=== PATIENT | female | born 1965 ===

== ENCOUNTER 2023-10-03 19:28 | Outpatient (REF) | payer MEDICARE, SELFPAY ==
[2023-10-04 00:23] LABS: C Reactive Protein <0.50 mg/dL (<=0.50)
[2023-10-11 16:10] LABS: Copper Level 105 ug/dL (80-158); Zinc Level 74 ug/dL (44-115)
== END 2023-10-03 19:29 | disposition home or self-care (01) ==
LOC: LAB 19:28
DX: K50.118 Crohn's disease of large intestine with other complication (principal); Z93.2 Ileostomy status
CPT/HCPCS: 36415; 82525; 84255; 84630; 86140

== ENCOUNTER 2023-10-05 13:56 | Outpatient (REF) | payer MEDICARE, SELFPAY ==
--- OUTSIDE RECORDS SUMMARY | 2023-10-05 14:21 | XMS_ITS | CCD ---
Author Name Unknown Address [address] [place] [address] Organization [facility] Care Team Providers Care Automotive Exhaust Emissions Technician Name Role Phone Tatyana FRITZ, Josué Trevizo Primary Care Provider JOSUÉ JOE Primary Care Unavailable JOSUÉ JOE Referring Unavailable JOSUÉ JOE Primary Care Unavailable Josué Joe MD Primary Care Provider [phone] Josué Joe MD Primary Care Provider [phone] DR JOSUÉ JOE Attending Unavailable TATYANA, DR MOSES Consulting Unavailable TATYANA, DR MOSES Admitting Unavailable Josué Joe MD Primary Care Provider Josué Joe MD Primary Care Provider Josué Joe MD Primary Care Provider RICKY GARCES Referring Unavailable JOSUÉ JOE Primary Care Unavailable COLTEN GUTIERREZ Referring Unavailable COLTEN GUTIERREZ Attending Unavailable JOSUÉ JOE Primary Care Unavailable PHILIP BRIGGS Referring Unavailable JOSUÉ JOE Primary Care Unavailable JOSUÉ JOE Primary Care Unavailable JOSUÉ JOE Primary Care Unavailable JARED CARDENAS Attending Unavailable ARNIE LOIN Referring Unavailable JOSUÉ JOE Primary Care Unavailable JOSUÉ JOE Primary Care Unavailable ARNIE LION A Referring Unavailable JOSUÉ JOE Primary Care Unavailable JOSUÉ JOE Primary Care Unavailable ONEAL, EDY Referring Unavailable JOSUÉ JOE Primary Care Unavailable DEVEN MARCE Attending Unavailable DEVEN MARCE Attending Unavailable JOSUÉ JOE Primary Care Unavailable JOSUÉ JOE Primary Care Unavailable ONEAL, EDY Attending Unavailable TATYANAJOSUÉIN Referring Unavailable JANELL KAPLAN Attending Unavailable TATYANAJOSUÉIN Primary Care Unavailable RICKY GARCES Referring Unavailable TATYANA, JOSUÉ LAUREANOIN Primary Care Unavailable RICKY GARCES Referring Unavailable TATYANA, JOSUÉ LAUREANOIN Primary Care Unavailable GINARICKY L Referring Unavailable TATYANAJOSUÉIN Primary Care Unavailable TATYANAJOSUÉ Primary Care Unavailable TATYANAJOSUÉIN Primary Care Unavailable ONEAL, EDY Referring Unavailable TATYANAJOSUÉIN Primary Care Unavailable MELBA REINA Attending Unavailable TATYANAJOSUÉ PERDUEIN Primary Care Unavailable TALIA VILLAGOMEZ Admitting Unavailable RENO BROWN Attending Unavailable TATYANAJOSUÉ PERDUEIN Primary Care Unavailable ARNIE LION Referring Unavailable TATYANAJOSUÉ PERDUE Primary Care Unavailable TATYANAJOSUÉ PERDUEIN Referring Unavailable TATYANAJOSUÉIN Primary Care Unavailable JANELL KAPLAN Attending Unavailable TATYANAJOSUÉ PERDUE Primary Care Unavailable ONEAL, EDY Attending Unavailable ONEAL, EDY Admitting Unavailable TATYANAJOSUÉ PERDUEIN Primary Care Unavailable ONEAL, EDY Attending Unavailable DEIDRE WOOD Admitting Unava ilable MELBA REINA Attending Unavailable TATYNAAJOSUÉ PERDUE Primary Care Unavailable TATYANAJOSUÉ PERDUE Primary Care Unavailable TATYANAJOSUÉ PERDUE Referring Unavailable TATAYNAJOSUÉ Primary Care Unavailable TATYANAJOSUÉIN Primary Care Unavailable ONEAL, EDY Attending Unavailable TATYANAJOSUÉ PERDUE Primary Care Unavailable TATYANAJOSUÉ PERDUE Referring Unavailable JANELL KAPLAN Attending Unavailable TATYANAJOSUÉIN Primary Care Unavailable ONEAL, EDY Referring Unavailable TATYANAJOSUÉIN Primary Care Unavailable ONEAL, EDY Referring Unavailable TATYANAJOSUÉIN Primary Care Unavailable ONEAL, EDY Referring Unavailable TATYANAJOSUÉIN Primary Care Unavailable ONEAL, EDY Referring Unavailable TATYANAJOSUÉIN Primary Care Unavailable ONEAL, EDY Attending Unavailable ONEAL, EDY Referring Unavailable TATYANAJOSUÉIN Primary Care Unavailable ONEAL, EDY Referring Unavailable COMFORT AVITIA MD Attending Unavailab COMFORT Rosado Referring Unavailable TATYANAJOSUÉIN Primary Care Unavailable JANELL KAPLAN Referring Unavail able TATYANAJOSUÉIN Primary Care Unavailable PASKI, JANELL ALPHONSO Referring Unavail able TATYANAJOSUÉ Primary Care Unavailable PASKI, JANELL ALPHONSO Referring Unavail able TATYANAJOSUÉ Primary Care Unavailable PASKI, JANELL APLHONSO Referring Unavail able TATYANAJOSUÉ PERDUE Primary Care Unavailable TATYANAJOSUÉ Primary Care Unavailable TATYANAJOSUÉ Primary Care Unavailable COMFORT AVITIA Referring Unavailable TATYANAJOSUÉ PERDUE Primary Care Unavailable PASKI, JANELL ALPHONSO Referring Unavail able TATYANA, JOSUÉ TREVIZO Primary Care Unavailable TATYANAJOSUÉ Primary Care Unavailable PASKI, JANELL ALPHONSO Referring Unavail able COMFORT AVITIA Referring Unavailable TATYANAJOSUÉ Primary Care Unavailable COMFORT AVITIA Referring Unavailable TATYANA, JOSUÉ TREVIZO Primary Care Unavailable PASKI, JANELL ALPHONSO Referring Unavail able TATYANA, JOSUÉ TREVIZO Primary Care Unavailable COMFORT AVITIA Referring Unavailable JOSUÉ JOE Primary Care Unavailable TATYANAJOSUÉ Primary Care Unavailable PASKI, JANELL ALPHONSO Referring Unavail able PASKI, JANELL ALPHONSO Referring Unavail able TATYANAJOSUÉ PERDUE Primary Care Unavailable PASKI, JANELL ALPHONSO Referring Unavail able JOSUÉ JOE Primary Care Unavailable TATYANAJOSUÉ PERDUE Referring Unavailable TATYANAJOSUÉ Primary Care Unavailable COMFORT AVITIA Referring Unavailable TATYANAJOSUÉ PERDUE Primary Care Unavailable COMFORT AVITIA Referring Unavailable JOSUÉ JOE Primary Care Unavailable JOSUÉ JOE Primary Care Unavailable PASKI, JANELL ALPHONSO Referring Unavail able PASKI, JANELL ALPHONSO Referring Unavail able TATYANAJOSUÉ Primary Care Unavailable TATYANAJOSUÉ Primary Care Unavailable PASKI, JANELL ALPHONSO Referring Unavail able PASKI, JANELL ALPHONSO Referring Unavail able TATYANAJOSUÉ PERDUE Primary Care Unavailable PASKI, JANELL ALPHONSO Referring Unavail able TATYANAJOSUÉ Primary Care Unavailable PASKI, JANELL ALPHONSO Referring Unavail able TATYANA, JOSUÉ TREVIZO Primary Care Unavailable COMFORT AVITIA Referring Unavailable TATYANAJOSUÉ PERDUE Primary Care Unavailable GRETA MONSALVE Referring Unavailable TATYANAJOSUÉ PERDUE Primary Care Unavailable PASKI, JANELL ALPHONSO Referring Unavail able TATYANA, JOSUÉ TREVIZO Primary Care Unavailable TATYANAJOSUÉ Primary Care Unavailable PASKI, JANELL CAMPBELLE Referring Unavail able PASKI, JANELL CAMPBELLE Referring Unavail able TATYANA, JOSUÉ TREVIZO Primary Care Unavailable COMFORT AVITIA Referring Unavailable TATYANA, JOSUÉ TREVIZO Primary Care Unavailable TATYANA, JOSUÉ TREVIZO Primary Care Unavailable PASKI, JANELL CAMPBELLE Referring Unavail able COMFORT AVITIA Referring Unavailable TATYANA, JOSUÉ TREVIZO Primary Care Unavailable TATYANA, JOSUÉ TREVIZO Primary Care Unavailable PASKI, JANELL CAMPBELLE Referring Unavail able AOUAD, LORE Garcia Consulting Unavailable TATYANA, JOSUÉ LAUREANOIN Attending Unavailable TATYANA, JOSUÉ TREVIZO Admitting Unavailable TATYANA, JOSUÉ TREVIZO Primary Care Unavailable BOBBY, ANDRA Consulting Unavailable CRISLESLIE AMARAL Attending Unavailable TATYANA, JOSUÉ TREVIZO Primary Care Unavailable COMFORT AVITIA Referring Unavailable TATYANA, JOSUÉ TREVIZO Primary Care Unavailable PASKI, JANELL CAMPBELLE Referring Unavail able TATYANA, JOSUÉ TREVIZO Primary Care Unavailable PASKI, JANELL CAMPBELLE Referring Unavail able TATYANA, JOSUÉ TREVIZO Primary Care Unavailable PASKI, JANELL MOOREERINE Referring Unavail able TATYANA, JOSUÉ TREVIZO Primary Care Unavailable Allergies Allergy Classification Reported Allergen(s) Allergy Type Date of Onset Reaction(s) Facility Quinolones (antibiotic) (1 source) Ciprofloxacin Drug Allergy 0 Diarrhea [facility] [employer] Work Phone: (20 sources) Ciprofloxacin; Translations: [CIPROFLOXACIN] Drug Allergy 0 Diarrhea [facility] [employer] Phone: (20 sources) Methotrexate; Translations: [METHOTREXATE] Drug Allergy 3 Other: See Comments, Dizziness or Vertigo [facility] (20 sources) Vancomycin; Translations: [VANCOMYCIN] Drug Allergy 3 Other: See Comments, Other (See Comments) [facility] Work Phone: NEGATED: Highlighted row has been ruled out!Unclassified (4 sources) Other Propensity to adverse reactions 3 Other (See Comments) [facility] Medications Current Medications Medication Drug Class(es) Dates Sig (Normalized) Sig (Original) acetaminophen 500 mg oral tablet (12 sources) Start: 06-17-2023 take 1 tablet by mouth four times daily as needed for pain acetaminophen (TYLENOL) 500 MG tablet Take 1 tablet by mouth 4 times daily as needed for Pain 20 tablet 0 06/17/2023 Active Start: 04-23-2023 End: 08-16-2023 take 2 tablets by mouth every six hours as needed acetaminophen (TYLENOL) 325 mg tablet Take 2 tablets by mouth every 6 hours as needed for pain. 0 04/23/2023 08/16/2023 Discontinued (Course of therapy completed) Comment on above: Take 2 tablets by mo uth every 6 hours as needed for pain. acyclovir 400 mg oral tablet (20 sources) Herpesvirus Nucleoside Analog DNA Polymerase Inhibitor, Herpes Simplex Virus Nucleoside Analog DNA Polymerase Inhibitor, Herpes Zoster Virus Nucleoside Analog DNA Polymerase Inhibitor Start: 09-11-2018 take 1 tablet by mouth every four hours acyclovir (ZOVIRAX) 400 MG tablet Take 1 tablet by mouth every 4 hours (while awake) 30 tablet 0 09/11/2018 Active take 1 tablet by dawood [facility] three times daily as needed acyclovir (ZOVIRAX) 400 mg tablet Indications: Crohn's disease of both small and large intestine with intestinal obstruction (HCC) Take 400 mg by mouth three times daily as needed. 0 Active Comment on above: Take 400 mg by mouth three times daily as needed. apixaban 5 mg oral tablet (20 sources) Factor Xa Inhibitor Start: 04-13-2023 End: 07-12-2023 take 1 tablet by mouth twice daily apixaban (ELIQUIS) 5 MG TABS tablet Take 1 tablet by mouth 2 times daily 60 tablet 2 04/13/2023 07/12/2023 Active Start: 03-12-2023 End: 03-14-2023 take 1 tablet by mouth twice daily apixaban (ELIQUIS) 2.5 mg tab(s) Take 1 tablet by mouth twice daily. 60 tablet 0 03/12/2023 03/14/2023 Discontinued Comment on above: Take 1 tablet by da[facility] twice daily. atropine sulfate 0.025 mg / diphenoxylate hydrochloride 2.5 mg oral tablet (20 sources) Anticholinergic, Cholinergic Muscarinic Antagonist, Antidiarrheal Start: 12-24-19 End: 06-21-20 take 2 tablets by mouth once at bedtime diphenoxylate-atrop ine (LOMOTIL) 2.5-0.025 mg per tablet Indications: Diarrhea, unspecified type Take 2 tablets by mouth before meals and at bedtime for 180 days. 240 tablet 5 12/23/2022 06/21/2023 Active Start: 11-30-2018 take 1 tablet by dawood th four times daily diphenoxylate-atropine (LOMOTIL) 2.5-0.025 mg per tablet Indications: Crohn's disease of both small and large intestine with abscess (HCC) TAKE ONE TABLET BY MOUTH FOUR TIMES A DAY 360 tablet 2 11/30/2018 Active Comment on above: TAKE ONE TABLET BY M OUTH FOUR TIMES A DAY Take 2 tablets by mo uth before meals and at bedtime for 180 days. Blood-Glucose Meter (20 sources) Start: 11-23-19 End: 02-22-20 Blood-Glucose Meter 1 Each three times daily. 1 Each 0 11/23/2022 02/21/2023 Active Comment on above: 1 Each three times d aily. busPIRone hydrochloride 7.5 mg oral tablet (20 sources) Start: 02-06-20 take 2 tablets by mouth twice daily busPIRone (BUSPAR) 7.5 MG tablet Take 2 tablets by mouth 2 times daily 120 tablet 2 04/14/2023 Active Comment on above: Take 15 mg by mouth twice daily. [facility] SKIN PROTECTIVE PASTE (3 sources) Start: 04-23-20 End: 05-23-20 [facility] SKIN PROTECTIVE PASTE Apply to affected area as needed (Apply to buttocks after bowel movements). 240 g 0 04/23/2023 05/23/2023 Active Comment on above: Apply to affected ar ea as needed (Apply to buttocks after bowel movements). cholecalciferol 0.025 mg oral tablet (19 sources) Vitamin D take 1 tablet by mouth once daily vitamin D (CHOLECALCIFEROL) 1000 UNIT TABS tablet Take 1 tablet by mouth daily 0 Active codeine sulfate 30 mg oral tablet (20 sources) Opioid Agonist Start: 08-22-20 End: 08-16-20 take 1 tablet by mouth three times daily codeine 30 mg tablet Indications: Diarrhea due to malabsorption Take 1 tablet by mouth three times daily for 30 days. Do not start before August 22, 2023. 90 tablet 0 08/22/2023 08/16/2023 Discontinued (Course of therapy completed) Start: 04-24-2023 End: 03-14-2023 take 1 tablet by mouth twice daily before mealtime codeine 15 mg tablet Indications: Diarrhea due to malabsorption , Short bowel syndrome Take 1 tablet by mouth twice daily before meals for 30 days. Do not start before April 24, 2023. 60 tablet 0 04/24/2023 03/14/2023 Discontinued Start: 03-25-2023 End: 03-14-2023 take 1 tablet by mouth twice daily codeine 15 mg tablet Indications: Diarrhea due to malabsorption , Short bowel syndrome Take 1 tablet by mouth twice daily for 30 days. Do not start before March 25, 2023. 60 tablet 0 03/25/2023 03/14/2023 Discontinued Start: 03-14-2023 End: 09-21-2023 take 1 tablet by mouth three times daily codeine 30 mg tablet Indications: Diarrhea due to malabsorption Take 1 tablet by mouth three times daily for 30 days. Do not start before July 23, 2023. 90 tablet 0 07/23/2023 08/16/2023 Discontinued (Course of therapy completed) Start: 01-14-2023 End: 04-13-2023 take 1 tablet by mouth twice daily before mealtime codeine 15 mg tablet Indications: Diarrhea due to malabsorption , Short bowel syndrome Take 1 tablet by mouth twice daily before meals for 30 days. 60 tablet 0 02/23/2023 03/14/2023 Discontinued Comment on above: Take 1 tablet by da[place] th twice daily before meals for 30 days. Take 1 tablet by [facility] [facility] twice daily before meals for 30 days. Do not start before February 12, 2023. Take 1 tablet by da[place] th twice daily before meals for 30 days. Do not start before March 14, 2023. Take 1 tablet by da[place] th twice daily for 25 days. Take 1 tablet by [facility] [facility] twice daily before meals for 30 days. Do not start before April 24, 2023. Take 1 tablet by [place] [facility] twice daily for 30 days. Do not start before March 25, 2023. Take 1 tablet by da[place] th three times daily for 30 days. Take 1 tablet by [facility] [facility] three times daily for 30 days. Do not start before May 24, 2023. Take 1 tablet by [facility] [facility] three times daily for 30 days. Do not start before April 23, 2023. Take 1 tablet by [facility] [facility] three times daily for 30 days. Do not start before August 22, 2023. Take 1 tablet by [facility] three times daily for 30 days. Do not start before July 23, 2023. Take 1 tablet by [facility] three times daily for 30 days. Do not start before June 23, 2023. DULoxetine 60 mg delayed release oral capsule (20 sources) Serotonin and Norepinephrine Reuptake Inhibitor Start: 3 take 1 capsule by mouth once daily DULoxetine (CYMBALTA) 30 MG extended release capsule Take 1 capsule by mouth daily 90 capsule 3 04/28/2023 Active Start: 01-21-2021 End: 03-14-2023 take 1 capsule by mouth once daily DULoxetine (CYMBALTA) 30 MG extended release capsule Take 1 capsule by mouth daily 90 capsule 1 12/02/2022 Active Start: 05-19-2010 End: 03-14-2023 take 1 capsule by mouth once daily DULoxetine (CYMBALTA) 60 mg capsule Take 1 capsule by mouth once daily. 0 03/15/2023 Active Comment on above: Take 60 mg by mouth once daily. Take 30 mg by mouth once daily. Take 1 capsule by mo [facility] once daily. enteric contrast (will be provided with radiology test) (1 source) Start: 2 End: 2 enteric contrast (will be provided with radiology test) For CT ENTEROGRAPHY W IVCON order Administer, As Directed One Time Only, via Oral, Rectal, both Oral and Rectal, Enteric Tube, Stoma or Indwelling Catheter, Enteric Contrast as designated per enteric contrast guidelines. 1 Each 0 08/12/2022 08/13/2022 Active Comment on above: For CT ENTEROGRAPHY W IVCON order Administer, As Directed One Time Only, via Oral, Rectal, both Oral and Rectal, Enteric Tube, Stoma or Indwelling Catheter, Enteric Contrast as designated per enteric contrast guidelines. fluticasone propionate 0.05 mg/actuat metered dose nasal spray (20 sources) Corticosteroid Start: 3 take 1 spray(s) nasal route once daily fluticasone (FLONASE) 50 MCG/ACT nasal spray 1 spray by Each Nostril route daily 1 [place] in each nostril 1 each 5 01/25/2023 Active Start: 11-29-2018 take 1 spray(s) nasa l route once daily fluticasone (FLONASE) 50 MCG/ACT nasal spray 1 spray by Each Nare route daily 1 [place] in each nostril 1 Bottle 0 11/29/2018 Active take 1 spray(s) nasa l route once daily as needed fluticasone (FLONASE ALLERGY RELIEF) 50 mcg/actuation nasal spray Use 1 [place] in each nostril once daily as needed. 0 Active Comment on above: Use 1 [place] in each nostril once daily as needed. Handicap Placard MISC (12 sources) Start: 12-02-19 Handicap Placard MISC Indications: Fibromyalgia , Crohn's disease of both small and large intestine with intestinal obstruction (HCC) by Does not apply route EXPIRATION DATE: 3 YEARS 1 each 0 12/02/2022 Active iv contrast (will be provided with radiology test) (1 source) Start: 08-12-20 End: 08-13-20 iv contrast (will be provided with radiology test) CT Enterography W Inject, intravenously, once for 1 dose.No IV access, insert saline lock prior to the beginning of sedation, infusion, injection of imaging exam. Discontinue saline lock post exam. If Pt. has a central line or IVAD, may access for administration according to line specific nursing protocol. Once exam is complete flush line and de-access according to line specific nursing protocol in the CT contrast administration guidelines link. 1 Each 0 08/12/2022 08/13/2022 Active Comment on above: CT Enterography W In ject, intravenously, once for 1 dose.No IV access, insert saline lock prior to the beginning of sedation, infusion, injection of imaging exam. Discontinue saline lock post exam. If Pt. has a central line or IVAD, may access for administration according to line specific nursing protocol. Once exam is complete flush line and de-access according to line specific nursing protocol in the CT contrast administration guidelines link. lidocaine 0.05 mg/mg medicated patch (1 source) Antiarrhythmic, Amide Local Anesthetic Start: 06-17-20 End: 06-27-20 lidocaine (LIDODERM) 5 % Place 1 patch onto the skin daily for 10 days 12 hours on, 12 hours off. 10 patch 0 06/17/2023 06/27/2023 Active loratadine 10 mg oral tablet (19 sources) Start: 11-22-19 18 take 1 tablet by mouth once daily loratadine (CLARITIN) 10 MG tablet Take 1 tablet by mouth daily 30 tablet 0 11/22/2017 Active methotrexate 2.5 mg oral tablet (15 sources) Folate Analog Metabolic Inhibitor Start: 09-16-20 End: 09-16-20 methotrexate 2.5 mg tablet Take 6 tablets by mouth every Monday. Take by mouth as instructed once each week. 72 tablet 4 09/16/2022 09/16/2023 Active Comment on above: Take 6 tablets by mo [facility] every Monday. Take by mouth as instructed once each week. mupirocin 0.02 mg/mg topical ointment (1 source) RNA Synthetase Inhibitor Antibacterial Start: 06-17-20 mupirocin (BACTROBAN) 2 % ointment 24 hr NIFEdipine 30 mg extended release oral tablet (20 sources) Dihydropyridine Calcium Channel Parviz Start: 04-12-20 take 1 tablet by mouth once daily NIFEdipine (ADALAT CC) 30 MG extended release tablet Take 1 tablet by mouth daily 30 tablet 1 04/12/2023 Active Start: 01-23-2023 take 1 tablet by [facility] once daily NIFEdipine (ADALAT CC) 30 MG extended release tablet Take 1 tablet by mouth daily 30 tablet 1 01/23/2023 Active Start: 11-11-2022 take 1 tablet by dawood th once daily NIFEdipine (ADALAT CC) 30 MG extended release tablet Take 1 tablet by mouth daily 30 tablet 1 11/11/2022 Active Start: 09-12-2022 take 1 tablet by da[place] th once daily NIFEdipine (ADALAT CC) 30 MG extended release tablet Take 1 tablet by mouth daily 30 tablet 1 09/12/2022 Active Start: 09-09-2022 take 1 tablet by da[place] th once daily NIFEdipine (ADALAT CC) 60 MG extended release tablet Take 1 tablet by mouth daily 90 tablet 3 09/09/2022 Active Start: 07-23-2021 take 1 tablet by dawood th once daily NIFEdipine (ADALAT CC) 60 MG extended release tablet Take 1 tablet by mouth daily Do not crush or break. 90 tablet 3 07/23/2021 Active Start: 08-28-2020 take 1 tablet by da[place] th once daily NIFEdipine (ADALAT CC) 60 MG extended release tablet Take 1 tablet by mouth daily Do not crush or break. 90 tablet 3 08/28/2020 Active take 1 tablet by dawood th once daily NIFEdipine ER (PROCARDIA XL) 30 mg 24 hr tablet Indications: Crohn's disease of both small and large intestine with intestinal obstruction (HCC) Take 30 mg by mouth once daily. 0 Active Comment on above: Take 30 mg by mouth once daily. ondansetron 4 mg oral tablet (20 sources) Serotonin-3 Receptor Antagonist Start: take 1 tablet by mouth every eight hours as needed for nausea ondansetron (ZOFRAN) 4 MG tablet Take 1 tablet by mouth every 8 hours as needed for Nausea 20 tablet 0 03/29/2023 Active Start: 11-13-2022 End: 11-13-2022 ondansetron (ZOFRAN) injecti on 4 mg Start: 11-12-2022 End: 11-12-2022 ondansetron (ZOFRAN) injecti on 4 mg Start: 08-28-2021 End: 12-30-2022 take 1 tablet by mouth every eight hours as needed for nausea ondansetron (ZOFRAN) 4 MG tablet Take 1 tablet by mouth every 8 hours as needed for Nausea 20 tablet 0 08/28/2021 Active Start: 08-28-2021 End: 08-28-2021 ondansetron (ZOFRAN) injecti on 4 mg Start: 08-25-2021 End: 08-28-2021 take 1 tablet by mouth three times daily as needed for nausea ondansetron (ZOFRAN-ODT) 4 MG disintegrating tablet Take 1 tablet by mouth 3 times daily as needed for Nausea or Vomiting 21 tablet 0 08/25/2021 08/28/2021 Discontinued (LIST CLEANUP) Comment on above: Take 1 tablet by dawood th every 8 hours as needed for nausea/vomiting. Take 4 mg by mouth e very 8 hours as needed for nausea/vomiting. microencapsulated potassium chloride 10 meq extended release oral tablet (10 sources) Start: 08-28-2021 potassium chloride (KLOR-CON M) extended release tablet 10 mEq Start: 08-28-2021 take 1 tablet by dawood th once daily potassium chloride (KLOR-CON M) 20 MEQ extended release tablet Take 1 tablet by mouth daily 30 tablet 0 08/28/2021 Active valsartan 160 mg oral tablet (14 sources) Angiotensin 2 Receptor Parviz Start: 09-12-2022 take 1 tablet by mouth once daily valsartan (DIOVAN) 160 MG tablet Take 1 tablet by mouth daily 30 tablet 1 09/12/2022 Active Comment on above: Take 160 mg by mouth once daily. vitamin b12 1 mg/ml injectable solution (20 sources) Vitamin B12 Start: 01-25-2022 cyanocobalamin 1000 MCG/ML injection Inject 0.1 mLs into the skin every 30 days 10 mL 11 01/25/2022 Active Start: 11-12-2018 cyanocobalamin 1000 MCG/ML injection Inject 0.1 mLs into the skin every 30 days 10 mL 0 11/12/2018 Active End: 12-23-2022 inject 1000 ug by intramuscular injection every month cyanocobalamin 1,000 mcg/mL Indications: Crohn's disease of both small and large intestine with intestinal obstruction (HCC) Inject 1,000 mcg intramuscularly once every month. 0 12/23/2022 Discontinued Comment on above: Inject 1,000 mcg int ramuscularly once every month. Completed/Discontinued Medications Medication Drug Class(es) Dates Sig (Normalized) Sig (Original) ALPRAZolam 0.25 mg oral tablet (20 sources) Benzodiazepine Start: 05-02-2017 End: 07-07-2023 ALPRAZolam (XANAX) 0.25 mg tablet Take 0.25 mg by mouth as needed. 0 05/02/2017 Active Comment on above: Take 0.25 mg by mout h as needed. Calcium Carbonate / vitamin D3 (20 sources) take 1 tablet by mouth once daily calcium carbonate/vitami n D3 (CALTRATE-600 PLUS VITAMIN D3 ORAL) Take 1 tablet by mouth once daily. 0 Suspended take 1 tablet by mouth once baljinder y calcium carbonate/vitamin D3 (CALTRATE-600 PLUS VITAMIN D3 ORAL) Take 1 tablet by mouth once daily. 0 Active Comment on above: Take 1 tablet by da[place] [facility] once daily. calcium chloride 0.0014 meq/ml / potassium chloride 0.004 meq/ml / sodium chloride 0.103 meq/ml / sodium lactate 0.028 meq/ml injectable solution (1 source) Start: 2022 End: 2022 lactated ringers IV soln infusion casirivimab-imdevim ab 1,200 mg in sodium chloride 0.9 % 110 mL IVPB (1 source) Start: 2020 End: 2020 casirivimab-imdevim ab 1,200 mg in sodium chloride 0.9 % 110 mL IVPB COMPOUNDED PRESCRIPTION (20 sources) COMPOUNDED PRESCRIPTION Probiotic Digestive System Support 0 Active Comment on above: Probiotic Digestive System Support 2 ml fentaNYL 0.05 mg/ml injection (1 source) Opioid Agonist Start: 2022 End: 2022 fentaNYL (SUBLIMAZE) injection 25 mcg glucagon (rdna) 1 mg injection (2 sources) Antihypoglycemic Agent Start: 2022 inject 1 mg intravenously once glucagon (GLUCAGEN) 1 mg/mL injection Indications: Crohn's disease of large intestine with complication (HCC) Inject 1 mg intravenously one time only for 1 dose. For MRI Enterography, Inject 1 mg intravenously, as directed. Slow push at the appropriate time during MRI Scan 1 Each 0 07/21/2023 Active Comment on above: Inject 1 mg intraven ously one time only for 1 dose. For MRI Enterography, Inject 1 mg intravenously, as directed. Slow push at the appropriate time during MRI Scan 500 ml glucose 50 mg/ml / potassium chloride 0.02 meq/ml / sodium chloride 4.5 mg/ml injection (1 source) Start: 2020 End: 2020 dextrose 5 % and 0.45 % NaCl with KCl 20 mEq infusion iopamidol (ISOVUE-370) 76 % injection 75 mL (1 source) Start: 2022 End: 2022 iopamidol (ISOVUE-370) 76 % injection 75 mL Lactobacillus acidophilus (20 sources) Lactobacillus acidophilus (PROBIOTIC ORAL) Take 14 Billion Particle Units by mouth once daily. 0 Suspended Lactobacillus ac idophilus (PROBIOTIC ORAL) Take 14 Billion Particle Units by mouth once daily. 0 Active Lactobacillus ac idophilus (PROBIOTIC ORAL) Take 14 Billion Particle Units by mouth twice daily. 0 Active take 1 tablet by mouth once baljinder y Lactobacillus (PROBIOTIC ACIDOPHILUS PO) Take 1 tablet by mouth daily 0 Active Lactobacillus (P ROBIOTIC ACIDOPHILUS PO) Take by mouth 0 Active Comment on above: Take 14 Billion Part icle Units by mouth twice daily. Take 14 Billion Part icle Units by mouth once daily. loperamide hydrochloride 0.133 mg/ml oral suspension (20 sources) Opioid Agonist Start: 3 End: take 4 mg by mouth every six hours as needed loperamide (IMODIUM A-D) 1 mg/7.5 mL oral liquid Take 30 mL by mouth four times daily as needed. 236 mL 1 12/06/2022 08/16/2023 Discontinued (Course of therapy completed) take 1 capsule by mo uth four times daily loperamide (IMODIUM) 2 MG capsule Take 1 capsule by mouth 4 times daily 0 Active End: 11-30-2022 loperamide (IMODIUM) 2 MG ca psule Take 1 capsule by mouth 8 times daily 0 Active Comment on above: Take 2 mg by mouth a s needed. Take 15 mL by mouth four times daily as needed for up to 14 days. Take 30 mL by mouth four times daily as needed. 1 ml LORazepam 2 mg/ml injection (1 source) Benzodiazepine Start: 11-13-2022 End: 11-13-2022 LORazepam (ATIVAN) injection 0.5 mg 1 ml morphine sulfate 4 mg/ml cartridge (3 sources) Opioid Agonist Start: 11-13-2022 End: 11-13-2022 morphine injection 4 mg Start: 11-13-2022 End: 11-13-2022 morphine injection 4 mg Start: 11-12-2022 End: 11-12-2022 morphine (PF) injection 2 mg oxyCODONE hydrochloride 5 mg oral tablet (12 sources) Opioid Agonist Start: 04-23-2023 End: 08-16-2023 take 1 tablet by mouth every six hours as needed oxyCODONE IR (ROXICODONE) 5 mg immediate release tablet Indications: Crohn's disease of both small and large intestine without complication (HCC) , Attention to ileostomy (HCC) , Postoperative pain Take 1 tablet by mouth every 6 hours as needed. 10 tablet 0 04/23/2023 08/16/2023 Discontinued (Course of therapy completed) Start: 11-23-2022 End: 11-30-2022 take 1 tablet by mouth every six hours as needed oxyCODONE IR (ROXICODONE) 5 mg immediate release tablet Indications: Post-op pain Take 1 tablet by mouth every 6 hours as needed for up to 7 days. 28 tablet 0 11/23/2022 11/30/2022 Comment on above: Take 1 tablet by dawood every 6 hours as needed for up to 7 days. Take 1 tablet by dawood th every 6 hours as needed. predniSONE 20 mg oral tablet (20 sources) Start: 07-25-2022 End: 08-24-2022 take 1 tablet by mouth once daily predniSONE (DELTASONE) 20 mg tablet Take 1 tablet by mouth once daily. 30 tablet 1 07/25/2022 08/24/2022 Start: 06-17-2021 take 1 tablet by dawood twice daily predniSONE (DELTASONE) 5 mg tablet Take 1 tablet by mouth twice daily. 34 tablet 0 06/17/2021 Active Start: 06-08-2021 take 2 tablets by mo [facility] once daily predniSONE (DELTASONE) 10 mg tablet Take 2 tablets by mouth once daily. 100 tablet 0 06/08/2021 Suspended Comment on above: Take 2 tablets by mo [facility] once daily. Take 1 tablet by dawood twice daily. Take 1 tablet by dawood once daily. 50 ml sodium chloride 9 mg/ml injection (3 sources) Start: 11-13-2022 End: 11-13-2022 0.9 % sodium chloride bolus Start: 08-28-2021 End: 08-28-2021 0.9 % sodium chloride bolus Start: 08-27-2021 End: 08-28-2021 0.9 % sodium chloride infusi on traZODone hydrochloride 50 mg oral tablet (20 sources) Serotonin Reuptake Inhibitor Start: 11-11-2022 take 2 tablets by mouth once daily at bedtime traZODone (DESYREL) 50 mg tablet Take 100 mg by mouth daily at bedtime. 0 11/11/2022 Active Start: 09-12-2022 take 2 tablets by mo uth once daily traZODone (DESYREL) 50 MG tablet Indications: Primary insomnia Take 2 tablets by mouth nightly 60 tablet 0 09/12/2022 Active Comment on above: Take 100 mg by mouth daily at bedtime. 1 ml ustekinumab 90 mg/ml prefilled syringe (20 sources) Interleukin-12 Antagonist, Interleukin-23 Antagonist Start: 08-15-2022 End: 12-23-2022 ustekinumab (STELARA) 90 mg/mL injection Indications: Crohn's disease of small and large intestines with complication (HCC) Inject 1 syringe (90 mg) under the skin every 6 weeks 1 mL 1 08/15/2022 12/23/2022 Discontinued Start: 12-06-2021 End: 05-09-2022 ustekinumab (STELARA) 90 mg/ mL injection Indications: Crohn's disease of small and large intestines with complication (HCC) Inject 1 syringe (90 mg) under the skin every 6 weeks 1 mL 1 05/09/2022 Active Start: 11-06-2019 ustekinumab (S TELARA) 90 mg/mL injection Inject 1 mL subcutaneously every 8 weeks. 4 Syringe 5 11/06/2019 Active Start: 02-06-2018 End: 12-23-2022 inject 26 mL intravenously once ustekinumab (STELARA) 130 mg/26 mL injection Inject 26 mL intravenously one time only for 1 dose. 26 mL 0 02/06/2018 12/23/2022 Discontinued Ustekinumab ([place]) Indications: every 6 weeks injection Inject into the skin Indications: every 6 weeks injection 0 Active Ustekinumab ([place]) Indications: every 8 weeks injection Inject into the skin 0 Active Comment on above: Inject 1 mL subcutan eously every 8 weeks. Inject 1 syringe (90 mg) under the skin every 6 weeks Inject 26 mL intrave nously one time only for 1 dose. verapamil hydrochloride 120 mg oral tablet (5 sources) Calcium Channel Parviz take 1 tablet by mouth once daily verapamil (CALAN, ISOPTIN) 120 mg tablet Take 120 mg by mouth once daily. 0 Active Comment on above: Take 120 mg by mouth once daily. zolpidem tartrate 10 mg oral tablet (20 sources) gamma-Aminobutyric Acid-ergic Agonist Start: 0 take 1 tablet by mouth every twenty-four hours as needed ZOLPIDEM 10 MG TAB Take 10 mg by mouth at bedtime as needed. 0 05/19/2010 Active Comment on above: Take 10 mg by mouth at bedtime as needed. Problems Active Problems Problem Classification Problem Date Documented Da te Episodic/Chronic Anxiety disorders (20 sources) Anxiety; Translations: [Anxiety disorder, unspecified] Onset: 06-26-2018 08-20-2018 Chronic Chronic kidney disease (20 sources) Anemia of renal disease; Translations: [Chronic kidney disease, unspecified] Onset: 09-22-2022 Chronic Complications of surgical procedures or medical care (20 sources) Short bowel syndrome; Translations: [Postsurgical malabsorption, not elsewhere classified] Onset: 03-05-2023 Chronic Deficiency and other anemia (1 source) Anemia in chronic kidney disease; Translations: [Anemia of renal disease] Onset: 11-17-2022 Chronic Essential hypertension (20 sources) Essential hypertension; Translations: [Essential (primary) hypertension] Onset: 04-17-2017 08-19-2018 Chronic Miscellaneous mental health disorders (19 sources) Primary insomnia; Translations: [Primary insomnia] Onset: 12-22-2017 12-22-2017 Chronic Nausea and vomiting (1 source) Nausea, vomiting and diarrhea; Translations: [Nausea with vomiting, unspecified] Episodic Nutritional deficiencies (20 sources) Undernutrition; Translations: [Mild protein-calorie malnutrition] Onset: 11-16-2022 11-17-2022 Chronic Osteoporosis (20 sources) Osteoporosis; Translations: [Age-related osteoporosis without current pathological fracture] Onset: 08-02-2004 04-17-2017 Chronic Other aftercare (2 sources) Surgical follow-up; Translations: [Encounter for follow-up examination after completed treatment for conditions other than malignant neoplasm] Episodic Other aftercare (15 sources) Patient encounter status; Translations: [Encounter for therapeutic drug level monitoring] Onset: 04-21-2023 Episodic Other gastrointestinal disorders (20 sources) Ileostomy present; Translations: [Ileostomy status] Onset: 11-21-2022 11-21-2022 Chronic Other gastrointestinal disorders (3 sources) Diarrhea; Translations: [Intestinal malabsorption, unspecified] Chronic Other gastrointestinal disorders (1 source) Encounter for attention to ileostomy; Translations: [Attention to ileostomy ([facility])] Onset: 04-20-2023 Chronic Other gastrointestinal disorders (3 sources) Ileostomy status; Translations: [Ileostomy in place (HCC)] Onset: 04-20-2023 Chronic Other gastrointestinal disorders (1 source) Intestinal malabsorption, unspecified; Translations: [Diarrhea due to malabsorption] Onset: 03-02-2023 Chronic Other gastrointestinal disorders (3 sources) Diarrhea; Translations: [Diarrhea, unspecified] Episodic Other nutritional; endocrine; and metabolic disorders (1 source) Hypocalcemia; Translations: [Hypocalcemia] Onset: 11-17-2022 11-17-2022 Chronic Other nutritional; endocrine; and metabolic disorders (1 source) Hypomagnesemia; Translations: [Hypomagnesemia] Onset: 11-17-2022 11-17-2022 Chronic Other nutritional; endocrine; and metabolic disorders (1 source) Hypophosphatemia; Translations: [Other disorders of phosphorus metabolism] Onset: 11-17-2022 11-17-2022 Chronic Other nutritional; endocrine; and metabolic disorders (20 sources) Hypoalbuminemia; Translations: [Other disorders of plasma-protein metabolism, not elsewhere classified] Onset: 11-17-2022 11-17-2022 Chronic Other nutritional; endocrine; and metabolic disorders (20 sources) Hyperphosphatemia; Translations: [Other disorders of phosphorus metabolism] Onset: 03-04-2023 03-14-2023 Chronic Other nutritional; endocrine; and metabolic disorders (20 sources) Feeding problem; Translations: [Feeding difficulties] Onset: 03-03-2023 Episodic Regional enteritis and ulcerative colitis (20 sources) Crohn's disease of small AND large intestines; Translations: [Crohn's disease of both small and large intestine with intestinal obstruction] Onset: 01-19-2011 Resolved: 01-25-2022 Chronic Substance-related disorders (20 sources) Nicotine dependence; Translations: [Nicotine dependence, unspecified, uncomplicated] Onset: 11-14-2022 11-17-2022 Chronic Unclassified (1 source) Post Op Onset: 07-24-2023 Past or Other Problems Problem Classification Problem Date Documented Da te Episodic/Chronic Acute and unspecified renal failure (20 sources) Acute tubular necrosis; Translations: [Acute kidney failure with tubular necrosis] Onset: 03-05-2023 03-14-2023 Episodic Bacterial infection; unspecified site (20 sources) Bacteremia caused by Gram-positive bacteria; Translations: [Bacteremia] Onset: 03-02-2023 Resolved: 04-28-2023 03-04-2023 Episodic Complication of device; implant or graft (20 sources) Complication of intravascular line; Translations: [Unspecified complication of cardiac and vascular prosthetic device, implant and graft, initial encounter] Onset: 03-03-2023 03-14-2023 Episodic Complications of surgical procedures or medical care (20 sources) Infection of intravenous catheter; Translations: [Unspecified infection due to central venous catheter, initial encounter] Onset: 03-03-2023 03-14-2023 Episodic Deficiency and other anemia (20 sources) Anemia; Translations: [Anemia, unspecified] Onset: 09-16-2022 Episodic Deficiency and other anemia (20 sources) Iron deficiency anemia; Translations: [Other iron deficiency anemias] Onset: 09-22-2022 Episodic Deficiency and other anemia (3 sources) Anemia, unspecified; Translations: [Anemia, unspecified] Onset: 09-16-2022 Episodic Deficiency and other anemia (1 source) Other iron deficiency anemias; Translations: [Other iron deficiency anemia] Onset: 09-22-2022 Episodic Fever of unknown origin (10 sources) Fever, unspecified; Translations: [Fever] Onset: 02-25-2023 Resolved: 04-28-2023 Episodic Fluid and electrolyte disorders (20 sources) Hypokalemia; Translations: [Hypokalemia] Onset: 08-21-2018 Resolved: 12-24-2018 12-24-2018 Episodic Intestinal obstruction without hernia (20 sources) Small bowel obstruction; Translations: [Unspecified intestinal obstruction, unspecified as to partial versus complete obstruction] Onset: 04-22-2017 Resolved: 04-28-2023 05-04-2020 Episodic Other aftercare (16 sources) Marijuana user; Translations: [Other laborer [employer] (current) drug therapy] Onset: 04-19-2023 04-19-2023 Episodic Other aftercare (1 source) Other care home (current) drug therapy; Translations: [Medical marijuana use] Onset: 04-19-2023 Episodic Other connective tissue disease (20 sources) Fibromyalgia; Translations: [Fibromyalgia] Onset: 08-20-2018 08-20-2018 Episodic Other connective tissue disease (20 sources) Muscle pain; Translations: [Myalgia, unspecified site] Onset: 08-02-2004 04-17-2017 Episodic Other connective tissue disease (1 source) Fibromyalgia; Translations: [Fibromyalgia] Onset: 04-20-2023 Episodic Other endocrine disorders (19 sources) Hypoglycemia; Translations: [Hypoglycemia, unspecified] Onset: 08-21-2018 Resolved: 12-24-2018 12-24-2018 Chronic Other gastrointestinal disorders (2 sources) Diarrhea, unspecified; Translations: [Diarrhea due to malabsorption] Onset: 09-12-2022 Episodic Other lower respiratory disease (1 source) Other abnormalities of breathing; Translations: [Respiratory insufficiency] Onset: 11-13-2022 Episodic Other nervous system disorders (20 sources) Postoperative pain ; Translations: [Other acute postprocedural pain] Onset: 11-21-2022 11-21-2022 Episodic Other nervous system disorders (2 sources) Other acute postprocedural pain; Translations: [Postoperative pain] Onset: 11-13-2022 Episodic Other screening for suspected conditions (not mental disorders or infectious disease) (20 sources) Encounter for screening for lipoid disorders; Translations: [Other specified abnormal findings of blood chemistry] Onset: 08-16-2022 03-14-2023 Episodic Phlebitis; thrombophlebitis and thromboembolism (20 sources) Acute deep venous thrombosis of upper extremity; Translations: [Acute embolism and thrombosis of deep veins of left upper extremity] Onset: 03-08-2023 03-14-2023 Episodic Residual codes; unclassified (1 source) Other specified health status; Translations: [On total parenteral nutrition (TPN)] Onset: 04-20-2023 Episodic Skin and subcutaneous tissue infections (2 sources) Abscess of lower limb; Translations: [Cutaneous abscess of limb, unspecified] Onset: 06-17-2023 06-17-2023 Episodic Spondylosis; intervertebral disc disorders; other back problems (19 sources) Chronic back pain ; Translations: [Dorsalgia, unspecified] Onset: 01-17-2018 08-20-2018 Episodic Viral infection (19 sources) Disease caused by 2019-nCoV; Translations: [COVID-19] Onset: 08-26-2021 Episodic Results Test Name Value Interpretation Reference Range Facility CBC with Diffon 09-25-2023 Abs. Basophil 0.04 k/uL Normal 0.00-0.20 [facility] Comment on above: Performed By: #### C P, ANURADHA, MG, CDP ####[facility] [place] [address] [facility] Director: Samuel Ayers MD Abs.Imm.Granulocyte <0.03 Normal 0.00-0.30 [facility] Comment on above: Performed By: #### C P, ANURADHA, MG, CDP ####[address] , [place] [address] Lab Director: Samuel Ayers MD Abs.Neutrophil (Seg) 2.75 k/uL Normal 1.50-8.10 [facility] Comment on above: Performed By: #### C P, ANURADHA, MG, CDP ####[address] , [place] [address] Lab Director: Samuel Ayers MD Basophils/100 WBC (Bld) 1 % Normal 0-2 [facility] Comment on above: Performed By: #### C P, ANURADHA, MG, CDP ####[address] [place] [address] [facility] Director: Samuel Ayers MD Eosinophils (Bld) [#/Vol] 0.15 10*3/uL Normal 0.00-0.44 [facility] Comment on above: Performed By: #### C P, ANURADHA, MG, CDP ####[address] , [place] [address] Lab Director: Samuel Ayers MD Eosinophils/100 WBC (Bld) 3 % Normal 1-4 [facility] Comment on above: Performed By: #### C P, ANURADHA, MG, CDP ####[address] , [place] [address] Lab Director: Samuel Ayers MD Erythrocyte distribution width (RBC) [Ratio] 14.7 % High 11.8-14.4 [facility] Comment on above: Performed By: #### C P, ANURADHA, MG, CDP ####[address] , [facility] Lab Director: Samuel Ayers MD Hematocrit (Bld) [Volume fraction] 31.7 % Low 36.3-47.1 [facility] Comment on above: Performed By: #### C P, ANURADHA, MG, CDP ####[address] , [place] [id number] Lab Director: Samuel Ayers MD Hemoglobin (Bld) [Mass/Vol] 10.1 g/dL Low 11.9-15.1 [facility] Comment on above: Performed By: #### C P, ANURADHA, MG, CDP ####[address] , [place] [id number] lab Director: Samuel Ayers MD Immature granulocytes/100 WBC (Bld) 0 % Normal 0 [facility] Comment on above: Performed By: #### C P, ANURADHA, MG, CDP ####[address] , [facility] lab Director: Samuel Ayers MD Lymphocytes (Bld) [#/Vol] 2.15 10*3/uL Normal 1.10-3.70 [facility] Comment on above: Performed By: #### C P, ANURADHA, MG, CDP ####[address] , [place] [id number] lab Director: Samuel Ayers MD Lymphocytes/100 WBC (Bld) 38 % Normal 24-43 [facility] Comment on above: Performed By: #### C P, ANURADHA, MG, CDP ####[address] , [facility] lab Director: Samuel Ayers MD MCH (RBC) [Entitic mass] 27.6 pg Normal 25.2-33.5 [facility] Comment on above: Performed By: #### C P, ANURADHA, MG, CDP ####[address] [place] [address] lab Director: Samuel Ayers MD MCHC (RBC) [Mass/Vol] 31.9 g/dL Normal 28.4-34.8 [facility] Comment on above: Performed By: #### C P, ANURADHA, MG, CDP ####[address] , [place] [address] [facility] Director: Samuel Ayers MD MCV (RBC) [Entitic vol] 86.6 fL Normal 82.6-102.9 [facility] Comment on above: Performed By: #### C P, ANURADHA, MG, CDP ####[address] , [place] [address] lab Director: Samuel Ayers MD Monocytes (Bld) [#/Vol] 0.52 10*3/uL Normal 0.10-1.20 [facility] Comment on above: Performed By: #### C P, ANURADHA, MG, CDP ####[address] , [place] [address] lab Director: Samuel Ayers MD Monocytes/100 WBC (Bld) 9 % Normal 3-12 [facility] Comment on above: Performed By: #### C P, ANURADHA, MG, CDP ####[address] , [place] [address] lab Director: Samuel Ayers MD Neutrophil (Seg) 49 % Normal 36-65 [facility] Comment on above: Performed By: #### C P, ANURADHA, MG, CDP ####[address] , [facility] lab Director: Samuel Ayers MD NRBC Automated 0.0 per [address] [facility] Comment on above: Performed By: #### C P, ANURADHA, MG, CDP ####[address] , [facility] lab Director: Samuel Ayers MD Platelet mean volume (Bld) [Entitic vol] 10.7 fL Normal 8.1-13.5 [facility] Comment on above: Performed By: #### C P, ANURADHA, MG, CDP ####[address] , [place] [id number] Lab Director: Samuel Ayers MD Platelets (Bld) [#/Vol] 261 10*3/uL Normal 138-453 [facility] Comment on above: Performed By: #### C P, ANURADHA, MG, CDP ####[address] , [place] [id number] Lab Director: Samuel Ayers MD RBC (Bld) [#/Vol] 3.66 10*6/uL Low 3.95-5.11 [facility] Comment on above: Performed By: #### C P, ANURADHA, MG, CDP ####[address] , [place] [id number] Lab Director: Samuel Ayers MD WBC (Bld) [#/Vol] 5.6 10*3/uL Normal 3.5-11.3 [facility] Comment on above: Performed By: #### C P, ANURADHA, MG, CDP ####[address] , [place] [id number] Lab Director: Samuel Ayers MD Comp Metabolic Profon 2022 Albumin [Mass/Vol] 3.6 g/dL Normal 3.5-5.2 [facility] Comment on above: Performed By: #### C P, ANURADHA, MG, CDP ####[address] , [place] [id number] Lab Director: Samuel Ayers MD Albumin/Glob Ratio 1.2 Normal 1.0-2.5 [facility] Comment on above: Performed By: #### C P, ANURADHA, MG, CDP ####[address] [place] [address] Lab Director: Samuel Ayers MD Alkaline Phos 137 U/L High 35-104 [facility] Comment on above: Performed By: #### C P, ANURADHA, MG, CDP ####[address] , [place] [id number] lab Director: Samuel Ayers MD ALT [Catalytic activity/Vol] 25 U/L Normal 5-33 [facility] Comment on above: Performed By: #### C P, ANURADHA, MG, CDP ####[address] , [place] [id number] lab Director: Samuel Ayers MD Anion gap [Moles/Vol] 8 mmol/L Low 9-17 [facility] Comment on above: Performed By: #### C P, ANURADHA, MG, CDP ####[address] , [facility]83 lab Director: Samuel Ayers MD AST [Catalytic activity/Vol] 27 U/L Normal <32 [facility] Comment on above: Performed By: #### C P, ANURADHA, MG, CDP ####[address] , [place] [id number] lab Director: Samuel Ayers MD Bilirubin [Mass/Vol] 0.5 mg/dL Normal 0.3-1.2 [facility] Comment on above: Performed By: #### C P, ANURADHA, MG, CDP ####[address] , [facility] lab Director: Samuel Ayers MD BUN/CRE Ratio 31 High 9-20 [facility] Comment on above: Performed By: #### C P, ANURADHA, MG, CDP ####[address] [place] [address] lab Director: Samuel Ayers MD Calcium [Mass/Vol] 8.8 mg/dL Normal 8.6-10.4 [facility] Comment on above: Performed By: #### C P, ANURADHA, MG, CDP ####[facility] [place] [address] Lab Director: Samuel Ayers MD Chloride [Moles/Vol] 104 mmol/L Normal 98-107 [facility] Comment on above: Performed By: #### C P, ANURADHA, MG, CDP ####[facility] [place] , [place] [id number] lab Director: Samuel Ayers MD CO2 [Moles/Vol] 25 mmol/L Normal 20-31 [facility] Comment on above: Performed By: #### C P, ANURADHA, MG, CDP ####[address] , [place] [id number] lab Director: Samuel Ayers MD Creatinine [Mass/Vol] 0.7 mg/dL Normal 0.5-0.9 [facility] Comment on above: Performed By: #### C P, ANURADHA, MG, CDP ####[address] , [place] [id number] lab Director: Samuel Ayers MD GFR/1.73 sq M.predicted among non-blacks MDRD (S/P/Bld) [Vol rate/Area] mL/min/{1.73_m2} Normal >60 [facility] Comment on above: Result Comment: Thes e results are not intended for use in patients <18 years of age.eGFR results are calculated without a race factor using the 2020 CKD-EPI equation.Careful clinical correlation is recommended, particularly when comparing to results calculated using previous equations.The CKD-EPI equation is less accurate in patients with extremes of muscle mass, extra-renal metabolism of creatine, excessive creatine ingestion, or following therapy that affects renal tubular secretion. Performed By: #### C P, ANURADHA, MG, CDP ####[facility] [place] [address] lab Director: Samuel Ayers MD Glucose [Mass/Vol] 106 mg/dL High 70-99 [facility] Comment on above: Performed By: #### C P, ANURADHA, MG, CDP ####[address] , [place] [id number] Lab Director: Samuel Ayers MD Potassium [Moles/Vol] 4.1 mmol/L Normal 3.7-5.3 [facility] Comment on above: Performed By: #### C P, ANURADHA, MG, CDP ####[address] , [place] [id number] Lab Director: Samuel Ayers MD Protein [Mass/Vol] 6.5 g/dL Normal 6.4-8.3 [facility] Comment on above: Performed By: #### C P, ANURADHA, MG, CDP ####[address] , [place] [id number] lab Director: Samuel Ayres MD Sodium [Moles/Vol] 137 mmol/L Normal 135-144 [facility] Comment on above: Performed By: #### C P, ANURADHA, MG, CDP ####[address] , [place] [id number] lab Director: Samuel Ayers MD Urea nitrogen [Mass/Vol] 22 mg/dL High 6-20 [facility] Comment on above: Performed By: #### C P, ANURADHA, MG, CDP ####[address] , [place] [id number] lab Director: Samuel Ayers MD Magnesiumon 09-25-2023 Magnesium [Mass/Vol] 2.0 mg/dL Normal 1.6-2.6 [facility] Comment on above: Performed By: #### C P, ANURADHA, MG, CDP ####[address] , [place] [id number] lab Director: Samuel Ayers MD Phosphorus, Inorg.on 023 Phosphorus, Inorg. 3.2 mg/dL Normal 2.6-4.5 [facility] Comment on above: Performed By: #### C P, ANURADHA, MG, CDP ####[address] , [place] [address])[phone] Director: Samuel Ayers MD CBC with Diffon 09-18-2023 Abs. Basophil 0.06 k/uL Normal 0.00-0.20 [facility] Comment on above: Performed By: #### C DP ####[address] , [place] [address])[phone] Director: Samuel Ayers MD Abs.Imm.Granulocyte <0.03 Normal 0.00-0.30 [facility] Comment on above: Performed By: #### C DP ####[address] , [place] [address])[phone] Director: Samuel Ayers MD Abs.Neutrophil (Seg) 3.10 k/uL Normal 1.50-8.10 [facility] Comment on above: Performed By: #### C DP ####[address] , [place] [address])[phone] Director: Samuel Ayers MD Basophils/100 WBC (Bld) 1 % Normal 0-2 [facility] Comment on above: Performed By: #### C DP ####[address] , [place] [address])[phone] Director: Samuel Ayers MD Eosinophils (Bld) [#/Vol] 0.16 10*3/uL Normal 0.00-0.44 [facility] Comment on above: Performed By: #### C DP ####[address] , [place] [address])[phone] Director: Samuel Ayers MD Eosinophils/100 WBC (Bld) 3 % Normal 1-4 [facility] Comment on above: Performed By: #### C DP ####[address] , [place] [address] Lab Director: Samuel Ayers MD Erythrocyte distribution width (RBC) [Ratio] 14.8 % High 11.8-14.4 [facility] Comment on above: Performed By: #### C DP ####[address] , [place] 46[address] Lab Director: Samuel Ayers MD Hematocrit (Bld) [Volume fraction] 33.0 % Low 36.3-47.1 [facility] Comment on above: Performed By: #### C DP ####[address] , [facility]83[facility])[phone] Director: Samuel Ayers MD Hemoglobin (Bld) [Mass/Vol] 10.4 g/dL Low 11.9-15.1 [facility] Comment on above: Performed By: #### C DP ####[address] , [facility]21([facility])[phone] Director: Samuel Ayers MD Immature granulocytes/100 WBC (Bld) 0 % Normal 0 [facility] Comment on above: Performed By: #### C DP ####[address] , [facility]83[facility])[phone] Director: Samuel Ayers MD Lymphocytes (Bld) [#/Vol] 2.15 10*3/uL Normal 1.10-3.70 [facility] Comment on above: Performed By: #### C DP ####[address] , [facility]83 Lab Director: Samuel Ayers MD Lymphocytes/100 WBC (Bld) 35 % Normal 24-43 [facility] Comment on above: Performed By: #### C DP ####[address] , [place] 311[address]83 Lab Director: Samuel Ayers MD MCH (RBC) [Entitic mass] 27.2 pg Normal 25.2-33.5 [facility] Comment on above: Performed By: #### C DP ####[address] , [place] [address] [facility] Director: Samuel Ayers MD MCHC (RBC) [Mass/Vol] 31.5 g/dL Normal 28.4-34.8 [facility] Comment on above: Performed By: #### C DP ####[address] , [place] [address])[phone] Director: Samuel Ayers MD MCV (RBC) [Entitic vol] 86.4 fL Normal 82.6-102.9 [facility] Comment on above: Performed By: #### C DP ####[address] , [place] [address])[phone] Director: Samuel Ayers MD Monocytes (Bld) [#/Vol] 0.67 10*3/uL Normal 0.10-1.20 [facility] Comment on above: Performed By: #### C DP ####[address] , [place] [address])[phone] Director: Samuel Ayers MD Monocytes/100 WBC (Bld) 11 % Normal 3-12 [facility] Comment on above: Performed By: #### C DP ####[address] , [place] [address])[phone] Director: Samuel Ayers MD Neutrophil (Seg) 50 % Normal 36-65 [facility] Comment on above: Performed By: #### C DP ####[address] , [place] [address] Lab Director: Samuel Ayers MD NRBC Automated 0.0 per [address] [facility] Comment on above: Performed By: #### C DP ####[address] , [place] [address] Lab Director: Samuel Ayers MD Platelet mean volume (Bld) [Entitic vol] 10.5 fL Normal 8.1-13.5 [facility] Comment on above: Performed By: #### C DP ####[address] , [place] [address])[phone] Director: Samuel Ayers MD Platelets (Bld) [#/Vol] 321 10*3/uL Normal 138-453 [facility] Comment on above: Performed By: #### C DP ####[address] , [place] [phone] Director: Samuel Ayers MD RBC (Bld) [#/Vol] 3.82 10*6/uL Low 3.95-5.11 [facility] Comment on above: Performed By: #### C DP ####[address] , [place] [address])[phone] Director: Samuel Ayers MD WBC (Bld) [#/Vol] 6.2 10*3/uL Normal 3.5-11.3 [facility] Comment on above: Performed By: #### C DP ####[address] , [facility]83[facility])[phone] Director: Samuel Ayers MD CBC with Diffon 09-11-2023 Abs. Basophil <0.03 Normal 0.00-0.20 [facility] Comment on above: Performed By: #### C DP ####[address] , [facility]83419)[phone] Director: Samuel Ayers MD Abs.Imm.Granulocyte <0.03 Normal 0.00-0.30 [facility] Comment on above: Performed By: #### C DP ####[address] [place] [address] Lab Director: Samuel Ayers MD Abs.Neutrophil (Seg) 2.62 k/uL Normal 1.50-8.10 [facility] Comment on above: Performed By: #### C DP ####[address] , [place] [address] [facility] Director: Samuel Ayers MD Basophils/100 WBC (Bld) 0 % Normal 0-2 [facility] Comment on above: Performed By: #### C DP ####[address] , [place] [address] Lab Director: Samuel Ayers MD Eosinophils (Bld) [#/Vol] 0.16 10*3/uL Normal 0.00-0.44 [facility] Comment on above: Performed By: #### C DP ####[address] , [place] [address] Lab Director: Samuel Ayers MD Eosinophils/100 WBC (Bld) 3 % Normal 1-4 [facility] Comment on above: Performed By: #### C DP ####[address] , [place] [address] Lab Director: Samuel Ayers MD Erythrocyte distribution width (RBC) [Ratio] 14.5 % High 11.8-14.4 [facility] Comment on above: Performed By: #### C DP ####[address] , [place] [address])[phone] Director: Samuel Ayers MD Hematocrit (Bld) [Volume fraction] 31.3 % Low 36.3-47.1 [facility] Comment on above: Performed By: #### C DP ####[address] [place], [place] [address])[phone] Director: Samuel Ayers MD Hemoglobin (Bld) [Mass/Vol] 9.8 g/dL Low 11.9-15.1 [facility] Comment on above: Performed By: #### C DP ####[address] , [place] 4073883 Lab Director: Samuel Ayers MD Immature granulocytes/100 WBC (Bld) 0 % Normal 0 [facility] Comment on above: Performed By: #### C DP ####[address] , [place] [phone] Lab Director: Samuel Ayers MD Lymphocytes (Bld) [#/Vol] 1.93 10*3/uL Normal 1.10-3.70 [facility] Comment on above: Performed By: #### C DP ####[address] , [place] 898[address]83 Lab Director: Samuel Ayers MD Lymphocytes/100 WBC (Bld) 37 % Normal 24-43 [facility] Comment on above: Performed By: #### C DP ####[address] , [facility]83 Lab Director: Samuel Ayers MD MCH (RBC) [Entitic mass] 26.6 pg Normal 25.2-33.5 [facility] Comment on above: Performed By: #### C DP ####[address] , [place] [phone] Lab Director: Samuel Ayers MD MCHC (RBC) [Mass/Vol] 31.3 g/dL Normal 28.4-34.8 [facility] Comment on above: Performed By: #### C DP ####[address] , [place] 3068[address] Lab Director: Samuel Ayers MD MCV (RBC) [Entitic vol] 85.1 fL Normal 82.6-102.9 [facility] Comment on above: Performed By: #### C DP ####[address] , [place] 101[address] Lab Director: Samuel Ayers MD Monocytes (Bld) [#/Vol] 0.48 10*3/uL Normal 0.10-1.20 [facility] Comment on above: Performed By: #### C DP ####[address] , [facility]83 Lab Director: Samuel Ayers MD Monocytes/100 WBC (Bld) 9 % Normal 3-12 [facility] Comment on above: Performed By: #### C DP ####[address] , [place] [address] Lab Director: Samuel Ayers MD Neutrophil (Seg) 51 % Normal 36-65 [facility] Comment on above: Performed By: #### C DP ####[address] , [facility]83 Lab Director: Samuel Ayers MD NRBC Automated 0.0 per [address] [facility] Comment on above: Performed By: #### C DP ####[address] , [facility]83 Lab Director: Samuel Ayers MD Platelet mean volume (Bld) [Entitic vol] 10.5 fL Normal 8.1-13.5 [facility] Comment on above: Performed By: #### C DP ####[address] , [facility]83 Lab Director: Samuel Ayers MD Platelets (Bld) [#/Vol] 273 10*3/uL Normal 138-453 [facility] Comment on above: Performed By: #### C DP ####[address] , [facility]83 Lab Director: Samuel Ayers MD RBC (Bld) [#/Vol] 3.68 10*6/uL Low 3.95-5.11 [facility] Comment on above: Performed By: #### C DP ####[address] [place] [address] [facility] Director: Samuel Ayers MD WBC (Bld) [#/Vol] 5.2 10*3/uL Normal 3.5-11.3 [facility] Comment on above: Performed By: #### C DP ####[facility] [place] , [place] 499[address] [facility] Director: Samuel Ayers MD Manganeseon 09-06-2023 Manganese 8.9 ug/L Normal 4.2-16.5 [facility] Comment on above: Result Comment: (NOT E)TEST INFORMATION: Manganese, BloodElevated results may be due to skin or collection-relatedcontamination, including the use of a noncertified metal-freecollection/transport tube. If contamination concerns exist due toelevated levels of blood manganese, confirmation with a secondspecimen collected in a certified metal-free tube is recommended.This test was developed and its performance characteristicsdetermined by [facility]. It has not been cleared orapproved by the [place] Food and Drug Administration. This test wasperformed in a CLIA certified laboratory and is intended forclinical purposes.Performed By: [facility] [place] [address]Vtsuzdjlaq Director: Kyle Ledesma MD, PhDCLIA Number: [id number] Performed By: #### C P, CDP, MG, ANURADHA ####[facility] [place] , [facility]83 lab Director: Samuel Ayers MD#### AMANG ####[address] [id number] lab Director: Alfonso Perez MD CBC with Diffon 09-04-2023 Abs. Basophil 0.03 k/uL Normal 0.00-0.20 [facility] Comment on above: Performed By: #### C P, CDP, MG, ANURADHA ####[facility] [place] [address] lab Director: Samuel Ayers MD#### AMANG ####[facility] [address] [place] [address] Lab Director: Alfonso Perez MD Abs. Eosinophil <0.03 Normal 0.00-0.44 [facility] Comment on above: Performed By: #### C P, CDP, MG, ANURADHA ####[facility] [place] [id number] [facility] Director: Samuel Ayers MD#### AMANG ####[facility] [address] [place] [address] lab Director: Alfonso Perez MD Abs.Imm.Granulocyte <0.03 Normal 0.00-0.30 [facility] Comment on above: Performed By: #### C P, CDP, MG, ANURADHA ####[address] [place] [address] [facility] Director: Samuel Ayers MD#### AMANG ####[address] [address] lab Director: Alfonso Perez MD Abs.Neutrophil (Seg) 2.32 k/uL Normal 1.50-8.10 [facility] Comment on above: Performed By: #### C P, CDP, MG, ANUARDHA ####[address] [place] [address] [facility] Director: Samuel Ayers MD#### AMANG ####[facility] [address] [place] [address] lab Director: Alfonso Perez MD Basophils/100 WBC (Bld) 1 % Normal 0-2 [facility] Comment on above: Performed By: #### C P, CDP, MG, ANURADHA ####[address] [place] [id number] Lab Director: Samuel Ayers MD#### AMANG ####[facility] [address] [place] [address] Lab Director: Alfonso Perez MD Eosinophils/100 WBC (Bld) 0 % Low 1-4 [facility] Comment on above: Performed By: #### C P, CDP, MG, ANURADHA ####[address] [place], [place] 96[address]83 Lab Director: Samuel Ayers MD#### AMANG ####[facility] [address] [place] [address] Lab Director: Alfonso Perez MD Erythrocyte distribution width (RBC) [Ratio] 14.6 % High 11.8-14.4 [facility] Comment on above: Performed By: #### C P, CDP, MG, ANURADHA ####[address] [place] [address] [facility] Director: Samuel Ayers MD#### AMANG ####[facility] [address] [place] [address] Lab Director: Alfonso Perez MD Hematocrit (Bld) [Volume fraction] 33.5 % Low 36.3-47.1 [facility] Comment on above: Performed By: #### C P, CDP, MG, ANURADHA ####[address] [place] [address] [facility] Director: Samuel Ayers MD#### AMANG ####[facility] [address] [place] [address] Lab Director: Alfonso Perez MD Hemoglobin (Bld) [Mass/Vol] 10.7 g/dL Low 11.9-15.1 [facility] Comment on above: Performed By: #### C P, CDP, MG, ANURADHA ####[address] [place] [address] Lab Director: Samuel Ayers MD#### AMANG ####[facility] [address] [place] [address] Lab Director: Alfonso Perez MD Immature granulocytes/100 WBC (Bld) 0 % Normal 0 [facility] Comment on above: Performed By: #### C P, CDP, MG, ANURADHA ####[facility] [place], [place] 398[address]83 Lab Director: Samuel Ayers MD#### AMANG ####[facility] [address] [place] [address] Lab Director: Alfonso Perez MD Lymphocytes (Bld) [#/Vol] 0.92 10*3/uL Low 1.10-3.70 [facility] Comment on above: Performed By: #### C P, CDP, MG, ANURADHA ####[address] [place] [address] [facility] Director: Samuel Ayers MD#### AMANG ####[facility] [address] [place] [address] Lab Director: Alfonso Perez MD Lymphocytes/100 WBC (Bld) 23 % Low 24-43 [facility] Comment on above: Performed By: #### C P, CDP, MG, ANURADHA ####[address] , [facility]83 [facility] Director: Samuel Ayers MD#### AMANG ####[facility] [address] [place] [address] Lab Director: Alfonso Perez MD MCH (RBC) [Entitic mass] 26.8 pg Normal 25.2-33.5 [facility] Comment on above: Performed By: #### C P, CDP, MG, ANURADHA ####[address] [place] [address]83 Lab Director: Samuel Ayers MD#### AMANG ####[facility] [address] [place] [address] Lab Director: Alfonso Perez MD MCHC (RBC) [Mass/Vol] 31.9 g/dL Normal 28.4-34.8 [facility] Comment on above: Performed By: #### C P, CDP, MG, ANURADHA ####[address] [place], [place] 5052383 Lab Director: Samuel Ayers MD#### AMANG ####[facility] [address] [place] [address] Lab Director: Alfonso Perez MD MCV (RBC) [Entitic vol] 84.0 fL Normal 82.6-102.9 [facility] Comment on above: Performed By: #### C P, CDP, MG, ANURADHA ####[address] [place] [address] [facility] Director: Samuel Ayers MD#### AMANG ####[address] [address] lab Director: Alfonso Perez MD Monocytes (Bld) [#/Vol] 0.66 10*3/uL Normal 0.10-1.20 [facility] Comment on above: Performed By: #### C P, CDP, MG, ANURADHA ####[address] [place] 33[address] [facility] Director: Samuel Ayers MD#### AMANG ####[facility] [address] [place] [address] [id number] Lab Director: Alfonso Perez MD Monocytes/100 WBC (Bld) 17 % High 3-12 [facility] Comment on above: Performed By: #### C P, CDP, MG, ANURADHA ####[address] [place] [address] Lab Director: Samuel Ayers MD#### AMANG ####[facility] [address] [place] [address] Lab Director: Alfonso Perez MD Neutrophil (Seg) 59 % Normal 36-65 [facility] Comment on above: Performed By: #### C P, CDP, MG, ANURADHA ####[facility] [place] , [place] 0410483 Lab Director: Samuel Ayers MD#### AMANG ####[facility] [address] [place] [address] Lab Director: Alfonso Perez MD NRBC Automated 0.0 per [address] [facility] Comment on above: Performed By: #### C P, CDP, MG, ANURADHA ####[address] [place] [address] Lab Director: Samuel Ayers MD#### AMANG ####[facility] [address] [place] [address] Lab Director: Alfonso Perez MD Platelet mean volume (Bld) [Entitic vol] 11.2 fL Normal 8.1-13.5 [facility] Comment on above: Performed By: #### C P, CDP, MG, ANURADHA ####[address] , [place] 8313683 Lab Director: Samuel Ayers MD#### AMANG ####[facility] [address] [place] [address] Lab Director: Alfonso Perez MD Platelets (Bld) [#/Vol] 230 10*3/uL Normal 138-453 [facility] Comment on above: Performed By: #### C P, CDP, MG, ANURADHA ####[address] , [place] 2289283 Lab Director: Samuel Ayers MD#### AMANG ####[facility] [address] [place] [address] Lab Director: Alfonso Perez MD RBC (Bld) [#/Vol] 3.99 10*6/uL Normal 3.95-5.11 [facility] Comment on above: Performed By: #### C P, CDP, MG, ANURADHA ####[address] [place] [address] Lab Director: Samuel Ayers MD#### AMANG ####[facility] [address] [place] [address] Lab Director: Alfonso Perez MD WBC (Bld) [#/Vol] 4.0 10*3/uL Normal 3.5-11.3 [facility] Comment on above: Performed By: #### C P, CDP, MG, ANURADHA ####[address] [place] [address] [facility] Director: Samuel Ayers MD#### AMANG ####[facility] [address] [place] [address] [id number] Lab Director: Alfonso Perez MD Comp Metabolic Profon 2022 Albumin [Mass/Vol] 3.9 g/dL Normal 3.5-5.2 [facility] Comment on above: Performed By: #### C P, CDP, MG, ANURADHA ####[address] [place] [address] lab Director: Samuel Ayers MD#### AMANG ####[facility] [address] [place] [address] [id number] lab Director: Alfonso Perez MD Albumin/Glob Ratio 1.1 Normal 1.0-2.5 [facility] Comment on above: Performed By: #### C P, CDP, MG, ANURADHA ####[address] [place] [address] [facility] Director: Samuel Ayers MD#### AMANG ####[facility] [address] [place] [address] [id number] lab Director: Alfonso Perez MD Alkaline Phos 154 U/L High 35-104 [facility] Comment on above: Performed By: #### C P, CDP, MG, ANURADHA ####[address] [place] [address] Lab Director: Samuel Ayers MD#### AMANG ####[facility] [address] [place] [address] [id number] lab Director: Alfonso Perez MD ALT [Catalytic activity/Vol] 16 U/L Normal 5-33 [facility] Comment on above: Performed By: #### C P, CDP, MG, ANURADHA ####[address] [place], [place] 2783283 [facility] Director: Samuel Ayers MD#### AMANG ####[facility] [address] [place] [address] [id number] lab Director: Alfonso Perez MD Anion gap [Moles/Vol] 12 mmol/L Normal 9-17 [facility] Comment on above: Performed By: #### C P, CDP, MG, ANURADHA ####[address] , [place] 3681883 lab Director: Samuel Ayers MD#### AMANG ####[facility] [address] [place] [address] lab Director: Alfonso Perez MD AST [Catalytic activity/Vol] 23 U/L Normal <32 [facility] Comment on above: Performed By: #### C P, CDP, MG, ANURADHA ####[address] [place] [address] Lab Director: Samuel Ayers MD#### AMANG ####[facility] [address] [place], [place] 69[address] Lab Director: Alfonso Perez MD Bilirubin [Mass/Vol] 0.8 mg/dL Normal 0.3-1.2 [facility] Comment on above: Performed By: #### C P, CDP, MG, ANURADHA ####[facility] [place] , [place] 1144183 Lab Director: Samuel Ayers MD#### AMANG ####[facility] [address] [place] [address] [id number] lab Director: Alfonso Perez MD BUN/CRE Ratio 19 Normal 9-20 [facility] Comment on above: Performed By: #### C P, CDP, MG, ANURADHA ####[address] [place] [address] [facility] Director: Samuel Ayers MD#### AMANG ####[facility] [address] [place] [address] [id number] lab Director: Alfonso Perez MD Calcium [Mass/Vol] 9.1 mg/dL Normal 8.6-10.4 [facility] Comment on above: Performed By: #### C P, CDP, MG, ANURADHA ####[address] , [place] 9828483 Lab Director: Samuel Ayers MD#### AMANG ####[facility] [address] [place] [address] [id number] lab Director: Alfonso Perez MD Chloride [Moles/Vol] 99 mmol/L Normal 98-107 [facility] Comment on above: Performed By: #### C P, CDP, MG, ANURADHA ####[facility] [place] [address] lab Director: Samuel Ayers MD#### AMANG ####[facility] [address] [place] [address] Lab Director: Alfonso Perez MD CO2 [Moles/Vol] 26 mmol/L Normal 20-31 [facility] Comment on above: Performed By: #### C P, CDP, MG, ANURADHA ####[facility] [place] , [place] 5914983 Lab Director: Samuel Ayers MD#### AMANG ####[facility] [address] [place] [address] Lab Director: Alfonso Perez MD Creatinine [Mass/Vol] 0.9 mg/dL Normal 0.5-0.9 [facility] Comment on above: Performed By: #### C P, CDP, MG, ANURADHA ####[address] [place] [address] Lab Director: Samuel Ayers MD#### AMANG ####[facility] [address] [place] [address] lab Director: Alfonso Perez MD GFR/1.73 sq M.predicted among non-blacks MDRD (S/P/Bld) [Vol rate/Area] mL/min/{1.73_m2} Normal >60 [facility] Comment on above: Result Comment: Thes e results are not intended for use in patients <18 years of age.eGFR results are calculated without a race factor using the 2020 CKD-EPI equation.Careful clinical correlation is recommended, particularly when comparing to results calculated using previous equations.The CKD-EPI equation is less accurate in patients with extremes of muscle mass, extra-renal metabolism of creatine, excessive creatine ingestion, or following therapy that affects renal tubular secretion. Performed By: #### C P, CDP, MG, ANURADHA ####[address] , [place] 3707683 Lab Director: Samuel Ayers MD#### AMANG ####[facility] [address] [place], [place] [id number] Lab Director: Alfonso Perez MD Glucose [Mass/Vol] 117 mg/dL High 70-99 [facility] Comment on above: Performed By: #### C P, CDP, MG, ANURADHA ####[address] [place] 33[address]83 Lab Director: Samuel Ayers MD#### AMANG ####[facility] [address] [place] [address] Lab Director: Alfonso Perez MD Potassium [Moles/Vol] 4.1 mmol/L Normal 3.7-5.3 [facility] Comment on above: Performed By: #### C P, CDP, MG, ANURADHA ####[address] [place] [address] Lab Director: Samuel Ayers MD#### AMANG ####[address] [address] Lab Director: Alfonso Perez MD Protein [Mass/Vol] 7.4 g/dL Normal 6.4-8.3 [facility] Comment on above: Performed By: #### C P, CDP, MG, ANURADHA ####[address] , [facility]83 Lab Director: Samuel Ayers MD#### AMANG ####[address] [address] Lab Director: Alfonso Perez MD Sodium [Moles/Vol] 137 mmol/L Normal 135-144 [facility] Comment on above: Performed By: #### C P, CDP, MG, ANURADHA ####[address] [place] 33[address]83 Lab Director: Samuel Ayers MD#### AMANG ####[facility] [address] [place] [address] Lab Director: Alfonso Perez MD Urea nitrogen [Mass/Vol] 17 mg/dL Normal 6-20 [facility] Comment on above: Performed By: #### C P, CDP, MG, ANURADHA ####[address] , [place] 779[address]83 lab Director: Samuel Ayers MD#### AMANG ####[address] [place] [address] [phone] lab Director: Alfonso Perez MD Magnesiumon 09-04-2023 Magnesium [Mass/Vol] 1.9 mg/dL Normal 1.6-2.6 [facility] Comment on above: Performed By: #### C P, CDP, MG, ANURADHA ####[address] , [facility]83 lab Director: Samuel Ayers MD#### AMANG ####[address] [address] lab Director: Alfonso Perez MD Phosphorus, Inorg.on 023 Phosphorus, Inorg. 2.6 mg/dL Normal 2.6-4.5 [facility] Comment on above: Performed By: #### C P, CDP, MG, ANURADHA ####[address] , [facility]83 lab Director: Samuel Ayers MD#### AMANG ####[address] [address] lab Director: Alfonso Perez MD CBC with Diffon 08-28-2023 Abs. Basophil 0.05 k/uL Normal 0.00-0.20 [facility] Comment on above: Performed By: #### C DP ####[address] , [place] [id number] lab Director: Samuel Ayers MD Abs.Imm.Granulocyte <0.03 Normal 0.00-0.30 [facility] Comment on above: Performed By: #### C DP ####[address] , [place] [address])[phone] Director: Samuel Ayers MD Abs.Neutrophil (Seg) 3.05 k/uL Normal 1.50-8.10 [facility] Comment on above: Performed By: #### C DP ####[address] , [place] [address])[phone] Director: Samuel Ayers MD Basophils/100 WBC (Bld) 1 % Normal 0-2 [facility] Comment on above: Performed By: #### C DP ####[address] , [place] [address])[phone] Director: Samuel Ayers MD Eosinophils (Bld) [#/Vol] 0.14 10*3/uL Normal 0.00-0.44 [facility] Comment on above: Performed By: #### C DP ####[address] , [place] [address])[phone] Director: Samuel Ayers MD Eosinophils/100 WBC (Bld) 2 % Normal 1-4 [facility] Comment on above: Performed By: #### C DP ####[address] , [place] [address])[phone] Director: Samuel Ayers MD Erythrocyte distribution width (RBC) [Ratio] 14.8 % High 11.8-14.4 [facility] Comment on above: Performed By: #### C DP ####[address] , [place] [address])[phone] Director: Samuel Ayers MD Hematocrit (Bld) [Volume fraction] 34.1 % Low 36.3-47.1 [facility] Comment on above: Performed By: #### C DP ####[address] , [place] [address] Lab Director: Samuel Ayers MD Hemoglobin (Bld) [Mass/Vol] 10.6 g/dL Low 11.9-15.1 [facility] Comment on above: Performed By: #### C DP ####[address] , [place] [id number] Lab Director: Samuel Ayers MD Immature granulocytes/100 WBC (Bld) 0 % Normal 0 [facility] Comment on above: Performed By: #### C DP ####[address] [place] [address] Lab Director: Samuel Ayers MD Lymphocytes (Bld) [#/Vol] 2.07 10*3/uL Normal 1.10-3.70 [facility] Comment on above: Performed By: #### C DP ####[address] , [facility]83[facility])[phone] Director: Samuel Ayers MD Lymphocytes/100 WBC (Bld) 35 % Normal 24-43 [facility] Comment on above: Performed By: #### C DP ####[address] , [place] [phone] Lab Director: Samuel Ayers MD MCH (RBC) [Entitic mass] 26.6 pg Normal 25.2-33.5 [facility] Comment on above: Performed By: #### C DP ####[address] , [facility]83[facility])[phone] Director: Samuel Ayers MD MCHC (RBC) [Mass/Vol] 31.1 g/dL Normal 28.4-34.8 [facility] Comment on above: Performed By: #### C DP ####[address] , [place] 4615583 Lab Director: Samuel Ayers MD MCV (RBC) [Entitic vol] 85.5 fL Normal 82.6-102.9 [facility] Comment on above: Performed By: #### C DP ####[address] [place] [address] Lab Director: Samuel Ayers MD Monocytes (Bld) [#/Vol] 0.61 10*3/uL Normal 0.10-1.20 [facility] Comment on above: Performed By: #### C DP ####[address] , [place] [phone] Director: Samuel Ayers MD Monocytes/100 WBC (Bld) 10 % Normal 3-12 [facility] Comment on above: Performed By: #### C DP ####[address] , [place] [phone] Director: Samuel Ayers MD Neutrophil (Seg) 52 % Normal 36-65 [facility] Comment on above: Performed By: #### C DP ####[address] [place] [address] Lab Director: Samuel Ayers MD NRBC Automated 0.0 per [address] [facility] Comment on above: Performed By: #### C DP ####[address] , [place] [phone] Director: Samuel Ayers MD Platelet mean volume (Bld) [Entitic vol] 10.1 fL Normal 8.1-13.5 [facility] Comment on above: Performed By: #### C DP ####[address] , [place] [phone] Director: Samuel Ayers MD Platelets (Bld) [#/Vol] 286 10*3/uL Normal 138-453 [facility] Comment on above: Performed By: #### C DP ####[address] , [place] 5976283 Lab Director: Samuel Ayers MD RBC (Bld) [#/Vol] 3.99 10*6/uL Normal 3.95-5.11 [facility] Comment on above: Performed By: #### C DP ####[facility] [place], [place] 704[address]83 Lab Director: Saumel Ayers MD WBC (Bld) [#/Vol] 5.9 10*3/uL Normal 3.5-11.3 [facility] Comment on above: Performed By: #### C DP ####[address] , [place] 8839883 Lab Director: Samuel Ayers MD Vitamin Aon 08-24-2023 Interpretation Normal Normal [facility] Comment on above: Result Comment: (NOT E)This test was developed and its performance characteristicsdetermined by [employer]. It has not been cleared orapproved by the [place] Food and Drug Administration. This test wasperformed in a CLIA certified laboratory and is intended forclinical purposes.Performed By: [employer] [place] [address] 19[address]Mumxitwhuz Director: Kyle Ledesma MD, PhDCLIA Number: [id number] Performed By: #### C DP, MG, CP, ANURADHA ####[address] , [place] [id number] Lab Director: Samuel Ayers MD#### YOANA ARRIETA ####[address] [address] Lab Director: Alfonso Perez MD Retinol (Vitamin A) 0.53 mg/L Normal 0.30-1.20 [facility] Comment on above: Performed By: #### C DP, MG, CP, ANURADHA ####[address] [place] [address] lab Director: Samuel Ayers MD#### YOANA ARRIETA ####[address] [address] Lab Director: Alfonso Perez MD Retinyl Palmitate <0.02 Normal 0.00-0.10 [facility] Comment on above: Performed By: #### C DP, MG, CP, ANURADHA ####[facility] [place], [place] 1078483 lab Director: Samuel Ayers MD#### YOANA ARRIETA ####[address] [address] lab Director: Alfonso Perez MD Vitamin Mumtaz 08-24-2023 Alpha-Tocopherol 12.0 mg/L Normal 5.5-18.0 [facility] Comment on above: Result Comment: (NOT E)This test was developed and its performance characteristicsdetermined by [employer]. It has not been cleared orapproved by the [place] Food and Drug Administration. This test wasperformed in a CLIA certified laboratory and is intended forclinical purposes. Performed By: #### C DP, MG, CP, ANURADHA ####[address] [place] [address] lab Director: Samuel Ayers MD#### YOANA ARRIETA ####[address] [address] lab Director: Alfonso Perez MD Gamma-Tocopherol 0.6 mg/L Normal 0.0-6.0 [facility] Comment on above: Result Comment: (NOT E)Performed By: [facility] [address] [place] [address] 80[address]Sfxkqrgexb Director: Kyle Ledesma MD, PhDCLIA Number: [id number] Performed By: #### C DP, MG, CP, ANURADHA ####[facility] [place] [address] lab Director: Samuel Ayers MD#### YOANA ARRIETA ####[address] [place] [address] Lab Director: Alfonso Perez MD CBC with Diffon 08-21-2023 Abs. Basophil 0.04 k/uL Normal 0.00-0.20 [facility] Comment on above: Performed By: #### C DP, MG, CP, ANURADHA ####[address] [place], [place] 3036083 lab Director: Samuel Ayers MD#### YOANA ARRIETA ####[facility] [address] [place] [address] lab Director: Alfonso Perez MD Abs.Imm.Granulocyte <0.03 Normal 0.00-0.30 [facility] Comment on above: Performed By: #### C DP, MG, CP, ANURADHA ####[address] [place] [phone] [facility] Director: Samuel Ayers MD#### YOANA ARRIETA ####[address] [phone] lab Director: Alfonso Perez MD Abs.Neutrophil (Seg) 2.66 k/uL Normal 1.50-8.10 [facility] Comment on above: Performed By: #### C DP, MG, CP, ANURADHA ####[address] [place] [phone] [facility] Director: Samuel Ayers MD#### YOANA ARRIETA ####[facility] [address] [place] [address] lab Director: Alfonso Perez MD Basophils/100 WBC (Bld) 1 % Normal 0-2 [facility] Comment on above: Performed By: #### C DP, MG, CP, ANURADHA ####[address] [place] [address] lab Director: Samuel Ayers MD#### YOANA ARRIETA ####[facility] [address] [place] [address] Lab Director: Alfonso Perez MD Eosinophils (Bld) [#/Vol] 0.13 10*3/uL Normal 0.00-0.44 [facility] Comment on above: Performed By: #### C DP, MG, CP, ANURADHA ####[address] [place], [place] 57[address]83 Lab Director: Samuel Ayers MD#### YOANA ARRIETA ####[facility] [address] [place] [address] [phone] Lab Director: Alfonso Perez MD Eosinophils/100 WBC (Bld) 2 % Normal 1-4 [facility] Comment on above: Performed By: #### C DP, MG, CP, ANURADHA ####[address] [place], [place] 4418283 Lab Director: Samuel Ayers MD#### YOANA ARRIETA ####[facility] [address] [place] [address] [phone] Lab Director: Alfonso Perez MD Erythrocyte distribution width (RBC) [Ratio] 14.6 % High 11.8-14.4 [facility] Comment on above: Performed By: #### C DP, MG, CP, ANURADHA ####[address] [place], [place] 2745883 Lab Director: Samuel Ayers MD#### YOANA ARRIETA ####[facility] [address] [place] [address] [phone] Lab Director: Alfonso Perez MD Hematocrit (Bld) [Volume fraction] 30.6 % Low 36.3-47.1 [facility] Comment on above: Performed By: #### C DP, MG, CP, ANURADHA ####[address] , [place] 5538683 Lab Director: Samuel Ayers MD#### YOANA ARRIETA ####[facility] [address] [place], [place] [phone] Lab Director: Alfonso Perez MD Hemoglobin (Bld) [Mass/Vol] 9.5 g/dL Low 11.9-15.1 [facility] Comment on above: Performed By: #### C DP, MG, CP, ANURADHA ####[address] [place] [address] Lab Director: Samuel Ayers MD#### YOANA ARRIETA ####[facility] [address] [place] [address] [phone] Lab Director: Alfonso Perez MD Immature granulocytes/100 WBC (Bld) 0 % Normal 0 [facility] Comment on above: Performed By: #### C DP, MG, CP, ANURADHA ####[address] , [place] 2997883 Lab Director: Samuel Ayers MD#### YOANA ARRIETA ####[facility] [address] [place] [address] [id number] Lab Director: Alfonso Perez MD Lymphocytes (Bld) [#/Vol] 1.85 10*3/uL Normal 1.10-3.70 [facility] Comment on above: Performed By: #### C DP, MG, CP, ANURADHA ####[address] [place] [address] Lab Director: Samuel Ayers MD#### YOANA ARRIETA ####[facility] [address] [place] [address] [phone] Lab Director: Alfonso Perez MD Lymphocytes/100 WBC (Bld) 35 % Normal 24-43 [facility] Comment on above: Performed By: #### C DP, MG, CP, ANURADHA ####[address] , [place] 6989583 Lab Director: Samuel Ayers MD#### YOANA ARRIETA ####[facility] [address] [place] [address] Lab Director: Alfonso Perez MD MCH (RBC) [Entitic mass] 26.7 pg Normal 25.2-33.5 [facility] Comment on above: Performed By: #### C DP, MG, CP, ANURADHA ####[address] [place] [address] Lab Director: Samuel Ayers MD#### YOANA ARRIETA ####[facility] [address] [place] [address] [phone] lab Director: Alfonso Perez MD MCHC (RBC) [Mass/Vol] 31.0 g/dL Normal 28.4-34.8 [facility] Comment on above: Performed By: #### C DP, MG, CP, ANURADHA ####[address] [place] [address] Lab Director: Samuel Ayers MD#### YOANA ARRIETA ####[facility] [address] [place] [address] Lab Director: Alfonso Perez MD MCV (RBC) [Entitic vol] 86.0 fL Normal 82.6-102.9 [facility] Comment on above: Performed By: #### C DP, MG, CP, ANURADHA ####[address] [place] [address] Lab Director: Samuel Ayers MD#### YOANA ARRIETA ####[facility] [address] [place] [address] [phone] Lab Director: Alfonso Perez MD Monocytes (Bld) [#/Vol] 0.68 10*3/uL Normal 0.10-1.20 [facility] Comment on above: Performed By: #### C DP, MG, CP, ANURADHA ####[facility] [place], [place] 9488683 Lab Director: Samuel Ayers MD#### YOANA ARRIETA ####[facility] [address] [place] [address] Lab Director: Alfonso Perez MD Monocytes/100 WBC (Bld) 13 % High 3-12 [facility] Comment on above: Performed By: #### C DP, MG, CP, ANURADHA ####[address] [place] [address] Lab Director: Samuel Ayers MD#### YOANA ARRIETA ####[facility] [address] [place] [address] [phone] Lab Director: Alfonso Perez MD Neutrophil (Seg) 49 % Normal 36-65 [facility] Comment on above: Performed By: #### C DP, MG, CP, ANURADHA ####[address] [place] [address] Lab Director: Samuel Ayers MD#### YOANA ARRIETA ####[facility] [address] [place] [address] Lab Director: Alfonso Perez MD NRBC Automated 0.0 per [address] [facility] Comment on above: Performed By: #### C DP, MG, CP, ANURADHA ####[facility] [place] , [place] 7670783 Lab Director: Samuel Ayers MD#### YOANA ARRIETA ####[facility] [address] [place] [address] Lab Director: Alfonso Perez MD Platelet mean volume (Bld) [Entitic vol] 11.0 fL Normal 8.1-13.5 [facility] Comment on above: Performed By: #### C DP, MG, CP, ANURADHA ####[facility] [place] [address] Lab Director: Samuel Ayers MD#### YOANA ARRIETA ####[facility] [address] [place] [address] Lab Director: Alfonso Perez MD Platelets (Bld) [#/Vol] 244 10*3/uL Normal 138-453 [facility] Comment on above: Performed By: #### C DP, MG, CP, ANURADHA ####[address] , [place] [address] Lab Director: Samuel Ayers MD#### YOANA ARRIETA ####[address] [address] Lab Director: Alfonso Perez MD RBC (Bld) [#/Vol] 3.56 10*6/uL Low 3.95-5.11 [facility] Comment on above: Performed By: #### C DP, MG, CP, ANURADHA ####[address] [place] [address] Lab Director: Samuel Ayers MD#### YOANA ARRIETA ####[facility] [address] [place] [address] Lab Director: Alfonso Perez MD WBC (Bld) [#/Vol] 5.4 10*3/uL Normal 3.5-11.3 [facility] Comment on above: Performed By: #### C DP, MG, CP, ANURADHA ####[address] , [place] 8438083 Lab Director: Samuel Ayers MD#### YOANA ARRIETA ####[facility] [address] [place] [address] Lab Director: Alfonso Perez MD Comp Metabolic Profon 2022 Albumin [Mass/Vol] 3.6 g/dL Normal 3.5-5.2 [facility] Comment on above: Performed By: #### C DP, MG, CP, ANURADHA ####[address] , [place] 0957783 Lab Director: Samuel Ayers MD#### YOANA ARRIETA ####[facility] [address] [place] [address] [phone] lab Director: Alfonso Perez MD Albumin/Glob Ratio 1.2 Normal 1.0-2.5 [facility] Comment on above: Performed By: #### C DP, MG, CP, ANURADHA ####[address] , [place] 2651383 Lab Director: Samuel Ayers MD#### YOANA ARRIETA ####[facility] [address] [place] [address] [id number] Lab Director: Alfonso Perez MD Alkaline Phos 113 U/L High 35-104 [facility] Comment on above: Performed By: #### C DP, MG, CP, ANURADHA ####[address] , [place] 1580283 Lab Director: Samuel Ayers MD#### YOANA ARRIETA ####[facility] [address] [place] [address] [phone] Lab Director: Alfonso Perez MD ALT [Catalytic activity/Vol] 11 U/L Normal 5-33 [facility] Comment on above: Performed By: #### C DP, MG, CP, ANURADHA ####[address] [place], [place] 2750283 lab Director: Samuel Ayers MD#### YOANA ARRIETA ####[facility] [address] [place] [address] lab Director: Alfonso Perez MD Anion gap [Moles/Vol] 8 mmol/L Low 9-17 [facility] Comment on above: Performed By: #### C DP, MG, CP, ANURADHA ####[address] [place], [place] 6066983 Lab Director: Samuel Ayers MD#### YOANA ARRIETA ####[facility] [address] [place] [address] lab Director: Alfonso Perez MD AST [Catalytic activity/Vol] 17 U/L Normal <32 [facility] Comment on above: Performed By: #### C DP, MG, CP, ANURADHA ####[address] [place], [place] 9115883 Lab Director: Samuel Ayers MD#### YOANA ARRIETA ####[address] [address] lab Director: Alfonso Perez MD Bilirubin [Mass/Vol] 0.6 mg/dL Normal 0.3-1.2 [facility] Comment on above: Performed By: #### C DP, MG, CP, ANURADHA ####[address] , [place] 7304283 Lab Director: Samuel Ayers MD#### YOANA ARRIETA ####[facility] [address] [place] [address] lab Director: Alfonso Perez MD BUN/CRE Ratio 30 High 9-20 [facility] Comment on above: Performed By: #### C DP, MG, CP, ANURADHA ####[address] [place] [address] Lab Director: Samuel Ayers MD#### YOANA ARRIETA ####[facility] [address] [place] [address] [phone] Lab Director: Alfonso Perez MD Calcium [Mass/Vol] 8.7 mg/dL Normal 8.6-10.4 [facility] Comment on above: Performed By: #### C DP, MG, CP, ANURADHA ####[facility] [place] [address] Lab Director: Samuel Ayers MD#### YOANA ARRIETA ####[address] [phone] lab Director: Alfonso Perez MD Chloride [Moles/Vol] 104 mmol/L Normal 98-107 [facility] Comment on above: Performed By: #### C DP, MG, CP, ANURADHA ####[address] [place] [address] Lab Director: Samuel Ayers MD#### YOANA ARRIETA ####[address] [phone] Lab Director: Alfonso Perez MD CO2 [Moles/Vol] 29 mmol/L Normal 20-31 [facility] Comment on above: Performed By: #### C DP, MG, CP, ANURADHA ####[facility] [place] [address] Lab Director: Samuel Ayers MD#### YOANA ARRIETA ####AR [address] [place] [address] [id number] Lab Director: Alfonso Perez MD Creatinine [Mass/Vol] 0.8 mg/dL Normal 0.5-0.9 [facility] Comment on above: Performed By: #### C DP, MG, CP, ANURADHA ####[facility] [place] [address] Lab Director: Samuel Ayers MD#### YOANA ARRIETA ####[facility] [address] [place] [address] [id number] Lab Director: Alfonso Perez MD GFR/1.73 sq M.predicted among non-blacks MDRD (S/P/Bld) [Vol rate/Area] mL/min/{1.73_m2} Normal >60 [facility] Comment on above: Result Comment: Thes e results are not intended for use in patients <18 years of age.eGFR results are calculated without a race factor using the 2020 CKD-EPI equation.Careful clinical correlation is recommended, particularly when comparing to results calculated using previous equations.The CKD-EPI equation is less accurate in patients with extremes of muscle mass, extra-renal metabolism of creatine, excessive creatine ingestion, or following therapy that affects renal tubular secretion. Performed By: #### C DP, MG, CP, ANURADHA ####[facility] [place] [address] Lab Director: Samuel Ayers MD#### YOANA ARRIETA ####[facility] [address] [phone] Lab Director: Alfonso Perez MD Glucose [Mass/Vol] 112 mg/dL High 70-99 [facility] Comment on above: Performed By: #### C DP, MG, CP, ANURADHA ####[facility] [place] [address] Lab Director: Samuel Ayers MD#### YOANA ARRIETA ####[facility] [address] [place] [address] [id number] Lab Director: Alfonso Perez MD Potassium [Moles/Vol] 4.3 mmol/L Normal 3.7-5.3 [facility] Comment on above: Performed By: #### C DP, MG, CP, ANURADHA ####[facility] [place] [address] Lab Director: Samuel Ayers MD#### YOANA ARRIETA ####[facility] [address] [place] [address] Lab Director: Alfonso Perez MD Protein [Mass/Vol] 6.6 g/dL Normal 6.4-8.3 [facility] Comment on above: Performed By: #### C DP, MG, CP, ANURADHA ####[facility] [place] [address] Lab Director: Samuel Ayers MD#### YOANA ARRIETA ####[facility] [address] [place] [address] [phone] lab Director: Alfonso Perez MD Sodium [Moles/Vol] 141 mmol/L Normal 135-144 [facility] Comment on above: Performed By: #### C DP, MG, CP, ANURADHA ####[facility] [place] [address] Lab Director: Samuel Ayers MD#### YOANA ARRIETA ####[facility] [address] [place] [address] [id number] Lab Director: Alfonso ePrez MD Urea nitrogen [Mass/Vol] 24 mg/dL High 6-20 [facility] Comment on above: Performed By: #### C DP, MG, CP, ANURADHA ####[facility] [place] [address] Lab Director: Samuel Ayers MD#### YOANA ARRIETA ####[facility] [address] [place] [address] Lab Director: Alfonso Perez MD Magnesiumon 08-21-2023 Magnesium [Mass/Vol] 2.3 mg/dL Normal 1.6-2.6 [facility] Comment on above: Performed By: #### C DP, MG, CP, ANURADHA ####[address] , [place] 6629383 Lab Director: Samuel Ayers MD#### YOANA ARRIETA ####[facility] [address] [place], [place] [phone] lab Director: Alfonso ePrez MD Phosphorus, Inorg.on 023 Phosphorus, Inorg. 3.4 mg/dL Normal 2.6-4.5 [facility] Comment on above: Performed By: #### C DP, MG, CP, ANURADHA ####[address] , [place] 3415883 Lab Director: Samuel Ayers MD#### YOANA ARRIETA ####[facility] [address] [place] [address] [id number] lab Director: Alfonso Perez MD CBC with Diffon 08-14-2023 Abs. Basophil 0.06 k/uL Normal 0.00-0.20 [facility] Comment on above: Performed By: #### C DP ####[address] , [place] 1850683 Lab Director: Samuel Ayers MD Abs.Imm.Granulocyte <0.03 Normal 0.00-0.30 [facility] Comment on above: Performed By: #### C DP ####[address] , [place] 4447583 Lab Director: Samuel Ayers MD Abs.Neutrophil (Seg) 4.33 k/uL Normal 1.50-8.10 [facility] Comment on above: Performed By: #### C DP ####[address] , [place] 9373483 Lab Director: Samuel Ayers MD Basophils/100 WBC (Bld) 1 % Normal 0-2 [facility] Comment on above: Performed By: #### C DP ####[address] , [place] 4264283 Lab Director: Samuel Ayers MD Eosinophils (Bld) [#/Vol] 0.17 10*3/uL Normal 0.00-0.44 [facility] Comment on above: Performed By: #### C DP ####[address] , [facility]83 Lab Director: Samuel Ayers MD Eosinophils/100 WBC (Bld) 2 % Normal 1-4 [facility] Comment on above: Performed By: #### C DP ####[address] , [facility]83 Lab Director: Samuel Ayers MD Erythrocyte distribution width (RBC) [Ratio] 15.2 % High 11.8-14.4 [facility] Comment on above: Performed By: #### C DP ####[address] , [facility]83 Lab Director: Samuel Ayers MD Hematocrit (Bld) [Volume fraction] 32.5 % Low 36.3-47.1 [facility] Comment on above: Performed By: #### C DP ####[address] , [facility]83 Lab Director: Samuel Ayers MD Hemoglobin (Bld) [Mass/Vol] 10.2 g/dL Low 11.9-15.1 [facility] Comment on above: Performed By: #### C DP ####[address] , [facility]83 Lab Director: Samuel Ayers MD Immature granulocytes/100 WBC (Bld) 0 % Normal 0 [facility] Comment on above: Performed By: #### C DP ####[address] , [place] 7776083 Lab Director: Samuel Ayers MD Lymphocytes (Bld) [#/Vol] 2.46 10*3/uL Normal 1.10-3.70 [facility] [facility] Comment on above: Performed By: #### C DP ####[address] [place] [address] Lab Director: Samuel Ayers MD Lymphocytes/100 WBC (Bld) 32 % Normal 24-43 [facility] Comment on above: Performed By: #### C DP ####[address] , [place] [phone] Director: Samuel Ayers MD MCH (RBC) [Entitic mass] 26.6 pg Normal 25.2-33.5 [facility] Comment on above: Performed By: #### C DP ####[address] , [place] [address])[phone] Director: Samuel Ayers MD MCHC (RBC) [Mass/Vol] 31.4 g/dL Normal 28.4-34.8 [facility] Comment on above: Performed By: #### C DP ####[address] , [place] [id number])[phone] Director: Samuel Ayers MD MCV (RBC) [Entitic vol] 84.9 fL Normal 82.6-102.9 [facility] Comment on above: Performed By: #### C DP ####[address] , [place] 96393419)[phone] Director: Samuel Ayers MD Monocytes (Bld) [#/Vol] 0.73 10*3/uL Normal 0.10-1.20 [facility] Comment on above: Performed By: #### C DP ####[address] , [place] 843[address]83 Lab Director: Samuel Ayers MD Monocytes/100 WBC (Bld) 9 % Normal 3-12 [facility] Comment on above: Performed By: #### C DP ####[address] , [place] 1128183 Lab Director: Samuel Ayers MD Neutrophil (Seg) 56 % Normal 36-65 [facility] Comment on above: Performed By: #### C DP ####[address] , [place] 685[address]83 Lab Director: Samuel Ayers MD NRBC Automated 0.0 per [address] [facility] Comment on above: Performed By: #### C DP ####[address] , [place] 7213983 Lab Director: Samuel Ayers MD Platelet mean volume (Bld) [Entitic vol] 10.6 fL Normal 8.1-13.5 [facility] Comment on above: Performed By: #### C DP ####[address] , [place] 2104183 Lab Director: Samuel Ayers MD Platelets (Bld) [#/Vol] 255 10*3/uL Normal 138-453 [facility] Comment on above: Performed By: #### C DP ####[address] , [place] 1101383 Lab Director: Samuel Ayers MD RBC (Bld) [#/Vol] 3.83 10*6/uL Low 3.95-5.11 [facility] Comment on above: Performed By: #### C DP ####[address] [place] [address] Lab Director: Samuel Ayers MD WBC (Bld) [#/Vol] 7.8 10*3/uL Normal 3.5-11.3 [facility] Comment on above: Performed By: #### C DP ####[address] , [place] [address])[phone] Director: Samuel Ayers MD CBC with Diffon 08-07-2023 Abs. Basophil 0.04 k/uL Normal 0.00-0.20 [facility] Comment on above: Performed By: #### C DP ####[address] , [place] [address])[phone] Director: Samuel Ayers MD Abs.Imm.Granulocyte <0.03 Normal 0.00-0.30 [facility] Comment on above: Performed By: #### C DP ####[address] , [place] [address])[phone] Director: Samuel Ayers MD Abs.Neutrophil (Seg) 3.23 k/uL Normal 1.50-8.10 [facility] Comment on above: Performed By: #### C DP ####[address] , [place] [address])[phone] Director: Samuel Ayers MD Basophils/100 WBC (Bld) 1 % Normal 0-2 [facility] Comment on above: Performed By: #### C DP ####[address] , [place] [address])[phone] Director: Samuel Ayers MD Eosinophils (Bld) [#/Vol] 0.12 10*3/uL Normal 0.00-0.44 [facility] Comment on above: Performed By: #### C DP ####[address] , [place] [address])[phone] Director: Samuel Ayers MD Eosinophils/100 WBC (Bld) 2 % Normal 1-4 [facility] Comment on above: Performed By: #### C DP ####[address] , [facility]83[facility])[phone] Director: Samuel Ayers MD Erythrocyte distribution width (RBC) [Ratio] 14.7 % High 11.8-14.4 [facility] Comment on above: Performed By: #### C DP ####[address] , [place] 1840283 Lab Director: Samuel Ayers MD Hematocrit (Bld) [Volume fraction] 32.4 % Low 36.3-47.1 [facility] Comment on above: Performed By: #### C DP ####[address] , [place] 6114683 Lab Director: Samuel Ayers MD Hemoglobin (Bld) [Mass/Vol] 10.2 g/dL Low 11.9-15.1 [facility] Comment on above: Performed By: #### C DP ####[address] , [place] 3054783 Lab Director: Samuel Ayers MD Immature granulocytes/100 WBC (Bld) 0 % Normal 0 [facility] Comment on above: Performed By: #### C DP ####[address] , [place] 7363183 Lab Director: Samuel Ayers MD Lymphocytes (Bld) [#/Vol] 2.42 10*3/uL Normal 1.10-3.70 [facility] Comment on above: Performed By: #### C DP ####[address] , [place] 1582683 Lab Director: Samuel Ayers MD Lymphocytes/100 WBC (Bld) 38 % Normal 24-43 [facility] Comment on above: Performed By: #### C DP ####[address] , [place] 7217183 Lab Director: Samuel Ayers MD MCH (RBC) [Entitic mass] 26.8 pg Normal 25.2-33.5 [facility] Comment on above: Performed By: #### C DP ####[address] , [facility]83 Lab Director: Samuel Ayers MD MCHC (RBC) [Mass/Vol] 31.5 g/dL Normal 28.4-34.8 [facility] Comment on above: Performed By: #### C DP ####[address] [place] [address] Lab Director: Samuel Ayers MD MCV (RBC) [Entitic vol] 85.0 fL Normal 82.6-102.9 [facility] Comment on above: Performed By: #### C DP ####[address] [place] [address] Lab Director: Samuel Ayers MD Monocytes (Bld) [#/Vol] 0.54 10*3/uL Normal 0.10-1.20 [facility] Comment on above: Performed By: #### C DP ####[address] [place] [address] Lab Director: Samuel Ayers MD Monocytes/100 WBC (Bld) 9 % Normal 3-12 [facility] Comment on above: Performed By: #### C DP ####[address] [place] [address] Lab Director: Samuel Ayers MD Neutrophil (Seg) 50 % Normal 36-65 [facility] Comment on above: Performed By: #### C DP ####[address] [place] [address] Lab Director: Samuel Ayers MD NRBC Automated 0.0 per [address] [facility] Comment on above: Performed By: #### C DP ####[address] , [place] 0654983 Lab Director: Samuel Ayers MD Platelet mean volume (Bld) [Entitic vol] 10.8 fL Normal 8.1-13.5 [facility] Comment on above: Performed By: #### C DP ####[facility] [place] [place] , [place] [address] Lab Director: Samuel Ayers MD Platelets (Bld) [#/Vol] 255 10*3/uL Normal 138-453 [facility] Comment on above: Performed By: #### C DP ####[facility] [place] [place] , [place] 3768683 Lab Director: Samuel Ayers MD RBC (Bld) [#/Vol] 3.81 10*6/uL Low 3.95-5.11 [facility] Comment on above: Performed By: #### C DP ####[facility] [place] , [place] 3429283 Lab Director: Samuel Ayers MD WBC (Bld) [#/Vol] 6.4 10*3/uL Normal 3.5-11.3 [facility] Comment on above: Performed By: #### C DP ####[address] , [place] 1781883 Lab Director: Samuel Ayers MD Miscellaneouson 08-01-2023 Send Out Report (NOTE) Normal [facility] Comment on above: Result Comment: Fatt y Acids Profile, Essential Serum or PlasmaInterpretation, Fatty Acids Profile SP See NoteIn this sample the concentration of omega-3 eicosapentaenoicacid (EPA) was elevated, most likely reflecting dietarysupplements.INTERPRETIVE INFORMATION: Fatty Acids Profile, EssentialSer/PlasThis test does not screen for disorders of peroxisomalbiogenesis/function.This test was developed and its performance characteristicsdetermined by [facility]. It has not been cleared orapproved by the [place] Food and Drug Administration. This test wasperformed in a CLIA certified laboratory and is intended forclinical purposes.Arachidic Acid, C20:0 22 nmol/mL (Ref Interval: 8-43)Arachidonic Acid, C20:4w6 546 nmol/mL (Ref Interval: 310-1420)DHA, C22:6w3 307 nmol/mL (Ref Interval: 45-365)DPA, C22:5w3 68 nmol/mL (Ref Interval: 13-75)DPA, C22:5w6 10 nmol/mL (Ref Interval: 6-55)DTA, C22:4w6 12 nmol/mL (Ref Interval: 10-40)Docosenoic Acid, C22:1 4 nmol/mL (Ref Interval: 1-10)EPA, C20:5w3 294 nmol/mL H (Ref Interval: 8-130)Hexadecenoic Acid, C16:1w9 27 nmol/mL (Ref Interval: 14-95)Lauric Acid, C12:0 5 nmol/mL (Ref Interval: 1-200)Linoleic Acid, C18:2w6 1451 nmol/mL (Ref Interval: 8138-0842)a-Linolenic Acid, C18:3w3 39 nmol/mL (Ref Interval: 20-200)p-u-Eyzuumvvf C20:3w6 70 nmol/mL (Ref Interval: 45-340)g-Linolenic Acid, C18:3w6 36 nmol/mL (Ref Interval: 10-120)[place] Acid, C20:3w9 6 nmol/mL (Ref Interval: 1-35)Myristic Acid, C14:0 93 nmol/mL (Ref Interval: 20-520)Nervonic Acid, C24:1w9 102 nmol/mL (Ref Interval: 35-145)Oleic Acid, C18:1w9 1463 nmol/mL (Ref Interval: 740-3900)Palmitic Acid, C16:0 2485 nmol/mL (Ref Interval: 0333-8042)Palmitoleic Acid, C16:1w7 216 nmol/mL (Ref Interval: 35-580)Stearic Acid, C18:0 535 nmol/mL (Ref Interval: 280-1250)Vaccenic Acid, C18:1w7 139 nmol/mL (Ref Interval: 50-250)Triene Tetraene Ratio 0.011 (Ref Interval: 0.004-0.051)Total Saturated Acid 3.1 mmol/L (Ref Interval: 1.5-5.3)Total Monounsaturated Acid 2.0 mmol/L (Ref Interval: 0.9-4.7)Total Polyunsaturated Acid 2.8 mmol/L (Ref Interval: 2.1-6.2)Total w3 0.71 mmol/L H (Ref Interval: 0.12-0.55)Total w6 2.1 mmol/L (Ref Interval: 1.8-5.7)Total Fatty Acids 7.9 mmol/L (Ref Interval: 4.5-15.0)EER Fatty Acids Profile, Essential SP See NoteAuthorized individuals can access the ARUPEnhanced Report using the following link:ARUP Performed By: #### P HO, CMIS, MG, CDP, CP ####[address] [place] [address])[phone] Director: Samuel Ayers MD#### TRIG ####[place] [address] [place], [place] [address])[phone] Director: Ganesh Moyer MD CBC with Diffon 07-24-2023 Abs. Basophil 0.05 k/uL Normal 0.00-0.20 [facility] Comment on above: Performed By: #### P HO, CMIS, MG, CDP, CP ####[address] [place] [address]1683 Lab Director: Samuel Ayers MD#### TRIG ####[place] [address] Lab Director: Ganesh Moyer MD Abs.Imm.Granulocyte <0.03 Normal 0.00-0.30 [facility] Comment on above: Performed By: #### P HO, CMIS, MG, CDP, CP ####[address] [place] [address])[phone] Director: Samuel Ayers MD#### TRIG ####[place], [place] [address])[phone] Director: Ganesh Moyer MD Abs.Neutrophil (Seg) 4.69 k/uL Normal 1.50-8.10 [facility] Comment on above: Performed By: #### P HO, CMIS, MG, CDP, CP ####[address] [place] [address] Lab Director: Samuel Ayers MD#### TRIG ####[address] [address] Lab Director: Ganesh Moyer MD Basophils/100 WBC (Bld) 1 % Normal 0-2 [facility] Comment on above: Performed By: #### P HO, CMIS, MG, CDP, CP ####[address] [place] 33[address]83 Lab Director: Samuel Ayers MD#### TRIG ####[address] [address] Lab Director: Ganesh Moyer MD Eosinophils (Bld) [#/Vol] 0.18 10*3/uL Normal 0.00-0.44 [facility] Comment on above: Performed By: #### P HO, CMIS, MG, CDP, CP ####[address] [place] [address]1683 Lab Director: Samuel Ayers MD#### TRIG ####[place] [address] Lab Director: Ganesh Moyer MD Eosinophils/100 WBC (Bld) 2 % Normal 1-4 [facility] Comment on above: Performed By: #### P HO, CMIS, MG, CDP, CP ####[address] [place] [address] Lab Director: Samuel Ayers MD#### TRIG ####[address] [address] Lab Director: Ganesh Moyer MD Erythrocyte distribution width (RBC) [Ratio] 14.1 % Normal 11.8-14.4 [facility] Comment on above: Performed By: #### P HO, CMIS, MG, CDP, CP ####[address] [place] [address] Lab Director: Samuel Ayers MD#### TRIG ####[address] [address] Lab Director: Ganesh Moyer MD Hematocrit (Bld) [Volume fraction] 37.1 % Normal 36.3-47.1 [facility] Comment on above: Performed By: #### P HO, CMIS, MG, CDP, CP ####[address] [place] [address]83 Lab Director: Samuel Ayers MD#### TRIG ####[place] [address] Lab Director: Ganesh Moyer MD Hemoglobin (Bld) [Mass/Vol] 11.6 g/dL Low 11.9-15.1 [facility] Comment on above: Performed By: #### P HO, CMIS, MG, CDP, CP ####[address] [place] [address] Lab Director: Samuel Ayers MD#### TRIG ####[place] [address] Lab Director: Ganesh Moyer MD Immature granulocytes/100 WBC (Bld) 0 % Normal 0 [facility] Comment on above: Performed By: #### P HO, CMIS, MG, CDP, CP ####[address] [place] [address]1683 Lab Director: Samuel Ayers MD#### TRIG ####[place] [address] Lab Director: Ganesh Moyer MD Lymphocytes (Bld) [#/Vol] 3.07 10*3/uL Normal 1.10-3.70 [facility] Comment on above: Performed By: #### P HO, CMIS, MG, CDP, CP ####[address] [place], [place] 2062983 Lab Director: Samuel Ayers MD#### TRIG ####[place] [address] [place], [place] 3645108 Lab Director: Ganesh Moyer MD Lymphocytes/100 WBC (Bld) 35 % Normal 24-43 [facility] Comment on above: Performed By: #### P HO, CMIS, MG, CDP, CP ####[address] [place] 33[address]83 Lab Director: Samuel Ayers MD#### TRIG ####[address] 0[address]2408 Lab Director: Ganesh Moyer MD MCH (RBC) [Entitic mass] 27.0 pg Normal 25.2-33.5 [facility] Comment on above: Performed By: #### P HO, CMIS, MG, CDP, CP ####[address] [place] [address]83 Lab Director: Samuel Ayers MD#### TRIG ####[address] 3450208 Lab Director: Ganesh Moyer MD MCHC (RBC) [Mass/Vol] 31.3 g/dL Normal 28.4-34.8 [facility] Comment on above: Performed By: #### P HO, CMIS, MG, CDP, CP ####[address] [place], [place] 6027883 Lab Director: Samuel Ayers MD#### TRIG ####[place] [address] [place], [place] 1413808 Lab Director: Ganesh Moyer MD MCV (RBC) [Entitic vol] 86.5 fL Normal 82.6-102.9 [facility] Comment on above: Performed By: #### P HO, CMIS, MG, CDP, CP ####[address] [place], [place] [address])[phone] Director: Samuel Ayers MD#### TRIG ####[address] [address] Lab Director: Ganesh Moyer MD Monocytes (Bld) [#/Vol] 0.86 10*3/uL Normal 0.10-1.20 [facility] Comment on above: Performed By: #### P HO, CMIS, MG, CDP, CP ####[address] [place] [address]83 Lab Director: Samuel Ayers MD#### TRIG ####[address] [address] Lab Director: Ganesh Moyer MD Monocytes/100 WBC (Bld) 10 % Normal 3-12 [facility] Comment on above: Performed By: #### P HO, CMIS, MG, CDP, CP ####[address] [place] [address]83 Lab Director: Samuel Ayers MD#### TRIG ####[address] [address] Lab Director: Ganesh Moyer MD Neutrophil (Seg) 52 % Normal 36-65 [facility] Comment on above: Performed By: #### P HO, CMIS, MG, CDP, CP ####[address] [place], [place] 6998783 Lab Director: Samuel Ayers MD#### TRIG ####[address] [phone])[phone] Director: Ganesh Moyer MD NRBC Automated 0.0 per [address] [facility] Comment on above: Performed By: #### P HO, CMIS, MG, CDP, CP ####[address] [place] [address])[phone] Director: Samuel Ayers MD#### TRIG ####[address] 77523419)[phone] Director: Ganesh Moyer MD Platelet mean volume (Bld) [Entitic vol] 11.1 fL Normal 8.1-13.5 [facility] Comment on above: Performed By: #### P HO, CMIS, MG, CDP, CP ####[address] [place], [place] [address])[phone] Director: Samuel Ayers MD#### TRIG ####[address] [phone])[phone] Director: Ganesh Moyer MD Platelets (Bld) [#/Vol] 291 10*3/uL Normal 138-453 [facility] Comment on above: Performed By: #### P HO, CMIS, MG, CDP, CP ####[address] [place], [place] [address])[phone] Director: Samuel Ayers MD#### TRIG ####[address] [address] Lab Director: Ganesh Moyer MD RBC (Bld) [#/Vol] 4.29 10*6/uL Normal 3.95-5.11 [facility] Comment on above: Performed By: #### P HO, CMIS, MG, CDP, CP ####[address] [place] [address] Lab Director: Samuel Ayers MD#### TRIG ####[address] [phone] Director: Ganesh Moyer MD WBC (Bld) [#/Vol] 8.9 10*3/uL Normal 3.5-11.3 [facility] Comment on above: Performed By: #### P HO, CMIS, MG, CDP, CP ####[address] , [place] 6276683 Lab Director: Samuel Ayers MD#### TRIG ####[place] [address] [place] [address] Lab Director: Ganesh Moyer MD CNOVon 07-24-2023 CNOV Normal [facility] Comp Metabolic Profon 2022 Albumin [Mass/Vol] 4.3 g/dL Normal 3.5-5.2 [facility] Comment on above: Performed By: #### P HO, CMIS, MG, CDP, CP ####[address] , [place] 8460083 Lab Director: Samuel Ayers MD#### TRIG ####[address] [id number])[phone] Director: Ganesh Moyer MD Albumin/Glob Ratio 1.1 Normal 1.0-2.5 [facility] Comment on above: Performed By: #### P HO, CMIS, MG, CDP, CP ####[address] [place] [address] Lab Director: Samuel Ayers MD#### TRIG ####[address] [id number])[phone] Director: Ganesh Moyer MD Alkaline Phos 153 U/L High 35-104 [facility] Comment on above: Performed By: #### P HO, CMIS, MG, CDP, CP ####[address] [place], [place] 2886883 Lab Director: Samuel Ayers MD#### TRIG ####[place] [place] [address] Lab Director: Ganesh Moyer MD ALT [Catalytic activity/Vol] 17 U/L Normal 5-33 [facility] Comment on above: Performed By: #### P HO, CMIS, MG, CDP, CP ####[address] [place], [place] 9118083 Lab Director: Samuel Ayers MD#### TRIG ####[address] [address] Lab Director: Ganesh Moyer MD Anion gap [Moles/Vol] 11 mmol/L Normal 9-17 [facility] Comment on above: Performed By: #### P HO, CMIS, MG, CDP, CP ####[address] [place], [place] 7651783 Lab Director: Samuel Ayers MD#### TRIG ####[address] [address] Lab Director: Ganesh Moyer MD AST [Catalytic activity/Vol] 18 U/L Normal <32 [facility] Comment on above: Performed By: #### P HO, CMIS, MG, CDP, CP ####[address] [place], [place] 1809583 Lab Director: Samuel Ayers MD#### TRIG ####[address] [address] Lab Director: Ganesh Moyer MD Bilirubin [Mass/Vol] 0.9 mg/dL Normal 0.3-1.2 [facility] Comment on above: Performed By: #### P HO, CMIS, MG, CDP, CP ####[address] [place], [place] 6946883 Lab Director: Samuel Ayers MD#### TRIG ####[address] [address] Lab Director: Ganesh Moyer MD BUN/CRE Ratio 43 High 9-20 [facility] Comment on above: Performed By: #### P HO, CMIS, MG, CDP, CP ####[address] [place] [address]([facility])[phone] Director: Samuel Ayers MD#### TRIG ####[address] [address])[phone] Director: Ganesh Moyer MD Calcium [Mass/Vol] 9.7 mg/dL Normal 8.6-10.4 [facility] Comment on above: Performed By: #### P HO, CMIS, MG, CDP, CP ####[address] [place] [address]([facility])[phone] Director: Samuel Ayers MD#### TRIG ####[address] [address])[phone] Director: Ganesh Moyer MD Chloride [Moles/Vol] 100 mmol/L Normal 98-107 [facility] Comment on above: Performed By: #### P HO, CMIS, MG, CDP, CP ####[address] [place] [address]([facility])[phone] Director: Samuel Ayers MD#### TRIG ####[address] [address])[phone] Director: Ganesh Moyer MD CO2 [Moles/Vol] 29 mmol/L Normal 20-31 [facility] Comment on above: Performed By: #### P HO, CMIS, MG, CDP, CP ####[address] [place] [address]([facility])[phone] Director: Samuel Ayers MD#### TRIG ####[address] [address] Lab Director: Ganesh Moyer MD Creatinine [Mass/Vol] 0.7 mg/dL Normal 0.5-0.9 [facility] Comment on above: Performed By: #### P HO, CMIS, MG, CDP, CP ####[address] [place], [place] 450[address]883 Lab Director: Samuel Ayers MD#### TRIG ####[address] [address] Lab Director: Ganesh Moyer MD GFR/1.73 sq M.predicted among non-blacks MDRD (S/P/Bld) [Vol rate/Area] mL/min/{1.73_m2} Normal >60 [facility] Comment on above: Result Comment: Thes e results are not intended for use in patients <18 years of age.eGFR results are calculated without a race factor using the 2020 CKD-EPI equation.Careful clinical correlation is recommended, particularly when comparing to results calculated using previous equations.The CKD-EPI equation is less accurate in patients with extremes of muscle mass, extra-renal metabolism of creatine, excessive creatine ingestion, or following therapy that affects renal tubular secretion. Performed By: #### P HO, CMIS, MG, CDP, CP ####[address] [place], [place] 0532483 Lab Director: Samuel Ayers MD#### TRIG ####[address] [phone] Lab Director: Ganesh Moyer MD Glucose [Mass/Vol] 139 mg/dL High 70-99 [facility] Comment on above: Performed By: #### P HO, CMIS, MG, CDP, CP ####[address] [place], [place] 0924083 Lab Director: Samuel Ayers MD#### TRIG ####[address] 9643908 Lab Director: Ganesh Moyer MD Potassium [Moles/Vol] 4.0 mmol/L Normal 3.7-5.3 [facility] Comment on above: Performed By: #### P HO, CMIS, MG, CDP, CP ####[address] [place] [address]([facility])[phone] Director: Samuel Ayers MD#### TRIG ####[address] [address] Lab Director: Ganesh Moyer MD Protein [Mass/Vol] 8.1 g/dL Normal 6.4-8.3 [facility] Comment on above: Performed By: #### P HO, CMIS, MG, CDP, CP ####[address] [place] [address]([facility])[phone] Director: Samuel Ayers MD#### TRIG ####[address] [address])[phone] Director: Ganesh Moyer MD Sodium [Moles/Vol] 140 mmol/L Normal 135-144 [facility] Comment on above: Performed By: #### P HO, CMIS, MG, CDP, CP ####[address] [place] [address]([facility])[phone] Director: Samuel Ayers MD#### TRIG ####[address] [address] Lab Director: Ganesh Moyer MD Urea nitrogen [Mass/Vol] 30 mg/dL High 6-20 [facility] Comment on above: Performed By: #### P HO, CMIS, MG, CDP, CP ####[address] [place] [address]([facility])[phone] Director: Samuel Ayers MD#### TRIG ####[address] [place] [address] Lab Director: Ganesh Moyer MD Magnesiumon 07-24-2023 Magnesium [Mass/Vol] 2.0 mg/dL Normal 1.6-2.6 [facility] Comment on above: Performed By: #### P HO, CMIS, MG, CDP, CP ####[facility] [place] [address] Lab Director: Saumel Ayers MD#### TRIG ####[place] [place], [place] 4263[address] Lab Director: Ganesh Moyer MD Miscellaneouson 07-24-2023 Test Name ESSENTIAL FATTY ACID PROFILE Normal [facility] Comment on above: Performed By: #### P HO, CMIS, MG, CDP, CP ####[address] , [place] 9046983 Lab Director: Samuel Ayers MD#### TRIG ####[address] 9117008 Lab Director: Ganesh Moyer MD Phosphorus, Inorg.on 023 Phosphorus, Inorg. 3.5 mg/dL Normal 2.6-4.5 [facility] Comment on above: Performed By: #### P HO, CMIS, MG, CDP, CP ####[address] , [place] 6253983 Lab Director: Samuel Ayers MD#### TRIG ####[address] [phone] Lab Director: Ganesh Moyer MD Triglycerideson 07-24-2023 Triglyceride [Mass/Vol] 92 mg/dL Normal <150 [facility] Comment on above: Result Comment: Trig lyceride Guidelines: <150 Desirable 150- 199 Borderline 200-499 High >499 Very high Based on AHA Guidelines for fasting triglyceride, July 2012. Performed By: #### P HO, CMIS, MG, CDP, CP ####[address] , [place] 1364083 Lab Director: Samuel Ayers MD#### TRIG ####[facility] [place], [place] 4408[address] Lab Director: Ganesh Moyer MD CBC with Diffon 07-17-2023 Abs. Basophil 0.05 k/uL Normal 0.00-0.20 [facility] Comment on above: Performed By: #### C DP ####[address] [place], [place] [address])[phone] Director: Samuel Ayers MD Abs.Imm.Granulocyte <0.03 Normal 0.00-0.30 [facility] Comment on above: Performed By: #### C DP ####[address] [place], [place] [address])[phone] Director: Samuel Ayers MD Abs.Neutrophil (Seg) 3.93 k/uL Normal 1.50-8.10 [facility] Comment on above: Performed By: #### C DP ####[address] [place] [address] [facility])[phone] Director: Samuel Ayers MD Basophils/100 WBC (Bld) 1 % Normal 0-2 [facility] Comment on above: Performed By: #### C DP ####[address] [place] [id number])[phone] Director: Samuel Ayers MD Eosinophils (Bld) [#/Vol] 0.28 10*3/uL Normal 0.00-0.44 [facility] Comment on above: Performed By: #### C DP ####[address] [place], [place] [address])[phone] Director: Samuel Ayers MD Eosinophils/100 WBC (Bld) 4 % Normal 1-4 [facility] Comment on above: Performed By: #### C DP ####[address] [place] [address])[phone] Director: Samuel Ayers MD Erythrocyte distribution width (RBC) [Ratio] 13.8 % Normal 11.8-14.4 [facility] Comment on above: Performed By: #### C DP ####[address] , [place] [address] [facility] Director: Samuel Ayers MD Hematocrit (Bld) [Volume fraction] 33.7 % Low 36.3-47.1 [facility] Comment on above: Performed By: #### C DP ####[address] , [place] [address])[phone] Director: Samuel Ayers MD Hemoglobin (Bld) [Mass/Vol] 10.4 g/dL Low 11.9-15.1 [facility] Comment on above: Performed By: #### C DP ####[address] , [place] [address])[phone] Director: Samuel Ayers MD Immature granulocytes/100 WBC (Bld) 0 % Normal 0 [facility] Comment on above: Performed By: #### C DP ####[address] , [place] [address])[phone] Director: Samuel Ayers MD Lymphocytes (Bld) [#/Vol] 2.36 10*3/uL Normal 1.10-3.70 [facility] Comment on above: Performed By: #### C DP ####[address] , [place] [address])[phone] Director: Samuel Ayers MD Lymphocytes/100 WBC (Bld) 32 % Normal 24-43 [facility] Comment on above: Performed By: #### C DP ####[address] , [facility]83 Lab Director: Samuel Ayers MD MCH (RBC) [Entitic mass] 26.8 pg Normal 25.2-33.5 [facility] Comment on above: Performed By: #### C DP ####[address] , [place] [address])[phone] Director: Samuel Ayers MD MCHC (RBC) [Mass/Vol] 30.9 g/dL Normal 28.4-34.8 [facility] Comment on above: Performed By: #### C DP ####[address]Tiffin [facility]83[facility])[phone] Director: Samuel Ayers MD MCV (RBC) [Entitic vol] 86.9 fL Normal 82.6-102.9 [facility] Comment on above: Performed By: #### C DP ####[address] , [place] [address])[phone] Director: Samuel Ayers MD Monocytes (Bld) [#/Vol] 0.65 10*3/uL Normal 0.10-1.20 [facility] Comment on above: Performed By: #### C DP ####[address] , [facility]83[facility])[phone] Director: Samuel Ayers MD Monocytes/100 WBC (Bld) 9 % Normal 3-12 [facility] Comment on above: Performed By: #### C DP ####[address] [place] [address] Lab Director: Samuel Ayers MD Neutrophil (Seg) 54 % Normal 36-65 [facility] Comment on above: Performed By: #### C DP ####[address] [place] [address]([facility])[phone] Director: Samuel Ayers MD NRBC Automated 0.0 per [address] [facility] Comment on above: Performed By: #### C DP ####[address] , [place] [id number] Lab Director: Samuel Ayers MD Platelet mean volume (Bld) [Entitic vol] 11.2 fL Normal 8.1-13.5 [facility] Comment on above: Performed By: #### C DP ####[address] , [place] [phone] Lab Director: Samuel Ayers MD Platelets (Bld) [#/Vol] 235 10*3/uL Normal 138-453 [facility] Comment on above: Performed By: #### C DP ####[address] , [place] [phone] Lab Director: Samuel Ayers MD RBC (Bld) [#/Vol] 3.88 10*6/uL Low 3.95-5.11 [facility] Comment on above: Performed By: #### C DP ####[address] , [place] [phone] Lab Director: Samuel Ayers MD WBC (Bld) [#/Vol] 7.3 10*3/uL Normal 3.5-11.3 [facility] Comment on above: Performed By: #### C DP ####[address] , [place] [id number] Lab Director: Samuel Ayers MD XR ANKLE RIGHT (MIN 3 VIEWS) on 06-17-2023 XR ANKLE RIGHT (MIN 3 VIEWS) Normal [facility] 1. No acute abnormal ity. [facility] EXAMINATION: THREE XRAY VIEWS OF THE RIGHT ANKLE 06/17/2023 7:55 pm COMPARISON: None. HISTORY: ORDERING SYSTEM PROVIDED HISTORY: rt ankle pain TECHNOLOGIST PROVIDED HISTORY: rt ankle pain FINDINGS: There is no acute fracture or dislocation. There is an old avulsion fracture involving the lateral malleolus. The bones are slightly demineralized. There are no bony destructive lesions. Soft tissue swelling surrounds the medial malleolus. [facility] Jasen Su MD - 06/17/2023 EXAMINATION: THREE XRAY VIEWS OF THE RIGHT ANKLE 06/17/2023 7:55 pm COMPARISON: None. HISTORY: ORDERING SYSTEM PROVIDED HISTORY: rt ankle pain TECHNOLOGIST PROVIDED HISTORY: rt ankle pain FINDINGS: There is no acute fracture or dislocation. There is an old avulsion fracture involving the lateral malleolus. The bones are slightly demineralized. There are no bony destructive lesions. Soft tissue swelling surrounds the medial malleolus. IMPRESSION: 1. No acute abnormality. [facility] Radiology Study observation (narrative) [facility] [employer] XR ANKLE RIGHT (MIN 3 VIEWS) Ordered By: Jasen Su on 06-17-2023 [facility] [employer] Work Phone: Vitamin B6on 06-09-2023 Vitamin B6 29.4 nmol/L Normal 20.0-125.0 [facility] Comment on above: Result Comment: (NOT E)INTERPRETIVE INFORMATION: Vitamin B6 (Pyridoxal 5-Phosphate)Pyridoxal 5'-phosphate measured in a specimen collected followingan 8-hour or overnight fast accurately indicates vitamin B1izulrgmdhln status. Non-fasting specimen concentration reflectsrecent vitamin intake.This test was developed and its performance characteristicsdetermined by [facility]. It has not been cleared orapproved by the [place] Food and Drug Administration. This test wasperformed in a CLIA certified laboratory and is intended forclinical purposes.Performed By: [facility] [place], [place] [address]Oqvyeuzkuq Director: Kyle Ledesma MD, PhDCLIA Number: [id number] Performed By: #### A TERE, AVITB6, ACHROM, ACU, AZN ####[facility] [place] [address] Lab Director: Alfonso Perez MD#### MG, CRP, CP, ANURADHA ####[facility] [place] [address] Lab Director: Samuel Ayers MD Chromium, Serumon 06-08-2023 Chromium, Serum 2.8 ug/L Normal <=5.0 [facility] Comment on above: Result Comment: (NOT E)INTERPRETIVE INFORMATION: Chromium, SerumElevated results may be due to skin or collection-relatedcontamination, including the use of a noncertified metal-freecollection/transport tube. If contamination concerns exist due toelevated levels of serum chromium, confirmation with a secondspecimen collected in a certified metal-free tube is recommended.Serum chromium levels can be significantly higher in patients hfkrebsux-rt-qpszc total hip replacement implants than in controlpatients without metal implants. Serum chromium levels may beincreased in asymptomatic patients with yzvob-jk-gkmqx prostheticsand should be considered in the context of the overall clinicalscenario. Whole blood is the specimen type recommended by the U.S.Food and Drug Administration for assessing the risks sjlwnjm-gi-qdbxd hip implants in symptomatic patients.Symptoms associated with chromium toxicity vary based on route ofexposure and dose, and may include dermatitis, impairment ofpulmonary function, gastroenteritis, hepatic necrosis, bleeding,and acute tubular necrosis.This test was developed and its performance characteristicsdetermined by [facility]. It has not been cleared orapproved by the [place] Food and Drug Administration. This test wasperformed in a CLIA certified laboratory and is intended forclinical purposes.Performed By: [facility] [place], [place] [address]Btfkxicbor Director: Kyle Ledesma MD, PhDCLIA Number: [id number] Performed By: #### A TERE, AVITB6, ACHROM, ACU, AZN ####[facility] [place] [address] Lab Director: Alfonso Perez MD#### MG, CRP, CP, ANURADHA ####[facility] [place] [address] [facility] Director: Samuel Ayers MD Copperon 06-08-2023 Copper 124.4 ug/dL Normal 80.0-155.0 [facility] Comment on above: Result Comment: (NOT E)INTERPRETIVE INFORMATION: Copper, Serum or PlasmaElevated results may be due to skin or collection-relatedcontamination, including the use of a noncertified metal-freecollection/transport tube. If contamination concerns exist due toelevated levels of serum/plasma copper, confirmation with a secondspecimen collected in a certified metal-free tube is recommended.Serum copper may be elevated with infection, inflammation, stress,and copper supplementation. In females, elevated copper may alsobe caused by oral contraceptives and (concentrations maybe elevated up to 3 times normal during the third trimester).This test was developed and its performance characteristicsdetermined by [facility]. It has not been cleared orapproved by the [place] Food and Drug Administration. This test wasperformed in a CLIA certified laboratory and is intended forclinical purposes.Performed By: [facility] [place], [place] [address]Hlkqbeswvj Director: Kyle Ledesma MD, PhDCLIA Number: [id number] Performed By: #### A TERE, AVITB6, ACHROM, ACU, AZN ####[facility] [place] [address] lab Director: Alfonso Perez MD#### MG, CRP, CP, ANURADHA ####[facility] [place] [address] Lab Director: Samuel Ayers MD Seleniumon 06-08-2023 Selenium 149.2 ug/L Normal 23.0-190.0 [facility] Comment on above: Result Comment: (NOT E)INTERPRETIVE INFORMATION: Selenium, Serum or PlasmaElevated results may be due to contamination from skin or othercollection-related issues, including the use of a noncertifiedmetal-free collection/transport tube. If contamination concernsexist due to elevated levels of serum/plasma selenium,confirmation with a second specimen collected in a certifiedmetal-free tube is recommended.Serum selenium levels can be used in the determination ofdeficiency or toxicity. Plasma and serum contains 75 percent ofthe selenium measured in whole blood and reflects recent dietaryintake. Selenium deficiency can occur endemically or as a resultof sustained TPN or restricted diets and has been associated withcardiomyopathy and may exacerbate hypothyroidism. Seleniumtoxicity is relatively rare. Excess intake of selenium can resultin symptoms consistent with selenosis and include gastrointestinalupset, hair loss, white blotchy nails, and mild nerve damage.This test was developed and its performance characteristicsdetermined by [facility]. It has not been cleared orapproved by the [place] Food and Drug Administration. This test wasperformed in a CLIA certified laboratory and is intended forclinical purposes.Performed By: [facility] [place] [id number] Director: Kyle Ledesma MD, PhDCLIA Number: [id number] Performed By: #### A TERE, AVITB6, ACHROM, ACU, AZN ####[address] [address] Lab Director: Alfonso Perez MD#### MG, CRP, CP, ANURADHA ####[facility] [place] [address] Lab Director: Samuel Ayers MD Zinc, Serumon 06-08-2023 Zinc, Serum 153.9 ug/dL High 60.0-120.0 [facility] Comment on above: Result Comment: (NOT E)INTERPRETIVE INFORMATION: Zinc, Serum or PlasmaElevated results may be due to skin or collection-relatedcontamination, including the use of a noncertified metal-freecollection/transport tube. If contamination concerns exist due toelevated levels of serum/plasma zinc, confirmation with a secondspecimen collected in a certified metal-free tube is recommended.Circulating zinc concentrations are dependent on albumin statusand are depressed with malnutrition. Zinc may also be loweredwith infection, inflammation, stress, oral contraceptives, andpregnancy. Zinc may be elevated with zinc supplementation orfasting. Elevated zinc concentrations may interfere with copperabsorption.This test was developed and its performance characteristicsdetermined by [facility]. It has not been cleared orapproved by the [place] Food and Drug Administration. This test wasperformed in a CLIA certified laboratory and is intended forclinical purposes.Performed By: [facility] [place] [id number] Director: Kyle Ledesma MD, PhDCLIA Number: [id number] Performed By: #### A TERE, AVITB6, ACHROM, ACU, AZN ####[facility] [place] [id number] lab Director: Alfonso Perez MD#### MG, CRP, CP, ANURADHA ####[address] [place] [address] lab Director: Samuel Ayers MD C-Reactive Proteinon CRP [Mass/Vol] mg/L Normal 0.0-5.0 [facility] Comment on above: Performed By: #### A TERE, AVITB6, ACHROM, ACU, AZN ####[facility] [address] [place], [place] [id number] lab Director: Alfonso Perez MD#### MG, CRP, CP, ANURADHA ####[address] [place] [address] lab Director: Samuel Ayers MD Comp Metabolic Profon 1 Albumin [Mass/Vol] 4.4 g/dL Normal 3.5-5.2 [facility] Comment on above: Performed By: #### A TERE, AVITB6, ACHROM, ACU, AZN ####[facility] [address] [place] [address] [id number] lab Director: Alfonso Perez MD#### MG, CRP, CP, ANURADHA ####[address] [place] [address] Lab Director: Samuel Ayers MD Albumin/Glob Ratio 1.1 Normal 1.0-2.5 [facility] Comment on above: Performed By: #### A TERE, AVITB6, ACHROM, ACU, AZN ####[facility] [address] [place], [place] [id number] Lab Director: Alfonso Perez MD#### MG, CRP, CP, ANURADHA ####[address] [place] [address] lab Director: Samuel Ayers MD Alkaline Phos 165 U/L High 35-104 [facility] Comment on above: Performed By: #### A TERE, AVITB6, ACHROM, ACU, AZN ####[facility] [address] [place], [place] [id number] Lab Director: Alfonso Perez MD#### MG, CRP, CP, ANURADHA ####[address] [place] [address] Lab Director: Samuel Ayers MD ALT [Catalytic activity/Vol] 70 U/L High 5-33 [facility] Comment on above: Performed By: #### A TERE, AVITB6, ACHROM, ACU, AZN ####[facility] [address] [place] [id number] lab Director: Alfonso Perez MD#### MG, CRP, CP, ANURADHA ####[address] [place] [address] [facility] Director: Samuel Ayers MD Anion gap [Moles/Vol] 12 mmol/L Normal 9-17 [facility] Comment on above: Performed By: #### A TERE, AVITB6, ACHROM, ACU, AZN ####[facility] [address] [place] [id number] lab Director: Alfonso Perez MD#### MG, CRP, CP, ANURADHA ####[address] , [place] [id number] [facility] Director: Samuel Ayers MD AST [Catalytic activity/Vol] 71 U/L High <32 [facility] Comment on above: Performed By: #### A TERE, AVITB6, ACHROM, ACU, AZN ####[facility] [address] [place] [id number] lab Director: Alfonso Perez MD#### MG, CRP, CP, ANURADHA ####[address] [place] [address] Lab Director: Samuel Ayers MD Bilirubin [Mass/Vol] 0.6 mg/dL Normal 0.3-1.2 [facility] Comment on above: Performed By: #### A TERE, AVITB6, ACHROM, ACU, AZN ####[facility] [address] [place] [address] Lab Director: Alfonso Perez MD#### MG, CRP, CP, ANURADHA ####[address] [place] [address] Lab Director: Samuel Ayers MD BUN/CRE Ratio 39 High 9-20 [facility] Comment on above: Performed By: #### A TERE, AVITB6, ACHROM, ACU, AZN ####[facility] [address] [place] [address] Lab Director: Alfonso Perez MD#### MG, CRP, CP, ANURADHA ####[address] , [place] [id number] lab Director: Samuel Ayers MD Calcium [Mass/Vol] 9.9 mg/dL Normal 8.6-10.4 [facility] Comment on above: Performed By: #### A TERE, AVITB6, ACHROM, ACU, AZN ####[facility] [address] [place] [address] Lab Director: Alfonso Perez MD#### MG, CRP, CP, ANURADHA ####[address] [place] [address] lab Director: Samuel Ayers MD Chloride [Moles/Vol] 96 mmol/L Low 98-107 [facility] Comment on above: Performed By: #### A TERE, AVITB6, ACHROM, ACU, AZN ####[facility] [address] [place] [address] Lab Director: Alfonso Perez MD#### MG, CRP, CP, ANURADHA ####[facility] [place] [address] Lab Director: Samuel Ayers MD CO2 [Moles/Vol] 27 mmol/L Normal 20-31 [facility] Comment on above: Performed By: #### A TERE, AVITB6, ACHROM, ACU, AZN ####[facility] [address] [place] [address] Lab Director: Alfonso Perez MD#### MG, CRP, CP, ANURADHA ####[facility] [place] [address] Lab Director: Samuel Ayers MD Creatinine [Mass/Vol] 0.8 mg/dL Normal 0.5-0.9 [facility] Comment on above: Performed By: #### A TERE, AVITB6, ACHROM, ACU, AZN ####[facility] [address] [place] [address] Lab Director: Alfonso Perez MD#### MG, CRP, CP, ANURADHA ####[address] [place] [address] Lab Director: Samuel Ayers MD GFR/1.73 sq M.predicted among non-blacks MDRD (S/P/Bld) [Vol rate/Area] mL/min/{1.73_m2} Normal >60 [facility] Comment on above: Result Comment: Thes e results are not intended for use in patients <18 years of age.eGFR results are calculated without a race factor using the 2020 CKD-EPI equation.Careful clinical correlation is recommended, particularly when comparing to results calculated using previous equations.The CKD-EPI equation is less accurate in patients with extremes of muscle mass, extra-renal metabolism of creatine, excessive creatine ingestion, or following therapy that affects renal tubular secretion. Performed By: #### A TERE, AVITB6, ACHROM, ACU, AZN ####[facility] [address] [facility] [place] [address] Lab Director: Alfonso Perez MD#### MG, CRP, CP, ANURADHA ####[address] , [place] [id number] Lab Director: Samuel Ayers MD Glucose [Mass/Vol] 149 mg/dL High 70-99 [facility] Comment on above: Performed By: #### A TERE, AVITB6, ACHROM, ACU, AZN ####[facility] [address] [place] [address] Lab Director: Alfonso Perez MD#### MG, CRP, CP, ANURADHA ####[address] [place] [address] Lab Director: Samuel Ayers MD Potassium [Moles/Vol] 4.1 mmol/L Normal 3.7-5.3 [facility] Comment on above: Performed By: #### A TERE, AVITB6, ACHROM, ACU, AZN ####[address] [address] Lab Director: Alfonso Perez MD#### MG, CRP, CP, ANURADHA ####[address] , [place] [id number] Lab Director: Samuel Ayers MD Protein [Mass/Vol] 8.5 g/dL High 6.4-8.3 [facility] Comment on above: Performed By: #### A TERE, AVITB6, ACHROM, ACU, AZN ####[facility] [address] [place] [address] Lab Director: Alfonso Perez MD#### MG, CRP, CP, ANURADHA ####[address] , [place] [id number] Lab Director: Samuel Ayers MD Sodium [Moles/Vol] 135 mmol/L Normal 135-144 [facility] Comment on above: Performed By: #### A TERE, AVITB6, ACHROM, ACU, AZN ####[facility] [address] [place], [place] [id number] Lab Director: Alfonso Perez MD#### MG, CRP, CP, ANURADHA ####[address] [place] [address] lab Director: Samuel Ayers MD Urea nitrogen [Mass/Vol] 31 mg/dL High 6-20 [facility] Comment on above: Performed By: #### A TERE, AVITB6, ACHROM, ACU, AZN ####[facility] [address] [place], [place] [id number] lab Director: Alfonso Perez MD#### MG, CRP, CP, ANURADHA ####[address] [place] [address] [facility] Director: Samuel Ayers MD Magnesiumon 06-06-2023 Magnesium [Mass/Vol] 1.9 mg/dL Normal 1.6-2.6 [facility] Comment on above: Performed By: #### A TERE, AVITB6, ACHROM, ACU, AZN ####[facility] [address] [place] [address] [id number] lab Director: Alfonso Perez MD#### MG, CRP, CP, ANURADHA ####[address] [place] [address] lab Director: Samuel Ayers MD Phosphorus, Inorg.on 023 Phosphorus, Inorg. 4.0 mg/dL Normal 2.6-4.5 [facility] Comment on above: Performed By: #### A TERE, AVITB6, ACHROM, ACU, AZN ####[facility] [address] [place], [place] [id number] lab Director: Alfonso Perez MD#### MG, CRP, CP, ANURADHA ####[facility] [place] [address] lab Director: Samuel Ayers MD CBC with Auto Differentialon 05-29-2023 Basophils (Bld) [#/Vol] 0.05 10*3/uL [facility] Basophils/100 WBC (Bld) 1 % 0 - 2 % [facility] Eosinophils (Bld) [#/Vol] 0.19 10*3/uL [facility] Eosinophils/100 WBC (Bld) 2 % 1 - 4 % [facility] Erythrocyte distribution width (RBC) [Ratio] 13.5 % 11.8 - 14.4 % [facility] Hematocrit (Bld) [Volume fraction] 31.4 % Low 36.3 - 47.1 % [facility] Hemoglobin (Bld) [Mass/Vol] 9.8 g/dL Low 11.9 - 15.1 g/dL [facility] Immature granulocytes (Bld) [#/Vol] [facility] Immature granulocytes/100 WBC (Bld) 0 % 0 [facility] Interpretation and review of laboratory results Abnormal [facility] Lymphocytes/100 WBC (Bld) 27 % 24 - 43 % [facility] Lymphocytes/100 WBC (Bld) 2.42 % [facility] MCH (RBC) [Entitic mass] 27.6 pg 25.2 - 33.5 pg [facility] MCHC (RBC) [Mass/Vol] 31.2 g/dL 28.4 - 34.8 g/dL [facility] MCV (RBC) [Entitic vol] 88.5 fL 82.6 - 102.9 fL [facility] Monocytes/100 WBC (Bld) 8 % 3 - 12 % [facility] Monocytes/100 WBC (Bld) 0.70 % [facility] Neutrophils/100 WBC (Bld) 62 % 36 - 65 % [facility] Nucleated RBC/100 WBC (Bld) [Ratio] 0.0 % 0.0 per 100 WBC [facility] Platelet mean volume (Bld) [Entitic vol] 10.9 fL 8.1 - 13.5 fL [facility] Platelets (Bld) [#/Vol] 282 10*3/uL [facility] RBC (Bld) [#/Vol] 3.55 10*6/uL Low 3.95 - 5.11 m/uL [facility] Segmented neutrophils/100 WBC (Bld) 5.57 % [facility] WBC other (Bld) [#/Vol] 9.0 [facility] CBC with Diffon 05-29-2023 Abs. Basophil 0.05 k/uL Normal 0.00-0.20 [facility] Comment on above: Performed By: #### C DP, MG, CP, ANURADHA ####[address] [place] [id number] Lab Director: Samuel Ayers MD Abs.Imm.Granulocyte <0.03 Normal 0.00-0.30 [facility] Comment on above: Performed By: #### C DP, MG, CP, ANURADHA ####[address] , [facility]83 Lab Director: Samuel Ayers MD Abs.Neutrophil (Seg) 5.57 k/uL Normal 1.50-8.10 [facility] Comment on above: Performed By: #### C DP, MG, CP, ANURADHA ####[address] , [facility]83 Lab Director: Samuel Ayers MD Basophils/100 WBC (Bld) 1 % Normal 0-2 [facility] Comment on above: Performed By: #### C DP, MG, CP, ANURADHA ####[address] , [facility]83 Lab Director: Samuel Ayers MD Eosinophils (Bld) [#/Vol] 0.19 10*3/uL Normal 0.00-0.44 [facility] Comment on above: Performed By: #### C DP, MG, CP, ANURADHA ####[address] , [place] [address] Lab Director: Samuel Ayres MD Eosinophils/100 WBC (Bld) 2 % Normal 1-4 [facility] Comment on above: Performed By: #### C DP, MG, CP, ANURADHA ####[address] , [place] [address])[phone] Director: Samuel Ayers MD Erythrocyte distribution width (RBC) [Ratio] 13.5 % Normal 11.8-14.4 [facility] Comment on above: Performed By: #### C DP, MG, CP, ANURADHA ####[address] [place] [address] Lab Director: Samuel Ayers MD Hematocrit (Bld) [Volume fraction] 31.4 % Low 36.3-47.1 [facility] Comment on above: Performed By: #### C DP, MG, CP, ANURADHA ####[address] , [place] [address] [facility])[phone] Director: Samuel Ayers MD Hemoglobin (Bld) [Mass/Vol] 9.8 g/dL Low 11.9-15.1 [facility] Comment on above: Performed By: #### C DP, MG, CP, ANURADHA ####[address] , [place] [address])[phone] Director: Samuel Ayers MD Immature granulocytes/100 WBC (Bld) 0 % Normal 0 [facility] Comment on above: Performed By: #### C DP, MG, CP, ANURADHA ####[address] , [facility]83 Lab Director: Samuel Ayers MD Lymphocytes (Bld) [#/Vol] 2.42 10*3/uL Normal 1.10-3.70 [facility] Comment on above: Performed By: #### C DP, MG, CP, ANURADHA ####[address] , [place] [address] Lab Director: Samuel Ayers MD Lymphocytes/100 WBC (Bld) 27 % Normal 24-43 [facility] Comment on above: Performed By: #### C DP, MG, CP, ANURADHA ####[address] , [place] [address])[phone] Director: Samuel Ayers MD MCH (RBC) [Entitic mass] 27.6 pg Normal 25.2-33.5 [facility] Comment on above: Performed By: #### C DP, MG, CP, ANURADHA ####[address] , [place] [address])[phone] Director: Samuel Ayers MD MCHC (RBC) [Mass/Vol] 31.2 g/dL Normal 28.4-34.8 [facility] Comment on above: Performed By: #### C DP, MG, CP, ANURADHA ####[address] , [place] [address])[phone] Director: Samuel Ayers MD MCV (RBC) [Entitic vol] 88.5 fL Normal 82.6-102.9 [facility] Comment on above: Performed By: #### C DP, MG, CP, ANURADHA ####[address] , [place] [address])[phone] Director: Samuel Ayers MD Monocytes (Bld) [#/Vol] 0.70 10*3/uL Normal 0.10-1.20 [facility] Comment on above: Performed By: #### C DP, MG, CP, ANURADHA ####[address] , [facility]83 Lab Director: Samuel Ayers MD Monocytes/100 WBC (Bld) 8 % Normal 3-12 [facility] Comment on above: Performed By: #### C DP, MG, CP, ANURADHA ####[address] , [place] [id number] Lab Director: Samuel Ayers MD Neutrophil (Seg) 62 % Normal 36-65 [facility] Comment on above: Performed By: #### C DP, MG, CP, ANURADHA ####[address] , [facility]83 Lab Director: Samuel Ayers MD NRBC Automated 0.0 per [address] [facility] Comment on above: Performed By: #### C DP, MG, CP, ANURADHA ####[address] , [facility]83 Lab Director: Samuel Ayers MD Platelet mean volume (Bld) [Entitic vol] 10.9 fL Normal 8.1-13.5 [facility] Comment on above: Performed By: #### C DP, MG, CP, ANURADHA ####[address] , [facility]83 Lab Director: Samuel Ayers MD Platelets (Bld) [#/Vol] 282 10*3/uL Normal 138-453 [facility] Comment on above: Performed By: #### C DP, MG, CP, ANURADHA ####[address] , [facility]83 Lab Director: Samuel Ayers MD RBC (Bld) [#/Vol] 3.55 10*6/uL Low 3.95-5.11 [facility] Comment on above: Performed By: #### C DP, MG, CP, ANURADHA ####[address] [place] [address] Lab Director: Samuel Ayers MD WBC (Bld) [#/Vol] 9.0 10*3/uL Normal 3.5-11.3 [facility] Comment on above: Performed By: #### C DP, MG, CP, ANURADHA ####[address] , [place] 2354783 Lab Director: Samuel Ayers MD Comp Metabolic Profon 2022 Albumin [Mass/Vol] 3.8 g/dL Normal 3.5-5.2 [facility] Comment on above: Performed By: #### C DP, MG, CP, ANURADHA ####[address] , [place] [id number] Lab Director: Samuel Ayers MD Albumin/Glob Ratio 1.1 Normal 1.0-2.5 [facility] Comment on above: Performed By: #### C DP, MG, CP, ANURADHA ####[address] , [place] 8342683 lab Director: Samuel Ayers MD Alkaline Phos 156 U/L High 35-104 [facility] Comment on above: Performed By: #### C DP, MG, CP, ANURADHA ####[address] , [place] 6888983 lab Director: Samuel Ayers MD ALT [Catalytic activity/Vol] 46 U/L High 5-33 [facility] Comment on above: Performed By: #### C DP, MG, CP, ANURADHA ####[address] , [place] 7173383 lab Director: Samuel Ayers MD Anion gap [Moles/Vol] 10 mmol/L Normal 9-17 [facility] Comment on above: Performed By: #### C DP, MG, CP, ANURADHA ####[address] , [place] [id number] Lab Director: Samuel Ayers MD AST [Catalytic activity/Vol] 21 U/L Normal <32 [facility] Comment on above: Performed By: #### C DP, MG, CP, ANURADHA ####[address] , [place] 6094083 [facility] Director: Samuel Ayers MD Bilirubin [Mass/Vol] 0.5 mg/dL Normal 0.3-1.2 [facility] Comment on above: Performed By: #### C DP, MG, CP, ANURADHA ####[address] , [place] [phone] lab Director: Samuel Ayers MD BUN/CRE Ratio 39 High 9-20 [facility] Comment on above: Performed By: #### C DP, MG, CP, ANURADHA ####[address] , [place] 7183983 lab Director: Samuel Ayers MD Calcium [Mass/Vol] 9.3 mg/dL Normal 8.6-10.4 [facility] Comment on above: Performed By: #### C DP, MG, CP, ANURADHA ####[address] , [place] 4104683 lab Director: Samuel Ayers MD Chloride [Moles/Vol] 107 mmol/L Normal 98-107 [facility] Comment on above: Performed By: #### C DP, MG, CP, ANURADHA ####[address] , [place] 7994083 lab Director: Samuel Ayers MD CO2 [Moles/Vol] 23 mmol/L Normal 20-31 [facility] Comment on above: Performed By: #### C DP, MG, CP, ANURADHA ####[address] , [place] 1753883 lab Director: Samuel Ayers MD Creatinine [Mass/Vol] 1.0 mg/dL High 0.5-0.9 [facility] Comment on above: Performed By: #### C DP, MG, CP, ANURADHA ####[address] , [place] 0755183 lab Director: Samuel Ayers MD GFR/1.73 sq M.predicted among non-blacks MDRD (S/P/Bld) [Vol rate/Area] mL/min/{1.73_m2} Normal >60 [facility] Comment on above: Result Comment: Thes e results are not intended for use in patients <18 years of age.eGFR results are calculated without a race factor using the 2020 CKD-EPI equation.Careful clinical correlation is recommended, particularly when comparing to results calculated using previous equations.The CKD-EPI equation is less accurate in patients with extremes of muscle mass, extra-renal metabolism of creatine, excessive creatine ingestion, or following therapy that affects renal tubular secretion. Performed By: #### C DP, MG, CP, ANURADHA ####[address] [place] [address] Lab Director: Samuel Ayers MD Glucose [Mass/Vol] 111 mg/dL High 70-99 [facility] Comment on above: Performed By: #### C DP, MG, CP, ANURADHA ####[address] [place], [place] 9506483 Lab Director: Samuel Ayers MD Potassium [Moles/Vol] 4.2 mmol/L Normal 3.7-5.3 [facility] Comment on above: Performed By: #### C DP, MG, CP, ANURADHA ####[address] [place], [place] 2164083 Lab Director: Samuel Ayers MD Protein [Mass/Vol] 7.3 g/dL Normal 6.4-8.3 [facility] Comment on above: Performed By: #### C DP, MG, CP, ANURADHA ####[address] , [place] 5486383 Lab Director: Samuel Ayers MD Sodium [Moles/Vol] 140 mmol/L Normal 135-144 [facility] Comment on above: Performed By: #### C DP, MG, CP, ANURADHA ####[address] [place] [address] lab Director: Samuel Ayers MD Urea nitrogen [Mass/Vol] 39 mg/dL High 6-20 [facility] Comment on above: Performed By: #### C DP, MG, CP, ANURADHA ####[facility] [place] , [place] [id number] lab Director: Samuel Ayers MD Comprehensive Metabolic Pane [facility] 05-29-2023 Albumin [Mass/Vol] 3.8 g/dL 3.5 - 5.2 g/dL [facility] Albumin/Globulin [Mass ratio] 1.1 {ratio} 1.0 - 2.5 [facility] ALP [Catalytic activity/Vol] 156 U/L High 35 - 104 U/L [facility] ALT [Catalytic activity/Vol] 46 U/L High 5 - 33 U/L [facility] Anion gap [Moles/Vol] 10 mmol/L 9 - 17 mmol/L [facility] AST [Catalytic activity/Vol] 21 U/L NINF - 32 U/L [facility] Bilirubin [Mass/Vol] 0.5 mg/dL 0.3 - 1 .2 mg/dL [facility] Calcium [Mass/Vol] 9.3 mg/dL 8.6 - 10. 4 mg/dL [facility] Chloride [Moles/Vol] 107 mmol/L 98 - 10 7 mmol/L [facility] CO2 [Moles/Vol] 23 mmol/L 20 - 31 mmol/L [facility] Creatinine [Mass/Vol] 1.0 mg/dL High 0.5 - 0.9 mg/dL [facility] GFR/1.73 sq M.predicted MDRD (S/P/Bld) [Vol rate/Area] - PINF [facility] Comment on above: These results are not intended for use in patients <18 years of age. eGFR results are calculated without a race factor using the 2020 CKD-EPI equation. Careful clinical correlation is recommended, particularly when comparing to results calculated using previous equations. The CKD-EPI equation is less accurate in patients with extremes of muscle mass, extra-renal metabolism of creatine, excessive creatine ingestion, or following therapy that affects renal tubular secretion. Glucose [Mass/Vol] 111 mg/dL High 70 - 99 mg/dL [facility] Interpretation and review of laboratory results Abnormal [facility] Potassium [Moles/Vol] 4.2 mmol/L 3.7 - 5.3 mmol/L [facility] Protein [Mass/Vol] 7.3 g/dL 6.4 - 8.3 g/dL [facility] Sodium [Moles/Vol] 140 mmol/L 135 - 144 mmol/L [facility] Urea nitrogen [Mass/Vol] 39 mg/dL High 6 - 20 mg/dL [facility] Urea nitrogen/Creatinine [Mass ratio] 39 mg/mg High 9 - 20 [facility] Magnesiumon 05-29-2023 Magnesium [Mass/Vol] 1.8 mg/dL Normal 1.6-2.6 [facility] Comment on above: Performed By: #### C DP, MG, CP, ANURADHA ####[facility] [place] , [facility]83 [facility] Director: Samuel Ayers MD Magnesium [Mass/Vol] 1.8 mg/dL 1.6 - 2 .6 mg/dL [facility] No Panel Informationon 05-29 [facility] Phosphoruson 05-29-2023 Phosphate [Mass/Vol] 3.4 mg/dL 2.6 - 4 .5 mg/dL [facility] Phosphorus, Inorg.on 023 Phosphorus, Inorg. 3.4 mg/dL Normal 2.6-4.5 [facility] Comment on above: Performed By: #### C DP, MG, CP, ANURADHA ####[facility] [place] [address] lab Director: Samuel Ayers MD CBC with Diffon 05-22-2023 Abs. Basophil 0.05 k/uL Normal 0.00-0.20 [facility] Comment on above: Performed By: #### M G, ANURADHA, CP, CDP ####[facility] [address] [place] [id number] Lab Director: Samuel Ayers MD Abs.Imm.Granulocyte <0.03 Normal 0.00-0.30 [facility] Comment on above: Performed By: #### M G, ANURADHA, CP, CDP ####[address] [place] [address] Lab Director: Samuel Ayers MD Abs.Neutrophil (Seg) 2.95 k/uL Normal 1.50-8.10 [facility] Comment on above: Performed By: #### M G, ANURADHA, CP, CDP ####[address] [place], [place] [address])[phone] Director: Samuel Ayers MD Basophils/100 WBC (Bld) 1 % Normal 0-2 [facility] Comment on above: Performed By: #### M G, ANURADHA, CP, CDP ####[address] [place], [place] [address])[phone] Director: Samuel Ayers MD Eosinophils (Bld) [#/Vol] 0.23 10*3/uL Normal 0.00-0.44 [facility] Comment on above: Performed By: #### M G, ANURADHA, CP, CDP ####[address] [place] [address] Lab Director: Samuel Ayers MD Eosinophils/100 WBC (Bld) 4 % Normal 1-4 [facility] Comment on above: Performed By: #### M G, ANURADHA, CP, CDP ####[address] [place] [phone] Lab Director: Samuel Ayers MD Erythrocyte distribution width (RBC) [Ratio] 14.3 % Normal 11.8-14.4 [facility] Comment on above: Performed By: #### M G, ANURADHA, CP, CDP ####[address] [address])[phone] Director: Samuel Ayers MD Hematocrit (Bld) [Volume fraction] 31.2 % Low 36.3-47.1 [facility] Comment on above: Performed By: #### M G, ANURADHA, CP, CDP ####[address] [place], [place] [address])[phone] Director: Samuel Ayers MD Hemoglobin (Bld) [Mass/Vol] 9.7 g/dL Low 11.9-15.1 [facility] Comment on above: Performed By: #### M G, ANURADHA, CP, CDP ####[address] [place], [place] [address])[phone] Director: Samuel Ayers MD Immature granulocytes/100 WBC (Bld) 0 % Normal 0 [facility] Comment on above: Performed By: #### M G, ANURADHA, CP, CDP ####[address] [place], [place] [address])[phone] Director: Samuel Ayers MD Lymphocytes (Bld) [#/Vol] 2.58 10*3/uL Normal 1.10-3.70 [facility] Comment on above: Performed By: #### M G, ANURADHA, CP, CDP ####[address] [place], [place] [address])[phone] Director: Samuel Ayers MD Lymphocytes/100 WBC (Bld) 39 % Normal 24-43 [facility] Comment on above: Performed By: #### M G, ANURADHA, CP, CDP ####[address] [place] [id number])[phone] Director: Samuel Ayers MD MCH (RBC) [Entitic mass] 27.8 pg Normal 25.2-33.5 [facility] Comment on above: Performed By: #### M G, ANURADHA, CP, CDP ####[address] [place], [place] [address])[phone] Director: Samuel Ayers MD MCHC (RBC) [Mass/Vol] 31.1 g/dL Normal 28.4-34.8 [facility] Comment on above: Performed By: #### M G, ANURADHA, CP, CDP ####[address] , [place] [phone] Director: Samuel Ayers MD MCV (RBC) [Entitic vol] 89.4 fL Normal 82.6-102.9 [facility] Comment on above: Performed By: #### M G, ANURADHA, CP, CDP ####[address] , [facility]83[facility])[phone] Director: Samuel Ayers MD Monocytes (Bld) [#/Vol] 0.76 10*3/uL Normal 0.10-1.20 [facility] Comment on above: Performed By: #### M G, ANURADHA, CP, CDP ####[address] , [facility]83[facility])[phone] Director: Samuel Ayers MD Monocytes/100 WBC (Bld) 12 % Normal 3-12 [facility] Comment on above: Performed By: #### M G, ANURADHA, CP, CDP ####[address] , [place] [phone] Director: Samuel Ayers MD Neutrophil (Seg) 44 % Normal 36-65 [facility] Comment on above: Performed By: #### M G, ANURADHA, CP, CDP ####[address] [place] [address] Lab Director: Samuel Ayers MD NRBC Automated 0.0 per [address] [facility] Comment on above: Performed By: #### M G, ANURADHA, CP, CDP ####[address] [place] [address] Lab Director: Samuel Ayers MD Platelet mean volume (Bld) [Entitic vol] 11.1 fL Normal 8.1-13.5 [facility] Comment on above: Performed By: #### M G, ANURADHA, CP, CDP ####[address] , [place] 9296183 Lab Director: Samuel Ayers MD Platelets (Bld) [#/Vol] 233 10*3/uL Normal 138-453 [facility] Comment on above: Performed By: #### M G, ANURADHA, CP, CDP ####[address] [place] [address] Lab Director: Samuel Ayers MD RBC (Bld) [#/Vol] 3.49 10*6/uL Low 3.95-5.11 [facility] Comment on above: Performed By: #### M G, ANURADHA, CP, CDP ####[address] , [place] [phone] Director: Samuel Ayers MD WBC (Bld) [#/Vol] 6.6 10*3/uL Normal 3.5-11.3 [facility] Comment on above: Performed By: #### M G, ANURADHA, CP, CDP ####[address] [place] [address] Lab Director: Samuel Ayers MD Comp Metabolic Profon 2022 Albumin [Mass/Vol] 3.8 g/dL Normal 3.5-5.2 [facility] Comment on above: Performed By: #### M G, ANURADHA, CP, CDP ####[address] , [place] [phone] Director: Samuel Ayers MD Albumin/Glob Ratio 1.2 Normal 1.0-2.5 [facility] Comment on above: Performed By: #### M G, ANURADHA, CP, CDP ####[address] , [place] 2886783 Lab Director: Samuel Ayers MD Alkaline Phos 160 U/L High 35-104 [facility] Comment on above: Performed By: #### M G, ANURADHA, CP, CDP ####[address] , [place] 9745083 Lab Director: Samuel Ayers MD ALT [Catalytic activity/Vol] 83 U/L High 5-33 [facility] Comment on above: Performed By: #### M G, ANURADHA, CP, CDP ####[address] , [place] 3754683 lab Director: Samuel Ayers MD Anion gap [Moles/Vol] 8 mmol/L Low 9-17 [facility] Comment on above: Performed By: #### M G, ANURADHA, CP, CDP ####[address] , [place] 7289483 Lab Director: Samuel Ayesr MD AST [Catalytic activity/Vol] 34 U/L High <32 [facility] Comment on above: Performed By: #### M G, ANURADHA, CP, CDP ####[address] , [place] 4225383 Lab Director: Samuel Ayers MD Bilirubin [Mass/Vol] 0.5 mg/dL Normal 0.3-1.2 [facility] Comment on above: Performed By: #### M G, ANURADHA, CP, CDP ####[address] , [place] 0479983 Lab Director: Samuel Ayers MD BUN/CRE Ratio 41 High 9-20 [facility] Comment on above: Performed By: #### M G, ANURADHA, CP, CDP ####[address] , [place] 4293783 Lab Director: Samuel Ayers MD Calcium [Mass/Vol] 9.1 mg/dL Normal 8.6-10.4 [facility] Comment on above: Performed By: #### M G, ANURADHA, CP, CDP ####[address] , [place] 6716783 Lab Director: Samuel Ayers MD Chloride [Moles/Vol] 106 mmol/L Normal 98-107 [facility] Comment on above: Performed By: #### M G, ANURADHA, CP, CDP ####[address] , [place] 2600883 lab Director: Samuel Ayers MD CO2 [Moles/Vol] 25 mmol/L Normal 20-31 [facility] Comment on above: Performed By: #### M G, ANURADHA, CP, CDP ####[address] , [place] 7042783 lab Director: Samuel Ayers MD Creatinine [Mass/Vol] 0.9 mg/dL Normal 0.5-0.9 [facility] Comment on above: Performed By: #### M G, ANURADHA, CP, CDP ####[address] , [place] 3634483 lab Director: Samuel Ayers MD GFR/1.73 sq M.predicted among non-blacks MDRD (S/P/Bld) [Vol rate/Area] mL/min/{1.73_m2} Normal >60 [facility] Comment on above: Result Comment: Thes e results are not intended for use in patients <18 years of age.eGFR results are calculated without a race factor using the 2020 CKD-EPI equation.Careful clinical correlation is recommended, particularly when comparing to results calculated using previous equations.The CKD-EPI equation is less accurate in patients with extremes of muscle mass, extra-renal metabolism of creatine, excessive creatine ingestion, or following therapy that affects renal tubular secretion. Performed By: #### M G, ANURADHA, CP, CDP ####[address] [place] [address] lab Director: Samuel Ayers MD Glucose [Mass/Vol] 107 mg/dL High 70-99 [facility] Comment on above: Performed By: #### M G, ANURADHA, CP, CDP ####[address] [place] [address] Lab Director: Samuel Ayers MD Potassium [Moles/Vol] 4.6 mmol/L Normal 3.7-5.3 [facility] Comment on above: Performed By: #### M G, ANURADHA, CP, CDP ####[address] [place] [address] Lab Director: Samuel Ayers MD Protein [Mass/Vol] 7.0 g/dL Normal 6.4-8.3 [facility] Comment on above: Performed By: #### M G, ANURADHA, CP, CDP ####[address] , [place] [phone] Director: Samuel Ayers MD Sodium [Moles/Vol] 139 mmol/L Normal 135-144 [facility] Comment on above: Performed By: #### M G, ANURADHA, CP, CDP ####[address] , [place] [phone] Director: Samuel Ayers MD Urea nitrogen [Mass/Vol] 37 mg/dL High 6-20 [facility] Comment on above: Performed By: #### M G, ANURADHA, CP, CDP ####[address] [place] [address] Lab Director: Samuel Ayers MD Magnesiumon 05-22-2023 Magnesium [Mass/Vol] 1.8 mg/dL Normal 1.6-2.6 [facility] Comment on above: Performed By: #### M G, ANURADHA, CP, CDP ####[address] [place] [address] Lab Director: Samuel Ayers MD Phosphorus, Inorg.on 023 Phosphorus, Inorg. 3.2 mg/dL Normal 2.6-4.5 [facility] Comment on above: Performed By: #### M G, ANURADHA, CP, CDP ####[address] [place] [id number] Lab Director: Samuel Ayers MD CNOVon 05-18-2023 CNOV Normal [facility] CBC with Diffon 05-15-2023 Abs. Basophil 0.05 k/uL Normal 0.00-0.20 [facility] Comment on above: Performed By: #### C DP ####[address] , [place] [address])[phone] Director: Samuel Ayers MD Abs.Imm.Granulocyte <0.03 Normal 0.00-0.30 [facility] Comment on above: Performed By: #### C DP ####[address] , [place] [phone] Director: Samuel Ayers MD Abs.Neutrophil (Seg) 3.99 k/uL Normal 1.50-8.10 [facility] Comment on above: Performed By: #### C DP ####[address] , [phone] Director: Samuel Ayers MD Basophils/100 WBC (Bld) 1 % Normal 0-2 [facility] Comment on above: Performed By: #### C DP ####[address] , [place] [phone] Director: Samuel Ayers MD Eosinophils (Bld) [#/Vol] 0.23 10*3/uL Normal 0.00-0.44 [facility] Comment on above: Performed By: #### C DP ####[address] , [place] 0297683 Lab Director: Samuel Ayers MD Eosinophils/100 WBC (Bld) 3 % Normal 1-4 [facility] Comment on above: Performed By: #### C DP ####[address] , [place] [address] [facility] Director: Samuel Ayers MD Erythrocyte distribution width (RBC) [Ratio] 14.7 % High 11.8-14.4 [facility] Comment on above: Performed By: #### C DP ####[address] , [place] [address] Lab Director: Samuel Ayers MD Hematocrit (Bld) [Volume fraction] 30.1 % Low 36.3-47.1 [facility] Comment on above: Performed By: #### C DP ####[address] , [place] [address] [facility] Director: Samuel Ayers MD Hemoglobin (Bld) [Mass/Vol] 9.2 g/dL Low 11.9-15.1 [facility] Comment on above: Performed By: #### C DP ####[address] , [place] [address] Lab Director: Samuel Ayers MD Immature granulocytes/100 WBC (Bld) 0 % Normal 0 [facility] Comment on above: Performed By: #### C DP ####[address] , [place] [address])[phone] Director: Samuel Ayers MD Lymphocytes (Bld) [#/Vol] 2.31 10*3/uL Normal 1.10-3.70 [facility] Comment on above: Performed By: #### C DP ####[address] , [facility]83 Lab Director: Samuel Ayers MD Lymphocytes/100 WBC (Bld) 32 % Normal 24-43 [facility] Comment on above: Performed By: #### C DP ####[address] , [place] 0916583 Lab Director: Samuel Ayers MD MCH (RBC) [Entitic mass] 27.6 pg Normal 25.2-33.5 [facility] Comment on above: Performed By: #### C DP ####[address] , [place] 3478883 lab Director: Samuel Ayers MD MCHC (RBC) [Mass/Vol] 30.6 g/dL Normal 28.4-34.8 [facility] Comment on above: Performed By: #### C DP ####[address] [place] [id number] lab Director: Samuel Ayers MD MCV (RBC) [Entitic vol] 90.4 fL Normal 82.6-102.9 [facility] Comment on above: Performed By: #### C DP ####[address] , [facility]83 lab Director: Samuel Ayers MD Monocytes (Bld) [#/Vol] 0.62 10*3/uL Normal 0.10-1.20 [facility] Comment on above: Performed By: #### C DP ####[address] , [place] 5474083 lab Director: Samuel Ayers MD Monocytes/100 WBC (Bld) 9 % Normal 3-12 [facility] Comment on above: Performed By: #### C DP ####[address] , [place] 9455283 Lab Director: Samuel Ayers MD Neutrophil (Seg) 55 % Normal 36-65 [facility] Comment on above: Performed By: #### C DP ####[address] , [place] [id number] Lab Director: Samuel Ayers MD NRBC Automated 0.0 per [address] [facility] Comment on above: Performed By: #### C DP ####[address] , [place] [address] Lab Director: Samuel Ayers MD Platelet mean volume (Bld) [Entitic vol] 11.1 fL Normal 8.1-13.5 [facility] Comment on above: Performed By: #### C DP ####[address] , [facility]83 Lab Director: Samuel Ayers MD Platelets (Bld) [#/Vol] 243 10*3/uL Normal 138-453 [facility] Comment on above: Performed By: #### C DP ####[address] , [facility]83 Lab Director: Samuel Ayers MD RBC (Bld) [#/Vol] 3.33 10*6/uL Low 3.95-5.11 [facility] Comment on above: Performed By: #### C DP ####[address] , [place] [address] Lab Director: Samuel Ayers MD WBC (Bld) [#/Vol] 7.2 10*3/uL Normal 3.5-11.3 [facility] Comment on above: Performed By: #### C DP ####[address] , [place] [address] [facility])[phone] Director: Samuel Ayers MD CBC with Diffon 05-08-2023 Abs. Basophil 0.07 k/uL Normal 0.00-0.20 [facility] Comment on above: Performed By: #### C DP ####[address] , [place] [id number] Lab Director: Samuel Ayers MD Abs.Imm.Granulocyte <0.03 Normal 0.00-0.30 [facility] Comment on above: Performed By: #### C DP ####[address] , [place] 4501183 Lab Director: Samuel Ayers MD Abs.Neutrophil (Seg) 3.57 k/uL Normal 1.50-8.10 [facility] Comment on above: Performed By: #### C DP ####[address] , [place] 7673183 Lab Director: Samuel Ayers MD Basophils/100 WBC (Bld) 1 % Normal 0-2 [facility] Comment on above: Performed By: #### C DP ####[address] , [place] [address] Lab Director: Samuel Ayers MD Eosinophils (Bld) [#/Vol] 0.25 10*3/uL Normal 0.00-0.44 [facility] Comment on above: Performed By: #### C DP ####[address] , [facility]83 Lab Director: Samuel Ayers MD Eosinophils/100 WBC (Bld) 3 % Normal 1-4 [facility] Comment on above: Performed By: #### C DP ####[address] , [facility]83 Lab Director: Samuel Ayers MD Erythrocyte distribution width (RBC) [Ratio] 15.4 % High 11.8-14.4 [facility] Comment on above: Performed By: #### C DP ####[address] , [facility]83 Lab Director: Samuel Ayers MD Hematocrit (Bld) [Volume fraction] 29.1 % Low 36.3-47.1 [facility] Comment on above: Performed By: #### C DP ####[address] , [facility]83 Lab Director: Samuel Ayers MD Hemoglobin (Bld) [Mass/Vol] 9.1 g/dL Low 11.9-15.1 [facility] Comment on above: Performed By: #### C DP ####[address] , [facility]83[facility])[phone] Director: Samuel Ayers MD Immature granulocytes/100 WBC (Bld) 0 % Normal 0 [facility] Comment on above: Performed By: #### C DP ####[address] , [place] [address])[phone] Director: Samuel Ayers MD Lymphocytes (Bld) [#/Vol] 2.99 10*3/uL Normal 1.10-3.70 [facility] Comment on above: Performed By: #### C DP ####[address] , [place] [address])[phone] Director: Samuel Ayers MD Lymphocytes/100 WBC (d) 40 % Normal 24-43 [facility] Comment on above: Performed By: #### C DP ####[address] , [place] [address])[phone] Director: Samuel Ayers MD MCH (RBC) [Entitic mass] 27.8 pg Normal 25.2-33.5 [facility] Comment on above: Performed By: #### C DP ####[address] , [place] [address])[phone] Director: Samuel Ayers MD MCHC (RBC) [Mass/Vol] 31.3 g/dL Normal 28.4-34.8 [facility] Comment on above: Performed By: #### C DP ####[address] , [facility]47([facility])[phone] Director: Samuel Ayers MD MCV (RBC) [Entitic vol] 89.0 fL Normal 82.6-102.9 [facility] Comment on above: Performed By: #### C DP ####[address] , [place] [phone])[phone] Director: Samuel Ayers MD Monocytes (Bld) [#/Vol] 0.51 10*3/uL Normal 0.10-1.20 [facility] Comment on above: Performed By: #### C DP ####[address] , [place] [phone] Director: Samuel Ayers MD Monocytes/100 WBC (Bld) 7 % Normal 3-12 [facility] Comment on above: Performed By: #### C DP ####[address] , [facility]83419)[phone] Director: Samuel Ayers MD Neutrophil (Seg) 49 % Normal 36-65 [facility] Comment on above: Performed By: #### C DP ####[address] , [facility]83419)[phone] Director: Samuel Ayers MD NRBC Automated 0.0 per [address] [facility] Comment on above: Performed By: #### C DP ####[address] , [place] [phone])[phone] Director: Samuel Ayers MD Platelet mean volume (Bld) [Entitic vol] 10.8 fL Normal 8.1-13.5 [facility] Comment on above: Performed By: #### C DP ####[address] , [place] [phone] Director: Samuel Ayers MD Platelets (Bld) [#/Vol] 302 10*3/uL Normal 138-453 [facility] Comment on above: Performed By: #### C DP ####[address] , [place] [id number])[phone] Director: Samuel Ayers MD RBC (Bld) [#/Vol] 3.27 10*6/uL Low 3.95-5.11 [facility] Comment on above: Performed By: #### C DP ####[address] , [place] 0328183 Lab Director: Samuel Ayers MD WBC (Bld) [#/Vol] 7.4 10*3/uL Normal 3.5-11.3 [facility] Comment on above: Performed By: #### C DP ####[address] , [place] 2514083 Lab Director: Samuel Ayers MD Comp Metabolic Profon 2022 Albumin [Mass/Vol] 4.2 g/dL Normal 3.5-5.2 [facility] Comment on above: Performed By: #### M Leo ANURADHA, CP ####[address] , [place] [address] [facility] Director: Samuel Ayers MD Albumin/Glob Ratio 1.2 Normal 1.0-2.5 [facility] Comment on above: Performed By: #### M Leo ANURADHA, CP ####[address] , [place] 0290983 Lab Director: Samuel Ayers MD Alkaline Phos 264 U/L High 35-104 [facility] Comment on above: Performed By: #### Catherine Bailey ANURADHA, CP ####[address] , [place] 7096083 Lab Director: Samuel Ayers MD ALT [Catalytic activity/Vol] 157 U/L High 5-33 [facility] Comment on above: Performed By: #### M Leo ANURADHA, CP ####[address] , [place] 9528683 Lab Director: Samuel Ayers MD Anion gap [Moles/Vol] 13 mmol/L Normal 9-17 [facility] Comment on above: Performed By: #### M G, ANURADHA, CP ####[address] [place] [address] Lab Director: Samuel Ayers MD AST [Catalytic activity/Vol] 49 U/L High <32 [facility] Comment on above: Performed By: #### M G, ANURADHA, CP ####[address] , [place] [phone] Director: Samuel Ayers MD Bilirubin [Mass/Vol] 0.5 mg/dL Normal 0.3-1.2 [facility] Comment on above: Performed By: #### M G, ANURADHA, CP ####[address] , [place] [phone] Director: Samuel Ayers MD BUN/CRE Ratio 37 High 9-20 [facility] Comment on above: Performed By: #### M G, ANURADHA, CP ####[address] , [place] [id number])[phone] Director: Samuel Ayers MD Calcium [Mass/Vol] 10.1 mg/dL Normal 8.6-10.4 [facility] Comment on above: Performed By: #### M G, ANURADHA, CP ####[address] , [place] [id number])[phone] Director: Samuel Ayers MD Chloride [Moles/Vol] 105 mmol/L Normal 98-107 [facility] Comment on above: Performed By: #### M G, ANURADHA, CP ####[address] , [place] [phone])[phone] Director: Samuel Ayers MD CO2 [Moles/Vol] 22 mmol/L Normal 20-31 [facility] Comment on above: Performed By: #### M G, ANURADHA, CP ####[address] , [place] [phone])[phone] Director: Samuel Ayers MD Creatinine [Mass/Vol] 0.9 mg/dL Normal 0.5-0.9 [facility] Comment on above: Performed By: #### M Leo ANURADHA, CP ####[address] , [place] 6496383 Lab Director: Samuel Ayers MD GFR/1.73 sq M.predicted among non-blacks MDRD (S/P/Bld) [Vol rate/Area] mL/min/{1.73_m2} Normal >60 [facility] Comment on above: Result Comment: Thes e results are not intended for use in patients <18 years of age.eGFR results are calculated without a race factor using the 2020 CKD-EPI equation.Careful clinical correlation is recommended, particularly when comparing to results calculated using previous equations.The CKD-EPI equation is less accurate in patients with extremes of muscle mass, extra-renal metabolism of creatine, excessive creatine ingestion, or following therapy that affects renal tubular secretion. Performed By: #### M Leo, ANURADHA, CP ####[address] [place] [address] Lab Director: Samuel Ayers MD Glucose [Mass/Vol] 113 mg/dL High 70-99 [facility] Comment on above: Performed By: #### M Leo ANURADHA, CP ####[address] , [place] 3932483 Lab Director: Samuel Ayers MD Potassium [Moles/Vol] 4.2 mmol/L Normal 3.7-5.3 [facility] Comment on above: Performed By: #### M G, ANURADHA, CP ####[address] [place] [address] Lab Director: Samuel Ayers MD Protein [Mass/Vol] 7.8 g/dL Normal 6.4-8.3 [facility] Comment on above: Performed By: #### M Leo, ANURADHA, CP ####[address] [place] [address] lab Director: Samuel Ayers MD Sodium [Moles/Vol] 140 mmol/L Normal 135-144 [facility] Comment on above: Performed By: #### M Leo, ANURADHA, CP ####[facility] [place] [address] lab Director: Samuel Ayers MD Urea nitrogen [Mass/Vol] 33 mg/dL High 6-20 [facility] Comment on above: Performed By: #### M Leo, ANURADHA, CP ####[facility] [place] [address] lab Director: Samuel Ayers MD Comprehensive Metabolic Pane [facility] 05-04-2023 Albumin [Mass/Vol] 4.2 g/dL 3.5 - 5.2 g/dL [facility] Albumin/Globulin [Mass ratio] 1.2 {ratio} 1.0 - 2.5 [facility] ALP [Catalytic activity/Vol] 264 U/L High 35 - 104 U/L [facility] ALT [Catalytic activity/Vol] 157 U/L High 5 - 33 U/L [facility] Anion gap [Moles/Vol] 13 mmol/L 9 - 17 mmol/L [facility] AST [Catalytic activity/Vol] 49 U/L High NINF - 32 U/L [facility] Bilirubin [Mass/Vol] 0.5 mg/dL 0.3 - 1 .2 mg/dL [facility] Calcium [Mass/Vol] 10.1 mg/dL 8.6 - 10. 4 mg/dL [facility] Chloride [Moles/Vol] 105 mmol/L 98 - 10 7 mmol/L [facility] CO2 [Moles/Vol] 22 mmol/L 20 - 31 mmol/L [facility] Creatinine [Mass/Vol] 0.9 mg/dL 0.5 - 0.9 mg/dL [facility] GFR/1.73 sq M.predicted MDRD (S/P/Bld) [Vol rate/Area] - PINF [facility] Comment on above: These results are not intended for use in patients <18 years of age. eGFR results are calculated without a race factor using the 2020 CKD-EPI equation. Careful clinical correlation is recommended, particularly when comparing to results calculated using previous equations. The CKD-EPI equation is less accurate in patients with extremes of muscle mass, extra-renal metabolism of creatine, excessive creatine ingestion, or following therapy that affects renal tubular secretion. Glucose [Mass/Vol] 113 mg/dL High 70 - 99 mg/dL [facility] Interpretation and review of laboratory results Abnormal [facility] Potassium [Moles/Vol] 4.2 mmol/L 3.7 - 5.3 mmol/L [facility] Protein [Mass/Vol] 7.8 g/dL 6.4 - 8.3 g/dL [facility] Sodium [Moles/Vol] 140 mmol/L 135 - 144 mmol/L [facility] Urea nitrogen [Mass/Vol] 33 mg/dL High 6 - 20 mg/dL [facility] Urea nitrogen/Creatinine [Mass ratio] 37 mg/mg High 9 - 20 [facility] Magnesiumon 05-04-2023 Magnesium [Mass/Vol] 1.8 mg/dL Normal 1.6-2.6 [facility] Comment on above: Performed By: #### ANURADHA Oconnell, CP ####[facility] [place] [address] lab Director: Samuel Ayers MD Magnesium [Mass/Vol] 1.8 mg/dL 1.6 - 2 .6 mg/dL [facility] No Panel Informationon 05-04 [facility] Phosphoruson 05-04-2023 Phosphate [Mass/Vol] 3.4 mg/dL 2.6 - 4 .5 mg/dL [facility] Phosphorus, Inorg.on 023 Phosphorus, Inorg. 3.4 mg/dL Normal 2.6-4.5 [facility] Comment on above: Performed By: #### ANURADHA Oconnell, CP ####[facility] [place] [address] lab Director: Samuel Ayers MD CBC with Diffon 05-01-2023 Abs. Basophil 0.04 k/uL Normal 0.00-0.20 [facility] Comment on above: Performed By: #### C DP ####[address] , [facility]83[facility])[phone] Director: Samuel Ayers MD Abs.Imm.Granulocyte <0.03 Normal 0.00-0.30 [facility] Comment on above: Performed By: #### C DP ####[address] , [place] [address])[phone] Director: Samuel Ayers MD Abs.Neutrophil (Seg) 2.72 k/uL Normal 1.50-8.10 [facility] Comment on above: Performed By: #### C DP ####[address] , [place] [address])[phone] Director: Samuel Ayers MD Basophils/100 WBC (Bld) 1 % Normal 0-2 [facility] Comment on above: Performed By: #### C DP ####[address] , [place] [address])[phone] Director: Samuel Ayers MD Eosinophils (Bld) [#/Vol] 0.26 10*3/uL Normal 0.00-0.44 [facility] Comment on above: Performed By: #### C DP ####[address] , [facility]83[facility])[phone] Director: Samuel Ayers MD Eosinophils/100 WBC (Bld) 4 % Normal 1-4 [facility] Comment on above: Performed By: #### C DP ####[address] , [facility]37([facility])[phone] Director: Samuel Ayers MD Erythrocyte distribution width (RBC) [Ratio] 15.5 % High 11.8-14.4 [facility] Comment on above: Performed By: #### C DP ####[address] , [place] 723[address]83 Lab Director: Samuel Ayers MD Hematocrit (Bld) [Volume fraction] 28.7 % Low 36.3-47.1 [facility] Comment on above: Performed By: #### C DP ####[address] , [facility]83 Lab Director: Samuel Ayers MD Hemoglobin (Bld) [Mass/Vol] 9.1 g/dL Low 11.9-15.1 [facility] Comment on above: Performed By: #### C DP ####[address] , [facility]83 Lab Director: Samuel Ayers MD Immature granulocytes/100 WBC (Bld) 0 % Normal 0 [facility] Comment on above: Performed By: #### C DP ####[address] , [facility]83 Lab Director: Samuel Ayers MD Lymphocytes (Bld) [#/Vol] 2.57 10*3/uL Normal 1.10-3.70 [facility] Comment on above: Performed By: #### C DP ####[address] , [place] 7619[address] Lab Director: Samuel Ayers MD Lymphocytes/100 WBC (Bld) 41 % Normal 24-43 [facility] Comment on above: Performed By: #### C DP ####[address] , [place] 1782583 Lab Director: Samuel Ayers MD MCH (RBC) [Entitic mass] 28.3 pg Normal 25.2-33.5 [facility] Comment on above: Performed By: #### C DP ####[address] , [place] 9496[address] Lab Director: Samuel Ayers MD MCHC (RBC) [Mass/Vol] 31.7 g/dL Normal 28.4-34.8 [facility] Comment on above: Performed By: #### C DP ####[address] [place] [address] Lab Director: Samuel Ayers MD MCV (RBC) [Entitic vol] 89.4 fL Normal 82.6-102.9 [facility] Comment on above: Performed By: #### C DP ####[address] [place] [address] Lab Director: Samuel Ayers MD Monocytes (Bld) [#/Vol] 0.69 10*3/uL Normal 0.10-1.20 [facility] Comment on above: Performed By: #### C DP ####[address] , [facility]83[facility])[phone] Director: Samuel Ayers MD Monocytes/100 WBC (Bld) 11 % Normal 3-12 [facility] Comment on above: Performed By: #### C DP ####[address] , [facility]83419)[phone] Director: Samuel Ayers MD Neutrophil (Seg) 43 % Normal 36-65 [facility] Comment on above: Performed By: #### C DP ####[address] , [facility]83[facility])[phone] Director: Samuel Ayers MD NRBC Automated 0.0 per [address] [facility] Comment on above: Performed By: #### C DP ####[address] , [facility]83 Lab Director: Samuel Ayers MD Platelet mean volume (Bld) [Entitic vol] 10.6 fL Normal 8.1-13.5 [facility] Comment on above: Performed By: #### C DP ####[facility] [place] , [place] [address]1783 Lab Director: Samuel Ayers MD Platelets (Bld) [#/Vol] 368 10*3/uL Normal 138-453 [facility] Comment on above: Performed By: #### C DP ####[facility] [place] , [place] 1900483 Lab Director: Samuel Ayers MD RBC (Bld) [#/Vol] 3.21 10*6/uL Low 3.95-5.11 [facility] Comment on above: Performed By: #### C DP ####[facility] [place] , [place] 9656883 Lab Director: Samuel Ayers MD WBC (Bld) [#/Vol] 6.3 10*3/uL Normal 3.5-11.3 [facility] Comment on above: Performed By: #### C DP ####[address] , [place] 1658683 Lab Director: Samuel Ayers MD CNPNon 05-01-2023 CNPN Normal [facility] Vitamin B6on 05-01-2023 Vitamin B6 335.4 nmol/L High 20.0-125.0 [facility] Comment on above: Result Comment: (NOT E)INTERPRETIVE INFORMATION: Vitamin B6 (Pyridoxal 5-Phosphate)Pyridoxal 5'-phosphate measured in a specimen collected followingan 8-hour or overnight fast accurately indicates vitamin F7gmqchcoecvk status. Non-fasting specimen concentration reflectsrecent vitamin intake.This test was developed and its performance characteristicsdetermined by [facility]. It has not been cleared orapproved by the [place] Food and Drug Administration. This test wasperformed in a CLIA certified laboratory and is intended forclinical purposes.Performed By: [facility] [place] [id number] Director: Kyle Ledesma MD, PhD Performed By: #### A VITB6 ####[address] [address] lab Director: Alfonso Perez MD Specimen Rejectionon 023 Reason for rejection Unable to perform t esting: Specimen collected in wrong container. [facility] Comment on above: Performed By: #### R EJEC ####[facility] [place] [address] Lab Director: Samuel Ayers MD Source of sample .BLOOD [facility] Comment on above: Performed By: #### R EJEC ####[facility] [place] [address] lab Director: Samuel Ayers MD Test ordered [address] Comment on above: Performed By: #### R EJEC ####[facility] [place] [address] [facility] Director: Samuel Ayers MD [facility]2023 [employer] [facility] Normal [facility] Basic metabolic 2000 panelon 04-23-2023 Anion gap [Moles/Vol] 8 mmol/L Low 9-18 [facility] Comment on above: Order Comment: Speci men Type: BLOOD SPECIMENOrdering Facility: [facility] Address: [address] [place], [place] [address] Performed By: #### 1 988-5, 20729-2, 2777-, 36112-0 ####[facility] LABCLIA [id number] [facility] [place] [address] [place] Calcium [Mass/Vol] 8.4 mg/dL Low 8.5-10.[address] [facility] Comment on above: Order Comment: Speci men Type: BLOOD SPECIMENOrdering Facility: [facility] Address: [address] [place], [place] [address] Performed By: #### 1 988-5, 36523-8, 2777-, 20467-7 ####[facility] LABCLIA [id number] [place] [address] [place] Chloride [Moles/Vol] 110 mmol/L High 97-105 [facility] Comment on above: Order Comment: Speci men Type: BLOOD SPECIMENOrdering Facility: [facility] Address: [address] [place] [address] Performed By: #### 1 988-5, 88685-9, 2777-, 28480-8 ####[facility] LABIA [id number] [place] [address] [place] CO2 [Moles/Vol] 24 mmol/L Normal 22-30 [facility] Comment on above: Order Comment: Speci men Type: BLOOD SPECIMENOrdering Facility: [facility] Address: [address] [place] [address] Performed By: #### 1 988-5, 79387-0, 2777-, 44051-0 ####[facility] LABIA [id number] [place] [address] [place] Creatinine [Mass/Vol] 1.03 mg/dL High 0.58-0.96 [facility] Comment on above: Order Comment: Speci men Type: BLOOD SPECIMENOrdering Facility: [facility] Address: [address] [place] [address] Performed By: #### 1 988-5, 10459-9, 2777-, 87548-4 ####[facility] LABIA [id number] [place] [address] [place] ESTIMATED GLOMERULAR FILTRATION RATE 64 mL/min/1.73m??? Normal >=60 [facility] Comment on above: Order Comment: Speci men Type: BLOOD SPECIMENOrdering Facility: [facility] Address: [address] [place] [address] Result Comment: Karen mated Glomerular Filtration Rate (eGFR) is calculated using the 2020 CKD-EPI creatinine equation. This equation utilizes serum creatinine, sex, and age as parameters. The creatinine assay has traceable calibration to isotope dilution-mass spectrometry. Refer to KDIGO guidelines for clinical interpretation. In patients with unstable renal function, e.g. those with acute kidney injury, the eGFR may not accurately reflect actual GFR. Performed By: #### 1 988-5, 96589-8, 2776-10, 87477-6 ####[facility] LABCLIA [id number] [place] [address] [place] Glucose [Mass/Vol] 131 mg/dL High 74-[address] [facility] Comment on above: Order Comment: Matti bernal Type: BLOOD SPECIMENOrdering Facility: [facility] Address: [address] [place] [address] Result Comment: The [place] Diabetes Association (ADA) provides guidance for cutoff values for fasting glucose and random glucose. The ADA defines fasting as no caloric intake for at least 8 hours. Fasting plasma glucose results between 100 to 125 mg/dL indicate increased risk for diabetes (prediabetes).Fasting plasma glucose results greater than or equal to 126 mg/dL meet the criteria for diagnosis of diabetes. In the absence of unequivocal hyperglycemia, results should be confirmed by repeat testing. In a patient with classic symptoms of hyperglycemia or hyperglycemic crisis, random plasma glucose results greater than or equal to 200 mg/dL meet the criteria for diagnosis of diabetes.Reference: Standards of Medical Care in Diabetes 2016, [place] Diabetes Association. Diabetes Care. 2016.39(Suppl 1). Performed By: #### 1 988-5, , 2776-10, 27728-7 ####[facility] LABCLIA [id number] [place] [address] [place] Potassium [Moles/Vol] 3.6 mmol/L Low 3.7-5.1 [facility] Comment on above: Order Comment: Matti bernal Type: BLOOD SPECIMENOrdering Facility: [facility] Address: [address] [place] [address] Performed By: #### 1 988-5, , 2776-10, 69641-1 ####[facility] LABCLIA [id number] [place] [address] [place] Sodium [Moles/Vol] 142 mmol/L Normal 136-[address] [facility] Comment on above: Order Comment: Speci men Type: BLOOD SPECIMENOrdering Facility: [facility] Address: [address] [place] [address] Performed By: #### 1 988-5, 40021-1, 2777-1, 75975-5 ####[facility] LABCLIA [id number] [place] [address] [place] Urea nitrogen [Mass/Vol] 25 mg/dL High 7-21 [facility] Comment on above: Order Comment: Speci men Type: BLOOD SPECIMENOrdering Facility: [facility] Address: [address] [place] [address] Performed By: #### 1 988-5, 38643-2, 2777-, 87483-8 ####[facility] LABCLIA [id number] [place] [address] [place] CASE MANAGEMon 04-23-2023 CASE MANAGEM Normal [facility] CNDSon 04-23-2023 CNDS Normal [facility] CRP SerPl-mCncon 04-23-2023 CRP [Mass/Vol] 1.8 mg/dL High <0.9 [facility] Comment on above: Order Comment: Speci men Type: BLOOD SPECIMENOrdering Facility: [facility] Address: [address] [place], [place] [address] Performed By: #### 1 988-5, 02401-3, 2777-, 57539-0 ####[facility] LABCLIA [id number] [place] [id number] [place] Magnesium SerPl-mCncon 04-23 Magnesium [Mass/Vol] 1.7 mg/dL Normal 1.7-2.3 [facility] Comment on above: Order Comment: Speci men Type: BLOOD SPECIMENOrdering Facility: [facility] Address: [address] [place], [place] [address] [phone] Performed By: #### 1 988-5, , 2776-10, ####[facility] LABCLIA [id number] [address] [address] [place] Phosphate SerPl-mCncon 04-23 Phosphate [Mass/Vol] 3.4 mg/dL Normal 2.7-4.8 [facility] Comment on above: Order Comment: Speci men Type: BLOOD SPECIMENOrdering Facility: [facility] Address: [address] Result Comment: Resu lt rechecked. Performed By: #### 1 988-5, , 2776-10, ####[facility] LABCLIA [id number] [place] [address] [place] Basic metabolic 2000 panelon 04-22-2023 Anion gap [Moles/Vol] 10 mmol/L Normal 9-18 [facility] Comment on above: Order Comment: Speci men Type: BLOOD SPECIMENOrdering Facility: [facility] Address: [place] [address] Performed By: #### 1 9123, 1988-02, 2776-10, ####[facility] LABCLIA [id number] [place] [id number] [place] Calcium [Mass/Vol] 8.9 mg/dL Normal 8.5-10.[address] [facility] Comment on above: Order Comment: Speci men Type: BLOOD SPECIMENOrdering Facility: [facility] Address: [address] Performed By: #### 1 91239, 1988-02, 2776-10, ####[facility] LABCLIA [id number] [place] [id number] [place] Chloride [Moles/Vol] 108 mmol/L High 97-105 [facility] Comment on above: Order Comment: Speci men Type: BLOOD SPECIMENOrdering Facility: [facility] Address: [address] [place], [place] [address] Performed By: #### 1 9123-06, 1988-02, 2776-10, ####[facility] LABIA [id number] [place] [address] [place] CO2 [Moles/Vol] 25 mmol/L Normal 22-30 [facility] Comment on above: Order Comment: Speci men Type: BLOOD SPECIMENOrdering Facility: [facility] Address: [address] [place], [place] [address] Performed By: #### 1 9123-06, 1988-02, 2776-10, ####[facility] [id number] [place] [address] [place] Creatinine [Mass/Vol] 1.11 mg/dL High 0.58-0.96 [facility] Comment on above: Order Comment: Speci men Type: BLOOD SPECIMENOrdering Facility: [facility] Address: [address] [place], [place] [address] Performed By: #### 1 9123-06, 1988-02, 2776-10, ####[facility] [id number] [place] [address] [place] ESTIMATED GLOMERULAR FILTRATION RATE 58 mL/min/1.73m??? Low >=60 [facility] Comment on above: Order Comment: Speci men Type: BLOOD SPECIMENOrdering Facility: [facility] Address: [address] [place], [place] [address] Result Comment: Karen mated Glomerular Filtration Rate (eGFR) is calculated using the 2020 CKD-EPI creatinine equation. This equation utilizes serum creatinine, sex, and age as parameters. The creatinine assay has traceable calibration to isotope dilution-mass spectrometry. Refer to KDIGO guidelines for clinical interpretation. In patients with unstable renal function, e.g. those with acute kidney injury, the eGFR may not accurately reflect actual GFR. Performed By: #### 1 91231988-02, 2776-10, ####[facility] LABCLIA [id number] [address] [address] [place] Glucose [Mass/Vol] 137 mg/dL High 74-[address] [facility] Comment on above: Order Comment: Matti benral Type: BLOOD SPECIMENOrdering Facility: [facility] Address: [address] [place] [address] Result Comment: The [place] Diabetes Association (ADA) provides guidance for cutoff values for fasting glucose and random glucose. The ADA defines fasting as no caloric intake for at least 8 hours. Fasting plasma glucose results between 100 to 125 mg/dL indicate increased risk for diabetes (prediabetes).Fasting plasma glucose results greater than or equal to 126 mg/dL meet the criteria for diagnosis of diabetes. In the absence of unequivocal hyperglycemia, results should be confirmed by repeat testing. In a patient with classic symptoms of hyperglycemia or hyperglycemic crisis, random plasma glucose results greater than or equal to 200 mg/dL meet the criteria for diagnosis of diabetes.Reference: Standards of Medical Care in Diabetes 2016, [place] [employer]. Diabetes Care. 2016.39(Suppl 1). Performed By: #### 1 1988-02, 2776-10, ####[facility] LABCLIA [id number] [facility] [address] [address] [place] Potassium [Moles/Vol] 3.9 mmol/L Normal 3.7-5.1 [facility] Comment on above: Order Comment: Matti bernal Type: BLOOD SPECIMENOrdering Facility: [facility] Address: [address] [place] [address] Performed By: #### 1 91231988-02, 2776-10, ####[facility] LABCLIA [id number] [address] [address] [place] Sodium [Moles/Vol] 143 mmol/L Normal 136-[address] [facility] Comment on above: Order Comment: Speci men Type: BLOOD SPECIMENOrdering Facility: [facility] Address: [address] [place] [address] Performed By: #### 1 9123-9, 1988-02, 2776-10, 12615-2 ####[facility] LABCLIA [id number] [place] [address] [place] Urea nitrogen [Mass/Vol] 21 mg/dL Normal 7-21 [facility] Comment on above: Order Comment: Speci men Type: BLOOD SPECIMENOrdering Facility: [facility] Address: [address] [place] [address] Performed By: #### 1 91239, 1988-02, 2776-10, ####[facility] LABCLIA [id number] [place] [address] [place] CASE MANAGEMon 04-22-2023 CASE MANAGEM Normal [facility] CBC W Auto Differential pane l (Bld)on 04-22-2023 Basophils (Bld) [#/Vol] 0.05 10*3/uL Normal <0.11 [facility] Comment on above: Order Comment: Speci men Type: BLOOD SPECIMENOrdering Facility: [facility] Address: [address] [place] [address] Performed By: #### 5 7021-8 ####[facility] LABCLIA [id number] [place] [address] [place] Basophils/100 WBC (Bld) 0.7 % Normal [facility] Comment on above: Order Comment: Speci men Type: BLOOD SPECIMENOrdering Facility: [facility] Address: [address] [place] [address] Performed By: #### 5 7021-8 ####[facility] LABCLIA [id number] [place] [address] [place] Differential cell count method Nom (Bld) Auto Normal [facility] Comment on above: Order Comment: Speci men Type: BLOOD SPECIMENOrdering Facility: [facility] Address: [address] [place] [address] Performed By: #### 5 7021-8 ####[facility] LABCLIA [id number] [place] [address] [place] Eosinophils (Bld) [#/Vol] 0.19 10*3/uL Normal <0.46 [facility] Comment on above: Order Comment: Speci men Type: BLOOD SPECIMENOrdering Facility: [facility] Address: [address] [place] [address] Performed By: #### 5 7021-8 ####[facility] LABCLIA [id number] [place] [address] [place] Eosinophils/100 WBC (Bld) 2.5 % Normal [facility] Comment on above: Order Comment: Speci men Type: BLOOD SPECIMENOrdering Facility: [facility] Address: [address] [place], [place] [address] Performed By: #### 5 7021-8 ####[facility] LABCLIA [id number] [place] [address] [place] Erythrocyte distribution width (RBC) [Ratio] 16.9 % High 11.5-15.0 [facility] Comment on above: Order Comment: Speci men Type: BLOOD SPECIMENOrdering Facility: [facility] Address: [address] Performed By: #### 5 7021-8 ####[facility] LABCLIA [id number] [place] [address] [place] Hematocrit (Bld) [Volume fraction] 29.9 % Low 36.0-46.0 [facility] Comment on above: Order Comment: Speci men Type: BLOOD SPECIMENOrdering Facility: [facility] Address: [address] [place], [place] [address] Performed By: #### 5 7021-8 ####[facility] LABCLIA [id number] [place] [address] [place] Hemoglobin (Bld) [Mass/Vol] 9.1 g/dL Low 11.5-15.5 [facility] Comment on above: Order Comment: Speci men Type: BLOOD SPECIMENOrdering Facility: [facility] Address: [address] [place], [place] [address] Performed By: #### 5 7021-8 ####[facility] LABCLIA [id number] [place] [address] [place] Immature granulocytes (Bld) [#/Vol] 10*3/uL Normal <0.10 [facility] Comment on above: Order Comment: Speci men Type: BLOOD SPECIMENOrdering Facility: [facility] Address: [address] [place], [place] [address] Performed By: #### 5 7021-8 ####[facility] LABIA [id number] [place] [address] [place] Immature granulocytes/100 WBC (Bld) 0.3 % Normal [facility] Comment on above: Order Comment: Speci men Type: BLOOD SPECIMENOrdering Facility: [facility] Address: [address] [place], [place] [address] Performed By: #### 5 7021-8 ####[facility] LABIA [id number] [place] [address] [place] Lymphocytes (Bld) [#/Vol] 2.01 10*3/uL Normal 1.00-4.00 [facility] Comment on above: Order Comment: Speci men Type: BLOOD SPECIMENOrdering Facility: [facility] Address: [address] [place] [address] Performed By: #### 5 7021-8 ####[facility] LABIA [id number] [place] [address] [place] Lymphocytes/100 WBC (Bld) 26.3 % Normal [facility] Comment on above: Order Comment: Speci men Type: BLOOD SPECIMENOrdering Facility: [facility] Address: [address] [place], [place] [address] Performed By: #### 5 7021-8 ####[facility] LABCLIA [id number] [address] STATES [place] [facility] MCH (RBC) [Entitic mass] 27.6 pg Normal 26.0-34.0 [facility] Comment on above: Order Comment: Speci men Type: BLOOD SPECIMENOrdering Facility: [facility] Address: [address] [place], [place] [address] Performed By: #### 5 7021-8 ####[facility] LABCLIA [id number] [address] [place] MCHC (RBC) [Mass/Vol] 30.4 g/dL Low 30.5-36.0 [facility] Comment on above: Order Comment: Speci men Type: BLOOD SPECIMENOrdering Facility: [facility] Address: [address] [place], [place] [address] Performed By: #### 5 7021-8 ####[facility] LABCLIA [id number] [address] [place] MCV (RBC) [Entitic vol] 90.6 fL Normal 80.0-100.0 [facility] Comment on above: Order Comment: Speci men Type: BLOOD SPECIMENOrdering Facility: [facility] Address: [address] [place], [place] [address] Performed By: #### 5 7021-8 ####[facility] LABCLIA [id number] [address] [place] Monocytes (Bld) [#/Vol] 0.71 10*3/uL Normal <0.87 [facility] Comment on above: Order Comment: Speci men Type: BLOOD SPECIMENOrdering Facility: [facility] Address: [address] Performed By: #### 5 7021-8 ####[facility] LABCLIA [id number] [place] [address] [place] Monocytes/100 WBC (Bld) 9.3 % Normal [facility] Comment on above: Order Comment: Speci men Type: BLOOD SPECIMENOrdering Facility: [facility] Address: [address] Performed By: #### 5 7021-8 ####[facility] LABCLIA [id number] [place] [address] [place] Neutrophils (Bld) [#/Vol] 4.66 10*3/uL Normal 1.45-7.50 [facility] Comment on above: Order Comment: Speci men Type: BLOOD SPECIMENOrdering Facility: [facility] Address: [address] Performed By: #### 5 7021-8 ####[facility] LABCLIA [id number] [place] [address] [place] Neutrophils/100 WBC (Bld) 60.9 % Normal [facility] Comment on above: Order Comment: Speci men Type: BLOOD SPECIMENOrdering Facility: [facility] Address: [address] Performed By: #### 5 7021-8 ####[facility] LABCLIA [id number] [place] [address] [place] Nucleated RBC (Bld) [#/Vol] 10*3/uL Normal <0.01 [facility] Comment on above: Order Comment: Speci men Type: BLOOD SPECIMENOrdering Facility: [facility] Address: [address] Performed By: #### 5 7021-8 ####[facility] LABCLIA [id number] [place] [address] [place] Nucleated RBC/100 WBC (Bld) [Ratio] 0.0 /100 WBC Normal [facility] Comment on above: Order Comment: Speci men Type: BLOOD SPECIMENOrdering Facility: [facility] Address: [address] [place] [address] Performed By: #### 5 7021-8 ####[facility] LABIA [id number] [place] [address] [place] Platelet mean volume (Bld) [Entitic vol] 10.6 fL Normal 9.0-12.7 [facility] Comment on above: Order Comment: Speci men Type: BLOOD SPECIMENOrdering Facility: [facility] Address: [address] [place] [address] Performed By: #### 5 7021-8 ####[facility] LABIA [id number] [place] [address] [place] Platelets (Bld) [#/Vol] 283 10*3/uL Normal 150-400 [facility] Comment on above: Order Comment: Speci men Type: BLOOD SPECIMENOrdering Facility: [facility] Address: [address] [place], [place] [address] Performed By: #### 5 7021-8 ####[facility] LABIA [id number] [place] [address] [place] RBC (Bld) [#/Vol] 3.30 10*6/uL Low 3.90-5.20 [facility] Comment on above: Order Comment: Speci men Type: BLOOD SPECIMENOrdering Facility: [facility] Address: [address] [place], [place] [address] Performed By: #### 5 7021-8 ####[facility] LABCLIA [id number] [place] [address] [place] WBC (Bld) [#/Vol] 7.64 10*3/uL Normal 3.70-11.00 [facility] Comment on above: Order Comment: Speci men Type: BLOOD SPECIMENOrdering Facility: [facility] Address: [address] [place] [address] Performed By: #### 5 7021-8 ####[facility] LABCLIA [id number] [place] [address] [place] CONSULT PROGon 04-22-2023 CONSULT PROG Normal [facility] CRP SerPl-mCncon 04-22-2023 CRP [Mass/Vol] 1.6 mg/dL High <0.9 [facility] Comment on above: Order Comment: Speci men Type: BLOOD SPECIMENOrdering Facility: [facility] Address: [address] [place] [address] Performed By: #### 1 91239, 1988-02, 2776-10, ####[facility] LABCLIA [id number] [place] [address] [place] Magnesium SerPl-mCncon 04-22 Magnesium [Mass/Vol] 1.8 mg/dL Normal 1.7-2.3 [facility] Comment on above: Order Comment: Speci men Type: BLOOD SPECIMENOrdering Facility: [facility] Address: [address] [place] [address] Performed By: #### 1 9123-9, 1988-02, 2776-10, ####[facility] LABCLIA [id number] [place] [address] [place] Phosphate SerPl-mCncon 04-22 Phosphate [Mass/Vol] 1.6 mg/dL Low 2.7-4.8 [facility] Comment on above: Order Comment: Speci men Type: BLOOD SPECIMENOrdering Facility: [facility] Address: [address] [place] [address] Performed By: #### 1 9123-9, 1988-02, 2776-10, 96056-8 ####[facility] LABCLIA [id number] [address] [address] [place] Basic metabolic 2000 panelon 04-21-2023 Anion gap [Moles/Vol] 17 mmol/L Normal 9-18 [facility] Comment on above: Order Comment: Speci men Type: BLOOD SPECIMENOrdering Facility: [facility] Address: [address] [place], [place] [address] Performed By: #### 2 4320-, 1988-02, HSTNT, 2776-10, ####[facility] LABCLIA [id number] [place] [id number] [place] Calcium [Mass/Vol] 9.0 mg/dL Normal 8.5-10.[address] [facility] Comment on above: Order Comment: Speci men Type: BLOOD SPECIMENOrdering Facility: [facility] Address: [address] [place], [place] [address] Performed By: #### 2 4320-11, 1988-02, HSTNT, 2776-10, ####[facility] LABIA [id number] [place] [id number] [place] Chloride [Moles/Vol] 95 mmol/L Low 97-105 [facility] Comment on above: Order Comment: Speci men Type: BLOOD SPECIMENOrdering Facility: [facility] Address: [address] [place], [place] [phone] Performed By: #### 2 4320-, 1988-02, HSTNT, 2776-10, ####[facility] LABIA [id number] [address] [address] [place] CO2 [Moles/Vol] 25 mmol/L Normal 22-30 [facility] Comment on above: Order Comment: Speci men Type: BLOOD SPECIMENOrdering Facility: [facility] Address: [address] [place], [place] [address] Performed By: #### 2 4320-, 1988-02, HSTNT, 2776-10, ####[facility] LABIA [id number] [address] [address] [place] Creatinine [Mass/Vol] 1.71 mg/dL High 0.58-0.96 [facility] Comment on above: Order Comment: Speci men Type: BLOOD SPECIMENOrdering Facility: [facility] Address: [address] [place], [place] [address] Performed By: #### 2 4320-, 1988-02, HSTNT, 2776-10, ####[facility] LABIA [id number] [place] ESTIMATED GLOMERULAR FILTRATION RATE 35 mL/min/1.73m??? Low >=60 [facility] Comment on above: Order Comment: Speci men Type: BLOOD SPECIMENOrdering Facility: [facility] Address: [address] [place], [place] [address] Result Comment: Karen mated Glomerular Filtration Rate (eGFR) is calculated using the 2020 CKD-EPI creatinine equation. This equation utilizes serum creatinine, sex, and age as parameters. The creatinine assay has traceable calibration to isotope dilution-mass spectrometry. Refer to KDIGO guidelines for clinical interpretation. In patients with unstable renal function, e.g. those with acute kidney injury, the eGFR may not accurately reflect actual GFR. Performed By: #### 2 4320-11, 1988-02, HSTNT, 2776-10, ####[facility] LABIA [id number] [address] [address] [place] Glucose [Mass/Vol] 125 mg/dL High 74-[address] [facility] Comment on above: Order Comment: Speci men Type: BLOOD SPECIMENOrdering Facility: [facility] Address: [address] [place], [place] [address] Result Comment: The [place] Diabetes [employer] (ADA) provides guidance for cutoff values for fasting glucose and random glucose. The ADA defines fasting as no caloric intake for at least 8 hours. Fasting plasma glucose results between 100 to 125 mg/dL indicate increased risk for diabetes (prediabetes).Fasting plasma glucose results greater than or equal to 126 mg/dL meet the criteria for diagnosis of diabetes. In the absence of unequivocal hyperglycemia, results should be confirmed by repeat testing. In a patient with classic symptoms of hyperglycemia or hyperglycemic crisis, random plasma glucose results greater than or equal to 200 mg/dL meet the criteria for diagnosis of diabetes.Reference: Standards of Medical Care in Diabetes 2016, [place] [employer]. Diabetes Care. 2016.39(Suppl 1). Performed By: #### 2 4320-11, 1988-02, HSTNT, 2776-10, ####[facility] LABIA [id number] [place] [address] [place] Potassium [Moles/Vol] 4.2 mmol/L Normal 3.7-5.1 [facility] Comment on above: Order Comment: Speci men Type: BLOOD SPECIMENOrdering Facility: [facility] Address: [address] [place] [phone] Performed By: #### 2 4320-11, 1988-02, HSTNT, 2776-10, ####[facility] [id number] [place] [address] [place] Sodium [Moles/Vol] 137 mmol/L Normal 136-[address] [facility] Comment on above: Order Comment: Speci men Type: BLOOD SPECIMENOrdering Facility: [facility] Address: [address] [place] [phone] Performed By: #### 2 4320-11, 1988-02, HSTNT, ####[facility] [id number] [place] [address] [place] Urea nitrogen [Mass/Vol] 32 mg/dL High 7-21 [facility] Comment on above: Order Comment: Speci men Type: BLOOD SPECIMENOrdering Facility: [facility] Address: [address] [place] [address] Performed By: #### 2 4321-2, 1988-5, HSTNT, 2777-1, 28248-7 ####[facility] LABCLIA [id number] [place] [address] [place] CASE MGT INIT ASSESon 2022 CASE MGT INIT ASSES Normal [facility] CBC W Auto Differential pane l (Bld)on 04-21-2023 Basophils (Bld) [#/Vol] 0.04 10*3/uL Normal <0.11 [facility] Comment on above: Order Comment: Speci men Type: BLOOD SPECIMENOrdering Facility: [facility] Address: [address] [place] [address] Performed By: #### 5 7021-8 ####[facility] LABCLIA [id number] [place] [address] [place] Basophils/100 WBC (Bld) 0.5 % Normal [facility] Comment on above: Order Comment: Speci men Type: BLOOD SPECIMENOrdering Facility: [facility] Address: [address] [place] [address] Performed By: #### 5 7021-8 ####[facility] LABCLIA [id number] [place] [address] [place] Differential cell count method Nom (Bld) Auto Normal [facility] Comment on above: Order Comment: Speci men Type: BLOOD SPECIMENOrdering Facility: [facility] Address: [address] [place] [address] Performed By: #### 5 7021-8 ####[facility] LABCLIA [id number] [place] [address] [place] Eosinophils (Bld) [#/Vol] 0.09 10*3/uL Normal <0.46 [facility] Comment on above: Order Comment: Speci men Type: BLOOD SPECIMENOrdering Facility: [facility] Address: [address] Performed By: #### 5 7021-8 ####[facility] LABCLIA [id number] [place] [address] [place] Eosinophils/100 WBC (Bld) 1.2 % Normal [facility] Comment on above: Order Comment: Speci men Type: BLOOD SPECIMENOrdering Facility: [facility] Address: [address] Performed By: #### 5 7021-8 ####[facility] LABCLIA [id number] [place] [address] [place] Erythrocyte distribution width (RBC) [Ratio] 16.8 % High 11.5-15.0 [facility] Comment on above: Order Comment: Speci men Type: BLOOD SPECIMENOrdering Facility: [facility] Address: [address] [place], [place] [address] Performed By: #### 5 7021-8 ####[facility] LABCLIA [id number] [place] [address] [place] Hematocrit (Bld) [Volume fraction] 26.2 % Low 36.0-46.0 [facility] Comment on above: Order Comment: Speci men Type: BLOOD SPECIMENOrdering Facility: [facility] Address: [address] Performed By: #### 5 7021-8 ####[facility] LABCLIA [id number] [place] [address] [place] [place] Hemoglobin (Bld) [Mass/Vol] 8.3 g/dL Low 11.5-15.5 [facility] Comment on above: Order Comment: Speci men Type: BLOOD SPECIMENOrdering Facility: [facility] Address: [address] [place], [place] [address] Performed By: #### 5 7021-8 ####[facility] LABCLIA [id number] [place] [address] [place] Immature granulocytes (Bld) [#/Vol] 10*3/uL Normal <0.10 [facility] Comment on above: Order Comment: Speci men Type: BLOOD SPECIMENOrdering Facility: [facility] Address: [address] [place] [address] Performed By: #### 5 7021-8 ####[facility] LABCLIA [id number] [place] [address] [place] Immature granulocytes/100 WBC (Bld) 0.1 % Normal [facility] Comment on above: Order Comment: Speci men Type: BLOOD SPECIMENOrdering Facility: [facility] Address: [address] [place] [address] Performed By: #### 5 7021-8 ####[facility] LABCLIA [id number] [place] [address] [place] Lymphocytes (Bld) [#/Vol] 2.71 10*3/uL Normal 1.00-4.00 [facility] Comment on above: Order Comment: Speci men Type: BLOOD SPECIMENOrdering Facility: [facility] Address: [address] [place], [place] [address] Performed By: #### 5 7021-8 ####[facility] LABCLIA [id number] [address] [place] Lymphocytes/100 WBC (Bld) 35.3 % Normal [facility] Comment on above: Order Comment: Speci men Type: BLOOD SPECIMENOrdering Facility: [facility] Address: [address] [place], [place] [address] Performed By: #### 5 7021-8 ####[facility] LABCLIA [id number] [place] [address] [place] MCH (RBC) [Entitic mass] 27.3 pg Normal 26.0-34.0 [facility] Comment on above: Order Comment: Speci men Type: BLOOD SPECIMENOrdering Facility: [facility] Address: [address] Performed By: #### 5 7021-8 ####[facility] LABCLIA [id number] [place] [address] [place] MCHC (RBC) [Mass/Vol] 31.7 g/dL Normal 30.5-36.0 [facility] Comment on above: Order Comment: Speci men Type: BLOOD SPECIMENOrdering Facility: [facility] Address: [address] [place], [place] [address] Performed By: #### 5 7021-8 ####[facility] LABCLIA [id number] [place] [address] [place] MCV (RBC) [Entitic vol] 86.2 fL Normal 80.0-100.0 [facility] Comment on above: Order Comment: Speci men Type: BLOOD SPECIMENOrdering Facility: [facility] Address: [address] [place], [place] [address] Performed By: #### 5 7021-8 ####[facility] LABCLIA [id number] [place] [address] [place] Monocytes (Bld) [#/Vol] 0.59 10*3/uL Normal <0.87 [facility] Comment on above: Order Comment: Speci men Type: BLOOD SPECIMENOrdering Facility: [facility] Address: [address] [place], [place] [address] Performed By: #### 5 7021-8 ####[facility] LABCLIA [id number] [address] [place] Monocytes/100 WBC (Bld) 7.7 % Normal [facility] Comment on above: Order Comment: Speci men Type: BLOOD SPECIMENOrdering Facility: [facility] Address: [address] [place], [place] [address] Performed By: #### 5 7021-8 ####[facility] LABCLIA [id number] [place] [address] [place] Neutrophils (Bld) [#/Vol] 4.24 10*3/uL Normal 1.45-7.50 [facility] Comment on above: Order Comment: Speci men Type: BLOOD SPECIMENOrdering Facility: [facility] Address: [address] [place] [address] Performed By: #### 5 7021-8 ####[facility] LABCLIA [id number] [place] [address] [place] Neutrophils/100 WBC (Bld) 55.2 % Normal [facility] Comment on above: Order Comment: Speci men Type: BLOOD SPECIMENOrdering Facility: [facility] Address: [address] [place] [address] Performed By: #### 5 7021-8 ####[facility] LABCLIA [id number] [place] [address] [place] Nucleated RBC (Bld) [#/Vol] 10*3/uL Normal <0.01 [facility] Comment on above: Order Comment: Speci men Type: BLOOD SPECIMENOrdering Facility: [facility] Address: [address] [place], [place] [address] Performed By: #### 5 7021-8 ####[facility] LABIA [id number] [place] [address] [place] Nucleated RBC/100 WBC (Bld) [Ratio] 0.0 /100 WBC Normal [facility] Comment on above: Order Comment: Speci men Type: BLOOD SPECIMENOrdering Facility: [facility] Address: [address] [place], [place] [address] Performed By: #### 5 7021-8 ####[facility] LABIA [id number] [place] [address] [place] Platelet mean volume (Bld) [Entitic vol] 10.7 fL Normal 9.0-12.7 [facility] Comment on above: Order Comment: Speci men Type: BLOOD SPECIMENOrdering Facility: [facility] Address: [address] [place], [place] [address] Performed By: #### 5 7021-8 ####[facility] LABCLIA [id number] [place] [address] [place] Platelets (Bld) [#/Vol] 272 10*3/uL Normal 150-400 [facility] Comment on above: Order Comment: Speci men Type: BLOOD SPECIMENOrdering Facility: [facility] Address: [address] [place], [place] [address] Performed By: #### 5 7021-8 ####[facility] LABCLIA [id number] [place] [address] [place] RBC (Bld) [#/Vol] 3.04 10*6/uL Low 3.90-5.20 [facility] Comment on above: Order Comment: Speci men Type: BLOOD SPECIMENOrdering Facility: [facility] Address: [address] [place], [place] [address] Performed By: #### 5 7021-8 ####[facility] LABIA [id number] [place] [address] [place] WBC (Bld) [#/Vol] 7.68 10*3/uL Normal 3.70-11.00 [facility] Comment on above: Order Comment: Speci men Type: BLOOD SPECIMENOrdering Facility: [facility] Address: [address] [place], [place] [address] Performed By: #### 5 7021-8 ####[facility] LABCLIA [id number] [place] [address] [place] Basophils (Bld) [#/Vol] 10*3/uL Normal <0.11 [facility] Comment on above: Order Comment: Speci men Type: BLOOD SPECIMENOrdering Facility: [facility] Address: [address] Performed By: #### 5 7021-8 ####[facility] LABCLIA [id number] [address] [place] [facility] Basophils/100 WBC (Bld) 0.1 % Normal [facility] Comment on above: Order Comment: Speci men Type: BLOOD SPECIMENOrdering Facility: [facility] Address: [address] [address] Performed By: #### 5 7021-8 ####[facility] LABCLIA [id number] [place] [address] [place] Differential cell count method Nom (Bld) Auto Normal [facility] Comment on above: Order Comment: Speci men Type: BLOOD SPECIMENOrdering Facility: [facility] Address: [address] [place], [place] [address] Performed By: #### 5 7021-8 ####[facility] LABCLIA [id number] [place] [address] [place] Eosinophils (Bld) [#/Vol] 10*3/uL Normal <0.46 [facility] Comment on above: Order Comment: Speci men Type: BLOOD SPECIMENOrdering Facility: [facility] Address: [address] [place], [place] [address] Performed By: #### 5 7021-8 ####[facility] LABCLIA [id number] [address] [place] Eosinophils/100 WBC (Bld) 0.0 % Normal [facility] Comment on above: Order Comment: Speci men Type: BLOOD SPECIMENOrdering Facility: [facility] Address: [address] [place], [place] [address] Performed By: #### 5 7021-8 ####[facility] LABCLIA [id number] [place] [address] [place] Erythrocyte distribution width (RBC) [Ratio] 16.1 % High 11.5-15.0 [facility] Comment on above: Order Comment: Speci men Type: BLOOD SPECIMENOrdering Facility: [facility] Address: [address] [place] [address] Performed By: #### 5 7021-8 ####[facility] LABIA [id number] [place] [address] [place] Hematocrit (Bld) [Volume fraction] 28.4 % Low 36.0-46.0 [facility] Comment on above: Order Comment: Speci men Type: BLOOD SPECIMENOrdering Facility: [facility] Address: [address] [place] [address] Performed By: #### 5 7021-8 ####[facility] LABIA [id number] [place] [address] [place] Hemoglobin (Bld) [Mass/Vol] 9.2 g/dL Low 11.5-15.5 [facility] Comment on above: Order Comment: Speci men Type: BLOOD SPECIMENOrdering Facility: [facility] Address: [address] [place] [address] Performed By: #### 5 7021-8 ####[facility] LABIA [id number] [place] [address] [place] Immature granulocytes (Bld) [#/Vol] 0.04 10*3/uL Normal <0.10 [facility] Comment on above: Order Comment: Speci men Type: BLOOD SPECIMENOrdering Facility: [facility] Address: [address] [place], [place] [address] Performed By: #### 5 7021-8 ####[facility] LABIA [id number] [place] [address] [place] Immature granulocytes/100 WBC (Bld) 0.5 % Normal [facility] Comment on above: Order Comment: Speci men Type: BLOOD SPECIMENOrdering Facility: [facility] Address: [address] Performed By: #### 5 7021-8 ####[facility] LABCLIA [id number] [place] [address] [place] Lymphocytes (Bld) [#/Vol] 1.33 10*3/uL Normal 1.00-4.00 [facility] Comment on above: Order Comment: Speci men Type: BLOOD SPECIMENOrdering Facility: [facility] Address: [address] Performed By: #### 5 7021-8 ####[facility] LABCLIA [id number] [place] [address] [place] Lymphocytes/100 WBC (Bld) 15.1 % Normal [facility] Comment on above: Order Comment: Speci men Type: BLOOD SPECIMENOrdering Facility: [facility] Address: [address] [place], [place] [address] Performed By: #### 5 7021-8 ####[facility] LABCLIA [id number] [place] [address] [place] MCH (RBC) [Entitic mass] 27.7 pg Normal 26.0-34.0 [facility] Comment on above: Order Comment: Speci men Type: BLOOD SPECIMENOrdering Facility: [facility] Address: [address] [place], [place] [address] Performed By: #### 5 7021-8 ####[facility] LABCLIA [id number] [place] [address] [place] MCHC (RBC) [Mass/Vol] 32.4 g/dL Normal 30.5-36.0 [facility] Comment on above: Order Comment: Speci men Type: BLOOD SPECIMENOrdering Facility: [facility] Address: [address] [place], [place] [address] Performed By: #### 5 7021-8 ####[facility] LABCLIA [id number] [place] [address] [place] MCV (RBC) [Entitic vol] 85.5 fL Normal 80.0-100.0 [facility] Comment on above: Order Comment: Speci men Type: BLOOD SPECIMENOrdering Facility: [facility] Address: [address] [place] [address] Performed By: #### 5 7021-8 ####[facility] LABCLIA [id number] [place] [address] [place] Monocytes (Bld) [#/Vol] 0.28 10*3/uL Normal <0.87 [facility] Comment on above: Order Comment: Speci men Type: BLOOD SPECIMENOrdering Facility: [facility] Address: [address] [place] [address] Performed By: #### 5 7021-8 ####[facility] LABCLIA [id number] [address] [place] [facility] Monocytes/100 WBC (Bld) 3.2 % Normal [facility] Comment on above: Order Comment: Speci men Type: BLOOD SPECIMENOrdering Facility: [facility] Address: [address] [place] [address] Performed By: #### 5 7021-8 ####[facility] LABCLIA [id number] [place] [address] [place] Neutrophils (Bld) [#/Vol] 7.13 10*3/uL Normal 1.45-7.50 [facility] Comment on above: Order Comment: Speci men Type: BLOOD SPECIMENOrdering Facility: [facility] Address: [address] [place], [place] [address] Performed By: #### 5 7021-8 ####[facility] LABCLIA [id number] [address] [place] Neutrophils/100 WBC (Bld) 81.1 % Normal [facility] Comment on above: Order Comment: Speci men Type: BLOOD SPECIMENOrdering Facility: [facility] Address: [address] Performed By: #### 5 7021-8 ####[facility] LABIA [id number] [place] [address] [place] Nucleated RBC (Bld) [#/Vol] 10*3/uL Normal <0.01 [facility] Comment on above: Order Comment: Speci men Type: BLOOD SPECIMENOrdering Facility: [facility] Address: [address] Performed By: #### 5 7021-8 ####[facility] LABIA [id number] [place] [address] [place] Nucleated RBC/100 WBC (Bld) [Ratio] 0.0 /100 WBC Normal [facility] Comment on above: Order Comment: Speci men Type: BLOOD SPECIMENOrdering Facility: [facility] Address: [address] Performed By: #### 5 7021-8 ####[facility] [id number] [place] [address] [place] Platelet mean volume (Bld) [Entitic vol] 10.5 fL Normal 9.0-12.7 [facility] Comment on above: Order Comment: Speci men Type: BLOOD SPECIMENOrdering Facility: [facility] Address: [address] [place] [address] Performed By: #### 5 7021-8 ####[facility] LABIA [id number] [place] [address] [place] Platelets (Bld) [#/Vol] 319 10*3/uL Normal 150-400 [facility] Comment on above: Order Comment: Speci men Type: BLOOD SPECIMENOrdering Facility: [facility] Address: [address] [place] [address] Performed By: #### 5 7021-8 ####[facility] LABCLIA [id number] [place] [address] [place] RBC (Bld) [#/Vol] 3.32 10*6/uL Low 3.90-5.20 [facility] Comment on above: Order Comment: Speci men Type: BLOOD SPECIMENOrdering Facility: [facility] Address: [address] [address] Performed By: #### 5 7021-8 ####[facility] LABCLIA [id number] [place] [address] [place] WBC (Bld) [#/Vol] 8.79 10*3/uL Normal 3.70-11.00 [facility] Comment on above: Order Comment: Speci men Type: BLOOD SPECIMENOrdering Facility: [facility] Address: [address] [place] [address] Performed By: #### 5 7021-8 ####[facility] LABIA [id number] [place] [address] [place] CONSULTon 04-21-2023 CONSULT Normal [facility] CONSULT PROGon 04-21-2023 CONSULT PROG Normal [facility] CRP SerPl-mCncon 04-21-2023 CRP [Mass/Vol] 1.0 mg/dL High <0.9 [facility] Comment on above: Order Comment: Speci men Type: BLOOD SPECIMENOrdering Facility: [facility] Address: [address] Performed By: #### 1 988-5, 74624-1, 74594-3 ####[facility] LABIA [id number] [place] [address] [place] CRP [Mass/Vol] 0.5 mg/dL Normal <0.9 [facility] Comment on above: Order Comment: Speci men Type: BLOOD SPECIMENOrdering Facility: [facility] Address: [address] Performed By: #### 2 4321-2, 1988-02, HSTNT, 2776-10, ####[facility] LABCLIA [id number] [place] [address] [place] HIGH SENSITIVITY TROPONIN To n 04-21-2023 HIGH SENSITIVITY BILL 14 ng/L High <12 [facility] Comment on above: Order Comment: Matti bernal Type: BLOOD SPECIMENOrdering Facility: [facility] Address: [address] [place] [address] Result Comment: When assessing risk for acute coronary syndromes: In patients undergoing blood draw greater than or equal to 2 hours from symptom onset, with history of very low to moderate risk and non-ischemic ECG, an initial hs-Troponin T less than 12 ng/L AND a 1 hour delta hs-Troponin T less than 3 ng/L should be considered very low risk for 30 day MACE. Performed By: #### H STNT ####[facility] LABCLIA [id number] [address] HIGH SENSITIVITY BILL 13 ng/L High <12 [facility] Comment on above: Order Comment: Matti bernal Type: BLOOD SPECIMENOrdering Facility: [facility] Address: [address] [place] [address] Result Comment: When assessing risk for acute coronary syndromes: In patients undergoing blood draw greater than or equal to 2 hours from symptom onset, with history of very low to moderate risk and non-ischemic ECG, an initial hs-Troponin T less than 12 ng/L AND a 1 hour delta hs-Troponin T less than 3 ng/L should be considered very low risk for 30 day MACE. Performed By: #### 2 4321-2, 1988-02, HSTNT, 2776-, ####[facility] LABCLIA [id number] [place] [address] [place] Hepatic function 2000 panelo n 04-21-2023 Albumin [Mass/Vol] 3.4 g/dL Low 3.9-4.[address] [facility] Comment on above: Order Comment: Speci men Type: BLOOD SPECIMENOrdering Facility: [facility] Address: [address] [place] [address] Performed By: #### 1 988-5, 78361-8, 63484-5 ####[facility] LABCLIA [id number] [place] [address] [place] ALP [Catalytic activity/Vol] 116 U/L Normal 34-123 [facility] Comment on above: Order Comment: Speci men Type: BLOOD SPECIMENOrdering Facility: [facility] Address: [address] [place] [address] Performed By: #### 1 988-5, 44797-4, 42825-0 ####[facility] LABCLIA [id number] [place] [address] [place] ALT [Catalytic activity/Vol] 33 U/L Normal 7-38 [facility] Comment on above: Order Comment: Speci men Type: BLOOD SPECIMENOrdering Facility: [facility] Address: [address] [place] [address] Performed By: #### 1 988-5, 31901-1, 67912-0 ####[facility] LABCLIA [id number] [place] [address] [place] AST [Catalytic activity/Vol] 31 U/L Normal 13-35 [facility] Comment on above: Order Comment: Speci men Type: BLOOD SPECIMENOrdering Facility: [facility] Address: [address] [place], [place] [address] Performed By: #### 1 988-5, 36034-5, 71649-6 ####[facility] LABCLIA [id number] [place] [address] [place] Bilirubin [Mass/Vol] 0.9 mg/dL Normal 0.2-1.3 [facility] Comment on above: Order Comment: Speci men Type: BLOOD SPECIMENOrdering Facility: [facility] Address: [address] Performed By: #### 1 988-5, 31205-2, 01334-5 ####[facility] LABCLIA [id number] [place] [address] [place] Bilirubin.conjugated [Mass/Vol] 0.3 mg/dL High <0.2 [facility] Comment on above: Order Comment: Speci men Type: BLOOD SPECIMENOrdering Facility: [facility] Address: [address] [place] [address] Performed By: #### 1 988-5, 46196-2, 77380-6 ####[facility] LABCLIA [id number] [place] [address] [place] Protein [Mass/Vol] 6.0 g/dL Low 6.3-8.[address] [facility] Comment on above: Order Comment: Speci men Type: BLOOD SPECIMENOrdering Facility: [facility] Address: [address] [place] [address] Result Comment: Resu lt rechecked. Performed By: #### 1 988-5, 19498-0, 21544-8 ####[facility] LABIA [id number] [place] [address] [place] Magnesium SerPl-mCncon 04-21 Magnesium [Mass/Vol] 1.7 mg/dL Normal 1.7-2.3 [facility] Comment on above: Order Comment: Speci men Type: BLOOD SPECIMENOrdering Facility: [facility] Address: [address] Performed By: #### 1 9123-9, 82983-9 ####[facility] LABCLIA [id number] [place] [address] [place] Magnesium [Mass/Vol] 1.6 mg/dL Low 1.7-2.3 [facility] Comment on above: Order Comment: Speci men Type: BLOOD SPECIMENOrdering Facility: [facility] Address: [address] [address] Performed By: #### 2 4321-2, 1988-02, HSTNT, 2776-10, ####[facility] LABCLIA [id number] [place] [id number] [place] NUTRITIONon 04-21-2023 NUTRITION Normal [facility] Phosphate SerPl-mCncon 04-21 Phosphate [Mass/Vol] 5.8 mg/dL High 2.7-4.8 [facility] Comment on above: Order Comment: Speci men Type: BLOOD SPECIMENOrdering Facility: [facility] Address: [address] [place] [address] Performed By: #### 2 4321-2, 1988-02, HSTNT, 2776-10, ####[facility] LABCLIA [id number] [place] [id number] [place] Prealb SerPl-ncon 04-21-20 23 Prealbumin [Mass/Vol] 21 mg/dL Normal 17-36 [facility] Comment on above: Order Comment: Speci men Type: BLOOD SPECIMENOrdering Facility: [facility] Address: [address] [place] [address] Performed By: #### 1 988-5, 21887-7, 72911-0 ####[facility] LABCLIA [id number] [place] [id number] [place] Renal function 2000 panelon 04-21-2023 Albumin [Mass/Vol] 3.5 g/dL Low 3.9-4.[address] [facility] Comment on above: Order Comment: Speci men Type: BLOOD SPECIMENOrdering Facility: [facility] Address: [address] [place] [address] Performed By: #### 1 9123-9, 48570-7 ####[facility] LABCLIA [id number] [place] [address] [place] Anion gap [Moles/Vol] 12 mmol/L Normal 9-18 [facility] Comment on above: Order Comment: Speci men Type: BLOOD SPECIMENOrdering Facility: [facility] Address: [address] [place] [address] Performed By: #### 1 9123-9, 29516-8 ####[facility] LABCLIA [id number] [place] [address] [place] Calcium [Mass/Vol] 8.6 mg/dL Normal 8.5-10.[address] [facility] Comment on above: Order Comment: Speci men Type: BLOOD SPECIMENOrdering Facility: [facility] Address: [address] [place] [address] Performed By: #### 1 9123-9, 05986-7 ####[facility] LABCLIA [id number] [place] [address] [place] Chloride [Moles/Vol] 99 mmol/L Normal 97-105 [facility] Comment on above: Order Comment: Speci men Type: BLOOD SPECIMENOrdering Facility: [facility] Address: [address] [place] [address] Performed By: #### 1 9123-9, 91425-0 ####[facility] LABCLIA [id number] [place] [address] [place] CO2 [Moles/Vol] 28 mmol/L Normal 22-30 [facility] Comment on above: Order Comment: Speci men Type: BLOOD SPECIMENOrdering Facility: [facility] Address: [address] [place], [place] [address] Performed By: #### 1 9123-9, 34412-6 ####[facility] LABCLIA [id number] [place] [address] [place] Creatinine [Mass/Vol] 1.72 mg/dL High 0.58-0.96 [facility] Comment on above: Order Comment: Matti bernal Type: BLOOD SPECIMENOrdering Facility: [facility] Address: [address] [phone] Performed By: #### 1 9123-9, 35667-7 ####[facility] LABCLIA [id number] [place] [address] [place] ESTIMATED GLOMERULAR FILTRATION RATE 35 mL/min/1.73m??? Low >=60 [facility] Comment on above: Order Comment: Matti bernal Type: BLOOD SPECIMENOrdering Facility: [facility] Address: [address] [place] [address] Result Comment: Karen mated Glomerular Filtration Rate (eGFR) is calculated using the 2020 CKD-EPI creatinine equation. This equation utilizes serum creatinine, sex, and age as parameters. The creatinine assay has traceable calibration to isotope dilution-mass spectrometry. Refer to KDIGO guidelines for clinical interpretation. In patients with unstable renal function, e.g. those with acute kidney injury, the eGFR may not accurately reflect actual GFR. Performed By: #### 1 9123-9, 11499-7 ####[facility] LABCLIA [id number] [place] [address] [place] Glucose [Mass/Vol] 104 mg/dL High 74-[address] [facility] Comment on above: Order Comment: Matti bernal Type: BLOOD SPECIMENOrdering Facility: [facility] Address: [address] [place] [address] Result Comment: The [place] Diabetes Association (ADA) provides guidance for cutoff values for fasting glucose and random glucose. The ADA defines fasting as no caloric intake for at least 8 hours. Fasting plasma glucose results between 100 to 125 mg/dL indicate increased risk for diabetes (prediabetes).Fasting plasma glucose results greater than or equal to 126 mg/dL meet the criteria for diagnosis of diabetes. In the absence of unequivocal hyperglycemia, results should be confirmed by repeat testing. In a patient with classic symptoms of hyperglycemia or hyperglycemic crisis, random plasma glucose results greater than or equal to 200 mg/dL meet the criteria for diagnosis of diabetes.Reference: Standards of Medical Care in Diabetes 2016, [place] [employer]. Diabetes Care. 2016.39(Suppl 1). Performed By: #### 1 9123-9, 91460-6 ####[facility] LABIA [id number] [place] [address] [place] Phosphate [Mass/Vol] 3.8 mg/dL Normal 2.7-4.8 [facility] Comment on above: Order Comment: Speci men Type: BLOOD SPECIMENOrdering Facility: [facility] Address: [address] [address] Performed By: #### 1 9123-9, 55921-3 ####[facility] [id number] [place] [address] [place] Potassium [Moles/Vol] 3.7 mmol/L Normal 3.7-5.1 [facility] Comment on above: Order Comment: Speci men Type: BLOOD SPECIMENOrdering Facility: [facility] Address: [address] Performed By: #### 1 9123-9, 37217-6 ####[facility] [id number] [place] [address] [place] Sodium [Moles/Vol] 139 mmol/L Normal 136-[address] [facility] Comment on above: Order Comment: Speci men Type: BLOOD SPECIMENOrdering Facility: [facility] Address: [address] Performed By: #### 1 9123-9, 67938-1 ####[facility] LABIA [id number] [place] [id number] [place] Urea nitrogen [Mass/Vol] 31 mg/dL High 7-21 [facility] Comment on above: Order Comment: Speci men Type: BLOOD SPECIMENOrdering Facility: [facility] Address: [address] Performed By: #### 1 9123-9, 65942-6 ####[facility] LABCLIA [id number] [place] [address] [place] ANES POSTPROC EVALon 023 ANES POSTPROC EVAL Normal [facility] ANES PRE-OPon 04-20-2023 ANES PRE-OP Normal [facility] BRIEF OP NOTon 04-20-2023 BRIEF OP NOT Normal [facility] OPERATIVE NOon 04-20-2023 OPERATIVE NO Normal [facility] CBC panel Auto (Bld)on 04-19 Erythrocyte distribution width (RBC) [Ratio] 16.6 % High 11.5-15.0 [facility] Comment on above: Order Comment: Speci men Type: BLOOD SPECIMENOrdering Facility: [facility] Address: [address] [place] [address] Performed By: #### 5 8410-2 ####[facility] LABIA [id number] [address] [place] Hematocrit (Bld) [Volume fraction] 36.7 % Normal 36.0-46.0 [facility] Comment on above: Order Comment: Speci men Type: BLOOD SPECIMENOrdering Facility: [facility] Address: [address] [place] [address] Performed By: #### 5 8410-2 ####[facility] LABIA [id number] [place] [address] [place] Hemoglobin (Bld) [Mass/Vol] 11.1 g/dL Low 11.5-15.5 [facility] Comment on above: Order Comment: Speci men Type: BLOOD SPECIMENOrdering Facility: [facility] Address: [address] [place] [address] Performed By: #### 5 8410-2 ####[facility] LABCLIA [id number] [place] [address] [place] MCH (RBC) [Entitic mass] 27.2 pg Normal 26.0-34.0 [facility] Comment on above: Order Comment: Speci men Type: BLOOD SPECIMENOrdering Facility: [facility] Address: [address] [place] [address] Performed By: #### 5 8410-2 ####[facility] LABCLIA [id number] [address] [place] MCHC (RBC) [Mass/Vol] 30.2 g/dL Low 30.5-36.0 [facility] Comment on above: Order Comment: Speci men Type: BLOOD SPECIMENOrdering Facility: [facility] Address: [address] [place] [address] Performed By: #### 5 8410-2 ####[facility] LABCLIA [id number] [address] [place] MCV (RBC) [Entitic vol] 90.0 fL Normal 80.0-100.0 [facility] Comment on above: Order Comment: Speci men Type: BLOOD SPECIMENOrdering Facility: [facility] Address: [address] [place], [place] [address] Performed By: #### 5 8410-2 ####[facility] LABIA [id number] [place] [address] [place] Nucleated RBC (Bld) [#/Vol] 10*3/uL Normal <0.01 [facility] Comment on above: Order Comment: Speci men Type: BLOOD SPECIMENOrdering Facility: [facility] Address: [address] [place], [place] [address] Performed By: #### 5 8410-2 ####[facility] LABIA [id number] [address] [place] Platelet mean volume (Bld) [Entitic vol] 11.1 fL Normal 9.0-12.7 [facility] Comment on above: Order Comment: Speci men Type: BLOOD SPECIMENOrdering Facility: [facility] Address: [address] [address] Performed By: #### 5 8410-2 ####[facility] LABIA [id number] [place] [address] [place] Platelets (Bld) [#/Vol] 375 10*3/uL Normal 150-400 [facility] Comment on above: Order Comment: Speci men Type: BLOOD SPECIMENOrdering Facility: [facility] Address: [address] [place] [address] Performed By: #### 5 8410-2 ####[facility] LABIA [id number] [place] [address] [place] RBC (Bld) [#/Vol] 4.08 10*6/uL Normal 3.90-5.20 [facility] Comment on above: Order Comment: Speci men Type: BLOOD SPECIMENOrdering Facility: [facility] Address: [address] [place] [address] Performed By: #### 5 8410-2 ####[facility] LABIA [id number] [place] [address] [place] WBC (Bld) [#/Vol] 7.13 10*3/uL Normal 3.70-11.00 [facility] Comment on above: Order Comment: Speci men Type: BLOOD SPECIMENOrdering Facility: [facility] Address: [address] [place] [address] Performed By: #### 5 8410-2 ####[facility] LABIA [id number] [place] [address] [place] CNCNPATEDon 04-19-2023 CNCNPATED Normal [facility] CNOVon 04-19-2023 CNOV Normal [facility] Comprehensive metabolic 2000 panelon 04-19-2023 Albumin [Mass/Vol] 4.4 g/dL Normal 3.9-4.[address] [facility] Comment on above: Order Comment: Speci men Type: BLOOD SPECIMENOrdering Facility: [facility] Address: [address] Performed By: #### 2 4323-8 ####[facility] LABCLIA [id number] [place] [address] [place] ALP [Catalytic activity/Vol] 151 U/L High 34-123 [facility] Comment on above: Order Comment: Speci men Type: BLOOD SPECIMENOrdering Facility: [facility] Address: [address] Performed By: #### 2 4323-8 ####[facility] LABCLIA [id number] [place] [address] [place] ALT [Catalytic activity/Vol] 62 U/L High 7-38 [facility] Comment on above: Order Comment: Speci men Type: BLOOD SPECIMENOrdering Facility: [facility] Address: [address] [place], [place] [address] Performed By: #### 2 4323-8 ####[facility] LABCLIA [id number] [place] [address] [place] Anion gap [Moles/Vol] 15 mmol/L Normal 9-18 [facility] Comment on above: Order Comment: Speci men Type: BLOOD SPECIMENOrdering Facility: [facility] Address: [address] Performed By: #### 2 4323-8 ####[facility] LABCLIA [id number] [place] [address] [place] AST [Catalytic activity/Vol] 66 U/L High 13-35 [facility] Comment on above: Order Comment: Speci men Type: BLOOD SPECIMENOrdering Facility: [facility] Address: [address] Performed By: #### 2 4323-8 ####[facility] LABCLIA [id number] [place] [address] [place] Bilirubin [Mass/Vol] 1.3 mg/dL Normal 0.2-1.3 [facility] Comment on above: Order Comment: Speci men Type: BLOOD SPECIMENOrdering Facility: [facility] Address: [address] [place] [address] Performed By: #### 2 4323-8 ####[facility] LABCLIA [id number] [place] [address] [place] Calcium [Mass/Vol] 10.4 mg/dL High 8.5-10.[address] [facility] Comment on above: Order Comment: Speci men Type: BLOOD SPECIMENOrdering Facility: [facility] Address: [address] [place] [address] Performed By: #### 2 4323-8 ####[facility] LABCLIA [id number] [place] [address] [place] Chloride [Moles/Vol] 99 mmol/L Normal 97-105 [facility] Comment on above: Order Comment: Speci men Type: BLOOD SPECIMENOrdering Facility: [facility] Address: [address] [place], [place] [address] Performed By: #### 2 4323-8 ####[facility] LABCLIA [id number] [place] [address] [place] CO2 [Moles/Vol] 26 mmol/L Normal 22-30 [facility] Comment on above: Order Comment: Speci men Type: BLOOD SPECIMENOrdering Facility: [facility] Address: [address] [place], [place] [address] Performed By: #### 2 4323-8 ####[facility] LABCLIA [id number] [place] [address] [place] Creatinine [Mass/Vol] 1.26 mg/dL High 0.58-0.96 [facility] Comment on above: Order Comment: Speci men Type: BLOOD SPECIMENOrdering Facility: [facility] Address: [address] [address] Performed By: #### 2 4323-8 ####[facility] LABIA [id number] [place] ESTIMATED GLOMERULAR FILTRATION RATE 50 mL/min/1.73m??? Low >=60 [facility] Comment on above: Order Comment: Matti bernal Type: BLOOD SPECIMENOrdering Facility: [facility] Address: [address] [place] [address] Result Comment: Karen mated Glomerular Filtration Rate (eGFR) is calculated using the 2020 CKD-EPI creatinine equation. This equation utilizes serum creatinine, sex, and age as parameters. The creatinine assay has traceable calibration to isotope dilution-mass spectrometry. Refer to KDIGO guidelines for clinical interpretation. In patients with unstable renal function, e.g. those with acute kidney injury, the eGFR may not accurately reflect actual GFR. Performed By: #### 2 4323-8 ####[facility] LABIA [id number] [place] [address] [place] Glucose [Mass/Vol] 78 mg/dL Normal 74-[address] [facility] Comment on above: Order Comment: Matti bernal Type: BLOOD SPECIMENOrdering Facility: [facility] Address: [address] [place] [address] Result Comment: The [place] Diabetes Association (ADA) provides guidance for cutoff values for fasting glucose and random glucose. The ADA defines fasting as no caloric intake for at least 8 hours. Fasting plasma glucose results between 100 to 125 mg/dL indicate increased risk for diabetes (prediabetes).Fasting plasma glucose results greater than or equal to 126 mg/dL meet the criteria for diagnosis of diabetes. In the absence of unequivocal hyperglycemia, results should be confirmed by repeat testing. In a patient with classic symptoms of hyperglycemia or hyperglycemic crisis, random plasma glucose results greater than or equal to 200 mg/dL meet the criteria for diagnosis of diabetes.Reference: Standards of Medical Care in Diabetes 2016, [place] [employer]. Diabetes Care. 2016.39(Suppl 1). Performed By: #### 2 4323-8 ####[facility] LABCLIA [id number] [place] [address] [place] Potassium [Moles/Vol] 4.1 mmol/L Normal 3.7-5.1 [facility] Comment on above: Order Comment: Speci men Type: BLOOD SPECIMENOrdering Facility: [facility] Address: [address] [place] [address] Performed By: #### 2 4323-8 ####[facility] LABCLIA [id number] [place] [address] [place] Protein [Mass/Vol] 8.0 g/dL Normal 6.3-8.[address] [facility] Comment on above: Order Comment: Speci men Type: BLOOD SPECIMENOrdering Facility: [facility] Address: [address] [place] [address] Performed By: #### 2 4323-8 ####[facility] LABIA [id number] [place] [address] [place] Sodium [Moles/Vol] 140 mmol/L Normal 136-[address] [facility] Comment on above: Order Comment: Speci men Type: BLOOD SPECIMENOrdering Facility: [facility] Address: [address] [place], [place] [address] Performed By: #### 2 4323-8 ####[facility] LABIA [id number] [place] [address] [place] Urea nitrogen [Mass/Vol] 32 mg/dL High 7-21 [facility] Comment on above: Order Comment: Speci men Type: BLOOD SPECIMENOrdering Facility: [facility] Address: [address] [place], [place] [address] Performed By: #### 2 4323-8 ####[facility] LABCLIA [id number] [place] [address] [place] HISTORY PHYSICALon 3 HISTORY PHYSICAL Normal [facility] TYPE AND SCREEN,30 DAYon ABO A Normal [facility] Comment on above: Order Comment: Speci men Type: BLOOD SPECIMENOrdering Facility: [facility] Address: [address] [place] [address] Performed By: #### T SCR30 ####[facility] MAIN BLOOD BANKCLIA [id number] [address] OF [facility] HISTORICAL AB SCR STATUS Negative Normal [facility] Comment on above: Order Comment: Speci men Type: BLOOD SPECIMENOrdering Facility: [facility] Address: [address] [place] [address] Performed By: #### T SCR30 ####[facility] MA[facility] BLOOD BANKCLIA [id number] [address] [place] Rh Nom (Bld) Positive Normal [facility] Comment on above: Order Comment: Speci men Type: BLOOD SPECIMENOrdering Facility: [facility] Address: [address] [place] [address] Performed By: #### T SCR30 ####[facility] MA[facility] BLOOD BANKCLIA [id number] [address] [place] XR ILEOSTOMY INJECTIONon XR ILEOSTOMY INJECTION Normal [facility] CBC with Auto Differentialon 04-17-2023 Basophils (Bld) [#/Vol] 0.04 10*3/uL [employer] [facility] [employer] Basophils/100 WBC (Bld) 1 % 0 - 2 % [facility]ITALpop[facility] Eosinophils (Bld) [#/Vol] 0.20 10*3/uL [employer] [facility] [employer] Eosinophils/100 WBC (Bld) 3 % 1 - 4 % [facility] Erythrocyte distribution width (RBC) [Ratio] 16.5 % High 11.8 - 14.4 % [employer] [facility] [employer] Hematocrit (Bld) [Volume fraction] 29.8 % Low 36.3 - 47.1 % [facility] Hemoglobin (Bld) [Mass/Vol] 9.5 g/dL Low 11.9 - 15.1 g/dL [facility] Immature granulocytes (Bld) [#/Vol] [facility] Immature granulocytes/100 WBC (Bld) 0 % 0 [facility] Interpretation and review of laboratory results Abnormal [facility] Lymphocytes/100 WBC (Bld) 37 % 24 - 43 % [facility] Lymphocytes/100 WBC (Bld) 2.27 % [facility] MCH (RBC) [Entitic mass] 27.9 pg 25.2 - 33.5 pg [facility] MCHC (RBC) [Mass/Vol] 31.9 g/dL 28.4 - 34.8 g/dL [facility] MCV (RBC) [Entitic vol] 87.4 fL 82.6 - 102.9 fL [facility] Monocytes/100 WBC (Bld) 9 % 3 - 12 % [facility] Monocytes/100 WBC (Bld) 0.53 % [facility] Neutrophils/100 WBC (Bld) 50 % 36 - 65 % [facility] Nucleated RBC/100 WBC (Bld) [Ratio] 0.0 % 0.0 per 100 WBC [facility] Platelet mean volume (Bld) [Entitic vol] 11.2 fL 8.1 - 13.5 fL [facility] Platelets (Bld) [#/Vol] 330 10*3/uL [facility] RBC (Bld) [#/Vol] 3.41 10*6/uL Low 3.95 - 5.11 m/uL [facility] Segmented neutrophils/100 WBC (Bld) 3.04 % [facility] WBC other (Bld) [#/Vol] 6.1 [facility] CBC with Diffon 04-17-2023 Abs. Basophil 0.04 k/uL Normal 0.00-0.20 [facility] Comment on above: Performed By: #### P HO, MG, CDP, CP ####[facility] [place] [address] [facility] Director: Samuel Ayers MD Abs.Imm.Granulocyte <0.03 Normal 0.00-0.30 [facility] Comment on above: Performed By: #### P HO, MG, CDP, CP ####[address] , [place] [address])[phone] Director: Samuel Ayers MD Abs.Neutrophil (Seg) 3.04 k/uL Normal 1.50-8.10 [facility] Comment on above: Performed By: #### P HO, MG, CDP, CP ####[address] , [place] [address] Lab Director: Samuel Ayers MD Basophils/100 WBC (Bld) 1 % Normal 0-2 [facility] Comment on above: Performed By: #### P HO, MG, CDP, CP ####[address] [place] [id number]([facility])[phone] Director: Samuel Ayers MD Eosinophils (Bld) [#/Vol] 0.20 10*3/uL Normal 0.00-0.44 [facility] Comment on above: Performed By: #### P HO, MG, CDP, CP ####[address] , [place] [address])[phone] Director: Samuel Ayers MD Eosinophils/100 WBC (Bld) 3 % Normal 1-4 [facility] Comment on above: Performed By: #### P HO, MG, CDP, CP ####[address] , [place] [address])[phone] Director: Samuel Ayers MD Erythrocyte distribution width (RBC) [Ratio] 16.5 % High 11.8-14.4 [facility] Comment on above: Performed By: #### P HO, MG, CDP, CP ####[address] , [facility]83 Lab Director: Samuel Ayers MD Hematocrit (Bld) [Volume fraction] 29.8 % Low 36.3-47.1 [facility] Comment on above: Performed By: #### P HO, MG, CDP, CP ####[address] , [facility]83 Lab Director: Samuel Ayers MD Hemoglobin (Bld) [Mass/Vol] 9.5 g/dL Low 11.9-15.1 [facility] Comment on above: Performed By: #### P HO, MG, CDP, CP ####[address] , [facility]83 lab Director: Samuel Ayers MD Immature granulocytes/100 WBC (Bld) 0 % Normal 0 [facility] Comment on above: Performed By: #### P HO, MG, CDP, CP ####[address] , [facility]83 lab Director: Samuel Ayers MD Lymphocytes (Bld) [#/Vol] 2.27 10*3/uL Normal 1.10-3.70 [facility] Comment on above: Performed By: #### P HO, MG, CDP, CP ####[address] , [facility]83 lab Director: Samuel Ayers MD Lymphocytes/100 WBC (Bld) 37 % Normal 24-43 [facility] Comment on above: Performed By: #### P HO, MG, CDP, CP ####[address] , [facility]83 Lab Director: Samuel Ayers MD MCH (RBC) [Entitic mass] 27.9 pg Normal 25.2-33.5 [facility] Comment on above: Performed By: #### P HO, MG, CDP, CP ####[address] , [place] [address] lab Director: Samuel Ayers MD MCHC (RBC) [Mass/Vol] 31.9 g/dL Normal 28.4-34.8 [facility] Comment on above: Performed By: #### P HO, MG, CDP, CP ####[address] , [place] [address])[phone] Director: Samuel Ayers MD MCV (RBC) [Entitic vol] 87.4 fL Normal 82.6-102.9 [facility] Comment on above: Performed By: #### P HO, MG, CDP, CP ####[address] , [place] [address] lab Director: Samuel Ayers MD Monocytes (Bld) [#/Vol] 0.53 10*3/uL Normal 0.10-1.20 [facility] Comment on above: Performed By: #### P HO, MG, CDP, CP ####[address] , [place] [address])[phone] Director: Samuel Ayers MD Monocytes/100 WBC (Bld) 9 % Normal 3-12 [facility] Comment on above: Performed By: #### P HO, MG, CDP, CP ####[address] , [facility]83 Lab Director: Samuel Ayers MD Neutrophil (Seg) 50 % Normal 36-65 [facility] Comment on above: Performed By: #### P HO, MG, CDP, CP ####[address] , [facility]83 lab Director: Samuel Ayers MD NRBC Automated 0.0 per [address] [facility] Comment on above: Performed By: #### P HO, MG, CDP, CP ####[address] , [facility]83 lab Director: Samuel Ayers MD Platelet mean volume (Bld) [Entitic vol] 11.2 fL Normal 8.1-13.5 [facility] Comment on above: Performed By: #### P HO, MG, CDP, CP ####[address] , [place] [id number] Lab Director: Samuel Ayers MD Platelets (Bld) [#/Vol] 330 10*3/uL Normal 138-453 [facility] Comment on above: Performed By: #### P HO, MG, CDP, CP ####[address] [place] [address] Lab Director: Samuel Ayers MD RBC (Bld) [#/Vol] 3.41 10*6/uL Low 3.95-5.11 [facility] Comment on above: Performed By: #### P HO, MG, CDP, CP ####[address] , [place] [address] Lab Director: Samuel Ayers MD WBC (Bld) [#/Vol] 6.1 10*3/uL Normal 3.5-11.3 [facility] Comment on above: Performed By: #### P HO, MG, CDP, CP ####[address] , [place] [address] Lab Director: Samuel Ayers MD Comp Metabolic Profon 2022 Albumin [Mass/Vol] 3.9 g/dL Normal 3.5-5.2 [facility] Comment on above: Performed By: #### P HO, MG, CDP, CP ####[address] [place] [address] Lab Director: Samuel Ayers MD Albumin/Glob Ratio 1.1 Normal 1.0-2.5 [facility] Comment on above: Performed By: #### P HO, MG, CDP, CP ####[address] , [place] [address] Lab Director: Samuel Ayers MD Alkaline Phos 130 U/L High 35-104 [facility] Comment on above: Performed By: #### P HO, MG, CDP, CP ####[address] , [facility]83 [facility] Director: Samuel Ayers MD ALT [Catalytic activity/Vol] 38 U/L High 5-33 [facility] Comment on above: Performed By: #### P HO, MG, CDP, CP ####[address] , [facility]83 lab Director: Samuel Ayers MD Anion gap [Moles/Vol] 10 mmol/L Normal 9-17 [facility] Comment on above: Performed By: #### P HO, MG, CDP, CP ####[address] , [facility]83 lab Director: Samuel Ayers MD AST [Catalytic activity/Vol] 39 U/L High <32 [facility] Comment on above: Performed By: #### P HO, MG, CDP, CP ####[address] , [facility]83 lab Director: Samuel Ayers MD Bilirubin [Mass/Vol] 1.8 mg/dL High 0.3-1.2 [facility] Comment on above: Performed By: #### P HO, MG, CDP, CP ####[address] , [facility]83 [facility] Director: Samuel Ayers MD BUN/CRE Ratio 34 High 9-20 [facility] Comment on above: Performed By: #### P HO, MG, CDP, CP ####[address] [place] [address] lab Director: Samuel Ayers MD Calcium [Mass/Vol] 9.5 mg/dL Normal 8.6-10.4 [facility] Comment on above: Performed By: #### P HO, MG, CDP, CP ####[facility] [place] , [place] [id number] Lab Director: Samuel Ayers MD Chloride [Moles/Vol] 96 mmol/L Low 98-107 [facility] Comment on above: Performed By: #### P HO, MG, CDP, CP ####[facility] [place] [address] lab Director: Samuel Ayers MD CO2 [Moles/Vol] 30 mmol/L Normal 20-31 [facility] Comment on above: Performed By: #### P HO, MG, CDP, CP ####[facility] [place] , [place] [id number] lab Director: Samuel Ayers MD Creatinine [Mass/Vol] 1.4 mg/dL High 0.50-0.90 [facility] Comment on above: Performed By: #### P HO, MG, CDP, CP ####[address] , [place] [id number] lab Director: Samuel Ayers MD GFR/1.73 sq M.predicted among non-blacks MDRD (S/P/Bld) [Vol rate/Area] 44 mL/min/{1.73_m2} Low >60 [facility] Comment on above: Result Comment: Thes e results are not intended for use in patients <18 years of age.eGFR results are calculated without a race factor using the 2020 CKD-EPI equation.Careful clinical correlation is recommended, particularly when comparing to results calculated using previous equations.The CKD-EPI equation is less accurate in patients with extremes of muscle mass, extra-renal metabolism of creatine, excessive creatine ingestion, or following therapy that affects renal tubular secretion. Performed By: #### P HO, MG, CDP, CP ####[facility] [place] [address] lab Director: Samuel Ayers MD Glucose [Mass/Vol] 116 mg/dL High 70-99 [facility] Comment on above: Performed By: #### P HO, MG, CDP, CP ####[facility] [place] , [place] [id number] Lab Director: Samuel Ayers MD Potassium [Moles/Vol] 4.1 mmol/L Normal 3.7-5.3 [facility] Comment on above: Performed By: #### P HO, MG, CDP, CP ####[facility] [place] , [place] [address] Lab Director: Samuel Ayers MD Protein [Mass/Vol] 7.6 g/dL Normal 6.4-8.3 [facility] Comment on above: Performed By: #### P HO, MG, CDP, CP ####[address] , [place] [id number] Lab Director: Samuel Ayers MD Sodium [Moles/Vol] 136 mmol/L Normal 135-144 [facility] Comment on above: Performed By: #### P HO, MG, CDP, CP ####[address] , [place] [id number] Lab Director: Samuel Ayers MD Urea nitrogen [Mass/Vol] 48 mg/dL High 6-20 [facility] Comment on above: Performed By: #### P HO, MG, CDP, CP ####[address] , [place] [address] Lab Director: Samuel Ayers MD Comprehensive Metabolic Pane [facility] 04-17-2023 Albumin [Mass/Vol] 3.9 g/dL 3.5 - 5.2 g/dL [facility] Albumin/Globulin [Mass ratio] 1.1 {ratio} 1.0 - 2.5 [facility] ALP [Catalytic activity/Vol] 130 U/L High 35 - 104 U/L [facility] ALT [Catalytic activity/Vol] 38 U/L High 5 - 33 U/L [facility] Anion gap [Moles/Vol] 10 mmol/L 9 - 17 mmol/L [facility] AST [Catalytic activity/Vol] 39 U/L High NINF - 32 U/L [facility] Bilirubin [Mass/Vol] 1.8 mg/dL High 0.3 - 1 .2 mg/dL [facility] Calcium [Mass/Vol] 9.5 mg/dL 8.6 - 10. 4 mg/dL [facility] Chloride [Moles/Vol] 96 mmol/L Low 98 - 10 7 mmol/L [facility] CO2 [Moles/Vol] 30 mmol/L 20 - 31 mmol/L [facility] Creatinine [Mass/Vol] 1.4 mg/dL High 0.50 - 0.90 mg/dL [facility] GFR/1.73 sq M.predicted MDRD (S/P/Bld) [Vol rate/Area] 44 mL/min/{1.73_m2} Low - PINF [facility] Comment on above: These results are not intended for use in patients <18 years of age. eGFR results are calculated without a race factor using the 2020 CKD-EPI equation. Careful clinical correlation is recommended, particularly when comparing to results calculated using previous equations. The CKD-EPI equation is less accurate in patients with extremes of muscle mass, extra-renal metabolism of creatine, excessive creatine ingestion, or following therapy that affects renal tubular secretion. Glucose [Mass/Vol] 116 mg/dL High 70 - 99 mg/dL [facility] Interpretation and review of laboratory results Abnormal [facility] Potassium [Moles/Vol] 4.1 mmol/L 3.7 - 5.3 mmol/L [facility] Protein [Mass/Vol] 7.6 g/dL 6.4 - 8.3 g/dL [facility] Sodium [Moles/Vol] 136 mmol/L 135 - 144 mmol/L [facility] Urea nitrogen [Mass/Vol] 48 mg/dL High 6 - 20 mg/dL [facility] Urea nitrogen/Creatinine [Mass ratio] 34 mg/mg High 9 - 20 [facility] Magnesiumon 04-17-2023 Magnesium [Mass/Vol] 2.0 mg/dL Normal 1.6-2.6 [facility] Comment on above: Performed By: #### P HO, MG, CDP, CP ####[facility] [place] [address] lab Director: Samuel Ayers MD Magnesium [Mass/Vol] 2.0 mg/dL 1.6 - 2 .6 mg/dL [facility] No Panel Informationon 04-17 [facility] Phosphoruson 04-17-2023 Phosphate [Mass/Vol] 4.0 mg/dL 2.6 - 4 .5 mg/dL [facility] Phosphorus, Inorg.on 023 Phosphorus, Inorg. 4.0 mg/dL Normal 2.6-4.5 [facility] Comment on above: Performed By: #### P HO, MG, CDP, CP ####[facility] [place] [address] lab Director: Samuel Ayers MD CBC with Auto Differentialon 04-10-2023 Basophils (Bld) [#/Vol] 0.04 10*3/uL [facility] Basophils/100 WBC (Bld) 1 % 0 - 2 % [facility] Eosinophils (Bld) [#/Vol] 0.24 10*3/uL [facility] Eosinophils/100 WBC (Bld) 4 % 1 - 4 % [facility] Erythrocyte distribution width (RBC) [Ratio] 17.4 % High 11.8 - 14.4 % [facility] Hematocrit (Bld) [Volume fraction] 27.2 % Low 36.3 - 47.1 % [facility] Hemoglobin (Bld) [Mass/Vol] 8.6 g/dL Low 11.9 - 15.1 g/dL [facility] Immature granulocytes (Bld) [#/Vol] [facility] Immature granulocytes/100 WBC (Bld) 0 % 0 [facility] Interpretation and review of laboratory results Abnormal [facility] Lymphocytes/100 WBC (Bld) 38 % 24 - 43 % [facility] Lymphocytes/100 WBC (Bld) 2.11 % [facility] MCH (RBC) [Entitic mass] 27.9 pg 25.2 - 33.5 pg [facility] MCHC (RBC) [Mass/Vol] 31.6 g/dL 28.4 - 34.8 g/dL [facility] MCV (RBC) [Entitic vol] 88.3 fL 82.6 - 102.9 fL [facility] Monocytes/100 WBC (Bld) 8 % 3 - 12 % [facility] Monocytes/100 WBC (Bld) 0.46 % [facility] Neutrophils/100 WBC (Bld) 49 % 36 - 65 % [facility] Nucleated RBC/100 WBC (Bld) [Ratio] 0.0 % 0.0 per 100 WBC [facility] Platelet mean volume (Bld) [Entitic vol] 11.9 fL 8.1 - 13.5 fL [facility] Platelets (Bld) [#/Vol] 239 10*3/uL [facility] RBC (Bld) [#/Vol] 3.08 10*6/uL Low 3.95 - 5.11 m/uL [facility] Segmented neutrophils/100 WBC (Bld) 2.73 % [facility] WBC other (Bld) [#/Vol] 5.6 [facility] CBC with Diffon 04-10-2023 Abs. Basophil 0.04 k/uL Normal 0.00-0.20 [facility] Comment on above: Performed By: #### M TYLER Bailey, ANURADHA, CDP ####[facility] [place] [place] , [place] [address] Lab Director: Samuel Ayers MD Abs.Imm.Granulocyte <0.03 Normal 0.00-0.30 [facility] Comment on above: Performed By: #### M Leo, CP, ANURADHA, CDP ####[facility] [place] , [place] [id number] lab Director: Samuel Ayers MD Abs.Neutrophil (Seg) 2.73 k/uL Normal 1.50-8.10 [facility] Comment on above: Performed By: #### M G, CP, ANURADHA, CDP ####[address] , [place] [address])[phone] Director: Samuel Ayers MD Basophils/100 WBC (Bld) 1 % Normal 0-2 [facility] Comment on above: Performed By: #### M G, CP, ANURADHA, CDP ####[address] , [place] [address] lab Director: Samuel Ayers MD Eosinophils (Bld) [#/Vol] 0.24 10*3/uL Normal 0.00-0.44 [facility] Comment on above: Performed By: #### M G, CP, ANURADHA, CDP ####[address] [place] [address] lab Director: Samuel Ayers MD Eosinophils/100 WBC (Bld) 4 % Normal 1-4 [facility] Comment on above: Performed By: #### M G, CP, ANURADHA, CDP ####[address] , [place] [address] lab Director: Samuel Ayers MD Erythrocyte distribution width (RBC) [Ratio] 17.4 % High 11.8-14.4 [facility] Comment on above: Performed By: #### M G, CP, ANURADHA, CDP ####[address] , [place] [address])[phone] Director: Samuel Ayers MD Hematocrit (Bld) [Volume fraction] 27.2 % Low 36.3-47.1 [facility] Comment on above: Performed By: #### M G, CP, ANURADHA, CDP ####[address] , [facility]83 Lab Director: Samuel Ayers MD Hemoglobin (Bld) [Mass/Vol] 8.6 g/dL Low 11.9-15.1 [facility] Comment on above: Performed By: #### M G, CP, ANURADHA, CDP ####[address] , [place] [address])[phone] Director: Samuel Ayers MD Immature granulocytes/100 WBC (Bld) 0 % Normal 0 [facility] Comment on above: Performed By: #### M G, CP, ANURADHA, CDP ####[address] , [place] [address])[phone] Director: Samuel Ayers MD Lymphocytes (Bld) [#/Vol] 2.11 10*3/uL Normal 1.10-3.70 [facility] Comment on above: Performed By: #### M G, CP, ANURADHA, CDP ####[address] , [place] [address])[phone] Director: Samuel Ayers MD Lymphocytes/100 WBC (Bld) 38 % Normal 24-43 [facility] Comment on above: Performed By: #### M G, CP, ANURADHA, CDP ####[address] , [place] [address])[phone] Director: Samuel Ayers MD MCH (RBC) [Entitic mass] 27.9 pg Normal 25.2-33.5 [facility] Comment on above: Performed By: #### M G, CP, ANURADHA, CDP ####[address] , [place] [address])[phone] Director: Samuel Ayers MD MCHC (RBC) [Mass/Vol] 31.6 g/dL Normal 28.4-34.8 [facility] Comment on above: Performed By: #### M G, CP, ANURADHA, CDP ####[address] , [facility]83 Lab Director: Samuel Ayers MD MCV (RBC) [Entitic vol] 88.3 fL Normal 82.6-102.9 [facility] Comment on above: Performed By: #### M G, CP, ANURADHA, CDP ####[address] , [place] [address] Lab Director: Samuel Ayers MD Monocytes (Bld) [#/Vol] 0.46 10*3/uL Normal 0.10-1.20 [facility] Comment on above: Performed By: #### M G, CP, ANURADHA, CDP ####[address] , [place] [address])[phone] Director: Samuel Ayers MD Monocytes/100 WBC (Bld) 8 % Normal 3-12 [facility] Comment on above: Performed By: #### M G, CP, ANURADHA, CDP ####[address] , [place] [address])[phone] Director: Samuel Ayers MD Neutrophil (Seg) 49 % Normal 36-65 [facility] Comment on above: Performed By: #### M G, CP, ANURADHA, CDP ####[address] , [facility]83[facility])[phone] Director: Samuel Ayers MD NRBC Automated 0.0 per [address] [facility] Comment on above: Performed By: #### M G, CP, ANURADHA, CDP ####[address] , [place] [address])[phone] Director: Samuel Ayers MD Platelet mean volume (Bld) [Entitic vol] 11.9 fL Normal 8.1-13.5 [facility] Comment on above: Performed By: #### M G, CP, ANURADHA, CDP ####[address] , [place] [id number] Lab Director: Samuel Ayers MD Platelets (Bld) [#/Vol] 239 10*3/uL Normal 138-453 [facility] Comment on above: Performed By: #### M G, CP, ANURADHA, CDP ####[address] [place] [address] Lab Director: Samuel Ayers MD RBC (Bld) [#/Vol] 3.08 10*6/uL Low 3.95-5.11 [facility] Comment on above: Performed By: #### M G, CP, ANURADHA, CDP ####[address] , [place] [phone] Director: Samuel Ayers MD WBC (Bld) [#/Vol] 5.6 10*3/uL Normal 3.5-11.3 [facility] Comment on above: Performed By: #### M G, CP, ANURADHA, CDP ####[address] , [place] 157[address]83 Lab Director: Samuel Ayers MD Comp Metabolic Profon 2022 Albumin [Mass/Vol] 3.8 g/dL Normal 3.5-5.2 [facility] Comment on above: Performed By: #### M G, CP, ANURADHA, CDP ####[address] [place] [address] Lab Director: Samuel Ayers MD Albumin/Glob Ratio 1.2 Normal 1.0-2.5 [facility] Comment on above: Performed By: #### M G, CP, ANURADHA, CDP ####[address] , [place] [id number] Lab Director: Samuel Ayers MD Alkaline Phos 119 U/L High 35-104 [facility] Comment on above: Performed By: #### M G, CP, ANURADHA, CDP ####[address] , [place] 27[address]83 Lab Director: Samuel Ayers MD ALT [Catalytic activity/Vol] 25 U/L Normal 5-33 [facility] Comment on above: Performed By: #### M G, CP, ANURADHA, CDP ####[address] , [place] 9[address]83 Lab Director: Samuel Ayers MD Anion gap [Moles/Vol] 9 mmol/L Normal 9-17 [facility] Comment on above: Performed By: #### M G, CP, ANURADHA, CDP ####[address] [place] [address] Lab Director: Samuel Ayers MD AST [Catalytic activity/Vol] 25 U/L Normal <32 [facility] Comment on above: Performed By: #### M G, CP, ANURADHA, CDP ####[address] , [place] 0[address] lab Director: Samuel Ayers MD Bilirubin [Mass/Vol] 1.0 mg/dL Normal 0.3-1.2 [facility] Comment on above: Performed By: #### M G, CP, ANURADHA, CDP ####[address] , [place] 9186[address] Lab Director: Samuel Ayers MD BUN/CRE Ratio 36 High 9-20 [facility] Comment on above: Performed By: #### M G, CP, ANURADHA, CDP ####[address] , [place] 2987683 Lab Director: Samuel Ayers MD Calcium [Mass/Vol] 9.1 mg/dL Normal 8.6-10.4 [facility] Comment on above: Performed By: #### M G, CP, ANURADHA, CDP ####[address] , [place] 1575383 Lab Director: Samuel Ayers MD Chloride [Moles/Vol] 105 mmol/L Normal 98-107 [facility] Comment on above: Performed By: #### M G, CP, ANURADHA, CDP ####[address] [place] [id number] Lab Director: Samuel Ayers MD CO2 [Moles/Vol] 26 mmol/L Normal 20-31 [facility] Comment on above: Performed By: #### M G, CP, ANURADHA, CDP ####[facility] [place] [address] lab Director: Samuel Ayers MD Creatinine [Mass/Vol] 1.27 mg/dL High 0.50-0.90 [facility] Comment on above: Performed By: #### M G, CP, ANURADHA, CDP ####[address] [place] [address] lab Director: Samuel Ayers MD GFR/1.73 sq M.predicted among non-blacks MDRD (S/P/Bld) [Vol rate/Area] 50 mL/min/{1.73_m2} Low >60 [facility] Comment on above: Result Comment: Thes e results are not intended for use in patients <18 years of age.eGFR results are calculated without a race factor using the 2020 CKD-EPI equation.Careful clinical correlation is recommended, particularly when comparing to results calculated using previous equations.The CKD-EPI equation is less accurate in patients with extremes of muscle mass, extra-renal metabolism of creatine, excessive creatine ingestion, or following therapy that affects renal tubular secretion. Performed By: #### M G, CP, ANURADHA, CDP ####[address] , [facility]83 Lab Director: Samuel Ayers MD Glucose [Mass/Vol] 92 mg/dL Normal 70-99 [facility] Comment on above: Performed By: #### M G, CP, ANURADHA, CDP ####[address] [place] [address] lab Director: Samuel Ayers MD Potassium [Moles/Vol] 3.4 mmol/L Low 3.7-5.3 [facility] Comment on above: Performed By: #### M G, CP, ANURADHA, CDP ####[facility] [place] [address] Lab Director: Samuel Ayers MD Protein [Mass/Vol] 6.9 g/dL Normal 6.4-8.3 [facility] Comment on above: Performed By: #### M G, CP, ANURADHA, CDP ####[facility] [place] [address] lab Director: Samuel Ayers MD Sodium [Moles/Vol] 140 mmol/L Normal 135-144 [facility] Comment on above: Performed By: #### M G, CP, ANURADHA, CDP ####[facility] [place] [address] lab Director: Samuel Ayers MD Urea nitrogen [Mass/Vol] 46 mg/dL High 6-20 [facility] Comment on above: Performed By: #### M G, CP, ANURADHA, CDP ####[address] [place] [address] lab Director: Samuel Ayers MD Comprehensive Metabolic Pane [facility] 04-10-2023 Albumin [Mass/Vol] 3.8 g/dL 3.5 - 5.2 g/dL [facility] Albumin/Globulin [Mass ratio] 1.2 {ratio} 1.0 - 2.5 [facility] ALP [Catalytic activity/Vol] 119 U/L High 35 - 104 U/L [facility] ALT [Catalytic activity/Vol] 25 U/L 5 - 33 U/L [facility] Anion gap [Moles/Vol] 9 mmol/L 9 - 17 mmol/L [facility] AST [Catalytic activity/Vol] 25 U/L NINF - 32 U/L [facility] Bilirubin [Mass/Vol] 1.0 mg/dL 0.3 - 1 .2 mg/dL [facility] Calcium [Mass/Vol] 9.1 mg/dL 8.6 - 10. 4 mg/dL [facility] Chloride [Moles/Vol] 105 mmol/L 98 - 10 7 mmol/L [facility] CO2 [Moles/Vol] 26 mmol/L 20 - 31 mmol/L [facility] Creatinine [Mass/Vol] 1.27 mg/dL High 0.50 - 0.90 mg/dL [facility] GFR/1.73 sq M.predicted MDRD (S/P/Bld) [Vol rate/Area] 50 mL/min/{1.73_m2} Low - PINF [facility] Comment on above: These results are not intended for use in patients <18 years of age. eGFR results are calculated without a race factor using the 2020 CKD-EPI equation. Careful clinical correlation is recommended, particularly when comparing to results calculated using previous equations. The CKD-EPI equation is less accurate in patients with extremes of muscle mass, extra-renal metabolism of creatine, excessive creatine ingestion, or following therapy that affects renal tubular secretion. Glucose [Mass/Vol] 92 mg/dL 70 - 99 mg/dL [facility] Interpretation and review of laboratory results Abnormal [facility] Potassium [Moles/Vol] 3.4 mmol/L Low 3.7 - 5.3 mmol/L [facility] Protein [Mass/Vol] 6.9 g/dL 6.4 - 8.3 g/dL [facility] Sodium [Moles/Vol] 140 mmol/L 135 - 144 mmol/L [facility] Urea nitrogen [Mass/Vol] 46 mg/dL High 6 - 20 mg/dL [facility] Urea nitrogen/Creatinine [Mass ratio] 36 mg/mg High 9 - 20 [facility] Magnesiumon 04-10-2023 Magnesium [Mass/Vol] 1.8 mg/dL Normal 1.6-2.6 [facility] Comment on above: Performed By: #### M G, CP, ANURADHA, CDP ####[facility] [place] [address] lab Director: Samuel Ayers MD Magnesium [Mass/Vol] 1.8 mg/dL 1.6 - 2 .6 mg/dL [facility] No Panel Informationon 04-10 [facility] Phosphoruson 04-10-2023 Phosphate [Mass/Vol] 3.3 mg/dL 2.6 - 4 .5 mg/dL [facility] Phosphorus, Inorg.on 023 Phosphorus, Inorg. 3.3 mg/dL Normal 2.6-4.5 [facility] Comment on above: Performed By: #### M G, CP, ANURADHA, CDP ####[address] , [place] [id number] [facility] Director: Samuel Ayers MD CNPNon 04-04-2023 CNPN Normal [facility] CBC with Diffon 04-03-2023 Abs. Basophil 0.07 k/uL Normal 0.00-0.20 [facility] Comment on above: Performed By: #### M G, CDP, CP, ANURADHA ####[address] , [place] [id number] lab Director: Samuel Ayers MD Abs.Imm.Granulocyte <0.03 Normal 0.00-0.30 [facility] Comment on above: Performed By: #### M G, CDP, CP, ANURADHA ####[address] , [place] 8[address]83 lab Director: Samuel Ayers MD Abs.Neutrophil (Seg) 4.46 k/uL Normal 1.50-8.10 [facility] Comment on above: Performed By: #### M G, CDP, CP, ANURADHA ####[address] , [place] [id number] lab Director: Samuel Ayers MD Basophils/100 WBC (Bld) 1 % Normal 0-2 [facility] Comment on above: Performed By: #### M G, CDP, CP, ANURADHA ####[address] , [place] 105[address] lab Director: Samuel Ayers MD Eosinophils (Bld) [#/Vol] 0.25 10*3/uL Normal 0.00-0.44 [facility] Comment on above: Performed By: #### M Leo, CDP, CP, ANURADHA ####[address] [place] [address] Lab Director: Samuel Ayers MD Eosinophils/100 WBC (Bld) 3 % Normal 1-4 [facility] Comment on above: Performed By: #### M Leo, CDP, CP, ANURADHA ####[address] , [facility]83 Lab Director: Samuel Ayers MD Erythrocyte distribution width (RBC) [Ratio] 16.8 % High 11.8-14.4 [facility] Comment on above: Performed By: #### M Leo, CDP, CP, ANURADHA ####[address] [place], [place] [address]83 Lab Director: Samuel Ayers MD Hematocrit (Bld) [Volume fraction] 26.4 % Low 36.3-47.1 [facility] Comment on above: Performed By: #### Catherine Bailey, ILANA, CP, ANURADHA ####[address] , [place] [id number] Lab Director: Samuel Ayers MD Hemoglobin (Bld) [Mass/Vol] 8.5 g/dL Low 11.9-15.1 [facility] Comment on above: Performed By: #### M Leo, ILANA, CP, ANURADHA ####[address] , [place] 1565[address] Lab Director: Samuel Ayers MD Immature granulocytes/100 WBC (Bld) 0 % Normal 0 [facility] Comment on above: Performed By: #### M Leo, ILANA, CP, ANURADHA ####[address] , [place] [id number] Lab Director: Sameul Ayers MD Lymphocytes (Bld) [#/Vol] 2.04 10*3/uL Normal 1.10-3.70 [facility] Comment on above: Performed By: #### Catherine Bailey, ILANA, CP, ANURADHA ####[address] , [place] [address] Lab Director: Samuel Ayers MD Lymphocytes/100 WBC (Bld) 28 % Normal 24-43 [facility] Comment on above: Performed By: #### Catherine Bailey, ILANA, CP, ANURADHA ####[address] , [facility]83 Lab Director: Samuel Ayers MD MCH (RBC) [Entitic mass] 27.6 pg Normal 25.2-33.5 [facility] Comment on above: Performed By: #### Catherine Bailey, ILANA, CP, ANURADHA ####[address] [place] [id number] Lab Director: Samuel Ayers MD MCHC (RBC) [Mass/Vol] 32.2 g/dL Normal 28.4-34.8 [facility] Comment on above: Performed By: #### Catherine Bailey, ILANA, CP, ANURADHA ####[address] , [place] [address])[phone] Director: Samuel Ayers MD MCV (RBC) [Entitic vol] 85.7 fL Normal 82.6-102.9 [facility] Comment on above: Performed By: #### Catherine Bailey, ILANA, CP, ANURADHA ####[address] , [facility]83[facility])[phone] Director: Samuel Ayers MD Monocytes (Bld) [#/Vol] 0.50 10*3/uL Normal 0.10-1.20 [facility] Comment on above: Performed By: #### Catherine Bailey, ILANA, CP, ANURADHA ####[address] [place] [address] Lab Director: Samuel Ayers MD Monocytes/100 WBC (Bld) 7 % Normal 3-12 [facility] Comment on above: Performed By: #### M G, CDP, CP, ANURADHA ####[address] [place] [address] Lab Director: Samuel Ayers MD Neutrophil (Seg) 61 % Normal 36-65 [facility] Comment on above: Performed By: #### M G, CDP, CP, ANURADHA ####[address] , [facility]83 Lab Director: Samuel Aeyrs MD NRBC Automated 0.0 per [address] [facility] Comment on above: Performed By: #### M G, CDP, CP, ANURADHA ####[address] , [place] [id number] Lab Director: Samuel Ayers MD Platelet mean volume (Bld) [Entitic vol] 11.6 fL Normal 8.1-13.5 [facility] Comment on above: Performed By: #### Catherine Bailey, CDP, CP, ANURADHA ####[address] , [place] [id number] Lab Director: Samuel Ayers MD Platelets (Bld) [#/Vol] 242 10*3/uL Normal 138-453 [facility] Comment on above: Performed By: #### M G, CDP, CP, ANURADHA ####[address] , [place] [id number] Lab Director: Samuel Ayers MD RBC (Bld) [#/Vol] 3.08 10*6/uL Low 3.95-5.11 [facility] Comment on above: Performed By: #### M G, CDP, CP, ANURADHA ####[address] , [place] [id number] Lab Director: Samuel Ayers MD WBC (Bld) [#/Vol] 7.3 10*3/uL Normal 3.5-11.3 [facility] Comment on above: Performed By: #### M G, CDP, CP, ANURADHA ####[address] [place] [address] Lab Director: Samuel Ayers MD Comp Metabolic Profon 2022 Albumin [Mass/Vol] 4.0 g/dL Normal 3.5-5.2 [facility] Comment on above: Performed By: #### M G, CDP, CP, ANURADHA ####[address] , [place] [id number] Lab Director: Samuel Ayers MD Albumin/Glob Ratio 1.2 Normal 1.0-2.5 [facility] Comment on above: Performed By: #### M G, CDP, CP, ANURADHA ####[address] [place] [address] Lab Director: Samuel Ayers MD Alkaline Phos 128 U/L High 35-104 [facility] Comment on above: Performed By: #### M G, CDP, CP, ANURADHA ####[address] [place] [address] Lab Director: Samuel Ayers MD ALT [Catalytic activity/Vol] 27 U/L Normal 5-33 [facility] Comment on above: Performed By: #### M G, CDP, CP, ANURADHA ####[address] [place] [address] Lab Director: Samuel Ayers MD Anion gap [Moles/Vol] 12 mmol/L Normal 9-17 [facility] Comment on above: Performed By: #### M G, CDP, CP, ANURADHA ####[address] , [place] [id number] Lab Director: Samuel Ayers MD AST [Catalytic activity/Vol] 27 U/L Normal <32 [facility] Comment on above: Performed By: #### M G, CDP, CP, ANURADHA ####[address] , [place] [id number] Lab Director: Samuel Ayers MD Bilirubin [Mass/Vol] 1.0 mg/dL Normal 0.3-1.2 [facility] Comment on above: Performed By: #### M G, CDP, CP, ANURADHA ####[address] [place] [address] Lab Director: Samuel Ayers MD BUN/CRE Ratio 41 High 9-20 [facility] Comment on above: Performed By: #### M G, CDP, CP, ANURADHA ####[address] , [place] 6477083 Lab Director: Samuel Ayres MD Calcium [Mass/Vol] 9.7 mg/dL Normal 8.6-10.4 [facility] Comment on above: Performed By: #### M G, CDP, CP, ANURADHA ####[address] , [place] 7995683 Lab Director: Samuel Ayers MD Chloride [Moles/Vol] 104 mmol/L Normal 98-107 [facility] Comment on above: Performed By: #### M G, CDP, CP, ANURADHA ####[address] , [place] 1450483 Lab Director: Samuel Ayers MD CO2 [Moles/Vol] 26 mmol/L Normal 20-31 [facility] Comment on above: Performed By: #### M G, CDP, CP, ANURADHA ####[address] , [place] 2200783 Lab Director: Samuel Ayers MD Creatinine [Mass/Vol] 1.33 mg/dL High 0.50-0.90 [facility] Comment on above: Performed By: #### M G, CDP, CP, ANURADHA ####[address] [place] [address] Lab Director: Samuel Ayers MD GFR/1.73 sq M.predicted among non-blacks MDRD (S/P/Bld) [Vol rate/Area] 47 mL/min/{1.73_m2} Low >60 [facility] Comment on above: Result Comment: Thes e results are not intended for use in patients <18 years of age.eGFR results are calculated without a race factor using the 2020 CKD-EPI equation.Careful clinical correlation is recommended, particularly when comparing to results calculated using previous equations.The CKD-EPI equation is less accurate in patients with extremes of muscle mass, extra-renal metabolism of creatine, excessive creatine ingestion, or following therapy that affects renal tubular secretion. Performed By: #### M Leo, ILANA, CP, ANURADHA ####[address] [place] [address] lab Director: Samuel Ayers MD Glucose [Mass/Vol] 122 mg/dL High 70-99 [facility] Comment on above: Performed By: #### M Leo, ILANA, CP, ANURADHA ####[address] , [facility]83 lab Director: Samuel Ayers MD Potassium [Moles/Vol] 3.2 mmol/L Low 3.7-5.3 [facility] Comment on above: Performed By: #### M ILANA Bailey, CP, ANURADHA ####[address] , [facility]83 Lab Director: Samuel Ayers MD Protein [Mass/Vol] 7.3 g/dL Normal 6.4-8.3 [facility] Comment on above: Performed By: #### M Leo, ILANA, CP, ANURADHA ####[address] [place] [address] lab Director: Samuel Ayers MD Sodium [Moles/Vol] 142 mmol/L Normal 135-144 [facility] Comment on above: Performed By: #### M Leo, CDP, CP, ANURADHA ####[address] , [place] 1466683 Lab Director: Samuel Ayers MD Urea nitrogen [Mass/Vol] 55 mg/dL High 03-28 [facility] Comment on above: Performed By: #### M G, CDP, CP, ANURADHA ####[address] , [facility]83 Lab Director: Samuel Ayers MD Magnesiumon 04-03-2023 Magnesium [Mass/Vol] 2.0 mg/dL Normal 1.6-2.6 [facility] Comment on above: Performed By: #### M G, CDP, CP, ANURADHA ####[address] , [facility]83 lab Director: Samuel Ayers MD Phosphorus, Inorg.on 023 Phosphorus, Inorg. 3.0 mg/dL Normal 2.6-4.5 [facility] Comment on above: Performed By: #### M G, CDP, CP, ANURADHA ####[address] , [place] [address] lab Director: Samuel Ayers MD CBC with Diffon 03-28-2023 Abs. Basophil 0.04 k/uL Normal 0.00-0.20 [facility] Comment on above: Performed By: #### V NCT, CDP, ANURADHA, MG, CP ####[address] , [place] [address] Lab Director: Samuel Ayers MD Abs.Imm.Granulocyte <0.03 Normal 0.00-0.30 [facility] Comment on above: Performed By: #### V NCT, CDP, ANURADHA, MG, CP ####[address] , [place] 0878783 lab Director: Samuel Ayers MD Abs.Neutrophil (Seg) 3.71 k/uL Normal 1.50-8.10 [facility] Comment on above: Performed By: #### V NCT, CDP, ANURADHA, MG, CP ####[address] [place] [address] lab Director: Samuel Ayers MD Basophils/100 WBC (Bld) 1 % Normal 0-2 [facility] Comment on above: Performed By: #### V NCT, CDP, ANURADHA, MG, CP ####[address] , [facility]83 lab Director: Samuel Ayers MD Eosinophils (Bld) [#/Vol] 0.28 10*3/uL Normal 0.00-0.44 [facility] Comment on above: Performed By: #### V NCT, CDP, ANURADHA, MG, CP ####[address] [place] [id number] lab Director: Samuel Ayers MD Eosinophils/100 WBC (Bld) 4 % Normal 1-4 [facility] Comment on above: Performed By: #### V NCT, CDP, ANURADHA, MG, CP ####[address] [place] [address] lab Director: Samuel Ayers MD Erythrocyte distribution width (RBC) [Ratio] 16.3 % High 11.8-14.4 [facility] Comment on above: Performed By: #### V NCT, CDP, ANURADHA, MG, CP ####[address] [place] [address] lab Director: Samuel Ayers MD Hematocrit (Bld) [Volume fraction] 27.0 % Low 36.3-47.1 [facility] Comment on above: Performed By: #### V NCT, CDP, ANURADHA, MG, CP ####[address] , [facility]83 lab Director: Samuel Ayers MD Hemoglobin (Bld) [Mass/Vol] 8.6 g/dL Low 11.9-15.1 [facility] Comment on above: Performed By: #### V NCT, CDP, ANURADHA, MG, CP ####[address] , [facility]83 lab Director: Samuel Ayers MD Immature granulocytes/100 WBC (Bld) 0 % Normal 0 [facility] Comment on above: Performed By: #### V NCT, CDP, ANURADHA, MG, CP ####[address] , [facility]83 lab Director: Samuel Ayers MD Lymphocytes (Bld) [#/Vol] 2.02 10*3/uL Normal 1.10-3.70 [facility] Comment on above: Performed By: #### V NCT, CDP, ANURADHA, MG, CP ####[address] , [facility]83 lab Director: Samuel Ayers MD Lymphocytes/100 WBC (Bld) 31 % Normal 24-43 [facility] Comment on above: Performed By: #### V NCT, CDP, ANURADHA, MG, CP ####[address] , [facility]83 lab Director: Samuel Ayers MD MCH (RBC) [Entitic mass] 27.1 pg Normal 25.2-33.5 [facility] Comment on above: Performed By: #### V NCT, CDP, ANURADHA, MG, CP ####[address] , [facility]83 lab Director: Samuel Ayers MD MCHC (RBC) [Mass/Vol] 31.9 g/dL Normal 28.4-34.8 [facility] Comment on above: Performed By: #### V NCT, CDP, ANURADHA, MG, CP ####[address] [place] [address] lab Director: Samuel Ayers MD MCV (RBC) [Entitic vol] 85.2 fL Normal 82.6-102.9 [facility] Comment on above: Performed By: #### V NCT, CDP, ANURADHA, MG, CP ####[address] , [place] 2603383 Lab Director: Samuel Ayers MD Monocytes (Bld) [#/Vol] 0.52 10*3/uL Normal 0.10-1.20 [facility] Comment on above: Performed By: #### V NCT, CDP, ANURADHA, MG, CP ####[address] [place] [address] Lab Director: Samuel Ayers MD Monocytes/100 WBC (Bld) 8 % Normal 3-12 [facility] Comment on above: Performed By: #### V NCT, CDP, ANURADHA, MG, CP ####[address] , [facility]95([facility])[phone] Director: Samuel Ayers MD Neutrophil (Seg) 56 % Normal 36-65 [facility] Comment on above: Performed By: #### V NCT, CDP, ANURADHA, MG, CP ####[address] , [place] 8139483 Lab Director: Samuel Ayers MD NRBC Automated 0.0 per [address] [facility] Comment on above: Performed By: #### V NCT, CDP, ANURADHA, MG, CP ####[address] , [place] 6098783 Lab Director: Samuel Ayers MD Platelet mean volume (Bld) [Entitic vol] 11.5 fL Normal 8.1-13.5 [facility] Comment on above: Performed By: #### V NCT, CDP, ANURADHA, MG, CP ####[address] , [place] 3747083 Lab Director: Samuel Ayers MD Platelets (Bld) [#/Vol] 283 10*3/uL Normal 138-453 [facility] Comment on above: Performed By: #### V NCT, CDP, ANURADHA, MG, CP ####[address] , [place] 7843783 Lab Director: Samuel Ayers MD RBC (d) [#/Vol] 3.17 10*6/uL Low 3.95-5.11 [facility] Comment on above: Performed By: #### V NCT, CDP, ANURADHA, MG, CP ####[address] [place] [address] Lab Director: Samuel Ayers MD WBC (d) [#/Vol] 6.6 10*3/uL Normal 3.5-11.3 [facility] Comment on above: Performed By: #### V NCT, CDP, ANURADHA, MG, CP ####[address] , [facility]60([facility])[phone] Director: Samuel Ayers MD Comp Metabolic Profon 2022 Albumin [Mass/Vol] 4.2 g/dL Normal 3.5-5.2 [facility] Comment on above: Performed By: #### V NCT, CDP, ANURADHA, MG, CP ####[address] , [place] 5384383 [facility] Director: Samuel Ayers MD Albumin/Glob Ratio 1.1 Normal 1.0-2.5 [facility] Comment on above: Performed By: #### V NCT, CDP, ANURADHA, MG, CP ####[address] , [place] 9705183 Lab Director: Samuel Ayers MD Alkaline Phos 138 U/L High 35-104 [facility] Comment on above: Performed By: #### V NCT, CDP, ANURADHA, MG, CP ####[address] [place] [address] lab Director: Samuel Ayers MD ALT [Catalytic activity/Vol] 26 U/L Normal 5-33 [facility] Comment on above: Performed By: #### V NCT, CDP, ANURADHA, MG, CP ####[address] [place] [address] lab Director: Samuel Ayers MD Anion gap [Moles/Vol] 13 mmol/L Normal 9-17 [facility] Comment on above: Performed By: #### V NCT, CDP, ANURADHA, MG, CP ####[address] , [place] 4425283 lab Director: Samuel Ayers MD AST [Catalytic activity/Vol] 29 U/L Normal <32 [facility] Comment on above: Performed By: #### V NCT, CDP, ANURADHA, MG, CP ####[address] , [place] 4384483 lab Director: Samuel Ayers MD Bilirubin [Mass/Vol] 0.5 mg/dL Normal 0.3-1.2 [facility] Comment on above: Performed By: #### V NCT, CDP, ANURADHA, MG, CP ####[address] , [place] [id number] lab Director: Samuel Ayers MD BUN/CRE Ratio 37 High 9-20 [facility] Comment on above: Performed By: #### V NCT, CDP, ANURADHA, MG, CP ####[address] , [place] 3676083 lab Director: Samuel Ayers MD Calcium [Mass/Vol] 9.9 mg/dL Normal 8.6-10.4 [facility] Comment on above: Performed By: #### V NCT, CDP, ANURADHA, MG, CP ####[address] , [place] 4288083 lab Director: Samuel Ayers MD Chloride [Moles/Vol] 105 mmol/L Normal 98-107 [facility] Comment on above: Performed By: #### V NCT, CDP, ANURADHA, MG, CP ####[address] [place] [address] lab Director: Samuel Ayers MD CO2 [Moles/Vol] 23 mmol/L Normal 20-31 [facility] Comment on above: Performed By: #### V NCT, CDP, ANURADHA, MG, CP ####[address] 7491583 lab Director: Samuel Ayers MD Creatinine [Mass/Vol] 1.62 mg/dL High 0.50-0.90 [facility] Comment on above: Performed By: #### V NCT, CDP, ANURADHA, MG, CP ####[address] , [place] 1231483 lab Director: Samuel Ayers MD GFR/1.73 sq M.predicted among non-blacks MDRD (S/P/Bld) [Vol rate/Area] 37 mL/min/{1.73_m2} Low >60 [facility] Comment on above: Result Comment: Thes e results are not intended for use in patients <18 years of age.eGFR results are calculated without a race factor using the 2020 CKD-EPI equation.Careful clinical correlation is recommended, particularly when comparing to results calculated using previous equations.The CKD-EPI equation is less accurate in patients with extremes of muscle mass, extra-renal metabolism of creatine, excessive creatine ingestion, or following therapy that affects renal tubular secretion. Performed By: #### V NCT, CDP, ANURADHA, MG, CP ####[address] , [place] 4328983 lab Director: Samuel Ayers MD Glucose [Mass/Vol] 133 mg/dL High 70-99 [facility] Comment on above: Performed By: #### V NCT, CDP, ANURADHA, MG, CP ####[address] , [place] 2392783 Lab Director: Samuel Ayers MD Potassium [Moles/Vol] 3.1 mmol/L Low 3.7-5.3 [facility] Comment on above: Performed By: #### V NCT, CDP, ANURADHA, MG, CP ####[address] , [place] 1291183 lab Director: Samuel Ayers MD Protein [Mass/Vol] 8.0 g/dL Normal 6.4-8.3 [facility] Comment on above: Performed By: #### V NCT, CDP, ANURADHA, MG, CP ####[address] , [place] 7856083 lab Director: Samuel Ayers MD Sodium [Moles/Vol] 141 mmol/L Normal 135-144 [facility] Comment on above: Performed By: #### V NCT, CDP, ANURADHA, MG, CP ####[address] , [place] [id number] lab Director: Samuel Ayers MD Urea nitrogen [Mass/Vol] 60 mg/dL High 03-28 [facility] Comment on above: Performed By: #### V NCT, CDP, ANURADHA, MG, CP ####[address] , [place] 8463083 lab Director: Samuel Ayers MD Magnesiumon 03-28-2023 Magnesium [Mass/Vol] 1.8 mg/dL Normal 1.6-2.6 [facility] Comment on above: Performed By: #### V NCT, CDP, ANURADHA, MG, CP ####[address] , [place] 3817883 lab Director: Samuel Ayers MD Phosphorus, Inorg.on 023 Phosphorus, Inorg. 3.3 mg/dL Normal 2.6-4.5 [facility] Comment on above: Performed By: #### V NCT, CDP, ANURADHA, MG, CP ####[address] , [place] 8074283 Lab Director: Samuel Ayers MD Vancomycin Troughon 03-28-20 Vancomycin Trough 13.8 ug/mL Normal 10.0-20.0 [facility] Comment on above: Result Comment: High er trough serum vancomycin concentrations of 15-20 ug/mL are recommended for complicated infections such as bacteremia, endocarditis, osteomyelitis, meningitis, and hospital acquired pneumonia. Performed By: #### V NCT, CDP, ANUARDHA, MG, CP ####[address] , [place] 4205383 Lab Director: Samuel Ayers MD CNPNon 03-21-2023 CNPN Normal [facility] Comp Metabolic Profon 2022 Albumin [Mass/Vol] 4.3 g/dL Normal 3.5-5.2 [facility] Comment on above: Performed By: #### P HO, MG, CP ####[address] , [place] 7050783 Lab Director: Samuel Ayers MD Albumin/Glob Ratio 1.3 Normal 1.0-2.5 [facility] Comment on above: Performed By: #### P HO, MG, CP ####[address] [place] [address] Lab Director: Samuel Ayers MD Alkaline Phos 148 U/L High 35-104 [facility] Comment on above: Performed By: #### P HO, MG, CP ####[address] , [place] 5666783 Lab Director: Samuel Ayers MD ALT [Catalytic activity/Vol] 19 U/L Normal 5-33 [facility] Comment on above: Performed By: #### P HO, MG, CP ####[address] , [place] 6460683 Lab Director: Samuel Ayers MD Anion gap [Moles/Vol] 17 mmol/L Normal 9-17 [facility] Comment on above: Performed By: #### P HO, MG, CP ####[address] , [place] 2122483 [facility] Director: Samuel Ayers MD AST [Catalytic activity/Vol] 20 U/L Normal <32 [facility] Comment on above: Performed By: #### P HO, MG, CP ####[address] , [place] 4304583 lab Director: Samuel Ayers MD Bilirubin [Mass/Vol] 0.5 mg/dL Normal 0.3-1.2 [facility] Comment on above: Performed By: #### P HO, MG, CP ####[address] , [place] 4012283 lab Director: Samuel Ayers MD BUN/CRE Ratio 36 High 9-20 [facility] Comment on above: Performed By: #### P HO, MG, CP ####[address] , [place] 1205283 lab Director: Samuel Ayers MD Calcium [Mass/Vol] 10.2 mg/dL Normal 8.6-10.4 [facility] Comment on above: Performed By: #### P HO, MG, CP ####[address] , [place] 2839783 lab Director: Samuel Ayers MD Chloride [Moles/Vol] 104 mmol/L Normal 98-107 [facility] Comment on above: Performed By: #### P HO, MG, CP ####[address] , [place] [id number] lab Director: Samuel Ayers MD CO2 [Moles/Vol] 19 mmol/L Low 20-31 [facility] Comment on above: Performed By: #### P HO, MG, CP ####[address] [place] [address] Lab Director: Samuel Ayers MD Creatinine [Mass/Vol] 1.91 mg/dL High 0.50-0.90 [facility] Comment on above: Performed By: #### P HO, MG, CP ####[address] [place] [address] Lab Director: Samuel Ayers MD GFR/1.73 sq M.predicted among non-blacks MDRD (S/P/Bld) [Vol rate/Area] 30 mL/min/{1.73_m2} Low >60 [facility] Comment on above: Result Comment: Thes e results are not intended for use in patients <18 years of age.eGFR results are calculated without a race factor using the 2020 CKD-EPI equation.Careful clinical correlation is recommended, particularly when comparing to results calculated using previous equations.The CKD-EPI equation is less accurate in patients with extremes of muscle mass, extra-renal metabolism of creatine, excessive creatine ingestion, or following therapy that affects renal tubular secretion. Performed By: #### P HO, MG, CP ####[address] [place] [address] Lab Director: Samuel Ayers MD Glucose [Mass/Vol] 101 mg/dL High 70-99 [facility] Comment on above: Performed By: #### P HO, MG, CP ####[address] , [place] 7362783 Lab Director: Samuel Ayers MD Potassium [Moles/Vol] 3.9 mmol/L Normal 3.7-5.3 [facility] Comment on above: Performed By: #### P HO, MG, CP ####[address] [place] [address] Lab Director: Samuel Ayers MD Protein [Mass/Vol] 7.7 g/dL Normal 6.4-8.3 [facility] Comment on above: Performed By: #### P HO, MG, CP ####[address] , [place] 8286783 Lab Director: Samuel Ayers MD Sodium [Moles/Vol] 140 mmol/L Normal 135-144 [facility] Comment on above: Performed By: #### P HO, MG, CP ####[address] , [facility]83[facility])[phone] Director: Samuel Ayers MD Urea nitrogen [Mass/Vol] 68 mg/dL High 6-20 [facility] Comment on above: Performed By: #### P HO, MG, CP ####[address] , [facility]39([facility])[phone] Director: Samuel Ayers MD Magnesiumon 03-21-2023 Magnesium [Mass/Vol] 1.8 mg/dL Normal 1.6-2.6 [facility] Comment on above: Performed By: #### P HO, MG, CP ####[address] , [place] [address])[phone] Director: Samuel Ayers MD Phosphorus, Inorg.on 023 Phosphorus, Inorg. 4.1 mg/dL Normal 2.6-4.5 [facility] Comment on above: Performed By: #### P HO, MG, CP ####[address] , [facility]16([facility])[phone] Director: Samuel Ayers MD CBC with Diffon 03-20-2023 Abs. Basophil 0.05 k/uL Normal 0.00-0.20 [facility] Comment on above: Performed By: #### V NCT, CREG, CDP ####[address] , [place] 0791083 Lab Director: Samuel Ayers MD Abs.Imm.Granulocyte <0.03 Normal 0.00-0.30 [facility] Comment on above: Performed By: #### V BOBO CRELeo, CDP ####[address] , [place] [address])[phone] Director: Samuel Ayers MD Abs.Neutrophil (Seg) 2.88 k/uL Normal 1.50-8.10 [facility] Comment on above: Performed By: #### V OBBO CRELeo, CDP ####[address] , [place] [address])[phone] Director: Samuel Ayers MD Basophils/100 WBC (Bld) 1 % Normal 0-2 [facility] Comment on above: Performed By: #### V CRIS BROUSSARD, CDP ####[address] , [place] [address])[phone] Director: Samuel Ayers MD Eosinophils (Bld) [#/Vol] 0.24 10*3/uL Normal 0.00-0.44 [facility] Comment on above: Performed By: #### V CRIS BROUSSARD, CDP ####[address] , [place] [address])[phone] Director: Samuel Ayers MD Eosinophils/100 WBC (Bld) 4 % Normal 1-4 [facility] Comment on above: Performed By: #### V CRIS BROUSSARD, CDP ####[address] , [place] [address])[phone] Director: Samuel Ayers MD Erythrocyte distribution width (RBC) [Ratio] 15.9 % High 11.8-14.4 [facility] Comment on above: Performed By: #### V BOBO CRELeo, CDP ####[address] , [place] [address])[phone] Director: Samuel Ayers MD Hematocrit (Bld) [Volume fraction] 25.8 % Low 36.3-47.1 [facility] Comment on above: Performed By: #### V BOBO CRELeo, CDP ####[address] , [place] 5857783 Lab Director: Samuel Ayers MD Hemoglobin (Bld) [Mass/Vol] 8.2 g/dL Low 11.9-15.1 [facility] Comment on above: Performed By: #### V BOBO, CREG, CDP ####[address] , [facility]83 Lab Director: Samuel Ayers MD Immature granulocytes/100 WBC (Bld) 0 % Normal 0 [facility] Comment on above: Performed By: #### V BOBO CRELeo, CDP ####[address] , [place] [address] Lab Director: Samuel Ayers MD Lymphocytes (Bld) [#/Vol] 2.46 10*3/uL Normal 1.10-3.70 [facility] Comment on above: Performed By: #### V BOBO CREG, CDP ####[address] , [facility]83 Lab Director: Samuel Ayers MD Lymphocytes/100 WBC (Bld) 39 % Normal 24-43 [facility] Comment on above: Performed By: #### V BOBO CRELeo, CDP ####[address] , [place] [address])[phone] Director: Samuel Ayers MD MCH (RBC) [Entitic mass] 27.2 pg Normal 25.2-33.5 [facility] Comment on above: Performed By: #### V NCT CRELeo, CDP ####[address] , [place] 4503283 Lab Director: Samuel Ayers MD MCHC (RBC) [Mass/Vol] 31.8 g/dL Normal 28.4-34.8 [facility] Comment on above: Performed By: #### V NCT, CREG, CDP ####[address] [place] [address] Lab Director: Samuel Ayers MD MCV (RBC) [Entitic vol] 85.4 fL Normal 82.6-102.9 [facility] Comment on above: Performed By: #### V CRIS BROUSSARD, CDP ####[address] , [place] 4242783 Lab Director: Samuel Ayers MD Monocytes (Bld) [#/Vol] 0.65 10*3/uL Normal 0.10-1.20 [facility] Comment on above: Performed By: #### V CRIS BROUSSARD, CDP ####[address] [place] [address] Lab Director: Samuel Ayers MD Monocytes/100 WBC (Bld) 10 % Normal 3-12 [facility] Comment on above: Performed By: #### V CRIS BROUSSARD, CDP ####[address] , [place] [phone] Director: Samuel Ayers MD Neutrophil (Seg) 46 % Normal 36-65 [facility] Comment on above: Performed By: #### V CRIS BROUSSARD, CDP ####[address] , [place] 7248583 Lab Director: Samuel Ayers MD NRBC Automated 0.0 per [address] [facility] Comment on above: Performed By: #### V CRIS BROUSSARD, CDP ####[address] , [place] [id number] Lab Director: Samuel Ayers MD Platelet mean volume (Bld) [Entitic vol] 11.2 fL Normal 8.1-13.5 [facility] Comment on above: Performed By: #### V CRIS BROUSSARD, CDP ####[address] , [place] [id number] Lab Director: Samuel Ayers MD Platelets (Bld) [#/Vol] 365 10*3/uL Normal 138-453 [facility] Comment on above: Performed By: #### V CRIS BROUSSARD, CDP ####[address] , [place] 6970483 Lab Director: Samuel Ayers MD RBC (Bld) [#/Vol] 3.02 10*6/uL Low 3.95-5.11 [facility] Comment on above: Performed By: #### V CRIS BROUSSARD, CDP ####[address] , [place] 6708183 Lab Director: Samuel Ayers MD WBC (Bld) [#/Vol] 6.3 10*3/uL Normal 3.5-11.3 [facility] Comment on above: Performed By: #### V CRIS BROUSSARD, CDP ####[address] , [place] 5486783 Lab Director: Samuel Ayers MD Creatinine w/GFRon 3 Creatinine [Mass/Vol] 2.01 mg/dL High 0.50-0.90 [facility] Comment on above: Performed By: #### V CRIS BROUSSARD, CDP ####[address] , [facility]83 Lab Director: Samuel Ayers MD GFR/1.73 sq M.predicted among non-blacks MDRD (S/P/Bld) [Vol rate/Area] 29 mL/min/{1.73_m2} Low >60 [facility] Comment on above: Result Comment: Thes e results are not intended for use in patients <18 years of age.eGFR results are calculated without a race factor using the 2020 CKD-EPI equation.Careful clinical correlation is recommended, particularly when comparing to results calculated using previous equations.The CKD-EPI equation is less accurate in patients with extremes of muscle mass, extra-renal metabolism of creatine, excessive creatine ingestion, or following therapy that affects renal tubular secretion. Performed By: #### V NCT, CREG, CDP ####[address] [place] [address] lab Director: Samuel Ayers MD Vancomycin Troughon 03-20-20 23 Vancomycin Trough 12.2 ug/mL Normal 10.0-20.0 [facility] Comment on above: Result Comment: High er trough serum vancomycin concentrations of 15-20 ug/mL are recommended for complicated infections such as bacteremia, endocarditis, osteomyelitis, meningitis, and hospital acquired pneumonia. Performed By: #### V NCT, CREG, CDP ####[address] [place] [id number] lab Director: Samuel Ayers MD CBC with Diffon 03-16-2023 Abs. Basophil 0.07 k/uL Normal 0.00-0.20 [facility] Comment on above: Performed By: #### V NCT, MG, CDP, CP, ANURADHA ####[address] , [place] [address] lab Director: Samuel Ayers MD Abs.Imm.Granulocyte <0.03 Normal 0.00-0.30 [facility] Comment on above: Performed By: #### V NCT, MG, CDP, CP, ANURADHA ####[address] , [facility]83 lab Director: Samuel Ayers MD Abs.Neutrophil (Seg) 3.64 k/uL Normal 1.50-8.10 [facility] Comment on above: Performed By: #### V NCT, MG, CDP, CP, ANURADHA ####[address] [place] [id number] lab Director: Samuel Ayers MD Basophils/100 WBC (Bld) 1 % Normal 0-2 [facility] Comment on above: Performed By: #### V NCT, MG, CDP, CP, ANURADHA ####[address] , [facility]83 [facility] Director: Samuel Ayers MD Eosinophils (Bld) [#/Vol] 0.33 10*3/uL Normal 0.00-0.44 [facility] Comment on above: Performed By: #### V NCT, MG, CDP, CP, ANURADHA ####[address] , [facility]83 Lab Director: Samuel Ayers MD Eosinophils/100 WBC (Bld) 5 % High 1-4 [facility] Comment on above: Performed By: #### V NCT, MG, CDP, CP, ANURADHA ####[address] , [facility]83 lab Director: Samuel Ayers MD Erythrocyte distribution width (RBC) [Ratio] 15.4 % High 11.8-14.4 [facility] Comment on above: Performed By: #### V NCT, MG, CDP, CP, ANURADHA ####[address] , [place] [address] lab Director: Samuel Ayers MD Hematocrit (Bld) [Volume fraction] 26.5 % Low 36.3-47.1 [facility] Comment on above: Performed By: #### V NCT, MG, CDP, CP, ANURADHA ####[address] , [place] [address] Lab Director: Samuel Ayers MD Hemoglobin (Bld) [Mass/Vol] 8.4 g/dL Low 11.9-15.1 [facility] Comment on above: Performed By: #### V NCT, MG, CDP, CP, ANURADHA ####[address] , [facility]83 Lab Director: Samuel Ayers MD Immature granulocytes/100 WBC (Bld) 0 % Normal 0 [facility] Comment on above: Performed By: #### V NCT, MG, CDP, CP, ANURADHA ####[address] , [place] 6323083 Lab Director: Samuel Ayers MD Lymphocytes (Bld) [#/Vol] 2.43 10*3/uL Normal 1.10-3.70 [facility] Comment on above: Performed By: #### V NCT, MG, CDP, CP, ANURADHA ####[address] , [facility]14([facility])[phone] Director: Samuel Ayers MD Lymphocytes/100 WBC (Bld) 34 % Normal 24-43 [facility] Comment on above: Performed By: #### V NCT, MG, CDP, CP, ANURADHA ####[address] , [facility]82([facility])[phone] Director: Samuel Ayers MD MCH (RBC) [Entitic mass] 27.1 pg Normal 25.2-33.5 [facility] Comment on above: Performed By: #### V NCT, MG, CDP, CP, ANURADHA ####[address] , [facility]44([facility])[phone] Director: Samuel Ayers MD MCHC (RBC) [Mass/Vol] 31.7 g/dL Normal 28.4-34.8 [facility] Comment on above: Performed By: #### V NCT, MG, CDP, CP, ANURADHA ####[address] , [facility]23([facility])[phone] Director: Samuel Ayers MD MCV (RBC) [Entitic vol] 85.5 fL Normal 82.6-102.9 [facility] Comment on above: Performed By: #### V NCT, MG, CDP, CP, ANURADHA ####[address] , [place] 2638283 Lab Director: Samuel Ayers MD Monocytes (Bld) [#/Vol] 0.58 10*3/uL Normal 0.10-1.20 [facility] Comment on above: Performed By: #### V NCT, MG, CDP, CP, ANURADHA ####[address] , [place] 8659683 Lab Director: Samuel Ayers MD Monocytes/100 WBC (Bld) 8 % Normal 3-12 [facility] Comment on above: Performed By: #### V NCT, MG, CDP, CP, ANURADHA ####[address] , [facility]83 Lab Director: Samuel Ayers MD Neutrophil (Seg) 52 % Normal 36-65 [facility] Comment on above: Performed By: #### V NCT, MG, CDP, CP, ANURADHA ####[address] , [place] 4673983 Lab Director: Samuel Ayers MD NRBC Automated 0.0 per [address] [facility] Comment on above: Performed By: #### V NCT, MG, CDP, CP, ANURADHA ####[address] , [place] 9301083 Lab Director: Samuel Ayers MD Platelet mean volume (Bld) [Entitic vol] 11.2 fL Normal 8.1-13.5 [facility] Comment on above: Performed By: #### V NCT, MG, CDP, CP, ANURADHA ####[address] , [facility]83[facility])[phone] Director: Samuel Ayers MD Platelets (Bld) [#/Vol] 327 10*3/uL Normal 138-453 [facility] Comment on above: Performed By: #### V NCT, MG, CDP, CP, ANURADHA ####[address] , [place] 0555783 Lab Director: Samuel Ayers MD RBC (Bld) [#/Vol] 3.10 10*6/uL Low 3.95-5.11 [facility] Comment on above: Performed By: #### V NCT, MG, CDP, CP, ANURADHA ####[address] , [place] 5561583 Lab Director: Samuel Ayers MD WBC (Bld) [#/Vol] 7.1 10*3/uL Normal 3.5-11.3 [facility] Comment on above: Performed By: #### V NCT, MG, CDP, CP, ANURADHA ####[address] , [place] 1870983 Lab Director: Samuel Ayers MD Comp Metabolic Profon 2022 Albumin [Mass/Vol] 4.2 g/dL Normal 3.5-5.2 [facility] Comment on above: Performed By: #### V NCT, MG, CDP, CP, ANURADHA ####[address] , [place] 4293483 Lab Director: Samuel Ayers MD Albumin/Glob Ratio 1.2 Normal 1.0-2.5 [facility] Comment on above: Performed By: #### V NCT, MG, CDP, CP, ANURADHA ####[address] , [place] 5152583 Lab Director: Samuel Ayers MD Alkaline Phos 182 U/L High 35-104 [facility] Comment on above: Performed By: #### V NCT, MG, CDP, CP, ANURADHA ####[address] , [place] 3106883 Lab Director: Samuel Ayers MD ALT [Catalytic activity/Vol] 24 U/L Normal 5-33 [facility] Comment on above: Performed By: #### V NCT, MG, CDP, CP, ANURADHA ####[address] [place] [address] Lab Director: Samuel Ayers MD Anion gap [Moles/Vol] 17 mmol/L Normal 9-17 [facility] Comment on above: Performed By: #### V NCT, MG, CDP, CP, ANURADHA ####[address] , [place] 9156183 lab Director: Samuel Ayers MD AST [Catalytic activity/Vol] 23 U/L Normal <32 [facility] Comment on above: Performed By: #### V NCT, MG, CDP, CP, ANURADHA ####[address] , [place] 1011783 lab Director: Samuel Ayers MD Bilirubin [Mass/Vol] 0.4 mg/dL Normal 0.3-1.2 [facility] Comment on above: Performed By: #### V NCT, MG, CDP, CP, ANURADHA ####[address] , [place] 5888183 lab Director: Samuel Ayers MD BUN/CRE Ratio 27 High 9-20 [facility] Comment on above: Performed By: #### V NCT, MG, CDP, CP, ANURADHA ####[address] , [place] 2869683 lab Director: Samuel Ayers MD Calcium [Mass/Vol] 10.2 mg/dL Normal 8.6-10.4 [facility] Comment on above: Performed By: #### V NCT, MG, CDP, CP, ANURADHA ####[address] , [facility]83 lab Director: Samuel Ayers MD Chloride [Moles/Vol] 100 mmol/L Normal 98-107 [facility] Comment on above: Performed By: #### V NCT, MG, CDP, CP, ANURADHA ####[address] , [place] 0563283 lab Director: Samuel Ayers MD CO2 [Moles/Vol] 22 mmol/L Normal 20-31 [facility] Comment on above: Performed By: #### V NCT, MG, CDP, CP, ANURADHA ####[address] [place] [address] lab Director: Samuel Ayers MD Creatinine [Mass/Vol] 3.08 mg/dL High 0.50-0.90 [facility] Comment on above: Performed By: #### V NCT, MG, CDP, CP, ANURADHA ####[address] [place] [address] lab Director: Samuel Ayers MD GFR/1.73 sq M.predicted among non-blacks MDRD (S/P/Bld) [Vol rate/Area] 17 mL/min/{1.73_m2} Low >60 [facility] Comment on above: Result Comment: Thes e results are not intended for use in patients <18 years of age.eGFR results are calculated without a race factor using the 2020 CKD-EPI equation.Careful clinical correlation is recommended, particularly when comparing to results calculated using previous equations.The CKD-EPI equation is less accurate in patients with extremes of muscle mass, extra-renal metabolism of creatine, excessive creatine ingestion, or following therapy that affects renal tubular secretion. Performed By: #### V NCT, MG, CDP, CP, ANURADHA ####[address] [place] [address] lab Director: Samuel Ayers MD Glucose [Mass/Vol] 131 mg/dL High 70-99 [facility] Comment on above: Performed By: #### V NCT, MG, CDP, CP, ANURADHA ####[address] [place] [address] lab Director: Samuel Ayers MD Potassium [Moles/Vol] 4.5 mmol/L Normal 3.7-5.3 [facility] Comment on above: Performed By: #### V NCT, MG, CDP, CP, ANURADHA ####[address] [place] [address] lab Director: Samuel Ayers MD Protein [Mass/Vol] 7.7 g/dL Normal 6.4-8.3 [facility] Comment on above: Performed By: #### V NCT, MG, CDP, CP, ANURADHA ####[address] [place] [address] lab Director: Samuel Ayers MD Sodium [Moles/Vol] 139 mmol/L Normal 135-144 [facility] Comment on above: Performed By: #### V NCT, MG, CDP, CP, ANURADHA ####[address] , [place] 5930083 lab Director: Samuel Ayers MD Urea nitrogen [Mass/Vol] 82 mg/dL High 6-20 [facility] Comment on above: Performed By: #### V NCT, MG, CDP, CP, ANURADHA ####[address] , [place] 9386483 lab Director: Samuel Ayers MD Magnesiumon 03-16-2023 Magnesium [Mass/Vol] 1.8 mg/dL Normal 1.6-2.6 [facility] Comment on above: Performed By: #### V NCT, MG, CDP, CP, ANURADHA ####[address] , [place] 8755783 lab Director: Samuel Ayers MD Phosphorus, Inorg.on 023 Phosphorus, Inorg. 5.0 mg/dL High 2.6-4.5 [facility] Comment on above: Performed By: #### V NCT, MG, CDP, CP, ANURADHA ####[address] [place] [address] lab Director: Samuel Ayers MD Vancomycin Troughon 03-16-20 23 Vancomycin Trough 4.3 ug/mL Critically low 10.0-20.0 [facility] Comment on above: Result Comment: High er trough serum vancomycin concentrations of 15-20 ug/mL are recommended for complicated infections such as bacteremia, endocarditis, osteomyelitis, meningitis, and hospital acquired pneumonia. Performed By: #### V NCT, MG, CDP, CP, ANURADHA ####[facility] [place] , [place] [address] [facility] Director: Samuel Ayers MD Basic metabolic 2000 panelon 03-14-2023 Anion gap [Moles/Vol] 15 mmol/L Normal 9-18 [facility] Comment on above: Order Comment: Speci men Type: BLOOD SPECIMENOrdering Facility: [facility] Address: [address] Performed By: #### 2 4321-2, , 2776-10 ####[facility] LABCLIA [id number] [place] [address] [place] Calcium [Mass/Vol] 9.9 mg/dL Normal 8.5-10.[address] [facility] Comment on above: Order Comment: Speci men Type: BLOOD SPECIMENOrdering Facility: [facility] Address: [address] Performed By: #### 2 4321-2, , 2776-10 ####[facility] LABIA [id number] [place] [address] [place] Chloride [Moles/Vol] 103 mmol/L Normal 97-105 [facility] Comment on above: Order Comment: Speci men Type: BLOOD SPECIMENOrdering Facility: [facility] Address: [address] Performed By: #### 2 4321-2, , 2776-10 ####[facility] LABCLIA [id number] [place] [address] [place] CO2 [Moles/Vol] 22 mmol/L Normal 22-30 [facility] Comment on above: Order Comment: Speci men Type: BLOOD SPECIMENOrdering Facility: [facility] Address: [address] Performed By: #### 2 4321-2, , 2776-10 ####[facility] LABIA [id number] [place] [address] [place] Creatinine [Mass/Vol] 4.20 mg/dL High 0.58-0.96 [facility] Comment on above: Order Comment: Matti bernal Type: BLOOD SPECIMENOrdering Facility: [facility] Address: [address] [place] [address] Performed By: #### 2 4321-2, , 2776-10 ####[facility] LABIA [id number] [place] [address] [place] ESTIMATED GLOMERULAR FILTRATION RATE 12 mL/min/1.73m??? Low >=60 [facility] Comment on above: Order Comment: Matti bernal Type: BLOOD SPECIMENOrdering Facility: [facility] Address: [address] [place] [address] Result Comment: Karen mated Glomerular Filtration Rate (eGFR) is calculated using the 2020 CKD-EPI creatinine equation. This equation utilizes serum creatinine, sex, and age as parameters. The creatinine assay has traceable calibration to isotope dilution-mass spectrometry. Refer to KDIGO guidelines for clinical interpretation. In patients with unstable renal function, e.g. those with acute kidney injury, the eGFR may not accurately reflect actual GFR. Performed By: #### 2 4321-2, , 2776-10 ####[facility] LABIA [id number] [place] [address] [place] Glucose [Mass/Vol] 121 mg/dL High 74-[address] [facility] Comment on above: Order Comment: Matti bernal Type: BLOOD SPECIMENOrdering Facility: [facility] Address: [address] [place] [address] Result Comment: The [place] Diabetes Association (ADA) provides guidance for cutoff values for fasting glucose and random glucose. The ADA defines fasting as no caloric intake for at least 8 hours. Fasting plasma glucose results between 100 to 125 mg/dL indicate increased risk for diabetes (prediabetes).Fasting plasma glucose results greater than or equal to 126 mg/dL meet the criteria for diagnosis of diabetes. In the absence of unequivocal hyperglycemia, results should be confirmed by repeat testing. In a patient with classic symptoms of hyperglycemia or hyperglycemic crisis, random plasma glucose results greater than or equal to 200 mg/dL meet the criteria for diagnosis of diabetes.Reference: Standards of Medical Care in Diabetes 2016, [place] [employer]. Diabetes Care. 2016.39(Suppl 1). Performed By: #### 2 4320-2, , 2776-10 ####[facility] LABCLIA [id number] [place] [address] [place] Potassium [Moles/Vol] 4.1 mmol/L Normal 3.7-5.1 [facility] Comment on above: Order Comment: Speci men Type: BLOOD SPECIMENOrdering Facility: [facility] Address: [address] [place] [address] Performed By: #### 2 4320-11, , 2776-10 ####[facility] LABIA [id number] [place] [address] [place] Sodium [Moles/Vol] 140 mmol/L Normal 136-[address] [facility] Comment on above: Order Comment: Sathishi men Type: BLOOD SPECIMENOrdering Facility: [facility] Address: [address] [place] [address] Performed By: #### 2 4320-2, , 2776-10 ####[facility] LABCLIA [id number] [place] [address] [place] Urea nitrogen [Mass/Vol] 70 mg/dL High 7-21 [facility] Comment on above: Order Comment: Speci men Type: BLOOD SPECIMENOrdering Facility: [facility] Address: [address] [place] [address] Performed By: #### 2 4320-2, , 2776-10 ####[facility] LABCLIA [id number] [place] [address] [place] CASE MANAGEMon 03-14-2023 CASE MANAGEM Normal [facility] CBC panel Auto (Bld)on 03-14 Erythrocyte distribution width (RBC) [Ratio] 15.4 % High 11.5-15.0 [facility] Comment on above: Order Comment: Speci men Type: BLOOD SPECIMENOrdering Facility: [facility] Address: [address] [place] [address] Performed By: #### 5 8410-2 ####[facility] LABIA [id number] [place] [address] [place] Hematocrit (Bld) [Volume fraction] 23.3 % Low 36.0-46.0 [facility] Comment on above: Order Comment: Speci men Type: BLOOD SPECIMENOrdering Facility: [facility] Address: [address] [place] [address] Performed By: #### 5 8410-2 ####[facility] LABIA [id number] [place] [address] [place] Hemoglobin (Bld) [Mass/Vol] 7.4 g/dL Low 11.5-15.5 [facility] Comment on above: Order Comment: Speci men Type: BLOOD SPECIMENOrdering Facility: [facility] Address: [address] [place] [address] Performed By: #### 5 8410-2 ####[facility] LABIA [id number] [place] [address] [place] MCH (RBC) [Entitic mass] 26.8 pg Normal 26.0-34.0 [facility] Comment on above: Order Comment: Speci men Type: BLOOD SPECIMENOrdering Facility: [facility] Address: [address] [place] [address] Performed By: #### 5 8410-2 ####[facility] LABIA [id number] [address] [id number] MCHC (RBC) [Mass/Vol] 31.8 g/dL Normal 30.5-36.0 [facility] Comment on above: Order Comment: Speci men Type: BLOOD SPECIMENOrdering Facility: [facility] Address: [address] [place], [place] [address] Performed By: #### 5 8410-2 ####[facility] LABCLIA [id number] [place] [address] [place] MCV (RBC) [Entitic vol] 84.4 fL Normal 80.0-100.0 [facility] Comment on above: Order Comment: Speci men Type: BLOOD SPECIMENOrdering Facility: [facility] Address: [address] [place], [place] [address] Performed By: #### 5 8410-2 ####[facility] LABCLIA [id number] [address] [place] Nucleated RBC (Bld) [#/Vol] 10*3/uL Normal <0.01 [facility] Comment on above: Order Comment: Speci men Type: BLOOD SPECIMENOrdering Facility: [facility] Address: [address] [place], [place] [address] Performed By: #### 5 8410-2 ####[facility] LABIA [id number] [place] [address] [place] Platelet mean volume (Bld) [Entitic vol] 10.7 fL Normal 9.0-12.7 [facility] Comment on above: Order Comment: Speci men Type: BLOOD SPECIMENOrdering Facility: [facility] Address: [address] [place], [place] [address] Performed By: #### 5 8410-2 ####[facility] LABCLIA [id number] [place] [address] [place] Platelets (Bld) [#/Vol] 252 10*3/uL Normal 150-400 [facility] Comment on above: Order Comment: Speci men Type: BLOOD SPECIMENOrdering Facility: [facility] Address: [address] [place] [address] Performed By: #### 5 8410-2 ####[facility] LABCLIA [id number] [place] [address] [place] RBC (Bld) [#/Vol] 2.76 10*6/uL Low 3.90-5.20 [facility] Comment on above: Order Comment: Speci men Type: BLOOD SPECIMENOrdering Facility: [facility] Address: [address] [place] [address] Performed By: #### 5 8410-2 ####[facility] LABCLIA [id number] [place] [address] [place] WBC (Bld) [#/Vol] 4.66 10*3/uL Normal 3.70-11.00 [facility] Comment on above: Order Comment: Speci men Type: BLOOD SPECIMENOrdering Facility: [facility] Address: [address] [place] [address] Performed By: #### 5 8410-2 ####[facility] LABCLIA [id number] [place] [address] [place] CNCOon 03-14-2023 CNCO Letter Text Normal [facility] CNDSon 03-14-2023 CNDS Normal [facility] CONSULT PROGon 03-14-2023 CONSULT PROG Normal [facility] CONSULT PROG Normal [facility] CONSULT PROG Normal [facility] Magnesium SerPl-mCncon 03-14 Magnesium [Mass/Vol] 2.0 mg/dL Normal 1.7-2.3 [facility] Comment on above: Order Comment: Speci men Type: BLOOD SPECIMENOrdering Facility: [facility] Address: [address] [place] [address] Performed By: #### 2 4321-2, 51859-4, 2777-1 ####[facility] LABCLIA [id number] [place] [id number] [place] Phosphate SerPl-ncon 03-14 Phosphate [Mass/Vol] 4.9 mg/dL High 2.7-4.8 [facility] Comment on above: Order Comment: Speci men Type: BLOOD SPECIMENOrdering Facility: [facility] Address: [address] [place] [address] Performed By: #### 2 4321-2, 82536-5, 2777-1 ####[facility] LABIA [id number] [place] [address] [place] Vancomycin Kelayres SerPl-ncon 03-14-2023 Vancomycin random [Mass/Vol] 7.6 ug/mL Low 10.0-20.0 [facility] Comment on above: Order Comment: Speci men Type: BLOOD SPECIMENOrdering Facility: [facility] Address: [address] [place] [address] Result Comment: Refe rence ranges and high/low indicator flags are provided as general guidelines only. The treating physician must determine appropriate target levels/dosing based on the specific clinical situation. Performed By: #### 4 091-5 ####[facility] LABIA [id number] [place] [address] [place] aPTT PPPon 03-14-2023 aPTT Coag (PPP) [Time] 59.1 s High 23.0-32.4 [facility] Comment on above: Order Comment: Speci men Type: BLOOD SPECIMENOrdering Facility: [facility] Address: [address] [place] [address] Performed By: #### 1 4979-9 ####[facility] LABIA [id number] [place] [address] [place] Basic metabolic 2000 panelon 03-13-2023 Anion gap [Moles/Vol] 15 mmol/L Normal 9-18 [facility] Comment on above: Order Comment: Speci men Type: BLOOD SPECIMENOrdering Facility: [facility] Address: [address] [place] [address] Performed By: #### 2 4321-2, 07735-4 ####[facility] LABCLIA [id number] [place] [address] [place] Calcium [Mass/Vol] 9.5 mg/dL Normal 8.5-10.[address] [facility] Comment on above: Order Comment: Speci men Type: BLOOD SPECIMENOrdering Facility: [facility] Address: [address] Performed By: #### 2 4321-2, 77009-5 ####[facility] LABCLIA [id number] [place] [address] [place] Chloride [Moles/Vol] 100 mmol/L Normal 97-105 [facility] Comment on above: Order Comment: Speci men Type: BLOOD SPECIMENOrdering Facility: [facility] Address: [address] [place] [address] Performed By: #### 2 4321-2, 79848-0 ####[facility] LABCLIA [id number] [place] [address] [place] CO2 [Moles/Vol] 24 mmol/L Normal 22-30 [facility] Comment on above: Order Comment: Speci men Type: BLOOD SPECIMENOrdering Facility: [facility] Address: [address] Performed By: #### 2 4321-2, 69761-3 ####[facility] LABCLIA [id number] [place] [address] [place] Creatinine [Mass/Vol] 5.21 mg/dL High 0.58-0.96 [facility] Comment on above: Order Comment: Speci men Type: BLOOD SPECIMENOrdering Facility: [facility] Address: [address] Performed By: #### 2 4321-2, 35767-4 ####[facility] LABCLIA [id number] [place] [address] [place] ESTIMATED GLOMERULAR FILTRATION RATE 9 mL/min/1.73m??? Low >=60 [facility] Comment on above: Order Comment: Matti bernal Type: BLOOD SPECIMENOrdering Facility: [facility] Address: [address] [place] [address] Result Comment: Karen mated Glomerular Filtration Rate (eGFR) is calculated using the 2020 CKD-EPI creatinine equation. This equation utilizes serum creatinine, sex, and age as parameters. The creatinine assay has traceable calibration to isotope dilution-mass spectrometry. Refer to KDIGO guidelines for clinical interpretation. In patients with unstable renal function, e.g. those with acute kidney injury, the eGFR may not accurately reflect actual GFR. Performed By: #### 2 4321-2, 33682-8 ####[facility] LABCLIA [id number] [place] [address] [place] Glucose [Mass/Vol] 105 mg/dL High 74-[address] [facility] Comment on above: Order Comment: Matti bernal Type: BLOOD SPECIMENOrdering Facility: [facility] Address: [address] [place] [address] Result Comment: The [place] Diabetes Association (ADA) provides guidance for cutoff values for fasting glucose and random glucose. The ADA defines fasting as no caloric intake for at least 8 hours. Fasting plasma glucose results between 100 to 125 mg/dL indicate increased risk for diabetes (prediabetes).Fasting plasma glucose results greater than or equal to 126 mg/dL meet the criteria for diagnosis of diabetes. In the absence of unequivocal hyperglycemia, results should be confirmed by repeat testing. In a patient with classic symptoms of hyperglycemia or hyperglycemic crisis, random plasma glucose results greater than or equal to 200 mg/dL meet the criteria for diagnosis of diabetes.Reference: Standards of Medical Care in Diabetes 2016, [place] [employer]. Diabetes Care. 2016.39(Suppl 1). Performed By: #### 2 4321-2, 27929-9 ####[facility] LABCLIA [id number] [place] [address] [place] Potassium [Moles/Vol] 4.6 mmol/L Normal 3.7-5.1 [facility] Comment on above: Order Comment: Speci men Type: BLOOD SPECIMENOrdering Facility: [facility] Address: [address] [place] [address] Performed By: #### 2 4321-2, 39096-8 ####[facility] LABCLIA [id number] [place] [address] [place] Sodium [Moles/Vol] 139 mmol/L Normal 136-[address] [facility] Comment on above: Order Comment: Speci men Type: BLOOD SPECIMENOrdering Facility: [facility] Address: [address] [place] [address] Performed By: #### 2 4321-2, 31514-7 ####[facility] LABCLIA [id number] [place] [address] [place] Urea nitrogen [Mass/Vol] 78 mg/dL High 7-21 [facility] Comment on above: Order Comment: Speci men Type: BLOOD SPECIMENOrdering Facility: [facility] Address: [address] [place] [address] Performed By: #### 2 4321-2, 54577-3 ####[facility] LABCLIA [id number] [place] [address] [place] CBC W Auto Differential pane l (Bld)on 03-13-2023 Basophils (Bld) [#/Vol] 0.03 10*3/uL Normal <0.11 [facility] Comment on above: Order Comment: Speci men Type: BLOOD SPECIMENOrdering Facility: [facility] Address: [address] [place] [address] Performed By: #### 5 7021-8 ####[facility] LABCLIA [id number] [place] [address] [place] Basophils/100 WBC (Bld) 0.7 % Normal [facility] Comment on above: Order Comment: Speci men Type: BLOOD SPECIMENOrdering Facility: [facility] Address: [address] Performed By: #### 5 7021-8 ####[facility] LABCLIA [id number] [address] [place] Differential cell count method Nom (Bld) Auto Normal [facility] Comment on above: Order Comment: Speci men Type: BLOOD SPECIMENOrdering Facility: [facility] Address: [address] Performed By: #### 5 7021-8 ####[facility] LABCLIA [id number] [place] [address] [place] Eosinophils (Bld) [#/Vol] 0.21 10*3/uL Normal <0.46 [facility] Comment on above: Order Comment: Speci men Type: BLOOD SPECIMENOrdering Facility: [facility] Address: [address] [place], [place] [address] Performed By: #### 5 7021-8 ####[facility] LABCLIA [id number] [address] STATES [facility] Eosinophils/100 WBC (Bld) 4.7 % Normal [facility] Comment on above: Order Comment: Speci men Type: BLOOD SPECIMENOrdering Facility: [facility] Address: [address] [place] [address] Performed By: #### 5 7021-8 ####[facility] LABCLIA [id number] [address] [place] Erythrocyte distribution width (RBC) [Ratio] 15.0 % Normal 11.5-15.0 [facility] Comment on above: Order Comment: Speci men Type: BLOOD SPECIMENOrdering Facility: [facility] Address: [address] [place] [address] Performed By: #### 5 7021-8 ####[facility] LABIA [id number] [place] [address] [place] Hematocrit (Bld) [Volume fraction] 24.2 % Low 36.0-46.0 [facility] Comment on above: Order Comment: Speci men Type: BLOOD SPECIMENOrdering Facility: [facility] Address: [address] [place], [place] [address] Performed By: #### 5 7021-8 ####[facility] LABIA [id number] [place] [address] [place] Hemoglobin (Bld) [Mass/Vol] 7.7 g/dL Low 11.5-15.5 [facility] Comment on above: Order Comment: Speci men Type: BLOOD SPECIMENOrdering Facility: [facility] Address: [address] [place], [place] [address] Performed By: #### 5 7021-8 ####[facility] LABIA [id number] [place] [address] [place] Immature granulocytes (Bld) [#/Vol] 10*3/uL Normal <0.10 [facility] Comment on above: Order Comment: Speci men Type: BLOOD SPECIMENOrdering Facility: [facility] Address: [address] [place], [place] [address] Performed By: #### 5 7021-8 ####[facility] LABIA [id number] [place] [address] [place] Immature granulocytes/100 WBC (Bld) 0.2 % Normal [facility] Comment on above: Order Comment: Speci men Type: BLOOD SPECIMENOrdering Facility: [facility] Address: [address] [place], [place] [address] Performed By: #### 5 7021-8 ####[facility] LABIA [id number] [place] [address] [place] Lymphocytes (Bld) [#/Vol] 2.00 10*3/uL Normal 1.00-4.00 [facility] Comment on above: Order Comment: Speci men Type: BLOOD SPECIMENOrdering Facility: [facility] Address: [address] [place] [address] Performed By: #### 5 7021-8 ####[facility] LABCLIA [id number] [address] [place] Lymphocytes/100 WBC (Bld) 45.0 % Normal [facility] Comment on above: Order Comment: Speci men Type: BLOOD SPECIMENOrdering Facility: [facility] Address: [address] [place] [address] Performed By: #### 5 7021-8 ####[facility] LABCLIA [id number] [place] [address] [place] MCH (RBC) [Entitic mass] 27.0 pg Normal 26.0-34.0 [facility] Comment on above: Order Comment: Speci men Type: BLOOD SPECIMENOrdering Facility: [facility] Address: [address] [place], [place] [address] Performed By: #### 5 7021-8 ####[facility] LABIA [id number] [address] [place] MCHC (RBC) [Mass/Vol] 31.8 g/dL Normal 30.5-36.0 [facility] Comment on above: Order Comment: Speci men Type: BLOOD SPECIMENOrdering Facility: [facility] Address: [address] [place], [place] [address] Performed By: #### 5 7021-8 ####[facility] LABCLIA [id number] [address] [place] MCV (RBC) [Entitic vol] 84.9 fL Normal 80.0-100.0 [facility] Comment on above: Order Comment: Speci men Type: BLOOD SPECIMENOrdering Facility: [facility] Address: [address] Performed By: #### 5 7021-8 ####[facility] LABCLIA [id number] [place] [address] [place] Monocytes (Bld) [#/Vol] 0.50 10*3/uL Normal <0.87 [facility] Comment on above: Order Comment: Speci men Type: BLOOD SPECIMENOrdering Facility: [facility] Address: [address] Performed By: #### 5 7021-8 ####[facility] LABCLIA [id number] [place] [address] [place] Monocytes/100 WBC (Bld) 11.3 % Normal [facility] Comment on above: Order Comment: Speci men Type: BLOOD SPECIMENOrdering Facility: [facility] Address: [address] Performed By: #### 5 7021-8 ####[facility] LABCLIA [id number] [place] [address] [place] Neutrophils (Bld) [#/Vol] 1.69 10*3/uL Normal 1.45-7.50 [facility] Comment on above: Order Comment: Speci men Type: BLOOD SPECIMENOrdering Facility: [facility] Address: [address] Performed By: #### 5 7021-8 ####[facility] LABCLIA [id number] [place] [address] [place] Neutrophils/100 WBC (Bld) 38.1 % Normal [facility] Comment on above: Order Comment: Speci men Type: BLOOD SPECIMENOrdering Facility: [facility] Address: [address] [place], [place] [address] Performed By: #### 5 7021-8 ####[facility] LABCLIA [id number] [place] [address] [place] Nucleated RBC (Bld) [#/Vol] 10*3/uL Normal <0.01 [facility] Comment on above: Order Comment: Speci men Type: BLOOD SPECIMENOrdering Facility: [facility] Address: [address] [place] [address] Performed By: #### 5 7021-8 ####[facility] LABCLIA [id number] [place] [address] [place] Nucleated RBC/100 WBC (Bld) [Ratio] 0.0 /100 WBC Normal [facility] Comment on above: Order Comment: Speci men Type: BLOOD SPECIMENOrdering Facility: [facility] Address: [address] [place] [address] Performed By: #### 5 7021-8 ####[facility] LABIA [id number] [place] [address] [place] Platelet mean volume (Bld) [Entitic vol] 10.7 fL Normal 9.0-12.7 [facility] Comment on above: Order Comment: Speci men Type: BLOOD SPECIMENOrdering Facility: [facility] Address: [address] [place], [place] [address] Performed By: #### 5 7021-8 ####[facility] LABIA [id number] [place] [address] [place] Platelets (Bld) [#/Vol] 237 10*3/uL Normal 150-400 [facility] Comment on above: Order Comment: Speci men Type: BLOOD SPECIMENOrdering Facility: [facility] Address: [address] [place], [place] [address] Performed By: #### 5 7021-8 ####[facility] LABCLIA [id number] [place] [address] [place] RBC (Bld) [#/Vol] 2.85 10*6/uL Low 3.90-5.20 [facility] Comment on above: Order Comment: Speci men Type: BLOOD SPECIMENOrdering Facility: [facility] Address: [address] [place], [place] [address] Performed By: #### 5 7021-8 ####[facility] LABCLIA [id number] [place] [address] [place] WBC (Bld) [#/Vol] 4.44 10*3/uL Normal 3.70-11.00 [facility] Comment on above: Order Comment: Speci men Type: BLOOD SPECIMENOrdering Facility: [facility] Address: [address] [place], [place] [address] Performed By: #### 5 7021-8 ####[facility] LABCLIA [id number] [place] [address] [place] CONSULT PROGon 03-13-2023 CONSULT PROG Normal [facility] CONSULT PROG Normal [facility] CRP SerPl-mCncon 03-13-2023 CRP [Mass/Vol] 0.4 mg/dL Normal <0.9 [facility] Comment on above: Order Comment: Speci men Type: BLOOD SPECIMENOrdering Facility: [facility] Address: [address] [place] [address] Performed By: #### 2 4325-3, 277-1, , 1988-02 ####[facility] LABCLIA [id number] [place] [address] [place] Hepatic function 2000 panelo n 03-13-2023 Albumin [Mass/Vol] 3.2 g/dL Low 3.9-4.[address] [facility] Comment on above: Order Comment: Speci men Type: BLOOD SPECIMENOrdering Facility: [facility] Address: [address] [place], [place] [address] Performed By: #### 2 4325-3, 2777-1, , 1988-02 ####[facility] LABCLIA [id number] [place] [address] [place] ALP [Catalytic activity/Vol] 155 U/L High 34-123 [facility] Comment on above: Order Comment: Speci men Type: BLOOD SPECIMENOrdering Facility: [facility] Address: [address] [place] [address] Performed By: #### 2 4325-3, 277-, , 1988-02 ####[facility] LABCLIA [id number] [place] [address] [place] ALT [Catalytic activity/Vol] 17 U/L Normal 7-38 [facility] Comment on above: Order Comment: Speci men Type: BLOOD SPECIMENOrdering Facility: [facility] Address: [address] [place] [address] Performed By: #### 2 4325-3, 2776-10, , 1988-02 ####[facility] LABCLIA [id number] [place] [address] [place] AST [Catalytic activity/Vol] 27 U/L Normal 13-35 [facility] Comment on above: Order Comment: Speci men Type: BLOOD SPECIMENOrdering Facility: [facility] Address: [address] [place] [address] Performed By: #### 2 4325-3, 2776-10, , 1988-02 ####[facility] LABCLIA [id number] [place] [address] [place] Bilirubin [Mass/Vol] 0.5 mg/dL Normal 0.2-1.3 [facility] Comment on above: Order Comment: Speci men Type: BLOOD SPECIMENOrdering Facility: [facility] Address: [address] [place] [address] Performed By: #### 2 4325-3, 2776-1, , 1988-02 ####[facility] LABCLIA [id number] [place] [address] [place] Bilirubin.conjugated [Mass/Vol] 0.2 mg/dL High <0.2 [facility] Comment on above: Order Comment: Speci men Type: BLOOD SPECIMENOrdering Facility: [facility] Address: [address] [place] [address] Performed By: #### 2 4325-3, 27704-08, , 1988-02 ####[facility] LABIA [id number] [place] [address] [place] Protein [Mass/Vol] 6.5 g/dL Normal 6.3-8.[address] [facility] Comment on above: Order Comment: Speci men Type: BLOOD SPECIMENOrdering Facility: [facility] Address: [address] [place] [address] Performed By: #### 2 4325-3, 2776-10, , 1988-02 ####[facility] [id number] [place] [address] [place] Magnesium SerPl-mCncon 03-13 Magnesium [Mass/Vol] 2.1 mg/dL Normal 1.7-2.3 [facility] Comment on above: Order Comment: Speci men Type: BLOOD SPECIMENOrdering Facility: [facility] Address: [address] [place], [place] [address] Performed By: #### 2 4325-3, 27704-08, , 1988-02 ####[facility] [id number] [place] [id number] [place] PTT, ANTICOAGULANT THERAPYon 03-13-2023 aPTT Coag (PPP) [Time] 64.8 s High 23.0-32.4 [facility] Comment on above: Order Comment: Speci men Type: BLOOD SPECIMENOrdering Facility: [facility] Address: [address] [place], [place] [address] Performed By: #### P TTAC ####[facility] LABCLIA [id number] [place] [id number] [place] Phosphate SerPl-mCncon 03-13 Phosphate [Mass/Vol] 5.1 mg/dL High 2.7-4.8 [facility] Comment on above: Order Comment: Speci men Type: BLOOD SPECIMENOrdering Facility: [facility] Address: [address] [place], [place] [address] Performed By: #### 2 4325-3, 2777-1, 33927-0, 1987- ####[facility] LABIA [id number] [address] [place] Prealb SerPl-mCncon 03-13-20 Prealbumin [Mass/Vol] 25 mg/dL Normal 17-36 [facility] Comment on above: Order Comment: Speci men Type: BLOOD SPECIMENOrdering Facility: [facility] Address: [address] [place] [address] Performed By: #### 2 4321-2, 32193-1 ####[facility] LABIA [id number] [place] [address] [place] aPTT PPPon 03-13-2023 aPTT Coag (PPP) [Time] 64.5 s High 23.0-32.4 [facility] Comment on above: Order Comment: Speci men Type: BLOOD SPECIMENOrdering Facility: [facility] Address: [address] [place], [place] [address] Performed By: #### 1 4979-9 ####[facility] LABIA [id number] [place] [id number] [place] Basic metabolic 2000 panelon 03-12-2023 Anion gap [Moles/Vol] 13 mmol/L Normal 9-18 [facility] Comment on above: Order Comment: Speci men Type: BLOOD SPECIMENOrdering Facility: [facility] Address: [address] [place], [place] [address] Performed By: #### 1 9123-9, 2777, 81171-0 ####[facility] LABCLIA [id number] [place] [address] [place] Calcium [Mass/Vol] 9.8 mg/dL Normal 8.5-10.[address] [facility] Comment on above: Order Comment: Speci men Type: BLOOD SPECIMENOrdering Facility: [facility] Address: [address] Performed By: #### 1 9123-9, 2777, 34864-4 ####[facility] LABCLIA [id number] [place] [address] [place] Chloride [Moles/Vol] 99 mmol/L Normal 97-105 [facility] Comment on above: Order Comment: Speci men Type: BLOOD SPECIMENOrdering Facility: [facility] Address: [address] Performed By: #### 1 9123-9, 2777, 44591-7 ####[facility] LABCLIA [id number] [place] [address] [place] CO2 [Moles/Vol] 26 mmol/L Normal 22-30 [facility] Comment on above: Order Comment: Speci men Type: BLOOD SPECIMENOrdering Facility: [facility] Address: [address] Performed By: #### 1 9123-9, 2777, 33028-9 ####[facility] LABCLIA [id number] [place] [address] [place] Creatinine [Mass/Vol] 6.14 mg/dL High 0.58-0.96 [facility] Comment on above: Order Comment: Speci men Type: BLOOD SPECIMENOrdering Facility: [facility] Address: [address] Performed By: #### 1 9123-9, 2777-1, 08191-4 ####[facility] LABCLIA [id number] [place] [address] [place] ESTIMATED GLOMERULAR FILTRATION RATE 8 mL/min/1.73m??? Low >=60 [facility] Comment on above: Order Comment: Matti bernal Type: BLOOD SPECIMENOrdering Facility: [facility] Address: [address] [place] [address] Result Comment: Karen mated Glomerular Filtration Rate (eGFR) is calculated using the 2020 CKD-EPI creatinine equation. This equation utilizes serum creatinine, sex, and age as parameters. The creatinine assay has traceable calibration to isotope dilution-mass spectrometry. Refer to KDIGO guidelines for clinical interpretation. In patients with unstable renal function, e.g. those with acute kidney injury, the eGFR may not accurately reflect actual GFR. Performed By: #### 1 9123-9, 2777-, 73002-8 ####[facility] LABCLIA [id number] [place] [address] [place] Glucose [Mass/Vol] 118 mg/dL High 74-[address] [facility] Comment on above: Order Comment: Matti bernal Type: BLOOD SPECIMENOrdering Facility: [facility] Address: [address] [place] [address] Result Comment: The [place] [employer] (ADA) provides guidance for cutoff values for fasting glucose and random glucose. The ADA defines fasting as no caloric intake for at least 8 hours. Fasting plasma glucose results between 100 to 125 mg/dL indicate increased risk for diabetes (prediabetes).Fasting plasma glucose results greater than or equal to 126 mg/dL meet the criteria for diagnosis of diabetes. In the absence of unequivocal hyperglycemia, results should be confirmed by repeat testing. In a patient with classic symptoms of hyperglycemia or hyperglycemic crisis, random plasma glucose results greater than or equal to 200 mg/dL meet the criteria for diagnosis of diabetes.Reference: Standards of Medical Care in Diabetes 2016, [place] [employer]. Diabetes Care. 2016.39(Suppl 1). Performed By: #### 1 9123-9, 2777-1, 58930-0 ####[facility] LABCLIA [id number] [place] [address] [place] Potassium [Moles/Vol] 4.0 mmol/L Normal 3.7-5.1 [facility] Comment on above: Order Comment: Speci men Type: BLOOD SPECIMENOrdering Facility: [facility] Address: [address] [place] [address] Performed By: #### 1 9123-9, 2777-, 54547-9 ####[facility] LABCLIA [id number] [place] [address] [place] Sodium [Moles/Vol] 138 mmol/L Normal 136-[address] [facility] Comment on above: Order Comment: Speci men Type: BLOOD SPECIMENOrdering Facility: [facility] Address: [address] [place] [address] Performed By: #### 1 9123-9, 2777-, 09136-5 ####[facility] LABIA [id number] [place] [address] [place] Urea nitrogen [Mass/Vol] 84 mg/dL High 7-21 [facility] Comment on above: Order Comment: Speci men Type: BLOOD SPECIMENOrdering Facility: [facility] Address: [address] [place] [address] Performed By: #### 1 9123-9, 2777-1, 20941-4 ####[facility] LABIA [id number] [place] [address] [place] CBC panel Auto (Bld)on 03-12 Erythrocyte distribution width (RBC) [Ratio] 14.9 % Normal 11.5-15.0 [facility] Comment on above: Order Comment: Speci men Type: BLOOD SPECIMENOrdering Facility: [facility] Address: [address] [place] [address] Performed By: #### 5 8410-2 ####[facility] LABIA [id number] [address] [place] Hematocrit (Bld) [Volume fraction] 24.3 % Low 36.0-46.0 [facility] Comment on above: Order Comment: Speci men Type: BLOOD SPECIMENOrdering Facility: [facility] Address: [address] [place] [address] Performed By: #### 5 8410-2 ####[facility] LABIA [id number] [address] [place] Hemoglobin (Bld) [Mass/Vol] 7.7 g/dL Low 11.5-15.5 [facility] Comment on above: Order Comment: Speci men Type: BLOOD SPECIMENOrdering Facility: [facility] Address: [address] [place] [address] Performed By: #### 5 8410-2 ####[facility] LABCLIA [id number] [address] [place] [facility] MCH (RBC) [Entitic mass] 26.3 pg Normal 26.0-34.0 [facility] Comment on above: Order Comment: Speci men Type: BLOOD SPECIMENOrdering Facility: [facility] Address: [address] [place] [address] Performed By: #### 5 8410-2 ####[facility] LABIA [id number] [address] [place] MCHC (RBC) [Mass/Vol] 31.7 g/dL Normal 30.5-36.0 [facility] Comment on above: Order Comment: Speci men Type: BLOOD SPECIMENOrdering Facility: [facility] Address: [address] [place] [address] Performed By: #### 5 8410-2 ####[facility] LABCLIA [id number] [place] [address] [place] MCV (RBC) [Entitic vol] 82.9 fL Normal 80.0-100.0 [facility] Comment on above: Order Comment: Speci men Type: BLOOD SPECIMENOrdering Facility: [facility] Address: [address] Performed By: #### 5 8410-2 ####[facility] LABIA [id number] [place] [address] [place] Nucleated RBC (Bld) [#/Vol] 10*3/uL Normal <0.01 [facility] Comment on above: Order Comment: Speci men Type: BLOOD SPECIMENOrdering Facility: [facility] Address: [address] Performed By: #### 5 8410-2 ####[facility] LABIA [id number] [place] [address] [place] Platelet mean volume (Bld) [Entitic vol] 10.3 fL Normal 9.0-12.7 [facility] Comment on above: Order Comment: Speci men Type: BLOOD SPECIMENOrdering Facility: [facility] Address: [address] [place], [place] [address] Performed By: #### 5 8410-2 ####[facility] LABIA [id number] [place] [address] [place] Platelets (Bld) [#/Vol] 230 10*3/uL Normal 150-400 [facility] Comment on above: Order Comment: Speci men Type: BLOOD SPECIMENOrdering Facility: [facility] Address: [address] Performed By: #### 5 8410-2 ####[facility] LABIA [id number] [place] [address] [place] RBC (Bld) [#/Vol] 2.93 10*6/uL Low 3.90-5.20 [facility] Comment on above: Order Comment: Speci men Type: BLOOD SPECIMENOrdering Facility: [facility] Address: [address] [address] Performed By: #### 5 8410-2 ####[facility] LABIA [id number] [place] [address] [place] WBC (Bld) [#/Vol] 5.18 10*3/uL Normal 3.70-11.00 [facility] Comment on above: Order Comment: Speci men Type: BLOOD SPECIMENOrdering Facility: [facility] Address: [address] [address] Performed By: #### 5 8410-2 ####[facility] LABIA [id number] [place] [address] [place] CONSULT PROGon 03-12-2023 CONSULT PROG Normal [facility] CONSULT PROG Normal [facility] Magnesium SerPl-mCncon 03-12 Magnesium [Mass/Vol] 2.1 mg/dL Normal 1.7-2.3 [facility] Comment on above: Order Comment: Speci men Type: BLOOD SPECIMENOrdering Facility: [facility] Address: [address] [place] [address] Performed By: #### 1 9123-9, 2777-1, 04817-1 ####[facility] LABIA [id number] [place] [address] [place] NURSING PROGon 03-12-2023 NURSING PROG Normal [facility] PTT, ANTICOAGULANT THERAPYon 03-12-2023 aPTT Coag (PPP) [Time] 45.9 s High 23.0-32.4 [facility] Comment on above: Order Comment: Speci men Type: BLOOD SPECIMENOrdering Facility: [facility] Address: [address] [place] [address] Performed By: #### P TTAC ####[facility] LABIA [id number] [place] [address] [place] Phosphate SerPl-mCncon 03-12 Phosphate [Mass/Vol] 3.3 mg/dL Normal 2.7-4.8 [facility] Comment on above: Order Comment: Speci men Type: BLOOD SPECIMENOrdering Facility: [facility] Address: [address] [place] [address] Performed By: #### 1 9123-9, 2777-1, 22030-4 ####[facility] LABCLIA [id number] [place] [address] [place] Vancomycin Kelayres SerPl-mCncon 03-12-2023 Vancomycin random [Mass/Vol] 14.6 ug/mL Normal 10.0-20.0 [facility] Comment on above: Order Comment: Speci men Type: BLOOD SPECIMENOrdering Facility: [facility] Address: [address] [place] [address] Result Comment: Refe rence ranges and high/low indicator flags are provided as general guidelines only. The treating physician must determine appropriate target levels/dosing based on the specific clinical situation. Performed By: #### 4 091-5 ####[facility] LABCLIA [id number] [place] [address] [place] aPTT PPPon 03-12-2023 aPTT Coag (PPP) [Time] 46.7 s High 23.0-32.4 [facility] Comment on above: Order Comment: Speci men Type: BLOOD SPECIMENOrdering Facility: [facility] Address: [address] Performed By: #### 1 4979-9 ####[facility] LABCLIA [id number] [place] [id number] [place] Basic metabolic 2000 panelon 03-11-2023 Anion gap [Moles/Vol] 13 mmol/L Normal 9-18 [facility] Comment on above: Order Comment: Speci men Type: BLOOD SPECIMENOrdering Facility: [facility] Address: [address] [place] [address] Performed By: #### 1 9123-9, 2777, 77619-9 ####[facility] LABCLIA [id number] [place] [address] [place] Calcium [Mass/Vol] 9.8 mg/dL Normal 8.5-10.[address] [facility] Comment on above: Order Comment: Speci men Type: BLOOD SPECIMENOrdering Facility: [facility] Address: [address] [place] [address] Performed By: #### 1 9123-9, 2777, 29779-9 ####[facility] LABCLIA [id number] [place] [address] [place] Chloride [Moles/Vol] 97 mmol/L Normal 97-105 [facility] Comment on above: Order Comment: Speci men Type: BLOOD SPECIMENOrdering Facility: [facility] Address: [address] [place] [address] Performed By: #### 1 9123-9, 27704-08, ####[facility] LABCLIA [id number] [place] [address] [place] CO2 [Moles/Vol] 28 mmol/L Normal 22-30 [facility] Comment on above: Order Comment: Speci men Type: BLOOD SPECIMENOrdering Facility: [facility] Address: [address] [place] [address] Performed By: #### 1 9123-9, 27704-08, 54723-5 ####[facility] LABCLIA [id number] [place] [address] [place] Creatinine [Mass/Vol] 7.22 mg/dL High 0.58-0.96 [facility] Comment on above: Order Comment: Speci men Type: BLOOD SPECIMENOrdering Facility: [facility] Address: [address] [address] Performed By: #### 1 9123-9, 27704-08, 10814-6 ####[facility] LABCLIA [id number] [place] [address] [place] ESTIMATED GLOMERULAR FILTRATION RATE 6 mL/min/1.73m??? Low >=60 [facility] Comment on above: Order Comment: Matti bernal Type: BLOOD SPECIMENOrdering Facility: [facility] Address: [address] [place] [address] Result Comment: Karen mated Glomerular Filtration Rate (eGFR) is calculated using the 2020 CKD-EPI creatinine equation. This equation utilizes serum creatinine, sex, and age as parameters. The creatinine assay has traceable calibration to isotope dilution-mass spectrometry. Refer to KDIGO guidelines for clinical interpretation. In patients with unstable renal function, e.g. those with acute kidney injury, the eGFR may not accurately reflect actual GFR. Performed By: #### 1 9123-9, 2777-1, 53884-8 ####[facility] LABIA [id number] [place] [address] [place] Glucose [Mass/Vol] 106 mg/dL High 74-[address] [facility] Comment on above: Order Comment: Matti bernal Type: BLOOD SPECIMENOrdering Facility: [facility] Address: [address] [place] [address] Result Comment: The [place] Diabetes [employer] (ADA) provides guidance for cutoff values for fasting glucose and random glucose. The ADA defines fasting as no caloric intake for at least 8 hours. Fasting plasma glucose results between 100 to 125 mg/dL indicate increased risk for diabetes (prediabetes).Fasting plasma glucose results greater than or equal to 126 mg/dL meet the criteria for diagnosis of diabetes. In the absence of unequivocal hyperglycemia, results should be confirmed by repeat testing. In a patient with classic symptoms of hyperglycemia or hyperglycemic crisis, random plasma glucose results greater than or equal to 200 mg/dL meet the criteria for diagnosis of diabetes.Reference: Standards of Medical Care in Diabetes 2016, [place] [employer]. Diabetes Care. 2016.39(Suppl 1). Performed By: #### 1 9123-9, 2777-1, 93131-0 ####[facility] LABCLIA [id number] [place] [address] [place] Potassium [Moles/Vol] 3.8 mmol/L Normal 3.7-5.1 [facility] Comment on above: Order Comment: Speci men Type: BLOOD SPECIMENOrdering Facility: [facility] Address: [address] [place] [address] Performed By: #### 1 9123-9, 2777-1, 75792-8 ####[facility] LABCLIA [id number] [place] [address] [place] Sodium [Moles/Vol] 138 mmol/L Normal 136-[address] [facility] Comment on above: Order Comment: Speci men Type: BLOOD SPECIMENOrdering Facility: [facility] Address: [address] [place] [address] Performed By: #### 1 9123-9, 2777-1, 67939-7 ####[facility] LABCLIA [id number] [place] [address] [place] Urea nitrogen [Mass/Vol] 88 mg/dL High 7-21 [facility] Comment on above: Order Comment: Speci men Type: BLOOD SPECIMENOrdering Facility: [facility] Address: [address] [place] [address] Performed By: #### 1 9123-9, 2777-1, 19126-3 ####[facility] LABIA [id number] [place] [address] [place] CASE MANAGEMon 03-11-2023 CASE MANAGEM Normal [facility] CBC panel Auto (Bld)on 03-11 Erythrocyte distribution width (RBC) [Ratio] 14.7 % Normal 11.5-15.0 [facility] Comment on above: Order Comment: Speci men Type: BLOOD SPECIMENOrdering Facility: [facility] Address: [address] [place] [address] Performed By: #### 5 8410-2 ####[facility] LABCLIA [id number] [place] [address] [place] Hematocrit (Bld) [Volume fraction] 25.9 % Low 36.0-46.0 [facility] Comment on above: Order Comment: Speci men Type: BLOOD SPECIMENOrdering Facility: [facility] Address: [address] [place] [address] Performed By: #### 5 8410-2 ####[facility] LABIA [id number] [address] [place] Hemoglobin (Bld) [Mass/Vol] 8.2 g/dL Low 11.5-15.5 [facility] Comment on above: Order Comment: Speci men Type: BLOOD SPECIMENOrdering Facility: [facility] Address: [address] [place] [address] Performed By: #### 5 8410-2 ####[facility] LABIA [id number] [address] [place] [facility] MCH (RBC) [Entitic mass] 26.4 pg Normal 26.0-34.0 [facility] Comment on above: Order Comment: Speci men Type: BLOOD SPECIMENOrdering Facility: [facility] Address: [address] [place] [address] Performed By: #### 5 8410-2 ####[facility] LABIA [id number] [place] [address] [place] MCHC (RBC) [Mass/Vol] 31.7 g/dL Normal 30.5-36.0 [facility] Comment on above: Order Comment: Speci men Type: BLOOD SPECIMENOrdering Facility: [facility] Address: [address] [place] [address] Performed By: #### 5 8410-2 ####[facility] LABIA [id number] [address] [place] MCV (RBC) [Entitic vol] 83.3 fL Normal 80.0-100.0 [facility] Comment on above: Order Comment: Speci men Type: BLOOD SPECIMENOrdering Facility: [facility] Address: [address] [place], [place] [address] Performed By: #### 5 8410-2 ####[facility] LABCLIA [id number] [place] [address] [place] Nucleated RBC (Bld) [#/Vol] 10*3/uL Normal <0.01 [facility] Comment on above: Order Comment: Speci men Type: BLOOD SPECIMENOrdering Facility: [facility] Address: [address] [place], [place] [address] Performed By: #### 5 8410-2 ####[facility] LABIA [id number] [place] [address] [place] Platelet mean volume (Bld) [Entitic vol] 10.4 fL Normal 9.0-12.7 [facility] Comment on above: Order Comment: Speci men Type: BLOOD SPECIMENOrdering Facility: [facility] Address: [address] [place], [place] [address] Performed By: #### 5 8410-2 ####[facility] LABIA [id number] [place] [address] [place] Platelets (Bld) [#/Vol] 240 10*3/uL Normal 150-400 [facility] Comment on above: Order Comment: Speci men Type: BLOOD SPECIMENOrdering Facility: [facility] Address: [address] [place] [id number] Performed By: #### 5 8410-2 ####[facility] LABIA [id number] [place] [address] [place] RBC (Bld) [#/Vol] 3.11 10*6/uL Low 3.90-5.20 [facility] Comment on above: Order Comment: Speci men Type: BLOOD SPECIMENOrdering Facility: [facility] Address: [address] [address] Performed By: #### 5 8410-2 ####[facility] LABIA [id number] [place] [address] [place] WBC (Bld) [#/Vol] 5.54 10*3/uL Normal 3.70-11.00 [facility] Comment on above: Order Comment: Speci men Type: BLOOD SPECIMENOrdering Facility: [facility] Address: [address] [place] [address] Performed By: #### 5 8410-2 ####[facility] [id number] [place] [address] [place] CONSULT PROGon 03-11-2023 CONSULT PROG Normal [facility] Magnesium SerPl-mCncon 03-11 Magnesium [Mass/Vol] 2.1 mg/dL Normal 1.7-2.3 [facility] Comment on above: Order Comment: Speci men Type: BLOOD SPECIMENOrdering Facility: [facility] Address: [address] [place] [address] Performed By: #### 1 9123-9, 2777-1, 01172-0 ####[facility] LABIA [id number] [place] [address] [place] PTT, ANTICOAGULANT THERAPYon 03-11-2023 aPTT Coag (PPP) [Time] 56.9 s High 23.0-32.4 [facility] Comment on above: Order Comment: Speci men Type: BLOOD SPECIMENOrdering Facility: [facility] Address: [address] [place] [address] Performed By: #### P TTAC ####[facility] LABIA [id number] [place] [address] [place] aPTT Coag (PPP) [Time] 58.2 s High 23.0-32.4 [facility] Comment on above: Order Comment: Speci men Type: BLOOD SPECIMENOrdering Facility: [facility] Address: [address] [place], [place] [address] Performed By: #### P [facility] ####[facility] LABCLIA [id number] [place] [id number] [place] Phosphate SerPl-mCncon 03-11 Phosphate [Mass/Vol] 3.5 mg/dL Normal 2.7-4.8 [facility] Comment on above: Order Comment: Speci men Type: BLOOD SPECIMENOrdering Facility: [facility] Address: [address] [place] [address] Performed By: #### 1 9123-9, 2777-1, 14401-1 ####[facility] LABCLIA [id number] [place] [address] [place] Basic metabolic 2000 panelon 03-10-2023 Anion gap [Moles/Vol] 16 mmol/L Normal 9-18 [facility] Comment on above: Order Comment: Speci men Type: BLOOD SPECIMENOrdering Facility: [facility] Address: [address] [place], [place] [address] Performed By: #### 2 4321-2, 77753-1, 277- ####[facility] LABCLIA [id number] [place] [address] [place] Calcium [Mass/Vol] 9.5 mg/dL Normal 8.5-10.[address] [facility] Comment on above: Order Comment: Speci men Type: BLOOD SPECIMENOrdering Facility: [facility] Address: [address] Performed By: #### 2 4321-2, 54238-1, 277- ####[facility] LABCLIA [id number] [place] [address] [place] Chloride [Moles/Vol] 91 mmol/L Low 97-105 [facility] Comment on above: Order Comment: Speci men Type: BLOOD SPECIMENOrdering Facility: [facility] Address: [address] [place] [address] Performed By: #### 2 4321-2, , 2776-10 ####[facility] LABCLIA [id number] [place] [address] [place] CO2 [Moles/Vol] 32 mmol/L High 22-30 [facility] Comment on above: Order Comment: Speci men Type: BLOOD SPECIMENOrdering Facility: [facility] Address: [address] [place] [address] Performed By: #### 2 4321-2, , 2776-10 ####[facility] LABCLIA [id number] [place] [address] [place] Creatinine [Mass/Vol] 7.91 mg/dL High 0.58-0.96 [facility] Comment on above: Order Comment: Speci men Type: BLOOD SPECIMENOrdering Facility: [facility] Address: [address] [place] [address] Performed By: #### 2 4321-2, , 2776-10 ####[facility] LABIA [id number] [place] [address] [place] ESTIMATED GLOMERULAR FILTRATION RATE 6 mL/min/1.73m??? Low >=60 [facility] Comment on above: Order Comment: Speci men Type: BLOOD SPECIMENOrdering Facility: [facility] Address: [address] [place] [address] Result Comment: Karen mated Glomerular Filtration Rate (eGFR) is calculated using the 2020 CKD-EPI creatinine equation. This equation utilizes serum creatinine, sex, and age as parameters. The creatinine assay has traceable calibration to isotope dilution-mass spectrometry. Refer to KDIGO guidelines for clinical interpretation. In patients with unstable renal function, e.g. those with acute kidney injury, the eGFR may not accurately reflect actual GFR. Performed By: #### 2 4321-2, , 2776-10 ####[facility] LABIA [id number] [place] [address] [place] Glucose [Mass/Vol] 126 mg/dL High 74-[address] [facility] Comment on above: Order Comment: Speci men Type: BLOOD SPECIMENOrdering Facility: [facility] Address: [address] [place] [address] Result Comment: The [place] Diabetes Association (ADA) provides guidance for cutoff values for fasting glucose and random glucose. The ADA defines fasting as no caloric intake for at least 8 hours. Fasting plasma glucose results between 100 to 125 mg/dL indicate increased risk for diabetes (prediabetes).Fasting plasma glucose results greater than or equal to 126 mg/dL meet the criteria for diagnosis of diabetes. In the absence of unequivocal hyperglycemia, results should be confirmed by repeat testing. In a patient with classic symptoms of hyperglycemia or hyperglycemic crisis, random plasma glucose results greater than or equal to 200 mg/dL meet the criteria for diagnosis of diabetes.Reference: Standards of Medical Care in Diabetes 2016, [place] [employer]. Diabetes Care. 2016.39(Suppl 1). Performed By: #### 2 4321-2, , 2776-10 ####[facility] LABIA [id number] [place] [address] [place] Potassium [Moles/Vol] 3.5 mmol/L Low 3.7-5.1 [facility] Comment on above: Order Comment: Speci men Type: BLOOD SPECIMENOrdering Facility: [facility] Address: [address] Performed By: #### 2 4321-2, , 2776-10 ####[facility] LABIA [id number] [place] [address] [place] Sodium [Moles/Vol] 139 mmol/L Normal 136-[address] [facility] Comment on above: Order Comment: Speci men Type: BLOOD SPECIMENOrdering Facility: [facility] Address: [address] [place], [place] [address] Performed By: #### 2 4321-2, 89492-4, 2777-1 ####[facility] LABCLIA [id number] [place] [address] [place] Urea nitrogen [Mass/Vol] 89 mg/dL High 7-21 [facility] Comment on above: Order Comment: Speci men Type: BLOOD SPECIMENOrdering Facility: [facility] Address: [address] [place], [place] [address] Performed By: #### 2 4321-2, 97077-6, 2777 ####[facility] LABIA [id number] [place] CASE MANAGEMon 03-10-2023 CASE MANAGEM Normal [facility] CBC panel Auto (Bld)on 03-10 Erythrocyte distribution width (RBC) [Ratio] 14.7 % Normal 11.5-15.0 [facility] Comment on above: Order Comment: Speci men Type: BLOOD SPECIMENOrdering Facility: [facility] Address: [address] [place] [phone] Performed By: #### 5 8410-2 ####[facility] LABIA [id number] [address] [place] Hematocrit (Bld) [Volume fraction] 26.0 % Low 36.0-46.0 [facility] Comment on above: Order Comment: Speci men Type: BLOOD SPECIMENOrdering Facility: [facility] Address: [address] [place] [phone] Performed By: #### 5 8410-2 ####[facility]IA [id number] [place] [address] [place] Hemoglobin (Bld) [Mass/Vol] 8.5 g/dL Low 11.5-15.5 [facility] Comment on above: Order Comment: Speci men Type: BLOOD SPECIMENOrdering Facility: [facility] Address: [address] [place] [address] Performed By: #### 5 8410-2 ####[facility] LABIA [id number] [address] STATES [facility] MCH (RBC) [Entitic mass] 26.7 pg Normal 26.0-34.0 [facility] Comment on above: Order Comment: Speci men Type: BLOOD SPECIMENOrdering Facility: [facility] Address: [address] Performed By: #### 5 8410-2 ####[facility]IA [id number] [address] [place] MCHC (RBC) [Mass/Vol] 32.7 g/dL Normal 30.5-36.0 [facility] Comment on above: Order Comment: Speci men Type: BLOOD SPECIMENOrdering Facility: [facility] Address: [address] [place], [place] [address] Performed By: #### 5 8410-2 ####[facility] LABIA [id number] [place] [address] [place] MCV (RBC) [Entitic vol] 81.8 fL Normal 80.0-100.0 [facility] Comment on above: Order Comment: Speci men Type: BLOOD SPECIMENOrdering Facility: [facility] Address: [address] [place] [address] Performed By: #### 5 8410-2 ####[facility] LABIA [id number] [address] [place] Nucleated RBC (Bld) [#/Vol] 0.02 10*3/uL High <0.01 [facility] Comment on above: Order Comment: Speci men Type: BLOOD SPECIMENOrdering Facility: [facility] Address: [address] [place], [place] [address] Performed By: #### 5 8410-2 ####[facility] LABIA [id number] [place] [address] [place] Platelet mean volume (Bld) [Entitic vol] 10.7 fL Normal 9.0-12.7 [facility] Comment on above: Order Comment: Speci men Type: BLOOD SPECIMENOrdering Facility: [facility] Address: [address] [place] [address] Performed By: #### 5 8410-2 ####[facility] LABCLIA [id number] [place] [address] [place] Platelets (Bld) [#/Vol] 236 10*3/uL Normal 150-400 [facility] Comment on above: Order Comment: Speci men Type: BLOOD SPECIMENOrdering Facility: [facility] Address: [address] [place], [place] [address] Performed By: #### 5 8410-2 ####[facility] LABCLIA [id number] [place] [address] [place] RBC (Bld) [#/Vol] 3.18 10*6/uL Low 3.90-5.20 [facility] Comment on above: Order Comment: Speci men Type: BLOOD SPECIMENOrdering Facility: [facility] Address: [address] [place], [place] [address] Performed By: #### 5 8410-2 ####[facility] LABCLIA [id number] [place] [address] [place] WBC (Bld) [#/Vol] 5.16 10*3/uL Normal 3.70-11.00 [facility] Comment on above: Order Comment: Speci men Type: BLOOD SPECIMENOrdering Facility: [facility] Address: [address] [place], [place] [address] Performed By: #### 5 8410-2 ####[facility] LABCLIA [id number] [place] [address] [place] CONSULT PROGon 03-10-2023 CONSULT PROG Normal [facility] CONSULT PROG Normal [facility] CONSULT PROG Normal [facility] CONSULT PROG Normal [facility] Magnesium SerPl-mCncon 03-10 Magnesium [Mass/Vol] 1.8 mg/dL Normal 1.7-2.3 [facility] Comment on above: Order Comment: Speci men Type: BLOOD SPECIMENOrdering Facility: [facility] Address: [address] [place] [address] Performed By: #### 2 4321-2, 99579-9, 2777-1 ####[facility] [id number] [place] [address] [place] NUTRITIONon 03-10-2023 NUTRITION Normal [facility] Osmolality SerPlon Osmolality [Osmolality] 317 mosm/kg High 275-300 [facility] Comment on above: Order Comment: Speci men Type: BLOOD SPECIMENOrdering Facility: [facility] Address: [address] [place] [address] Performed By: #### 2 692-2 ####[facility] [id number] [place] [address] [place] Osmolality Uron 03-10-2023 Osmolality (U) [Osmolality] 239 mosm/kg Normal 50-1200 [facility] Comment on above: Order Comment: Speci men Type: URINE SPECIMENOrdering Facility: [facility] Address: [address] [place] [address] Performed By: #### 2 695-5 ####[facility] [id number] [place] [id number] [place] PT EDon 03-10-2023 PT ED Normal [facility] PTT, ANTICOAGULANT THERAPYon 03-10-2023 aPTT Coag (PPP) [Time] 69.2 s High 23.0-32.4 [facility] Comment on above: Order Comment: Speci men Type: BLOOD SPECIMENOrdering Facility: [facility] Address: [address] [place] [address] Performed By: #### P TTAC ####[facility]IA [id number] [place] [address] [place] aPTT Coag (PPP) [Time] 46.7 s High 23.0-32.4 [facility] Comment on above: Order Comment: Speci men Type: BLOOD SPECIMENOrdering Facility: [facility] Address: [address] [place] [address] Performed By: #### P TTAC ####[facility] [id number] [address] aPTT Coag (PPP) [Time] 101.2 s High 23.0-32.4 [facility] Comment on above: Order Comment: Speci men Type: BLOOD SPECIMENOrdering Facility: [facility] Address: [address] [place] [address] Result Comment: Samp le checked for clot.Result rechecked. Performed By: #### P TTAC ####[facility]IA [id number] [place] [address] [place] Phosphate SerPl-mCncon 03-10 Phosphate [Mass/Vol] 4.7 mg/dL Normal 2.7-4.8 [facility] Comment on above: Order Comment: Speci men Type: BLOOD SPECIMENOrdering Facility: [facility] Address: [address] [place] [address] Performed By: #### 2 4321-2, 83483-1, 2777-1 ####[facility] [id number] [place] [address] [place] XR ABDOMEN 1V SUPINEon 03-10 XR ABDOMEN 1V SUPINE Normal [facility] ALLIED HEALTHon 03-09-2023 ALLIED HEALTH Normal [facility] Basic metabolic 2000 panelon 03-09-2023 Anion gap [Moles/Vol] 16 mmol/L Normal 9-18 [facility] Comment on above: Order Comment: Speci men Type: BLOOD SPECIMENOrdering Facility: [facility] Address: [address] [place] [address] Performed By: #### 1 9123-9, 27704-08, 13072-1 ####[facility] LABCLIA [id number] [facility] [place] [address] [place] Calcium [Mass/Vol] 9.2 mg/dL Normal 8.5-10.[address] [facility] Comment on above: Order Comment: Speci men Type: BLOOD SPECIMENOrdering Facility: [facility] Address: [address] [place] [address] Performed By: #### 1 9123-9, 27704-08, ####[facility] LABCLIA [id number] [facility] [address] [place] Chloride [Moles/Vol] 90 mmol/L Low 97-105 [facility] Comment on above: Order Comment: Speci men Type: BLOOD SPECIMENOrdering Facility: [facility] Address: [address] [place], [place] [address] Performed By: #### 1 9123-9, 2776-10, ####[facility] LABCLIA [id number] [facility] [place] [address] [place] CO2 [Moles/Vol] 34 mmol/L High 22-30 [facility] Comment on above: Order Comment: Speci men Type: BLOOD SPECIMENOrdering Facility: [facility] Address: [address] Performed By: #### 1 9123-9, 2776-10, ####[facility] LABCLIA [id number] [facility] [address] [place] Creatinine [Mass/Vol] 8.36 mg/dL High 0.58-0.96 [facility] Comment on above: Order Comment: Speci men Type: BLOOD SPECIMENOrdering Facility: [facility] Address: [address] [phone] Performed By: #### 1 9123-9, 2777-1, 47985-6 ####[facility] LABCLIA [id number] [place] [id number] [place] ESTIMATED GLOMERULAR FILTRATION RATE 5 mL/min/1.73m??? Low >=60 [facility] Comment on above: Order Comment: Matti bernal Type: BLOOD SPECIMENOrdering Facility: [facility] Address: [address] [phone] Result Comment: Karen mated Glomerular Filtration Rate (eGFR) is calculated using the 2020 CKD-EPI creatinine equation. This equation utilizes serum creatinine, sex, and age as parameters. The creatinine assay has traceable calibration to isotope dilution-mass spectrometry. Refer to KDIGO guidelines for clinical interpretation. In patients with unstable renal function, e.g. those with acute kidney injury, the eGFR may not accurately reflect actual GFR. Performed By: #### 1 9123-9, 2777-1, 41849-5 ####[facility] LABCLIA [id number] [place] [id number] [place] Glucose [Mass/Vol] 122 mg/dL High 74-[address] [facility] Comment on above: Order Comment: Matti bernal Type: BLOOD SPECIMENOrdering Facility: [facility] Address: [address] [place] [phone] Result Comment: The [place] Diabetes Association (ADA) provides guidance for cutoff values for fasting glucose and random glucose. The ADA defines fasting as no caloric intake for at least 8 hours. Fasting plasma glucose results between 100 to 125 mg/dL indicate increased risk for diabetes (prediabetes).Fasting plasma glucose results greater than or equal to 126 mg/dL meet the criteria for diagnosis of diabetes. In the absence of unequivocal hyperglycemia, results should be confirmed by repeat testing. In a patient with classic symptoms of hyperglycemia or hyperglycemic crisis, random plasma glucose results greater than or equal to 200 mg/dL meet the criteria for diagnosis of diabetes.Reference: Standards of Medical Care in Diabetes 2016, [place] [employer]. Diabetes Care. 2016.39(Suppl 1). Performed By: #### 1 9123-9, 2777-1, 35687-5 ####[facility] LABCLIA [id number] [place] [address] [place] Potassium [Moles/Vol] 3.4 mmol/L Low 3.7-5.1 [facility] Comment on above: Order Comment: Matti bernal Type: BLOOD SPECIMENOrdering Facility: [facility] Address: [address] [place] [address] Performed By: #### 1 9123-9, 2777-1, 34248-7 ####[facility]IA [id number] [place] [address] [place] Sodium [Moles/Vol] 140 mmol/L Normal 136-[address] [facility] Comment on above: Order Comment: Matti bernal Type: BLOOD SPECIMENOrdering Facility: [facility] Address: [address] [place] [address] Performed By: #### 1 9123-9, 2777-1, 15103-4 ####[facility] LABIA [id number] [place] [address] [place] Urea nitrogen [Mass/Vol] 75 mg/dL High 7-21 [facility] Comment on above: Order Comment: Matti bernal Type: BLOOD SPECIMENOrdering Facility: [facility] Address: [address] Performed By: #### 1 9123-9, 2777-1, 63888-3 ####[facility]IA [id number] [address] [address] [place] CASE MANAGEMon 03-09-2023 CASE MANAGEM Normal [facility] CBC panel Auto (Bld)on 03-09 Erythrocyte distribution width (RBC) [Ratio] 14.6 % Normal 11.5-15.0 [facility] Comment on above: Order Comment: Speci men Type: BLOOD SPECIMENOrdering Facility: [facility] Address: [address] [address] Performed By: #### 5 8410-2 ####[facility] LABCLIA [id number] [place] [address] [place] Hematocrit (Bld) [Volume fraction] 26.6 % Low 36.0-46.0 [facility] Comment on above: Order Comment: Speci men Type: BLOOD SPECIMENOrdering Facility: [facility] Address: [address] [place] [address] Performed By: #### 5 8410-2 ####[facility]IA [id number] [address] [place] Hemoglobin (Bld) [Mass/Vol] 8.6 g/dL Low 11.5-15.5 [facility] Comment on above: Order Comment: Speci men Type: BLOOD SPECIMENOrdering Facility: [facility] Address: [address] [address] Performed By: #### 5 8410-2 ####[facility]IA [id number] [address] [place] MCH (RBC) [Entitic mass] 26.3 pg Normal 26.0-34.0 [facility] Comment on above: Order Comment: Speci men Type: BLOOD SPECIMENOrdering Facility: [facility] Address: [address] Performed By: #### 5 8410-2 ####[facility] LABCLIA [id number] [place] [address] [place] MCHC (RBC) [Mass/Vol] 32.3 g/dL Normal 30.5-36.0 [facility] Comment on above: Order Comment: Speci men Type: BLOOD SPECIMENOrdering Facility: [facility] Address: [address] Performed By: #### 5 8410-2 ####[facility]IA [id number] [place] [address] [place] MCV (RBC) [Entitic vol] 81.3 fL Normal 80.0-100.0 [facility] Comment on above: Order Comment: Speci men Type: BLOOD SPECIMENOrdering Facility: [facility] Address: [address] [place] [address] Performed By: #### 5 8410-2 ####[facility]IA [id number] [place] [address] [place] Nucleated RBC (Bld) [#/Vol] 10*3/uL Normal <0.01 [facility] Comment on above: Order Comment: Speci men Type: BLOOD SPECIMENOrdering Facility: [facility] Address: [address] [place] [phone] Performed By: #### 5 8410-2 ####[facility]IA [id number] [place] [address] [place] Platelet mean volume (Bld) [Entitic vol] 10.5 fL Normal 9.0-12.7 [facility] Comment on above: Order Comment: Speci men Type: BLOOD SPECIMENOrdering Facility: [facility] Address: [address] [place] [address] Performed By: #### 5 8410-2 ####[facility] LABIA [id number] [place] [address] [place] Platelets (Bld) [#/Vol] 239 10*3/uL Normal 150-400 [facility] Comment on above: Order Comment: Speci men Type: BLOOD SPECIMENOrdering Facility: [facility] Address: [address] [place] [phone] Performed By: #### 5 8410-2 ####[facility]IA [id number] [place] [address] [place] RBC (Bld) [#/Vol] 3.27 10*6/uL Low 3.90-5.20 [facility] Comment on above: Order Comment: Speci men Type: BLOOD SPECIMENOrdering Facility: [facility] Address: [address] [place] [address] Performed By: #### 5 8410-2 ####[facility]IA [id number] [place] [address] [place] WBC (Bld) [#/Vol] 5.91 10*3/uL Normal 3.70-11.00 [facility] Comment on above: Order Comment: Speci men Type: BLOOD SPECIMENOrdering Facility: [facility] Address: [address] [place] [address] Performed By: #### 5 8410-2 ####[facility] [id number] [place] [address] [place] CONSULT PROGon 03-09-2023 CONSULT PROG Normal [facility] CONSULT PROG Normal [facility] CONSULT PROG Normal [facility] CONSULT PROG Normal [facility] Magnesium SerPl-mCncon 03-09 Magnesium [Mass/Vol] 1.5 mg/dL Low 1.7-2.3 [facility] Comment on above: Order Comment: Speci men Type: BLOOD SPECIMENOrdering Facility: [facility] Address: [address] [place] [address] Performed By: #### 1 9123-9, 2777-1, 22742-8 ####[facility] [id number] [place] [address] [place] PT panel Coag (PPP)on 2022 INR Coag (PPP) [Relative time] 1.1 {INR} Normal 0.9-1.3 [facility] Comment on above: Order Comment: Speci men Type: BLOOD SPECIMENOrdering Facility: [facility] Address: [address] [place] [address] [place] [address] Result Comment: Sandra min K Antagonist (VKA) Therapeutic Range: INR 2 to 3 (Target INR of 2.5)Note: For patients treated with VKA drugs, such as warfarin, the [place] [employer] 2012 Guideline recommends a therapeutic INR range of 2 to 3 (target INR of 2.5). This recommendation includes high-risk patients with antiphospholipid syndrome with previous arterial or venous thromboembolism, current-generation mechanical or bioprosthetic aortic heart valve replacement.Note: Patients with mechanical aortic valve replacement and additional risk factors for thromboembolic events (atrial fibrillation, previous thromboembolism, LV dysfunction, hypercoagulable conditions) or an older generation mechanical AVR (i.e., ball in-Cage) or any mechanical MVR should have a INR therapeutic range of 2.5 to 3.5 (target INR of 3).Linda DELVALLE, et al. Chest 2012, 141:7S-47SDaniel RA, et al. [facility] 2017, 70: 252-289 Performed By: #### 3 4528-0, PTTAC, 09159-1 ####[facility] LABCLIA [id number] [place] [address] [place] PT Coag (PPP) [Time] 10.9 s Normal 9.7-13.0 [facility] Comment on above: Order Comment: Speci men Type: BLOOD SPECIMENOrdering Facility: [facility] Address: [address] Performed By: #### 3 4528-0, PTTAC, 96013-3 ####[facility] LABCLIA [id number] [place] [address] [place] PTT, ANTICOAGULANT THERAPYon 03-09-2023 aPTT Coag (PPP) [Time] 43.6 s High 23.0-32.4 [facility] Comment on above: Order Comment: Speci men Type: BLOOD SPECIMENOrdering Facility: [facility] Address: [address] [place] [phone] Performed By: #### P TTAC ####[facility] LABCLIA [id number] [place] [address] [place] aPTT Coag (PPP) [Time] 80.0 s High 23.0-32.4 [facility] Comment on above: Order Comment: Speci men Type: BLOOD SPECIMENOrdering Facility: [facility] Address: [address] [place] [address] Performed By: #### 3 4528-0, PTTAC, 86217-2 ####[facility] [id number] [place] [address] [place] aPTT Coag (PPP) [Time] 72.6 s High 23.0-32.4 [facility] Comment on above: Order Comment: Speci men Type: BLOOD SPECIMENOrdering Facility: [facility] Address: [address] [place] [address] Performed By: #### P TTAC ####[facility] [id number] [place] [address] [place] Phosphate SerPl-mCncon 03-09 Phosphate [Mass/Vol] 5.7 mg/dL High 2.7-4.8 [facility] Comment on above: Order Comment: Speci men Type: BLOOD SPECIMENOrdering Facility: [facility] Address: [address] [place] [address] Result Comment: Resu lt rechecked. Performed By: #### 1 9123-9, 2777-1, 83968-2 ####[facility] [id number] [place] [address] [place] Vancomycin Kelayres SerPl-mCncon 03-09-2023 Vancomycin random [Mass/Vol] 22.5 ug/mL High 10.0-20.0 [facility] Comment on above: Order Comment: Speci men Type: BLOOD SPECIMENOrdering Facility: [facility] Address: [address] [place] [address] Result Comment: Refe rence ranges and high/low indicator flags are provided as general guidelines only. The treating physician must determine appropriate target levels/dosing based on the specific clinical situation. Performed By: #### 4 091-5 ####[facility] LABCLIA [id number] [place] [address] [place] Basic metabolic 2000 panelon 03-08-2023 Anion gap [Moles/Vol] 18 mmol/L Normal 9-18 [facility] Comment on above: Order Comment: Speci men Type: BLOOD SPECIMENOrdering Facility: [facility] Address: [address] [place] [address] Performed By: #### 2 4321-2, 2776-10, ####[facility] [id number] [place] [address] [place] Calcium [Mass/Vol] 8.8 mg/dL Normal 8.5-10.[address] [facility] Comment on above: Order Comment: Speci men Type: BLOOD SPECIMENOrdering Facility: [facility] Address: [address] [place] [address] Performed By: #### 2 4321-2, 2776-10, ####[facility] [id number] [place] [address] [place] Chloride [Moles/Vol] 91 mmol/L Low 97-105 [facility] Comment on above: Order Comment: Speci men Type: BLOOD SPECIMENOrdering Facility: [facility] Address: [address] [place] [phone] Performed By: #### 2 4321-2, 2776-10, ####[facility]IA [id number] [place] [id number] [place] CO2 [Moles/Vol] 30 mmol/L Normal 22-30 [facility] Comment on above: Order Comment: Speci men Type: BLOOD SPECIMENOrdering Facility: [facility] Address: [address] [phone] Performed By: #### 2 4321-2, 2777-, ####[facility] [id number] [address] [place] Creatinine [Mass/Vol] 8.50 mg/dL High 0.58-0.96 [facility] Comment on above: Order Comment: Speci men Type: BLOOD SPECIMENOrdering Facility: [facility] Address: [address] [address] Performed By: #### 2 4321-2, 2777-, ####[facility] [id number] [address] STATES OF [facility] ESTIMATED GLOMERULAR FILTRATION RATE 5 mL/min/1.73m??? Low >=60 [facility] Comment on above: Order Comment: Matti bernal Type: BLOOD SPECIMENOrdering Facility: [facility] Address: [address] [address] Result Comment: Karen mated Glomerular Filtration Rate (eGFR) is calculated using the 2020 CKD-EPI creatinine equation. This equation utilizes serum creatinine, sex, and age as parameters. The creatinine assay has traceable calibration to isotope dilution-mass spectrometry. Refer to KDIGO guidelines for clinical interpretation. In patients with unstable renal function, e.g. those with acute kidney injury, the eGFR may not accurately reflect actual GFR. Performed By: #### 2 4321-2, 2777, ####[facility]IA [id number] [place] [address] [place] Glucose [Mass/Vol] 90 mg/dL Normal 74-[address] [facility] Comment on above: Order Comment: Speci men Type: BLOOD SPECIMENOrdering Facility: [facility] Address: [address] Result Comment: The [place] Diabetes [employer] (ADA) provides guidance for cutoff values for fasting glucose and random glucose. The ADA defines fasting as no caloric intake for at least 8 hours. Fasting plasma glucose results between 100 to 125 mg/dL indicate increased risk for diabetes (prediabetes).Fasting plasma glucose results greater than or equal to 126 mg/dL meet the criteria for diagnosis of diabetes. In the absence of unequivocal hyperglycemia, results should be confirmed by repeat testing. In a patient with classic symptoms of hyperglycemia or hyperglycemic crisis, random plasma glucose results greater than or equal to 200 mg/dL meet the criteria for diagnosis of diabetes.Reference: Standards of Medical Care in Diabetes 2016, [place] [employer]. Diabetes Care. 2016.39(Suppl 1). Performed By: #### 2 4321-2, 2776-10, ####[facility] [id number] [place] [address] [place] Potassium [Moles/Vol] 3.5 mmol/L Low 3.7-5.1 [facility] Comment on above: Order Comment: Speci men Type: BLOOD SPECIMENOrdering Facility: [facility] Address: [address] [place] [address] Performed By: #### 2 432-2, 2776-10, ####[facility] [id number] [place] [address] [place] Sodium [Moles/Vol] 139 mmol/L Normal 136-[address] [facility] Comment on above: Order Comment: Speci men Type: BLOOD SPECIMENOrdering Facility: [facility] Address: [address] [place], [place] [address] Performed By: #### 2 432-2, 2776-10, ####[facility] [id number] [place] [address] [place] Urea nitrogen [Mass/Vol] 50 mg/dL High 7-21 [facility] Comment on above: Order Comment: Speci men Type: BLOOD SPECIMENOrdering Facility: [facility] Address: [address] [place], [place] [address] Performed By: #### 2 432-2, 2776-10, ####[facility] [id number] [place] [address] [place] CBC panel Auto (Bld)on 03-08 Erythrocyte distribution width (RBC) [Ratio] 14.6 % Normal 11.5-15.0 [facility] Comment on above: Order Comment: Speci men Type: BLOOD SPECIMENOrdering Facility: [facility] Address: [address] [place] [address] Performed By: #### 5 8410-2 ####[facility] [id number] [place] [address] [place] Hematocrit (Bld) [Volume fraction] 28.6 % Low 36.0-46.0 [facility] Comment on above: Order Comment: Speci men Type: BLOOD SPECIMENOrdering Facility: [facility] Address: [address] [place] [address] Performed By: #### 5 8410-2 ####[facility] [id number] [address] [place] Hemoglobin (Bld) [Mass/Vol] 9.6 g/dL Low 11.5-15.5 [facility] Comment on above: Order Comment: Speci men Type: BLOOD SPECIMENOrdering Facility: [facility] Address: [address] [place] [address] Performed By: #### 5 8410-2 ####[facility] [id number] [place] [address] [place] MCH (RBC) [Entitic mass] 26.8 pg Normal 26.0-34.0 [facility] Comment on above: Order Comment: Speci men Type: BLOOD SPECIMENOrdering Facility: [facility] Address: [address] [place] [address] Performed By: #### 5 8410-2 ####[facility] [id number] [place] MCHC (RBC) [Mass/Vol] 33.6 g/dL Normal 30.5-36.0 [facility] Comment on above: Order Comment: Speci men Type: BLOOD SPECIMENOrdering Facility: [facility] Address: [address] [place] [address] Performed By: #### 5 8410-2 ####[facility] [id number] [place] [address] [place] MCV (RBC) [Entitic vol] 79.9 fL Low 80.0-100.0 [facility] Comment on above: Order Comment: Speci men Type: BLOOD SPECIMENOrdering Facility: [facility] Address: [address] [place], [place] [address] Performed By: #### 5 8410-2 ####[facility] [id number] [address] [place] Nucleated RBC (Bld) [#/Vol] 10*3/uL Normal <0.01 [facility] Comment on above: Order Comment: Speci men Type: BLOOD SPECIMENOrdering Facility: [facility] Address: [address] [place], [place] [address] Performed By: #### 5 8410-2 ####[facility] [id number] [place] [address] [place] Platelet mean volume (Bld) [Entitic vol] 10.3 fL Normal 9.0-12.7 [facility] Comment on above: Order Comment: Speci men Type: BLOOD SPECIMENOrdering Facility: [facility] Address: [address] [place], [place] [address] Performed By: #### 5 8410-2 ####[facility] LABCLIA [id number] [place] [address] [place] Platelets (Bld) [#/Vol] 266 10*3/uL Normal 150-400 [facility] Comment on above: Order Comment: Speci men Type: BLOOD SPECIMENOrdering Facility: [facility] Address: [address] Performed By: #### 5 8410-2 ####[facility] LABCLIA [id number] [place] [address] [place] RBC (Bld) [#/Vol] 3.58 10*6/uL Low 3.90-5.20 [facility] Comment on above: Order Comment: Speci men Type: BLOOD SPECIMENOrdering Facility: [facility] Address: [address] Performed By: #### 5 8410-2 ####[facility]CLIA [id number] [place] [address] [place] WBC (Bld) [#/Vol] 7.61 10*3/uL Normal 3.70-11.00 [facility] Comment on above: Order Comment: Speci men Type: BLOOD SPECIMENOrdering Facility: [facility] Address: [address] [place], [place] [address] Performed By: #### 5 8410-2 ####[facility]CLIA [id number] [address] [place] CONSULT PROGon 03-08-2023 CONSULT PROG Normal [facility] CONSULT PROG Normal [facility] CONSULT PROG Normal [facility] CONSULT PROG Normal [facility] Magnesium SerPl-mCncon 03-08 Magnesium [Mass/Vol] 1.9 mg/dL Normal 1.7-2.3 [facility] Comment on above: Order Comment: Speci men Type: BLOOD SPECIMENOrdering Facility: [facility] Address: [address] [place], [place] [address] Performed By: #### 2 4321-2, 2777-1, 81801-1 ####[facility]CLIA [id number] [place] [address] [place] Phosphate SerPl-mCncon 03-08 Phosphate [Mass/Vol] 7.8 mg/dL High 2.7-4.8 [facility] Comment on above: Order Comment: Speci men Type: BLOOD SPECIMENOrdering Facility: [facility] Address: [address] [place] [address] Performed By: #### 2 4321-2, 2777-1, 03837-9 ####[facility] LABCLIA [id number] [place] [address] [place] US ARM VEIN DVT UNL VAS LABo n 03-08-2023 US ARM VEIN DVT UNL VAS LAB Normal [facility] BRIEF OP NOTon 03-07-2023 BRIEF OP NOT Normal [facility] Bacteria Bld Culton 03-07-20 Bacteria identified Cx Nom (Bld) CULTURE, BLOOD: No growth 5 days Normal [facility] Comment on above: Performed By: #### 6 00-7 ####[facility] LABCLIA [id number] [place] [address] [place] Bacteria identified Cx Nom (Bld) CULTURE, BLOOD: No growth 5 days Normal [facility] Comment on above: Performed By: #### 6 00-7 ####[facility]CLIA [id number] [place] [address] [place] Bas Metab 2000 Pnl SerPlon 0 03-07-2023 Anion gap [Moles/Vol] 16 mmol/L Normal 9-18 [facility] Comment on above: Order Comment: Speci men Type: BLOOD SPECIMENOrdering Facility: [facility] Address: [address] [place], [place] [address] Performed By: #### 1 9123-9, 34860-5, 27948-3 ####[facility] LABCLIA [id number] [place] [address] [place] Calcium [Mass/Vol] 9.4 mg/dL Normal 8.5-10.[address] [facility] Comment on above: Order Comment: Speci men Type: BLOOD SPECIMENOrdering Facility: [facility] Address: [address] [place] [address] Performed By: #### 1 9123-9, 39405-2, 20702-3 ####[facility] LABCLIA [id number] [facility] [place] [address] [place] Chloride [Moles/Vol] 99 mmol/L Normal 97-105 [facility] Comment on above: Order Comment: Speci men Type: BLOOD SPECIMENOrdering Facility: [facility] Address: [address] [place] [address] Performed By: #### 1 9123-9, 20478-9, 53856-0 ####[facility]CLIA [id number] [place] [address] [place] CO2 [Moles/Vol] 25 mmol/L Normal 22-30 [facility] Comment on above: Order Comment: Speci men Type: BLOOD SPECIMENOrdering Facility: [facility] Address: [address] [place] [address] Performed By: #### 1 9123-9, 61334-4, 50120-9 ####[facility]CLIA [id number] [place] [address] [place] Creatinine [Mass/Vol] 8.13 mg/dL High 0.58-0.96 [facility] Comment on above: Order Comment: Speci men Type: BLOOD SPECIMENOrdering Facility: [facility] Address: [address] [place], [place] [address] Performed By: #### 1 9123-9, 82483-8, 47208-2 ####[facility] LABCLIA [id number] [place] [address] [place] ESTIMATED GLOMERULAR FILTRATION RATE 5 mL/min/1.73m??? Low >=60 [facility] Comment on above: Order Comment: Speci men Type: BLOOD SPECIMENOrdering Facility: [facility] Address: [address] [place] [phone] Performed By: #### 1 9123-9, 20125-3, 75922-4 ####[facility] LABCLIA [id number] [address] [id number] [address] [place] Result Comment: Karen mated Glomerular Filtration Rate (eGFR) is calculated using the 2020 CKD-EPI creatinine equation. This equation utilizes serum creatinine, sex, and age as parameters. The creatinine assay has traceable calibration to isotope dilution-mass spectrometry. Refer to KDIGO guidelines for clinical interpretation. In patients with unstable renal function, e.g. those with acute kidney injury, the eGFR may not accurately reflect actual GFR. Glucose [Mass/Vol] 120 mg/dL High 74-[address] [facility] Comment on above: Order Comment: Matti bernal Type: BLOOD SPECIMENOrdering Facility: [facility] Address: [address] [phone] Result Comment: The [place] Diabetes Association (ADA) provides guidance for cutoff values for fasting glucose and random glucose. The ADA defines fasting as no caloric intake for at least 8 hours. Fasting plasma glucose results between 100 to 125 mg/dL indicate increased risk for diabetes (prediabetes).Fasting plasma glucose results greater than or equal to 126 mg/dL meet the criteria for diagnosis of diabetes. In the absence of unequivocal hyperglycemia, results should be confirmed by repeat testing. In a patient with classic symptoms of hyperglycemia or hyperglycemic crisis, random plasma glucose results greater than or equal to 200 mg/dL meet the criteria for diagnosis of diabetes.Reference: Standards of Medical Care in Diabetes 2016, [place] [employer]. Diabetes Care. 2016.39(Suppl 1).The [place] Diabetes Association (ADA) provides guidance for cutoff values for fasting glucose and random glucose. The ADA defines fasting as no caloric intake for at least 8 hours. Fasting plasma glucose results between 100 to 125 mg/dL indicate increased risk for diabetes (prediabetes).Fasting plasma glucose results greater than or equal to 126 mg/dL meet the criteria for diagnosis of diabetes. In the absence of unequivocal hyperglycemia, results should be confirmed by repeat testing. In a patient with classic symptoms of hyperglycemia or hyperglycemic crisis, random plasma glucose results greater than or equal to 200 mg/dL meet the criteria for diagnosis of diabetes.Reference: Standards of Medical Care in Diabetes 2016, [place] [employer]. Diabetes Care. 2016.39(Suppl 1). Performed By: #### 1 9123-9, 95575-9, 59340-7 ####[facility]CLIA [id number] [place] [address] [place] Result Comment: The [place] Diabetes Association (ADA) provides guidance for cutoff values for fasting glucose and random glucose. The ADA defines fasting as no caloric intake for at least 8 hours. Fasting plasma glucose results between 100 to 125 mg/dL indicate increased risk for diabetes (prediabetes).Fasting plasma glucose results greater than or equal to 126 mg/dL meet the criteria for diagnosis of diabetes. In the absence of unequivocal hyperglycemia, results should be confirmed by repeat testing. In a patient with classic symptoms of hyperglycemia or hyperglycemic crisis, random plasma glucose results greater than or equal to 200 mg/dL meet the criteria for diagnosis of diabetes.Reference: Standards of Medical Care in Diabetes 2016, [place] [employer]. Diabetes Care. 2016.39(Suppl 1). Potassium [Moles/Vol] 4.2 mmol/L Normal 3.7-5.1 [facility] Comment on above: Order Comment: Speci men Type: BLOOD SPECIMENOrdering Facility: [facility] Address: [address] [place] [address] Performed By: #### 1 9123-9, 75401-8, 46510-7 ####[facility] LABCLIA [id number] [place] [address] [place] Sodium [Moles/Vol] 140 mmol/L Normal 136-[address] [facility] Comment on above: Order Comment: Speci men Type: BLOOD SPECIMENOrdering Facility: [facility] Address: [address] [place] [address] Performed By: #### 1 9123-9, 90661-9, 03811-7 ####[facility]CLIA [id number] [place] [address] [place] Urea nitrogen [Mass/Vol] 40 mg/dL High 7-21 [facility] Comment on above: Order Comment: Speci men Type: BLOOD SPECIMENOrdering Facility: [facility] Address: [address] [place] [address] Performed By: #### 1 9123-9, 27200-3, 73282-3 ####[facility]CLIA [id number] [place] [address] [place] CBC W Auto Differential pane l (Bld)on 03-07-2023 Basophils (Bld) [#/Vol] 10*3/uL Normal <0.11 [facility] Comment on above: Order Comment: Speci men Type: BLOOD SPECIMENOrdering Facility: [facility] Address: [address] [place] [address] Performed By: #### 5 7021-8 ####[facility]CLIA [id number] [place] [address] [place] Basophils/100 WBC (Bld) 0.3 % Normal [facility] Comment on above: Order Comment: Speci men Type: BLOOD SPECIMENOrdering Facility: [facility] Address: [address] [place] [address] Performed By: #### 5 7021-8 ####[facility]CLIA [id number] [address] [place] OF [facility] Differential cell count method Nom (Bld) Auto Normal [facility] Comment on above: Order Comment: Speci men Type: BLOOD SPECIMENOrdering Facility: [facility] Address: [address] [place] [address] Performed By: #### 5 7021-8 ####[facility]CLIA [id number] [place] [address] [place] Eosinophils (Bld) [#/Vol] 0.09 10*3/uL Normal <0.46 [facility] Comment on above: Order Comment: Speci men Type: BLOOD SPECIMENOrdering Facility: [facility] Address: [address] Performed By: #### 5 7021-8 ####[facility]CLIA [id number] [address] [place] Eosinophils/100 WBC (Bld) 1.2 % Normal [facility] Comment on above: Order Comment: Speci men Type: BLOOD SPECIMENOrdering Facility: [facility] Address: [address] [place] [address] Performed By: #### 5 7021-8 ####[facility]CLIA [id number] [place] [address] [place] Erythrocyte distribution width (RBC) [Ratio] 14.5 % Normal 11.5-15.0 [facility] Comment on above: Order Comment: Speci men Type: BLOOD SPECIMENOrdering Facility: [facility] Address: [address] Performed By: #### 5 7021-8 ####[facility]CLIA [id number] [place] [address] [place] Hematocrit (Bld) [Volume fraction] 30.4 % Low 36.0-46.0 [facility] Comment on above: Order Comment: Speci men Type: BLOOD SPECIMENOrdering Facility: [facility] Address: [address] Performed By: #### 5 7021-8 ####[facility]CLIA [id number] [place] [address] [place] Hemoglobin (Bld) [Mass/Vol] 10.1 g/dL Low 11.5-15.5 [facility] Comment on above: Order Comment: Speci men Type: BLOOD SPECIMENOrdering Facility: [facility] Address: [address] Performed By: #### 5 7021-8 ####[facility]CLIA [id number] [place] [address] [place] Immature granulocytes (Bld) [#/Vol] 0.03 10*3/uL Normal <0.10 [facility] Comment on above: Order Comment: Speci men Type: BLOOD SPECIMENOrdering Facility: [facility] Address: [address] [place] [address] Performed By: #### 5 7021-8 ####[facility]CLIA [id number] [address] [place] Immature granulocytes/100 WBC (Bld) 0.4 % Normal [facility] Comment on above: Order Comment: Speci men Type: BLOOD SPECIMENOrdering Facility: [facility] Address: [address] [place] [address] Performed By: #### 5 7021-8 ####[facility] [id number] [place] [address] [place] Lymphocytes (Bld) [#/Vol] 2.15 10*3/uL Normal 1.00-4.00 [facility] Comment on above: Order Comment: Speci men Type: BLOOD SPECIMENOrdering Facility: [facility] Address: [address] [place], [place] [address] Performed By: #### 5 7021-8 ####[facility] [id number] [place] [address] [place] Lymphocytes/100 WBC (Bld) 29.2 % Normal [facility] Comment on above: Order Comment: Speci men Type: BLOOD SPECIMENOrdering Facility: [facility] Address: [address] [place], [place] [address] Performed By: #### 5 7021-8 ####[facility] [id number] [place] [address] [place] MCH (RBC) [Entitic mass] 26.7 pg Normal 26.0-34.0 [facility] Comment on above: Order Comment: Speci men Type: BLOOD SPECIMENOrdering Facility: [facility] Address: [address] Performed By: #### 5 7021-8 ####[facility] [id number] [place] [address] [place] MCHC (RBC) [Mass/Vol] 33.2 g/dL Normal 30.5-36.0 [facility] Comment on above: Order Comment: Speci men Type: BLOOD SPECIMENOrdering Facility: [facility] Address: [address] [place], [place] [address] Performed By: #### 5 7021-8 ####[facility] [id number] [place] [address] [place] MCV (RBC) [Entitic vol] 80.4 fL Normal 80.0-100.0 [facility] Comment on above: Order Comment: Speci men Type: BLOOD SPECIMENOrdering Facility: [facility] Address: [address] Performed By: #### 5 7021-8 ####[facility] [id number] [place] [address] [place] Monocytes (Bld) [#/Vol] 0.50 10*3/uL Normal <0.87 [facility] Comment on above: Order Comment: Speci men Type: BLOOD SPECIMENOrdering Facility: [facility] Address: [address] Performed By: #### 5 7021-8 ####[facility] [id number] [address] [place] Monocytes/100 WBC (Bld) 6.8 % Normal [facility] Comment on above: Order Comment: Speci men Type: BLOOD SPECIMENOrdering Facility: [facility] Address: [address] Performed By: #### 5 7021-8 ####[facility]CLIA [id number] [place] [address] [place] Neutrophils (Bld) [#/Vol] 4.58 10*3/uL Normal 1.45-7.50 [facility] Comment on above: Order Comment: Speci men Type: BLOOD SPECIMENOrdering Facility: [facility] Address: [address] [place] [address] Performed By: #### 5 7021-8 ####[facility] [id number] [place] [address] [place] Neutrophils/100 WBC (Bld) 62.1 % Normal [facility] Comment on above: Order Comment: Speci men Type: BLOOD SPECIMENOrdering Facility: [facility] Address: [address] [place] [address] Performed By: #### 5 7021-8 ####[facility] [id number] [place] [address] [place] Nucleated RBC (Bld) [#/Vol] 10*3/uL Normal <0.01 [facility] Comment on above: Order Comment: Speci men Type: BLOOD SPECIMENOrdering Facility: [facility] Address: [address] [place] [address] Performed By: #### 5 7021-8 ####[facility] [id number] [place] [address] [place] Nucleated RBC/100 WBC (Bld) [Ratio] 0.0 /100 WBC Normal [facility] Comment on above: Order Comment: Speci men Type: BLOOD SPECIMENOrdering Facility: [facility] Address: [address] [place], [place] [address] Performed By: #### 5 7021-8 ####[facility] [id number] [place] [address] [place] Platelet mean volume (Bld) [Entitic vol] 10.4 fL Normal 9.0-12.7 [facility] Comment on above: Order Comment: Speci men Type: BLOOD SPECIMENOrdering Facility: [facility] Address: [address] [place] [address] Performed By: #### 5 7021-8 ####[facility]CLIA [id number] [place] [address] [place] Platelets (Bld) [#/Vol] 302 10*3/uL Normal 150-400 [facility] Comment on above: Order Comment: Speci men Type: BLOOD SPECIMENOrdering Facility: [facility] Address: [address] [place], [place] [address] Performed By: #### 5 7021-8 ####[facility]CLIA [id number] [place] [address] [place] RBC (Bld) [#/Vol] 3.78 10*6/uL Low 3.90-5.20 [facility] Comment on above: Order Comment: Speci men Type: BLOOD SPECIMENOrdering Facility: [facility] Address: [address] [place], [place] [address] Performed By: #### 5 7021-8 ####[facility]CLIA [id number] [place] [address] [place] WBC (Bld) [#/Vol] 7.37 10*3/uL Normal 3.70-11.00 [facility] Comment on above: Order Comment: Speci men Type: BLOOD SPECIMENOrdering Facility: [facility] Address: [address] [place] [address] Performed By: #### 5 7021-8 ####[facility]CLIA [id number] [place] [address] [place] CONSULT PROGon 03-07-2023 CONSULT PROG Normal [facility] CONSULT PROG Normal [facility] CONSULT PROG Normal [facility] HISTORY PHYSICALon HISTORY PHYSICAL Normal [facility] IR CENTRAL CATH PLACEMENTon 03-07-2023 IR CENTRAL CATH PLACEMENT Normal [facility] Magnesium SerPl-mCncon 03-07 Magnesium [Mass/Vol] 2.3 mg/dL Normal 1.7-2.3 [facility] Comment on above: Order Comment: Speci men Type: BLOOD SPECIMENOrdering Facility: [facility] Address: [address] [place] [address] Performed By: #### 1 9123-9, 66891-3, 00079-8 ####[facility]CLIA [id number] [place] [address] [place] PT EDon 03-07-2023 PT ED Normal [facility] Renal function 2000 panelon 03-07-2023 Albumin [Mass/Vol] 3.3 g/dL Low 3.9-4.[address] [facility] Comment on above: Order Comment: Speci men Type: BLOOD SPECIMENOrdering Facility: [facility] Address: [address] Performed By: #### 1 9123-9, 67876-6, 59050-6 ####[facility]CLIA [id number] [place] [address] [place] Phosphate [Mass/Vol] 8.0 mg/dL High 2.7-4.8 [facility] Comment on above: Order Comment: Speci men Type: BLOOD SPECIMENOrdering Facility: [facility] Address: [address] [place] [phone] Performed By: #### 1 9123-9, 54453-6, 00497-3 ####[facility]CLIA [id number] [address] [address] [place] ALLIED HEALTHon 03-06-2023 ALLIED HEALTH Normal [facility] Basic metabolic 2000 panelon 03-06-2023 Anion gap [Moles/Vol] 14 mmol/L Normal 9-18 [facility] Comment on above: Order Comment: Speci men Type: BLOOD SPECIMENOrdering Facility: [facility] Address: [address] [address] Performed By: #### 2 4321-2, 14569-8 ####[facility] LABCLIA [id number] [place] [address] [place] Calcium [Mass/Vol] 8.2 mg/dL Low 8.5-10.[address] [facility] Comment on above: Order Comment: Speci men Type: BLOOD SPECIMENOrdering Facility: [facility] Address: [address] [address] Performed By: #### 2 4321-2, 45364-3 ####[facility] LABCLIA [id number] [place] [address] [place] Chloride [Moles/Vol] 105 mmol/L Normal 97-105 [facility] Comment on above: Order Comment: Speci men Type: BLOOD SPECIMENOrdering Facility: [facility] Address: [address] [place] [address] Performed By: #### 2 4321-2, 89093-1 ####[facility] LABCLIA [id number] [place] [address] [place] CO2 [Moles/Vol] 18 mmol/L Low 22-30 [facility] Comment on above: Order Comment: Speci men Type: BLOOD SPECIMENOrdering Facility: [facility] Address: [address] Performed By: #### 2 4321-2, 23794-8 ####[facility] LABCLIA [id number] [place] [address] [place] Creatinine [Mass/Vol] 6.71 mg/dL High 0.58-0.96 [facility] Comment on above: Order Comment: Speci men Type: BLOOD SPECIMENOrdering Facility: [facility] Address: [address] [address] Performed By: #### 2 4321-2, 51360-7 ####[facility] LABIA [id number] [place] [address] [place] ESTIMATED GLOMERULAR FILTRATION RATE 7 mL/min/1.73m??? Low >=60 [facility] Comment on above: Order Comment: Matti bernal Type: BLOOD SPECIMENOrdering Facility: [facility] Address: [address] [address] Result Comment: Karen mated Glomerular Filtration Rate (eGFR) is calculated using the 2020 CKD-EPI creatinine equation. This equation utilizes serum creatinine, sex, and age as parameters. The creatinine assay has traceable calibration to isotope dilution-mass spectrometry. Refer to KDIGO guidelines for clinical interpretation. In patients with unstable renal function, e.g. those with acute kidney injury, the eGFR may not accurately reflect actual GFR. Performed By: #### 2 4321-2, 59998-0 ####[facility] LABIA [id number] [place] [address] [place] Glucose [Mass/Vol] 107 mg/dL High 74-[address] [facility] Comment on above: Order Comment: Matti bernal Type: BLOOD SPECIMENOrdering Facility: [facility] Address: [address] [address] Result Comment: The [place] Diabetes Association (ADA) provides guidance for cutoff values for fasting glucose and random glucose. The ADA defines fasting as no caloric intake for at least 8 hours. Fasting plasma glucose results between 100 to 125 mg/dL indicate increased risk for diabetes (prediabetes).Fasting plasma glucose results greater than or equal to 126 mg/dL meet the criteria for diagnosis of diabetes. In the absence of unequivocal hyperglycemia, results should be confirmed by repeat testing. In a patient with classic symptoms of hyperglycemia or hyperglycemic crisis, random plasma glucose results greater than or equal to 200 mg/dL meet the criteria for diagnosis of diabetes.Reference: Standards of Medical Care in Diabetes 2016, [place] [employer]. Diabetes Care. 2016.39(Suppl 1). Performed By: #### 2 4321-2, 11498-1 ####[facility] LABCLIA [id number] [place] [address] [place] Potassium [Moles/Vol] 4.8 mmol/L Normal 3.7-5.1 [facility] Comment on above: Order Comment: Speci men Type: BLOOD SPECIMENOrdering Facility: [facility] Address: [address] [place] [address] Performed By: #### 2 4321-2, 46980-1 ####[facility] LABIA [id number] [place] [address] [place] Sodium [Moles/Vol] 137 mmol/L Normal 136-[address] [facility] Comment on above: Order Comment: Speci men Type: BLOOD SPECIMENOrdering Facility: [facility] Address: [address] [place] [address] Performed By: #### 2 4321-2, 34248-2 ####[facility] LABIA [id number] [place] [address] [place] Urea nitrogen [Mass/Vol] 33 mg/dL High 7-21 [facility] Comment on above: Order Comment: Speci men Type: BLOOD SPECIMENOrdering Facility: [facility] Address: [address] [place] [address] Performed By: #### 2 4321-2, 74784-2 ####[facility] LABIA [id number] [place] [address] [place] CBC W Auto Differential pane l (Bld)on 03-06-2023 Basophils (Bld) [#/Vol] 10*3/uL Normal <0.11 [facility] Comment on above: Order Comment: Speci men Type: BLOOD SPECIMENOrdering Facility: [facility] Address: [address] [place] [address] Performed By: #### 5 7021-8 ####[facility] LABIA [id number] [place] Basophils/100 WBC (Bld) 0.4 % Normal [facility] Comment on above: Order Comment: Speci men Type: BLOOD SPECIMENOrdering Facility: [facility] Address: [address] [address] Performed By: #### 5 7021-8 ####[facility] LABCLIA [id number] [place] [address] [place] Differential cell count method Nom (Bld) Auto Normal [facility] Comment on above: Order Comment: Speci men Type: BLOOD SPECIMENOrdering Facility: [facility] Address: [address] [place], [place] [address] Performed By: #### 5 7021-8 ####[facility] LABCLIA [id number] [place] [address] [place] Eosinophils (Bld) [#/Vol] 0.12 10*3/uL Normal <0.46 [facility] Comment on above: Order Comment: Speci men Type: BLOOD SPECIMENOrdering Facility: [facility] Address: [address] [place], [place] [address] Performed By: #### 5 7021-8 ####[facility] LABCLIA [id number] [address] [place] Eosinophils/100 WBC (Bld) 2.4 % Normal [facility] Comment on above: Order Comment: Speci men Type: BLOOD SPECIMENOrdering Facility: [facility] Address: [address] Performed By: #### 5 7021-8 ####[facility] LABCLIA [id number] [place] [address] [place] Erythrocyte distribution width (RBC) [Ratio] 14.6 % Normal 11.5-15.0 [facility] Comment on above: Order Comment: Speci men Type: BLOOD SPECIMENOrdering Facility: [facility] Address: [address] [place] [id number] Performed By: #### 5 7021-8 ####[facility] LABIA [id number] [place] [address] [place] Hematocrit (Bld) [Volume fraction] 26.3 % Low 36.0-46.0 [facility] Comment on above: Order Comment: Speci men Type: BLOOD SPECIMENOrdering Facility: [facility] Address: [address] Performed By: #### 5 7021-8 ####[facility] LABIA [id number] [place] [address] [place] Hemoglobin (Bld) [Mass/Vol] 8.5 g/dL Low 11.5-15.5 [facility] Comment on above: Order Comment: Speci men Type: BLOOD SPECIMENOrdering Facility: [facility] Address: [address] Performed By: #### 5 7021-8 ####[facility] LABIA [id number] [place] [address] [place] Immature granulocytes (Bld) [#/Vol] 10*3/uL Normal <0.10 [facility] Comment on above: Order Comment: Speci men Type: BLOOD SPECIMENOrdering Facility: [facility] Address: [address] Performed By: #### 5 7021-8 ####[facility] LABIA [id number] [address] [place] Immature granulocytes/100 WBC (Bld) 0.2 % Normal [facility] Comment on above: Order Comment: Speci men Type: BLOOD SPECIMENOrdering Facility: [facility] Address: [address] [place] [address] Performed By: #### 5 7021-8 ####[facility] LABIA [id number] [place] [address] [place] Lymphocytes (Bld) [#/Vol] 1.33 10*3/uL Normal 1.00-4.00 [facility] Comment on above: Order Comment: Speci men Type: BLOOD SPECIMENOrdering Facility: [facility] Address: [address] [place] [address] Performed By: #### 5 7021-8 ####[facility] LABCLIA [id number] [address] [facility] Lymphocytes/100 WBC (Bld) 26.5 % Normal [facility] Comment on above: Order Comment: Speci men Type: BLOOD SPECIMENOrdering Facility: [facility] Address: [address] [place] [address] Performed By: #### 5 7021-8 ####[facility] LABIA [id number] [address] [place] MCH (RBC) [Entitic mass] 26.6 pg Normal 26.0-34.0 [facility] Comment on above: Order Comment: Speci men Type: BLOOD SPECIMENOrdering Facility: [facility] Address: [address] [place] [address] Performed By: #### 5 7021-8 ####[facility] LABIA [id number] [address] [place] MCHC (RBC) [Mass/Vol] 32.3 g/dL Normal 30.5-36.0 [facility] Comment on above: Order Comment: Speci men Type: BLOOD SPECIMENOrdering Facility: [facility] Address: [address] [place], [place] [address] Performed By: #### 5 7021-8 ####[facility] LABCLIA [id number] [address] [place] MCV (RBC) [Entitic vol] 82.4 fL Normal 80.0-100.0 [facility] Comment on above: Order Comment: Speci men Type: BLOOD SPECIMENOrdering Facility: [facility] Address: [address] [address] Performed By: #### 5 7021-8 ####[facility] LABCLIA [id number] [place] [address] [place] Monocytes (Bld) [#/Vol] 0.46 10*3/uL Normal <0.87 [facility] Comment on above: Order Comment: Speci men Type: BLOOD SPECIMENOrdering Facility: [facility] Address: [address] [address] Performed By: #### 5 7021-8 ####[facility] LABCLIA [id number] [place] [address] [place] Monocytes/100 WBC (Bld) 9.2 % Normal [facility] Comment on above: Order Comment: Speci men Type: BLOOD SPECIMENOrdering Facility: [facility] Address: [address] Performed By: #### 5 7021-8 ####[facility] LABCLIA [id number] [place] [address] [place] Neutrophils (Bld) [#/Vol] 3.07 10*3/uL Normal 1.45-7.50 [facility] Comment on above: Order Comment: Speci men Type: BLOOD SPECIMENOrdering Facility: [facility] Address: [address] Performed By: #### 5 7021-8 ####[facility] LABCLIA [id number] [place] [address] [place] Neutrophils/100 WBC (Bld) 61.3 % Normal [facility] Comment on above: Order Comment: Speci men Type: BLOOD SPECIMENOrdering Facility: [facility] Address: [address] Performed By: #### 5 7021-8 ####[facility] LABCLIA [id number] [place] [address] [place] Nucleated RBC (Bld) [#/Vol] 10*3/uL Normal <0.01 [facility] Comment on above: Order Comment: Speci men Type: BLOOD SPECIMENOrdering Facility: [facility] Address: [address] [place] [address] Performed By: #### 5 7021-8 ####[facility] LABIA [id number] [place] [address] [place] Nucleated RBC/100 WBC (Bld) [Ratio] 0.0 /100 WBC Normal [facility] Comment on above: Order Comment: Speci men Type: BLOOD SPECIMENOrdering Facility: [facility] Address: [address] [place], [place] [address] Performed By: #### 5 7021-8 ####[facility] LABIA [id number] [place] [address] [place] Platelet mean volume (Bld) [Entitic vol] 10.6 fL Normal 9.0-12.7 [facility] Comment on above: Order Comment: Speci men Type: BLOOD SPECIMENOrdering Facility: [facility] Address: [address] [place], [place] [address] Performed By: #### 5 7021-8 ####[facility] LABIA [id number] [place] [address] [place] Platelets (Bld) [#/Vol] 258 10*3/uL Normal 150-400 [facility] Comment on above: Order Comment: Speci men Type: BLOOD SPECIMENOrdering Facility: [facility] Address: [address] [place], [place] [address] Performed By: #### 5 7021-8 ####[facility] LABCLIA [id number] [place] [address] [place] RBC (Bld) [#/Vol] 3.19 10*6/uL Low 3.90-5.20 [facility] Comment on above: Order Comment: Speci men Type: BLOOD SPECIMENOrdering Facility: [facility] Address: [address] [place] [address] Performed By: #### 5 7021-8 ####[facility] LABCLIA [id number] [place] [address] [place] WBC (Bld) [#/Vol] 5.01 10*3/uL Normal 3.70-11.00 [facility] Comment on above: Order Comment: Speci men Type: BLOOD SPECIMENOrdering Facility: [facility] Address: [address] [place] [address] Performed By: #### 5 7021-8 ####[facility] LABIA [id number] [place] [address] [place] CONSULT PROGon 03-06-2023 CONSULT PROG Normal [facility] CONSULT PROG Normal [facility] CONSULT PROG Normal [facility] CRP SerPl-mCncon 03-06-2023 CRP [Mass/Vol] 2.2 mg/dL High <0.9 [facility] Comment on above: Order Comment: Speci men Type: BLOOD SPECIMENOrdering Facility: [facility] Address: [address] [place] [address] Performed By: #### 1 988-5, 40148-7, 05671-6, 2776-1 ####[facility] LABCLIA [id number] [place] [address] [place] Hepatic function 2000 panelo n 03-06-2023 Albumin [Mass/Vol] 2.7 g/dL Low 3.9-4.[address] [facility] Comment on above: Order Comment: Speci men Type: BLOOD SPECIMENOrdering Facility: [facility] Address: [address] [place] [address] Performed By: #### 1 988-5, 60227-7, 09601-0, 2776-10 ####[facility] LABCLIA [id number] [place] [address] [place] ALP [Catalytic activity/Vol] 125 U/L High 34-123 [facility] Comment on above: Order Comment: Speci men Type: BLOOD SPECIMENOrdering Facility: [facility] Address: [address] [place] [address] Performed By: #### 1 988-5, 27620-6, , 2776-10 ####[facility] LABIA [id number] [place] [address] [place] ALT [Catalytic activity/Vol] 30 U/L Normal 7-38 [facility] Comment on above: Order Comment: Speci men Type: BLOOD SPECIMENOrdering Facility: [facility] Address: [address] [place] [address] Performed By: #### 1 988-5, 75782-5, , 2776-10 ####[facility] LABIA [id number] [place] [address] [place] AST [Catalytic activity/Vol] 22 U/L Normal 13-35 [facility] Comment on above: Order Comment: Speci men Type: BLOOD SPECIMENOrdering Facility: [facility] Address: [address] [place] [address] Performed By: #### 1 988-5, 65688-3, , 2776-10 ####[facility] LABIA [id number] [place] [id number] [place] Bilirubin [Mass/Vol] 0.9 mg/dL Normal 0.2-1.3 [facility] Comment on above: Order Comment: Speci men Type: BLOOD SPECIMENOrdering Facility: [facility] Address: [address] [place] [address] Performed By: #### 1 988-5, 73207-9, , 2776-10 ####[facility] LABCLIA [id number] [place] [id number] [place] Bilirubin.conjugated [Mass/Vol] 0.3 mg/dL High <0.2 [facility] Comment on above: Order Comment: Speci men Type: BLOOD SPECIMENOrdering Facility: [facility] Address: [address] [place] [address] Performed By: #### 1 988-5, 55397-3, , 2776-10 ####[facility] LABIA [id number] [place] [address] [place] Protein [Mass/Vol] 5.6 g/dL Low 6.3-8.[address] [facility] Comment on above: Order Comment: Speci men Type: BLOOD SPECIMENOrdering Facility: [facility] Address: [address] [place] [address] Performed By: #### 1 988-5, 47291-0, , 2776-10 ####[facility] LABIA [id number] [place] [address] [place] Magnesium SerPl-mCncon 03-06 Magnesium [Mass/Vol] 2.5 mg/dL High 1.7-2.3 [facility] Comment on above: Order Comment: Speci men Type: BLOOD SPECIMENOrdering Facility: [facility] Address: [address] [place] [address] Performed By: #### 1 988-5, 93137-0, , 2776-10 ####[facility] LABIA [id number] [place] [id number] [place] Phosphate SerPl-mCncon 03-06 Phosphate [Mass/Vol] 8.8 mg/dL High 2.7-4.8 [facility] Comment on above: Order Comment: Speci men Type: BLOOD SPECIMENOrdering Facility: [facility] Address: [address] [place], [place] [address] [address] Performed By: #### 1 988-5, 31163-7, 38241-7, 2777-1 ####[facility] LABCLIA [id number] [address] [place] Prealb SerPl-mCncon 03-06-20 Prealbumin [Mass/Vol] 18 mg/dL Normal 17-36 [facility] Comment on above: Order Comment: Speci men Type: BLOOD SPECIMENOrdering Facility: [facility] Address: [address] [address] Performed By: #### 2 4321-2, 21535-5 ####[facility] LABCLIA [id number] [address] [place] Vancomycin Kelayres SerPl-mCncon 03-06-2023 Vancomycin random [Mass/Vol] 29.8 ug/mL High 10.0-20.0 [facility] Comment on above: Order Comment: Speci men Type: BLOOD SPECIMENOrdering Facility: [facility] Address: [address] [address] Result Comment: Refe rence ranges and high/low indicator flags are provided as general guidelines only. The treating physician must determine appropriate target levels/dosing based on the specific clinical situation. Performed By: #### 4 091-5 ####[facility] LABCLIA [id number] [place] [address] [place] Basic metabolic 2000 panelon 03-05-2023 Anion gap [Moles/Vol] 13 mmol/L Normal 9-18 [facility] Comment on above: Order Comment: Speci men Type: BLOOD SPECIMENOrdering Facility: [facility] Address: [address] [place] [place] [address] Performed By: #### 2 4321-2, 74286-9, 4498-2, 2777-1, 4485-9 ####[facility] LABCLIA [id number] [place] [address] [place] Calcium [Mass/Vol] 7.9 mg/dL Low 8.5-10.[address] [facility] Comment on above: Order Comment: Speci men Type: BLOOD SPECIMENOrdering Facility: [facility] Address: [address] [place] [address] Performed By: #### 2 4321-2, 56150-8, 449-2, 2777-1, 4484-9 ####[facility] LABIA [id number] [place] [address] [place] Chloride [Moles/Vol] 105 mmol/L Normal 97-105 [facility] Comment on above: Order Comment: Speci men Type: BLOOD SPECIMENOrdering Facility: [facility] Address: [address] [place] [address] Performed By: #### 2 4321-2, 32904-2, 449-2, 2777-1, 4484-9 ####[facility] LABIA [id number] [place] [address] [place] CO2 [Moles/Vol] 18 mmol/L Low 22-30 [facility] Comment on above: Order Comment: Speci men Type: BLOOD SPECIMENOrdering Facility: [facility] Address: [address] [place] [address] Performed By: #### 2 4321-2, 35910-9, 449-2, 2777-1, 4484-9 ####[facility] LABIA [id number] [place] [id number] [place] Creatinine [Mass/Vol] 4.36 mg/dL High 0.58-0.96 [facility] Comment on above: Order Comment: Speci men Type: BLOOD SPECIMENOrdering Facility: [facility] Address: [address] [place] [address] Performed By: #### 2 432-2, 38200-0, 4497-2, 2777-1, 4489 ####[facility] LABCLIA [id number] [place] [address] [place] ESTIMATED GLOMERULAR FILTRATION RATE 11 mL/min/1.73m??? Low >=60 [facility] Comment on above: Order Comment: Matti bernal Type: BLOOD SPECIMENOrdering Facility: [facility] Address: [address] [place] [address] Result Comment: Karen mated Glomerular Filtration Rate (eGFR) is calculated using the 2020 CKD-EPI creatinine equation. This equation utilizes serum creatinine, sex, and age as parameters. The creatinine assay has traceable calibration to isotope dilution-mass spectrometry. Refer to KDIGO guidelines for clinical interpretation. In patients with unstable renal function, e.g. those with acute kidney injury, the eGFR may not accurately reflect actual GFR. Performed By: #### 2 4321-2, 06293-8, 4498-2, 2776-1, 9 ####[facility] LABCLIA [id number] [place] [address] [place] Glucose [Mass/Vol] 107 mg/dL High 74-[address] [facility] Comment on above: Order Comment: Matti bernal Type: BLOOD SPECIMENOrdering Facility: [facility] Address: [address] [place] [address] Result Comment: The [place] [employer] (ADA) provides guidance for cutoff values for fasting glucose and random glucose. The ADA defines fasting as no caloric intake for at least 8 hours. Fasting plasma glucose results between 100 to 125 mg/dL indicate increased risk for diabetes (prediabetes).Fasting plasma glucose results greater than or equal to 126 mg/dL meet the criteria for diagnosis of diabetes. In the absence of unequivocal hyperglycemia, results should be confirmed by repeat testing. In a patient with classic symptoms of hyperglycemia or hyperglycemic crisis, random plasma glucose results greater than or equal to 200 mg/dL meet the criteria for diagnosis of diabetes.Reference: Standards of Medical Care in Diabetes 2016, [place] [employer]. Diabetes Care. 2016.39(Suppl 1). Performed By: #### 2 4321-2, 08475-1, 8-2, 2777-1, 4485-9 ####[facility] LABCLIA [id number] [address] [address] [place] Potassium [Moles/Vol] 4.3 mmol/L Normal 3.7-5.1 [facility] Comment on above: Order Comment: Speci men Type: BLOOD SPECIMENOrdering Facility: [facility] Address: [address] [place], [place] [address] Performed By: #### 2 4321-2, 44469-7, 4498-2, 2777-1, 448-9 ####[facility] LABIA [id number] [place] [id number] [place] Sodium [Moles/Vol] 136 mmol/L Normal 136-[address] [facility] Comment on above: Order Comment: Speci men Type: BLOOD SPECIMENOrdering Facility: [facility] Address: [address] [place], [place] [address] Performed By: #### 2 4321-2, 77234-5, 4498-2, 2777-1, 448-9 ####[facility] LABIA [id number] [place] [id number] [place] Urea nitrogen [Mass/Vol] 34 mg/dL High 7-21 [facility] Comment on above: Order Comment: Speci men Type: BLOOD SPECIMENOrdering Facility: [facility] Address: [address] [place] [address] Performed By: #### 2 4321-2, 22052-2, 4498-2, 2777-1, 448-9 ####[facility]IA [id number] [place] [id number] [place] C3 SerPl-mCncon 03-05-2023 Complement C3 [Mass/Vol] 123 mg/dL Normal 86-166 [facility] Comment on above: Order Comment: Speci men Type: BLOOD SPECIMENOrdering Facility: [facility] Address: [address] [place], [place] [address] Performed By: #### 2 4321-2, 33168-1, 4498-2, 2777-1, 4485-9 ####[facility] LABCLIA [id number] [place] [address] [place] C4 SerPl-mCncon 03-05-2023 Complement C4 [Mass/Vol] 19 mg/dL Normal 13-46 [facility] Comment on above: Order Comment: Speci men Type: BLOOD SPECIMENOrdering Facility: [facility] Address: [address] Performed By: #### 2 4321-2, 94245-0, 4498-2, 2777-1, 448-9 ####[facility] LABCLIA [id number] [place] [address] [place] CBC panel Auto (Bld)on 03-05 Erythrocyte distribution width (RBC) [Ratio] 14.9 % Normal 11.5-15.0 [facility] Comment on above: Order Comment: Speci men Type: BLOOD SPECIMENOrdering Facility: [facility] Address: [address] Performed By: #### 5 8410-2 ####[facility] LABCLIA [id number] [place] [address] [place] Hematocrit (Bld) [Volume fraction] 27.5 % Low 36.0-46.0 [facility] Comment on above: Order Comment: Speci men Type: BLOOD SPECIMENOrdering Facility: [facility] Address: [address] Performed By: #### 5 8410-2 ####[facility] LABCLIA [id number] [place] [address] [place] Hemoglobin (Bld) [Mass/Vol] 8.8 g/dL Low 11.5-15.5 [facility] Comment on above: Order Comment: Speci men Type: BLOOD SPECIMENOrdering Facility: [facility] Address: [address] Performed By: #### 5 8410-2 ####[facility] [id number] [address] MCH (RBC) [Entitic mass] 26.8 pg Normal 26.0-34.0 [facility] Comment on above: Order Comment: Speci men Type: BLOOD SPECIMENOrdering Facility: [facility] Address: [address] Performed By: #### 5 8410-2 ####[facility] [id number] [address] MCHC (RBC) [Mass/Vol] 32.0 g/dL Normal 30.5-36.0 [facility] Comment on above: Order Comment: Speci men Type: BLOOD SPECIMENOrdering Facility: [facility] Address: [address] [place], [place] [address] Performed By: #### 5 8410-2 ####[facility] [id number] [address] STATES [facility] MCV (RBC) [Entitic vol] 83.8 fL Normal 80.0-100.0 [facility] Comment on above: Order Comment: Speci men Type: BLOOD SPECIMENOrdering Facility: [facility] Address: [address] [place], [place] [address] Performed By: #### 5 8410-2 ####[facility] [id number] [address] Nucleated RBC (Bld) [#/Vol] 10*3/uL Normal <0.01 [facility] Comment on above: Order Comment: Speci men Type: BLOOD SPECIMENOrdering Facility: [facility] Address: [address] [place], [place] [address] Performed By: #### 5 8410-2 ####[facility] LABCLIA [id number] [place] [address] [place] Platelet mean volume (Bld) [Entitic vol] 10.3 fL Normal 9.0-12.7 [facility] Comment on above: Order Comment: Speci men Type: BLOOD SPECIMENOrdering Facility: [facility] Address: [address] [place], [place] [address] Performed By: #### 5 8410-2 ####[facility] LABCLIA [id number] [place] [address] [place] Platelets (Bld) [#/Vol] 271 10*3/uL Normal 150-400 [facility] Comment on above: Order Comment: Speci men Type: BLOOD SPECIMENOrdering Facility: [facility] Address: [address] [place], [place] [address] Performed By: #### 5 8410-2 ####[facility] [id number] [place] [address] [place] RBC (Bld) [#/Vol] 3.28 10*6/uL Low 3.90-5.20 [facility] Comment on above: Order Comment: Speci men Type: BLOOD SPECIMENOrdering Facility: [facility] Address: [address] [place], [place] [address] Performed By: #### 5 8410-2 ####[facility] [id number] [place] [address] [place] WBC (Bld) [#/Vol] 6.59 10*3/uL Normal 3.70-11.00 [facility] Comment on above: Order Comment: Speci men Type: BLOOD SPECIMENOrdering Facility: [facility] Address: [address] [place], [place] [address] Performed By: #### 5 8410-2 ####[facility] LABCLIA [id number] [place] [address] [place] CONSULTon 03-05-2023 CONSULT Normal [facility] CONSULT PROGon 03-05-2023 CONSULT PROG Normal [facility] CONSULT PROG Normal [facility] CONSULT PROG Normal [facility] CONSULT PROG Normal [facility] IR CENTRAL LINE REMOVALon IR CENTRAL LINE REMOVAL Normal [facility] Magnesium SerPl-mCncon 03-05 Magnesium [Mass/Vol] 2.4 mg/dL High 1.7-2.3 [facility] Comment on above: Order Comment: Speci men Type: BLOOD SPECIMENOrdering Facility: [facility] Address: [address] [place] [address] Performed By: #### 2 4321-2, 25937-3, 4498-2, 2777-1, 4485-9 ####[facility] LABCLIA [id number] [place] [address] [place] Phosphate SerPl-mCncon 03-05 Phosphate [Mass/Vol] 8.4 mg/dL High 2.7-4.8 [facility] Comment on above: Order Comment: Speci men Type: BLOOD SPECIMENOrdering Facility: [facility] Address: [address] [place] [address] Performed By: #### 2 4321-2, 91363-7, 4498-2, 2777-1, 0245-9 ####[facility] LABCLIA [id number] [place] [address] [place] Prot/Creat Uron 03-05-2023 Protein/Creatinine (U) [Mass ratio] 3.74 mg/mg High <0.15 [facility] Comment on above: Order Comment: Speci men Type: URINE SPECIMENOrdering Facility: [facility] Address: [address] [place], [place] [address] Result Comment: Adul t Proteinuria Categories:<0.15 mg/mg is considered normal to mildly increased0.15 - 0.50 mg/mg is considered moderately increased>0.50 mg/mg is considered severely increasedKDIGO. (2013). KDIGO 2012 Clinical Practice Guideline for the Evaluation and Management of Chronic Kidney Disease. Official Journal of the International Society of Nephrology, 3(1), 1-150. Performed By: #### 2 890-2 ####[facility] LABCLIA [id number] [place] [address] [place] Protein/Creatinine (U) [Mass ratio]on 03-05-2023 Creatinine (U) [Mass/Vol] 15.5 mg/dL Low 20.0-300.0 [facility] Comment on above: Order Comment: Speci men Type: URINE SPECIMENOrdering Facility: [facility] Address: [address] [place] [address] Performed By: #### 2 890-2 ####[facility] [id number] [address] [place] Protein (U) [Mass/Vol] 58 mg/dL High 0-20 [facility] Comment on above: Order Comment: Speci men Type: URINE SPECIMENOrdering Facility: [facility] Address: [address] [place] [address] Performed By: #### 2 890-2 ####[facility] [id number] [address] [place] Vancomycin Kelayres SerPl-mCncon 03-05-2023 Vancomycin random [Mass/Vol] 32.2 ug/mL High 10.0-20.0 [facility] Comment on above: Order Comment: Speci men Type: BLOOD SPECIMENOrdering Facility: [facility] Address: [address] [place] [address] Result Comment: Refe rence ranges and high/low indicator flags are provided as general guidelines only. The treating physician must determine appropriate target levels/dosing based on the specific clinical situation. Performed By: #### 4 091-5 ####[facility] LABCLIA [id number] [place] [address] [place] Basic metabolic 2000 panelon 03-04-2023 Anion gap [Moles/Vol] 18 mmol/L Normal 9-18 [facility] Comment on above: Order Comment: Speci men Type: BLOOD SPECIMENOrdering Facility: [facility] Address: [address] [place] [address] Performed By: #### 2 4321-2, 99735-4 ####[facility] LABCLIA [id number] [place] [address] [place] Calcium [Mass/Vol] 9.4 mg/dL Normal 8.5-10.[address] [facility] Comment on above: Order Comment: Speci men Type: BLOOD SPECIMENOrdering Facility: [facility] Address: [address] [place] [address] Performed By: #### 2 4321-2, 88174-4 ####[facility] LABCLIA [id number] [place] [address] [place] Chloride [Moles/Vol] 90 mmol/L Low 97-105 [facility] Comment on above: Order Comment: Speci men Type: BLOOD SPECIMENOrdering Facility: [facility] Address: [address] [place] [address] Performed By: #### 2 4321-2, 34935-6 ####[facility] LABCLIA [id number] [place] [address] [place] CO2 [Moles/Vol] 22 mmol/L Normal 22-30 [facility] Comment on above: Order Comment: Speci men Type: BLOOD SPECIMENOrdering Facility: [facility] Address: [address] [place], [place] [address] Performed By: #### 2 4321-2, 88503-5 ####[facility] LABCLIA [id number] [place] [address] [place] Creatinine [Mass/Vol] 2.58 mg/dL High 0.58-0.96 [facility] Comment on above: Order Comment: Matti bernal Type: BLOOD SPECIMENOrdering Facility: [facility] Address: [address] [place] [phone] Performed By: #### 2 4321-2, 81572-5 ####[facility] LABCLIA [id number] [place] [address] [place] ESTIMATED GLOMERULAR FILTRATION RATE 21 mL/min/1.73m??? Low >=60 [facility] Comment on above: Order Comment: Matti bernal Type: BLOOD SPECIMENOrdering Facility: [facility] Address: [address] [place] [address] Result Comment: Karen mated Glomerular Filtration Rate (eGFR) is calculated using the 2020 CKD-EPI creatinine equation. This equation utilizes serum creatinine, sex, and age as parameters. The creatinine assay has traceable calibration to isotope dilution-mass spectrometry. Refer to KDIGO guidelines for clinical interpretation. In patients with unstable renal function, e.g. those with acute kidney injury, the eGFR may not accurately reflect actual GFR. Performed By: #### 2 4321-2, 60748-7 ####[facility] LABCLIA [id number] [place] [address] [place] Glucose [Mass/Vol] 147 mg/dL High 74-[address] [facility] Comment on above: Order Comment: Matti bernal Type: BLOOD SPECIMENOrdering Facility: [facility] Address: [address] [place] [address] Result Comment: The [place] Diabetes Association (ADA) provides guidance for cutoff values for fasting glucose and random glucose. The ADA defines fasting as no caloric intake for at least 8 hours. Fasting plasma glucose results between 100 to 125 mg/dL indicate increased risk for diabetes (prediabetes).Fasting plasma glucose results greater than or equal to 126 mg/dL meet the criteria for diagnosis of diabetes. In the absence of unequivocal hyperglycemia, results should be confirmed by repeat testing. In a patient with classic symptoms of hyperglycemia or hyperglycemic crisis, random plasma glucose results greater than or equal to 200 mg/dL meet the criteria for diagnosis of diabetes.Reference: Standards of Medical Care in Diabetes 2016, [place] [employer] Association. Diabetes Care. 2016.39(Suppl 1). Performed By: #### 2 4321-2, 15077-5 ####[facility]IA [id number] [place] [address] [place] Potassium [Moles/Vol] 4.3 mmol/L Normal 3.7-5.1 [facility] Comment on above: Order Comment: Speci men Type: BLOOD SPECIMENOrdering Facility: [facility] Address: [address] [place] [address] Performed By: #### 2 4321-2, 91991-5 ####[facility] [id number] [place] [address] [place] Sodium [Moles/Vol] 130 mmol/L Low 136-[address] [facility] Comment on above: Order Comment: Speci men Type: BLOOD SPECIMENOrdering Facility: [facility] Address: [address] [place] [address] Performed By: #### 2 4321-2, 45341-4 ####[facility] [id number] [place] [address] [place] Urea nitrogen [Mass/Vol] 34 mg/dL High 7-21 [facility] Comment on above: Order Comment: Speci men Type: BLOOD SPECIMENOrdering Facility: [facility] Address: [address] [place] [address] Performed By: #### 2 4321-2, 11198-9 ####[facility] [id number] [place] [address] [place] C diff Tox gens Stl Ql SHAKA+p bereelatrice 03-04-2023 C. difficile toxin genes SHAKA+probe Ql (Stl) Negative Normal Negative for C. difficile toxin by PCR [facility] Comment on above: Order Comment: Speci men Type: STOOL SPECIMENOrdering Facility: [facility] Address: [address] [place] [address] Performed By: #### 5 4067-4 ####[facility]IA [id number] [place] [address] [place] CBC panel Auto (Bld)on 03-04 Erythrocyte distribution width (RBC) [Ratio] 14.8 % Normal 11.5-15.0 [facility] Comment on above: Order Comment: Speci men Type: BLOOD SPECIMENOrdering Facility: [facility] Address: [address] [place] [address] Performed By: #### 4 091-5, 84647-8 ####[facility] [id number] [address] [place] Hematocrit (Bld) [Volume fraction] 34.9 % Low 36.0-46.0 [facility] Comment on above: Order Comment: Speci men Type: BLOOD SPECIMENOrdering Facility: [facility] Address: [address] [place] [address] Performed By: #### 4 091-5, 75534-0 ####[facility] [id number] [address] [place] Hemoglobin (Bld) [Mass/Vol] 11.2 g/dL Low 11.5-15.5 [facility] Comment on above: Order Comment: Speci men Type: BLOOD SPECIMENOrdering Facility: [facility] Address: [address] Performed By: #### 4 091-5, 88762-8 ####[facility] [id number] [place] [address] [place] MCH (RBC) [Entitic mass] 26.1 pg Normal 26.0-34.0 [facility] Comment on above: Order Comment: Speci men Type: BLOOD SPECIMENOrdering Facility: [facility] Address: [address] Performed By: #### 4 091-5, 87114-3 ####[facility] LABCLIA [id number] [address] [place] MCHC (RBC) [Mass/Vol] 32.1 g/dL Normal 30.5-36.0 [facility] Comment on above: Order Comment: Speci men Type: BLOOD SPECIMENOrdering Facility: [facility] Address: [address] [place], [place] [address] Performed By: #### 4 091-5, 11639-3 ####[facility] [id number] [address] [place] MCV (RBC) [Entitic vol] 81.4 fL Normal 80.0-100.0 [facility] Comment on above: Order Comment: Speci men Type: BLOOD SPECIMENOrdering Facility: [facility] Address: [address] [place], [place] [address] Performed By: #### 4 091-5, 77797-9 ####[facility] [id number] [address] [place] Nucleated RBC (Bld) [#/Vol] 10*3/uL Normal <0.01 [facility] Comment on above: Order Comment: Speci men Type: BLOOD SPECIMENOrdering Facility: [facility] Address: [address] [place], [place] [address] Performed By: #### 4 091-5, 12085-9 ####[facility] [id number] [place] [address] [place] Platelet mean volume (Bld) [Entitic vol] 10.8 fL Normal 9.0-12.7 [facility] Comment on above: Order Comment: Speci men Type: BLOOD SPECIMENOrdering Facility: [facility] Address: [address] [place], [place] [address] Performed By: #### 4 091-5, 72449-3 ####[facility] LABCLIA [id number] [place] [address] [place] Platelets (Bld) [#/Vol] 406 10*3/uL High 150-400 [facility] Comment on above: Order Comment: Speci men Type: BLOOD SPECIMENOrdering Facility: [facility] Address: [address] [place], [place] [address] Performed By: #### 4 091-5, 98607-9 ####[facility] LABCLIA [id number] [place] [address] [place] RBC (Bld) [#/Vol] 4.29 10*6/uL Normal 3.90-5.20 [facility] Comment on above: Order Comment: Speci men Type: BLOOD SPECIMENOrdering Facility: [facility] Address: [address] [place], [place] [address] Performed By: #### 4 091-5, 31931-0 ####[facility] LABCLIA [id number] [place] [address] [place] WBC (Bld) [#/Vol] 8.14 10*3/uL Normal 3.70-11.00 [facility] Comment on above: Order Comment: Speci men Type: BLOOD SPECIMENOrdering Facility: [facility] Address: [address] [place], [place] [address] Performed By: #### 4 091-5, 62380-5 ####[facility]CLIA [id number] [place] [address] [place] CONSULT PROGon 03-04-2023 CONSULT PROG Normal [facility] CONSULT PROG Normal [facility] CONSULT PROG Normal [facility] CRP SerPl-mCncon 03-04-2023 CRP [Mass/Vol] 0.5 mg/dL Normal <0.9 [facility] Comment on above: Order Comment: Speci men Type: BLOOD SPECIMENOrdering Facility: [facility] Address: [address] [facility] [place] [address] Performed By: #### 1 239, 1988-02, , 2776-10 ####[facility] LABCLIA [id number] [place] [address] [place] CHEST WO IVCONon 03-04-20 CT CHEST WO IVCON Invalid Interpretation Code [facility] CULTURE BLOODon 03-04-2023 Microscopic examination of blood, culture Culture Observations: Aerobic bottle positive 03/02; BCID= Staphylococcus spp. Isolate 1 Staphylococcus hominis Growth of ORGANISM 1 Staphylococcus hominis ANTIBIOTIC M.I.C RX STATUS Beta-Lactamase Neg POS F Cefoxitin Screen Neg NEG F Benzylpenicillin 0.25 R F Oxacillin <=0.25 S F Gentamicin <=0.5 S F Ciprofloxacin <=0.5 S F Levofloxacin <=0.12 S F Inducible Clindamycin Resistance Neg NEG F Erythromycin <=0.25 S F Clindamycin <=0.25 S F Quinupristin/Dalfopristin <=0.25 S F Linezolid 1 S F Vancomycin <=0.5 S F Tetracycline <=1 S F Rifampicin <=0.5 S F Trimethoprim/Sulfamethoxaz ole <=10 S F Normal [facility] Comment on above: Performed By: #### B LDCX1 #### [facility] [address] [place] [address] Dr. Laura Bright Hepatic function 2000 panelo n 03-04-2023 Albumin [Mass/Vol] 4.0 g/dL Normal 3.9-4.[address] [facility] Comment on above: Order Comment: Speci men Type: BLOOD SPECIMENOrdering Facility: [facility] Address: [place] [address] Performed By: #### 1 91239, 1988-02, , 2776-10 ####[facility]CLIA [id number] [place] [address] [place] ALP [Catalytic activity/Vol] 177 U/L High 34-123 [facility] Comment on above: Order Comment: Speci men Type: BLOOD SPECIMENOrdering Facility: [facility] Address: [address] Performed By: #### 1 9123-06, 1988-02, , 2776-10 ####[facility]CL[facility] [id number] [place] [address] [place] ALT [Catalytic activity/Vol] 61 U/L High 7-38 [facility] Comment on above: Order Comment: Speci men Type: BLOOD SPECIMENOrdering Facility: [facility] Address: [address] [place], [place] [address] Performed By: #### 1 9123-06, 1988-02, , 2776-10 ####[facility] [id number] [place] [address] [place] AST [Catalytic activity/Vol] 40 U/L High 13-35 [facility] Comment on above: Order Comment: Speci men Type: BLOOD SPECIMENOrdering Facility: [facility] Address: [address] [place] [address] Performed By: #### 1 9123-06, 1988-02, , 2776-10 ####[facility] [id number] [place] [address] [place] Bilirubin [Mass/Vol] 1.2 mg/dL Normal 0.2-1.3 [facility] Comment on above: Order Comment: Speci men Type: BLOOD SPECIMENOrdering Facility: [facility] Address: [address] [place], [place] [address] Performed By: #### 1 9, 1988-02, , 2776-10 ####[facility]CL[facility] [id number] [place] [id number] [place] Bilirubin.conjugated [Mass/Vol] 0.3 mg/dL High <0.2 [facility] Comment on above: Order Comment: Speci men Type: BLOOD SPECIMENOrdering Facility: [facility] Address: [address] [place] [address] Performed By: #### 1 9123-06, 1988-02, , 2776-10 ####[facility]CL[facility] [id number] [place] [address] [place] Protein [Mass/Vol] 8.0 g/dL Normal 6.3-8.[address] [facility] Comment on above: Order Comment: Speci men Type: BLOOD SPECIMENOrdering Facility: [facility] Address: [address] [place] [address] Performed By: #### 1 9123-06, 1988-02, , 2776-10 ####[facility] [id number] [place] [address] [place] Magnesium SerPl-mCncon 03-04 Magnesium [Mass/Vol] 2.2 mg/dL Normal 1.7-2.3 [facility] Comment on above: Order Comment: Speci men Type: BLOOD SPECIMENOrdering Facility: [facility] Address: [address] [place] [address] Performed By: #### 2 4362-6, 08092-4 ####[facility]CL[facility] [id number] [place] [address] [place] Magnesium [Mass/Vol] 2.3 mg/dL Normal 1.7-2.3 [facility] Comment on above: Order Comment: Speci men Type: BLOOD SPECIMENOrdering Facility: [facility] Address: [address] [place], [place] [address] Performed By: #### 1 9123-06, 1988-02, , 2776-10 ####[facility]CL[facility] [id number] [place] [address] [place] Phosphate SerPl-mCncon 03-04 Phosphate [Mass/Vol] 8.2 mg/dL High 2.7-4.8 [facility] Comment on above: Order Comment: Speci men Type: BLOOD SPECIMENOrdering Facility: [facility] Address: [address] [place] [address] Performed By: #### 1 9123-9, 1987-5, 78350-8, 2777-1 ####[facility]CL[facility] [id number] [place] [address] [place] Prealb SerPl-ncon 03-04-20 Prealbumin [Mass/Vol] 30 mg/dL Normal 17-36 [facility] Comment on above: Order Comment: Speci men Type: BLOOD SPECIMENOrdering Facility: [facility] Address: [address] [place] [address] Performed By: #### 2 4321-2, 38029-9 ####[facility] LABCLIA [id number] [place] [address] [place] Renal function 2000 panelon 03-04-2023 Albumin [Mass/Vol] 3.5 g/dL Low 3.9-4.[address] [facility] Comment on above: Order Comment: Speci men Type: BLOOD SPECIMENOrdering Facility: [facility] Address: [address] [place] [address] Performed By: #### 2 4362-6, 06755-4 ####[facility] LABCLIA [id number] [place] [address] [place] Anion gap [Moles/Vol] 15 mmol/L Normal 9-18 [facility] Comment on above: Order Comment: Speci men Type: BLOOD SPECIMENOrdering Facility: [facility] Address: [address] [place] [address] Performed By: #### 2 4362-6, ####[facility] LABCLIA [id number] [place] [address] [place] Calcium [Mass/Vol] 8.4 mg/dL Low 8.5-10.[address] [facility] Comment on above: Order Comment: Speci men Type: BLOOD SPECIMENOrdering Facility: [facility] Address: [address] [place], [place] [address] Performed By: #### 2 436-6, ####[facility] LABCLIA [id number] [place] [address] [place] Chloride [Moles/Vol] 96 mmol/L Low 97-105 [facility] Comment on above: Order Comment: Speci men Type: BLOOD SPECIMENOrdering Facility: [facility] Address: [address] [place] [address] Performed By: #### 2 4366, ####[facility] LABCLIA [id number] [place] [address] [place] CO2 [Moles/Vol] 22 mmol/L Normal 22-30 [facility] Comment on above: Order Comment: Speci men Type: BLOOD SPECIMENOrdering Facility: [facility] Address: [address] [place], [place] [address] Performed By: #### 2 43611-14, ####[facility] LABCLIA [id number] [place] [address] [place] Creatinine [Mass/Vol] 2.90 mg/dL High 0.58-0.96 [facility] Comment on above: Order Comment: Speci men Type: BLOOD SPECIMENOrdering Facility: [facility] Address: [address] [place], [place] [address] Performed By: #### 2 43611-14, ####[facility] LABCLIA [id number] [place] [address] [place] ESTIMATED GLOMERULAR FILTRATION RATE 18 mL/min/1.73m??? Low >=60 [facility] Comment on above: Order Comment: Matti bernal Type: BLOOD SPECIMENOrdering Facility: [facility] Address: [address] [phone] Result Comment: Karen mated Glomerular Filtration Rate (eGFR) is calculated using the 2020 CKD-EPI creatinine equation. This equation utilizes serum creatinine, sex, and age as parameters. The creatinine assay has traceable calibration to isotope dilution-mass spectrometry. Refer to KDIGO guidelines for clinical interpretation. In patients with unstable renal function, e.g. those with acute kidney injury, the eGFR may not accurately reflect actual GFR. Performed By: #### 2 4362-6, ####[facility] [id number] [place] [address] [place] Glucose [Mass/Vol] 128 mg/dL High 74-[address] [facility] Comment on above: Order Comment: Matti bernal Type: BLOOD SPECIMENOrdering Facility: [facility] Address: [address] [place] [address] Result Comment: The [place] Diabetes [employer] (ADA) provides guidance for cutoff values for fasting glucose and random glucose. The ADA defines fasting as no caloric intake for at least 8 hours. Fasting plasma glucose results between 100 to 125 mg/dL indicate increased risk for diabetes (prediabetes).Fasting plasma glucose results greater than or equal to 126 mg/dL meet the criteria for diagnosis of diabetes. In the absence of unequivocal hyperglycemia, results should be confirmed by repeat testing. In a patient with classic symptoms of hyperglycemia or hyperglycemic crisis, random plasma glucose results greater than or equal to 200 mg/dL meet the criteria for diagnosis of diabetes.Reference: Standards of Medical Care in Diabetes 2016, [place] [employer]. Diabetes Care. 2016.39(Suppl 1). Performed By: #### 2 4362-6, ####[facility] LABIA [id number] [place] [id number] [place] Phosphate [Mass/Vol] 6.8 mg/dL High 2.7-4.8 [facility] Comment on above: Order Comment: Matti bernal Type: BLOOD SPECIMENOrdering Facility: [facility] Address: [address] [phone] Performed By: #### 2 4362-6, ####[facility] LABIA [id number] [place] [address] [place] Potassium [Moles/Vol] 3.7 mmol/L Normal 3.7-5.1 [facility] Comment on above: Order Comment: Speci men Type: BLOOD SPECIMENOrdering Facility: [facility] Address: [address] [place], [place] [address] Performed By: #### 2 4362-6, ####[facility] LABIA [id number] [place] [address] [place] Sodium [Moles/Vol] 133 mmol/L Low 136-[address] [facility] Comment on above: Order Comment: Speci men Type: BLOOD SPECIMENOrdering Facility: [facility] Address: [address] [place] [address] Performed By: #### 2 4362-6, ####[facility] LABIA [id number] [place] [address] [place] Urea nitrogen [Mass/Vol] 37 mg/dL High 7-21 [facility] Comment on above: Order Comment: Speci men Type: BLOOD SPECIMENOrdering Facility: [facility] Address: [address] [place], [place] [address] Performed By: #### 2 4362-6, ####[facility] LABIA [id number] [place] [id number] [place] US KIDNEY/BLADDERon 03-04-20 US KIDNEY/BLADDER Normal [facility] Urinalysis complete panel (U )on 03-04-2023 Bilirubin Ql (U) Negative Normal Negative [facility] Comment on above: Order Comment: Speci men Type: URINE SPECIMENOrdering Facility: [facility] Address: [address] [place], [place] [phone] Performed By: #### 2 4356-8 ####[facility] LABCLIA [id number] [place] [address] [place] Clarity (Unsp spec) Turbid Abnormal Clear Kar [facility] Comment on above: Order Comment: Speci men Type: URINE SPECIMENOrdering Facility: [facility] Address: [address] [place], [place] [address] Performed By: #### 2 4356-8 ####[facility] LABCLIA [id number] [place] [address] [place] Color (U) Yellow Normal Yellow [facility] Comment on above: Order Comment: Speci men Type: URINE SPECIMENOrdering Facility: [facility] Address: [address] [place] [address] Performed By: #### 2 4356-8 ####[facility] LABIA [id number] [place] [address] [place] Epithelial cells LM.HPF (Urine sed) [#/Area] Few Normal [facility] Comment on above: Order Comment: Speci men Type: URINE SPECIMENOrdering Facility: [facility] Address: [address] [place], [place] [address] Performed By: #### 2 4356-8 ####[facility] LABCLIA [id number] [place] [address] [place] Glucose Test strip (U) [Mass/Vol] Trace Normal Trace, Negative [facility] Comment on above: Order Comment: Speci men Type: URINE SPECIMENOrdering Facility: [facility] Address: [address] [place], [place] [address] Performed By: #### 2 4356-8 ####[facility] LABCLIA [id number] [place] [address] [place] Hemoglobin Ql (U) Negative Normal Negative, Trace [facility] Comment on above: Order Comment: Speci men Type: URINE SPECIMENOrdering Facility: [facility] Address: [address] [place] [address] Performed By: #### 2 4356-8 ####[facility] LABCLIA [id number] [address] [place] Ketones Ql (U) Negative Normal Trace, Negative [facility] Comment on above: Order Comment: Speci men Type: URINE SPECIMENOrdering Facility: [facility] Address: [address] [place] [address] Performed By: #### 2 4356-8 ####[facility] LABIA [id number] [place] [address] [place] Leukocyte esterase Test strip Ql (U) 25 Rafael/uL Normal Negative, 25 Rafael/uL [facility] Comment on above: Order Comment: Speci men Type: URINE SPECIMENOrdering Facility: [facility] Address: [address] [place] [address] Performed By: #### 2 4356-8 ####[facility] LABIA [id number] [place] [address] [place] Nitrite Ql (U) Negative Normal Negative [facility] Comment on above: Order Comment: Speci men Type: URINE SPECIMENOrdering Facility: [facility] Address: [address] [place], [place] [address] Performed By: #### 2 4356-8 ####[facility] LABIA [id number] [place] [address] [place] pH (U) 5.5 [pH] Normal 5.0-8.0 [facility] Comment on above: Order Comment: Speci men Type: URINE SPECIMENOrdering Facility: [facility] Address: [address] [place], [place] [address] Performed By: #### 2 4356-8 ####[facility] LABCLIA [id number] [address] [place] Protein (U) [Mass/Vol] 1+ Abnormal Trace, Negative [facility] Comment on above: Order Comment: Speci men Type: URINE SPECIMENOrdering Facility: [facility] Address: [address] [place] [address] Performed By: #### 2 4356-8 ####[facility] LABCLIA [id number] [place] [address] [place] RBC LM.HPF (Urine sed) [#/Area] 0-3 /HPF Normal 0-3 /HPF [facility] Comment on above: Order Comment: Speci men Type: URINE SPECIMENOrdering Facility: [facility] Address: [address] [place] [address] Performed By: #### 2 4356-8 ####[facility] LABCLIA [id number] [address] [place] Specific gravity (U) [Rel density] 1.023 Normal 1.005-1.03 0 [facility] Comment on above: Order Comment: Speci men Type: URINE SPECIMENOrdering Facility: [facility] Address: [address] [place] [address] Performed By: #### 2 4356-8 ####[facility] LABIA [id number] [address] Urobilinogen Ql (U) Negative Normal Negative [facility] Comment on above: Order Comment: Speci men Type: URINE SPECIMENOrdering Facility: [facility] Address: [address] [place], [place] [address] Performed By: #### 2 4356-8 ####[facility] LABCLIA [id number] [place] [address] [place] WBC LM.HPF (Urine sed) [#/Area] 0-5 /HPF Normal 0-5 /HPF [facility] Comment on above: Order Comment: Speci men Type: URINE SPECIMENOrdering Facility: [facility] Address: [address] Performed By: #### 2 4356-8 ####[facility] LABCLIA [id number] [place] [address] [place] Vancomycin [facility]-ncon 03-04-2023 Vancomycin random [Mass/Vol] 48.0 ug/mL High 10.0-20.0 [facility] Comment on above: Order Comment: Speci men Type: BLOOD SPECIMENOrdering Facility: [facility] Address: [address] [address] Result Comment: Refe rence ranges and high/low indicator flags are provided as general guidelines only. The treating physician must determine appropriate target levels/dosing based on the specific clinical situation. Performed By: #### 4 091-5, 49588-8 ####[facility] LABCLIA [id number] [place] [address] [place] ALLIED HEALTHon 03-03-2023 ALLIED HEALTH Normal [facility] Basic metabolic 2000 panelon 03-03-2023 Anion gap [Moles/Vol] 19 mmol/L High 9-18 [facility] Comment on above: Order Comment: Speci men Type: BLOOD SPECIMENOrdering Facility: [facility] Address: [address] [address] Performed By: #### 2 4321-2 ####[facility] LABCLIA [id number] [place] [address] [place] Calcium [Mass/Vol] 11.0 mg/dL High 8.5-10.[address] [facility] Comment on above: Order Comment: Speci men Type: BLOOD SPECIMENOrdering Facility: [facility] Address: [address] Performed By: #### 2 4321-2 ####[facility] LABCLIA [id number] [place] [address] [place] Chloride [Moles/Vol] 96 mmol/L Low 97-105 [facility] Comment on above: Order Comment: Speci men Type: BLOOD SPECIMENOrdering Facility: [facility] Address: [address] [address] Performed By: #### 2 4321-2 ####[facility] LABCLIA [id number] [place] [address] [place] CO2 [Moles/Vol] 22 mmol/L Normal 22-30 [facility] Comment on above: Order Comment: Speci men Type: BLOOD SPECIMENOrdering Facility: [facility] Address: [address] [address] Performed By: #### 2 4321-2 ####[facility] LABCLIA [id number] [address] [place] OF [facility] Creatinine [Mass/Vol] 1.22 mg/dL High 0.58-0.96 [facility] Comment on above: Order Comment: Speci men Type: BLOOD SPECIMENOrdering Facility: [facility] Address: [address] [address] Performed By: #### 2 4321-2 ####[facility] LABCLIA [id number] [address] ESTIMATED GLOMERULAR FILTRATION RATE 52 mL/min/1.73m??? Low >=60 [facility] Comment on above: Order Comment: Speci men Type: BLOOD SPECIMENOrdering Facility: [facility] Address: [address] [address] Result Comment: Karen mated Glomerular Filtration Rate (eGFR) is calculated using the 2020 CKD-EPI creatinine equation. This equation utilizes serum creatinine, sex, and age as parameters. The creatinine assay has traceable calibration to isotope dilution-mass spectrometry. Refer to KDIGO guidelines for clinical interpretation. In patients with unstable renal function, e.g. those with acute kidney injury, the eGFR may not accurately reflect actual GFR. Performed By: #### 2 4321-2 ####[facility] LABCLIA [id number] [place] [address] [place] Glucose [Mass/Vol] 103 mg/dL High 74-[address] [facility] Comment on above: Order Comment: Speci men Type: BLOOD SPECIMENOrdering Facility: [facility] Address: [address] [address] Result Comment: The [place] Diabetes Association (ADA) provides guidance for cutoff values for fasting glucose and random glucose. The ADA defines fasting as no caloric intake for at least 8 hours. Fasting plasma glucose results between 100 to 125 mg/dL indicate increased risk for diabetes (prediabetes).Fasting plasma glucose results greater than or equal to 126 mg/dL meet the criteria for diagnosis of diabetes. In the absence of unequivocal hyperglycemia, results should be confirmed by repeat testing. In a patient with classic symptoms of hyperglycemia or hyperglycemic crisis, random plasma glucose results greater than or equal to 200 mg/dL meet the criteria for diagnosis of diabetes.Reference: Standards of Medical Care in Diabetes 2016, [place] [employer]. Diabetes Care. 2016.39(Suppl 1). Performed By: #### 2 4321-2 ####[facility] LABIA [id number] [place] [address] [place] Potassium [Moles/Vol] 4.3 mmol/L Normal 3.7-5.1 [facility] Comment on above: Order Comment: Speci men Type: BLOOD SPECIMENOrdering Facility: [facility] Address: [address] [address] Performed By: #### 2 4321-2 ####[facility] LABIA [id number] [place] [address] [place] Sodium [Moles/Vol] 137 mmol/L Normal 136-[address] [facility] Comment on above: Order Comment: Speci men Type: BLOOD SPECIMENOrdering Facility: [facility] Address: [address] [address] Performed By: #### 2 4321-2 ####[facility] [id number] [place] [address] Urea nitrogen [Mass/Vol] 28 mg/dL High 7-21 [facility] Comment on above: Order Comment: Speci men Type: BLOOD SPECIMENOrdering Facility: [facility] Address: [address] [place] [address] Performed By: #### 2 4321-2 ####[facility] LABCLIA [id number] [address] [place] CASE MGT INIT ASSESon 2022 CASE MGT INIT ASSES Normal [facility] CBC W Auto Diff Bldon 2022 Nucleated RBC (Bld) [#/Vol] 10*3/uL Normal <0.01 [facility] Comment on above: Order Comment: Speci men Type: BLOOD SPECIMENOrdering Facility: [facility] Address: [address] [place], [place] [address] Performed By: #### 5 7021-8 ####[facility] LABCLIA [id number] [address] OF [facility] Performed By: #### 5 8410-2 ####[facility] LABCLIA [id number] [address] [place] CBC W Auto Differential pane l (Bld)on 03-03-2023 Basophils (Bld) [#/Vol] 0.09 10*3/uL Normal <0.11 [facility] Comment on above: Order Comment: Speci men Type: BLOOD SPECIMENOrdering Facility: [facility] Address: [address] [place], [place] [address] Performed By: #### 5 7021-8 ####[facility] LABCLIA [id number] [address] [place] Basophils/100 WBC (Bld) 1.0 % Normal [facility] Comment on above: Order Comment: Speci men Type: BLOOD SPECIMENOrdering Facility: [facility] Address: [address] [place], [place] [address] Performed By: #### 5 7021-8 ####[facility] LABCLIA [id number] [place] [address] [place] Differential cell count method Nom (Bld) Auto Normal [facility] Comment on above: Order Comment: Speci men Type: BLOOD SPECIMENOrdering Facility: [facility] Address: [address] [place], [place] [address] Performed By: #### 5 7021-8 ####[facility] LABCLIA [id number] [place] [address] [place] Eosinophils (Bld) [#/Vol] 0.26 10*3/uL Normal <0.46 [facility] Comment on above: Order Comment: Speci men Type: BLOOD SPECIMENOrdering Facility: [facility] Address: [address] [place], [place] [address] Performed By: #### 5 7021-8 ####[facility] LABCLIA [id number] [place] [address] [place] Eosinophils/100 WBC (Bld) 2.8 % Normal [facility] Comment on above: Order Comment: Speci men Type: BLOOD SPECIMENOrdering Facility: [facility] Address: [address] [place], [place] [address] Performed By: #### 5 7021-8 ####[facility] LABCLIA [id number] [place] [address] [place] Erythrocyte distribution width (RBC) [Ratio] 14.8 % Normal 11.5-15.0 [facility] Comment on above: Order Comment: Speci men Type: BLOOD SPECIMENOrdering Facility: [facility] Address: [address] [place], [place] [address] Performed By: #### 5 7021-8 ####[facility] LABCLIA [id number] [place] [address] [place] Hematocrit (Bld) [Volume fraction] 38.6 % Normal 36.0-46.0 [facility] Comment on above: Order Comment: Speci men Type: BLOOD SPECIMENOrdering Facility: [facility] Address: [address] [place] [address] Performed By: #### 5 7021-8 ####[facility] LABCLIA [id number] [place] [address] [place] Hemoglobin (Bld) [Mass/Vol] 12.5 g/dL Normal 11.5-15.5 [facility] Comment on above: Order Comment: Speci men Type: BLOOD SPECIMENOrdering Facility: [facility] Address: [address] [place] [address] Performed By: #### 5 7021-8 ####[facility] LABCLIA [id number] [place] [address] [place] Immature granulocytes (Bld) [#/Vol] 0.03 10*3/uL Normal <0.10 [facility] Comment on above: Order Comment: Speci men Type: BLOOD SPECIMENOrdering Facility: [facility] Address: [address] [place], [place] [address] Performed By: #### 5 7021-8 ####[facility] LABCLIA [id number] [place] [address] [place] Immature granulocytes/100 WBC (Bld) 0.3 % Normal [facility] Comment on above: Order Comment: Speci men Type: BLOOD SPECIMENOrdering Facility: [facility] Address: [address] [place], [place] [address] Performed By: #### 5 7021-8 ####[facility] LABCLIA [id number] [place] [address] [place] Lymphocytes (Bld) [#/Vol] 2.40 10*3/uL Normal 1.00-4.00 [facility] Comment on above: Order Comment: Speci men Type: BLOOD SPECIMENOrdering Facility: [facility] Address: [address] Performed By: #### 5 7021-8 ####[facility] LABCLIA [id number] [address] [place] Lymphocytes/100 WBC (Bld) 25.6 % Normal [facility] Comment on above: Order Comment: Speci men Type: BLOOD SPECIMENOrdering Facility: [facility] Address: [address] [place], [place] [address] Performed By: #### 5 7021-8 ####[facility] LABCLIA [id number] [place] [address] [place] MCH (RBC) [Entitic mass] 26.3 pg Normal 26.0-34.0 [facility] Comment on above: Order Comment: Speci men Type: BLOOD SPECIMENOrdering Facility: [facility] Address: [address] Performed By: #### 5 7021-8 ####[facility] LABIA [id number] [address] [place] MCHC (RBC) [Mass/Vol] 32.4 g/dL Normal 30.5-36.0 [facility] Comment on above: Order Comment: Speci men Type: BLOOD SPECIMENOrdering Facility: [facility] Address: [address] Performed By: #### 5 7021-8 ####[facility] LABCLIA [id number] [place] [address] [place] MCV (RBC) [Entitic vol] 81.1 fL Normal 80.0-100.0 [facility] Comment on above: Order Comment: Speci men Type: BLOOD SPECIMENOrdering Facility: [facility] Address: [address] [place], [place] [address] Performed By: #### 5 7021-8 ####[facility] LABCLIA [id number] [place] [address] [place] Monocytes (Bld) [#/Vol] 0.81 10*3/uL Normal <0.87 [facility] Comment on above: Order Comment: Speci men Type: BLOOD SPECIMENOrdering Facility: [facility] Address: [address] [place] [address] Performed By: #### 5 7021-8 ####[facility] LABCLIA [id number] [place] [address] [place] Monocytes/100 WBC (Bld) 8.6 % Normal [facility] Comment on above: Order Comment: Speci men Type: BLOOD SPECIMENOrdering Facility: [facility] Address: [address] [place] [address] Performed By: #### 5 7021-8 ####[facility] LABCLIA [id number] [place] [address] [place] Neutrophils (Bld) [#/Vol] 5.80 10*3/uL Normal 1.45-7.50 [facility] Comment on above: Order Comment: Speci men Type: BLOOD SPECIMENOrdering Facility: [facility] Address: [address] [place], [place] [address] Performed By: #### 5 7021-8 ####[facility] LABCLIA [id number] [place] [address] [place] Neutrophils/100 WBC (Bld) 61.7 % Normal [facility] Comment on above: Order Comment: Speci men Type: BLOOD SPECIMENOrdering Facility: [facility] Address: [address] [place], [place] [address] Performed By: #### 5 7021-8 ####[facility] LABCLIA [id number] [place] [address] [place] Nucleated RBC/100 WBC (Bld) [Ratio] 0.0 /100 WBC Normal [facility] Comment on above: Order Comment: Speci men Type: BLOOD SPECIMENOrdering Facility: [facility] Address: [address] [place] [address] Performed By: #### 5 7021-8 ####[facility] LABCLIA [id number] [place] [address] [place] Platelet mean volume (Bld) [Entitic vol] 10.6 fL Normal 9.0-12.7 [facility] Comment on above: Order Comment: Speci men Type: BLOOD SPECIMENOrdering Facility: [facility] Address: [address] Performed By: #### 5 7021-8 ####[facility] LABIA [id number] [place] [address] [place] Platelets (Bld) [#/Vol] 462 10*3/uL High 150-400 [facility] Comment on above: Order Comment: Speci men Type: BLOOD SPECIMENOrdering Facility: [facility] Address: [address] [place], [place] [address] Performed By: #### 5 7021-8 ####[facility] LABIA [id number] [place] [address] [place] RBC (Bld) [#/Vol] 4.76 10*6/uL Normal 3.90-5.20 [facility] Comment on above: Order Comment: Speci men Type: BLOOD SPECIMENOrdering Facility: [facility] Address: [address] [place] [address] Performed By: #### 5 7021-8 ####[facility] LABIA [id number] [place] [address] [place] WBC (Bld) [#/Vol] 9.39 10*3/uL Normal 3.70-11.00 [facility] Comment on above: Order Comment: Speci men Type: BLOOD SPECIMENOrdering Facility: [facility] Address: [address] [place], [place] [address] Performed By: #### 5 7021-8 ####[facility] LABCLIA [id number] [address] [place] CBC panel Auto (Bld)on 03-03 Erythrocyte distribution width (RBC) [Ratio] 14.9 % Normal 11.5-15.0 [facility] Comment on above: Order Comment: Speci men Type: BLOOD SPECIMENOrdering Facility: [facility] Address: [address] Performed By: #### 5 8410-2 ####[facility] LABIA [id number] [address] [place] Hematocrit (Bld) [Volume fraction] 38.4 % Normal 36.0-46.0 [facility] Comment on above: Order Comment: Speci men Type: BLOOD SPECIMENOrdering Facility: [facility] Address: [address] Performed By: #### 5 8410-2 ####[facility] LABIA [id number] [address] [place] Hemoglobin (Bld) [Mass/Vol] 12.6 g/dL Normal 11.5-15.5 [facility] Comment on above: Order Comment: Speci men Type: BLOOD SPECIMENOrdering Facility: [facility] Address: [address] [place] [address] Performed By: #### 5 8410-2 ####[facility] LABCLIA [id number] [place] [address] [place] MCH (RBC) [Entitic mass] 26.8 pg Normal 26.0-34.0 [facility] Comment on above: Order Comment: Speci men Type: BLOOD SPECIMENOrdering Facility: [facility] Address: [address] Performed By: #### 5 8410-2 ####[facility] LABCLIA [id number] [place] [address] [place] MCHC (RBC) [Mass/Vol] 32.8 g/dL Normal 30.5-36.0 [facility] Comment on above: Order Comment: Speci men Type: BLOOD SPECIMENOrdering Facility: [facility] Address: [address] [place] [address] Performed By: #### 5 8410-2 ####[facility] LABIA [id number] [place] [address] [place] MCV (RBC) [Entitic vol] 81.5 fL Normal 80.0-100.0 [facility] Comment on above: Order Comment: Speci men Type: BLOOD SPECIMENOrdering Facility: [facility] Address: [address] [place] [address] Performed By: #### 5 8410-2 ####[facility] [id number] [place] [address] [place] Platelet mean volume (Bld) [Entitic vol] 11.2 fL Normal 9.0-12.7 [facility] Comment on above: Order Comment: Speci men Type: BLOOD SPECIMENOrdering Facility: [facility] Address: [address] [place], [place] [address] Performed By: #### 5 8410-2 ####[facility] LABIA [id number] [place] [address] [place] Platelets (Bld) [#/Vol] 439 10*3/uL High 150-400 [facility] Comment on above: Order Comment: Speci men Type: BLOOD SPECIMENOrdering Facility: [facility] Address: [address] [place], [place] [address] Performed By: #### 5 8410-2 ####[facility] LABIA [id number] [place] [address] [place] RBC (Bld) [#/Vol] 4.71 10*6/uL Normal 3.90-5.20 [facility] Comment on above: Order Comment: Speci men Type: BLOOD SPECIMENOrdering Facility: [facility] Address: [address] [place] [address] Performed By: #### 5 8410-2 ####[facility] LABCLIA [id number] [place] [address] [place] WBC (Bld) [#/Vol] 9.18 10*3/uL Normal 3.70-11.00 [facility] Comment on above: Order Comment: Speci men Type: BLOOD SPECIMENOrdering Facility: [facility] Address: [address] [place] [address] Performed By: #### 5 8410-2 ####[facility] LABCLIA [id number] [place] [address] [place] CONSULTon 03-03-2023 CONSULT Normal [facility] CONSULT Normal [facility] CONSULT PROGon 03-03-2023 CONSULT PROG Normal [facility] CONSULT PROG Normal [facility] HISTORY PHYSICALon HISTORY PHYSICAL Normal [facility] NURSING PROGon 03-03-2023 NURSING PROG Normal [facility] NURSING PROG Normal [facility] Bacteria Bld Culton 03-02-20 23 Bacteria identified Cx Nom (Bld) Abnormal [facility] Comment on above: Performed By: #### 6 00-7 ####[facility] LABCLIA [id number] [place] [address] [place] Bacteria identified Cx Nom (Bld) CULTURE, BLOOD: No growth 5 days Normal [facility] Comment on above: Performed By: #### 6 00-7 ####[facility] LABCLIA [id number] [place] [address] [place] Bacteria identified Cx Nom (Bld) CULTURE, BLOOD: No growth 5 days Normal [facility] Comment on above: Performed By: #### 6 00-7 ####[facility] LABCLIA [id number] [place] [address] [place] CBC W Auto Differential pane l (Bld)on 03-02-2023 Basophils (Bld) [#/Vol] 0.05 10*3/uL Normal <0.11 [facility] Comment on above: Order Comment: Speci men Type: BLOOD SPECIMENOrdering Facility: [facility] Address: [address] [place] [address] Performed By: #### 5 7021-8 ####[facility] LABCLIA [id number] [place] [address] [place] Basophils/100 WBC (Bld) 0.5 % Normal [facility] Comment on above: Order Comment: Speci men Type: BLOOD SPECIMENOrdering Facility: [facility] Address: [address] [place] [address] Performed By: #### 5 7021-8 ####[facility] LABCLIA [id number] [place] [address] [place] Differential cell count method Nom (Bld) Auto Normal [facility] Comment on above: Order Comment: Speci men Type: BLOOD SPECIMENOrdering Facility: [facility] Address: [address] [place] [address] Performed By: #### 5 7021-8 ####[facility] LABCLIA [id number] [place] [address] [place] Eosinophils (Bld) [#/Vol] 0.20 10*3/uL Normal <0.46 [facility] Comment on above: Order Comment: Speci men Type: BLOOD SPECIMENOrdering Facility: [facility] Address: [address] [place] [address] Performed By: #### 5 7021-8 ####[facility] LABCLIA [id number] [place] [address] [place] Eosinophils/100 WBC (Bld) 1.9 % Normal [facility] Comment on above: Order Comment: Speci men Type: BLOOD SPECIMENOrdering Facility: [facility] Address: [address] [place] [address] Performed By: #### 5 7021-8 ####[facility] LABCLIA [id number] [place] [address] [place] Erythrocyte distribution width (RBC) [Ratio] 14.6 % Normal 11.5-15.0 [facility] Comment on above: Order Comment: Speci men Type: BLOOD SPECIMENOrdering Facility: [facility] Address: [address] [place] [address] Performed By: #### 5 7021-8 ####[facility] LABCLIA [id number] [place] [address] [place] Hematocrit (Bld) [Volume fraction] 34.3 % Low 36.0-46.0 [facility] Comment on above: Order Comment: Speci men Type: BLOOD SPECIMENOrdering Facility: [facility] Address: [address] [place], [place] [address] Performed By: #### 5 7021-8 ####[facility] LABCLIA [id number] [place] [address] [place] Hemoglobin (Bld) [Mass/Vol] 11.0 g/dL Low 11.5-15.5 [facility] Comment on above: Order Comment: Speci men Type: BLOOD SPECIMENOrdering Facility: [facility] Address: [address] [place], [place] [address] Performed By: #### 5 7021-8 ####[facility] LABCLIA [id number] [place] [address] [place] Immature granulocytes (Bld) [#/Vol] 0.03 10*3/uL Normal <0.10 [facility] Comment on above: Order Comment: Speci men Type: BLOOD SPECIMENOrdering Facility: [facility] Address: [address] Performed By: #### 5 7021-8 ####[facility] LABCLIA [id number] [address] Immature granulocytes/100 WBC (Bld) 0.3 % Normal [facility] Comment on above: Order Comment: Speci men Type: BLOOD SPECIMENOrdering Facility: [facility] Address: [address] Performed By: #### 5 7021-8 ####[facility] LABCLIA [id number] [place] [address] [place] Lymphocytes (Bld) [#/Vol] 2.57 10*3/uL Normal 1.00-4.00 [facility] Comment on above: Order Comment: Speci men Type: BLOOD SPECIMENOrdering Facility: [facility] Address: [address] Performed By: #### 5 7021-8 ####[facility] LABCLIA [id number] [address] [place] [facility] Lymphocytes/100 WBC (Bld) 25.0 % Normal [facility] Comment on above: Order Comment: Speci men Type: BLOOD SPECIMENOrdering Facility: [facility] Address: [address] Performed By: #### 5 7021-8 ####[facility] LABCLIA [id number] [place] [address] [place] MCH (RBC) [Entitic mass] 26.4 pg Normal 26.0-34.0 [facility] Comment on above: Order Comment: Speci men Type: BLOOD SPECIMENOrdering Facility: [facility] Address: [address] Performed By: #### 5 7021-8 ####[facility] LABCLIA [id number] [place] [address] [place] MCHC (RBC) [Mass/Vol] 32.1 g/dL Normal 30.5-36.0 [facility] Comment on above: Order Comment: Speci men Type: BLOOD SPECIMENOrdering Facility: [facility] Address: [address] [place] [address] Performed By: #### 5 7021-8 ####[facility] LABIA [id number] [place] [address] [place] MCV (RBC) [Entitic vol] 82.5 fL Normal 80.0-100.0 [facility] Comment on above: Order Comment: Speci men Type: BLOOD SPECIMENOrdering Facility: [facility] Address: [address] [place] [address] Performed By: #### 5 7021-8 ####[facility] LABIA [id number] [place] [address] [place] Monocytes (Bld) [#/Vol] 0.63 10*3/uL Normal <0.87 [facility] Comment on above: Order Comment: Speci men Type: BLOOD SPECIMENOrdering Facility: [facility] Address: [address] [place], [place] [address] Performed By: #### 5 7021-8 ####[facility] LABIA [id number] [place] [address] [place] Monocytes/100 WBC (Bld) 6.1 % Normal [facility] Comment on above: Order Comment: Speci men Type: BLOOD SPECIMENOrdering Facility: [facility] Address: [address] [place], [place] [address] Performed By: #### 5 7021-8 ####[facility] LABIA [id number] [place] [address] [place] Neutrophils (Bld) [#/Vol] 6.80 10*3/uL Normal 1.45-7.50 [facility] Comment on above: Order Comment: Speci men Type: BLOOD SPECIMENOrdering Facility: [facility] Address: [address] [place], [place] [address] Performed By: #### 5 7021-8 ####[facility] LABCLIA [id number] [place] [address] [place] Neutrophils/100 WBC (Bld) 66.2 % Normal [facility] Comment on above: Order Comment: Speci men Type: BLOOD SPECIMENOrdering Facility: [facility] Address: [address] Performed By: #### 5 7021-8 ####[facility] LABCLIA [id number] [place] [address] [place] Nucleated RBC (Bld) [#/Vol] 10*3/uL Normal <0.01 [facility] Comment on above: Order Comment: Speci men Type: BLOOD SPECIMENOrdering Facility: [facility] Address: [address] [place], [place] [address] Performed By: #### 5 7021-8 ####[facility] LABIA [id number] [place] [address] [place] Nucleated RBC/100 WBC (Bld) [Ratio] 0.0 /100 WBC Normal [facility] Comment on above: Order Comment: Speci men Type: BLOOD SPECIMENOrdering Facility: [facility] Address: [address] [place] [address] Performed By: #### 5 7021-8 ####[facility] LABIA [id number] [place] [address] [place] Platelet mean volume (Bld) [Entitic vol] 10.1 fL Normal 9.0-12.7 [facility] Comment on above: Order Comment: Speci men Type: BLOOD SPECIMENOrdering Facility: [facility] Address: [address] [place], [place] [address] Performed By: #### 5 7021-8 ####[facility] LABIA [id number] [place] [address] [place] Platelets (Bld) [#/Vol] 407 10*3/uL High 150-400 [facility] Comment on above: Order Comment: Speci men Type: BLOOD SPECIMENOrdering Facility: [facility] Address: [address] [place] [address] Performed By: #### 5 7021-8 ####[facility] [id number] [place] [address] [place] RBC (Bld) [#/Vol] 4.16 10*6/uL Normal 3.90-5.20 [facility] Comment on above: Order Comment: Speci men Type: BLOOD SPECIMENOrdering Facility: [facility] Address: [address] [place], [place] [address] Performed By: #### 5 7021-8 ####[facility] [id number] [place] [address] [place] WBC (Bld) [#/Vol] 10.28 10*3/uL Normal 3.70-11.00 [facility] Comment on above: Order Comment: Speci men Type: BLOOD SPECIMENOrdering Facility: [facility] Address: [address] [place] [address] Performed By: #### 5 7021-8 ####[facility] [id number] [place] [address] [place] CNPNon 03-02-2023 CNPN Normal [facility] CONSULT PROGon 03-02-2023 CONSULT PROG Normal [facility] Comprehensive metabolic 2000 panelon 03-02-2023 Albumin [Mass/Vol] 4.2 g/dL Normal 3.9-4.[address] [facility] Comment on above: Order Comment: Speci men Type: BLOOD SPECIMENOrdering Facility: [facility] Address: [address] Performed By: #### 2 4323-8 ####[facility] LABCLIA [id number] [place] [address] [place] ALP [Catalytic activity/Vol] 173 U/L High 34-123 [facility] Comment on above: Order Comment: Speci men Type: BLOOD SPECIMENOrdering Facility: [facility] Address: [address] [place] [address] Performed By: #### 2 4323-8 ####[facility] LABCLIA [id number] [place] [address] [place] ALT [Catalytic activity/Vol] 49 U/L High 7-38 [facility] Comment on above: Order Comment: Speci men Type: BLOOD SPECIMENOrdering Facility: [facility] Address: [address] [place] [address] Performed By: #### 2 4323-8 ####[facility] LABCLIA [id number] [place] [address] [place] Anion gap [Moles/Vol] 12 mmol/L Normal 9-18 [facility] Comment on above: Order Comment: Speci men Type: BLOOD SPECIMENOrdering Facility: [facility] Address: [address] [place], [place] [address] Performed By: #### 2 4323-8 ####[facility] LABCLIA [id number] [place] [address] [place] AST [Catalytic activity/Vol] 38 U/L High 13-35 [facility] Comment on above: Order Comment: Speci men Type: BLOOD SPECIMENOrdering Facility: [facility] Address: [address] [place], [place] [address] Performed By: #### 2 4323-8 ####[facility] LABCLIA [id number] [place] [address] [place] Bilirubin [Mass/Vol] 0.8 mg/dL Normal 0.2-1.3 [facility] Comment on above: Order Comment: Speci men Type: BLOOD SPECIMENOrdering Facility: [facility] Address: [address] [place] [address] Performed By: #### 2 4323-8 ####[facility] LABCLIA [id number] [place] [address] [place] Calcium [Mass/Vol] 10.2 mg/dL Normal 8.5-10.[address] [facility] Comment on above: Order Comment: Speci men Type: BLOOD SPECIMENOrdering Facility: [facility] Address: [address] [place] [address] Performed By: #### 2 4323-8 ####[facility] LABCLIA [id number] [place] [address] [place] Chloride [Moles/Vol] 105 mmol/L Normal 97-105 [facility] Comment on above: Order Comment: Speci men Type: BLOOD SPECIMENOrdering Facility: [facility] Address: [address] [place] [address] Performed By: #### 2 4323-8 ####[facility] LABCLIA [id number] [place] [address] [place] CO2 [Moles/Vol] 22 mmol/L Normal 22-30 [facility] Comment on above: Order Comment: Speci men Type: BLOOD SPECIMENOrdering Facility: [facility] Address: [address] [place], [place] [address] Performed By: #### 2 4323-8 ####[facility] LABCLIA [id number] [place] [address] [place] Creatinine [Mass/Vol] 0.85 mg/dL Normal 0.58-0.96 [facility] Comment on above: Order Comment: Speci men Type: BLOOD SPECIMENOrdering Facility: [facility] Address: [address] [place] [address] Performed By: #### 2 4323-8 ####[facility] LABCLIA [id number] [address] ESTIMATED GLOMERULAR FILTRATION RATE 81 mL/min/1.73m??? Normal >=60 [facility] Comment on above: Order Comment: Matti bernal Type: BLOOD SPECIMENOrdering Facility: [facility] Address: [address] [address] Result Comment: Karen mated Glomerular Filtration Rate (eGFR) is calculated using the 2020 CKD-EPI creatinine equation. This equation utilizes serum creatinine, sex, and age as parameters. The creatinine assay has traceable calibration to isotope dilution-mass spectrometry. Refer to KDIGO guidelines for clinical interpretation. In patients with unstable renal function, e.g. those with acute kidney injury, the eGFR may not accurately reflect actual GFR. Performed By: #### 2 4323-8 ####[facility] LABIA [id number] [place] [address] [place] Glucose [Mass/Vol] 104 mg/dL High 74-[address] [facility] Comment on above: Order Comment: Matti bernal Type: BLOOD SPECIMENOrdering Facility: [facility] Address: [address] [place] [address] Result Comment: The [place] [employer] (ADA) provides guidance for cutoff values for fasting glucose and random glucose. The ADA defines fasting as no caloric intake for at least 8 hours. Fasting plasma glucose results between 100 to 125 mg/dL indicate increased risk for diabetes (prediabetes).Fasting plasma glucose results greater than or equal to 126 mg/dL meet the criteria for diagnosis of diabetes. In the absence of unequivocal hyperglycemia, results should be confirmed by repeat testing. In a patient with classic symptoms of hyperglycemia or hyperglycemic crisis, random plasma glucose results greater than or equal to 200 mg/dL meet the criteria for diagnosis of diabetes.Reference: Standards of Medical Care in Diabetes 2016, [place] [employer]. Diabetes Care. 2016.39(Suppl 1). Performed By: #### 2 4323-8 ####[facility] LABCLIA [id number] [place] [address] [place] Potassium [Moles/Vol] 4.1 mmol/L Normal 3.7-5.1 [facility] Comment on above: Order Comment: Speci men Type: BLOOD SPECIMENOrdering Facility: [facility] Address: [address] [place] [address] Performed By: #### 2 4323-8 ####[facility] LABCLIA [id number] [place] [address] [place] Protein [Mass/Vol] 8.2 g/dL High 6.3-8.[address] [facility] Comment on above: Order Comment: Speci men Type: BLOOD SPECIMENOrdering Facility: [facility] Address: [address] [place] [address] Performed By: #### 2 4323-8 ####[facility] LABIA [id number] [place] [address] [place] Sodium [Moles/Vol] 139 mmol/L Normal 136-[address] [facility] Comment on above: Order Comment: Speci men Type: BLOOD SPECIMENOrdering Facility: [facility] Address: [address] [place] [address] Performed By: #### 2 4323-8 ####[facility] LABIA [id number] [place] [address] [place] Urea nitrogen [Mass/Vol] 36 mg/dL High 7-21 [facility] Comment on above: Order Comment: Speci men Type: BLOOD SPECIMENOrdering Facility: [facility] Address: [address] [place] [address] Performed By: #### 2 4323-8 ####[facility] LABIA [id number] [place] [address] [place] Cult, Bloodon 03-02-2023 Cult, Blood Specimen Description .BLOOD Special Requests R HAND 16ML Culture NO GROWTH 5 DAYS Report Status FINAL 03/02/2023 [facility] Comment on above: Performed By: #### B CUL2 ####[facility] [place], [place] [id number] lab Director: Samuel Ayers MD Cult,Urineon 03-02-2023 Cult,Urine Specimen Description .CLEAN CATCH URINE Culture NO SIGNIFICANT GROWTH Report Status FINAL 03/01/2023 [facility] Comment on above: Performed By: #### U RC ####[facility] [id number] [place] [address] lab Director: Ganesh Moyer, [facility] [address] [place] [address] lab Director: Samuel Ayers MD [id number] 03-02-2023 ECG01 Normal [facility] ED NOTEon 03-02-2023 ED NOTE HNO ID: [id number] Author: Danyell Latham RN Service: Emergency Medicine Author Type: Registered Nurse Type: ED Notes Filed: 03/02/2023 8:54 PM Note Text: Medicine team at bedside Normal [facility] ED NOTE Normal [facility] ED NOTE HNO ID: [id number] Author: Shannan Galloway RN Service: Emergency Medicine Author Type: Registered Nurse Type: ED Notes Filed: 03/02/2023 7:25 PM Note Text: Report given to Danyell HARRY Normal [facility] ED NOTE HNO ID: [id number] Author: Danyell Latham RN Service: Emergency Medicine Author Type: Registered Nurse Type: ED Notes Filed: 03/02/2023 8:03 PM Note Text: Assumed care of patient report from Joan HARRY Normal [facility] ED NOTE Normal [facility] ED NOTE HNO ID: [id number] Author: Keshawn Moody, Johanne Service: ? Author Type: Margin Trimmer and Truck Despatcher Type: ED Notes Filed: 03/02/2023 4:02 PM Note Text: Archer Normal [facility] ED PROV NOTEon 03-02-2023 ED PROV NOTE Normal [facility] XR CHEST 1V FRONTAL PORTon 0 03-02-2023 XR CHEST 1V FRONTAL PORT Normal [facility] BLOOD CULTURE ID PANELon A. baumannii Not detected Normal NOT DETECTED [facility] Comment on above: Performed By: #### B CID2 #### [facility] [address] [place] [address] Dr. Laura Bright Bacteriodes fragilis Not detected Normal NOT DETECTED [facility] Comment on above: Performed By: #### B CID2 #### [facility] [address] [place] [address] Dr. Laura DAMOND CONTROLS PASSED Normal [facility] Comment on above: Performed By: #### B CID2 #### [facility] [address] [place] [address] Dr. Laura DAMONDBTHD BLOOD CULTURE BOTTLE INFORMATION [facility] Comment on above: Performed By: #### B CID2 #### [facility] [address] [place] [address] Dr. Laura DAMONDHD1 ANTIMICROBIAL RESIST ANCE GENES [facility] Comment on above: Performed By: #### B CID2 #### [facility] [address] [place] [address] Dr. Laura DAMONDHD2 SEE BELOW [facility] Comment on above: Result Comment: Note : Antimicrobial resitance can occur via multiple mechanisms. A Not Detected result for the [employer] antomicrobial resistance gene assays does not indicate antimicrobial susceptibility. Subculturing is required for species identification and susceptibility testing of isolates. Performed By: #### B CID2 #### [facility] [address] [place] [address] Dr. Laura DAMONDHD3 Positive [facility] Comment on above: Performed By: #### B CID2 #### [facility] [address] [place] [address] Dr. Laura DAMONDHD4 Negative [facility] Comment on above: Performed By: #### B CID2 #### [facility] [address] [place] [address] Dr. Laura DAMONDHD5 YEAST [facility] Comment on above: Performed By: #### B CID2 #### [facility] [address] [place] [address] Dr. Laura Vazquez Set: Set 1 Normal [facility] Comment on above: Performed By: #### B CID2 #### [facility] [address] [place] [address] Dr. Laura Bright Bottle: Aerobic Normal [facility] Comment on above: Performed By: #### B CID2 #### [facility] [address] [place] [address] Dr. Laura Bright C. neoformans/gattii Not detected Normal NOT DETECTED [facility] Comment on above: Performed By: #### B CID2 #### [facility] [address] [place] [address] Dr. Laura Bright Izzy albicans Not detected Normal NOT DETECTED [facility] Comment on above: Performed By: #### B CID2 #### [facility] [address] [place] [address] Dr. Laura Bright Izzy auris Not detected Normal NOT DETECTED [facility] Comment on above: Performed By: #### B CID2 #### [facility] [address] [place] [address] Dr. Laura Bright Izzy glabrata Not detected Normal NOT DETECTED [facility] Comment on above: Performed By: #### B CID2 #### [facility] [address] [place] [address] Dr. Laura Bright Izzy Krusei Not detected Normal NOT DETECTED [facility] Comment on above: Performed By: #### B CID2 #### [facility] [address] [place] [address] Dr. Laura Bright Izzy Parapsilosis Not detected Normal NOT DETECTED [facility] Comment on above: Performed By: #### B CID2 #### [facility] [address] [place] [address] Dr. Laura Bright Izzy Tropicalis Not detected Normal NOT DETECTED [facility] Comment on above: Performed By: #### B CID2 #### [facility] [address] [place] [address] Dr. Laura Bright CTX-M Resistant Gene Not Applicable Normal NOT DETECTED [facility] Comment on above: Performed By: #### B CID2 #### [facility] [address] [place] [address] Dr. Laura Bright E. Cloacae complex Not detected Normal NOT DETECTED [facility] Comment on above: Performed By: #### B CID2 #### [facility] [address] [place] [address] Dr. Laura Bright E. faecalis Not detected Normal NOT DETECTED [facility] Comment on above: Performed By: #### B CID2 #### [facility] [address] [place] [address] Dr. Laura Bright E. faecium Not detected Normal NOT DETECTED [facility] Comment on above: Performed By: #### B CID2 #### [facility] [address] [place] [address] Dr. Laura Bright Enterobacteriaceae Not detected Normal NOT DETECTED [facility] Comment on above: Performed By: #### B CID2 #### [facility] [address] [place] [address] Dr. Laura Bright Escherichia coli Not detected Normal NOT DETECTED [facility] Comment on above: Performed By: #### B CID2 #### [facility] [address] [place] [address] Dr. Laura Bright H. influenzae Not detected Normal NOT DETECTED [facility] Comment on above: Performed By: #### B CID2 #### [facility] [address] [place] [address] Dr. Laura Bright IMP Resistant Gene Not Applicable Normal NOT DETECTED [facility] Comment on above: Performed By: #### B CID2 #### [facility] [address] [place] [address] Dr. Laura Bright K. oxytoca Not detected Normal NOT DETECTED [facility] Comment on above: Performed By: #### B CID2 #### [facility] [address] [place] [address] Dr. Laura Bright K. pneumoniae Not detected Normal NOT DETECTED [facility] Comment on above: Performed By: #### B CID2 #### [facility] [address] [place] [address] Dr. Laura Bright Klebsiella aerogenes Not detected Normal NOT DETECTED [facility] Comment on above: Performed By: #### B CID2 #### [facility] [address] [place] [address] Dr. Laura Bright KPC Resistant Gene Not Applicable Normal NOT DETECTED [facility] Comment on above: Performed By: #### B CID2 #### [facility] [address] [place] [address] Dr. Laura Bright List. monocytogenes Not detected Normal NOT DETECTED [facility] Comment on above: Performed By: #### B CID2 #### [facility] [address] [place] [address] Dr. Laura Bright Mcr-1 Resistant Gene Not Applicable Normal NOT DETECTED [facility] Comment on above: Performed By: #### B CID2 #### [facility] [address] [place] [address] Dr. Laura Bright mecA/C Not Applicable Normal NOT DETECTED [facility] Comment on above: Performed By: #### B CID2 #### [facility] [address] [place] [address] Dr. Laura Bright mecA/C MREJ Not Applicable Normal NOT DETECTED [facility] Comment on above: Performed By: #### B CID2 #### [facility] [address] [place] [address] Dr. Laura Bright N. meningitidis Not detected Normal NOT DETECTED [facility] Comment on above: Performed By: #### B CID2 #### [facility] [address] [place] [address] Dr. Laura Bright NDM Resistant Gene Not Applicable Normal NOT DETECTED [facility] Comment on above: Performed By: #### B CID2 #### [facility] [address] [place] [address] Dr. Laura Bright Oxa-48-like Not Applicable Normal NOT DETECTED [facility] Comment on above: Performed By: #### B CID2 #### [facility] [address] [place] [address] Dr. Laura Bright Proteus Not detected Normal NOT DETECTED [facility] Comment on above: Performed By: #### B CID2 #### [facility] [address] [place] [address] Dr. Laura Bright Pseud. aeruginosa Not detected Normal NOT DETECTED [facility] Comment on above: Performed By: #### B CID2 #### [facility] [address] [place] [address] Dr. Laura Bright S. maltophilia Not detected Normal NOT DETECTED [facility] Comment on above: Performed By: #### B CID2 #### [facility] [address] [place] [address] Dr. Laura Bright Salmonella Not detected Normal NOT DETECTED [facility] Comment on above: Performed By: #### B CID2 #### [facility] [address] [place] [address] Dr. Laura Bright Seratia marcescens Not detected Normal NOT DETECTED [facility] Comment on above: Performed By: #### B CID2 #### [facility] [address] [place] [address] Dr. Laura Bright Site: [place] Rt Chest Normal [facility] Comment on above: Performed By: #### B CID2 #### [facility] [address] [place] [address] Dr. Laura Bright Staph. aureus Not detected Normal NOT DETECTED [facility] Comment on above: Performed By: #### B CID2 #### [facility] [address] [place] [address] Dr. Laura Bright Staph. epidermidis Not detected Normal NOT DETECTED [facility] Comment on above: Performed By: #### B CID2 #### [facility] [address] [place] [address] Dr. Laura Bright Staph. lugdunensis Not detected Normal NOT DETECTED [facility] Comment on above: Performed By: #### B CID2 #### [facility] [address] [place] [address] Dr. Laura Bright Staphylococcus Detected Critically abnormal NOT DETECTED [facility] Comment on above: Performed By: #### B CID2 #### [facility] [address] [place] [address] Dr. Laura Bright Strep. agalactiae Not detected Normal NOT DETECTED [facility] Comment on above: Performed By: #### B CID2 #### [facility] [address] [place] [address] Dr. Laura Bright Strep. pneumoniae Not detected Normal NOT DETECTED [facility] Comment on above: Performed By: #### B CID2 #### [facility] [address] [place] [address] Dr. Laura Bright Strep. pyogenes Not detected Normal NOT DETECTED [facility] Comment on above: Performed By: #### B CID2 #### [facility] [address] [place] [address] Dr. Laura Bright Streptococcus Not detected Normal NOT DETECTED [facility] Comment on above: Performed By: #### B CID2 #### [facility] [address] [place] [address] Dr. Laura Bright Donna/B Resist. Gene Not Applicable Normal NOT DETECTED [facility] Comment on above: Performed By: #### B CID2 #### [facility] [address] [place] [address] Dr. Laura Bright VIM Resistant Gene Not Applicable Normal NOT DETECTED [facility] Comment on above: Performed By: #### B CID2 #### [facility] [address] [place] [address] Dr. Laura Bright CBC AUTO DIFFon 03-01-2023 BASO # 0.1 103/ul Normal 0.0-0.1 [facility] Comment on above: Performed By: #### C BC #### [facility] [address] [place] [address] Dr. Laura Bright Basophils/100 WBC (Bld) 0.8 % Normal 0.2-2.0 [facility] Comment on above: Performed By: #### C BC #### [facility] [address] [place] [address] Dr. Laura Bright EO # 0.2 103/ul Normal 0.0-0.7 [facility] Comment on above: Performed By: #### C BC #### [facility] [address] [place] [address] Dr. Laura Bright Eosinophils/100 WBC (Bld) 3.5 % Normal 0.9-7.0 [facility] Comment on above: Performed By: #### C BC #### [facility] [address] [place] [address] Dr. Laura Bright Erythrocyte distribution width (RBC) [Ratio] 14.6 % Normal 11.0-15.0 [facility] Comment on above: Performed By: #### C BC #### [facility] [address] [place] [address] Dr. Laura Bright Hematocrit (Bld) [Volume fraction] 33.1 % Critically low 36.0-48.0 [facility] Comment on above: Performed By: #### C BC #### [facility] [address] [place] [address] Dr. Laura Bright Hemoglobin (Bld) [Mass/Vol] 10.5 g/dL Critically low 12.0-16.0 [facility] Comment on above: Performed By: #### C BC #### [facility] [address] [place] [address] Dr. Laura Bright IG # 0.01 10e3/ul Normal 0.00-0.03 [facility] Comment on above: Performed By: #### C BC #### [facility] [address] [place] [address] Dr. Laura Bright IG % 0.2 % Normal 0.0-0.5 [facility] Comment on above: Performed By: #### C BC #### [facility] [address] [place] [address] Dr. Laura Bright LYMPH # 2.4 103/ul Normal 1.2-3.8 [facility] Comment on above: Performed By: #### C BC #### [facility] [address] [place] [address] Dr. Laura Bright Lymphocytes/100 WBC (Bld) 37.1 % Normal 20.5-60.0 [facility] Comment on above: Performed By: #### C BC #### [facility] [address] [place] [address] Dr. Laura Bright MANUAL DIFF REQ NO Normal [place] Comment on above: Performed By: #### C BC #### [facility] [address] [place] [address] Dr. Laura Bright MCH (RBC) [Entitic mass] 26.4 pg Critically low 26.7-34.0 [facility] Comment on above: Performed By: #### C BC #### [facility] [address] [place] [address] Dr. Laura Bright MCHC (RBC) [Mass/Vol] 31.7 g/dL Normal 29.9-35.2 [facility] Comment on above: Performed By: #### C BC #### [facility] [address] [place] [address] Dr. Laura Brihgt MCV (RBC) [Entitic vol] 83.2 fL Normal 81.0-99.0 [facility] Comment on above: Performed By: #### C BC #### [facility] [address] [place] [address] Dr. Laura Bright MONO # 0.6 103/ul Normal 0.3-0.8 [facility] Comment on above: Performed By: #### C BC #### [facility] [address] [place] [address] Dr. Laura Bright Monocytes/100 WBC (Bld) 8.7 % Normal 1.7-12.0 [facility] Comment on above: Performed By: #### C BC #### [facility] [address] [place] [address] Dr. Laura Bright NEUT # 3.2 103/ul Normal 1.4-6.5 [facility] Comment on above: Performed By: #### C BC #### [facility] [address] [place] [address] Dr. Laura Bright Neutrophils/100 WBC (Bld) 49.7 % Normal 43.0-75.0 [facility] Comment on above: Performed By: #### C BC #### [facility] [address] [place] [address] Dr. Laura Bright Platelet mean volume (Bld) [Entitic vol] 10.6 fL Normal 9.5-13.5 [facility] Comment on above: Performed By: #### C BC #### [facility] [address] [place] [address] Dr. Laura Bright PLT 411 103/ul Normal 150-450 [facility] Comment on above: Performed By: #### C BC #### [facility] [address] [place] [address] Dr. Laura Bright RBC 3.98 106/ul Critically low 4.20-5.40 [place] Comment on above: Performed By: #### C BC #### [facility] [address] [place] [address] Dr. Laura Bright WBC 6.3 103/ul Normal 4.0-11.0 [facility] Comment on above: Performed By: #### C BC #### [facility] [address] [place] [address] Dr. Laura Bright CULTURE BLOODon 03-01-2023 Microscopic examination of blood, culture Culture Observations: Aerobic bottle positive 03/02 @ 0605 Culture Observations: Refer to accession # [id number] for susceptibilities. Culture Observations: NO GROWTH IN ANAEROBIC BOTTLE AT 5 DAYS. Isolate 1 Staphylococcus hominis Growth of Normal [facility] Comment on above: Performed By: #### B LDCX2 #### [facility] [address] [place] [address] Dr. Laura Bright PROF 14(COMP METB)on 023 Albumin [Mass/Vol] 2.7 g/dL Critically low 3.4-5.0 [facility] Comment on above: Performed By: #### C MP #### [facility] [address] [place] [address] Dr. Laura Bright Albumin/Globulin [Mass ratio] 0.6 {ratio} Normal [facility] Comment on above: Performed By: #### C MP #### [facility] [address] [place] [address] Dr. Laura Bright ALP [Catalytic activity/Vol] 162 U/L Critically high 46-116 [facility] Comment on above: Performed By: #### C MP #### [facility] [address] [place] [address] Dr. Laura Bright ALT [Catalytic activity/Vol] 50 U/L Normal 14-59 [facility] Comment on above: Performed By: #### C MP #### [facility] [address] [address] [address] Laura Bright Anion gap [Moles/Vol] 14.1 mmol/L Normal [facility] Comment on above: Performed By: #### C MP #### [facility] [address] [address] [address] Laura Bright AST [Catalytic activity/Vol] 27 U/L Normal 15-37 [facility] Comment on above: Performed By: #### C MP #### [facility] [address] [address] [address] Laura Bright Bilirubin [Mass/Vol] 0.8 mg/dL Normal 0.2-1.0 [facility] Comment on above: Performed By: #### C MP #### [facility] [address] [place] [address] Dr. Laura Bright Calcium [Mass/Vol] 8.9 mg/dL Normal 8.5-10.1 [facility] Comment on above: Performed By: #### C MP #### [facility] [address] [address] [address] Laura Bright Chloride [Moles/Vol] 107 mmol/L Normal 98-107 [facility] Comment on above: Performed By: #### C MP #### [facility] [address] [address] [address] Laura Bright CO2 [Moles/Vol] 24.4 mmol/L Normal 21.0-32.0 [facility] Comment on above: Performed By: #### C MP #### [facility] [address] [address] [address] Laura Bright Creatinine [Mass/Vol] 0.87 mg/dL Normal 0.55-1.02 [facility] Comment on above: Performed By: #### C MP #### [facility] [address] [address] [address] Laura Bright EGFR-AF PARAGUAYAN >60 Normal >=60 [facility] Comment on above: Performed By: #### C MP #### [facility] [address] [address] [address] Laura Bright EGFR-NON AF PARAGUAYAN >60 Normal >=60 [facility] Comment on above: Performed By: #### C MP #### [facility] [address] [address] [address] Laura Bright Globulin (S) [Mass/Vol] 4.9 g/dL Normal [facility] Comment on above: Performed By: #### C MP #### [facility] [address] [place] [address] Dr. Laura Bright Glucose [Mass/Vol] 99 mg/dL Normal 74-106 [facility] Comment on above: Performed By: #### C MP #### [facility] [address] [address] [address] Laura Bright Potassium [Moles/Vol] 4.5 mmol/L Normal 3.5-5.1 [facility] Comment on above: Performed By: #### C MP #### [facility] [address] [place] [address] Dr. Laura Bright Protein [Mass/Vol] 7.6 g/dL Normal 6.4-8.2 [facility] Comment on above: Performed By: #### C MP #### [facility] [address] [address] [address] Laura Bright Sodium [Moles/Vol] 141 mmol/L Normal 136-145 [facility] Comment on above: Performed By: #### C MP #### [facility] [address] [address] [address] Laura Bright Urea nitrogen [Mass/Vol] 37.0 mg/dL Critically high 7.0-18.0 [facility] Comment on above: Performed By: #### C MP #### [facility] [address], [place] [address] Dr. Laura Bright Urea nitrogen/Creatinine [Mass ratio] 42.5 mg/mg Normal [facility] Comment on above: Performed By: #### C MP #### [facility] [address], [place] [address] Dr. Laura Bright C-Reactive Proteinon 023 CRP [Mass/Vol] 19.8 mg/L High 0.0-5.0 [facility] Comment on above: Performed By: #### P HO, MG, CRP, CDP, CMPX ####[address] [place], [place] [id number] lab Director: Samuel Ayers MD CBC with Diffon 02-28-2023 Abs. Basophil 0.04 k/uL Normal 0.00-0.20 [facility] Comment on above: Performed By: #### P HO, MG, CRP, CDP, CMPX ####[address] , [place] [id number] lab Director: Samuel Ayers MD Abs.Imm.Granulocyte 0.03 k/uL Normal 0.00-0.30 [facility] Comment on above: Performed By: #### P HO, MG, CRP, CDP, CMPX ####[address] , [place] 7503883 lab Director: Samuel Ayers MD Abs.Neutrophil (Seg) 3.09 k/uL Normal 1.50-8.10 [facility] Comment on above: Performed By: #### P HO, MG, CRP, CDP, CMPX ####[address] [place], [place] 997[address] lab Director: Samuel Ayers MD Basophils/100 WBC (Bld) 1 % Normal 0-2 [facility] Comment on above: Performed By: #### P HO, MG, CRP, CDP, CMPX ####[address] [facility]83 [facility] Director: Samuel Ayers MD Eosinophils (Bld) [#/Vol] 0.26 10*3/uL Normal 0.00-0.44 [facility] Comment on above: Performed By: #### P HO, MG, CRP, CDP, CMPX ####[address] , [facility]83 Lab Director: Samuel Ayers MD Eosinophils/100 WBC (Bld) 5 % High 1-4 [facility] Comment on above: Performed By: #### P HO, MG, CRP, CDP, CMPX ####[address] , [facility]83 Lab Director: Samuel Ayers MD Erythrocyte distribution width (RBC) [Ratio] 14.2 % Normal 11.8-14.4 [facility] Comment on above: Performed By: #### P HO, MG, CRP, CDP, CMPX ####[address] , [facility]83 Lab Director: Samuel Ayers MD Hematocrit (Bld) [Volume fraction] 31.0 % Low 36.3-47.1 [facility] Comment on above: Performed By: #### P HO, MG, CRP, CDP, CMPX ####[address] , [place] [address] Lab Director: Samuel Ayers MD Hemoglobin (Bld) [Mass/Vol] 9.8 g/dL Low 11.9-15.1 [facility] Comment on above: Performed By: #### P HO, MG, CRP, CDP, CMPX ####[address] , [facility]83 Lab Director: Samuel Ayers MD Immature granulocytes/100 WBC (Bld) 1 % High 0 [facility] Comment on above: Performed By: #### P HO, MG, CRP, CDP, CMPX ####[address] , [place] 7404583 Lab Director: Samuel Ayers MD Lymphocytes (Bld) [#/Vol] 1.71 10*3/uL Normal 1.10-3.70 [facility] Comment on above: Performed By: #### P HO, MG, CRP, CDP, CMPX ####[address] , [facility]81([facility])[phone] Director: Samuel Ayers MD Lymphocytes/100 WBC (Bld) 29 % Normal 24-43 [facility] Comment on above: Performed By: #### P HO, MG, CRP, CDP, CMPX ####[address] , [facility]40([facility])[phone] Director: Samuel Ayers MD MCH (RBC) [Entitic mass] 27.1 pg Normal 25.2-33.5 [facility] Comment on above: Performed By: #### P HO, MG, CRP, CDP, CMPX ####[address] , [place] [id number] Lab Director: Samuel Ayers MD MCHC (RBC) [Mass/Vol] 31.6 g/dL Normal 28.4-34.8 [facility] Comment on above: Performed By: #### P HO, MG, CRP, CDP, CMPX ####[address] , [facility]01([facility])[phone] Director: Samuel Ayers MD MCV (RBC) [Entitic vol] 85.9 fL Normal 82.6-102.9 [facility] Comment on above: Performed By: #### P HO, MG, CRP, CDP, CMPX ####[address] , [place] 2238083 Lab Director: Samuel Ayers MD Monocytes (Bld) [#/Vol] 0.70 10*3/uL Normal 0.10-1.20 [facility] Comment on above: Performed By: #### P HO, MG, CRP, CDP, CMPX ####[address] , [place] 1347783 Lab Director: Samuel Ayers MD Monocytes/100 WBC (Bld) 12 % Normal 3-12 [facility] Comment on above: Performed By: #### P HO, MG, CRP, CDP, CMPX ####[address] , [facility]83 Lab Director: Samuel Ayers MD Neutrophil (Seg) 52 % Normal 36-65 [facility] Comment on above: Performed By: #### P HO, MG, CRP, CDP, CMPX ####[address] , [place] 6977183 lab Director: Samuel Ayers MD NRBC Automated 0.0 per [address] [facility] Comment on above: Performed By: #### P HO, MG, CRP, CDP, CMPX ####[address] , [place] 5212383 Lab Director: Samuel Ayers MD Platelet mean volume (Bld) [Entitic vol] 10.7 fL Normal 8.1-13.5 [facility] Comment on above: Performed By: #### P HO, MG, CRP, CDP, CMPX ####[address] , [facility]83 Lab Director: Samuel Ayers MD Platelets (Bld) [#/Vol] 340 10*3/uL Normal 138-453 [facility] Comment on above: Performed By: #### P HO, MG, CRP, CDP, CMPX ####[address] , [place] 1019883 Lab Director: Samuel Ayers MD RBC (Bld) [#/Vol] 3.61 10*6/uL Low 3.95-5.11 [facility] Comment on above: Performed By: #### P HO, MG, CRP, CDP, CMPX ####[address] [place] [address] lab Director: Samuel Ayers MD WBC (Bld) [#/Vol] 5.8 10*3/uL Normal 3.5-11.3 [facility] Comment on above: Performed By: #### P HO, MG, CRP, CDP, CMPX ####[address] , [place] 9773283 lab Director: Samuel Ayers MD CT CHEST W CONTRASTon 2022 CT CHEST W CONTRAST Normal [facility] Comp Metabolic Pr/rfx MGon 0 02-28-2023 Albumin [Mass/Vol] 3.1 g/dL Low 3.5-5.2 [facility] Comment on above: Performed By: #### P HO, MG, CRP, CDP, CMPX ####[address] , [place] 9954683 lab Director: Samuel Ayers MD Albumin/Glob Ratio 0.8 Low 1.0-2.5 [facility] Comment on above: Performed By: #### P HO, MG, CRP, CDP, CMPX ####[address] , [place] 3426483 lab Director: Samuel Ayers MD Alkaline Phos 143 U/L High 35-104 [facility] Comment on above: Performed By: #### P HO, MG, CRP, CDP, CMPX ####[address] [place] [address] lab Director: Samuel Ayers MD ALT [Catalytic activity/Vol] 29 U/L Normal 5-33 [facility] Comment on above: Performed By: #### P HO, MG, CRP, CDP, CMPX ####[address] 0913683 lab Director: Samuel Ayers MD Anion gap [Moles/Vol] 8 mmol/L Low 9-17 [facility] Comment on above: Performed By: #### P HO, MG, CRP, CDP, CMPX ####[address] , [place] 1073783 lab Director: Samuel Ayers MD AST [Catalytic activity/Vol] 20 U/L Normal <32 [facility] Comment on above: Performed By: #### P HO, MG, CRP, CDP, CMPX ####[address] , [place] 1619983 lab Director: Samuel Ayers MD Bilirubin [Mass/Vol] 0.6 mg/dL Normal 0.3-1.2 [facility] Comment on above: Performed By: #### P HO, MG, CRP, CDP, CMPX ####[address] , [place] 4772583 lab Director: Samuel Ayers MD BUN/CRE Ratio 45 High 9-20 [facility] Comment on above: Performed By: #### P HO, MG, CRP, CDP, CMPX ####[address] , [place] 2742083 lab Director: Samuel Ayers MD Calcium [Mass/Vol] 9.0 mg/dL Normal 8.6-10.4 [facility] Comment on above: Performed By: #### P HO, MG, CRP, CDP, CMPX ####[address] , [place] 1600383 lab Director: Samuel Ayers MD Chloride [Moles/Vol] 114 mmol/L High 98-107 [facility] Comment on above: Performed By: #### P HO, MG, CRP, CDP, CMPX ####[address] [place], [place] 6317[address] lab Director: Samuel Ayers MD CO2 [Moles/Vol] 20 mmol/L Normal 20-31 [facility] Comment on above: Performed By: #### P HO, MG, CRP, CDP, CMPX ####[facility] [place] [address] lab Director: Samuel Ayers MD Creatinine [Mass/Vol] 0.67 mg/dL Normal 0.50-0.90 [facility] Comment on above: Performed By: #### P HO, MG, CRP, CDP, CMPX ####[address] [place] [address] lab Director: Samuel Ayers MD GFR/1.73 sq M.predicted among non-blacks MDRD (S/P/Bld) [Vol rate/Area] mL/min/{1.73_m2} Normal >60 [facility] Comment on above: Result Comment: Thes e results are not intended for use in patients <18 years of age.eGFR results are calculated without a race factor using the 2020 CKD-EPI equation.Careful clinical correlation is recommended, particularly when comparing to results calculated using previous equations.The CKD-EPI equation is less accurate in patients with extremes of muscle mass, extra-renal metabolism of creatine, excessive creatine ingestion, or following therapy that affects renal tubular secretion. Performed By: #### P HO, MG, CRP, CDP, CMPX ####[address] [place] [address] lab Director: Samuel Ayers MD Glucose [Mass/Vol] 133 mg/dL High 70-99 [facility] Comment on above: Performed By: #### P HO, MG, CRP, CDP, CMPX ####[address] [place] [address] lab Director: Samuel Ayers MD Potassium [Moles/Vol] 4.4 mmol/L Normal 3.7-5.3 [facility] Comment on above: Performed By: #### P HO, MG, CRP, CDP, CMPX ####[address] , [place] 0566883 lab Director: Samuel Ayers MD Protein [Mass/Vol] 7.0 g/dL Normal 6.4-8.3 [facility] Comment on above: Performed By: #### P HO, MG, CRP, CDP, CMPX ####[address] , [place] 6448083 lab Director: Samuel Ayers MD Sodium [Moles/Vol] 142 mmol/L Normal 135-144 [facility] Comment on above: Performed By: #### P HO, MG, CRP, CDP, CMPX ####[address] , [place] 4197783 lab Director: Samuel Ayers MD Urea nitrogen [Mass/Vol] 30 mg/dL High 6-20 [facility] Comment on above: Performed By: #### P HO, MG, CRP, CDP, CMPX ####[address] , [place] 4220383 lab Director: Samuel Ayers MD Magnesiumon 02-28-2023 Magnesium [Mass/Vol] 2.0 mg/dL Normal 1.6-2.6 [facility] Comment on above: Performed By: #### P HO, MG, CRP, CDP, CMPX ####[address] , [place] 6619883 lab Director: Samuel Ayers MD Phosphorus, Inorg.on 023 Phosphorus, Inorg. 3.4 mg/dL Normal 2.6-4.5 [facility] Comment on above: Performed By: #### P HO, MG, CRP, CDP, CMPX ####[address] , [place] 0149183 lab Director: Samuel Ayers MD C-Reactive Proteinon 05-22-2 023 CRP [Mass/Vol] 37.2 mg/L High 0.0-5.0 [facility] Comment on above: Performed By: #### M G, CRP, VNCR, CMPX, ANURADHA, CDP, IPF ####[address] [place] [address] [facility] Director: Samuel Ayers MD#### TRIG ####[place] [address] [place], [place] [address])[phone] Director: Ganesh Moyer MD CBC with Diffon 02-27-2023 Abs. Basophil 0.03 k/uL Normal 0.00-0.20 [facility] Comment on above: Performed By: #### M G, CRP, VNCR, CMPX, ANURADHA, CDP, IPF ####[address] [place] 33[address]83 [facility] Director: Samuel Ayers MD#### TRIG ####[place] [address] Lab Director: Ganesh Moyer MD Abs.Imm.Granulocyte <0.03 Normal 0.00-0.30 [facility] Comment on above: Performed By: #### M G, CRP, VNCR, CMPX, ANURADHA, CDP, IPF ####[address] [place], [place] 5412183 Lab Director: Samuel Ayers MD#### TRIG ####[address] [address] Lab Director: Ganesh Moyer MD Abs.Neutrophil (Seg) 2.17 k/uL Normal 1.50-8.10 [facility] Comment on above: Performed By: #### M G, CRP, VNCR, CMPX, ANURADHA, CDP, IPF ####[address] [place], [place] 3308683 Lab Director: Samuel Ayers MD#### TRIG ####[place] [address] [place] [address] Lab Director: Ganesh Moyer MD Basophils/100 WBC (Bld) 1 % Normal 0-2 [facility] Comment on above: Performed By: #### M G, CRP, VNCR, CMPX, ANURADHA, CDP, IPF ####[address] [place] 33[address]83 Lab Director: Samuel Ayers MD#### TRIG ####[address] [address] Lab Director: Ganesh Moyer MD Eosinophils (Bld) [#/Vol] 0.23 10*3/uL Normal 0.00-0.44 [facility] Comment on above: Performed By: #### M G, CRP, VNCR, CMPX, ANURADHA, CDP, IPF ####[address] [place] 33[address]83 [facility] Director: Samuel Ayers MD#### TRIG ####[place] [address] Lab Director: Ganesh Moyer MD Eosinophils/100 WBC (Bld) 5 % High 1-4 [facility] Comment on above: Performed By: #### M G, CRP, VNCR, CMPX, ANURADHA, CDP, IPF ####[address] [place] 33[address]83 Lab Director: Samuel Ayers MD#### TRIG ####[address] [address] Lab Director: Ganesh Moyer MD Erythrocyte distribution width (RBC) [Ratio] 14.6 % High 11.8-14.4 [facility] Comment on above: Performed By: #### M G, CRP, VNCR, CMPX, ANURADHA, CDP, IPF ####[address] [place] 33[address]12 Lab Director: Samuel Ayers MD#### TRIG ####[address] [address] Lab Director: Ganesh Moyer MD Hematocrit (Bld) [Volume fraction] 32.3 % Low 36.3-47.1 [facility] Comment on above: Performed By: #### M G, CRP, VNCR, CMPX, ANURADHA, CDP, IPF ####[address] [place] [address]([facility])[phone] Director: Samuel Ayers MD#### TRIG ####[place], [place] [address])[phone] Director: Ganesh Moyer MD Hemoglobin (Bld) [Mass/Vol] 9.9 g/dL Low 11.9-15.1 [facility] Comment on above: Performed By: #### M G, CRP, VNCR, CMPX, ANURADHA, CDP, IPF ####[address] [place], [place] [address])[phone] Director: Samuel Ayers MD#### TRIG ####[place], [place] [address])[phone] Director: Ganesh Moyer MD Immature granulocytes/100 WBC (Bld) 0 % Normal 0 [facility] Comment on above: Performed By: #### M G, CRP, VNCR, CMPX, ANURADHA, CDP, IPF ####[address] [place] [address]([facility])[phone] Director: Samuel Ayers MD#### TRIG ####[place] [address] Lab Director: Ganesh Moyer MD Lymphocytes (Bld) [#/Vol] 1.78 10*3/uL Normal 1.10-3.70 [facility] Comment on above: Performed By: #### M G, CRP, VNCR, CMPX, ANURADHA, CDP, IPF ####[address] [place], [place] 9205383 Lab Director: Samuel Ayers MD#### TRIG ####[address] 1905[address] Lab Director: Ganesh Moyer MD Lymphocytes/100 WBC (Bld) 36 % Normal 24-43 [facility] Comment on above: Performed By: #### M G, CRP, VNCR, CMPX, ANURADHA, CDP, IPF ####[address] [place], [place] 9842583 Lab Director: Samuel Ayers MD#### TRIG ####[address] [id number] Lab Director: Ganesh Moyer MD MCH (RBC) [Entitic mass] 26.5 pg Normal 25.2-33.5 [facility] Comment on above: Performed By: #### M G, CRP, VNCR, CMPX, ANURADHA, CDP, IPF ####[address] [place] 33[address]83 Lab Director: Samuel Ayers MD#### TRIG ####[address] [address] Lab Director: Ganesh Moyer MD MCHC (RBC) [Mass/Vol] 30.7 g/dL Normal 28.4-34.8 [facility] Comment on above: Performed By: #### M G, CRP, VNCR, CMPX, ANURADHA, CDP, IPF ####[address] [place], [place] 0421383 Lab Director: Samuel Ayers MD#### TRIG ####[address] [phone] Lab Director: Ganesh Moyer MD MCV (RBC) [Entitic vol] 86.6 fL Normal 82.6-102.9 [facility] Comment on above: Performed By: #### M G, CRP, VNCR, CMPX, ANURADHA, CDP, IPF ####[address] [place], [place] [address])[phone] Director: Samuel Ayers MD#### TRIG ####[place] [address] [place] [address] Lab Director: Ganesh Moyer MD Monocytes (Bld) [#/Vol] 0.76 10*3/uL Normal 0.10-1.20 [facility] Comment on above: Performed By: #### M G, CRP, VNCR, CMPX, ANURADHA, CDP, IPF ####[address] [place] 3315583 Lab Director: Samuel Ayers MD#### TRIG ####[address] [address])[phone] Director: Ganesh Moyer MD Monocytes/100 WBC (Bld) 15 % High 3-12 [facility] Comment on above: Performed By: #### M G, CRP, VNCR, CMPX, ANURADHA, CDP, IPF ####[address] [place], [place] 1338783 Lab Director: Samuel Ayers MD#### TRIG ####[address] [address] Lab Director: Ganesh Moyer MD Neutrophil (Seg) 44 % Normal 36-65 [facility] Comment on above: Performed By: #### M G, CRP, VNCR, CMPX, ANURADHA, CDP, IPF ####[address] [place] 33[address]83 Lab Director: Samuel Ayers MD#### TRIG ####[place] [address] [place] [address] Lab Director: Ganesh Moyer MD NRBC Automated 0.0 per [address] [facility] Comment on above: Performed By: #### M G, CRP, VNCR, CMPX, ANURADHA, CDP, IPF ####[address] [place] [address]([facility])[phone] Director: Samuel Ayers MD#### TRIG ####[address] [address] Lab Director: Ganesh Moyer MD Platelet Count See Reflexed IPF Result Normal 138-453 [facility] Comment on above: Performed By: #### M G, CRP, VNCR, CMPX, ANURADHA, CDP, IPF ####[address] [place] [address]([facility])[phone] Director: Samuel Ayers MD#### TRIG ####[place] [address] Lab Director: Ganesh Moyer MD RBC (Bld) [#/Vol] 3.73 10*6/uL Low 3.95-5.11 [facility] Comment on above: Performed By: #### M G, CRP, VNCR, CMPX, ANURADHA, CDP, IPF ####[address] [place] 33[address]83 Lab Director: Samuel Ayers MD#### TRIG ####[place] [address] Lab Director: Ganesh Moyer MD WBC (Bld) [#/Vol] 5.0 10*3/uL Normal 3.5-11.3 [facility] Comment on above: Performed By: #### M G, CRP, VNCR, CMPX, ANURADHA, CDP, IPF ####[address] [place] 33[address]83 Lab Director: Samuel Ayers MD#### TRIG ####[address] [address])[phone] Director: Ganesh Moyer MD Comp Metabolic Pr/rfx MGon 0 02-27-2023 Albumin [Mass/Vol] 3.1 g/dL Low 3.5-5.2 [facility] Comment on above: Performed By: #### M G, CRP, VNCR, CMPX, ANURADHA, CDP, IPF ####[address] [place], [place] [address])[phone] Director: Samuel Ayers MD#### TRIG ####[address] [address] Lab Director: Ganesh Moyer MD Albumin/Glob Ratio 0.8 Low 1.0-2.5 [facility] Comment on above: Performed By: #### M G, CRP, VNCR, CMPX, ANURADHA, CDP, IPF ####[address] [place], [place] [address])[phone] Director: Samuel Ayers MD#### TRIG ####[address] [address] Lab Director: Ganesh Moyer MD Alkaline Phos 148 U/L High 35-104 [facility] Comment on above: Performed By: #### M G, CRP, VNCR, CMPX, ANURADHA, CDP, IPF ####[address] [place] 33[address]83 Lab Director: Samuel Ayers MD#### TRIG ####[address] [address] Lab Director: Ganesh Moyer MD ALT [Catalytic activity/Vol] 35 U/L High 5-33 [facility] Comment on above: Performed By: #### M G, CRP, VNCR, CMPX, ANURADHA, CDP, IPF ####[address] [place] 3315583 Lab Director: Samuel Ayers MD#### TRIG ####[place] [address] [place], [place] 2500908 Lab Director: Ganesh Moyer MD Anion gap [Moles/Vol] 6 mmol/L Low 9-17 [facility] Comment on above: Performed By: #### M G, CRP, VNCR, CMPX, ANURADHA, CDP, IPF ####[address] [place], [place] 3200383 Lab Director: Samuel Ayers MD#### TRIG ####[address] [phone] Lab Director: Ganesh Moyer MD AST [Catalytic activity/Vol] 23 U/L Normal <32 [facility] Comment on above: Performed By: #### M G, CRP, VNCR, CMPX, ANURADHA, CDP, IPF ####[address] [place] [address]([facility])[phone] Director: Samuel Ayers MD#### TRIG ####[address] [address] Lab Director: Ganesh Moyer MD Bilirubin [Mass/Vol] 0.7 mg/dL Normal 0.3-1.2 [facility] Comment on above: Performed By: #### M G, CRP, VNCR, CMPX, ANURADHA, CDP, IPF ####[address] [place], [place] 4664383 Lab Director: Samuel Ayers MD#### TRIG ####[address] [address] Lab Director: Ganesh Moyer MD BUN/CRE Ratio 39 High 9-20 [facility] Comment on above: Performed By: #### M G, CRP, VNCR, CMPX, ANURADHA, CDP, IPF ####[address] [place], [place] 3670583 Lab Director: Samuel Ayers MD#### TRIG ####[address] [phone] Lab Director: Ganesh Moyer MD Calcium [Mass/Vol] 8.7 mg/dL Normal 8.6-10.4 [facility] Comment on above: Performed By: #### M G, CRP, VNCR, CMPX, ANURADHA, CDP, IPF ####[address] [place], [place] 2161483 Lab Director: Samuel Ayers MD#### TRIG ####[address] [address] Lab Director: Ganesh Moyer MD Chloride [Moles/Vol] 112 mmol/L High 98-107 [facility] Comment on above: Performed By: #### M G, CRP, VNCR, CMPX, ANURADHA, CDP, IPF ####[address] [place], [place] 3458783 Lab Director: Samuel Ayers MD#### TRIG ####[address] [address] Lab Director: Ganesh Moyer MD CO2 [Moles/Vol] 23 mmol/L Normal 20-31 [facility] Comment on above: Performed By: #### M G, CRP, VNCR, CMPX, ANURADHA, CDP, IPF ####[address] [place] 1805283 Lab Director: Samuel Ayers MD#### TRIG ####[address] [phone] Lab Director: Ganesh Moyer MD Creatinine [Mass/Vol] 0.66 mg/dL Normal 0.50-0.90 [facility] Comment on above: Performed By: #### M G, CRP, VNCR, CMPX, ANURADHA, CDP, IPF ####[facility] [place], [place] 8584883 Lab Director: Samuel Ayers MD#### TRIG ####[address] [phone] Lab Director: Ganesh Moyer MD GFR/1.73 sq M.predicted among non-blacks MDRD (S/P/Bld) [Vol rate/Area] mL/min/{1.73_m2} Normal >60 [facility] Comment on above: Result Comment: Thes e results are not intended for use in patients <18 years of age.eGFR results are calculated without a race factor using the 2020 CKD-EPI equation.Careful clinical correlation is recommended, particularly when comparing to results calculated using previous equations.The CKD-EPI equation is less accurate in patients with extremes of muscle mass, extra-renal metabolism of creatine, excessive creatine ingestion, or following therapy that affects renal tubular secretion. Performed By: #### M G, CRP, VNCR, CMPX, ANURADHA, CDP, IPF ####[address] [place], [place] 6346883 Lab Director: Samuel Ayers MD#### TRIG ####[address] [phone] Lab Director: Ganesh Moyer MD Glucose [Mass/Vol] 140 mg/dL High 70-99 [facility] Comment on above: Performed By: #### M G, CRP, VNCR, CMPX, ANURADHA, CDP, IPF ####[address] [place], [place] 864[address]83 Lab Director: Samuel Ayers MD#### TRIG ####[place] [address] [place], [place] 9732508 Lab Director: Ganesh Moyer MD Potassium [Moles/Vol] 4.8 mmol/L Normal 3.7-5.3 [facility] Comment on above: Performed By: #### M G, CRP, VNCR, CMPX, ANURADHA, CDP, IPF ####[facility] [place] , [place] 0059783 Lab Director: Samuel Ayers MD#### TRIG ####[place] [address] [place] [address] Lab Director: Ganesh Moyer MD Protein [Mass/Vol] 6.9 g/dL Normal 6.4-8.3 [facility] Comment on above: Performed By: #### M G, CRP, VNCR, CMPX, ANURADHA, CDP, IPF ####[address] [place], [place] 7695283 Lab Director: Samuel Ayers MD#### TRIG ####[address] [address] Lab Director: Ganesh Moyer MD Sodium [Moles/Vol] 141 mmol/L Normal 135-144 [facility] Comment on above: Performed By: #### M G, CRP, VNCR, CMPX, ANURADHA, CDP, IPF ####[address] , [place] 733[address] Lab Director: Samuel Ayers MD#### TRIG ####[address] [address] Lab Director: Ganesh Moyer MD Urea nitrogen [Mass/Vol] 26 mg/dL High 6-20 [facility] Comment on above: Performed By: #### M G, CRP, VNCR, CMPX, ANURADHA, CDP, IPF ####[address] , [place] 5300583 Lab Director: Samuel Ayers MD#### TRIG ####[place] [address] [place] [address] Lab Director: Ganesh Moyer MD Cult,Bloodon 02-27-2023 Cult,Blood Abnormal [facility] Comment on above: Performed By: #### B C ####[facility] [place] [address] Lab Director: TAMIKA Arcos[address] [place], [place] 15[address] Lab Director: Samuel Ayers MD Magnesiumon 02-27-2023 Magnesium [Mass/Vol] 2.1 mg/dL Normal 1.6-2.6 [facility] Comment on above: Performed By: #### M G, CRP, VNCR, CMPX, ANURADHA, CDP, IPF ####[address] [place], [place] 9582483 Lab Director: Samuel Ayers MD#### TRIG ####[address] [phone] Director: Ganesh Moyer MD PLT, Immature Fract.on 02-27 Platelet, Fluoresc. 297 k/uL Normal 138-453 [facility] Comment on above: Performed By: #### M G, CRP, VNCR, CMPX, ANURADHA, CDP, IPF ####[address] , [place] 1539783 Lab Director: Samuel Ayers MD#### TRIG ####[address] [address] Lab Director: Ganesh Moyer MD PLT, Immature Fract. 3.8 % Normal 1.1-10.3 [facility] Comment on above: Performed By: #### M G, CRP, VNCR, CMPX, ANURADHA, CDP, IPF ####[address] , [place] 2173783 Lab Director: Samuel Ayers MD#### TRIG ####[place] [address] [place] [address] Lab Director: Ganesh Moyer MD Phosphorus, Inorg.on 023 Phosphorus, Inorg. 4.0 mg/dL Normal 2.6-4.5 [facility] Comment on above: Performed By: #### M G, CRP, VNCR, CMPX, ANURADHA, CDP, IPF ####[address] [place] [address]([facility])[phone] Director: Samuel Ayers MD#### TRIG ####[address] [place] [address] Lab Director: Ganesh Moyer MD Triglycerideson 02-27-2023 Triglyceride [Mass/Vol] 122 mg/dL Normal <150 [facility] Comment on above: Result Comment: Trig lyceride Guidelines: <150 Desirable 150- 199 Borderline 200-499 High >499 Very high Based on AHA Guidelines for fasting triglyceride, July 2012. Performed By: #### M G, CRP, VNCR, CMPX, ANURADHA, CDP, IPF ####[address] [place] [id number]([facility])[phone] Director: Samuel Ayers MD#### TRIG ####[address] [address] Lab Director: Ganesh Moyer MD Vancomycin,Randomon 02-28-20 23 Vancomycin 17.9 ug/mL Normal [facility] Comment on above: Result Comment: Refe rence RangesPeak: 30 - 40Trough: 10 - 20 Performed By: #### M G, CRP, VNCR, CMPX, ANURADHA, CDP, IPF ####[address] [place] [id number]([facility])[phone] Director: Samuel Ayers MD#### TRIG ####[address] [address] Lab Director: Ganesh Moyer MD C-Reactive Proteinon 023 CRP [Mass/Vol] 55.6 mg/L High 0.0-5.0 [facility] Comment on above: Performed By: #### C MPX, CRP, CDP ####[address] [place] [address] Lab Director: Samuel Ayers MD CBC with Diffon 02-26-2023 Abs. Basophil 0.05 k/uL Normal 0.00-0.20 [facility] Comment on above: Performed By: #### C MPX, CRP, CDP ####[address] , [facility]83[facility])[phone] Director: Samuel Ayers MD Abs.Imm.Granulocyte 0.03 k/uL Normal 0.00-0.30 [facility] Comment on above: Performed By: #### C MPX, CRP, CDP ####[address] , [facility]83[facility])[phone] Director: Samuel Ayers MD Abs.Neutrophil (Seg) 4.69 k/uL Normal 1.50-8.10 [facility] Comment on above: Performed By: #### C MPX, CRP, CDP ####[address] , [facility]83[facility])[phone] Director: Samuel Ayers MD Basophils/100 WBC (Bld) 1 % Normal 0-2 [facility] Comment on above: Performed By: #### C MPX, CRP, CDP ####[address] , [facility]83[facility])[phone] Director: Samuel Ayers MD Eosinophils (Bld) [#/Vol] 0.15 10*3/uL Normal 0.00-0.44 [facility] Comment on above: Performed By: #### C MPX, CRP, CDP ####[address] , [place] [address])[phone] Director: Samuel Ayers MD Eosinophils/100 WBC (Bld) 2 % Normal 1-4 [facility] Comment on above: Performed By: #### C MPX, CRP, CDP ####[address] 0854883 Lab Director: Samuel Ayers MD Erythrocyte distribution width (RBC) [Ratio] 14.6 % High 11.8-14.4 [facility] Comment on above: Performed By: #### C MPX, CRP, CDP ####[address] , [place] [id number] Lab Director: Samuel Ayers MD Hematocrit (Bld) [Volume fraction] 31.8 % Low 36.3-47.1 [facility] Comment on above: Performed By: #### C MPX, CRP, CDP ####[address] , [place] 2554883 Lab Director: Samuel Ayers MD Hemoglobin (Bld) [Mass/Vol] 9.8 g/dL Low 11.9-15.1 [facility] Comment on above: Performed By: #### C MPX, CRP, CDP ####[address] , [place] 7520783 Lab Director: Samuel Ayers MD Immature granulocytes/100 WBC (Bld) 0 % Normal 0 [facility] Comment on above: Performed By: #### C MPX, CRP, CDP ####[address] , [place] 1311783 Lab Director: Samuel Ayers MD Lymphocytes (Bld) [#/Vol] 2.03 10*3/uL Normal 1.10-3.70 [facility] Comment on above: Performed By: #### C MPX, CRP, CDP ####[address] , [place] 7450183 Lab Director: Samuel Ayers MD Lymphocytes/100 WBC (Bld) 25 % Normal 24-43 [facility] Comment on above: Performed By: #### C MPX, CRP, CDP ####[address] [place], [place] [address] Lab Director: Samuel Ayers MD MCH (RBC) [Entitic mass] 26.8 pg Normal 25.2-33.5 [facility] Comment on above: Performed By: #### C MPX, CRP, CDP ####[address] , [place] [address])[phone] Director: Samuel Ayers MD MCHC (RBC) [Mass/Vol] 30.8 g/dL Normal 28.4-34.8 [facility] Comment on above: Performed By: #### C MPX, CRP, CDP ####[address] , [place] [address])[phone] Director: Samuel Ayers MD MCV (RBC) [Entitic vol] 86.9 fL Normal 82.6-102.9 [facility] Comment on above: Performed By: #### C MPX, CRP, CDP ####[address] , [facility]83[facility])[phone] Director: Samuel Ayers MD Monocytes (Bld) [#/Vol] 1.09 10*3/uL Normal 0.10-1.20 [facility] Comment on above: Performed By: #### C MPX, CRP, CDP ####[address] , [facility]83[facility])[phone] Director: Samuel Ayers MD Monocytes/100 WBC (Bld) 14 % High 3-12 [facility] Comment on above: Performed By: #### C MPX, CRP, CDP ####[address] [place] [address] Lab Director: Samuel Ayers MD Neutrophil (Seg) 58 % Normal 36-65 [facility] Comment on above: Performed By: #### C MPX, CRP, CDP ####[address] , [facility]83 Lab Director: Samuel Ayers MD NRBC Automated 0.0 per [address] [facility] Comment on above: Performed By: #### C MPX, CRP, CDP ####[address] , [place] 1736383 Lab Director: Samuel Ayers MD Platelet mean volume (Bld) [Entitic vol] 10.8 fL Normal 8.1-13.5 [facility] Comment on above: Performed By: #### C MPX, CRP, CDP ####[address] [place] [address] Lab Director: Samuel Ayers MD Platelets (Bld) [#/Vol] 288 10*3/uL Normal 138-453 [facility] Comment on above: Performed By: #### C MPX, CRP, CDP ####[address] , [facility]83[facility])[phone] Director: Samuel Ayers MD RBC (Bld) [#/Vol] 3.66 10*6/uL Low 3.95-5.11 [facility] Comment on above: Performed By: #### C MPX, CRP, CDP ####[address] , [place] 8624883 Lab Director: Samuel Ayers MD WBC (Bld) [#/Vol] 8.0 10*3/uL Normal 3.5-11.3 [facility] Comment on above: Performed By: #### C MPX, CRP, CDP ####[address] , [place] 5830983 Lab Director: Samuel Ayers MD Comp Metabolic Pr/rfx MGon 0 - Albumin [Mass/Vol] 3.1 g/dL Low 3.5-5.2 [facility] Comment on above: Performed By: #### C MPX, CRP, CDP ####[address] , [place] 3922083 lab Director: Samuel Ayers MD Albumin/Glob Ratio 0.8 Low 1.0-2.5 [facility] Comment on above: Performed By: #### C MPX, CRP, CDP ####[address] , [place] 3704183 lab Director: Samuel Ayers MD Alkaline Phos 149 U/L High 35-104 [facility] Comment on above: Performed By: #### C MPX, CRP, CDP ####[address] , [place] 518[address] lab Director: Samuel Ayers MD ALT [Catalytic activity/Vol] 33 U/L Normal 5-33 [facility] Comment on above: Performed By: #### C MPX, CRP, CDP ####[address] , [place] 7526383 lab Director: Samuel Ayers MD Anion gap [Moles/Vol] 7 mmol/L Low 9-17 [facility] Comment on above: Performed By: #### C MPX, CRP, CDP ####[address] , [place] 5398183 lab Director: Samuel Ayers MD AST [Catalytic activity/Vol] 21 U/L Normal <32 [facility] Comment on above: Performed By: #### C MPX, CRP, CDP ####[address] , [place] 3542883 lab Director: Samuel Ayers MD Bilirubin [Mass/Vol] 0.8 mg/dL Normal 0.3-1.2 [facility] Comment on above: Performed By: #### C MPX, CRP, CDP ####[address] , [place] 505[address]83 lab Director: Samuel Ayers MD BUN/CRE Ratio 38 High 9-20 [facility] Comment on above: Performed By: #### C MPX, CRP, CDP ####[address] , [place] 0628983 Lab Director: Samuel Ayers MD Calcium [Mass/Vol] 8.7 mg/dL Normal 8.6-10.4 [facility] Comment on above: Performed By: #### C MPX, CRP, CDP ####[address] , [place] 5617283 lab Director: Samuel Ayers MD Chloride [Moles/Vol] 111 mmol/L High 98-107 [facility] Comment on above: Performed By: #### C MPX, CRP, CDP ####[address] , [place] 6736883 lab Director: Sameul Ayers MD CO2 [Moles/Vol] 21 mmol/L Normal 20-31 [facility] Comment on above: Performed By: #### C MPX, CRP, CDP ####[address] , [place] 2679883 Lab Director: Samuel Ayers MD Creatinine [Mass/Vol] 0.66 mg/dL Normal 0.50-0.90 [facility] Comment on above: Performed By: #### C MPX, CRP, CDP ####[address] , [facility]83 Lab Director: Samuel Ayers MD GFR/1.73 sq M.predicted among non-blacks MDRD (S/P/Bld) [Vol rate/Area] mL/min/{1.73_m2} Normal >60 [facility] Comment on above: Result Comment: Thes e results are not intended for use in patients <18 years of age.eGFR results are calculated without a race factor using the 2020 CKD-EPI equation.Careful clinical correlation is recommended, particularly when comparing to results calculated using previous equations.The CKD-EPI equation is less accurate in patients with extremes of muscle mass, extra-renal metabolism of creatine, excessive creatine ingestion, or following therapy that affects renal tubular secretion. Performed By: #### C MPX, CRP, CDP ####[address] [place] [address] Lab Director: Samuel Ayers MD Glucose [Mass/Vol] 133 mg/dL High 70-99 [facility] Comment on above: Performed By: #### C MPX, CRP, CDP ####[address] [place] [address] Lab Director: Samuel Ayers MD Potassium [Moles/Vol] 4.6 mmol/L Normal 3.7-5.3 [facility] Comment on above: Performed By: #### C MPX, CRP, CDP ####[address] [place] [address] Lab Director: Samuel Ayers MD Protein [Mass/Vol] 6.8 g/dL Normal 6.4-8.3 [facility] Comment on above: Performed By: #### C MPX, CRP, CDP ####[address] [place] [address] Lab Director: Samuel Ayers MD Sodium [Moles/Vol] 139 mmol/L Normal 135-144 [facility] Comment on above: Performed By: #### C MPX, CRP, CDP ####[address] [place] [address] Lab Director: Samuel Ayers MD Urea nitrogen [Mass/Vol] 25 mg/dL High 6-20 [facility] Comment on above: Performed By: #### C MPX, CRP, CDP ####[address] [place] [address] Lab Director: Samuel Ayers MD Resp Viral Panelon 3 Adenovirus Not detected Normal NOTDET [facility] Comment on above: Performed By: #### R STOCK DRIVER ####[facility] [place], [place] [id number])[phone] Director: Ganesh Moyer[address] [place] [address] Lab Director: MD Gómez Russell.parapertussis Not detected Normal [facility] Comment on above: Performed By: #### R STOCK DRIVER ####[facility] [address] [place] [address] Lab Director: Ganesh Moyer[address] [place] [address] Lab Director: Samuel Ayers MD Bordetella pertussis Not detected [facility] Comment on above: Performed By: #### R STOCK DRIVER ####[facility] [address] [id number])[phone] Director: [facility]anesh [facility] [place] [address] Lab Director: Samuel Ayers MD Chlamyd.pneumoniae Not detected [facility] Comment on above: Performed By: #### R STOCK DRIVER ####[facility] [address] [place] [address] Lab Director: Ganesh Moyer[address] [place] [address] Lab Director: Samuel Ayers MD Coronavirus 229E Not detected [facility] Comment on above: Performed By: #### R STOCK DRIVER ####[facility] [address] [place] [address] Lab Director: [facility]h [facility] [place] [address] Lab Director: Samuel Ayers MD Coronavirus HKU1 Not detected [facility] Comment on above: Performed By: #### R STOCK DRIVER ####[facility] [address] [place] [address] Lab Director: Ganesh Moyer[address] [place] [phone] Director: Samuel Ayers MD Coronavirus NL63 Not detected [facility] Comment on above: Performed By: #### R STOCK DRIVER ####[facility] [address] [place] [address] Lab Director: Ganesh Moyer[address] [place] [address] Lab Director: Samuel Ayers MD Coronavirus OC43 Not detected [facility] Comment on above: Performed By: #### R STOCK DRIVER ####[address] [address] Lab Director: Ganesh Moyer[address] [place] [address] Lab Director: Samuel Ayers MD Human Metapneumo Not detected [facility] Comment on above: Performed By: #### R STOCK DRIVER ####[address] [place] [address] Lab Director: Ganesh Moyer[address] [place] [address] Lab Director: Samuel Ayers MD Influenza A Not detected [facility] Comment on above: Performed By: #### R STOCK DRIVER ####[facility] [address] [place] [address] Lab Director: Ganesh [address] [place] [address] Lab Director: Samuel Ayers MD Influenza B Not detected [facility] Comment on above: Performed By: #### R STOCK DRIVER ####[facility] [address] [place] [address] Lab Director: Ganesh Moyer[address] [place] [address] Lab Director: Samuel Ayers MD Mycoplas.pneumoniae Not detected Normal [facility] Comment on above: Result Comment: Perf ormed by multiplexed nucleic acid assay. Performed By: #### R STOCK DRIVER ####[facility] [address] [place] [address] Lab Director: Ganesh Moyer[address] [place] [address] Lab Director: Samuel Ayers MD Parainfluenza 1 Not detected Normal [facility] Comment on above: Performed By: #### R STOCK DRIVER ####[facility] [address] [place] [address] Lab Director: Ganesh Moyer[address] [place] [address] Lab Director: Samuel Ayers MD Parainfluenza 2 Not detected Normal [facility] Comment on above: Performed By: #### R STOCK DRIVER ####[facility] [address] [place], [place] [id number])[phone] Director: Ganesh Moyer[address] [place] [address] Lab Director: Samuel Ayers MD Parainfluenza 3 Not detected Normal [facility] Comment on above: Performed By: #### R STOCK DRIVER ####[facility] [address] [place] [address] Lab Director: Ganesh Moyer[address] [place] [address] Lab Director: Samuel Ayers MD Parainfluenza 4 Not detected Normal [facility] Comment on above: Performed By: #### R STOCK DRIVER ####[address] [place], [place] [id number])[phone] Director: Ganesh [facility] [place] [address] Lab Director: Samuel Ayers MD Resp Syncytial Virus Not detected Normal [facility] Comment on above: Performed By: #### R STOCK DRIVER ####[address] [phone])[phone] Director: Ganesh [address] [place] [address] Lab Director: Samuel Ayers MD Rhino/Enterovirus Not detected Normal [facility] Comment on above: Performed By: #### R STOCK DRIVER ####[address] [id number])[phone] Director: [facility]h [facility] [place] [address] Lab Director: Samuel Ayers MD SARS-CoV-2 (COVID-19) RNA SHAKA+probe Ql (Unsp spec) Not detected Normal [facility] Comment on above: Performed By: #### R STOCK DRIVER ####[address] [phone] Director: Ganesh Moyer[address] [place] [address] Lab Director: Samuel Ayers MD C-Reactive Proteinon 023 CRP [Mass/Vol] 42.3 mg/L High 0.0-5.0 [facility] Comment on above: Performed By: #### C RP ####[address] [place] [address] Lab Director: Samuel Ayers MD CBC with Diffon 02-25-2023 Abs. Basophil 0.03 k/uL Normal 0.00-0.20 [facility] Comment on above: Performed By: #### Catherine Bailey CP, CDP ####[address] , [place] [address])[phone] Director: Samuel Ayers MD Abs.Imm.Granulocyte 0.04 k/uL Normal 0.00-0.30 [facility] Comment on above: Performed By: #### Catherine Bailey CP, CDP ####[address] , [place] [address] Lab Director: Samuel Ayers MD Abs.Neutrophil (Seg) 9.29 k/uL High 1.50-8.10 [facility] Comment on above: Performed By: #### Catherine Bailey CP, CDP ####[address] , [place] [address])[phone] Director: Samuel Ayers MD Basophils/100 WBC (Bld) 0 % Normal 0-2 [facility] Comment on above: Performed By: #### Catherine Bailey CP, CDP ####[address] , [place] [address])[phone] Director: Samuel Ayers MD Eosinophils (Bld) [#/Vol] 0.13 10*3/uL Normal 0.00-0.44 [facility] Comment on above: Performed By: #### Catherine Bailey CP, CDP ####[address] , [facility]83[facility])[phone] Director: Samuel Ayers MD Eosinophils/100 WBC (Bld) 1 % Normal 1-4 [facility] Comment on above: Performed By: #### Catherine aBiley CP, CDP ####[address] [place] [address] Lab Director: Samuel Ayers MD Erythrocyte distribution width (RBC) [Ratio] 14.5 % High 11.8-14.4 [facility] Comment on above: Performed By: #### Catherine Bailey CP, CDP ####[address] , [place] [address])[phone] Director: Samuel Ayers MD Hematocrit (Bld) [Volume fraction] 32.2 % Low 36.3-47.1 [facility] Comment on above: Performed By: #### Catherine Bailey CP, CDP ####[address] , [place] [address])[phone] Director: Samuel Ayers MD Hemoglobin (Bld) [Mass/Vol] 10.1 g/dL Low 11.9-15.1 [facility] Comment on above: Performed By: #### Catherine Bailey CP, CDP ####[address] , [place] [address])[phone] Director: Samuel Ayers MD Immature granulocytes/100 WBC (Bld) 0 % Normal 0 [facility] Comment on above: Performed By: #### Catherine Bailey CP, CDP ####[address] , [place] [address] Lab Director: Samuel Ayers MD Lymphocytes (Bld) [#/Vol] 1.52 10*3/uL Normal 1.10-3.70 [facility] Comment on above: Performed By: #### Catherine Bailey CP, CDP ####[address] , [place] [address])[phone] Director: Samuel Ayers MD Lymphocytes/100 WBC (Bld) 13 % Low 24-43 [facility] Comment on above: Performed By: #### Catherine Bailey CP, CDP ####[address] , [facility]83 Lab Director: Samuel Ayers MD MCH (RBC) [Entitic mass] 26.6 pg Normal 25.2-33.5 [facility] Comment on above: Performed By: #### M G, CP, CDP ####[address] [place] [address] Lab Director: Samuel Ayers MD MCHC (RBC) [Mass/Vol] 31.4 g/dL Normal 28.4-34.8 [facility] Comment on above: Performed By: #### Catherine Bailey CP, CDP ####[address] , [place] [phone] Director: Samuel Ayers MD MCV (RBC) [Entitic vol] 84.7 fL Normal 82.6-102.9 [facility] Comment on above: Performed By: #### Catherine Bailey CP, CDP ####[address] , [place] [phone])[phone] Director: Samuel Ayers MD Monocytes (Bld) [#/Vol] 1.02 10*3/uL Normal 0.10-1.20 [facility] Comment on above: Performed By: #### Catherine Bailey CP, CDP ####[address] [place] [address] Lab Director: Samuel Ayers MD Monocytes/100 WBC (Bld) 9 % Normal 3-12 [facility] Comment on above: Performed By: #### Catherine Bailey CP, CDP ####[address] , [place] [phone])[phone] Director: Samuel Ayers MD Neutrophil (Seg) 77 % High 36-65 [facility] Comment on above: Performed By: #### Catherine Bailey CP, CDP ####[address] [place] [address] Lab Director: Samuel Ayers MD NRBC Automated 0.0 per [address] [facility] Comment on above: Performed By: #### Catherine Bailey CP, CDP ####[address] [place] [phone] Lab Director: Samuel Ayers MD Platelet mean volume (Bld) [Entitic vol] 10.4 fL Normal 8.1-13.5 [facility] Comment on above: Performed By: #### Catherine Bailey CP, CDP ####[address] , [place] [phone])[phone] Director: Samuel Ayers MD Platelets (Bld) [#/Vol] 296 10*3/uL Normal 138-453 [facility] Comment on above: Performed By: #### Catherine Bailey CP, CDP ####[address] [place], [place] [id number])[phone] Director: Samuel Ayers MD RBC (Bld) [#/Vol] 3.80 10*6/uL Low 3.95-5.11 [facility] Comment on above: Performed By: #### Catherine Bailey CP, CDP ####[address] , [facility]83[facility])[phone] Director: Samuel Ayers MD WBC (Bld) [#/Vol] 12.0 10*3/uL High 3.5-11.3 [facility] Comment on above: Performed By: #### Catherine Bailey CP, CDP ####[address] , [facility]83[facility])[phone] Director: Samuel Ayers MD Comp Metabolic Profon 2022 Albumin [Mass/Vol] 3.5 g/dL Normal 3.5-5.2 [facility] Comment on above: Performed By: #### Catherine Bailey CP, CDP ####[address] [place], [place] [phone])[phone] Director: Samuel Ayers MD Albumin/Glob Ratio 0.9 Low 1.0-2.5 [facility] Comment on above: Performed By: #### Catherine Bailey CP, CDP ####[address] 7447883 Lab Director: Samuel Ayers MD Alkaline Phos 174 U/L High 35-104 [facility] Comment on above: Performed By: #### Catherine Bailey CP, CDP ####[address] , [place] 1624583 Lab Director: Samuel Ayers MD ALT [Catalytic activity/Vol] 39 U/L High 5-33 [facility] Comment on above: Performed By: #### Catherine Bailey CP, CDP ####[address] , [place] 0798583 Lab Director: Samuel Ayers MD Anion gap [Moles/Vol] 8 mmol/L Low 9-17 [facility] Comment on above: Performed By: #### Catherine Bailey CP, CDP ####[address] , [place] 0385383 Lab Director: Samuel Ayers MD AST [Catalytic activity/Vol] 29 U/L Normal <32 [facility] Comment on above: Performed By: #### Catherine Bailey CP, CDP ####[address] [place] [address] Lab Director: Samuel Ayers MD Bilirubin [Mass/Vol] 0.7 mg/dL Normal 0.3-1.2 [facility] Comment on above: Performed By: #### Catherine Bailey CP, CDP ####[address] [place] [address] Lab Director: Samuel Ayers MD BUN/CRE Ratio 28 High 9-20 [facility] Comment on above: Performed By: #### Catherine Bailey CP, CDP ####[address] , [place] 0353583 Lab Director: Samuel Ayers MD Calcium [Mass/Vol] 9.0 mg/dL Normal 8.6-10.4 [facility] Comment on above: Performed By: #### M TYLER Bailey, CDP ####[facility] [place] , [place] 2237[address] Lab Director: Samuel Ayers MD Chloride [Moles/Vol] 102 mmol/L Normal 98-107 [facility] Comment on above: Performed By: #### M TYLER Bailey, CDP ####[facility] [place] , [place] 3963183 Lab Director: Samuel Ayers MD CO2 [Moles/Vol] 21 mmol/L Normal 20-31 [facility] Comment on above: Performed By: #### Catherine Bailey CP, CDP ####[address] , [place] 8287183 Lab Director: Samuel Ayers MD Creatinine [Mass/Vol] 0.87 mg/dL Normal 0.50-0.90 [facility] Comment on above: Performed By: #### Catherine Bailey CP, CDP ####[address] , [place] [id number] Lab Director: Samuel Ayers MD GFR/1.73 sq M.predicted among non-blacks MDRD (S/P/Bld) [Vol rate/Area] mL/min/{1.73_m2} Normal >60 [facility] Comment on above: Result Comment: Thes e results are not intended for use in patients <18 years of age.eGFR results are calculated without a race factor using the 2020 CKD-EPI equation.Careful clinical correlation is recommended, particularly when comparing to results calculated using previous equations.The CKD-EPI equation is less accurate in patients with extremes of muscle mass, extra-renal metabolism of creatine, excessive creatine ingestion, or following therapy that affects renal tubular secretion. Performed By: #### M TYLER Bailey, CDP ####[facility] [place] , [place] 4382783 Lab Director: Samuel Ayers MD Glucose [Mass/Vol] 76 mg/dL Normal 70-99 [facility] Comment on above: Performed By: #### Catherine Bailey CP, CDP ####[address] [place] [address] Lab Director: Samuel Ayers MD Potassium [Moles/Vol] 4.5 mmol/L Normal 3.7-5.3 [facility] Comment on above: Performed By: #### Catherine Bailey CP, CDP ####[address] [place] [address] Lab Director: Samuel Ayers MD Protein [Mass/Vol] 7.4 g/dL Normal 6.4-8.3 [facility] Comment on above: Performed By: #### Catherine Bailey CP, CDP ####[address] [place] [address] Lab Director: Samuel Ayers MD Sodium [Moles/Vol] 131 mmol/L Low 135-144 [facility] Comment on above: Performed By: #### Catherine Bailey CP, CDP ####[address] [place] [address] Lab Director: Samuel Ayers MD Urea nitrogen [Mass/Vol] 24 mg/dL High 6-20 [facility] Comment on above: Performed By: #### Catherine Bailey CP, CDP ####[address] [place] [address] Lab Director: Samuel Ayers MD Lactic Acidon 02-25-2023 Lactate [Moles/Vol] 1.1 mmol/L Normal 0.5-2.2 [facility] Comment on above: Performed By: #### L ACTIC ####[address] , [place] [id number] Lab Director: Samuel Ayers MD Magnesiumon 02-25-2023 Magnesium [Mass/Vol] 1.6 mg/dL Normal 1.6-2.6 [facility] Comment on above: Performed By: #### M G, CP, CDP ####[facility] [place] [address] Lab Director: Samuel Ayers MD Resp Viral Panelon Source: .NASOPHARYNGEAL SWAB Normal [facility] Comment on above: Performed By: #### R STOCK DRIVER ####[id number] [place], [place] [id number] lab Director: Ganesh Moyer [address] [place] [address] lab Director: Samuel Ayers MD [id number] 02-25-2023 SARS-CoV-2 (COVID-19) RNA SHAKA+probe Ql (Unsp spec) Not detected Normal NOTDET [facility] Comment on above: Result Comment: Moisesi yvette NAAT: The specimen is NEGATIVE for SARS-CoV-2, the novel coronavirus associated with COVID-19.The ID NOW COVID-19 assay is designed to detect the virus that causes COVID-19 in patients with signs and symptoms of infection who are suspected of COVID-19.An individual without symptoms of COVID-19 and who is not shedding SARS-CoV-2 virus would expect to have a negative (not detected) result in this assay.Negative results should be treated as presumptive and, if inconsistent with clinical signs and symptoms or necessary for patient management,should be tested with an alternative molecular assay. Negative results do not preclude SARS-CoV-2 infection andshould not be used as the sole basis for patient management decisions.Fact sheet for Healthcare Providers: https://www.fda.gov/media/857036/downloadFact sheet for Patients: https://www.fda.gov/media/056419/downloadMethodology: Isothermal Nucleic Acid Amplification Performed By: #### C OVRB ####[address] [place] [address] lab Director: Samuel Ayers MD Thyroid Stim. Horm.on 2022 Thyroid Stim. Horm. 1.00 uIU/mL Normal 0.30-5.00 [facility] Comment on above: Performed By: #### T SH ####[address] , [place] [id number] Lab Director: Samuel Ayers MD Urinalysis w/ Microon 2022 Bacteria 1+ Abnormal NONE [facility] Comment on above: Performed By: #### U AMIC ####[address] , [place] [id number] Lab Director: Samuel Aeyrs MD Bilirubin, SemiQt,Ur Negative Normal NEG [facility] Comment on above: Performed By: #### U AMIC ####[address] , [place] [id number] Lab Director: Samuel Ayers MD Blood, Urine TRACE Abnormal NEG [facility] Comment on above: Performed By: #### U AMIC ####[address] , [place] [id number] Lab Director: Samuel Ayers MD Clarity (U) Clear Normal CLEAR [facility] Comment on above: Performed By: #### U AMIC ####[address] , [place] [id number] Lab Director: Samuel Ayers MD Color (U) Yellow Normal YEL [facility] Comment on above: Performed By: #### U AMIC ####[address] , [place] [id number] Lab Director: Samuel Ayers MD Epithelial cells LM Ql (Urine sed) 0 TO 2 Normal 0-25 [facility] Comment on above: Performed By: #### U AMIC ####[address] , [place] [id number] Lab Director: Samuel Ayers MD Glucose Ql (U) Negative Normal NEG [facility] Comment on above: Performed By: #### U AMIC ####[address] [place] [address] Lab Director: Samuel Ayers MD Ketones Ql (U) Negative Normal NEG [facility] Comment on above: Performed By: #### U AMIC ####[address] [place] [address] Lab Director: Samuel Ayers MD Leukocyte esterase Test strip Ql (U) Negative Normal NEG [facility] Comment on above: Performed By: #### U AMIC ####[address] [place] [address] Lab Director: Samuel Ayers MD Mucus Strands TRACE Abnormal NONE [facility] Comment on above: Performed By: #### U AMIC ####[address] [place] [address] Lab Director: Samuel Ayers MD Nitrite,Ur Negative Normal NEG [facility] Comment on above: Performed By: #### U AMIC ####[address] [place] [address] Lab Director: Samuel Ayers MD PH,Ur 5.5 Normal 5.0-9.0 [facility] Comment on above: Performed By: #### U AMIC ####[address] [place] [address] Lab Director: Samuel Ayers MD Protein Ql (U) Negative Normal NEG [facility] Comment on above: Performed By: #### U AMIC ####[address] [place] [address] Lab Director: Samuel Ayers MD Spec. Brusly,Ur 1.020 Normal 1.010-1.[address] [facility] Comment on above: Performed By: #### U AMIC ####[address] [place] [address] lab Director: Samuel Ayers MD Urine RBC's 0 TO 2 Normal 0-2 [facility] Comment on above: Performed By: #### U AMIC ####[address] , [place] [id number] lab Director: Samuel Ayers MD Urine WBC's 0 TO 2 Normal 0-5 [facility] Comment on above: Performed By: #### U AMIC ####[address] , [facility]83 lab Director: Samuel Ayers MD Urobilinogen,Ur Normal Normal NORM [facility] Comment on above: Performed By: #### U AMIC ####[address] [place] [address] lab Director: Samuel Ayers MD XR CHEST PORTABLEon 02-26-20 XR CHEST PORTABLE Normal [facility] CNNURSEon 02-24-2023 CNNURSE Normal [facility] CNPNon 02-23-2023 CNPN Normal [facility] CNPNon 02-21-2023 CNPN Normal [facility] CNPNon 02-20-2023 CNPN Normal [facility] CBC with Diffon 02-16-2023 Abs. Basophil <0.03 Normal 0.00-0.20 [facility] Comment on above: Performed By: #### L IP CDP, CP ####[address] , [facility]83 lab Director: Samuel Ayers MD Abs. Eosinophil <0.03 Normal 0.00-0.44 [facility] Comment on above: Performed By: #### L IP CDP, CP ####[address] , [place] [id number] lab Director: Samuel Ayers MD Abs.Imm.Granulocyte <0.03 Normal 0.00-0.30 [facility] Comment on above: Performed By: #### L IP, CDP, CP ####[address] [place] [address] Lab Director: Samuel Ayers MD Abs.Neutrophil (Seg) 4.57 k/uL Normal 1.50-8.10 [facility] Comment on above: Performed By: #### L IP, CDP, CP ####[address] [place] [address] Lab Director: Samuel Ayers MD Basophils/100 WBC (Bld) 0 % Normal 0-2 [facility] Comment on above: Performed By: #### L IP, CDP, CP ####[address] , [place] 1557283 Lab Director: Samuel Ayers MD Eosinophils/100 WBC (Bld) 0 % Low 1-4 [facility] Comment on above: Performed By: #### L IP, CDP, CP ####[address] , [facility]83 Lab Director: Samuel Ayers MD Immature granulocytes/100 WBC (Bld) 0 % Normal 0 [facility] Comment on above: Performed By: #### L IP, CDP, CP ####[address] [place] [address] Lab Director: Samuel Ayers MD Lymphocytes (Bld) [#/Vol] 1.35 10*3/uL Normal 1.10-3.70 [facility] Comment on above: Performed By: #### L IP, CDP, CP ####[address] [place] [address] Lab Director: Samuel Ayers MD Lymphocytes/100 WBC (Bld) 20 % Low 24-43 [facility] Comment on above: Performed By: #### L IP, CDP, CP ####[address] [place] [address] Lab Director: Samuel Ayers MD Monocytes (Bld) [#/Vol] 0.67 10*3/uL Normal 0.10-1.20 [facility] Comment on above: Performed By: #### L IP, CDP, CP ####[address] , [place] 3642283 Lab Director: Samuel Ayers MD Monocytes/100 WBC (Bld) 10 % Normal 3-12 [facility] Comment on above: Performed By: #### L IP, CDP, CP ####[address] , [place] [id number] Lab Director: Samuel Ayers MD Neutrophil (Seg) 69 % High 36-65 [facility] Comment on above: Performed By: #### L IP, CDP, CP ####[address] , [facility]83 Lab Director: Samuel Ayers MD Erythrocyte distribution width (RBC) [Ratio] 13.7 % Normal 11.8-14.4 [facility] Comment on above: Performed By: #### L ILANA PÉREZ, CP ####[address] , [facility]83 Lab Director: Samuel Ayers MD Hematocrit (Bld) [Volume fraction] 33.0 % Low 36.3-47.1 [facility] Comment on above: Performed By: #### L IP, CDP, CP ####[address] , [place] 7550783 Lab Director: Samuel Ayers MD Hemoglobin (Bld) [Mass/Vol] 10.8 g/dL Low 11.9-15.1 [facility] Comment on above: Performed By: #### L IP, CDP, CP ####[address] , [place] 6080383 Lab Director: Samuel Ayers MD MCH (RBC) [Entitic mass] 27.2 pg Normal 25.2-33.5 [facility] Comment on above: Performed By: #### L IP CDP, CP ####[address] , [place] 1265083 Lab Director: Samuel Ayers MD MCHC (RBC) [Mass/Vol] 32.7 g/dL Normal 28.4-34.8 [facility] Comment on above: Performed By: #### L ELISA CDP, CP ####[address] , [place] 6046983 lab Director: Samuel Ayers MD MCV (RBC) [Entitic vol] 83.1 fL Normal 82.6-102.9 [facility] Comment on above: Performed By: #### L ELISA CDP, CP ####[address] , [facility]83 lab Director: Samuel Ayers MD NRBC Automated 0.0 per [address] [facility] Comment on above: Performed By: #### L ILANA PÉREZ, CP ####[address] , [facility]83 Lab Director: Samuel Ayers MD Platelet mean volume (Bld) [Entitic vol] 11.6 fL Normal 8.1-13.5 [facility] Comment on above: Performed By: #### L ILANA PÉREZ, CP ####[address] , [facility]83[facility])[phone] Director: Samuel Ayers MD Platelets (Bld) [#/Vol] 176 10*3/uL Normal 138-453 [facility] Comment on above: Performed By: #### L IP CDP, CP ####[address] , [place] 7428183 Lab Director: Samuel Ayers MD RBC (Bld) [#/Vol] 3.97 10*6/uL Normal 3.95-5.11 [facility] Comment on above: Performed By: #### L IP, CDP, CP ####[address] [place] [address] lab Director: Samuel Ayers MD WBC (Bld) [#/Vol] 6.6 10*3/uL Normal 3.5-11.3 [facility] Comment on above: Performed By: #### L IP, CDP, CP ####[address] , [place] [id number] lab Director: Samuel Ayers MD CNPNon 02-16-2023 CNPN Normal [facility] CT ABDOMEN PELVIS WO CONTRAS Ton 02-16-2023 CT ABDOMEN PELVIS WO CONTRAST Normal [facility] Comp Metabolic Profon 2022 Albumin [Mass/Vol] 3.7 g/dL Normal 3.5-5.2 [facility] Comment on above: Performed By: #### L IP, CDP, CP ####[address] , [place] 868[address]83 lab Director: Samuel Ayers MD Albumin/Glob Ratio 1.0 Normal 1.0-2.5 [facility] Comment on above: Performed By: #### L IP, CDP, CP ####[address] , [place] 5528983 lab Director: Samuel Ayers MD Alkaline Phos 192 U/L High 35-104 [facility] Comment on above: Performed By: #### L IP, CDP, CP ####[address] , [place] 210[address]83 lab Director: Samuel Ayers MD ALT [Catalytic activity/Vol] 71 U/L High 5-33 [facility] Comment on above: Performed By: #### L IP, CDP, CP ####[address] , [place] [id number] lab Director: Samuel Ayers MD Anion gap [Moles/Vol] 10 mmol/L Normal 9-17 [facility] Comment on above: Performed By: #### L IP, CDP, CP ####[address] [place] [address] lab Director: Samuel Ayers MD AST [Catalytic activity/Vol] 67 U/L High <32 [facility] Comment on above: Performed By: #### L IP, CDP, CP ####[address] [place] [address] lab Director: Samuel Ayers MD Bilirubin [Mass/Vol] 1.0 mg/dL Normal 0.3-1.2 [facility] Comment on above: Performed By: #### L IP, CDP, CP ####[address] , [place] 496[address]83 lab Director: Samuel Ayers MD BUN/CRE Ratio 27 High 9-20 [facility] Comment on above: Performed By: #### L IP, CDP, CP ####[address] [place] [address] lab Director: Samuel Ayers MD Calcium [Mass/Vol] 9.3 mg/dL Normal 8.6-10.4 [facility] Comment on above: Performed By: #### L IP, CDP, CP ####[address] , [place] 6732683 lab Director: Samuel Ayers MD Chloride [Moles/Vol] 100 mmol/L Normal 98-107 [facility] Comment on above: Performed By: #### L IP, CDP, CP ####[address] [place] [address] lab Director: Samuel Ayers MD CO2 [Moles/Vol] 22 mmol/L Normal 20-31 [facility] Comment on above: Performed By: #### L IP CDP, CP ####[address] [place] [address] Lab Director: Samuel Ayers MD Creatinine [Mass/Vol] 0.78 mg/dL Normal 0.50-0.90 [facility] Comment on above: Performed By: #### L IP, CDP, CP ####[address] [place] [address] Lab Director: Samuel Ayers MD GFR/1.73 sq M.predicted among non-blacks MDRD (S/P/Bld) [Vol rate/Area] mL/min/{1.73_m2} Normal >60 [facility] Comment on above: Result Comment: Thes e results are not intended for use in patients <18 years of age.eGFR results are calculated without a race factor using the 2020 CKD-EPI equation.Careful clinical correlation is recommended, particularly when comparing to results calculated using previous equations.The CKD-EPI equation is less accurate in patients with extremes of muscle mass, extra-renal metabolism of creatine, excessive creatine ingestion, or following therapy that affects renal tubular secretion. Performed By: #### L ILANA PÉREZ, CP ####[address] [place] [address] Lab Director: Samuel Ayers MD Glucose [Mass/Vol] 87 mg/dL Normal 70-99 [facility] Comment on above: Performed By: #### L ILANA PÉREZ, CP ####[address] [place] [address] Lab Director: Samuel Ayers MD Potassium [Moles/Vol] 4.4 mmol/L Normal 3.7-5.3 [facility] Comment on above: Performed By: #### L ELISA CDP, CP ####[address] [place] [address] Lab Director: Samuel Ayers MD Protein [Mass/Vol] 7.5 g/dL Normal 6.4-8.3 [facility] Comment on above: Performed By: #### L IP, CDP, CP ####[address] , [place] 1284983 Lab Director: Samuel Ayers MD Sodium [Moles/Vol] 132 mmol/L Low 135-144 [facility] Comment on above: Performed By: #### L IP, CDP, CP ####[address] [place] [address] Lab Director: Samuel Ayers MD Urea nitrogen [Mass/Vol] 21 mg/dL High 6-20 [facility] Comment on above: Performed By: #### L ELISA, CDP, CP ####[address] , [place] 6551583 Lab Director: Samuel Ayers MD Lactic Acidon 8 Lactate [Moles/Vol] 0.9 mmol/L Normal 0.5-2.2 [facility] Comment on above: Performed By: #### L ACTIC ####[address] [place] [address] Lab Director: Samuel Ayers MD Lipaseon 1 Lipase [Catalytic activity/Vol] 34 U/L Normal 13-60 [facility] Comment on above: Performed By: #### L ILANA PÉREZ, CP ####[address] , [place] 5062383 Lab Director: Samuel Ayers MD Urinalysis, Routineon 2022 Bilirubin, SemiQt,Ur Negative Normal NEG [facility] Comment on above: Performed By: #### U AFREDDYO ####[address] , [place] [id number] Lab Director: Samuel Ayers MD Blood, Urine Negative Normal NEG [facility] Comment on above: Performed By: #### U A UMICAO ####[address] [place] [address] Lab Director: Samuel Ayers MD Clarity (U) Clear Normal CLEAR [facility] Comment on above: Performed By: #### U A, UMICAO ####[address] [place] [address] Lab Director: Samuel Ayers MD Color (U) Yellow Normal YEL [facility] Comment on above: Performed By: #### U A, UMICAO ####[address] [place] [address] Lab Director: Samuel Ayers MD Glucose Ql (U) Negative Normal NEG [facility] Comment on above: Performed By: #### U A, UMICAO ####[address] [place] [address] Lab Director: Samuel Ayers MD Ketones Ql (U) Negative Normal NEG [facility] Comment on above: Performed By: #### U A, UMICAO ####[address] [place] [address] Lab Director: Samuel Ayers MD Leukocyte esterase Test strip Ql (U) Negative Normal NEG [facility] Comment on above: Performed By: #### U A, UMICAO ####[address] [place] [address] Lab Director: Samuel Ayers MD Nitrite,Ur Negative Normal NEG [facility] Comment on above: Performed By: #### U A, UMICAO ####[address] [place] [address] Lab Director: Samuel Ayers MD PH,Ur 6.0 Normal 5.0-9.0 [facility] Comment on above: Performed By: #### U A, UMICAO ####[address] [place] [address] Lab Director: Samuel Ayers MD Protein Ql (U) TRACE Abnormal NEG [facility] Comment on above: Performed By: #### U A, UMICAO ####[address] , [place] 539[address]83 lab Director: Samuel Ayers MD Spec. Brusly,Ur 1.025 High 1.010-1.[address] [facility] Comment on above: Performed By: #### U A, UMICAO ####[address] , [place] 1862583 lab Director: Samuel Ayers MD Urobilinogen,Ur Normal Normal NORM [facility] Comment on above: Performed By: #### U A, UMICAO ####[address] [place] [address] lab Director: Samuel Ayers MD Urinalysis,Microon 3 Bacteria 1+ Abnormal NONE [facility] Comment on above: Performed By: #### U A, UMICAO ####[address] [place] [address] lab Director: Samuel Ayers MD Epithelial cells LM Ql (Urine sed) 0 TO 2 Normal 0-25 [facility] Comment on above: Performed By: #### U A, UMICAO ####[address] [place] [address] Lab Director: Samuel Ayers MD Mucus Strands 3+ Abnormal NONE [facility] Comment on above: Performed By: #### U A, UMICAO ####[address] , [place] 6956283 lab Director: Samuel Ayers MD Urine RBC's 0 TO 2 Normal 0-2 [facility] Comment on above: Performed By: #### U A, UMICAO ####[facility] [place] [address] Lab Director: Samuel Ayers MD Urine WBC's 0 TO 2 Normal 0-5 [facility] Comment on above: Performed By: #### U WSET Allen ####[facility] [place] [address] lab Director: Samuel Ayers MD CNPNon 02-13-2023 CNPN Normal [facility] CBC with Auto Differentialon 02-07-2023 [facility] # [facility].34 [facility] Absolute Immature Granulocyte [facility] Absolute Lymph # 2[facility]20 [facility] Absolute Graham # 0.53 [facility] Basophils (Bld) [#/Vol] 0.05 10*3/uL [facility] Basophils/100 WBC (Bld) 1 % 0 - 2 % [facility] Eosinophils/100 WBC (Bld) 6 % High 1 - 4 % [facility] Hematocrit (Bld) [Volume fraction] 36.5 % 36.3 - 47.1 % [facility] Hemoglobin (Bld) [Mass/Vol] 11.2 g/dL Low 11.9 - 15.1 g/dL [facility] Immature granulocytes/100 WBC (Bld) 0 % 0 [facility] Interpretation and review of laboratory results Abnormal [facility] Lymphocytes/100 WBC (Bld) 37 % 24 - 43 % [facility] MCH (RBC) [Entitic mass] 27.4 pg 25.2 - 33.5 pg [facility] MCHC (RBC) [Mass/Vol] 30.7 g/dL 28.4 - 34.8 g/dL [facility] MCV (RBC) [Entitic vol] 89.2 fL 82.6 - 102.9 fL [facility] Monocytes/100 WBC (Bld) 9 % 3 - 12 % [facility] NRBC Automated 0.0 0.0 per 100 WBC [facility] Platelet distribution width (Bld) [Ratio] 13.4 % 11.8 - 14.4 % [facility] Platelet mean volume (Bld) [Entitic vol] 11.3 fL 8.1 - 13.5 fL [facility] Platelets (Bld) [#/Vol] 322 10*3/uL [facility] RBC (Bld) [#/Vol] 4.09 10*6/uL 3.95 - 5.11 m/uL [facility] Segmented neutrophils/100 WBC (Bld) 47 % 36 - 65 % [facility] Segs Absolute 2.78 [facility] WBC (Bld) [#/Vol] 5.9 10*3/uL [facility] CBC with Diffon 02-07-2023 Abs. Basophil 0.05 k/uL Normal 0.00-0.20 [facility] Comment on above: Performed By: #### P HO, CP, CDP, MG ####[address] [place] [id number] Lab Director: Samuel Ayers MD Abs.Imm.Granulocyte <0.03 Normal 0.00-0.30 [facility] Comment on above: Performed By: #### P HO, CP, CDP, MG ####[address] [place] [id number] Lab Director: Samuel Ayers MD Abs.Neutrophil (Seg) 2.78 k/uL Normal 1.50-8.10 [facility] Comment on above: Performed By: #### P HO, CP, CDP, MG ####[address] , [place] 507[address]83 lab Director: Samuel Ayers MD Basophils/100 WBC (Bld) 1 % Normal 0-2 [facility] Comment on above: Performed By: #### P HO, CP, CDP, MG ####[address] [place], [place] 5[address] Lab Director: Samuel Ayers MD Eosinophils (Bld) [#/Vol] 0.34 10*3/uL Normal 0.00-0.44 [facility] Comment on above: Performed By: #### P HO, CP, CDP, MG ####[address] , [facility]83 Lab Director: Samuel Ayers MD Eosinophils/100 WBC (Bld) 6 % High 1-4 [facility] Comment on above: Performed By: #### P HO, CP, CDP, MG ####[address] , [place] [address] lab Director: Samuel Ayers MD Erythrocyte distribution width (RBC) [Ratio] 13.4 % Normal 11.8-14.4 [facility] Comment on above: Performed By: #### P HO, CP, CDP, MG ####[address] , [place] [address] Lab Director: Samuel Ayers MD Hematocrit (Bld) [Volume fraction] 36.5 % Normal 36.3-47.1 [facility] Comment on above: Performed By: #### P HO, CP, CDP, MG ####[address] , [place] [address] Lab Director: Samuel Ayers MD Hemoglobin (Bld) [Mass/Vol] 11.2 g/dL Low 11.9-15.1 [facility] Comment on above: Performed By: #### P HO, CP, CDP, MG ####[address] , [facility]83 lab Director: Samuel Ayers MD Immature granulocytes/100 WBC (Bld) 0 % Normal 0 [facility] Comment on above: Performed By: #### P HO, CP, CDP, MG ####[address] , [place] [id number] Lab Director: Samuel Ayers MD Lymphocytes (Bld) [#/Vol] 2.20 10*3/uL Normal 1.10-3.70 [facility] Comment on above: Performed By: #### P HO, CP, CDP, MG ####[address] , [facility]93([facility])[phone] Director: Sameul Ayers MD Lymphocytes/100 WBC (Bld) 37 % Normal 24-43 [facility] Comment on above: Performed By: #### P HO, CP, CDP, MG ####[address] , [facility]67([facility])[phone] Director: Samuel Ayers MD MCH (RBC) [Entitic mass] 27.4 pg Normal 25.2-33.5 [facility] Comment on above: Performed By: #### P HO, CP, CDP, MG ####[address] , [facility]04([facility])[phone] Director: Samuel Ayers MD MCHC (RBC) [Mass/Vol] 30.7 g/dL Normal 28.4-34.8 [facility] Comment on above: Performed By: #### P HO, CP, CDP, MG ####[address] , [facility]53([facility])[phone] Director: Samuel Ayers MD MCV (RBC) [Entitic vol] 89.2 fL Normal 82.6-102.9 [facility] Comment on above: Performed By: #### P HO, CP, CDP, MG ####[address] , [facility]95([facility])[phone] Director: Samuel Ayers MD Monocytes (Bld) [#/Vol] 0.53 10*3/uL Normal 0.10-1.20 [facility] Comment on above: Performed By: #### P HO, CP, CDP, MG ####[address] , [facility]83 Lab Director: Samuel Ayers MD Monocytes/100 WBC (Bld) 9 % Normal 3-12 [facility] Comment on above: Performed By: #### P HO, CP, CDP, MG ####[address] , [place] [id number] Lab Director: Samuel Ayers MD Neutrophil (Seg) 47 % Normal 36-65 [facility] Comment on above: Performed By: #### P HO, CP, CDP, MG ####[address] , [place] 4993483 Lab Director: Samuel Ayers MD NRBC Automated 0.0 per [address] [facility] Comment on above: Performed By: #### P HO, CP, CDP, MG ####[address] , [place] 3651283 Lab Director: Samuel Ayers MD Platelet mean volume (Bld) [Entitic vol] 11.3 fL Normal 8.1-13.5 [facility] Comment on above: Performed By: #### P HO, CP, CDP, MG ####[address] , [place] 3234283 Lab Director: Samuel Ayers MD Platelets (Bld) [#/Vol] 322 10*3/uL Normal 138-453 [facility] Comment on above: Performed By: #### P HO, CP, CDP, MG ####[address] , [place] 4351083 Lab Director: Samuel Ayers MD RBC (Bld) [#/Vol] 4.09 10*6/uL Normal 3.95-5.11 [facility] Comment on above: Performed By: #### P HO, CP, CDP, MG ####[address] , [place] 7619383 Lab Director: Samuel Ayers MD WBC (Bld) [#/Vol] 5.9 10*3/uL Normal 3.5-11.3 [facility] Comment on above: Performed By: #### P HO, CP, CDP, MG ####[address] [place] [address] lab Director: Samuel Ayers MD Comp Metabolic Profon 2022 Albumin [Mass/Vol] 3.7 g/dL Normal 3.5-5.2 [facility] Comment on above: Performed By: #### P HO, CP, CDP, MG ####[address] , [place] [id number] lab Director: Samuel Ayers MD Albumin/Glob Ratio 0.9 Low 1.0-2.5 [facility] Comment on above: Performed By: #### P HO, CP, CDP, MG ####[address] , [place] 7[address] Lab Director: Samuel Ayers MD Alkaline Phos 107 U/L High 35-104 [facility] Comment on above: Performed By: #### P HO, CP, CDP, MG ####[address] , [place] [id number] lab Director: Samuel Ayers MD ALT [Catalytic activity/Vol] 36 U/L High 5-33 [facility] Comment on above: Performed By: #### P HO, CP, CDP, MG ####[address] , [place] [id number] lab Director: Samuel Ayers MD Anion gap [Moles/Vol] 9 mmol/L Normal 9-17 [facility] Comment on above: Performed By: #### P HO, CP, CDP, MG ####[address] [place] [address] lab Director: Samuel Ayers MD AST [Catalytic activity/Vol] 30 U/L Normal <32 [facility] Comment on above: Performed By: #### P HO, CP, CDP, MG ####[address] , [place] 8[address] [facility] Director: Samuel Ayers MD Bilirubin [Mass/Vol] 0.6 mg/dL Normal 0.3-1.2 [facility] Comment on above: Performed By: #### P HO, CP, CDP, MG ####[address] , [facility]83 lab Director: Samuel Ayers MD BUN/CRE Ratio 48 High 9-20 [facility] Comment on above: Performed By: #### P HO, CP, CDP, MG ####[address] , [facility] lab Director: Samuel Ayers MD Calcium [Mass/Vol] 9.9 mg/dL Normal 8.6-10.4 [facility] Comment on above: Performed By: #### P HO, CP, CDP, MG ####[address] , [place] 186[address] lab Director: Samuel Ayers MD Chloride [Moles/Vol] 103 mmol/L Normal 98-107 [facility] Comment on above: Performed By: #### P HO, CP, CDP, MG ####[address] , [place] 0[address] lab Director: Samuel Ayers MD CO2 [Moles/Vol] 28 mmol/L Normal 20-31 [facility] Comment on above: Performed By: #### P HO, CP, CDP, MG ####[address] , [place] [id number] lab Director: Samuel Ayers MD Creatinine [Mass/Vol] 0.77 mg/dL Normal 0.50-0.90 [facility] Comment on above: Performed By: #### P HO, CP, CDP, MG ####[address] [place] [address] Lab Director: Samuel Ayers MD GFR/1.73 sq M.predicted among non-blacks MDRD (S/P/Bld) [Vol rate/Area] mL/min/{1.73_m2} Normal >60 [facility] Comment on above: Result Comment: Thes e results are not intended for use in patients <18 years of age.eGFR results are calculated without a race factor using the 2020 CKD-EPI equation.Careful clinical correlation is recommended, particularly when comparing to results calculated using previous equations.The CKD-EPI equation is less accurate in patients with extremes of muscle mass, extra-renal metabolism of creatine, excessive creatine ingestion, or following therapy that affects renal tubular secretion. Performed By: #### P HO, CP, CDP, MG ####[address] [place] [address] lab Director: Samuel Ayers MD Glucose [Mass/Vol] 117 mg/dL High 70-99 [facility] Comment on above: Performed By: #### P HO, CP, CDP, MG ####[address] [place] [address] lab Director: Samuel Ayers MD Potassium [Moles/Vol] 4.5 mmol/L Normal 3.7-5.3 [facility] Comment on above: Performed By: #### P HO, CP, CDP, MG ####[address] [place] [address] lab Director: Samuel Ayers MD Protein [Mass/Vol] 7.6 g/dL Normal 6.4-8.3 [facility] Comment on above: Performed By: #### P HO, CP, CDP, MG ####[address] [place] [address] lab Director: Samuel Ayers MD Sodium [Moles/Vol] 140 mmol/L Normal 135-144 [facility] Comment on above: Performed By: #### P HO, CP, CDP, MG ####[facility] [place] [address] Lab Director: Samuel Ayers MD Urea nitrogen [Mass/Vol] 37 mg/dL High 6-20 [facility] Comment on above: Performed By: #### P HO, CP, CDP, MG ####[facility] [place] [address] lab Director: Samuel Ayers MD Comprehensive Metabolic Pane [facility] 02-07-2023 Albumin [Mass/Vol] 3.7 g/dL 3.5 - 5.2 g/dL [facility] Albumin/Globulin [Mass ratio] 0.9 {ratio} Low 1.0 - 2.5 [facility] ALP [Catalytic activity/Vol] 107 U/L High 35 - 104 U/L [facility] ALT [Catalytic activity/Vol] 36 U/L High 5 - 33 U/L [facility] Anion gap [Moles/Vol] 9 mmol/L 9 - 17 mmol/L [facility] AST [Catalytic activity/Vol] 30 U/L NINF - 32 U/L [facility] Bilirubin [Mass/Vol] 0.6 mg/dL 0.3 - 1 .2 mg/dL [facility] Calcium [Mass/Vol] 9.9 mg/dL 8.6 - 10. 4 mg/dL [facility] Chloride [Moles/Vol] 103 mmol/L 98 - 10 7 mmol/L [facility] CO2 [Moles/Vol] 28 mmol/L 20 - 31 mmol/L [facility] Creatinine [Mass/Vol] 0.77 mg/dL 0.50 - 0.90 mg/dL [facility] GFR/1.73 sq M.predicted MDRD (S/P/Bld) [Vol rate/Area] - PINF [facility] Comment on above: These results are not intended for use in patients <18 years of age. eGFR results are calculated without a race factor using the 2020 CKD-EPI equation. Careful clinical correlation is recommended, particularly when comparing to results calculated using previous equations. The CKD-EPI equation is less accurate in patients with extremes of muscle mass, extra-renal metabolism of creatine, excessive creatine ingestion, or following therapy that affects renal tubular secretion. Glucose [Mass/Vol] 117 mg/dL High 70 - 99 mg/dL [facility] Interpretation and review of laboratory results Abnormal [facility] Potassium [Moles/Vol] 4.5 mmol/L 3.7 - 5.3 mmol/L [facility] Protein [Mass/Vol] 7.6 g/dL 6.4 - 8.3 g/dL [facility] Sodium [Moles/Vol] 140 mmol/L 135 - 144 mmol/L [facility] Urea nitrogen [Mass/Vol] 37 mg/dL High 6 - 20 mg/dL [facility] Urea nitrogen/Creatinine (Bld) [Mass ratio] 48 High 9 - 20 [facility] Magnesiumon 02-07-2023 Magnesium [Mass/Vol] 1.9 mg/dL Normal 1.6-2.6 [facility] Comment on above: Performed By: #### P HO, CP, CDP, MG ####[facility] [place] [address] [facility] Director: Samuel Ayers MD Magnesium [Mass/Vol] 1.9 mg/dL 1.6 - 2 .6 mg/dL [facility] No Panel Informationon 02-07 [facility] Phosphoruson 02-07-2023 Phosphate [Mass/Vol] 4.0 mg/dL 2.6 - 4 .5 mg/dL [facility] Phosphorus, Inorg.on 023 Phosphorus, Inorg. 4.0 mg/dL Normal 2.6-4.5 [facility] Comment on above: Performed By: #### P HO, CP, CDP, MG ####[facility] [place] [address] lab Director: Samuel Ayers MD CNCKrishna 02-02-2023 CNCO Letter Text Normal [facility] CNPNon 02-01-2023 CNPN Normal [facility] CNPNon 01-31-2023 [facility] Normal [facility] Miscellaneouson 01-26-2023 Send Out Report (NOTE) Normal [facility] Comment on above: Result Comment: Fatt y Acids Profile, Essential Serum or PlasmaInterpretation, Fatty Acids Profile SP See NoteIn this sample the concentration of omega-3 eicosapentaenoicacid (EPA) was elevated most likely reflecting dietarysupplements.INTERPRETIVE INFORMATION: Fatty Acids Profile, EssentialSer/PlasThis test does not screen for disorders of peroxisomalbiogenesis/function.This test was developed and its performance characteristicsdetermined by [facility]. It has not been cleared orapproved by the [place] Food and Drug Administration. This test wasperformed in a CLIA certified laboratory and is intended forclinical purposes.Arachidic Acid, C20:0 18 nmol/mL (Ref Interval: 8-43)Arachidonic Acid, C20:4w6 642 nmol/mL (Ref Interval: 310-1420)DHA, C22:6w3 308 nmol/mL (Ref Interval: 45-365)DPA, C22:5w3 66 nmol/mL (Ref Interval: 13-75)DPA, C22:5w6 15 nmol/mL (Ref Interval: 6-55)DTA, C22:4w6 13 nmol/mL (Ref Interval: 10-40)Docosenoic Acid, C22:1 5 nmol/mL (Ref Interval: 1-10)EPA, C20:5w3 222 nmol/mL H (Ref Interval: 8-130)Hexadecenoic Acid, C16:1w9 41 nmol/mL (Ref Interval: 14-95)Lauric Acid, C12:0 5 nmol/mL (Ref Interval: 1-200)Linoleic Acid, C18:2w6 1487 nmol/mL (Ref Interval: 4414-5096)a-Linolenic Acid, C18:3w3 36 nmol/mL (Ref Interval: 20-200)c-g-Npqbetlwt C20:3w6 111 nmol/mL (Ref Interval: 45-340)g-Linolenic Acid, C18:3w6 52 nmol/mL (Ref Interval: 10-120)[place] Acid, C20:3w9 10 nmol/mL (Ref Interval: 1-35)Myristic Acid, C14:0 90 nmol/mL (Ref Interval: 20-520)Nervonic Acid, C24:1w9 97 nmol/mL (Ref Interval: 35-145)Oleic Acid, C18:1w9 2007 nmol/mL (Ref Interval: 740-3900)Palmitic Acid, C16:0 2564 nmol/mL (Ref Interval: 4869-4972)Palmitoleic Acid, C16:1w7 383 nmol/mL (Ref Interval: 35-580)Stearic Acid, C18:0 585 nmol/mL (Ref Interval: 280-1250)Vaccenic Acid, C18:1w7 206 nmol/mL (Ref Interval: 50-250)Triene Tetraene Ratio 0.016 (Ref Interval: 0.004-0.051)Total Saturated Acid 3.3 mmol/L (Ref Interval: 1.5-5.3)Total Monounsaturated Acid 2.7 mmol/L (Ref Interval: 0.9-4.7)Total Polyunsaturated Acid 3.0 mmol/L (Ref Interval: 2.1-6.2)Total w3 0.63 mmol/L H (Ref Interval: 0.12-0.55)Total w6 2.3 mmol/L (Ref Interval: 1.8-5.7)Total Fatty Acids 9.0 mmol/L (Ref Interval: 4.5-15.0)EER Fatty Acids Profile, Essential SP See NoteAuthorized individuals can access the [facility] Report using the following link:[email or web address] Performed By: #### C MIS ####[address] [place] [address] lab Director: Samuel Ayers MD Drug Scr, Abuse, Uron 2022 Amphetamine(s),Ur Negative Normal [facility] Comment on above: Result Comment: (Pos itive cutoff 1000 ng/mL) Performed By: #### D AU ####[facility] [place] [address] lab Director: Samuel Ayers MD Barbiturate(s),Ur Negative Normal [facility] Comment on above: Result Comment: (Pos itive cutoff 200 ng/mL) Performed By: #### D AU ####[address] [place] [address] Lab Director: Samuel Ayers MD Benzodiazepine(s) Negative Normal [facility] Comment on above: Result Comment: (Pos itive cutoff 200 ng/mL) Performed By: #### D AU ####[address] , [place] [id number] Lab Director: Samuel Ayers MD Buprenorphrine, Ur Negative Normal [facility] Comment on above: Result Comment: (Pos itive cutoff 5 ng/ml) Performed By: #### D AU ####[address] [place], [place] [address] Lab Director: Samuel Ayers MD Cannabinoid(s),Ur Positive Abnormal [facility] Comment on above: Result Comment: (Pos itive cutoff 50 ng/mL) Performed By: #### D AU ####[address] [place] [address] Lab Director: Samuel Ayers MD Cocaine Metabolite Negative Normal [facility] Comment on above: Result Comment: (Pos itive cutoff 300 ng/mL) Performed By: #### D AU ####[address] [place] [address] lab Director: Samuel Ayers MD Fentanyl, Urine Negative Normal [facility] Comment on above: Result Comment: (Pos itive cutoff 5 ng/ml) Performed By: #### D AU ####[address] [place], [place] [address] Lab Director: Samuel Ayers MD Interpretive Info Assay provides medic al screening only. The absence of expected drug(s) and/or Normal [facility] Comment on above: Result Comment: meta bolite(s) may indicate diluted or adulterated urine, limitations of testing or timing of collection.Testing for legal purposes should be confirmed by another method. To request confirmation of test result, please call the lab within 7 days of sample submission. Performed By: #### D AU ####[address] , [place] [id number] Lab Director: Samuel Ayers MD Methadone Ql (U) Negative Normal [facility] Comment on above: Result Comment: (Pos itive cutoff 300 ng/mL) Performed By: #### D AU ####[address] [place] [address] Lab Director: Samuel Ayers MD Opiate(s), Ur Positive Abnormal [facility] Comment on above: Result Comment: (Pos itive cutoff 300 ng/mL) Performed By: #### D AU ####[address] [place] [address] Lab Director: Samuel Ayers MD Oxycodone, Urine Negative Normal [facility] Comment on above: Result Comment: (Pos itive cutoff 100 ng/mL) Performed By: #### D AU ####[address] [place] [address] Lab Director: Samuel Ayers MD Phencyclidine, Ur Negative Normal [facility] Comment on above: Result Comment: (Pos itive cutoff 25 ng/mL) Performed By: #### D AU ####[address] [place] [address] Lab Director: Samuel Ayers MD Urine Drug Screenon 01-26-20 Amphetamine Screen, Ur Negative NEGATIVE [facility] Comment on above: (Positive cutoff 1000 ng/mL) Barbiturate Screen, Ur Negative NEGATIVE [facility] Comment on above: (Positive cutoff 200 ng/mL) Benzodiazepine Screen, Urine Negative NEGATIVE [facility] Comment on above: (Positive cutoff 200 ng/mL) Buprenorphine Urine Negative NEGATIVE [facility] Comment on above: (Positive cutoff 5 ng/ml) Cannabinoid Scrn, Ur Positive Abnormal NEGATIVE [facility] Comment on above: (Positive cutoff 50 ng/mL) Cocaine Metabolite, Urine Negative NEGATIVE [facility] Comment on above: (Positive cutoff 300 ng/mL) Fentanyl, Ur Negative NEGATIVE [facility] Comment on above: (Positive cutoff 5 ng/ml) Interpretation and review of laboratory results Abnormal [facility] Methadone Screen, Urine Negative NEGATIVE [facility] Comment on above: (Positive cutoff 300 ng/mL) Opiates, Urine Positive Abnormal NEGATIVE [facility] Comment on above: (Positive cutoff 300 ng/mL) Oxycodone Screen, Ur Negative NEGATIVE [facility] Comment on above: (Positive cutoff 100 ng/mL) Phencyclidine, Urine Negative NEGATIVE [facility] Comment on above: (Positive cutoff 25 ng/mL) Test Information Assay provides medic al screening only. The absence of expected drug(s) and/or metabolite(s) may indicate diluted or adulterated urine, limitations of testing or timing of collection. [facility] Comment on above: Testing for legal pu rposes should be confirmed by another method. To request confirmation of test result, please call the lab within 7 days of sample submission. [facility] Vitamin D 25 Hydroxyon 01-25 25-hydroxyvitamin D3 [Mass/Vol] 39.4 ng/mL 29.9 - PINF ng/mL [facility] Comment on above: Reference Range: Vitamin D status Range Deficiency <20 ng/mL Mild Deficiency 20-30 ng/mL Sufficiency 30-100 ng/mL Toxicity >100 ng/mL [facility] Vitamin D 25 OHon 01-25-2023 Vitamin D 25 OH 39.4 ng/mL Normal >29.9 [facility] Comment on above: Result Comment: Refe rence Range:Vitamin D status Range Deficiency <20 ng/mL Mild Deficiency 20-30 ng/mL Sufficiency 30-100 ng/mL Toxicity >100 ng/mL Performed By: #### V D25 ####[facility] [place] 7500[address] Lab Director: Ganesh Moyer MD Vitamin B1on 01-22-2023 Vitamin B1 237 nmol/L High 70-180 [facility] Comment on above: Result Comment: (NOT E)INTERPRETIVE INFORMATION: Vitamin B1, Whole BloodThis assay measures the concentration of thiamine diphosphate(TDP), the primary active form of vitamin B1. Approximately 90percent of vitamin B1 present in whole blood is TDP. Thiamine andthiamine monophosphate, which comprise the remaining 10 percent,are not measured.This test was developed and its performance characteristicsdetermined by [facility]. It has not been cleared orapproved by the [place] Food and Drug Administration. This test wasperformed in a CLIA certified laboratory and is intended forclinical purposes.Performed By: [facility] [place] [id number] Director: Kyle Ledesma MD, PhD Performed By: #### A VITB1, AVITB6 ####[address] [address] Lab Director: Alfonso Perez MD#### CP, MG, ANURADHA, CDP ####[facility] [place] [address] Lab Director: Samuel Ayers MD#### FOL, TRIG ####[facility] [place], [place] 5950[address] lab Director: Ganesh Moyer MD Vitamin B6on 01-22-2023 Vitamin B6 151.6 nmol/L High 20.0-125.0 [facility] Comment on above: Result Comment: (NOT E)INTERPRETIVE INFORMATION: Vitamin B6 (Pyridoxal 5-Phosphate)Pyridoxal 5'-phosphate measured in a specimen collected followingan 8-hour or overnight fast accurately indicates vitamin Z3txeqsilyzjs status. Non-fasting specimen concentration reflectsrecent vitamin intake.This test was developed and its performance characteristicsdetermined by [facility]. It has not been cleared orapproved by the [place] Food and Drug Administration. This test wasperformed in a CLIA certified laboratory and is intended forclinical purposes.Performed By: [facility] [place] [id number] Director: Kyle Ledesma MD, PhD Performed By: #### A VITB1, AVITB6 ####[facility] [address] [place] [address] Lab Director: Alfonso Perez MD#### CP, MG, ANURADHA, CDP ####[address] [place], [place] [address] Lab Director: Samuel Ayers MD#### FOL, TRIG ####[facility] [address] [place], [place] [address]24[address] Lab Director: Ganesh Moyer MD Folic Acidon 940 Folic Acid 15.9 ng/mL Normal >4.8 [facility] Comment on above: Performed By: #### A VITB1, AVITB6 ####[facility] [address] [place] [id number] Lab Director: Alfonso Perez MD#### CP, MG, ANURADHA, CDP ####[address] [place], [place] [address] Lab Director: Samuel Ayers MD#### FOL, TRIG ####[place] [address] [place], [place] 3467[address] Lab Director: Ganesh Moyer MD Triglycerideson 759 Triglyceride [Mass/Vol] 99 mg/dL Normal <150 [facility] Comment on above: Result Comment: Trig lyceride Guidelines: <150 Desirable 150- 199 Borderline 200-499 High >499 Very high Based on AHA Guidelines for fasting triglyceride, July 2012. Performed By: #### A VITB1, AVITB6 ####[facility] [address] [place] [address] Lab Director: Alfonso Perez MD#### CP, MG, ANURADHA, CDP ####[address] [place] [address] Lab Director: Samuel Ayers MD#### FOL, TRIG ####[facility] [address] [place] [address] lab Director: Ganesh Moyer MD CBC with Auto Differentialon 01-18-2023 Absolute Eos # 0.33 [facility] Absolute Immature Granulocyte [facility] Absolute Lymph # 2.31 [facility] Absolute Graham # 0.72 [facility] Basophils (Bld) [#/Vol] 0.06 10*3/uL [facility] Basophils/100 WBC (Bld) 1 % 0 - 2 % [facility] Eosinophils/100 WBC (Bld) 5 % High 1 - 4 % [facility] Hematocrit (Bld) [Volume fraction] 34.6 % Low 36.3 - 47.1 % [facility] Hemoglobin (Bld) [Mass/Vol] 10.6 g/dL Low 11.9 - 15.1 g/dL [facility] Immature granulocytes/100 WBC (Bld) 0 % 0 [facility] Interpretation and review of laboratory results Abnormal [facility] Lymphocytes/100 WBC (Bld) 36 % 24 - 43 % [facility] MCH (RBC) [Entitic mass] 27.7 pg 25.2 - 33.5 pg [facility] MCHC (RBC) [Mass/Vol] 30.6 g/dL 28.4 - 34.8 g/dL [facility] MCV (RBC) [Entitic vol] 90.6 fL 82.6 - 102.9 fL [facility] Monocytes/100 WBC (Bld) 11 % 3 - 12 % [facility] NRBC Automated 0.0 0.0 per 100 WBC [facility] Platelet distribution width (Bld) [Ratio] 13.5 % 11.8 - 14.4 % [facility] Platelet mean volume (Bld) [Entitic vol] 11.7 fL 8.1 - 13.5 fL [facility] Platelets (Bld) [#/Vol] 254 10*3/uL [facility] RBC (Bld) [#/Vol] 3.82 10*6/uL Low 3.95 - 5.11 m/uL [facility] Segmented neutrophils/100 WBC (Bld) 47 % 36 - 65 % [facility] Segs Absolute 2.97 [facility] WBC (Bld) [#/Vol] 6.4 10*3/uL [facility] CBC with Diffon 01-18-2023 Abs. Basophil 0.06 k/uL Normal 0.00-0.20 [facility] Comment on above: Performed By: #### A VITB1, AVITB6 ####[facility] [address] [place] [address] Lab Director: Alfonso Perez MD#### CP, MG, ANURADHA, CDP ####[address] [place] [address] Lab Director: Saumel Ayers MD#### FOL, TRIG ####[place] [address] Lab Director: Ganesh Moyer MD Abs.Imm.Granulocyte <0.03 Normal 0.00-0.30 [facility] Comment on above: Performed By: #### A VITB1, AVITB6 ####[facility] [address] [place] [address] Lab Director: Alfonso Perez MD#### CP, MG, ANURADHA, CDP ####[address] [place] [id number] Lab Director: Samuel Ayers MD#### FOL, TRIG ####[facility] [address] [place], [place] [address] Lab Director: Ganesh Moyer MD Abs.Neutrophil (Seg) 2.97 k/uL Normal 1.50-8.10 [facility] Comment on above: Performed By: #### A VITB1, AVITB6 ####[facility] [address] [place] [address] Lab Director: Alfonso Perez MD#### CP, MG, ANURADHA, CDP ####[address] [place], [place] [address] Lab Director: Samuel Ayers MD#### FOL, TRIG ####[address] [address] Lab Director: Ganesh Moyer MD Basophils/100 WBC (Bld) 1 % Normal 0-2 [facility] Comment on above: Performed By: #### A VITB1, AVITB6 ####[facility] [address] [place], [place] [id number] Lab Director: Alfonso Perez MD#### CP, MG, ANURADHA, CDP ####[address] [place], [place] [address] Lab Director: Samuel Ayers MD#### FOL, TRIG ####[address] [address] Lab Director: Ganesh Moyer MD Eosinophils (Bld) [#/Vol] 0.33 10*3/uL Normal 0.00-0.44 [facility] Comment on above: Performed By: #### A VITB1, AVITB6 ####[facility] [address] [place] [id number] Lab Director: Alfonso Perez MD#### CP, MG, ANURADHA, CDP ####[address] [place], [place] [address] Lab Director: Samuel Ayers MD#### FOL, TRIG ####[facility] [address] [place] [address] Lab Director: Ganesh Moyer MD Eosinophils/100 WBC (Bld) 5 % High 1-4 [facility] Comment on above: Performed By: #### A VITB1, AVITB6 ####[facility] [address] [place] [address] Lab Director: Alfonso Perez MD#### CP, MG, ANURADHA, CDP ####[address] [place], [place] [address] Lab Director: Samuel Ayers MD#### FOL, TRIG ####[place] [address] [place], [place] 3405[address] Lab Director: Ganesh Moyer MD Erythrocyte distribution width (RBC) [Ratio] 13.5 % Normal 11.8-14.4 [facility] Comment on above: Performed By: #### A VITB1, AVITB6 ####[facility] [address] [place] [address] Lab Director: Alfonso Perez MD#### CP, MG, ANURADHA, CDP ####[address] [place] [id number] Lab Director: Samuel Ayers MD#### FOL, TRIG ####[address] [address] Lab Director: Ganesh Moyer MD Hematocrit (Bld) [Volume fraction] 34.6 % Low 36.3-47.1 [facility] Comment on above: Performed By: #### A VITB1, AVITB6 ####[facility] [address] [place] [address] Lab Director: Alfonso Perez MD#### CP, MG, ANURADHA, CDP ####[address] [place], [place] [address] Lab Director: Samuel Ayers MD#### FOL, TRIG ####[facility] [address] [place] [address] Lab Director: Ganesh Moyer MD Hemoglobin (Bld) [Mass/Vol] 10.6 g/dL Low 11.9-15.1 [facility] Comment on above: Performed By: #### A VITB1, AVITB6 ####[facility] [address] [place] [address] Lab Director: Alfonso Perez MD#### CP, MG, ANURADHA, CDP ####[address] [place], [place] [address]83 Lab Director: Samuel Ayers MD#### FOL, TRIG ####[facility] [address] [place] [address] Lab Director: Ganesh Moyer MD Immature granulocytes/100 WBC (Bld) 0 % Normal 0 [facility] Comment on above: Performed By: #### A VITB1, AVITB6 ####[facility] [address] [place] [address] Lab Director: Alfonso Perez MD#### CP, MG, ANURADHA, CDP ####[address] [place] [id number] Lab Director: Samuel Ayers MD#### FOL, TRIG ####[place] [address] [place] [address] Lab Director: Ganesh Moyer MD Lymphocytes (Bld) [#/Vol] 2.31 10*3/uL Normal 1.10-3.70 [facility] Comment on above: Performed By: #### A VITB1, AVITB6 ####[facility] [address] [place] [address] Lab Director: Alfonso Perez MD#### CP, MG, ANURADHA, CDP ####[address] [place], [place] [id number] Lab Director: Samuel Ayers MD#### FOL, TRIG ####[facility] Frzermgtlsmw4979 [place] [address] Lab Director: Ganesh Moyer MD Lymphocytes/100 WBC (Bld) 36 % Normal 24-43 [facility] Comment on above: Performed By: #### A VITB1, AVITB6 ####[facility] Hgrujrrzlexk254 [place] [address] Lab Director: Alfonso Perez MD#### CP, MG, ANURADHA, CDP ####[address] [place], [place] 6907983 Lab Director: Samuel Ayers MD#### FOL, TRIG ####[facility] Nbrspzxifwsh4438 [place] [address] Lab Director: Ganesh Moyer MD MCH (RBC) [Entitic mass] 27.7 pg Normal 25.2-33.5 [facility] Comment on above: Performed By: #### A VITB1, AVITB6 ####[facility] [address] [place] [address] Lab Director: Alfonso Perez MD#### CP, MG, ANURADHA, CDP ####[address] [place], [place] 6351583 Lab Director: Samuel Ayers MD#### FOL, TRIG ####[facility] [place] [address] Lab Director: Ganesh Moyer MD MCHC (RBC) [Mass/Vol] 30.6 g/dL Normal 28.4-34.8 [facility] Comment on above: Performed By: #### A VITB1, AVITB6 ####[facility] Dlicsrihkqyo838 [place] [address] Lab Director: Alfonso Perez MD#### CP, MG, ANURADHA, CDP ####[address] [place], [place] 053[address]83 Lab Director: Samuel Ayers MD#### FOL, TRIG ####[facility] [place] [address] Lab Director: Ganesh Moyer MD MCV (RBC) [Entitic vol] 90.6 fL Normal 82.6-102.9 [facility] Comment on above: Performed By: #### A VITB1, AVITB6 ####[facility] Fciozcuxjloq585 [place] [address] Lab Director: Alfonso Perez MD#### CP, MG, ANURADHA, CDP ####[address] [place], [place] 0638283 Lab Director: Samuel Ayers MD#### FOL, TRIG ####[place] [address] [place], [place] 2393708 Lab Director: Ganesh Moyer MD Monocytes (Bld) [#/Vol] 0.72 10*3/uL Normal 0.10-1.20 [facility] Comment on above: Performed By: #### A VITB1, AVITB6 ####[facility] Paouyrwgbuhk434 [place] [address] Lab Director: Alfonso Perez MD#### CP, MG, ANURADHA, CDP ####[address] [place], [place] 0253283 Lab Director: Samuel Ayers MD#### FOL, TRIG ####[address] 0347808 Lab Director: Ganesh Moyer MD Monocytes/100 WBC (Bld) 11 % Normal 3-12 [facility] Comment on above: Performed By: #### A VITB1, AVITB6 ####[facility] Bgjodarexpso194 [place] [address] Lab Director: Alfonso Perez MD#### CP, MG, ANURADHA, CDP ####[address] [place], [place] 5247883 Lab Director: Samuel Ayers MD#### FOL, TRIG ####[address] [place] [address] Lab Director: Ganesh Moyer MD Neutrophil (Seg) 47 % Normal 36-65 [facility] Comment on above: Performed By: #### A VITB1, AVITB6 ####[facility] Bdqelbkqrkfp449 [place], [place] [id number] Lab Director: Alfonso Perez MD#### CP, MG, ANURADHA, CDP ####[address] [place], [place] 0288883 Lab Director: Samuel Ayers MD#### FOL, TRIG ####[facility]2222 [place] [address] Lab Director: Ganesh Moyer MD NRBC Automated 0.0 per [address] [facility] Comment on above: Performed By: #### A VITB1, AVITB6 ####[facility] Gxjfjmcgyxvo073 [place] [address] Lab Director: Alfonso Perez MD#### CP, MG, ANURADHA, CDP ####[address] [place], [place] 5998883 Lab Director: Samuel Ayers MD#### FOL, TRIG ####[address] [address] Lab Director: Ganesh Moyer MD Platelet mean volume (Bld) [Entitic vol] 11.7 fL Normal 8.1-13.5 [facility] Comment on above: Performed By: #### A VITB1, AVITB6 ####[facility] [address]ot[address]oygitjsd299 [place] [address] Lab Director: Alfonso Perez MD#### CP, MG, ANURADHA, CDP ####[address] [place], [place] 0106283 Lab Director: Samuel Ayers MD#### FOL, TRIG ####[address] [place] [address] Lab Director: Ganesh Moyer MD Platelets (Bld) [#/Vol] 254 10*3/uL Normal 138-453 [facility] Comment on above: Performed By: #### A VITB1, AVITB6 ####[facility] Imqlidlsxubw961 [place] [address] Lab Director: Alfonso Perez MD#### CP, MG, ANURADHA, CDP ####[address] [place], [place] 4562483 Lab Director: Samuel Ayers MD#### FOL, TRIG ####[facility] Nojsfrsrumyh7602 [place] [address] Lab Director: Ganesh Moyer MD RBC (Bld) [#/Vol] 3.82 10*6/uL Low 3.95-5.11 [facility] Comment on above: Performed By: #### A VITB1, AVITB6 ####[facility] Xftlwalcmzsk735 [place] [address] Lab Director: Alfonso Perez MD#### CP, MG, ANURADHA, CDP ####[address] [place] [address] Lab Director: Samuel Ayers MD#### FOL, TRIG ####[facility] Jywagqhgylto7505 [place] [address] Lab Director: Ganesh Moyer MD WBC (Bld) [#/Vol] 6.4 10*3/uL Normal 3.5-11.3 [facility] Comment on above: Performed By: #### A VITB1, AVITB6 ####[facility] Qpmsftfjdrhp145 [place], [place] [id number])[phone] Director: Alfonso Perez MD#### CP, MG, ANURADHA, CDP ####[address] 9781683 Lab Director: Samuel Ayers MD#### FOL, TRIG ####[facility] Tkmskifigmlc9663 [place], [place] 0239208 Lab Director: Ganesh Moyer MD Comp Metabolic Profon 2022 Albumin [Mass/Vol] 3.3 g/dL Low 3.5-5.2 [facility] Comment on above: Performed By: #### A VITB1, AVITB6 ####[facility] Mdcckejsfbxq087 [place] [address] Lab Director: Alfonso Perez MD#### CP, MG, ANURADHA, CDP ####[address] [place] [address] Lab Director: Samuel Ayers MD#### FOL, TRIG ####[facility] Kujvhjkhlxmz6443 [place] [address] Lab Director: Ganesh Moyer MD Albumin/Glob Ratio 0.9 Low 1.0-2.5 [facility] Comment on above: Performed By: #### A VITB1, AVITB6 ####[facility] [address] [place] [address] [id number] Lab Director: Alfonso Perez MD#### CP, MG, ANURADHA, CDP ####[address] [place], [place] 8879783 Lab Director: Samuel Ayers MD#### FOL, TRIG ####[facility] Smtxyrodfxua1038 [place], [place] 3153908 Lab Director: Ganesh Moyer MD Alkaline Phos 86 U/L Normal 35-104 [facility] Comment on above: Performed By: #### A VITB1, AVITB6 ####[facility] Eegsxrykbipo482 [place] [address] Lab Director: Alfonso Perez MD#### CP, MG, ANURADHA, CDP ####[address] , [place] 6775383 Lab Director: Samuel Ayers MD#### FOL, TRIG ####[place] [address] [place], [place] 3817008 Lab Director: Ganesh Moyer MD ALT [Catalytic activity/Vol] 19 U/L Normal 5-33 [facility] Comment on above: Performed By: #### A VITB1, AVITB6 ####[facility] Kfargqyxqcxn755 [place] [address] Lab Director: Alfonso Perez MD#### CP, MG, ANURADHA, CDP ####[address] [place], [place] 0748383 lab Director: Samuel Ayers MD#### FOL, TRIG ####[address] 0603608 Lab Director: Ganesh Moyer MD Anion gap [Moles/Vol] 9 mmol/L Normal 9-17 [facility] Comment on above: Performed By: #### A VITB1, AVITB6 ####[facility] [address] [place] [address] 24055108 Lab Director: Alfonso Perez MD#### CP, MG, ANURADHA, CDP ####[address] , [place] 1987983 Lab Director: Samuel Ayers MD#### FOL, TRIG ####[address] [address] Lab Director: Ganesh Moyer MD AST [Catalytic activity/Vol] 20 U/L Normal <32 [facility] Comment on above: Performed By: #### A VITB1, AVITB6 ####[facility] Tnpwrufxdqaf381 [place], [place] 57568108 Lab Director: Alfonso Perez MD#### CP, MG, ANURADHA, CDP ####[address] , [place] 0511983 Lab Director: Samuel Ayers MD#### FOL, TRIG ####[facility] [place] [address] Lab Director: Ganesh Moyer MD Bilirubin [Mass/Vol] 0.7 mg/dL Normal 0.3-1.2 [facility] Comment on above: Performed By: #### A VITB1, AVITB6 ####[facility] Pjqlulznwndu151 [place] [address] Lab Director: Alfonso Perez MD#### CP, MG, ANURADHA, CDP ####[address] [place], [place] 3135283 Lab Director: Samuel Ayers MD#### FOL, TRIG ####[facility] [address] [place] [address] Lab Director: Ganesh Moyer MD BUN/CRE Ratio 58 High 9-20 [facility] Comment on above: Performed By: #### A VITB1, AVITB6 ####[facility] [address] [place] [address] Lab Director: Alfonso Perez MD#### CP, MG, ANURADHA, CDP ####[address] , [place] 5690283 Lab Director: Samuel Ayers MD#### FOL, TRIG ####[facility] Iryrzcpwvzzv6791 [place] [address] Lab Director: Ganesh Moyer MD Calcium [Mass/Vol] 9.4 mg/dL Normal 8.6-10.4 [facility] Comment on above: Performed By: #### A VITB1, AVITB6 ####[facility] Qepviwcijzzu614 [place], [place] 36344[address] Lab Director: Alfonso Perez MD#### CP, MG, ANURADHA, CDP ####[address] , [place] 7689983 Lab Director: Samuel Ayers MD#### FOL, TRIG ####[address] [place] [address] Lab Director: Ganesh Moyer MD Chloride [Moles/Vol] 103 mmol/L Normal 98-107 [facility] Comment on above: Performed By: #### A VITB1, AVITB6 ####[facility] [address] [place] [address] Lab Director: Alfonso Perez MD#### CP, MG, ANURADHA, CDP ####[address] [place], [place] 9282083 Lab Director: Samuel Ayers MD#### FOL, TRIG ####[address] [address] Lab Director: Ganesh Moyer MD CO2 [Moles/Vol] 29 mmol/L Normal 20-31 [facility] Comment on above: Performed By: #### A VITB1, AVITB6 ####[facility] [address] [place] [address] Lab Director: Alfonso Perez MD#### CP, MG, ANURADHA, CDP ####[address] , [place] 9365983 Lab Director: Samuel Ayers MD#### FOL, TRIG ####[address] [address] Lab Director: Ganesh Moyer MD Creatinine [Mass/Vol] 0.78 mg/dL Normal 0.50-0.90 [facility] Comment on above: Performed By: #### A VITB1, AVITB6 ####[facility] [address]btjunvcg490 [place] [address] Lab Director: Alfonso Perez MD#### CP, MG, ANURADHA, CDP ####[address] , [place] 0524983 Lab Director: Samuel Ayers MD#### FOL, TRIG ####[facility]2222 [place], [place] 6456408 Lab Director: Ganesh Moyer MD GFR/1.73 sq M.predicted among non-blacks MDRD (S/P/Bld) [Vol rate/Area] mL/min/{1.73_m2} Normal >60 [facility] Comment on above: Result Comment: Thes e results are not intended for use in patients <18 years of age.eGFR results are calculated without a race factor using the 2020 CKD-EPI equation.Careful clinical correlation is recommended, particularly when comparing to results calculated using previous equations.The CKD-EPI equation is less accurate in patients with extremes of muscle mass, extra-renal metabolism of creatine, excessive creatine ingestion, or following therapy that affects renal tubular secretion. Performed By: #### A VITB1, AVITB6 ####[facility] [address]jgycxoe273 [place], [place] 89214108 Lab Director: Alfonso Perez MD#### CP, MG, ANURADHA, CDP ####[address] , [place] 9870383 Lab Director: Samuel Ayers MD#### FOL, TRIG ####[facility] Lhpefdxblpew2164 [place], [place] 7242108 Lab Director: Ganesh Moyer MD Glucose [Mass/Vol] 108 mg/dL High 70-99 [facility] Comment on above: Performed By: #### A VITB1, AVITB6 ####[facility] Ypkcqdcrkpin139 [place] [address] Lab Director: Alfonso Perez MD#### CP, MG, ANURADHA, CDP ####[address] , [place] 7958883 Lab Director: Samuel Ayers MD#### FOL, TRIG ####[facility] Velk[address]stscya1260 [place], [place] 6463308 Lab Director: Ganesh Moyer MD Potassium [Moles/Vol] 4.4 mmol/L Normal 3.7-5.3 [facility] Comment on above: Performed By: #### A VITB1, AVITB6 ####[facility] Iejpytcjxvft045 [place] [address] Lab Director: Alfonso Perez MD#### CP, MG, ANURADHA, CDP ####[address] [place] [address] Lab Director: Samuel Ayers MD#### FOL, TRIG ####[address] [place] [place] [address] Lab Director: Ganesh Moyer MD Protein [Mass/Vol] 6.8 g/dL Normal 6.4-8.3 [facility] Comment on above: Performed By: #### A VITB1, AVITB6 ####[facility] [address] [place] [address] Lab Director: Alfonso Perez MD#### CP, MG, ANURADHA, CDP ####[address] [place] [address] Lab Director: Samuel Ayers MD#### FOL, TRIG ####[facility] [address]qmtqbo[address] [place] [address] Lab Director: Ganesh Moyer MD Sodium [Moles/Vol] 141 mmol/L Normal 135-144 [facility] Comment on above: Performed By: #### A VITB1, AVITB6 ####[facility] [address]ftufykodr973 [place] [address] Lab Director: Alfonso Perez MD#### CP, MG, ANURADHA, CDP ####[address] [place] [address] [facility] Director: Samuel Ayers MD#### FOL, TRIG ####[facility] [address]slmifkb[address]50 [place] [address] lab Director: Ganesh Moyer MD Urea nitrogen [Mass/Vol] 45 mg/dL High 6-20 [facility] Comment on above: Performed By: #### A VITB1, AVITB6 ####[facility] [address]lt[address] [place] [address] lab Director: Alfonso Perez MD#### CP, MG, ANURADHA, CDP ####[facility] [place] [address] lab Director: Samuel Ayers MD#### FOL, TRIG ####[facility] Jrtas[address]azof3679 [place] [address] lab Director: Ganesh Moyer MD Comprehensive Metabolic Pane [facility] 01-18-2023 Albumin [Mass/Vol] 3.3 g/dL Low 3.5 - 5.2 g/dL [facility] Albumin/Globulin [Mass ratio] 0.9 {ratio} Low 1.0 - 2.5 [facility] ALP [Catalytic activity/Vol] 86 U/L 35 - 104 U/L [facility] ALT [Catalytic activity/Vol] 19 U/L 5 - 33 U/L [facility] Anion gap [Moles/Vol] 9 mmol/L 9 - 17 mmol/L [facility] AST [Catalytic activity/Vol] 20 U/L NINF - 32 U/L [facility] Bilirubin [Mass/Vol] 0.7 mg/dL 0.3 - 1 .2 mg/dL [facility] Calcium [Mass/Vol] 9.4 mg/dL 8.6 - 10. 4 mg/dL [facility] Chloride [Moles/Vol] 103 mmol/L 98 - 10 7 mmol/L [facility] CO2 [Moles/Vol] 29 mmol/L 20 - 31 mmol/L [facility] Creatinine [Mass/Vol] 0.78 mg/dL 0.50 - 0.90 mg/dL [facility] GFR/1.73 sq M.predicted MDRD (S/P/Bld) [Vol rate/Area] - PINF [facility] Comment on above: These results are not intended for use in patients <18 years of age. eGFR results are calculated without a race factor using the 2020 CKD-EPI equation. Careful clinical correlation is recommended, particularly when comparing to results calculated using previous equations. The CKD-EPI equation is less accurate in patients with extremes of muscle mass, extra-renal metabolism of creatine, excessive creatine ingestion, or following therapy that affects renal tubular secretion. Glucose [Mass/Vol] 108 mg/dL High 70 - 99 mg/dL [facility] Interpretation and review of laboratory results Abnormal [facility] Potassium [Moles/Vol] 4.4 mmol/L 3.7 - 5.3 mmol/L [facility] Protein [Mass/Vol] 6.8 g/dL 6.4 - 8.3 g/dL [facility] Sodium [Moles/Vol] 141 mmol/L 135 - 144 mmol/L [facility] Urea nitrogen [Mass/Vol] 45 mg/dL High 6 - 20 mg/dL [facility] Urea nitrogen/Creatinine (Bld) [Mass ratio] 58 High 9 - 20 [facility] Folateon 01-18-2023 Folate [Mass/Vol] 15.9 ng/mL 4.8 - PINF ng/mL [facility] Magnesiumon 01-18-2023 Magnesium [Mass/Vol] 2.0 mg/dL Normal 1.6-2.6 [facility] Comment on above: Performed By: #### A VITB1, AVITB6 ####[facility] [address]jt[address]oyd[address] [place] [address] Lab Director: Alfonso Perez MD#### CP, MG, ANURADHA, CDP ####[facility] [place] [address] Lab Director: Samuel Ayers MD#### FOL, TRIG ####[facility] [address] [place], [place] 3438408 Lab Director: Ganesh Moyer MD Magnesium [Mass/Vol] 2.0 mg/dL 1.6 - 2 .6 mg/dL [facility] Miscellaneouson 01-18-2023 Test Name [id number] Normal [facility] Comment on above: Performed By: #### C MIS ####[facility] [place] [address] Lab Director: Samuel Ayers MD No Panel Informationon 01-18 [facility] Phosphoruson 01-18-2023 Phosphate [Mass/Vol] 4.2 mg/dL 2.6 - 4 .5 mg/dL [facility] Phosphorus, Inorg.on 023 Phosphorus, Inorg. 4.2 mg/dL Normal 2.6-4.5 [facility] Comment on above: Performed By: #### A VITB1, AVITB6 ####[facility] [address]ks[address]azz[address] [place] [address] Lab Director: Alfonso Perez MD#### CP, MG, ANURADHA, CDP ####[facility] [place] [address] lab Director: Samuel Ayers MD#### FOL, TRIG ####[facility] [address]sh[address] [place], [place] 9342508 Lab Director: Ganesh Moyer MD Triglycerideon 01-18-2023 Triglyceride [Mass/Vol] 99 mg/dL NINF - 150 mg/dL [facility] Comment on above: Triglyceride Guidelines: <150 Desirable 150-199 Borderline 200-499 High >499 Very high Based on AHA Guidelines for fasting triglyceride, July 2012. [facility] CNPNon 01-16-2023 CNPN Normal [facility] Methylmalonic Acidon 023 Amino Acid, Plasma 0.37 umol/L Normal 0.00-0.40 [facility] Comment on above: Result Comment: (NOT E)INTERPRETIVE INFORMATION: MMA Serum/Plasma, Vitamin B12 StatusThis test was developed and its performance characteristicsdetermined by [facility]. It has not been cleared orapproved by the [place] Food and Drug Administration. This test wasperformed in a CLIA certified laboratory and is intended forclinical purposes.Performed By: [address] [address]Wsrikklqjc Director: Kyle Ledesma MD, PhD Performed By: #### C DP, ANURADHA, MG, CP ####[address] [place], [place] 0899283 Lab Director: Samuel Ayers MD#### B12 ####[place] [place], [place] 0229208 Lab Director: Ganesh Moyer MD#### AMMAC ####[address] [id number] Lab Director: Alfonso ePrez MD CNPNon 01-03-2023 CNPN Normal [facility] Vitamin B12on 01-03-2023 Cobalamin (Vitamin B12) [Mass/Vol] 756 pg/mL Normal 232-1245 [facility] Comment on above: Performed By: #### C DP, ANURADHA, MG, CP ####[address] [place], [place] 5159983 Lab Director: Samuel Ayers MD#### B12 ####[place] [place] [address] Lab Director: Ganesh Moyer MD#### AMMAC ####[address] [id number] Lab Director: Alfonso Perez MD CBC with Auto Differentialon 01-02-2023 Absolute Eos # 0.29 [facility] Absolute Immature Granulocyte [facility] Absolute Lymph # 2.29 [facility] Absolute Graham # 0.74 [facility] Basophils (Bld) [#/Vol] 0.06 10*3/uL [facility] Basophils/100 WBC (Bld) 1 % 0 - 2 % [facility] Eosinophils/100 WBC (Bld) 4 % 1 - 4 % [facility] Hematocrit (Bld) [Volume fraction] 36.3 % 36.3 - 47.1 % [facility] Hemoglobin (Bld) [Mass/Vol] 10.9 g/dL Low 11.9 - 15.1 g/dL [facility] Immature granulocytes/100 WBC (Bld) 0 % 0 [facility] Interpretation and review of laboratory results Abnormal [facility] Lymphocytes/100 WBC (Bld) 30 % 24 - 43 % [facility] MCH (RBC) [Entitic mass] 27.7 pg 25.2 - 33.5 pg [facility] MCHC (RBC) [Mass/Vol] 30.0 g/dL 28.4 - 34.8 g/dL [facility] MCV (RBC) [Entitic vol] 92.4 fL 82.6 - 102.9 fL [facility] Monocytes/100 WBC (Bld) 10 % 3 - 12 % [facility] NRBC Automated 0.0 0.0 per 100 WBC [facility] Platelet distribution width (Bld) [Ratio] 14.2 % 11.8 - 14.4 % [facility] Platelet mean volume (Bld) [Entitic vol] 11.3 fL 8.1 - 13.5 fL [facility] Platelets (Bld) [#/Vol] 358 10*3/uL [facility] RBC (Bld) [#/Vol] 3.93 10*6/uL Low 3.95 - 5.11 m/uL [facility] Segmented neutrophils/100 WBC (Bld) 55 % 36 - 65 % [facility] Segs Absolute 4.15 [facility] WBC (Bld) [#/Vol] 7.5 10*3/uL [facility] CBC with Diffon 01-02-2023 Abs. Basophil 0.06 k/uL Normal 0.00-0.20 [facility] Comment on above: Performed By: #### C DP, ANURADHA, MG, CP ####[address] [place] [id number] Lab Director: Samuel Ayers MD#### B12 ####[address] [address] Lab Director: Ganesh Moyer MD#### AMMAC ####[facility] [address] [place] [address] Lab Director: Alfonso Perez MD Abs.Imm.Granulocyte <0.03 Normal 0.00-0.30 [facility] Comment on above: Performed By: #### C DP, ANURADHA, MG, CP ####[address] [place] 3315583 Lab Director: Samuel Ayers MD#### B12 ####[address] [address] Lab Director: Ganesh Moyer MD#### AMMAC ####[facility] [address]fi[address] [place] [address] Lab Director: Alfonso Perez MD Abs.Neutrophil (Seg) 4.15 k/uL Normal 1.50-8.10 [facility] Comment on above: Performed By: #### C DP, ANURADHA, MG, CP ####[address] [place] 3315583 Lab Director: Samuel Ayers MD#### B12 ####[address] [address] Lab Director: Ganesh Moyer MD#### AMMAC ####[facility] [address]ix[address] [place] [address] Lab Director: Alfonso Perez MD Basophils/100 WBC (Bld) 1 % Normal 0-2 [facility] Comment on above: Performed By: #### C DP, ANURADHA, MG, CP ####[address] [place], [place] 7217183 Lab Director: Samuel Ayers MD#### B12 ####[address] [address] Lab Director: Ganesh Moyer MD#### AMMAC ####[facility] [address] [place] [address] Lab Director: Alfonso Perez MD Eosinophils (Bld) [#/Vol] 0.29 10*3/uL Normal 0.00-0.44 [facility] Comment on above: Performed By: #### C DP, ANURADHA, MG, CP ####[address] [place] 3315583 Lab Director: Samuel Ayers MD#### B12 ####[address] [address] Lab Director: Ganesh Moyer MD#### AMMAC ####[facility] [address] [place] [address] Lab Director: Alfonso Perez MD Eosinophils/100 WBC (Bld) 4 % Normal 1-4 [facility] Comment on above: Performed By: #### C DP, ANURADHA, MG, CP ####[address] [place] 3315536([facility])[phone] Director: Samuel Ayers MD#### B12 ####[address] [address] Lab Director: Ganesh Moyer MD#### AMMAC ####[facility] [address] [place] [address] Lab Director: Alfonso Perez MD Erythrocyte distribution width (RBC) [Ratio] 14.2 % Normal 11.8-14.4 [facility] Comment on above: Performed By: #### C DP, ANURADHA, MG, CP ####[address] [place], [place] 4700483 Lab Director: Samuel Ayers MD#### B12 ####[place] [address] [place] [address] Lab Director: Ganesh Moyer MD#### AMMAC ####[facility] [address]tvbkhvp[address] [place] [address] Lab Director: Alfonso Perez MD Hematocrit (Bld) [Volume fraction] 36.3 % Normal 36.3-47.1 [facility] Comment on above: Performed By: #### C DP, ANURADHA, MG, CP ####[address] [place] 3315583 Lab Director: Samuel Ayers MD#### B12 ####[address] [address] Lab Director: Ganesh Moyer MD#### AMMAC ####[facility] [address] [place] [address] [id number] Lab Director: Alfonso Perez MD Hemoglobin (Bld) [Mass/Vol] 10.9 g/dL Low 11.9-15.1 [facility] Comment on above: Performed By: #### C DP, ANURADHA, MG, CP ####[address] [place] 3315583 Lab Director: Samuel Ayers MD#### B12 ####[address] [address] Lab Director: Ganesh Moyer MD#### AMMAC ####[facility] [address]vy[address] [place] [address] Lab Director: Alfonso Perez MD Immature granulocytes/100 WBC (Bld) 0 % Normal 0 [facility] Comment on above: Performed By: #### C DP, ANURADHA, MG, CP ####[address] [place], [place] 2978283 Lab Director: Samuel Ayers MD#### B12 ####[place] [address] [place], [place] [phone] Director: Ganesh Moyer MD#### AMMAC ####[facility] [address]ilsbs[address] [place] [address] Lab Director: Alfonso Perez MD Lymphocytes (Bld) [#/Vol] 2.29 10*3/uL Normal 1.10-3.70 [facility] Comment on above: Performed By: #### C DP, ANURADHA, MG, CP ####[address] [place] 3315583 Lab Director: Samuel Ayers MD#### B12 ####[address] [phone] Director: Ganesh Moyer MD#### AMMAC ####[facility] [address] [place] [address] Lab Director: Alfonso Perez MD Lymphocytes/100 WBC (Bld) 30 % Normal 24-43 [facility] Comment on above: Performed By: #### C DP, ANURADHA, MG, CP ####[address] [place] [address]83[facility])[phone] Director: Samuel Ayers MD#### B12 ####[address] [address] [phone] Director: Ganesh Moyer MD#### AMMAC ####[facility] [address] [place], [place] [phone] Director: Alfonso Perez MD MCH (RBC) [Entitic mass] 27.7 pg Normal 25.2-33.5 [facility] Comment on above: Performed By: #### C DP, ANURADHA, MG, CP ####[address] [place], [place] [id number] Lab Director: Samuel Ayers MD#### B12 ####[address] [place] [address] Lab Director: Ganesh Moyer MD#### AMMAC ####[facility] [address] [place] [address] Lab Director: Alfonso Perez MD MCHC (RBC) [Mass/Vol] 30.0 g/dL Normal 28.4-34.8 [facility] Comment on above: Performed By: #### C DP, ANURADHA, MG, CP ####[address] [place] [phone] Lab Director: Samuel Ayers MD#### B12 ####[address] [address] Lab Director: Ganesh Moyer MD#### AMMAC ####[facility] [address] [place] [address] Lab Director: Alfonso Perez MD MCV (RBC) [Entitic vol] 92.4 fL Normal 82.6-102.9 [facility] Comment on above: Performed By: #### C DP, ANURADHA, MG, CP ####[address] [place] [phone] Lab Director: Samuel Ayers MD#### B12 ####[address] [address] Lab Director: Ganesh Moyer MD#### AMMAC ####[facility] [address] [place] [address] Lab Director: Alfonso Perez MD Monocytes (Bld) [#/Vol] 0.74 10*3/uL Normal 0.10-1.20 [facility] Comment on above: Performed By: #### C DP, ANURADHA, MG, CP ####[address] [place], [place] 6079283 Lab Director: Samuel Ayers MD#### B12 ####[address] [address] Lab Director: Ganesh Moyer MD#### AMMAC ####[facility] [address] [place] [address] Lab Director: Alfonso Perez MD Monocytes/100 WBC (Bld) 10 % Normal 3-12 [facility] Comment on above: Performed By: #### C DP, ANURADHA, MG, CP ####[address] [place], [place] 7750283 Lab Director: Samuel Ayers MD#### B12 ####[address] [address] Lab Director: Ganesh Moyer MD#### AMMAC ####[facility] [address] [place] [address] Lab Director: Alfonso Perez MD Neutrophil (Seg) 55 % Normal 36-65 [facility] Comment on above: Performed By: #### C DP, ANURADHA, MG, CP ####[address] [place], [place] 7815483 Lab Director: Samuel Ayers MD#### B12 ####[address] [address] Lab Director: Ganesh Moyer MD#### AMMAC ####[facility] [address] [place] [address] Lab Director: Alfonso Perez MD NRBC Automated 0.0 per [address] [facility] Comment on above: Performed By: #### C DP, ANURADHA, MG, CP ####[address] [place] [address] Lab Director: Samuel Ayers MD#### B12 ####[address] [place], [place] [phone] Director: Ganesh Moyer MD#### AMMAC ####[facility] [address] [place] [address] Lab Director: Alfonso Perez MD Platelet mean volume (Bld) [Entitic vol] 11.3 fL Normal 8.1-13.5 [facility] Comment on above: Performed By: #### C DP, ANURADHA, MG, CP ####[address] [place] [phone] Lab Director: Samuel Ayers MD#### B12 ####[address] [address] Lab Director: Ganesh Moyer MD#### AMMAC ####[facility] [address] [place] [address] Lab Director: Alfonso Perez MD Platelets (Bld) [#/Vol] 358 10*3/uL Normal 138-453 [facility] Comment on above: Performed By: #### C DP, ANURADHA, MG, CP ####[address] , [facility]83[facility])[phone] Director: Samuel Ayers MD#### B12 ####[address] [phone] Director: Ganesh Moyer MD#### AMMAC ####[facility] [address] [place], [place] [phone] Director: Alfonso Perez MD RBC (Bld) [#/Vol] 3.93 10*6/uL Low 3.95-5.11 [facility] Comment on above: Performed By: #### C DP, ANURADHA, MG, CP ####[address] , [place] 2057683 Lab Director: Samuel Ayers MD#### B12 ####[address] [place], [place] [phone] Director: Ganesh Moyer MD#### AMMAC ####[facility] [address] [place] [address] Lab Director: Alfonso Perez MD WBC (Bld) [#/Vol] 7.5 10*3/uL Normal 3.5-11.3 [facility] Comment on above: Performed By: #### C DP, ANURADHA, MG, CP ####[address] [place], [place] 4445383 Lab Director: Samuel Ayers MD#### B12 ####[address] [address] Lab Director: Ganesh Moyer MD#### AMMAC ####[facility] [address] [place] [address] [phone] Lab Director: Alfonso Perez MD Comp Metabolic Profon 2022 Albumin [Mass/Vol] 3.5 g/dL Normal 3.5-5.2 [facility] Comment on above: Performed By: #### C DP, ANURADHA, MG, CP ####[address] [place] [address] Lab Director: Samuel Ayers MD#### B12 ####[facility] [address] [place], [place] [phone] Director: Ganesh Moyer MD#### AMMAC ####[facility] [address] [place] [address] Lab Director: Alfonso Perez MD Albumin/Glob Ratio 1.0 Normal 1.0-2.5 [facility] Comment on above: Performed By: #### C DP, ANURADHA, MG, CP ####[address] [place], [place] 7000883 Lab Director: Samuel Ayers MD#### B12 ####[address] [place] [address] Lab Director: Ganesh Moyer MD#### AMMAC ####[facility] [address] [place] [address] Lab Director: Alfonso Perez MD Alkaline Phos 95 U/L Normal 35-104 [facility] Comment on above: Performed By: #### C DP, ANURADHA, MG, CP ####[address] [place], [place] 6391883 Lab Director: Samuel Ayers MD#### B12 ####[address] [address] Lab Director: Ganesh Moyer MD#### AMMAC ####[facility] [address] [place] [address] [phone] Lab Director: Alfonso Perez MD ALT [Catalytic activity/Vol] 16 U/L Normal 5-33 [facility] Comment on above: Performed By: #### C DP, ANURADHA, MG, CP ####[address] [place] [address] Lab Director: Samuel Ayers MD#### B12 ####[address] [place] [address] Lab Director: Ganesh Moyer MD#### AMMAC ####[facility] [address] [place] [address] Lab Director: Alfonso Perez MD Anion gap [Moles/Vol] 10 mmol/L Normal 9-17 [facility] Comment on above: Performed By: #### C DP, ANURADHA, MG, CP ####[address] , [place] 9376983 Lab Director: Samuel Ayers MD#### B12 ####[address] [place] [address] Lab Director: Ganesh Moyer MD#### AMMAC ####[facility] [address] [place] [address] Lab Director: Alfonso Perez MD AST [Catalytic activity/Vol] 18 U/L Normal <32 [facility] Comment on above: Performed By: #### C DP, ANURADHA, MG, CP ####[address] [place], [place] 7551383 Lab Director: Samuel Ayers MD#### B12 ####[address] [address] Lab Director: Ganesh Moyer MD#### AMMAC ####[facility] [address] [place] [address] [id number] Lab Director: Alfonso Perez MD Bilirubin [Mass/Vol] 0.9 mg/dL Normal 0.3-1.2 [facility] Comment on above: Performed By: #### C DP, ANURADHA, MG, CP ####[address] [place] [address] Lab Director: Samuel Ayers MD#### B12 ####[address] [place] [address] Lab Director: Ganesh Moyer MD#### AMMAC ####[facility] [address] [place] [address] Lab Director: Alfonso Perez MD BUN/CRE Ratio 50 High 9-20 [facility] Comment on above: Performed By: #### C DP, ANURADHA, MG, CP ####[address] , [place] 9575083 Lab Director: Samuel Ayers MD#### B12 ####[address] [place] [address] Lab Director: Ganesh Moyer MD#### AMMAC ####[facility] [address] [place], [place] 61563108 Lab Director: Alfonso Perez MD Calcium [Mass/Vol] 9.2 mg/dL Normal 8.6-10.4 [facility] Comment on above: Performed By: #### C DP, ANURADHA, MG, CP ####[address] , [place] 4480783 Lab Director: Samuel Ayers MD#### B12 ####[address] [address] Lab Director: Ganesh Moyer MD#### AMMAC ####[facility] [address] [place] [address] [id number] Lab Director: Alfonso Perez MD Chloride [Moles/Vol] 104 mmol/L Normal 98-107 [facility] Comment on above: Performed By: #### C DP, ANURADHA, MG, CP ####[address] , [place] 9539183 Lab Director: Samuel Ayers MD#### B12 ####[address] [address] Lab Director: Ganesh Moyer MD#### AMMAC ####[facility] [address] [place], [place] [phone] Lab Director: Alfonso Perez MD CO2 [Moles/Vol] 27 mmol/L Normal 20-31 [facility] Comment on above: Performed By: #### C DP, ANURADHA, MG, CP ####[address] , [place] 5660483 Lab Director: Samuel Ayers MD#### B12 ####[address] [place], [place] 8391608 Lab Director: Ganesh Moyer MD#### AMMAC ####[facility] [address] [place], [place] 485[address] Lab Director: Alfonso Perez MD Creatinine [Mass/Vol] 0.88 mg/dL Normal 0.50-0.90 [facility] Comment on above: Performed By: #### C DP, ANURADHA, MG, CP ####[address] [place], [place] 7928483 Lab Director: Samuel Ayers MD#### B12 ####[address] [phone] Lab Director: Ganesh Moyer MD#### AMMAC ####[facility] [address] [place] [address] [id number] Lab Director: Alfonso Perez MD GFR/1.73 sq M.predicted among non-blacks MDRD (S/P/Bld) [Vol rate/Area] mL/min/{1.73_m2} Normal >60 [facility] Comment on above: Result Comment: Thes e results are not intended for use in patients <18 years of age.eGFR results are calculated without a race factor using the 2020 CKD-EPI equation.Careful clinical correlation is recommended, particularly when comparing to results calculated using previous equations.The CKD-EPI equation is less accurate in patients with extremes of muscle mass, extra-renal metabolism of creatine, excessive creatine ingestion, or following therapy that affects renal tubular secretion. Performed By: #### C DP, ANURADHA, MG, CP ####[address] [place], [place] 8592383 Lab Director: Samuel Ayers MD#### B12 ####[address] [place], [place] 4541662 Lab Director: Ganesh Moyer MD#### AMMAC ####[facility] [address] [place] [address] Lab Director: Alfonso Perez MD Glucose [Mass/Vol] 113 mg/dL High 70-99 [facility] Comment on above: Performed By: #### C DP, ANURADHA, MG, CP ####[address] , [place] 6780883 Lab Director: Samuel Ayers MD#### B12 ####[facility] [place] [address] Lab Director: Ganesh Moyer MD#### AMMAC ####[facility] [address] [place] [address] [id number] Lab Director: Alfonso Perez MD Potassium [Moles/Vol] 4.7 mmol/L Normal 3.7-5.3 [facility] Comment on above: Performed By: #### C DP, ANURADHA, MG, CP ####[address] , [place] 6967383 Lab Director: Samuel Ayers MD#### B12 ####[address] [address] Lab Director: Ganesh Moyer MD#### AMMAC ####[facility] [address] [place] [address] [id number] Lab Director: Alfonso Perez MD Protein [Mass/Vol] 7.0 g/dL Normal 6.4-8.3 [facility] Comment on above: Performed By: #### C DP, ANURADHA, MG, CP ####[address] , [place] 8303083 Lab Director: Samuel Ayers MD#### B12 ####[address] [address] Lab Director: Ganesh Moyer MD#### AMMAC ####[facility] [address] [place], [place] [phone] lab Director: Alfonso Perez MD Sodium [Moles/Vol] 141 mmol/L Normal 135-144 [facility] Comment on above: Performed By: #### C DP, ANURADHA, MG, CP ####[facility] [place] [address] Lab Director: Samuel Ayers MD#### B12 ####[facility] [address] [place], [place] 4207908 Lab Director: Ganesh Moyer MD#### AMMAC ####[facility] [address] [place], [place] 49753108 lab Director: Alfonso Perez MD Urea nitrogen [Mass/Vol] 44 mg/dL High 6-20 [facility] Comment on above: Performed By: #### C DP, ANURADHA, MG, CP ####[address] [place] [address] Lab Director: Samuel Ayers MD#### B12 ####[facility] [address] [place], [place] 7938608 Lab Director: Ganesh Moyer MD#### AMMAC ####[facility] [address] [place], [place] 10578108 Lab Director: Alfonso Perez MD Comprehensive Metabolic Pane [facility] 01-02-2023 Albumin [Mass/Vol] 3.5 g/dL 3.5 - 5.2 g/dL [facility] Albumin/Globulin [Mass ratio] 1.0 {ratio} 1.0 - 2.5 [facility] ALP [Catalytic activity/Vol] 95 U/L 35 - 104 U/L [facility] ALT [Catalytic activity/Vol] 16 U/L 5 - 33 U/L [facility] Anion gap [Moles/Vol] 10 mmol/L 9 - 17 mmol/L [facility] AST [Catalytic activity/Vol] 18 U/L NINF - 32 U/L [facility] Bilirubin [Mass/Vol] 0.9 mg/dL 0.3 - 1 .2 mg/dL [facility] Calcium [Mass/Vol] 9.2 mg/dL 8.6 - 10. 4 mg/dL [facility] Chloride [Moles/Vol] 104 mmol/L 98 - 10 7 mmol/L [facility] CO2 [Moles/Vol] 27 mmol/L 20 - 31 mmol/L [facility] Creatinine [Mass/Vol] 0.88 mg/dL 0.50 - 0.90 mg/dL [facility] GFR/1.73 sq M.predicted MDRD (S/P/Bld) [Vol rate/Area] - PINF [facility] Comment on above: These results are not intended for use in patients <18 years of age. eGFR results are calculated without a race factor using the 2020 CKD-EPI equation. Careful clinical correlation is recommended, particularly when comparing to results calculated using previous equations. The CKD-EPI equation is less accurate in patients with extremes of muscle mass, extra-renal metabolism of creatine, excessive creatine ingestion, or following therapy that affects renal tubular secretion. Glucose [Mass/Vol] 113 mg/dL High 70 - 99 mg/dL [facility] Interpretation and review of laboratory results Abnormal [facility] Potassium [Moles/Vol] 4.7 mmol/L 3.7 - 5.3 mmol/L [facility] Protein [Mass/Vol] 7.0 g/dL 6.4 - 8.3 g/dL [facility] Sodium [Moles/Vol] 141 mmol/L 135 - 144 mmol/L [facility] Urea nitrogen [Mass/Vol] 44 mg/dL High 6 - 20 mg/dL [facility] Urea nitrogen/Creatinine (Bld) [Mass ratio] 50 High 9 - 20 [facility] Magnesiumon 01-02-2023 Magnesium [Mass/Vol] 2.0 mg/dL Normal 1.6-2.6 [facility] Comment on above: Performed By: #### C DP, ANURADHA, MG, CP ####[facility] [place], [place] 9765383 Lab Director: Samuel Ayers MD#### B12 ####[address] [place], [place] 2983508 lab Director: Ganesh Moyer MD#### AMMAC ####[facility] [address] [place] [address] Lab Director: Alfonso Perez MD Magnesium [Mass/Vol] 2.0 mg/dL 1.6 - 2 .6 mg/dL [facility] No Panel Informationon 01-02 [facility] Phosphoruson 01-02-2023 Phosphate [Mass/Vol] 4.2 mg/dL 2.6 - 4 .5 mg/dL [facility] Phosphorus, Inorg.on 023 Phosphorus, Inorg. 4.2 mg/dL Normal 2.6-4.5 [facility] Comment on above: Performed By: #### C DP, ANURADHA, MG, CP ####[address] [place], [place] 0548983 Lab Director: Samuel Ayers MD#### B12 ####[address] [place], [place] 5456008 Lab Director: Ganesh Moyer MD#### AMMAC ####[facility] [address] [place] [address] Lab Director: Alfonso Perez MD Vitamin B12on 01-02-2023 Cobalamin (Vitamin B12) [Mass/Vol] 756 pg/mL 232 - 1245 pg/mL [facility] CNPNon 12-29-2022 CNPN Normal [facility] CBCon 12-26-2022 Erythrocyte distribution width (RBC) [Ratio] 14.2 % Normal 11.8-14.4 [facility] Comment on above: Performed By: #### C P, CBC, ANURADHA, MG ####[address] , [facility]83 lab Director: Samuel Ayers MD Hematocrit (Bld) [Volume fraction] 34.2 % Low 36.3-47.1 [facility] Comment on above: Performed By: #### C P, CBC, ANURADHA, MG ####[address] , [place] [address] lab Director: Samuel Ayers MD Hemoglobin (Bld) [Mass/Vol] 10.1 g/dL Low 11.9-15.1 [facility] Comment on above: Performed By: #### C P, CBC, ANURADHA, MG ####[address] [place] [id number] lab Director: Samuel Ayers MD MCH (RBC) [Entitic mass] 28.1 pg Normal 25.2-33.5 [facility] Comment on above: Performed By: #### C P, CBC, ANURADHA, MG ####[address] , [facility]83 lab Director: Samuel Ayers MD MCHC (RBC) [Mass/Vol] 29.5 g/dL Normal 28.4-34.8 [facility] Comment on above: Performed By: #### C P, CBC, ANURADHA, MG ####[address] , [facility]83 lab Director: Samuel Ayers MD MCV (RBC) [Entitic vol] 95.3 fL Normal 82.6-102.9 [facility] Comment on above: Performed By: #### C P, CBC, ANURADHA, MG ####[address] , [facility]83 lab Director: Samuel Ayers MD NRBC Automated 0.0 per [address] [facility] Comment on above: Performed By: #### C P, CBC, ANURADHA, MG ####[address] , [facility]83 Lab Director: Samuel Ayers MD Platelet mean volume (Bld) [Entitic vol] 11.8 fL Normal 8.1-13.5 [facility] Comment on above: Performed By: #### C P, CBC, ANURADHA, MG ####[address] , [place] [address] Lab Director: Samuel Ayers MD Platelets (Bld) [#/Vol] 331 10*3/uL Normal 138-453 [facility] Comment on above: Performed By: #### C P, CBC, ANURADHA, MG ####[address] , [facility]83 lab Director: Samuel Ayers MD RBC (Bld) [#/Vol] 3.59 10*6/uL Low 3.95-5.11 [facility] Comment on above: Performed By: #### C P, CBC, ANURADHA, MG ####[address] , [facility]83 Lab Director: Samuel Ayers MD WBC (Bld) [#/Vol] 7.5 10*3/uL Normal 3.5-11.3 [facility] Comment on above: Performed By: #### C P, CBC, ANURADHA, MG ####[address] , [facility]83 lab Director: Samuel Ayers MD Hematocrit (Bld) [Volume fraction] 34.2 % Low 36.3 - 47.1 % [facility] Hemoglobin (Bld) [Mass/Vol] 10.1 g/dL Low 11.9 - 15.1 g/dL [facility] Interpretation and review of laboratory results Abnormal [facility] MCH (RBC) [Entitic mass] 28.1 pg 25.2 - 33.5 pg [facility] MCHC (RBC) [Mass/Vol] 29.5 g/dL 28.4 - 34.8 g/dL [facility] MCV (RBC) [Entitic vol] 95.3 fL 82.6 - 102.9 fL [facility] NRBC Automated 0.0 0.0 per 100 WBC [facility] Platelet distribution width (Bld) [Ratio] 14.2 % 11.8 - 14.4 % [facility] Platelet mean volume (Bld) [Entitic vol] 11.8 fL 8.1 - 13.5 fL [facility] Platelets (Bld) [#/Vol] 331 10*3/uL [facility] RBC (Bld) [#/Vol] 3.59 10*6/uL Low 3.95 - 5.11 m/uL [facility] WBC (Bld) [#/Vol] 7.5 10*3/uL [facility] Comp Metabolic Profon 2022 Albumin [Mass/Vol] 3.3 g/dL Low 3.5-5.2 [facility] Comment on above: Performed By: #### C P, CBC, ANURADHA, MG ####[address] [place] [id number] [facility] Director: Samuel Ayers MD Albumin/Glob Ratio 1.0 Normal 1.0-2.5 [facility] Comment on above: Performed By: #### C P, CBC, ANURADHA, MG ####[address] , [facility]83 lab Director: Samuel Ayers MD Alkaline Phos 103 U/L Normal 35-104 [facility] Comment on above: Performed By: #### C P, CBC, ANURADHA, MG ####[address] [place] [address] lab Director: Samuel Ayers MD ALT [Catalytic activity/Vol] 25 U/L Normal 5-33 [facility] Comment on above: Performed By: #### C P, CBC, ANURADHA, MG ####[address] , [place] 1959483 Lab Director: Samuel Ayers MD Anion gap [Moles/Vol] 10 mmol/L Normal 9-17 [facility] Comment on above: Performed By: #### C P, CBC, ANURADHA, MG ####[address] , [place] 6789183 lab Director: Samuel Ayers MD AST [Catalytic activity/Vol] 22 U/L Normal <32 [facility] Comment on above: Performed By: #### C P, CBC, ANURADHA, MG ####[address] , [place] 8190083 lab Director: Samuel Ayers MD Bilirubin [Mass/Vol] 0.7 mg/dL Normal 0.3-1.2 [facility] Comment on above: Performed By: #### C P, CBC, ANURADHA, MG ####[address] , [place] 2266683 lab Director: Samuel Ayers MD BUN/CRE Ratio 49 High 9-20 [facility] Comment on above: Performed By: #### C P, CBC, ANURADHA, MG ####[address] , [place] 0105483 lab Director: Samuel Ayers MD Calcium [Mass/Vol] 9.0 mg/dL Normal 8.6-10.4 [facility] Comment on above: Performed By: #### C P, CBC, ANURADHA, MG ####[address] , [place] 2351183 lab Director: Samuel Ayers MD Chloride [Moles/Vol] 104 mmol/L Normal 98-107 [facility] Comment on above: Performed By: #### C P, CBC, ANURADHA, MG ####[address] , [place] 0692183 Lab Director: Samuel Ayers MD CO2 [Moles/Vol] 27 mmol/L Normal 20-31 [facility] Comment on above: Performed By: #### C P, CBC, ANURADHA, MG ####[facility] [place] [address] lab Director: Samuel Ayers MD Creatinine [Mass/Vol] 0.83 mg/dL Normal 0.50-0.90 [facility] Comment on above: Performed By: #### C P, CBC, ANURADHA, MG ####[address] [place] [address] lab Director: Samuel Ayers MD GFR/1.73 sq M.predicted among non-blacks MDRD (S/P/Bld) [Vol rate/Area] mL/min/{1.73_m2} Normal >60 [facility] Comment on above: Result Comment: Thes e results are not intended for use in patients <18 years of age.eGFR results are calculated without a race factor using the 2020 CKD-EPI equation.Careful clinical correlation is recommended, particularly when comparing to results calculated using previous equations.The CKD-EPI equation is less accurate in patients with extremes of muscle mass, extra-renal metabolism of creatine, excessive creatine ingestion, or following therapy that affects renal tubular secretion. Performed By: #### C P, CBC, ANURADHA, MG ####[address] [place] [address] lab Director: Samuel Ayers MD Glucose [Mass/Vol] 125 mg/dL High 70-99 [facility] Comment on above: Performed By: #### C P, CBC, ANURADHA, MG ####[address] [place] [address] lab Director: Samuel Ayers MD Potassium [Moles/Vol] 4.5 mmol/L Normal 3.7-5.3 [facility] Comment on above: Performed By: #### C P, CBC, ANURADHA, MG ####[address] [place] [address] lab Director: Samuel Ayers MD Protein [Mass/Vol] 6.7 g/dL Normal 6.4-8.3 [facility] Comment on above: Performed By: #### C P, CBC, ANURADHA, MG ####[address] [place] [address] lab Director: Samuel Ayers MD Sodium [Moles/Vol] 141 mmol/L Normal 135-144 [facility] Comment on above: Performed By: #### C P, CBC, ANURADHA, MG ####[address] [place] [address] lab Director: Samuel Ayers MD Urea nitrogen [Mass/Vol] 41 mg/dL High 6-20 [facility] Comment on above: Performed By: #### C P, CBC, ANURADHA, MG ####[address] , [facility]83 lab Director: Samuel Ayers MD Comprehensive Metabolic Pane [facility] 12-26-2022 Albumin [Mass/Vol] 3.3 g/dL Low 3.5 - 5.2 g/dL [facility] Albumin/Globulin [Mass ratio] 1.0 {ratio} 1.0 - 2.5 [facility] ALP [Catalytic activity/Vol] 103 U/L 35 - 104 U/L [facility] ALT [Catalytic activity/Vol] 25 U/L 5 - 33 U/L [facility] Anion gap [Moles/Vol] 10 mmol/L 9 - 17 mmol/L [facility] AST [Catalytic activity/Vol] 22 U/L NINF - 32 U/L [facility] Bilirubin [Mass/Vol] 0.7 mg/dL 0.3 - 1 .2 mg/dL [facility] Calcium [Mass/Vol] 9.0 mg/dL 8.6 - 10. 4 mg/dL [facility] Chloride [Moles/Vol] 104 mmol/L 98 - 10 7 mmol/L [facility] CO2 [Moles/Vol] 27 mmol/L 20 - 31 mmol/L [facility] Creatinine [Mass/Vol] 0.83 mg/dL 0.50 - 0.90 mg/dL [facility] GFR/1.73 sq M.predicted MDRD (S/P/Bld) [Vol rate/Area] - PINF [facility] Comment on above: These results are not intended for use in patients <18 years of age. eGFR results are calculated without a race factor using the 2020 CKD-EPI equation. Careful clinical correlation is recommended, particularly when comparing to results calculated using previous equations. The CKD-EPI equation is less accurate in patients with extremes of muscle mass, extra-renal metabolism of creatine, excessive creatine ingestion, or following therapy that affects renal tubular secretion. Glucose [Mass/Vol] 125 mg/dL High 70 - 99 mg/dL [facility] Interpretation and review of laboratory results Abnormal [facility] Potassium [Moles/Vol] 4.5 mmol/L 3.7 - 5.3 mmol/L [facility] Protein [Mass/Vol] 6.7 g/dL 6.4 - 8.3 g/dL [facility] Sodium [Moles/Vol] 141 mmol/L 135 - 144 mmol/L [facility] Urea nitrogen [Mass/Vol] 41 mg/dL High 6 - 20 mg/dL [facility] Urea nitrogen/Creatinine (Bld) [Mass ratio] 49 High 9 - 20 [facility] Magnesiumon 12-26-2022 Magnesium [Mass/Vol] 2.0 mg/dL Normal 1.6-2.6 [facility] Comment on above: Performed By: #### C P, CBC, ANURADHA, MG ####[facility] [place] [address] lab Director: Samuel Ayers MD Magnesium [Mass/Vol] 2.0 mg/dL 1.6 - 2 .6 mg/dL [facility] No Panel Informationon 12-26 [facility] Phosphoruson 12-26-2022 Phosphate [Mass/Vol] 4.0 mg/dL 2.6 - 4 .5 mg/dL [facility] Phosphorus, Inorg.on 12-26- 023 Phosphorus, Inorg. 4.0 mg/dL Normal 2.6-4.5 [facility] Comment on above: Performed By: #### C P, CBC, ANURADHA, MG ####[address] , [place] [id number] [facility] Director: Samuel Ayers MD CNOVon 12-23-2022 CNOV Normal [facility] CBC with Diffon 12-19-2022 Abs. Basophil 0.12 k/uL Normal 0.00-0.20 [facility] Comment on above: Performed By: #### M G, CP, CDP, ANURADHA ####[address] , [facility]83 lab Director: Samuel Ayers MD Abs.Imm.Granulocyte 0.03 k/uL Normal 0.00-0.30 [facility] Comment on above: Performed By: #### M G, CP, CDP, ANURADHA ####[address] , [facility]83 Lab Director: Samuel Ayers MD Abs.Neutrophil (Seg) 5.90 k/uL Normal 1.50-8.10 [facility] Comment on above: Performed By: #### M G, CP, CDP, ANURADHA ####[address] , [facility]83 Lab Director: Samuel Ayers MD Basophils/100 WBC (Bld) 1 % Normal 0-2 [facility] Comment on above: Performed By: #### M G, CP, CDP, ANURADHA ####[address] , [place] [id number] Lab Director: Samuel Ayers MD Eosinophils (Bld) [#/Vol] 0.35 10*3/uL Normal 0.00-0.44 [facility] Comment on above: Performed By: #### M G, CP, CDP, ANURADHA ####[address] [place] [address] Lab Director: Samuel Ayers MD Eosinophils/100 WBC (Bld) 4 % Normal 1-4 [facility] Comment on above: Performed By: #### M Leo, CP, CDP, ANURADHA ####[address] , [place] [address] Lab Director: Samuel Ayers MD Erythrocyte distribution width (RBC) [Ratio] 14.7 % High 11.8-14.4 [facility] Comment on above: Performed By: #### M Leo, TYLER, CDP, ANURADHA ####[address] , [facility]83 Lab Director: Samuel Ayers MD Hematocrit (Bld) [Volume fraction] 35.7 % Low 36.3-47.1 [facility] Comment on above: Performed By: #### Catherine Bailey, CP, CDP, ANURADHA ####[address] , [facility]83 Lab Director: Samuel Ayers MD Hemoglobin (Bld) [Mass/Vol] 10.9 g/dL Low 11.9-15.1 [facility] Comment on above: Performed By: #### Catherine Bailey, TYLER, CDP, ANURADHA ####[address] , [place] [address])[phone] Director: Samuel Ayers MD Immature granulocytes/100 WBC (Bld) 0 % Normal 0 [facility] Comment on above: Performed By: #### M Leo, CP, CDP, ANURADHA ####[address] , [facility]83 Lab Director: Samuel Ayers MD Lymphocytes (Bld) [#/Vol] 2.24 10*3/uL Normal 1.10-3.70 [facility] Comment on above: Performed By: #### M G, CP, CDP, ANURADHA ####[address] [place] [address] Lab Director: Samuel Ayers MD Lymphocytes/100 WBC (Bld) 23 % Low 24-43 [facility] Comment on above: Performed By: #### M G, CP, CDP, ANURADHA ####[address] , [place] [address])[phone] Director: Samuel Ayers MD MCH (RBC) [Entitic mass] 28.2 pg Normal 25.2-33.5 [facility] Comment on above: Performed By: #### M G, CP, CDP, ANURADHA ####[address] , [facility]83[facility])[phone] Director: Samuel Ayers MD MCHC (RBC) [Mass/Vol] 30.5 g/dL Normal 28.4-34.8 [facility] Comment on above: Performed By: #### M Leo, CP, CDP, ANURADHA ####[address] , [place] [address])[phone] Director: Samuel Ayers MD MCV (RBC) [Entitic vol] 92.2 fL Normal 82.6-102.9 [facility] Comment on above: Performed By: #### M Leo, CP, CDP, ANURADHA ####[address] , [place] [address])[phone] Director: Samuel Ayers MD Monocytes (Bld) [#/Vol] 0.95 10*3/uL Normal 0.10-1.20 [facility] Comment on above: Performed By: #### M G, CP, CDP, ANURADHA ####[address] , [place] [id number] Lab Director: Samuel Ayers MD Monocytes/100 WBC (Bld) 10 % Normal 3-12 [facility] Comment on above: Performed By: #### M G, CP, CDP, ANURADHA ####[address] [place] [address] Lab Director: Samuel Ayers MD Neutrophil (Seg) 62 % Normal 36-65 [facility] Comment on above: Performed By: #### M G, CP, CDP, ANURADHA ####[address] , [facility]83 Lab Director: Samuel Ayers MD NRBC Automated 0.0 per [address] [facility] Comment on above: Performed By: #### M G, CP, CDP, ANURADHA ####[address] , [facility]83 Lab Director: Samuel Ayers MD Platelet mean volume (Bld) [Entitic vol] 11.7 fL Normal 8.1-13.5 [facility] Comment on above: Performed By: #### M G, CP, CDP, ANURADHA ####[address] , [facility]83 Lab Director: Samuel Ayers MD Platelets (Bld) [#/Vol] 274 10*3/uL Normal 138-453 [facility] Comment on above: Performed By: #### M G, CP, CDP, ANURADHA ####[address] , [facility]83 Lab Director: Samuel Ayers MD RBC (Bld) [#/Vol] 3.87 10*6/uL Low 3.95-5.11 [facility] Comment on above: Performed By: #### M G, CP, CDP, ANURADHA ####[address] , [place] [id number] Lab Director: Samuel Ayers MD WBC (Bld) [#/Vol] 9.6 10*3/uL Normal 3.5-11.3 [facility] Comment on above: Performed By: #### M G, CP, CDP, ANURADHA ####[address] , [place] [id number] Lab Director: Samuel Ayers MD Comp Metabolic Profon 2022 Albumin [Mass/Vol] 3.8 g/dL Normal 3.5-5.2 [facility] Comment on above: Performed By: #### M G, CP, CDP, ANURADHA ####[address] , [place] 7684783 Lab Director: Samuel Ayers MD Albumin/Glob Ratio 1.0 Normal 1.0-2.5 [facility] Comment on above: Performed By: #### M G, CP, CDP, ANURADHA ####[address] , [place] 2649[address] Lab Director: Samuel Ayers MD Alkaline Phos 127 U/L High 35-104 [facility] Comment on above: Performed By: #### M G, CP, CDP, ANURADHA ####[address] [place] [address] Lab Director: Samuel Ayers MD ALT [Catalytic activity/Vol] 41 U/L High 5-33 [facility] Comment on above: Performed By: #### M G, CP, CDP, ANURADHA ####[address] , [place] [id number] Lab Director: Samuel Ayers MD Anion gap [Moles/Vol] 12 mmol/L Normal 9-17 [facility] Comment on above: Performed By: #### M G, CP, CDP, ANURADHA ####[address] , [place] 14[address]83 Lab Director: Samuel Ayers MD AST [Catalytic activity/Vol] 26 U/L Normal <32 [facility] Comment on above: Performed By: #### M G, CP, CDP, ANURADHA ####[address] , [place] [id number] [facility] Director: Samuel Ayers MD Bilirubin [Mass/Vol] 0.8 mg/dL Normal 0.3-1.2 [facility] Comment on above: Performed By: #### M G, CP, CDP, ANURADHA ####[address] [place] [address] Lab Director: Samuel Ayers MD BUN/CRE Ratio 52 High 9-20 [facility] Comment on above: Performed By: #### M G, CP, CDP, ANURADHA ####[address] , [place] [id number] Lab Director: Samuel Ayers MD Calcium [Mass/Vol] 9.9 mg/dL Normal 8.6-10.4 [facility] Comment on above: Performed By: #### M G, CP, CDP, ANURADHA ####[address] [place] [address] Lab Director: Samuel Ayers MD Chloride [Moles/Vol] 92 mmol/L Low 98-107 [facility] Comment on above: Performed By: #### M G, CP, CDP, ANURADHA ####[address] , [place] 594[address]83 Lab Director: Samuel Ayers MD CO2 [Moles/Vol] 36 mmol/L High 20-31 [facility] Comment on above: Performed By: #### M G, CP, CDP, ANURADHA ####[address] [place] [address] Lab Director: Samuel Ayers MD Creatinine [Mass/Vol] 1.16 mg/dL High 0.50-0.90 [facility] Comment on above: Performed By: #### M G, CP, CDP, ANURADHA ####[address] , [place] 056[address]83 Lab Director: Samuel Ayers MD GFR/1.73 sq M.predicted among non-blacks MDRD (S/P/Bld) [Vol rate/Area] 55 mL/min/{1.73_m2} Low >60 [facility] Comment on above: Result Comment: Thes e results are not intended for use in patients <18 years of age.eGFR results are calculated without a race factor using the 2020 CKD-EPI equation.Careful clinical correlation is recommended, particularly when comparing to results calculated using previous equations.The CKD-EPI equation is less accurate in patients with extremes of muscle mass, extra-renal metabolism of creatine, excessive creatine ingestion, or following therapy that affects renal tubular secretion. Performed By: #### M G, CP, CDP, ANURADHA ####[address] [place] [address] Lab Director: Samuel Ayers MD Glucose [Mass/Vol] 122 mg/dL High 70-99 [facility] Comment on above: Performed By: #### M G, CP, CDP, ANURADHA ####[address] , [place] 847[address]83 Lab Director: Samuel Ayers MD Potassium [Moles/Vol] 3.6 mmol/L Low 3.7-5.3 [facility] Comment on above: Performed By: #### M G, CP, CDP, ANURADHA ####[address] , [place] 0838[address] Lab Director: Samuel Ayers MD Protein [Mass/Vol] 7.6 g/dL Normal 6.4-8.3 [facility] Comment on above: Performed By: #### M G, CP, CDP, ANURADHA ####[address] [place] [address] Lab Director: Samuel Ayers MD Sodium [Moles/Vol] 140 mmol/L Normal 135-144 [facility] Comment on above: Performed By: #### M G, CP, CDP, ANURADHA ####[address] [place] [id number] [facility] Director: Samuel Ayers MD Urea nitrogen [Mass/Vol] 60 mg/dL High 6-20 [facility] Comment on above: Performed By: #### M Leo, CP, CDP, ANURADHA ####[facility] [place] [place] , [place] [address]83 lab Director: Samuel Ayers MD Magnesiumon 12-19-2022 Magnesium [Mass/Vol] 2.2 mg/dL Normal 1.6-2.6 [facility] Comment on above: Performed By: #### M Leo, CP, CDP, ANURADHA ####[facility] [place] [id number] lab Director: Samuel Ayers MD Phosphorus, Inorg.on 023 Phosphorus, Inorg. 5.0 mg/dL High 2.6-4.5 [facility] Comment on above: Performed By: #### M Leo, CP, CDP, ANURADHA ####[facility] [place] [place] , [facility]83 lab Director: Samuel Ayers MD CBC with Auto Differentialon 12-12-2022 Absolute Eos # 0.50 High [facility] Absolute Immature Granulocyte [facility] Absolute Lymph # 1.87 [facility] Absolute Graham # 0.65 [facility] Basophils (Bld) [#/Vol] 0.06 10*3/uL [facility] Basophils/100 WBC (Bld) 1 % 0 - 2 % [facility] Eosinophils/100 WBC (Bld) 7 % High 1 - 4 % [facility] Hematocrit (Bld) [Volume fraction] 32.5 % Low 36.3 - 47.1 % [facility] Hemoglobin (Bld) [Mass/Vol] 10.0 g/dL Low 11.9 - 15.1 g/dL [facility] Immature granulocytes/100 WBC (Bld) 0 % 0 [facility] Interpretation and review of laboratory results Abnormal [facility] Lymphocytes/100 WBC (Bld) 25 % 24 - 43 % [facility] MCH (RBC) [Entitic mass] 29.2 pg 25.2 - 33.5 pg [facility] MCHC (RBC) [Mass/Vol] 30.8 g/dL 28.4 - 34.8 g/dL [facility] MCV (RBC) [Entitic vol] 94.8 fL 82.6 - 102.9 fL [facility] Monocytes/100 WBC (Bld) 9 % 3 - 12 % [facility] NRBC Automated 0.0 0.0 per 100 WBC [facility] Platelet distribution width (Bld) [Ratio] 15.1 % High 11.8 - 14.4 % [facility] Platelet mean volume (Bld) [Entitic vol] 11.4 fL 8.1 - 13.5 fL [facility] Platelets (Bld) [#/Vol] 327 10*3/uL [facility] RBC (Bld) [#/Vol] 3.43 10*6/uL Low 3.95 - 5.11 m/uL [facility] Segmented neutrophils/100 WBC (Bld) 58 % 36 - 65 % [facility] Segs Absolute 4.37 [facility] WBC (Bld) [#/Vol] 7.5 10*3/uL [facility] CBC with Diffon 12-12-2022 Abs. Basophil 0.06 k/uL Normal 0.00-0.20 [facility] Comment on above: Performed By: #### C P, ANURADHA, MG, CDP ####[facility] [place] , [place] [id number] Lab Director: Samuel Ayers MD Abs.Imm.Granulocyte <0.03 Normal 0.00-0.30 [facility] Comment on above: Performed By: #### C P, ANURADHA, MG, CDP ####[facility] [place] , [place] 9959[address] Lab Director: Samuel Ayers MD Abs.Neutrophil (Seg) 4.37 k/uL Normal 1.50-8.10 [facility] Comment on above: Performed By: #### C P, ANURADHA, MG, CDP ####[address] , [facility]83 lab Director: Samuel Ayers MD Basophils/100 WBC (Bld) 1 % Normal 0-2 [facility] Comment on above: Performed By: #### C P, ANURADHA, MG, CDP ####[address] , [facility]83 lab Director: Samuel Ayers MD Eosinophils (Bld) [#/Vol] 0.50 10*3/uL High 0.00-0.44 [facility] Comment on above: Performed By: #### C P, ANURADHA, MG, CDP ####[address] , [place] [address] lab Director: Samuel Ayers MD Eosinophils/100 WBC (Bld) 7 % High 1-4 [facility] Comment on above: Performed By: #### C P, ANURADHA, MG, CDP ####[address] , [facility]83 lab Director: Samuel Ayers MD Erythrocyte distribution width (RBC) [Ratio] 15.1 % High 11.8-14.4 [facility] Comment on above: Performed By: #### C P, ANURADHA, MG, CDP ####[address] , [facility]83 lab Director: Samuel Ayers MD Hematocrit (Bld) [Volume fraction] 32.5 % Low 36.3-47.1 [facility] Comment on above: Performed By: #### C P, ANURADHA, MG, CDP ####[address] , [facility]83 Lab Director: Samuel Ayers MD Hemoglobin (Bld) [Mass/Vol] 10.0 g/dL Low 11.9-15.1 [facility] Comment on above: Performed By: #### C P, ANURADHA, MG, CDP ####[address] [place] [address] lab Director: Samuel Ayers MD Immature granulocytes/100 WBC (Bld) 0 % Normal 0 [facility] Comment on above: Performed By: #### C P, ANURADHA, MG, CDP ####[address] , [facility]83 lab Director: Samuel Ayers MD Lymphocytes (Bld) [#/Vol] 1.87 10*3/uL Normal 1.10-3.70 [facility] Comment on above: Performed By: #### C P, ANURADHA, MG, CDP ####[address] , [facility]83 lab Director: Samuel Ayers MD Lymphocytes/100 WBC (Bld) 25 % Normal 24-43 [facility] Comment on above: Performed By: #### C P, ANURADHA, MG, CDP ####[address] , [facility]83 lab Director: Samuel Ayers MD MCH (RBC) [Entitic mass] 29.2 pg Normal 25.2-33.5 [facility] Comment on above: Performed By: #### C P, ANURADHA, MG, CDP ####[address] , [facility]83 lab Director: Samuel Ayers MD MCHC (RBC) [Mass/Vol] 30.8 g/dL Normal 28.4-34.8 [facility] Comment on above: Performed By: #### C P, ANURADHA, MG, CDP ####[address] [place] [address] lab Director: Samuel Ayers MD MCV (RBC) [Entitic vol] 94.8 fL Normal 82.6-102.9 [facility] Comment on above: Performed By: #### C P, ANURADHA, MG, CDP ####[address] , [facility]60([facility])[phone] Director: Samuel Ayers MD Monocytes (Bld) [#/Vol] 0.65 10*3/uL Normal 0.10-1.20 [facility] Comment on above: Performed By: #### C P, ANURADHA, MG, CDP ####[address] , [place] [address])[phone] Director: Samuel Ayers MD Monocytes/100 WBC (Bld) 9 % Normal 3-12 [facility] Comment on above: Performed By: #### C P, ANURADHA, MG, CDP ####[address] , [facility]83 [facility] Director: Samuel Ayers MD Neutrophil (Seg) 58 % Normal 36-65 [facility] Comment on above: Performed By: #### C P, ANURADHA, MG, CDP ####[address] , [place] [address])[phone] Director: Samuel Ayers MD NRBC Automated 0.0 per [address] [facility] Comment on above: Performed By: #### C P, ANURADHA, MG, CDP ####[address] , [place] [address])[phone] Director: Samuel Ayers MD Platelet mean volume (Bld) [Entitic vol] 11.4 fL Normal 8.1-13.5 [facility] Comment on above: Performed By: #### C P, ANURADHA, MG, CDP ####[address] [place] [address] Lab Director: Samuel Ayers MD Platelets (Bld) [#/Vol] 327 10*3/uL Normal 138-453 [facility] Comment on above: Performed By: #### C P, ANURADHA, MG, CDP ####[address] , [place] 889[address]83 Lab Director: Samuel Ayers MD RBC (Bld) [#/Vol] 3.43 10*6/uL Low 3.95-5.11 [facility] Comment on above: Performed By: #### C P, ANURADHA, MG, CDP ####[address] , [place] 4[address] lab Director: Samuel Ayers MD WBC (Bld) [#/Vol] 7.5 10*3/uL Normal 3.5-11.3 [facility] Comment on above: Performed By: #### C P, ANURADHA, MG, CDP ####[address] , [place] 6802[address] Lab Director: Samuel Ayers MD Comp Metabolic Profon 2022 Albumin [Mass/Vol] 3.3 g/dL Low 3.5-5.2 [facility] Comment on above: Performed By: #### C P, ANURADHA, MG, CDP ####[address] , [place] 490[address]83 Lab Director: Samuel Ayers MD Albumin/Glob Ratio 1.0 Normal 1.0-2.5 [facility] Comment on above: Performed By: #### C P, ANURADHA, MG, CDP ####[address] , [place] 50[address]83 Lab Director: Samuel Ayers MD Alkaline Phos 119 U/L High 35-104 [facility] Comment on above: Performed By: #### C P, ANURADHA, MG, CDP ####[address] , [place] [id number] Lab Director: Samuel Ayers MD ALT [Catalytic activity/Vol] 18 U/L Normal 5-33 [facility] Comment on above: Performed By: #### C P, ANURADHA, MG, CDP ####[address] , [place] 8260[address] [facility] Director: Samuel Ayers MD Anion gap [Moles/Vol] 8 mmol/L Low 9-17 [facility] Comment on above: Performed By: #### C P, ANURADHA, MG, CDP ####[address] , [place] 07[address]83 lab Director: Samuel Ayers MD AST [Catalytic activity/Vol] 17 U/L Normal <32 [facility] Comment on above: Performed By: #### C P, ANURADHA, MG, CDP ####[address] , [place] [address]186[address] lab Director: Samuel Ayers MD Bilirubin [Mass/Vol] 0.6 mg/dL Normal 0.3-1.2 [facility] Comment on above: Performed By: #### C P, ANURADHA, MG, CDP ####[address] , [place] 1925183 lab Director: Samuel Ayers MD BUN/CRE Ratio 43 High 9-20 [facility] Comment on above: Performed By: #### C P, ANURADHA, MG, CDP ####[address] , [place] 868[address]83 lab Director: Samuel Ayers MD Calcium [Mass/Vol] 9.7 mg/dL Normal 8.6-10.4 [facility] Comment on above: Performed By: #### C P, ANURADHA, MG, CDP ####[address] , [place] 486[address]83 lab Director: Samuel Ayers MD Chloride [Moles/Vol] 101 mmol/L Normal 98-107 [facility] Comment on above: Performed By: #### C P, ANURADHA, MG, CDP ####[address] [place] [address] Lab Director: Samuel Ayers MD CO2 [Moles/Vol] 31 mmol/L Normal 20-31 [facility] Comment on above: Performed By: #### C P, ANURADHA, MG, CDP ####[address] , [place] [address]83 lab Director: Samuel Ayers MD Creatinine [Mass/Vol] 0.97 mg/dL High 0.50-0.90 [facility] Comment on above: Performed By: #### C P, ANURADHA, MG, CDP ####[address] [place] [address] lab Director: Samuel Ayers MD GFR/1.73 sq M.predicted among non-blacks MDRD (S/P/Bld) [Vol rate/Area] mL/min/{1.73_m2} Normal >60 [facility] Comment on above: Result Comment: Thes e results are not intended for use in patients <18 years of age.eGFR results are calculated without a race factor using the 2020 CKD-EPI equation.Careful clinical correlation is recommended, particularly when comparing to results calculated using previous equations.The CKD-EPI equation is less accurate in patients with extremes of muscle mass, extra-renal metabolism of creatine, excessive creatine ingestion, or following therapy that affects renal tubular secretion. Performed By: #### C P, ANURADHA, MG, CDP ####[address] [place] [address] lab Director: Samuel Ayres MD Glucose [Mass/Vol] 101 mg/dL High 70-99 [facility] Comment on above: Performed By: #### C P, ANURADHA, MG, CDP ####[address] , [place] [address]86[address] lab Director: Samuel Ayers MD Potassium [Moles/Vol] 4.5 mmol/L Normal 3.7-5.3 [facility] Comment on above: Performed By: #### C P, ANURADHA, MG, CDP ####[facility] [place] [address] Lab Director: Samuel Ayers MD Protein [Mass/Vol] 6.7 g/dL Normal 6.4-8.3 [facility] Comment on above: Performed By: #### C P, ANURADHA, MG, CDP ####[facility] [place] , [place] [address] lab Director: Samuel Ayers MD Sodium [Moles/Vol] 140 mmol/L Normal 135-144 [facility] Comment on above: Performed By: #### C P, ANURADHA, MG, CDP ####[address] , [place] 489[address]83 lab Director: Samuel Ayers MD Urea nitrogen [Mass/Vol] 42 mg/dL High 6-20 [facility] Comment on above: Performed By: #### C P, ANURADHA, MG, CDP ####[address] , [place] 16[address] lab Director: Samuel Ayers MD Comprehensive Metabolic Pane [facility] 12-12-2022 Albumin [Mass/Vol] 3.3 g/dL Low 3.5 - 5.2 g/dL [facility] Albumin/Globulin [Mass ratio] 1.0 {ratio} 1.0 - 2.5 [facility] ALP [Catalytic activity/Vol] 119 U/L High 35 - 104 U/L [facility] ALT [Catalytic activity/Vol] 18 U/L 5 - 33 U/L [facility] Anion gap [Moles/Vol] 8 mmol/L Low 9 - 17 mmol/L [facility] AST [Catalytic activity/Vol] 17 U/L NINF - 32 U/L [facility] Bilirubin [Mass/Vol] 0.6 mg/dL 0.3 - 1 .2 mg/dL [facility] Calcium [Mass/Vol] 9.7 mg/dL 8.6 - 10. 4 mg/dL [facility] Chloride [Moles/Vol] 101 mmol/L 98 - 10 7 mmol/L [facility] CO2 [Moles/Vol] 31 mmol/L 20 - 31 mmol/L [facility] Creatinine [Mass/Vol] 0.97 mg/dL High 0.50 - 0.90 mg/dL [facility] GFR/1.73 sq M.predicted MDRD (S/P/Bld) [Vol rate/Area] - PINF [facility] Comment on above: These results are not intended for use in patients <18 years of age. eGFR results are calculated without a race factor using the 2020 CKD-EPI equation. Careful clinical correlation is recommended, particularly when comparing to results calculated using previous equations. The CKD-EPI equation is less accurate in patients with extremes of muscle mass, extra-renal metabolism of creatine, excessive creatine ingestion, or following therapy that affects renal tubular secretion. Glucose [Mass/Vol] 101 mg/dL High 70 - 99 mg/dL [facility] Interpretation and review of laboratory results Abnormal [facility] Potassium [Moles/Vol] 4.5 mmol/L 3.7 - 5.3 mmol/L [facility] Protein [Mass/Vol] 6.7 g/dL 6.4 - 8.3 g/dL [facility] Sodium [Moles/Vol] 140 mmol/L 135 - 144 mmol/L [facility] Urea nitrogen [Mass/Vol] 42 mg/dL High 6 - 20 mg/dL [facility] Urea nitrogen/Creatinine (Bld) [Mass ratio] 43 High 9 - 20 [facility] Magnesiumon 12-12-2022 Magnesium [Mass/Vol] 2.2 mg/dL Normal 1.6-2.6 [facility] Comment on above: Performed By: #### C P, ANURADHA, MG, CDP ####[facility] [place] [address] lab Director: Samuel Ayers MD Magnesium [Mass/Vol] 2.2 mg/dL 1.6 - 2 .6 mg/dL [facility] No Panel Informationon 12-12 [facility] Phosphoruson 12-12-2022 Phosphate [Mass/Vol] 3.9 mg/dL 2.6 - 4 .5 mg/dL [facility] Phosphorus, Inorg.on 023 Phosphorus, Inorg. 3.9 mg/dL Normal 2.6-4.5 [facility] Comment on above: Performed By: #### C P, ANURADHA, MG, CDP ####[facility] [place] [address] [facility] Director: Samuel Ayers MD [facility] 12-09-2022 CNP Normal [facility] Manganeseon 12-09-2022 Manganese 10.2 ug/L Normal 4.2-16.5 [facility] Comment on above: Result Comment: (NOT E)TEST INFORMATION: Manganese, BloodElevated results may be due to skin or collection-relatedcontamination, including the use of a noncertified metal-freecollection/transport tube. If contamination concerns exist due toelevated levels of blood manganese, confirmation with a secondspecimen collected in a certified metal-free tube is recommended.This test was developed and its performance characteristicsdetermined by [facility]. It has not been cleared orapproved by the [place] Food and Drug Administration. This test wasperformed in a CLIA certified laboratory and is intended forclinical purposes.Performed By: [facility] [place] [address] [id number] Director: Kyle Ledesma MD, PhD Performed By: #### A LUKAS ####[facility] [place] [address] lab Director: Alfonso Perez MD [facility] 12-08-2022 [facility] Chromium, Serumon 12-07-2022 Chromium, Serum 1.4 ug/L Normal <=5.0 [facility] Comment on above: Result Comment: (NOT E)INTERPRETIVE INFORMATION: Chromium, SerumElevated results may be due to skin or collection-relatedcontamination, including the use of a noncertified metal-freecollection/transport tube. If contamination concerns exist due toelevated levels of serum chromium, confirmation with a secondspecimen collected in a certified metal-free tube is recommended.Serum chromium levels can be significantly higher in patients uufhlgqsi-es-axuvp total hip replacement implants than in controlpatients without metal implants. Serum chromium levels may beincreased in asymptomatic patients with xirpy-wp-kyljq prostheticsand should be considered in the context of the overall clinicalscenario. Whole blood is the specimen type recommended by the U.S.Food and Drug Administration for assessing the risks bmnzlyy-bj-meufg hip implants in symptomatic patients.Symptoms associated with chromium toxicity vary based on route ofexposure and dose, and may include dermatitis, impairment ofpulmonary function, gastroenteritis, hepatic necrosis, bleeding,and acute tubular necrosis.This test was developed and its performance characteristicsdetermined by [facility]. It has not been cleared orapproved by the [place] Food and Drug Administration. This test wasperformed in a CLIA certified laboratory and is intended forclinical purposes.Performed By: [facility] [place], [place] [address]Sfndabtohy Director: Kyle Ledesma MD, PhD Performed By: #### A CHROM, ASEL, ACU, AZN ####[facility] [place] [address] Lab Director: Alfonso Perez MD#### ANURADHA, CP, CDP, MG, CRP ####[facility] [place] [address] Lab Director: Samuel Ayers MD Copperon 12-07-2022 Copper 86.1 ug/dL Normal 80.0-155.0 [facility] Comment on above: Result Comment: (NOT E)INTERPRETIVE INFORMATION: Copper, Serum or PlasmaElevated results may be due to skin or collection-relatedcontamination, including the use of a noncertified metal-freecollection/transport tube. If contamination concerns exist due toelevated levels of serum/plasma copper, confirmation with a secondspecimen collected in a certified metal-free tube is recommended.Serum copper may be elevated with infection, inflammation, stress,and copper supplementation. In females, elevated copper may alsobe caused by oral contraceptives and (concentrations maybe elevated up to 3 times normal during the third trimester).This test was developed and its performance characteristicsdetermined by [facility]. It has not been cleared orapproved by the [place] Food and Drug Administration. This test wasperformed in a CLIA certified laboratory and is intended forclinical purposes.Performed By: [facility] [place] [address]75[address]Kzomupeqev Director: Kyle Ledesma MD, PhD Performed By: #### A CHROM, ASEL, ACU, AZN ####[facility] [address] [place] [address] Lab Director: Alfonso Perez MD#### ANURADHA, CP, CDP, MG, CRP ####[facility] [place] [address] lab Director: Samuel Ayers MD Seleniumon 12-07-2022 Selenium 119.4 ug/L Normal 23.0-190.0 [facility] Comment on above: Result Comment: (NOT E)INTERPRETIVE INFORMATION: Selenium, Serum or PlasmaElevated results may be due to contamination from skin or othercollection-related issues, including the use of a noncertifiedmetal-free collection/transport tube. If contamination concernsexist due to elevated levels of serum/plasma selenium,confirmation with a second specimen collected in a certifiedmetal-free tube is recommended.Serum selenium levels can be used in the determination ofdeficiency or toxicity. Plasma and serum contains 75 percent ofthe selenium measured in whole blood and reflects recent dietaryintake. Selenium deficiency can occur endemically or as a resultof sustained TPN or restricted diets and has been associated withcardiomyopathy and may exacerbate hypothyroidism. Seleniumtoxicity is relatively rare. Excess intake of selenium can resultin symptoms consistent with selenosis and include gastrointestinalupset, hair loss, white blotchy nails, and mild nerve damage.This test was developed and its performance characteristicsdetermined by [facility]. It has not been cleared orapproved by the [place] Food and Drug Administration. This test wasperformed in a CLIA certified laboratory and is intended forclinical purposes.Performed By: [facility] [place] [address] 28591Cltsqdbiuw Director: Kyle Ledesma MD, PhD Performed By: #### A CHROM, ASEL, ACU, AZN ####[address] [address] Lab Director: Alfonso Perez MD#### ANURADHA, CP, CDP, MG, CRP ####[facility] [place] [address] Lab Director: Samuel Ayers MD Zinc, Serumon 12-07-2022 Zinc, Serum 86.4 ug/dL Normal 60.0-120.0 [facility] Comment on above: Result Comment: (NOT E)INTERPRETIVE INFORMATION: Zinc, Serum or PlasmaElevated results may be due to skin or collection-relatedcontamination, including the use of a noncertified metal-freecollection/transport tube. If contamination concerns exist due toelevated levels of serum/plasma zinc, confirmation with a secondspecimen collected in a certified metal-free tube is recommended.Circulating zinc concentrations are dependent on albumin statusand are depressed with malnutrition. Zinc may also be loweredwith infection, inflammation, stress, oral contraceptives, andpregnancy. Zinc may be elevated with zinc supplementation orfasting. Elevated zinc concentrations may interfere with copperabsorption.This test was developed and its performance characteristicsdetermined by [facility]. It has not been cleared orapproved by the [place] Food and Drug Administration. This test wasperformed in a CLIA certified laboratory and is intended forclinical purposes.Performed By: [facility] [place] [address] 03[address]Ljsmesxcrb Director: Kyle Ledesma MD, PhD Performed By: #### A CHROM, ASEL, ACU, AZN ####[facility] [address] [place] [address] Lab Director: Alfonso Perez MD#### ANURADHA, CP, CDP, MG, CRP ####[facility] [place] [address] lab Director: Samuel Ayers MD C-Reactive Proteinon 023 CRP [Mass/Vol] mg/L Normal 0.0-5.0 [facility] Comment on above: Performed By: #### A CHROM, ASEL, ACU, AZN ####[facility] [address] [place] [address] Lab Director: Alfonso Perez MD#### ANURADHA, CP, CDP, MG, CRP ####[address] [place], [place] [address] Lab Director: Samuel Ayers MD CBC with Diffon 12-05-2022 Abs. Basophil 0.08 k/uL Normal 0.00-0.20 [facility] Comment on above: Performed By: #### A CHROM, ASEL, ACU, AZN ####[facility] [address] [place] [address] 479[address] Lab Director: Alfonso Perez MD#### ANURADHA, CP, CDP, MG, CRP ####[address] , [place] [id number] lab Director: Samuel Ayers MD Abs.Imm.Granulocyte <0.03 Normal 0.00-0.30 [facility] Comment on above: Performed By: #### A CHROM, ASEL, ACU, AZN ####[facility] [address] [place] [address] Lab Director: Alfonso Perez MD#### ANURADHA, CP, CDP, MG, CRP ####[address] [place], [place] 1785[address] lab Director: Samuel Ayers MD Abs.Neutrophil (Seg) 3.06 k/uL Normal 1.50-8.10 [facility] Comment on above: Performed By: #### A CHROM, ASEL, ACU, AZN ####[facility] [address] [place] [address] Lab Director: Alfonso Perez MD#### ANURADHA, CP, CDP, MG, CRP ####[address] , [place] 666[address]83 Lab Director: Samuel Ayers MD Basophils/100 WBC (Bld) 1 % Normal 0-2 [facility] Comment on above: Performed By: #### A CHROM, ASEL, ACU, AZN ####[facility] [address] [place] [address] Lab Director: Alfonso Perez MD#### ANURADHA, CP, CDP, MG, CRP ####[address] [place] [address] Lab Director: Samuel Ayers MD Eosinophils (Bld) [#/Vol] 0.55 10*3/uL High 0.00-0.44 [facility] Comment on above: Performed By: #### A CHROM, ASEL, ACU, AZN ####[facility] [address] [place] [address] 11437 Lab Director: Alfonso Perez MD#### ANURADHA, CP, CDP, MG, CRP ####[address] [place] [address] Lab Director: Samuel Ayers MD Eosinophils/100 WBC (Bld) 8 % High 1-4 [facility] Comment on above: Performed By: #### A CHROM, ASEL, ACU, AZN ####[facility] [address] [place] [address] Lab Director: Alfonso Perez MD#### ANURADHA, CP, CDP, MG, CRP ####[address] [place] [address] Lab Director: Samuel Ayers MD Erythrocyte distribution width (RBC) [Ratio] 15.6 % High 11.8-14.4 [facility] Comment on above: Performed By: #### A CHROM, ASEL, ACU, AZN ####[facility] [address] [place] [address] Lab Director: Alfonso Perez MD#### ANURADHA, CP, CDP, MG, CRP ####[address] [place], [place] 27[address] Lab Director: Samuel Ayers MD Hematocrit (Bld) [Volume fraction] 29.0 % Low 36.3-47.1 [facility] Comment on above: Performed By: #### A CHROM, ASEL, ACU, AZN ####[facility] [address] [place] [address] Lab Director: Alfonso Perez MD#### ANURADHA, CP, CDP, MG, CRP ####[address] [place] [id number] Lab Director: Samuel Ayers MD Hemoglobin (Bld) [Mass/Vol] 8.9 g/dL Low 11.9-15.1 [facility] Comment on above: Performed By: #### A CHROM, ASEL, ACU, AZN ####[facility] [address] [place] [address] Lab Director: Alfonso Perez MD#### ANURADHA, CP, CDP, MG, CRP ####[address] [place] [address] Lab Director: Samuel Ayers MD Immature granulocytes/100 WBC (Bld) 0 % Normal 0 [facility] Comment on above: Performed By: #### A CHROM, ASEL, ACU, AZN ####[facility] [address] [place] [address] Lab Director: Alfonso Perez MD#### ANURADHA, CP, CDP, MG, CRP ####[address] [place] [address] Lab Director: Samuel Ayers MD Lymphocytes (Bld) [#/Vol] 2.08 10*3/uL Normal 1.10-3.70 [facility] Comment on above: Performed By: #### A CHROM, ASEL, ACU, AZN ####[facility] [address] [place] [address] Lab Director: Alfonso Perez MD#### ANURADHA, CP, CDP, MG, CRP ####[address] [place] [address] Lab Director: Samuel Ayers MD Lymphocytes/100 WBC (Bld) 32 % Normal 24-43 [facility] Comment on above: Performed By: #### A CHROM, ASEL, ACU, AZN ####[facility] [address] [address] Lab Director: Alfonso Perez MD#### ANURADHA, CP, CDP, MG, CRP ####[address] [place] [id number] lab Director: Samuel Ayers MD MCH (RBC) [Entitic mass] 29.1 pg Normal 25.2-33.5 [facility] Comment on above: Performed By: #### A CHROM, ASEL, ACU, AZN ####[facility] [address] [address] Lab Director: Alfonso Perez MD#### ANURADHA, CP, CDP, MG, CRP ####[address] [place] [address] lab Director: Samuel Ayers MD MCHC (RBC) [Mass/Vol] 30.7 g/dL Normal 28.4-34.8 [facility] Comment on above: Performed By: #### A CHROM, ASEL, ACU, AZN ####[facility] [address] [place] [address] [id number] Lab Director: Alfonso Perez MD#### ANURADHA, CP, CDP, MG, CRP ####[facility] [place] , [place] 6038[address] Lab Director: Samuel Ayers MD MCV (RBC) [Entitic vol] 94.8 fL Normal 82.6-102.9 [facility] Comment on above: Performed By: #### A CHROM, ASEL, ACU, AZN ####[facility] [address] [place] [address] Lab Director: Alfonso Perez MD#### ANURADHA, CP, CDP, MG, CRP ####[address] , [facility]83 Lab Director: Samuel Ayers MD Monocytes (Bld) [#/Vol] 0.80 10*3/uL Normal 0.10-1.20 [facility] Comment on above: Performed By: #### A CHROM, ASEL, ACU, AZN ####[facility] [address] [place] [address] Lab Director: Alfonso Perez MD#### ANURADHA, CP, CDP, MG, CRP ####[address] , [facility]83 Lab Director: Samuel Ayers MD Monocytes/100 WBC (Bld) 12 % Normal 3-12 [facility] Comment on above: Performed By: #### A CHROM, ASEL, ACU, AZN ####[facility] [address] [place] [address] Lab Director: Alfonso Perez MD#### ANURADHA, CP, CDP, MG, CRP ####[address] [place] [address] Lab Director: Samuel Ayers MD Neutrophil (Seg) 47 % Normal 36-65 [facility] Comment on above: Performed By: #### A CHROM, ASEL, ACU, AZN ####[facility] [address] [place] [address] Lab Director: Alfonso Perez MD#### ANURADHA, CP, CDP, MG, CRP ####[address] [place] [address] Lab Director: Samuel Ayers MD NRBC Automated 0.0 per [address] [facility] Comment on above: Performed By: #### A CHROM, ASEL, ACU, AZN ####[facility] [address] [place] [address] Lab Director: Alfonso Perez MD#### ANURADHA, CP, CDP, MG, CRP ####[address] , [facility]83 Lab Director: Samuel Ayers MD Platelet mean volume (Bld) [Entitic vol] 10.7 fL Normal 8.1-13.5 [facility] Comment on above: Performed By: #### A CHROM, ASEL, ACU, AZN ####[facility] [address] [place] [address] Lab Director: Alfonso Perez MD#### ANURADHA, CP, CDP, MG, CRP ####[address] , [facility]83 Lab Director: Samuel Ayers MD Platelets (Bld) [#/Vol] 489 10*3/uL High 138-453 [facility] Comment on above: Performed By: #### A CHROM, ASEL, ACU, AZN ####[facility] [address] [place] [address] Lab Director: Alfonso Perez MD#### ANURADHA, CP, CDP, MG, CRP ####[address] [place] [address] Lab Director: Samuel Ayers MD RBC (Bld) [#/Vol] 3.06 10*6/uL Low 3.95-5.11 [facility] Comment on above: Performed By: #### A CHROM, ASEL, ACU, AZN ####[facility] [address] [place] [address] lab Director: Alfonso Perez MD#### ANURADHA, CP, CDP, MG, CRP ####[address] [place] [address] Lab Director: Samuel Ayers MD WBC (Bld) [#/Vol] 6.6 10*3/uL Normal 3.5-11.3 [facility] Comment on above: Performed By: #### A CHROM, ASEL, ACU, AZN ####[facility] [address] [place] [address] lab Director: Alfonso Perez MD#### ANURADHA, CP, CDP, MG, CRP ####[address] [place] [address] lab Director: Samuel Ayers MD Comp Metabolic Profon 2022 Albumin [Mass/Vol] 3.0 g/dL Low 3.5-5.2 [facility] Comment on above: Performed By: #### A CHROM, ASEL, ACU, AZN ####[facility] [address] [place] [address] [id number] lab Director: Alfonso Perez MD#### ANURADHA, CP, CDP, MG, CRP ####[address] [place] [address] lab Director: Samuel Ayers MD Albumin/Glob Ratio 1.0 Normal 1.0-2.5 [facility] Comment on above: Performed By: #### A CHROM, ASEL, ACU, AZN ####[facility] [address] [place], [place] [address] Lab Director: Alfonso Perez MD#### ANURADHA, CP, CDP, MG, CRP ####[address] [place] [address] Lab Director: Samuel Ayers MD Alkaline Phos 121 U/L High 35-104 [facility] Comment on above: Performed By: #### A CHROM, ASEL, ACU, AZN ####[facility] [address] [place] [address] Lab Director: Alfonso Perez MD#### ANURADHA, CP, CDP, MG, CRP ####[address] [place] [address] Lab Director: Samuel Ayers MD ALT [Catalytic activity/Vol] 15 U/L Normal 5-33 [facility] Comment on above: Performed By: #### A CHROM, ASEL, ACU, AZN ####[facility] [address] [place] [address] lab Director: Alfonso Perez MD#### ANURADHA, CP, CDP, MG, CRP ####[address] , [facility]83 lab Director: Samuel Ayers MD Anion gap [Moles/Vol] 8 mmol/L Low 9-17 [facility] Comment on above: Performed By: #### A CHROM, ASEL, ACU, AZN ####[facility] [address] [place] [address] Lab Director: Alfonso Perez MD#### ANURADHA, CP, CDP, MG, CRP ####[address] , [facility]83 Lab Director: Samuel Ayers MD AST [Catalytic activity/Vol] 16 U/L Normal <32 [facility] Comment on above: Performed By: #### A CHROM, ASEL, ACU, AZN ####[facility] [address] [place] [address] 304[address] Lab Director: Alfonso Perez MD#### ANURADHA, CP, CDP, MG, CRP ####[address] [place] [address] Lab Director: Samuel Ayers MD Bilirubin [Mass/Vol] 0.5 mg/dL Normal 0.3-1.2 [facility] Comment on above: Performed By: #### A CHROM, ASEL, ACU, AZN ####[facility] [address] [place] [address] Lab Director: Alfonso Perez MD#### ANURADHA, CP, CDP, MG, CRP ####[address] [place] [address] Lab Director: Samuel Ayers MD BUN/CRE Ratio 50 High 9-20 [facility] Comment on above: Performed By: #### A CHROM, ASEL, ACU, AZN ####[facility] [address] [place] [address] 60570 Lab Director: Alfonso Perez MD#### ANURADHA, CP, CDP, MG, CRP ####[address] [place] [address] lab Director: Samuel Ayers MD Calcium [Mass/Vol] 9.3 mg/dL Normal 8.6-10.4 [facility] Comment on above: Performed By: #### A CHROM, ASEL, ACU, AZN ####[facility] [address] [place] [address]21 lab Director: Alfonso Perez MD#### ANURADHA, CP, CDP, MG, CRP ####[address] [place] [address] lab Director: Samuel Ayers MD Chloride [Moles/Vol] 97 mmol/L Low 98-107 [facility] Comment on above: Performed By: #### A CHROM, ASEL, ACU, AZN ####[facility] [address] [place] [address] Lab Director: Alfonso Perez MD#### ANURADHA, CP, CDP, MG, CRP ####[address] , [place] 3949483 Lab Director: Samuel Ayers MD CO2 [Moles/Vol] 34 mmol/L High 20-31 [facility] Comment on above: Performed By: #### A CHROM, ASEL, ACU, AZN ####[facility] [address] [place] [address] 740[address] lab Director: Alfonso Perez MD#### ANURADHA, CP, CDP, MG, CRP ####[address] [place] [id number] Lab Director: Samuel Ayers MD Creatinine [Mass/Vol] 0.82 mg/dL Normal 0.50-0.90 [facility] Comment on above: Performed By: #### A CHROM, ASEL, ACU, AZN ####[facility] [address] [place] [address] Lab Director: Alfonso Perez MD#### ANURADHA, CP, CDP, MG, CRP ####[address] , [facility]83 [facility] Director: Samuel Ayers MD GFR/1.73 sq M.predicted among non-blacks MDRD (S/P/Bld) [Vol rate/Area] mL/min/{1.73_m2} Normal >60 [facility] Comment on above: Result Comment: Thes e results are not intended for use in patients <18 years of age.eGFR results are calculated without a race factor using the 2020 CKD-EPI equation.Careful clinical correlation is recommended, particularly when comparing to results calculated using previous equations.The CKD-EPI equation is less accurate in patients with extremes of muscle mass, extra-renal metabolism of creatine, excessive creatine ingestion, or following therapy that affects renal tubular secretion. Performed By: #### A CHROM, ASEL, ACU, AZN ####[facility] [address] [place] [address] Lab Director: Alfonso Perez MD#### ANURADHA, CP, CDP, MG, CRP ####[address] [place], [place] 9444[address] Lab Director: Samuel Ayers MD Glucose [Mass/Vol] 107 mg/dL High 70-99 [facility] Comment on above: Performed By: #### A CHROM, ASEL, ACU, AZN ####[facility] [address] [place] [address] Lab Director: Alfonso Perez MD#### ANURADHA, CP, CDP, MG, CRP ####[address] [place] [address] Lab Director: Samuel Ayers MD Potassium [Moles/Vol] 3.6 mmol/L Low 3.7-5.3 [facility] Comment on above: Performed By: #### A CHROM, ASEL, ACU, AZN ####[facility] [address] [place] [address] 97233 Lab Director: Alfonso Perez MD#### ANURADHA, CP, CDP, MG, CRP ####[address] , [place] 6776183 Lab Director: Samuel Ayers MD Protein [Mass/Vol] 6.1 g/dL Low 6.4-8.3 [facility] Comment on above: Performed By: #### A CHROM, ASEL, ACU, AZN ####[facility] [address] [place] [address] [id number] Lab Director: Alfonso Perez MD#### ANURADHA, CP, CDP, MG, CRP ####[address] [place] [address] lab Director: Samuel Ayers MD Sodium [Moles/Vol] 139 mmol/L Normal 135-144 [facility] Comment on above: Performed By: #### A CHROM, ASEL, ACU, AZN ####[facility] [address] [place], [place] [id number] lab Director: Alfonso Perez MD#### ANURADHA, CP, CDP, MG, CRP ####[address] [place] [address] lab Director: Samuel Ayers MD Urea nitrogen [Mass/Vol] 41 mg/dL High 6-20 [facility] Comment on above: Performed By: #### A CHROM, ASEL, ACU, AZN ####[facility] [address] [place] [address] [id number] lab Director: Alfonso Perez MD#### ANURADHA, CP, CDP, MG, CRP ####[address] [place] [address] lab Director: Samuel Ayers MD Magnesiumon 12-05-2022 Magnesium [Mass/Vol] 2.0 mg/dL Normal 1.6-2.6 [facility] Comment on above: Performed By: #### A CHROM, ASEL, ACU, AZN ####[facility] [address] [place] [address] [id number] Lab Director: Alfonso Perez MD#### ANURADHA, CP, CDP, MG, CRP ####[address] [place] [address] lab Director: Samuel Ayers MD Phosphorus, Inorg.on 023 Phosphorus, Inorg. 3.4 mg/dL Normal 2.6-4.5 [facility] Comment on above: Performed By: #### A CHROM, ASEL, ACU, AZN ####[facility] [address] [place] [address] Lab Director: Alfonso Perez MD#### ANURADHA, CP, CDP, MG, CRP ####[facility] [place] [address] Lab Director: Samuel Ayers MD CNPNon 12-02-2022 CNPN Normal [facility] CNPNon 12-01-2022 CNPN Normal [facility] CNNURSEon 11-30-2022 CNNURSE Normal [facility] CNOVon 11-30-2022 CNOV Normal [facility] CBC with Auto Differentialon 11-28-2022 Absolute Eos # 0.35 [facility] Absolute Immature Granulocyte 0.10 [facility] Absolute Lymph # 2.73 [facility] Absolute Graham # 1.07 [facility] Basophils (Bld) [#/Vol] 0.10 10*3/uL [facility] Basophils/100 WBC (Bld) 1 % 0 - 2 % [facility] Eosinophils/100 WBC (Bld) 2 % 1 - 4 % [facility] Hematocrit (Bld) [Volume fraction] 34.8 % Low 36.3 - 47.1 % [facility] Hemoglobin (Bld) [Mass/Vol] 10.9 g/dL Low 11.9 - 15.1 g/dL [facility] Immature granulocytes/100 WBC (Bld) 1 % High 0 [facility] Interpretation and review of laboratory results Abnormal [facility] Lymphocytes/100 WBC (Bld) 17 % Low 24 - 43 % [facility] MCH (RBC) [Entitic mass] 29.3 pg 25.2 - 33.5 pg [facility] MCHC (RBC) [Mass/Vol] 31.3 g/dL 28.4 - 34.8 g/dL [facility] MCV (RBC) [Entitic vol] 93.5 fL 82.6 - 102.9 fL [facility] Monocytes/100 WBC (Bld) 7 % 3 - 12 % [facility] NRBC Automated 0.0 0.0 per 100 WBC [facility] Platelet distribution width (Bld) [Ratio] 17.3 % High 11.8 - 14.4 % [facility] Platelet mean volume (Bld) [Entitic vol] 10.9 fL 8.1 - 13.5 fL [facility] Platelets (Bld) [#/Vol] 815 10*3/uL High [facility] RBC (Bld) [#/Vol] 3.72 10*6/uL Low 3.95 - 5.11 m/uL [facility] Segmented neutrophils/100 WBC (Bld) 72 % High 36 - 65 % [facility] Segs Absolute 11.43 High [facility] WBC (Bld) [#/Vol] 15.8 10*3/uL High [facility] CBC with Diffon 11-28-2022 Abs. Basophil 0.10 k/uL Normal 0.00-0.20 [facility] Comment on above: Performed By: #### C P, ANURADHA, MG, CDP ####[address] [place] [id number] Lab Director: Samuel Ayers MD Abs.Imm.Granulocyte 0.10 k/uL Normal 0.00-0.30 [facility] Comment on above: Performed By: #### C P, ANURADHA, MG, CDP ####[address] [place] [id number] Lab Director: Samuel Ayers MD Abs.Neutrophil (Seg) 11.43 k/uL High 1.50-8.10 [facility] Comment on above: Performed By: #### C P, ANURADHA, MG, CDP ####[address] [place] 3315583 Lab Director: Samuel Ayers MD Basophils/100 WBC (Bld) 1 % Normal 0-2 [facility] Comment on above: Performed By: #### C P, ANURADHA, MG, CDP ####[address] [place] [id number] [facility] Director: Samuel Ayers MD Eosinophils (Bld) [#/Vol] 0.35 10*3/uL Normal 0.00-0.44 [facility] Comment on above: Performed By: #### C P, ANURADHA, MG, CDP ####[address] , [place] [address] Lab Director: Samuel Ayers MD Eosinophils/100 WBC (Bld) 2 % Normal 1-4 [facility] Comment on above: Performed By: #### C P, ANURADHA, MG, CDP ####[address] [place] [address] lab Director: Samuel Ayers MD Erythrocyte distribution width (RBC) [Ratio] 17.3 % High 11.8-14.4 [facility] Comment on above: Performed By: #### C P, ANURADHA, MG, CDP ####[address] [place] [address] Lab Director: Samuel Ayers MD Hematocrit (Bld) [Volume fraction] 34.8 % Low 36.3-47.1 [facility] Comment on above: Performed By: #### C P, ANURADHA, MG, CDP ####[address] [place] [address] Lab Director: Samuel Ayers MD Hemoglobin (Bld) [Mass/Vol] 10.9 g/dL Low 11.9-15.1 [facility] Comment on above: Performed By: #### C P, ANURADHA, MG, CDP ####[address] [place] 33[address]83 Lab Director: Samuel Ayers MD Immature granulocytes/100 WBC (Bld) 1 % High 0 [facility] Comment on above: Performed By: #### C P, ANURADHA, MG, CDP ####[address] [id number] [facility] Director: Samuel Ayers MD Lymphocytes (Bld) [#/Vol] 2.73 10*3/uL Normal 1.10-3.70 [facility] Comment on above: Performed By: #### C P, ANURADHA, MG, CDP ####[address] [place] 33[address] Lab Director: Samuel Ayers MD Lymphocytes/100 WBC (Bld) 17 % Low 24-43 [facility] Comment on above: Performed By: #### C P, ANURADHA, MG, CDP ####[address] [place] [id number] lab Director: Samuel Ayers MD MCH (RBC) [Entitic mass] 29.3 pg Normal 25.2-33.5 [facility] Comment on above: Performed By: #### C P, ANURADHA, MG, CDP ####[address] [place], [place] [address])[phone] Director: Samuel Ayers MD MCHC (RBC) [Mass/Vol] 31.3 g/dL Normal 28.4-34.8 [facility] Comment on above: Performed By: #### C P, ANURADHA, MG, CDP ####[address] [place], [place] [address])[phone] Director: Samuel Ayers MD MCV (RBC) [Entitic vol] 93.5 fL Normal 82.6-102.9 [facility] Comment on above: Performed By: #### C P, ANURADHA, MG, CDP ####[address] , [place] 5563783 Lab Director: Samuel Ayers MD Monocytes (Bld) [#/Vol] 1.07 10*3/uL Normal 0.10-1.20 [facility] Comment on above: Performed By: #### C P, ANURADHA, MG, CDP ####[address] , [place] 642[address]83 Lab Director: Samuel Ayers MD Monocytes/100 WBC (Bld) 7 % Normal 3-12 [facility] Comment on above: Performed By: #### C P, ANURADHA, MG, CDP ####[address] [place] [address] Lab Director: Samuel Ayers MD Neutrophil (Seg) 72 % High 36-65 [facility] Comment on above: Performed By: #### C P, ANURADHA, MG, CDP ####[address] , [place] 0184283 Lab Director: Samule Ayers MD NRBC Automated 0.0 per [address] [facility] Comment on above: Performed By: #### C P, ANURADHA, MG, CDP ####[address] , [place] 1857683 Lab Director: Samuel Ayers MD Platelet mean volume (Bld) [Entitic vol] 10.9 fL Normal 8.1-13.5 [facility] Comment on above: Performed By: #### C P, ANURADHA, MG, CDP ####[address] , [place] 3022683 Lab Director: Samuel Ayers MD Platelets (Bld) [#/Vol] 815 10*3/uL High 138-453 [facility] Comment on above: Performed By: #### C P, ANURADHA, MG, CDP ####[address] , [place] 4087083 Lab Director: Samuel Ayers MD RBC (Bld) [#/Vol] 3.72 10*6/uL Low 3.95-5.11 [facility] Comment on above: Performed By: #### C P, ANURADHA, MG, CDP ####[address] [place] [address] lab Director: Samuel Ayers MD WBC (Bld) [#/Vol] 15.8 10*3/uL High 3.5-11.3 [facility] Comment on above: Performed By: #### C P, ANURADHA, MG, CDP ####[address] , [place] 8846183 Lab Director: Samuel Ayers MD Comp Metabolic Profon 2022 Albumin [Mass/Vol] 3.8 g/dL Normal 3.5-5.2 [facility] Comment on above: Performed By: #### C P, ANURADHA, MG, CDP ####[address] [place] [address] lab Director: Samuel Ayers MD Albumin/Glob Ratio 0.9 Low 1.0-2.5 [facility] Comment on above: Performed By: #### C P, ANURADHA, MG, CDP ####[address] , [place] 3228383 Lab Director: Samuel Ayers MD Alkaline Phos 232 U/L High 35-104 [facility] Comment on above: Performed By: #### C P, ANURADHA, MG, CDP ####[address] , [place] 8973783 Lab Director: Samuel Ayers MD ALT [Catalytic activity/Vol] 38 U/L High 5-33 [facility] Comment on above: Performed By: #### C P, ANURADHA, MG, CDP ####[address] , [place] 5532683 lab Director: Samuel Ayers MD Anion gap [Moles/Vol] 15 mmol/L Normal 9-17 [facility] Comment on above: Performed By: #### C P, ANURADHA, MG, CDP ####[address] , [place] 4158583 Lab Director: Samuel Ayers MD AST [Catalytic activity/Vol] 23 U/L Normal <32 [facility] Comment on above: Performed By: #### C P, ANURADHA, MG, CDP ####[address] , [place] 3880183 Lab Director: Samuel Ayers MD Bilirubin [Mass/Vol] 0.5 mg/dL Normal 0.3-1.2 [facility] Comment on above: Performed By: #### C P, ANURADHA, MG, CDP ####[address] , [place] 1946283 Lab Director: Samuel Ayers MD BUN/CRE Ratio 48 High 9-20 [facility] Comment on above: Performed By: #### C P, ANURADHA, MG, CDP ####[address] , [place] 0616783 Lab Director: Samuel Ayers MD Calcium [Mass/Vol] 10.1 mg/dL Normal 8.6-10.4 [facility] Comment on above: Performed By: #### C P, ANURADHA, MG, CDP ####[address] , [place] 2095583 Lab Director: Samuel Ayers MD Chloride [Moles/Vol] 94 mmol/L Low 98-107 [facility] Comment on above: Performed By: #### C P, ANURADHA, MG, CDP ####[address] , [place] 7632583 Lab Director: Samuel Ayers MD CO2 [Moles/Vol] 27 mmol/L Normal 20-31 [facility] Comment on above: Performed By: #### C P, ANURADHA, MG, CDP ####[address] , [place] 0234183 Lab Director: Samuel Ayers MD Creatinine [Mass/Vol] 1.10 mg/dL High 0.50-0.90 [facility] Comment on above: Performed By: #### C P, ANURADHA, MG, CDP ####[address] [place] [address] lab Director: Samuel Ayers MD GFR/1.73 sq M.predicted among non-blacks MDRD (S/P/Bld) [Vol rate/Area] 59 mL/min/{1.73_m2} Low >60 [facility] Comment on above: Result Comment: Thes e results are not intended for use in patients <18 years of age.eGFR results are calculated without a race factor using the 2020 CKD-EPI equation.Careful clinical correlation is recommended, particularly when comparing to results calculated using previous equations.The CKD-EPI equation is less accurate in patients with extremes of muscle mass, extra-renal metabolism of creatine, excessive creatine ingestion, or following therapy that affects renal tubular secretion. Performed By: #### C P, ANURADHA, MG, CDP ####[address] [place] [address] lab Director: Samuel Ayers MD Glucose [Mass/Vol] 150 mg/dL High 70-99 [facility] Comment on above: Performed By: #### C P, ANURADHA, MG, CDP ####[address] [place] [address] lab Director: Samuel Aeyrs MD Potassium [Moles/Vol] 3.9 mmol/L Normal 3.7-5.3 [facility] Comment on above: Performed By: #### C P, ANURADHA, MG, CDP ####[address] [place] [address] lab Director: Samuel Ayers MD Protein [Mass/Vol] 8.1 g/dL Normal 6.4-8.3 [facility] Comment on above: Performed By: #### C P, ANURADHA, MG, CDP ####[address] [place] [address] lab Director: Samuel Ayers MD Sodium [Moles/Vol] 136 mmol/L Normal 135-144 [facility] Comment on above: Performed By: #### C P, ANURADHA, MG, CDP ####[facility] [place] [address] lab Director: Samuel Ayers MD Urea nitrogen [Mass/Vol] 53 mg/dL High 6-20 [facility] Comment on above: Performed By: #### C P, ANURADHA, MG, CDP ####[facility] [place] [address] lab Director: Samuel Ayers MD Comprehensive Metabolic Pane [facility] 11-28-2022 Albumin [Mass/Vol] 3.8 g/dL 3.5 - 5.2 g/dL [facility] Albumin/Globulin [Mass ratio] 0.9 {ratio} Low 1.0 - 2.5 [facility] ALP [Catalytic activity/Vol] 232 U/L High 35 - 104 U/L [facility] ALT [Catalytic activity/Vol] 38 U/L High 5 - 33 U/L [facility] Anion gap [Moles/Vol] 15 mmol/L 9 - 17 mmol/L [facility] AST [Catalytic activity/Vol] 23 U/L NINF - 32 U/L [facility] Bilirubin [Mass/Vol] 0.5 mg/dL 0.3 - 1 .2 mg/dL [facility] Calcium [Mass/Vol] 10.1 mg/dL 8.6 - 10. 4 mg/dL [facility] Chloride [Moles/Vol] 94 mmol/L Low 98 - 10 7 mmol/L [facility] CO2 [Moles/Vol] 27 mmol/L 20 - 31 mmol/L [facility] Creatinine [Mass/Vol] 1.1 mg/dL High 0.50 - 0.90 mg/dL [facility] GFR/1.73 sq M.predicted MDRD (S/P/Bld) [Vol rate/Area] 59 mL/min/{1.73_m2} Low - PINF [facility] Comment on above: These results are not intended for use in patients <18 years of age. eGFR results are calculated without a race factor using the 2020 CKD-EPI equation. Careful clinical correlation is recommended, particularly when comparing to results calculated using previous equations. The CKD-EPI equation is less accurate in patients with extremes of muscle mass, extra-renal metabolism of creatine, excessive creatine ingestion, or following therapy that affects renal tubular secretion. Glucose [Mass/Vol] 150 mg/dL High 70 - 99 mg/dL [facility] Interpretation and review of laboratory results Abnormal [facility] Potassium [Moles/Vol] 3.9 mmol/L 3.7 - 5.3 mmol/L [facility] Protein [Mass/Vol] 8.1 g/dL 6.4 - 8.3 g/dL [facility] Sodium [Moles/Vol] 136 mmol/L 135 - 144 mmol/L [facility] Urea nitrogen [Mass/Vol] 53 mg/dL High 6 - 20 mg/dL [facility] Urea nitrogen/Creatinine (Bld) [Mass ratio] 48 High 9 - 20 [facility] Magnesiumon 11-28-2022 Magnesium [Mass/Vol] 2.1 mg/dL Normal 1.6-2.6 [facility] Comment on above: Performed By: #### C P, ANURADHA, MG, CDP ####[facility] [place] [address] lab Director: Samuel Ayers MD Magnesium [Mass/Vol] 2.1 mg/dL 1.6 - 2 .6 mg/dL [facility] No Panel Informationon 11-28 [facility] Phosphoruson 11-28-2022 Phosphate [Mass/Vol] 4.4 mg/dL 2.6 - 4 .5 mg/dL [facility] Phosphorus, Inorg.on 023 Phosphorus, Inorg. 4.4 mg/dL Normal 2.6-4.5 [facility] Comment on above: Performed By: #### C P, ANURADHA, MG, CDP ####[facility] [place] [address] lab Director: Samuel Ayers MD CASE MANAGEMon 11-23-2022 CASE MANAGEM Normal [facility] CBC W Auto Differential pane l (Bld)on 11-23-2022 Anisocytosis Ql (Bld) Present Normal [facility] Comment on above: Order Comment: Speci men Type: BLOOD SPECIMENOrdering Facility: [facility] Address: [address] [place] [address] Performed By: #### 5 7021-8 ####[facility] LABCLIA [id number] [place] [address] [place] Basophils (Bld) [#/Vol] 0.00 10*3/uL Normal <0.11 [facility] Comment on above: Order Comment: Speci men Type: BLOOD SPECIMENOrdering Facility: [facility] Address: [address] [place] [address] Performed By: #### 5 7021-8 ####[facility] LABCLIA [id number] [place] [address] [place] Basophils/100 WBC (Bld) 0.0 % Normal [facility] Comment on above: Order Comment: Speci men Type: BLOOD SPECIMENOrdering Facility: [facility] Address: [address] [place] [address] Performed By: #### 5 7021-8 ####[facility] LABCLIA [id number] [place] [address] [place] Differential cell count method Nom (Bld) Manual Normal [facility] Comment on above: Order Comment: Speci men Type: BLOOD SPECIMENOrdering Facility: [facility] Address: [address] [place], [place] [address] Performed By: #### 5 7021-8 ####[facility] LABCLIA [id number] [facility] [place] [address] [place] Eosinophils (Bld) [#/Vol] 0.78 10*3/uL High <0.46 [facility] Comment on above: Order Comment: Speci men Type: BLOOD SPECIMENOrdering Facility: [facility] Address: [address] Performed By: #### 5 7021-8 ####[facility] LABCLIA [id number] [place] [address] [place] Eosinophils/100 WBC (Bld) 6.0 % Normal [facility] Comment on above: Order Comment: Speci men Type: BLOOD SPECIMENOrdering Facility: [facility] Address: [address] Performed By: #### 5 7021-8 ####[facility] LABIA [id number] [place] [address] [place] Erythrocyte distribution width (RBC) [Ratio] 18.7 % High 11.5-15.0 [facility] Comment on above: Order Comment: Speci men Type: BLOOD SPECIMENOrdering Facility: [facility] Address: [address] [place], [place] [address] Performed By: #### 5 7021-8 ####[facility] LABIA [id number] [place] [address] [place] Hematocrit (Bld) [Volume fraction] 29.8 % Low 36.0-46.0 [facility] Comment on above: Order Comment: Speci men Type: BLOOD SPECIMENOrdering Facility: [facility] Address: [address] Performed By: #### 5 7021-8 ####[facility] LABIA [id number] [place] [address] [place] Hemoglobin (Bld) [Mass/Vol] 9.0 g/dL Low 11.5-15.5 [facility] Comment on above: Order Comment: Speci men Type: BLOOD SPECIMENOrdering Facility: [facility] Address: [address] [place], [place] [address] Performed By: #### 5 7021-8 ####[facility] LABCLIA [id number] [place] [address] [place] Lymphocytes (Bld) [#/Vol] 3.10 10*3/uL Normal 1.00-4.00 [facility] Comment on above: Order Comment: Speci men Type: BLOOD SPECIMENOrdering Facility: [facility] Address: [address] [place], [place] [address] Performed By: #### 5 7021-8 ####[facility] LABCLIA [id number] [address] [place] Lymphocytes/100 WBC (Bld) 24.0 % Normal [facility] Comment on above: Order Comment: Speci men Type: BLOOD SPECIMENOrdering Facility: [facility] Address: [address] [place], [place] [address] Performed By: #### 5 7021-8 ####[facility] LABIA [id number] [place] [address] [place] MCH (RBC) [Entitic mass] 28.0 pg Normal 26.0-34.0 [facility] Comment on above: Order Comment: Speci men Type: BLOOD SPECIMENOrdering Facility: [facility] Address: [address] [place], [place] [address] Performed By: #### 5 7021-8 ####[facility] LABIA [id number] [place] [address] [place] MCHC (RBC) [Mass/Vol] 30.2 g/dL Low 30.5-36.0 [facility] Comment on above: Order Comment: Speci men Type: BLOOD SPECIMENOrdering Facility: [facility] Address: [address] [place], [place] [address] Performed By: #### 5 7021-8 ####[facility] LABIA [id number] [id number] [address] [place] MCV (RBC) [Entitic vol] 92.5 fL Normal 80.0-100.0 [facility] Comment on above: Order Comment: Speci men Type: BLOOD SPECIMENOrdering Facility: [facility] Address: [address] [place], [place] [address] Performed By: #### 5 7021-8 ####[facility] LABCLIA [id number] [place] [address] [place] Monocytes (Bld) [#/Vol] 1.03 10*3/uL High <0.87 [facility] Comment on above: Order Comment: Speci men Type: BLOOD SPECIMENOrdering Facility: [facility] Address: [address] [place], [place] [address] Performed By: #### 5 7021-8 ####[facility] LABCLIA [id number] [address] [place] Monocytes/100 WBC (Bld) 8.0 % Normal [facility] Comment on above: Order Comment: Speci men Type: BLOOD SPECIMENOrdering Facility: [facility] Address: [address] [place], [place] [address] Performed By: #### 5 7021-8 ####[facility] LABCLIA [id number] [place] [address] [place] Neutrophils (Bld) [#/Vol] 8.15 10*3/uL High 1.45-7.50 [facility] Comment on above: Order Comment: Speci men Type: BLOOD SPECIMENOrdering Facility: [facility] Address: [address] [place], [place] [address] Performed By: #### 5 7021-8 ####[facility] LABCLIA [id number] [place] [address] [place] Neutrophils/100 WBC (Bld) 63.0 % Normal [facility] Comment on above: Order Comment: Speci men Type: BLOOD SPECIMENOrdering Facility: [facility] Address: [address] Performed By: #### 5 7021-8 ####[facility] LABIA [id number] [address] Nucleated RBC (Bld) [#/Vol] 10*3/uL Normal <0.01 [facility] Comment on above: Order Comment: Speci men Type: BLOOD SPECIMENOrdering Facility: [facility] Address: [address] Performed By: #### 5 7021-8 ####[facility] LABIA [id number] [address] [place] Nucleated RBC/100 WBC (Bld) [Ratio] 0.0 /100 WBC Normal [facility] Comment on above: Order Comment: Speci men Type: BLOOD SPECIMENOrdering Facility: [facility] Address: [address] [place], [place] [address] Performed By: #### 5 7021-8 ####[facility] LABIA [id number] [address] [place] Ovalocytes LM Ql (Bld) Few Normal [facility] Comment on above: Order Comment: Speci men Type: BLOOD SPECIMENOrdering Facility: [facility] Address: [address] [place], [place] [address] Performed By: #### 5 7021-8 ####[facility] LABIA [id number] [address] [place] Platelet mean volume (Bld) [Entitic vol] 10.9 fL Normal 9.0-12.7 [facility] Comment on above: Order Comment: Speci men Type: BLOOD SPECIMENOrdering Facility: [facility] Address: [address] [place], [place] [address] Performed By: #### 5 7021-8 ####[facility] LABIA [id number] [place] [address] [place] Platelets (Bld) [#/Vol] 458 10*3/uL High 150-400 [facility] Comment on above: Order Comment: Speci men Type: BLOOD SPECIMENOrdering Facility: [facility] Address: [address] [place] [address] Performed By: #### 5 7021-8 ####[facility] LABCLIA [id number] [place] [address] [place] Platelets Estimate (Bld) [#/Vol] Increased Normal [facility] Comment on above: Order Comment: Speci men Type: BLOOD SPECIMENOrdering Facility: [facility] Address: [address] [place] [address] Performed By: #### 5 7021-8 ####[facility] LABCLIA [id number] [place] [address] [place] Polychromasia LM Ql (Bld) Slight Normal [facility] Comment on above: Order Comment: Speci men Type: BLOOD SPECIMENOrdering Facility: [facility] Address: [address] Performed By: #### 5 7021-8 ####[facility] LABCLIA [id number] [place] [address] [place] RBC (Bld) [#/Vol] 3.22 10*6/uL Low 3.90-5.20 [facility] Comment on above: Order Comment: Speci men Type: BLOOD SPECIMENOrdering Facility: [facility] Address: [address] Performed By: #### 5 7021-8 ####[facility] LABIA [id number] [place] [address] [place] RED CELL MORPH Reviewed: see result s of individual morphologies Normal [facility] Comment on above: Order Comment: Speci men Type: BLOOD SPECIMENOrdering Facility: [facility] Address: [address] Performed By: #### 5 7021-8 ####[facility] LABCLIA [id number] [place] [address] [place] SICKLE CELLS Few Abnormal None Seen [facility] Comment on above: Order Comment: Speci men Type: BLOOD SPECIMENOrdering Facility: [facility] Address: [address] [place] [address] Performed By: #### 5 7021-8 ####[facility] LABCLIA [id number] [place] [address] [place] Target cells LM Ql (Bld) Few Normal [facility] Comment on above: Order Comment: Speci men Type: BLOOD SPECIMENOrdering Facility: [facility] Address: [address] [place] [address] Performed By: #### 5 7021-8 ####[facility] LABCLIA [id number] [place] [address] [place] WBC (Bld) [#/Vol] 12.93 10*3/uL High 3.70-11.00 [facility] Comment on above: Order Comment: Speci men Type: BLOOD SPECIMENOrdering Facility: [facility] Address: [address] [place] [address] Performed By: #### 5 7021-8 ####[facility] LABCLIA [id number] [place] [address] [place] CNCOon 11-23-2022 CNCO Letter Text Normal [facility] Comprehensive metabolic 2000 panelon 11-23-2022 Albumin [Mass/Vol] 3.1 g/dL Low 3.9-4.[address] [facility] Comment on above: Order Comment: Speci men Type: BLOOD SPECIMENOrdering Facility: [facility] Address: [address] [place] [address] Performed By: #### 2 4323-8, 58495-1, 277- ####[facility] LABCLIA [id number] [place] [address] [place] ALP [Catalytic activity/Vol] 197 U/L High 34-123 [facility] Comment on above: Order Comment: Speci men Type: BLOOD SPECIMENOrdering Facility: [facility] Address: [address] [place] [address] Performed By: #### 2 4323-8, , 2776-10 ####[facility] LABCLIA [id number] [place] [address] [place] ALT [Catalytic activity/Vol] 39 U/L High 7-38 [facility] Comment on above: Order Comment: Speci men Type: BLOOD SPECIMENOrdering Facility: [facility] Address: [address] [place] [address] Performed By: #### 2 4323-8, , 2776-10 ####[facility] LABIA [id number] [place] [address] [place] Anion gap [Moles/Vol] 9 mmol/L Normal 9-18 [facility] Comment on above: Order Comment: Speci men Type: BLOOD SPECIMENOrdering Facility: [facility] Address: [address] [place] [address] Performed By: #### 2 4323-8, , 2776-10 ####[facility] LABCLIA [id number] [address] [place] AST [Catalytic activity/Vol] 19 U/L Normal 13-35 [facility] Comment on above: Order Comment: Speci men Type: BLOOD SPECIMENOrdering Facility: [facility] Address: [address] [place] [address] Performed By: #### 2 4323-8, , 2776- ####[facility] LABCLIA [id number] [place] [id number] [place] Bilirubin [Mass/Vol] 0.6 mg/dL Normal 0.2-1.3 [facility] Comment on above: Order Comment: Speci men Type: BLOOD SPECIMENOrdering Facility: [facility] Address: [address] [place] [address] Performed By: #### 2 432-8, , 2776-10 ####[facility] LABCLIA [id number] [place] [address] [place] Calcium [Mass/Vol] 9.5 mg/dL Normal 8.5-10.[address] [facility] Comment on above: Order Comment: Speci men Type: BLOOD SPECIMENOrdering Facility: [facility] Address: [address] [place] [address] Performed By: #### 2 4328, , 2776-10 ####[facility] LABCLIA [id number] [place] [address] [place] Chloride [Moles/Vol] 102 mmol/L Normal 97-105 [facility] Comment on above: Order Comment: Speci men Type: BLOOD SPECIMENOrdering Facility: [facility] Address: [address] [place], [place] [address] Performed By: #### 2 4328, , 2776-10 ####[facility] LABCLIA [id number] [place] [address] [place] CO2 [Moles/Vol] 25 mmol/L Normal 22-30 [facility] Comment on above: Order Comment: Speci men Type: BLOOD SPECIMENOrdering Facility: [facility] Address: [address] [place], [place] [address] Performed By: #### 2 432-8, , 2776-10 ####[facility] LABCLIA [id number] [place] [address] [place] Creatinine [Mass/Vol] 0.76 mg/dL Normal 0.58-0.96 [facility] Comment on above: Order Comment: Matti bernal Type: BLOOD SPECIMENOrdering Facility: [facility] Address: [address] [id number] Performed By: #### 2 4323-8, 42144-0, 2776-10 ####[facility] LABCLIA [id number] [place] [address] [place] ESTIMATED GLOMERULAR FILTRATION RATE 92 mL/min/1.73m??? Normal >=60 [facility] Comment on above: Order Comment: Matti bernal Type: BLOOD SPECIMENOrdering Facility: [facility] Address: [address] [place], [place] [address] Result Comment: Karen mated Glomerular Filtration Rate (eGFR) is calculated using the 2020 CKD-EPI creatinine equation. This equation utilizes serum creatinine, sex, and age as parameters. The creatinine assay has traceable calibration to isotope dilution-mass spectrometry. Refer to KDIGO guidelines for clinical interpretation. In patients with unstable renal function, e.g. those with acute kidney injury, the eGFR may not accurately reflect actual GFR. Performed By: #### 2 4323-8, , 2776-10 ####[facility] LABCLIA [id number] [place] [address] [place] Glucose [Mass/Vol] 178 mg/dL High 74-[address] [facility] Comment on above: Order Comment: Matti bernal Type: BLOOD SPECIMENOrdering Facility: [facility] Address: [address] [place], [place] [address] Result Comment: The [place] Diabetes Association (ADA) provides guidance for cutoff values for fasting glucose and random glucose. The ADA defines fasting as no caloric intake for at least 8 hours. Fasting plasma glucose results between 100 to 125 mg/dL indicate increased risk for diabetes (prediabetes).Fasting plasma glucose results greater than or equal to 126 mg/dL meet the criteria for diagnosis of diabetes. In the absence of unequivocal hyperglycemia, results should be confirmed by repeat testing. In a patient with classic symptoms of hyperglycemia or hyperglycemic crisis, random plasma glucose results greater than or equal to 200 mg/dL meet the criteria for diagnosis of diabetes.Reference: Standards of Medical Care in Diabetes 2016, [place] [employer] Association. Diabetes Care. 2016.39(Suppl 1). Performed By: #### 2 4323-8, , 2776-10 ####[facility] LABCLIA [id number] [address] [address] [place] Potassium [Moles/Vol] 4.5 mmol/L Normal 3.7-5.1 [facility] Comment on above: Order Comment: Speci men Type: BLOOD SPECIMENOrdering Facility: [facility] Address: [address] [place] [address] Performed By: #### 2 4323-8, , 2776-10 ####[facility] LABCLIA [id number] [place] [address] [place] Protein [Mass/Vol] 6.8 g/dL Normal 6.3-8.[address] [facility] Comment on above: Order Comment: Speci men Type: BLOOD SPECIMENOrdering Facility: [facility] Address: [address] [place] [address] Performed By: #### 2 8, , 2776-10 ####[facility] LABCLIA [id number] [place] [address] [place] Sodium [Moles/Vol] 136 mmol/L Normal 136-[address] [facility] Comment on above: Order Comment: Speci men Type: BLOOD SPECIMENOrdering Facility: [facility] Address: [address] [place] [address] Performed By: #### 2 4323-8, , 2776-10 ####[facility] LABCLIA [id number] [address] [address] [place] Urea nitrogen [Mass/Vol] 31 mg/dL High 7-21 [facility] Comment on above: Order Comment: Speci men Type: BLOOD SPECIMENOrdering Facility: [facility] Address: [place] [address] Performed By: #### 2 4323-8, 31038-9, 2777-1 ####[facility] LABCLIA [id number] [address] [address] [facility] Magnesium SerPl-mCncon 11-23 Magnesium [Mass/Vol] 2.2 mg/dL Normal 1.7-2.3 [facility] Comment on above: Order Comment: Matti bernal Type: BLOOD SPECIMENOrdering Facility: [facility] Address: [address] [place] [address] Performed By: #### 2 4323-8, 61252-9, 2777-1 ####[facility] LABIA [id number] [place] [address] [place] PT EDon 11-23-2022 PT ED Normal [facility] PT ED Normal [facility] PT panel Coag (PPP)on 2022 INR Coag (PPP) [Relative time] {INR} Low 0.9-1.3 [facility] Comment on above: Order Comment: Matti bernal Type: BLOOD SPECIMENOrdering Facility: [facility] Address: [address] [place], [place] [address] Result Comment: Sandra min K Antagonist (VKA) Therapeutic Range: INR 2 to 3 (Target INR of 2.5)Note: For patients treated with VKA drugs, such as warfarin, the [place] [employer] 2012 Guideline recommends a therapeutic INR range of 2 to 3 (target INR of 2.5). This recommendation includes high-risk patients with antiphospholipid syndrome with previous arterial or venous thromboembolism, current-generation mechanical or bioprosthetic aortic heart valve replacement.Note: Patients with mechanical aortic valve replacement and additional risk factors for thromboembolic events (atrial fibrillation, previous thromboembolism, LV dysfunction, hypercoagulable conditions) or an older generation mechanical AVR (i.e., ball in-Cage) or any mechanical MVR should have a INR therapeutic range of 2.5 to 3.5 (target INR of 3).Linda DELVALLE, et al. Chest 2012, 141:7S-47SDaniel RA, et al. JACC 2017, 70: 252-289 Performed By: #### 3 4528-0 ####[facility] LABCLIA [id number] [place] [id number] [place] PT Coag (PPP) [Time] 9.6 s Low 9.7-13.0 [facility] Comment on above: Order Comment: Speci men Type: BLOOD SPECIMENOrdering Facility: [facility] Address: [address] [place] [address] Result Comment: Resu lt rechecked.Sample checked for clot. Performed By: #### 3 4528-0 ####[facility] LABIA [id number] [place] [address] [place] Phosphate SerPl-mCncon 11-23 Phosphate [Mass/Vol] 4.7 mg/dL Normal 2.7-4.8 [facility] Comment on above: Order Comment: Speci men Type: BLOOD SPECIMENOrdering Facility: [facility] Address: [address] [place] [address] Performed By: #### 2 4323-8, 99789-5, 2777-1 ####[facility] LABIA [id number] [place] [address] [place] ALLIED HEALTHon 11-22-2022 ALLIED HEALTH Normal [facility] ALLIED HEALTH Normal [facility] CASE MANAGEMon 11-22-2022 CASE MANAGEM Normal [facility] CBC W Auto Differential pane l (Bld)on 11-22-2022 Anisocytosis Ql (Bld) Present Normal [facility] Comment on above: Order Comment: Speci men Type: BLOOD SPECIMENOrdering Facility: [facility] Address: [address] [place] [address] Performed By: #### 5 7021-8 ####[facility] LABCLIA [id number] [place] [address] [place] Basophils (Bld) [#/Vol] 0.26 10*3/uL High <0.11 [facility] Comment on above: Order Comment: Speci men Type: BLOOD SPECIMENOrdering Facility: [facility] Address: [address] [place] [address] Performed By: #### 5 7021-8 ####[facility] LABCLIA [id number] [facility] [place] [address] [place] Basophils/100 WBC (Bld) 2.0 % Normal [facility] Comment on above: Order Comment: Speci men Type: BLOOD SPECIMENOrdering Facility: [facility] Address: [address] [place] [address] Performed By: #### 5 7021-8 ####[facility] LABCLIA [id number] [place] [address] [place] Differential cell count method Nom (Bld) Manual Normal [facility] Comment on above: Order Comment: Speci men Type: BLOOD SPECIMENOrdering Facility: [facility] Address: [address] [place], [place] [address] Performed By: #### 5 7021-8 ####[facility] LABCLIA [id number] [place] [address] [place] Eosinophils (Bld) [#/Vol] 0.90 10*3/uL High <0.46 [facility] Comment on above: Order Comment: Speci men Type: BLOOD SPECIMENOrdering Facility: [facility] Address: [address] [place], [place] [address] Performed By: #### 5 7021-8 ####[facility] LABCLIA [id number] [place] [address] [place] Eosinophils/100 WBC (Bld) 7.0 % Normal [facility] Comment on above: Order Comment: Speci men Type: BLOOD SPECIMENOrdering Facility: [facility] Address: [address] Performed By: #### 5 7021-8 ####[facility] LABCLIA [id number] [place] [address] [place] Erythrocyte distribution width (RBC) [Ratio] 18.5 % High 11.5-15.0 [facility] Comment on above: Order Comment: Speci men Type: BLOOD SPECIMENOrdering Facility: [facility] Address: [address] Performed By: #### 5 7021-8 ####[facility] LABCLIA [id number] [place] [address] [place] Hematocrit (Bld) [Volume fraction] 28.3 % Low 36.0-46.0 [facility] Comment on above: Order Comment: Speci men Type: BLOOD SPECIMENOrdering Facility: [facility] Address: [address] [place], [place] [address] Performed By: #### 5 7021-8 ####[facility] LABCLIA [id number] [place] [address] [place] Hemoglobin (Bld) [Mass/Vol] 8.8 g/dL Low 11.5-15.5 [facility] Comment on above: Order Comment: Speci men Type: BLOOD SPECIMENOrdering Facility: [facility] Address: [address] [place], [place] [address] Performed By: #### 5 7021-8 ####[facility] LABCLIA [id number] [place] [address] [place] Lymphocytes (Bld) [#/Vol] 1.54 10*3/uL Normal 1.00-4.00 [facility] Comment on above: Order Comment: Speci men Type: BLOOD SPECIMENOrdering Facility: [facility] Address: [address] [place], [place] [address] Performed By: #### 5 7021-8 ####[facility] LABCLIA [id number] [place] [address] [place] Lymphocytes/100 WBC (Bld) 12.0 % Normal [facility] Comment on above: Order Comment: Speci men Type: BLOOD SPECIMENOrdering Facility: [facility] Address: [address] [place] [address] Performed By: #### 5 7021-8 ####[facility] LABIA [id number] [address] [place] MCH (RBC) [Entitic mass] 28.0 pg Normal 26.0-34.0 [facility] Comment on above: Order Comment: Speci men Type: BLOOD SPECIMENOrdering Facility: [facility] Address: [address] [place] [address] Performed By: #### 5 7021-8 ####[facility] [id number] [address] [place] [facility] MCHC (RBC) [Mass/Vol] 31.1 g/dL Normal 30.5-36.0 [facility] Comment on above: Order Comment: Speci men Type: BLOOD SPECIMENOrdering Facility: [facility] Address: [address] [place], [place] [address] Performed By: #### 5 7021-8 ####[facility] LABIA [id number] [place] [address] [place] MCV (RBC) [Entitic vol] 90.1 fL Normal 80.0-100.0 [facility] Comment on above: Order Comment: Speci men Type: BLOOD SPECIMENOrdering Facility: [facility] Address: [address] [place], [place] [address] Performed By: #### 5 7021-8 ####[facility] LABIA [id number] [place] [address] [place] Monocytes (Bld) [#/Vol] 1.03 10*3/uL High <0.87 [facility] Comment on above: Order Comment: Speci men Type: BLOOD SPECIMENOrdering Facility: [facility] Address: [address] Performed By: #### 5 7021-8 ####[facility] LABCLIA [id number] [place] [address] [place] Monocytes/100 WBC (Bld) 8.0 % Normal [facility] Comment on above: Order Comment: Speci men Type: BLOOD SPECIMENOrdering Facility: [facility] Address: [address] Performed By: #### 5 7021-8 ####[facility] LABCLIA [id number] [place] [address] [place] Neutrophils (Bld) [#/Vol] 9.10 10*3/uL High 1.45-7.50 [facility] Comment on above: Order Comment: Speci men Type: BLOOD SPECIMENOrdering Facility: [facility] Address: [address] Performed By: #### 5 7021-8 ####[facility] LABCLIA [id number] [place] [address] [place] Neutrophils/100 WBC (Bld) 71.0 % Normal [facility] Comment on above: Order Comment: Speci men Type: BLOOD SPECIMENOrdering Facility: [facility] Address: [address] Performed By: #### 5 7021-8 ####[facility] LABCLIA [id number] [place] [address] [place] Nucleated RBC (Bld) [#/Vol] 10*3/uL Normal <0.01 [facility] Comment on above: Order Comment: Speci men Type: BLOOD SPECIMENOrdering Facility: [facility] Address: [address] Performed By: #### 5 7021-8 ####[facility] LABCLIA [id number] [place] [address] [place] Nucleated RBC/100 WBC (Bld) [Ratio] 0.0 /100 WBC Normal [facility] Comment on above: Order Comment: Speci men Type: BLOOD SPECIMENOrdering Facility: [facility] Address: [address] [place], [place] [address] Performed By: #### 5 7021-8 ####[facility] LABIA [id number] [place] [address] [place] Ovalocytes LM Ql (Bld) Few Normal [facility] Comment on above: Order Comment: Speci men Type: BLOOD SPECIMENOrdering Facility: [facility] Address: [address] [place], [place] [address] Performed By: #### 5 7021-8 ####[facility] [id number] [place] [address] [place] Platelet mean volume (Bld) [Entitic vol] 10.7 fL Normal 9.0-12.7 [facility] Comment on above: Order Comment: Speci men Type: BLOOD SPECIMENOrdering Facility: [facility] Address: [address] [place] [address] Performed By: #### 5 7021-8 ####[facility] LABIA [id number] [place] [address] [place] Platelets (Bld) [#/Vol] 372 10*3/uL Normal 150-400 [facility] Comment on above: Order Comment: Speci men Type: BLOOD SPECIMENOrdering Facility: [facility] Address: [address] [place] [address] Performed By: #### 5 7021-8 ####[facility] LABIA [id number] [place] [address] [place] Platelets Estimate (Bld) [#/Vol] Adequate Normal [facility] Comment on above: Order Comment: Speci men Type: BLOOD SPECIMENOrdering Facility: [facility] Address: [address] [place], [place] [address] Performed By: #### 5 7021-8 ####[facility] LABCLIA [id number] [place] [address] [place] RBC (Bld) [#/Vol] 3.14 10*6/uL Low 3.90-5.20 [facility] Comment on above: Order Comment: Speci men Type: BLOOD SPECIMENOrdering Facility: [facility] Address: [address] [place], [place] [address] Performed By: #### 5 7021-8 ####[facility] LABIA [id number] [place] [address] [place] RED CELL MORPH Reviewed: see result s of individual morphologies Normal [facility] Comment on above: Order Comment: Speci men Type: BLOOD SPECIMENOrdering Facility: [facility] Address: [address] [place], [place] [address] Performed By: #### 5 7021-8 ####[facility] LABIA [id number] [place] [address] [place] WBC (Bld) [#/Vol] 12.82 10*3/uL High 3.70-11.00 [facility] Comment on above: Order Comment: Speci men Type: BLOOD SPECIMENOrdering Facility: [facility] Address: [address] [place], [place] [address] Performed By: #### 5 7021-8 ####[facility] LABIA [id number] [place] [address] [place] CONSULT PROGon 11-22-2022 CONSULT PROG Normal [facility] Comprehensive metabolic 2000 panelon 11-22-2022 Albumin [Mass/Vol] 3.4 g/dL Low 3.9-4.[address] [facility] Comment on above: Order Comment: Speci men Type: BLOOD SPECIMENOrdering Facility: [facility] Address: [address] [place] [address] Performed By: #### 1 9123-9, 2777-1, 8, 50877-9 ####[facility] LABCLIA [id number] [place] [address] [place] ALP [Catalytic activity/Vol] 207 U/L High 34-123 [facility] Comment on above: Order Comment: Speci men Type: BLOOD SPECIMENOrdering Facility: [facility] Address: [address] [place] [address] Performed By: #### 1 9123-9, 2777-1, 2570-8, 41815-0 ####[facility] LABIA [id number] [place] [address] [place] ALT [Catalytic activity/Vol] 49 U/L High 7-38 [facility] Comment on above: Order Comment: Speci men Type: BLOOD SPECIMENOrdering Facility: [facility] Address: [address] [place] [address] Performed By: #### 1 9123-9, 2777-1, 8, 65179-4 ####[facility] LABIA [id number] [place] [address] [place] Anion gap [Moles/Vol] 11 mmol/L Normal 9-18 [facility] Comment on above: Order Comment: Speci men Type: BLOOD SPECIMENOrdering Facility: [facility] Address: [address] [place] [address] Performed By: #### 1 9123-9, 2777-1, 8, 68001-7 ####[facility] LABCLIA [id number] [place] [address] [place] AST [Catalytic activity/Vol] 29 U/L Normal 13-35 [facility] Comment on above: Order Comment: Speci men Type: BLOOD SPECIMENOrdering Facility: [facility] Address: [address] Performed By: #### 1 9123-9, 2777-, 8, 58317-4 ####[facility] LABCLIA [id number] [place] [address] [place] Bilirubin [Mass/Vol] 0.7 mg/dL Normal 0.2-1.3 [facility] Comment on above: Order Comment: Speci men Type: BLOOD SPECIMENOrdering Facility: [facility] Address: [address] [place] [address] Performed By: #### 1 9123-9, 2777-, 8, 04675-5 ####[facility] LABCLIA [id number] [place] [address] [place] Calcium [Mass/Vol] 9.5 mg/dL Normal 8.5-10.[address] [facility] Comment on above: Order Comment: Speci men Type: BLOOD SPECIMENOrdering Facility: [facility] Address: [address] [place] [address] Performed By: #### 1 9123-9, 2777-, 8, 97601-4 ####[facility] LABCLIA [id number] [place] [address] [place] Chloride [Moles/Vol] 102 mmol/L Normal 97-105 [facility] Comment on above: Order Comment: Speci men Type: BLOOD SPECIMENOrdering Facility: [facility] Address: [address] Performed By: #### 1 9123-9, 277-, 8, ####[facility] LABCLIA [id number] [place] [address] [place] CO2 [Moles/Vol] 24 mmol/L Normal 22-30 [facility] Comment on above: Order Comment: Speci men Type: BLOOD SPECIMENOrdering Facility: [facility] Address: [address] Performed By: #### 1 9123-9, 2777-, 8, ####[facility] LABCLIA [id number] [place] [address] [place] Creatinine [Mass/Vol] 0.70 mg/dL Normal 0.58-0.96 [facility] Comment on above: Order Comment: Speci men Type: BLOOD SPECIMENOrdering Facility: [facility] Address: [address] [place] [address] Performed By: #### 1 9123-9, 27704-08, 2571-05, ####[facility] LABCLIA [id number] [place] [address] [place] [facility] ESTIMATED GLOMERULAR FILTRATION RATE 102 mL/min/1.73m??? Normal >=60 [facility] Comment on above: Order Comment: Speci men Type: BLOOD SPECIMENOrdering Facility: [facility] Address: [address] [place] [address] Result Comment: Karen mated Glomerular Filtration Rate (eGFR) is calculated using the 2020 CKD-EPI creatinine equation. This equation utilizes serum creatinine, sex, and age as parameters. The creatinine assay has traceable calibration to isotope dilution-mass spectrometry. Refer to KDIGO guidelines for clinical interpretation. In patients with unstable renal function, e.g. those with acute kidney injury, the eGFR may not accurately reflect actual GFR. Performed By: #### 1 9123-9, 2777-, 2571-05, ####[facility] LABCLIA [id number] [place] [address] [place] Glucose [Mass/Vol] 132 mg/dL High 74-[address] [facility] Comment on above: Order Comment: Speci men Type: BLOOD SPECIMENOrdering Facility: [facility] Address: [address] Result Comment: The [place] [employer] (ADA) provides guidance for cutoff values for fasting glucose and random glucose. The ADA defines fasting as no caloric intake for at least 8 hours. Fasting plasma glucose results between 100 to 125 mg/dL indicate increased risk for diabetes (prediabetes).Fasting plasma glucose results greater than or equal to 126 mg/dL meet the criteria for diagnosis of diabetes. In the absence of unequivocal hyperglycemia, results should be confirmed by repeat testing. In a patient with classic symptoms of hyperglycemia or hyperglycemic crisis, random plasma glucose results greater than or equal to 200 mg/dL meet the criteria for diagnosis of diabetes.Reference: Standards of Medical Care in Diabetes 2016, [place] [employer]. Diabetes Care. 2016.39(Suppl 1). Performed By: #### 1 9123-9, 27704-08, 2571-05, ####[facility] LABCLIA [id number] [place] [address] [place] Potassium [Moles/Vol] 4.6 mmol/L Normal 3.7-5.1 [facility] Comment on above: Order Comment: Speci men Type: BLOOD SPECIMENOrdering Facility: [facility] Address: [address] [id number] Performed By: #### 1 9123-9, 27704-08, 2571-05, ####[facility] LABIA [id number] [place] [address] [place] Protein [Mass/Vol] 6.8 g/dL Normal 6.3-8.[address] [facility] Comment on above: Order Comment: Speci men Type: BLOOD SPECIMENOrdering Facility: [facility] Address: [address] [place] [address] Performed By: #### 1 9123-9, 27704-08, 2571-05, ####[facility] LABCLIA [id number] [place] [id number] [place] Sodium [Moles/Vol] 137 mmol/L Normal 136-[address] [facility] Comment on above: Order Comment: Speci men Type: BLOOD SPECIMENOrdering Facility: [facility] Address: [place] [address] Performed By: #### 1 9123-9, 2777-1, 257-8, 46161-4 ####[facility] LABCLIA [id number] [place] [id number] [place] Urea nitrogen [Mass/Vol] 27 mg/dL High 7-21 [facility] Comment on above: Order Comment: Speci men Type: BLOOD SPECIMENOrdering Facility: [facility] Address: [address] [phone] Performed By: #### 1 9123-9, 277-1, 8, 48711-3 ####[facility] LABCLIA [id number] [place] [id number] [place] Magnesium SerPl-mCncon 11-22 Magnesium [Mass/Vol] 2.2 mg/dL Normal 1.7-2.3 [facility] Comment on above: Order Comment: Speci men Type: BLOOD SPECIMENOrdering Facility: [facility] Address: [address] [phone] Performed By: #### 1 9123-9, 2777-, 8, 88918-9 ####[facility] LABCLIA [id number] [place] [id number] [place] NURSING PROGon 11-22-2022 NURSING PROG Normal [facility] PT EDon 11-22-2022 PT ED Normal [facility] PT ED Normal [facility] PT ED Normal [facility] PT panel Coag (PPP)on 2022 INR Coag (PPP) [Relative time] {INR} Low 0.9-1.3 [facility] Comment on above: Order Comment: Speci men Type: BLOOD SPECIMENOrdering Facility: [facility] Address: [address] [place] [phone] Result Comment: Sandra min K Antagonist (VKA) Therapeutic Range: INR 2 to 3 (Target INR of 2.5)Note: For patients treated with VKA drugs, such as warfarin, the [place] [employer] 2012 Guideline recommends a therapeutic INR range of 2 to 3 (target INR of 2.5). This recommendation includes high-risk patients with antiphospholipid syndrome with previous arterial or venous thromboembolism, current-generation mechanical or bioprosthetic aortic heart valve replacement.Note: Patients with mechanical aortic valve replacement and additional risk factors for thromboembolic events (atrial fibrillation, previous thromboembolism, LV dysfunction, hypercoagulable conditions) or an older generation mechanical AVR (i.e., ball in-Cage) or any mechanical MVR should have a INR therapeutic range of 2.5 to 3.5 (target INR of 3).Linda GH, et al. Chest 2012, 141:7S-47SDaniel RA, et al. [facility] 2017, 70: 252-289 Performed By: #### 3 4528-0 ####[facility] LABCLIA [id number] [place] [address] [place] PT Coag (PPP) [Time] 9.4 s Low 9.7-13.0 [facility] Comment on above: Order Comment: Speci men Type: BLOOD SPECIMENOrdering Facility: [facility] Address: [address] [place] [address] Performed By: #### 3 4528-0 ####[facility] LABCLIA [id number] [place] [address] [place] Phosphate SerPl-mCncon 11-22 Phosphate [Mass/Vol] 4.0 mg/dL Normal 2.7-4.8 [facility] Comment on above: Order Comment: Speci men Type: BLOOD SPECIMENOrdering Facility: [facility] Address: [address] [place] [address] Performed By: #### 1 9123-9, 2777-1, 2571-8, 08437-1 ####[facility] LABCLIA [id number] [address] [place] Trigl SerPl-mCncon 3 Triglyceride [Mass/Vol] 300 mg/dL High <150 [facility] Comment on above: Order Comment: Speci men Type: BLOOD SPECIMENOrdering Facility: [facility] Address: [address] [place] [address] Result Comment: <150 mg/dL, Normal 150-199 mg/dL, Borderline high 200-499 mg/dL, High>499 mg/dL, Very highReference:1. National Cholesterol Education Program ATP III Guideline At-A-Glance Quick Desk Reference: National Heart, Lung, and Blood [place]. National Institutes of Health. 2001: NIH Publication No. 01-3305. Performed By: #### 1 9123-9, 2777-1, 2571-8, 16035-5 ####[facility] LABCLIA [id number] [address] [facility] Triglyceride [Mass/Vol]on FASTING TIME 6 hrs Normal [facility] Comment on above: Order Comment: Speci men Type: BLOOD SPECIMENOrdering Facility: [facility] Address: [address] [place] [address] Performed By: #### 1 9123-9, 2777-1, 2571-8, 31998-9 ####[facility] LABCLIA [id number] [address] [place] CASE MANAGEMon 11-21-2022 CASE MANAGEM Normal [facility] CBC W Auto Differential pane l (Bld)on 11-21-2022 Basophils (Bld) [#/Vol] 0.10 10*3/uL Normal <0.11 [facility] Comment on above: Order Comment: Speci men Type: BLOOD SPECIMENOrdering Facility: [facility] Address: [address] [place] [address] Performed By: #### 5 7021-8 ####[facility] LABCLIA [id number] [place] [address] [place] Basophils/100 WBC (Bld) 1.1 % Normal [facility] Comment on above: Order Comment: Speci men Type: BLOOD SPECIMENOrdering Facility: [facility] Address: [address] [place] [address] Performed By: #### 5 7021-8 ####[facility] LABCLIA [id number] [place] [address] [place] Differential cell count method Nom (Bld) Auto Normal [facility] Comment on above: Order Comment: Speci men Type: BLOOD SPECIMENOrdering Facility: [facility] Address: [address] [place] [address] Performed By: #### 5 7021-8 ####[facility] LABCLIA [id number] [place] [address] [place] Eosinophils (Bld) [#/Vol] 1.15 10*3/uL High <0.46 [facility] Comment on above: Order Comment: Speci men Type: BLOOD SPECIMENOrdering Facility: [facility] Address: [address] [place], [place] [phone] Performed By: #### 5 7021-8 ####[facility] LABCLIA [id number] [address] [place] Eosinophils/100 WBC (Bld) 12.6 % Normal [facility] Comment on above: Order Comment: Speci men Type: BLOOD SPECIMENOrdering Facility: [facility] Address: [address] [place], [place] [address] Performed By: #### 5 7021-8 ####[facility] LABCLIA [id number] [place] [address] [place] Erythrocyte distribution width (RBC) [Ratio] 18.5 % High 11.5-15.0 [facility] Comment on above: Order Comment: Speci men Type: BLOOD SPECIMENOrdering Facility: [facility] Address: [address] Performed By: #### 5 7021-8 ####[facility] LABCLIA [id number] [place] [address] [place] Hematocrit (Bld) [Volume fraction] 27.8 % Low 36.0-46.0 [facility] Comment on above: Order Comment: Speci men Type: BLOOD SPECIMENOrdering Facility: [facility] Address: [address] Performed By: #### 5 7021-8 ####[facility] LABIA [id number] [place] [address] [place] Hemoglobin (Bld) [Mass/Vol] 8.6 g/dL Low 11.5-15.5 [facility] Comment on above: Order Comment: Speci men Type: BLOOD SPECIMENOrdering Facility: [facility] Address: [address] [place], [place] [address] Performed By: #### 5 7021-8 ####[facility] LABIA [id number] [place] [address] [place] Immature granulocytes (Bld) [#/Vol] 0.15 10*3/uL High <0.10 [facility] Comment on above: Order Comment: Speci men Type: BLOOD SPECIMENOrdering Facility: [facility] Address: [address] [place], [place] [address] Performed By: #### 5 7021-8 ####[facility] LABIA [id number] [place] [address] [place] Immature granulocytes/100 WBC (Bld) 1.6 % Normal [facility] Comment on above: Order Comment: Speci men Type: BLOOD SPECIMENOrdering Facility: [facility] Address: [address] [place], [place] [address] Performed By: #### 5 7021-8 ####[facility] LABCLIA [id number] [place] [address] [place] Lymphocytes (Bld) [#/Vol] 2.38 10*3/uL Normal 1.00-4.00 [facility] Comment on above: Order Comment: Speci men Type: BLOOD SPECIMENOrdering Facility: [facility] Address: [address] [place] [address] Performed By: #### 5 7021-8 ####[facility] LABCLIA [id number] [address] [place] Lymphocytes/100 WBC (Bld) 26.0 % Normal [facility] Comment on above: Order Comment: Speci men Type: BLOOD SPECIMENOrdering Facility: [facility] Address: [address] [place] [address] Performed By: #### 5 7021-8 ####[facility] LABCLIA [id number] [address] [place] MCH (RBC) [Entitic mass] 27.9 pg Normal 26.0-34.0 [facility] Comment on above: Order Comment: Speci men Type: BLOOD SPECIMENOrdering Facility: [facility] Address: [address] [place] [address] Performed By: #### 5 7021-8 ####[facility] LABIA [id number] [place] [address] [place] MCHC (RBC) [Mass/Vol] 30.9 g/dL Normal 30.5-36.0 [facility] Comment on above: Order Comment: Speci men Type: BLOOD SPECIMENOrdering Facility: [facility] Address: [address] [place], [place] [address] Performed By: #### 5 7021-8 ####[facility] LABCLIA [id number] [place] [address] [place] MCV (RBC) [Entitic vol] 90.3 fL Normal 80.0-100.0 [facility] Comment on above: Order Comment: Speci men Type: BLOOD SPECIMENOrdering Facility: [facility] Address: [address] Performed By: #### 5 7021-8 ####[facility] LABCLIA [id number] [place] [address] [place] Monocytes (Bld) [#/Vol] 0.98 10*3/uL High <0.87 [facility] Comment on above: Order Comment: Speci men Type: BLOOD SPECIMENOrdering Facility: [facility] Address: [address] Performed By: #### 5 7021-8 ####[facility] LABCLIA [id number] [place] [address] [place] Monocytes/100 WBC (Bld) 10.7 % Normal [facility] Comment on above: Order Comment: Speci men Type: BLOOD SPECIMENOrdering Facility: [facility] Address: [address] Performed By: #### 5 7021-8 ####[facility] LABCLIA [id number] [place] [address] [place] Neutrophils (Bld) [#/Vol] 4.38 10*3/uL Normal 1.45-7.50 [facility] Comment on above: Order Comment: Speci men Type: BLOOD SPECIMENOrdering Facility: [facility] Address: [address] Performed By: #### 5 7021-8 ####[facility] LABCLIA [id number] [place] [address] [place] Neutrophils/100 WBC (Bld) 48.0 % Normal [facility] Comment on above: Order Comment: Speci men Type: BLOOD SPECIMENOrdering Facility: [facility] Address: [address] Performed By: #### 5 7021-8 ####[facility] LABCLIA [id number] [place] [address] [place] Nucleated RBC (Bld) [#/Vol] 10*3/uL Normal <0.01 [facility] Comment on above: Order Comment: Speci men Type: BLOOD SPECIMENOrdering Facility: [facility] Address: [address] [place], [place] [address] Performed By: #### 5 7021-8 ####[facility] LABCLIA [id number] [place] [address] [place] Nucleated RBC/100 WBC (Bld) [Ratio] 0.0 /100 WBC Normal [facility] Comment on above: Order Comment: Speci men Type: BLOOD SPECIMENOrdering Facility: [facility] Address: [address] [place], [place] [address] Performed By: #### 5 7021-8 ####[facility] LABIA [id number] [place] [address] [place] Platelet mean volume (Bld) [Entitic vol] 10.9 fL Normal 9.0-12.7 [facility] Comment on above: Order Comment: Speci men Type: BLOOD SPECIMENOrdering Facility: [facility] Address: [address] [place], [place] [address] Performed By: #### 5 7021-8 ####[facility] LABIA [id number] [place] [address] [place] Platelets (Bld) [#/Vol] 319 10*3/uL Normal 150-400 [facility] Comment on above: Order Comment: Speci men Type: BLOOD SPECIMENOrdering Facility: [facility] Address: [address] [place], [place] [address] Performed By: #### 5 7021-8 ####[facility] LABIA [id number] [place] [address] [place] RBC (Bld) [#/Vol] 3.08 10*6/uL Low 3.90-5.20 [facility] Comment on above: Order Comment: Speci men Type: BLOOD SPECIMENOrdering Facility: [facility] Address: [address] [place] [address] Performed By: #### 5 7021-8 ####[facility] LABCLIA [id number] [place] [address] [place] WBC (Bld) [#/Vol] 9.14 10*3/uL Normal 3.70-11.00 [facility] Comment on above: Order Comment: Speci men Type: BLOOD SPECIMENOrdering Facility: [facility] Address: [address] [place] [address] Performed By: #### 5 7021-8 ####[facility] LABCLIA [id number] [place] [address] [place] CONSULT PROGon 11-21-2022 CONSULT PROG Normal [facility] CRP SerPl-mCncon 11-21-2022 CRP [Mass/Vol] 5.5 mg/dL High <0.9 [facility] Comment on above: Order Comment: Speci men Type: BLOOD SPECIMENOrdering Facility: [facility] Address: [address] [place] [address] Performed By: #### 1 988-5, 56609-6, 2777-, 48326-4 ####[facility] LABCLIA [id number] [place] [address] [place] Comprehensive metabolic 2000 panelon 11-21-2022 Albumin [Mass/Vol] 3.3 g/dL Low 3.9-4.[address] [facility] Comment on above: Order Comment: Speci men Type: BLOOD SPECIMENOrdering Facility: [facility] Address: [address] [place] [address] Performed By: #### 1 988-5, 35677-5, 2777-, 96558-4 ####[facility] LABCLIA [id number] [place] [address] [place] ALP [Catalytic activity/Vol] 186 U/L High 34-123 [facility] Comment on above: Order Comment: Speci men Type: BLOOD SPECIMENOrdering Facility: [facility] Address: [address] [place] [address] Performed By: #### 1 988-5, 25272-2, 27704-08, 35799-4 ####[facility] LABCLIA [id number] [place] [address] [place] ALT [Catalytic activity/Vol] 48 U/L High 7-38 [facility] Comment on above: Order Comment: Speci men Type: BLOOD SPECIMENOrdering Facility: [facility] Address: [address] [place] [address] Performed By: #### 1 988-5, 32978-6, 2776-10, 88251-3 ####[facility] LABCLIA [id number] [place] [address] [place] Anion gap [Moles/Vol] 11 mmol/L Normal 9-18 [facility] Comment on above: Order Comment: Speci men Type: BLOOD SPECIMENOrdering Facility: [facility] Address: [address] [place] [address] Performed By: #### 1 988-5, 60675-1, 27704-08, 80708-6 ####[facility] LABCLIA [id number] [place] [address] [place] AST [Catalytic activity/Vol] 36 U/L High 13-35 [facility] Comment on above: Order Comment: Speci men Type: BLOOD SPECIMENOrdering Facility: [facility] Address: [address] [place] [address] Performed By: #### 1 988-5, 71132-5, 277-, 04605-6 ####[facility] LABCLIA [id number] [place] [address] [place] Bilirubin [Mass/Vol] 0.9 mg/dL Normal 0.2-1.3 [facility] Comment on above: Order Comment: Speci men Type: BLOOD SPECIMENOrdering Facility: [facility] Address: [address] [place] [address] Performed By: #### 1 988-5, 01432-6, 2776-10, 93608-5 ####[facility] LABCLIA [id number] [place] [address] [place] Calcium [Mass/Vol] 9.7 mg/dL Normal 8.5-10.[address] [facility] Comment on above: Order Comment: Speci men Type: BLOOD SPECIMENOrdering Facility: [facility] Address: [address] [place] [address] Performed By: #### 1 988-5, 91280-8, 2776-10, 64772-7 ####[facility] LABCLIA [id number] [place] [address] [place] Chloride [Moles/Vol] 102 mmol/L Normal 97-105 [facility] Comment on above: Order Comment: Speci men Type: BLOOD SPECIMENOrdering Facility: [facility] Address: [address] [place], [place] [address] Performed By: #### 1 988-5, 93584-8, 2776-10, 00694-5 ####[facility] LABCLIA [id number] [place] [address] [place] CO2 [Moles/Vol] 26 mmol/L Normal 22-30 [facility] Comment on above: Order Comment: Speci men Type: BLOOD SPECIMENOrdering Facility: [facility] Address: [address] [place] [address] Performed By: #### 1 988-5, 25995-6, 27704-08, 56430-5 ####[facility] LABCLIA [id number] [place] [id number] [place] Creatinine [Mass/Vol] 0.62 mg/dL Normal 0.58-0.96 [facility] Comment on above: Order Comment: Speci men Type: BLOOD SPECIMENOrdering Facility: [facility] Address: [address] [address] Performed By: #### 1 988-5, 71260-5, 2776-10, 91881-8 ####[facility] LABIA [id number] [place] [address] [place] ESTIMATED GLOMERULAR FILTRATION RATE 105 mL/min/1.73m??? Normal >=60 [facility] Comment on above: Order Comment: Matti bernal Type: BLOOD SPECIMENOrdering Facility: [facility] Address: [address] [place] [address] Result Comment: Karen mated Glomerular Filtration Rate (eGFR) is calculated using the 2020 CKD-EPI creatinine equation. This equation utilizes serum creatinine, sex, and age as parameters. The creatinine assay has traceable calibration to isotope dilution-mass spectrometry. Refer to KDIGO guidelines for clinical interpretation. In patients with unstable renal function, e.g. those with acute kidney injury, the eGFR may not accurately reflect actual GFR. Performed By: #### 1 988-5, 37394-1, 2776-10, 60891-4 ####[facility] LABIA [id number] [place] [id number] [place] Glucose [Mass/Vol] 111 mg/dL High 74-[address] [facility] Comment on above: Order Comment: Speci men Type: BLOOD SPECIMENOrdering Facility: [facility] Address: [address] [address] Result Comment: The [place] [employer] (ADA) provides guidance for cutoff values for fasting glucose and random glucose. The ADA defines fasting as no caloric intake for at least 8 hours. Fasting plasma glucose results between 100 to 125 mg/dL indicate increased risk for diabetes (prediabetes).Fasting plasma glucose results greater than or equal to 126 mg/dL meet the criteria for diagnosis of diabetes. In the absence of unequivocal hyperglycemia, results should be confirmed by repeat testing. In a patient with classic symptoms of hyperglycemia or hyperglycemic crisis, random plasma glucose results greater than or equal to 200 mg/dL meet the criteria for diagnosis of diabetes.Reference: Standards of Medical Care in Diabetes 2016, [place] [employer]. Diabetes Care. 2016.39(Suppl 1). Performed By: #### 1 988-5, 40905-0, 2776-10, 86203-2 ####[facility] LABCLIA [id number] [place] [address] [place] Potassium [Moles/Vol] 4.5 mmol/L Normal 3.7-5.1 [facility] Comment on above: Order Comment: Speci men Type: BLOOD SPECIMENOrdering Facility: [facility] Address: [address] [place] [address] Performed By: #### 1 988-5, 76810-6, 2776-10, 95557-3 ####[facility]CLIA [id number] [place] [address] [place] Protein [Mass/Vol] 6.6 g/dL Normal 6.3-8.[address] [facility] Comment on above: Order Comment: Matti bernal Type: BLOOD SPECIMENOrdering Facility: [facility] Address: [address] [place] [address] Performed By: #### 1 988-5, 72344-0, 2776-10, 75867-9 ####[facility]CLIA [id number] [place] [id number] [place] Sodium [Moles/Vol] 139 mmol/L Normal 136-[address] [facility] Comment on above: Order Comment: Sathishi men Type: BLOOD SPECIMENOrdering Facility: [facility] Address: [address] [place] [address] Performed By: #### 1 988-5, 59197-0, 2776-10, 44788-5 ####[facility]CLIA [id number] [place] [id number] [place] Urea nitrogen [Mass/Vol] 21 mg/dL Normal 7-21 [facility] Comment on above: Order Comment: Matti bernal Type: BLOOD SPECIMENOrdering Facility: [facility] Address: [address] [place] [address] Performed By: #### 1 988-5, 92152-6, 2777-1, 97297-5 ####[facility]CLIA [id number] [place] [id number] [place] Magnesium SerPl-mCncon 11-21 Magnesium [Mass/Vol] 2.1 mg/dL Normal 1.7-2.3 [facility] Comment on above: Order Comment: Matti bernal Type: BLOOD SPECIMENOrdering Facility: [facility] Address: [address] [place] [address] Performed By: #### 1 988-5, 51118-0, 2777-1, 86586-8 ####[facility] LABCLIA [id number] [place] [address] [place] PT panel Coag (PPP)on 2022 INR Coag (PPP) [Relative time] {INR} Low 0.9-1.3 [facility] Comment on above: Order Comment: Matti bernal Type: BLOOD SPECIMENOrdering Facility: [facility] Address: [address] [place] [address] Result Comment: Sandra min K Antagonist (VKA) Therapeutic Range: INR 2 to 3 (Target INR of 2.5)Note: For patients treated with VKA drugs, such as warfarin, the [employer] 2012 Guideline recommends a therapeutic INR range of 2 to 3 (target INR of 2.5). This recommendation includes high-risk patients with antiphospholipid syndrome with previous arterial or venous thromboembolism, current-generation mechanical or bioprosthetic aortic heart valve replacement.Note: Patients with mechanical aortic valve replacement and additional risk factors for thromboembolic events (atrial fibrillation, previous thromboembolism, LV dysfunction, hypercoagulable conditions) or an older generation mechanical AVR (i.e., ball in-Cage) or any mechanical MVR should have a INR therapeutic range of 2.5 to 3.5 (target INR of 3).Linda GH, et al. Chest 2012, 141:7S-47SNishcandice RA, et al. [facility] 2017, 70: 252-289Result rechecked.Sample checked for clot. Performed By: #### 3 4528-0 ####[facility] LABCLIA [id number] [place] [address] [place] PT Coag (PPP) [Time] 9.2 s Low 9.7-13.0 [facility] Comment on above: Order Comment: Speci men Type: BLOOD SPECIMENOrdering Facility: [facility] Address: [address] [place] [address] Performed By: #### 3 4528-0 ####[facility] LABCLIA [id number] [place] [address] [place] Phosphate SerPl-mCncon 11-21 Phosphate [Mass/Vol] 4.4 mg/dL Normal 2.7-4.8 [facility] Comment on above: Order Comment: Speci men Type: BLOOD SPECIMENOrdering Facility: [facility] Address: [address] [place] [address] Performed By: #### 1 988-5, 66897-6, 2777-1, 85480-3 ####[facility] LABCLIA [id number] [place] [address] [place] Prealb SerPl-mCncon 11-21-19 23 Prealbumin [Mass/Vol] 18 mg/dL Normal 17-36 [facility] Comment on above: Order Comment: Speci men Type: BLOOD SPECIMENOrdering Facility: [facility] Address: [address] [place] [address] Performed By: #### 1 4338-8 ####[facility] LABCLIA [id number] [place] [address] [place] CBC W Auto Differential pane l (Bld)on 11-20-2022 Basophils (Bld) [#/Vol] 0.07 10*3/uL Normal <0.11 [facility] Comment on above: Order Comment: Speci men Type: BLOOD SPECIMENOrdering Facility: [facility] Address: [address] [place] [address] Performed By: #### 5 7021-8 ####[facility] LABCLIA [id number] [place] [address] [place] Basophils/100 WBC (Bld) 0.6 % Normal [facility] Comment on above: Order Comment: Speci men Type: BLOOD SPECIMENOrdering Facility: [facility] Address: [address] [place] [address] Performed By: #### 5 7021-8 ####[facility] LABCLIA [id number] [place] [address] [place] Differential cell count method Nom (Bld) Auto Normal [facility] Comment on above: Order Comment: Speci men Type: BLOOD SPECIMENOrdering Facility: [facility] Address: [address] [place], [place] [address] Performed By: #### 5 7021-8 ####[facility] LABIA [id number] [place] [address] [place] Eosinophils (Bld) [#/Vol] 1.10 10*3/uL High <0.46 [facility] Comment on above: Order Comment: Speci men Type: BLOOD SPECIMENOrdering Facility: [facility] Address: [address] [place], [place] [address] Performed By: #### 5 7021-8 ####[facility] LABCLIA [id number] [place] [address] [place] Eosinophils/100 WBC (Bld) 10.1 % Normal [facility] Comment on above: Order Comment: Speci men Type: BLOOD SPECIMENOrdering Facility: [facility] Address: [address] [place], [place] [address] Performed By: #### 5 7021-8 ####[facility] LABIA [id number] [place] [address] [place] Erythrocyte distribution width (RBC) [Ratio] 18.9 % High 11.5-15.0 [facility] Comment on above: Order Comment: Speci men Type: BLOOD SPECIMENOrdering Facility: [facility] Address: [address] [place], [place] [address] Performed By: #### 5 7021-8 ####[facility] LABIA [id number] [place] [address] [place] Hematocrit (Bld) [Volume fraction] 26.1 % Low 36.0-46.0 [facility] Comment on above: Order Comment: Speci men Type: BLOOD SPECIMENOrdering Facility: [facility] Address: [address] [place], [place] [address] Performed By: #### 5 7021-8 ####[facility] LABIA [id number] [place] [address] [place] Hemoglobin (Bld) [Mass/Vol] 8.1 g/dL Low 11.5-15.5 [facility] Comment on above: Order Comment: Speci men Type: BLOOD SPECIMENOrdering Facility: [facility] Address: [address] Performed By: #### 5 7021-8 ####[facility] LABIA [id number] [place] [address] [place] Immature granulocytes (Bld) [#/Vol] 0.11 10*3/uL High <0.10 [facility] Comment on above: Order Comment: Speci men Type: BLOOD SPECIMENOrdering Facility: [facility] Address: [address] [place], [place] [address] Performed By: #### 5 7021-8 ####[facility] LABCLIA [id number] [place] [address] [place] Immature granulocytes/100 WBC (Bld) 1.0 % Normal [facility] Comment on above: Order Comment: Speci men Type: BLOOD SPECIMENOrdering Facility: [facility] Address: [address] [place], [place] [address] Performed By: #### 5 7021-8 ####[facility] LABCLIA [id number] [place] [address] [place] Lymphocytes (Bld) [#/Vol] 2.09 10*3/uL Normal 1.00-4.00 [facility] Comment on above: Order Comment: Speci men Type: BLOOD SPECIMENOrdering Facility: [facility] Address: [address] [place], [place] [address] Performed By: #### 5 7021-8 ####[facility] LABCLIA [id number] [place] [address] [place] Lymphocytes/100 WBC (Bld) 19.2 % Normal [facility] Comment on above: Order Comment: Speci men Type: BLOOD SPECIMENOrdering Facility: [facility] Address: [address] [place], [place] [address] Performed By: #### 5 7021-8 ####[facility] LABCLIA [id number] [place] [address] [place] MCH (RBC) [Entitic mass] 28.5 pg Normal 26.0-34.0 [facility] Comment on above: Order Comment: Speci men Type: BLOOD SPECIMENOrdering Facility: [facility] Address: [address] [place], [place] [address] Performed By: #### 5 7021-8 ####[facility] LABCLIA [id number] [place] [address] [place] MCHC (RBC) [Mass/Vol] 31.0 g/dL Normal 30.5-36.0 [facility] Comment on above: Order Comment: Speci men Type: BLOOD SPECIMENOrdering Facility: [facility] Address: [address] [place] [address] Performed By: #### 5 7021-8 ####[facility] LABCLIA [id number] [place] [address] [place] MCV (RBC) [Entitic vol] 91.9 fL Normal 80.0-100.0 [facility] Comment on above: Order Comment: Speci men Type: BLOOD SPECIMENOrdering Facility: [facility] Address: [address] [place] [address] Performed By: #### 5 7021-8 ####[facility] LABCLIA [id number] [place] [address] [place] Monocytes (Bld) [#/Vol] 0.82 10*3/uL Normal <0.87 [facility] Comment on above: Order Comment: Speci men Type: BLOOD SPECIMENOrdering Facility: [facility] Address: [address] [place], [place] [address] Performed By: #### 5 7021-8 ####[facility] LABIA [id number] [address] [place] Monocytes/100 WBC (Bld) 7.5 % Normal [facility] Comment on above: Order Comment: Speci men Type: BLOOD SPECIMENOrdering Facility: [facility] Address: [address] [place], [place] [address] Performed By: #### 5 7021-8 ####[facility] LABCLIA [id number] [place] [address] [place] Neutrophils (Bld) [#/Vol] 6.72 10*3/uL Normal 1.45-7.50 [facility] Comment on above: Order Comment: Speci men Type: BLOOD SPECIMENOrdering Facility: [facility] Address: [address] Performed By: #### 5 7021-8 ####[facility] LABCLIA [id number] [address] STATES [facility] Neutrophils/100 WBC (Bld) 61.6 % Normal [facility] Comment on above: Order Comment: Speci men Type: BLOOD SPECIMENOrdering Facility: [facility] Address: [address] Performed By: #### 5 7021-8 ####[facility] LABCLIA [id number] [place] [address] [place] Nucleated RBC (Bld) [#/Vol] 10*3/uL Normal <0.01 [facility] Comment on above: Order Comment: Speci men Type: BLOOD SPECIMENOrdering Facility: [facility] Address: [address] Performed By: #### 5 7021-8 ####[facility] LABCLIA [id number] [place] [address] [place] Nucleated RBC/100 WBC (Bld) [Ratio] 0.0 /100 WBC Normal [facility] Comment on above: Order Comment: Speci men Type: BLOOD SPECIMENOrdering Facility: [facility] Address: [address] Performed By: #### 5 7021-8 ####[facility] LABCLIA [id number] [place] [address] [place] Platelet mean volume (Bld) [Entitic vol] 11.0 fL Normal 9.0-12.7 [facility] Comment on above: Order Comment: Speci men Type: BLOOD SPECIMENOrdering Facility: [facility] Address: [address] [place], [place] [address] Performed By: #### 5 7021-8 ####[facility] LABCLIA [id number] [place] [address] [place] Platelets (Bld) [#/Vol] 248 10*3/uL Normal 150-400 [facility] Comment on above: Order Comment: Speci men Type: BLOOD SPECIMENOrdering Facility: [facility] Address: [address] [place] [address] Performed By: #### 5 7021-8 ####[facility] [id number] [place] [address] [place] RBC (Bld) [#/Vol] 2.84 10*6/uL Low 3.90-5.20 [facility] Comment on above: Order Comment: Speci men Type: BLOOD SPECIMENOrdering Facility: [facility] Address: [address] [place] [address] Performed By: #### 5 7021-8 ####[facility] [id number] [place] [address] [place] WBC (Bld) [#/Vol] 10.91 10*3/uL Normal 3.70-11.00 [facility] Comment on above: Order Comment: Speci men Type: BLOOD SPECIMENOrdering Facility: [facility] Address: [address] [place] [address] Performed By: #### 5 7021-8 ####[facility] [id number] [place] [address] [place] CONSULT PROGon 11-20-2022 CONSULT PROG Normal [facility] Comprehensive metabolic 2000 panelon 11-20-2022 Albumin [Mass/Vol] 3.1 g/dL Low 3.9-4.[address] [facility] Comment on above: Order Comment: Speci men Type: BLOOD SPECIMENOrdering Facility: [facility] Address: [address] [place] [address] Performed By: #### 2 4323-8, 2777-1, 71378-3 ####[facility] LABCLIA [id number] [place] [address] [place] ALP [Catalytic activity/Vol] 155 U/L High 34-123 [facility] Comment on above: Order Comment: Speci men Type: BLOOD SPECIMENOrdering Facility: [facility] Address: [address] [place] [address] Performed By: #### 2 4323-8, 27704-08, ####[facility] LABCLIA [id number] [place] [address] [place] ALT [Catalytic activity/Vol] 43 U/L High 7-38 [facility] Comment on above: Order Comment: Speci men Type: BLOOD SPECIMENOrdering Facility: [facility] Address: [address] [place] [address] Performed By: #### 2 4323-8, 27704-08, ####[facility] LABIA [id number] [place] [address] [place] Anion gap [Moles/Vol] 9 mmol/L Normal 9-18 [facility] Comment on above: Order Comment: Speci men Type: BLOOD SPECIMENOrdering Facility: [facility] Address: [address] [place] [address] Performed By: #### 2 4323-8, 27704-08, ####[facility] LABCLIA [id number] [place] [address] [place] AST [Catalytic activity/Vol] 22 U/L Normal 13-35 [facility] Comment on above: Order Comment: Speci men Type: BLOOD SPECIMENOrdering Facility: [facility] Address: [address] [place] [address] Performed By: #### 2 4323-8, 27771, ####[facility] LABCLIA [id number] [address] [address] [place] Bilirubin [Mass/Vol] 0.9 mg/dL Normal 0.2-1.3 [facility] Comment on above: Order Comment: Speci men Type: BLOOD SPECIMENOrdering Facility: [facility] Address: [address] [place] [address] Performed By: #### 2 4323-8, 2776-10, ####[facility] LABCLIA [id number] [place] [address] [place] Calcium [Mass/Vol] 9.3 mg/dL Normal 8.5-10.[address] [facility] Comment on above: Order Comment: Speci men Type: BLOOD SPECIMENOrdering Facility: [facility] Address: [address] [place] [address] Performed By: #### 2 4323-8, 2776-10, ####[facility] LABCLIA [id number] [place] [address] [place] Chloride [Moles/Vol] 103 mmol/L Normal 97-105 [facility] Comment on above: Order Comment: Speci men Type: BLOOD SPECIMENOrdering Facility: [facility] Address: [address] [place] [address] Performed By: #### 2 4323-8, 2776-10, ####[facility] LABCLIA [id number] [place] [address] [place] CO2 [Moles/Vol] 28 mmol/L Normal 22-30 [facility] Comment on above: Order Comment: Speci men Type: BLOOD SPECIMENOrdering Facility: [facility] Address: [address] [place], [place] [address] Performed By: #### 2 4323-8, 2776-10, ####[facility] LABCLIA [id number] [facility] [place] [address] [place] Creatinine [Mass/Vol] 0.68 mg/dL Normal 0.58-0.96 [facility] Comment on above: Order Comment: Matti bernal Type: BLOOD SPECIMENOrdering Facility: [facility] Address: [address] [place] [phone] Performed By: #### 2 4323-8, 2776-10, ####[facility] LABCLIA [id number] [place] [address] [place] ESTIMATED GLOMERULAR FILTRATION RATE 102 mL/min/1.73m??? Normal >=60 [facility] Comment on above: Order Comment: Matti bernal Type: BLOOD SPECIMENOrdering Facility: [facility] Address: [address] [place], [place] [phone] Result Comment: Karen mated Glomerular Filtration Rate (eGFR) is calculated using the 2020 CKD-EPI creatinine equation. This equation utilizes serum creatinine, sex, and age as parameters. The creatinine assay has traceable calibration to isotope dilution-mass spectrometry. Refer to KDIGO guidelines for clinical interpretation. In patients with unstable renal function, e.g. those with acute kidney injury, the eGFR may not accurately reflect actual GFR. Performed By: #### 2 4323-8, 2776-10, ####[facility] LABCLIA [id number] [place] [address] [place] Glucose [Mass/Vol] 155 mg/dL High 74-[address] [facility] Comment on above: Order Comment: Matti bernal Type: BLOOD SPECIMENOrdering Facility: [facility] Address: [address] [place] [phone] Result Comment: The [place] [employer] (ADA) provides guidance for cutoff values for fasting glucose and random glucose. The ADA defines fasting as no caloric intake for at least 8 hours. Fasting plasma glucose results between 100 to 125 mg/dL indicate increased risk for diabetes (prediabetes).Fasting plasma glucose results greater than or equal to 126 mg/dL meet the criteria for diagnosis of diabetes. In the absence of unequivocal hyperglycemia, results should be confirmed by repeat testing. In a patient with classic symptoms of hyperglycemia or hyperglycemic crisis, random plasma glucose results greater than or equal to 200 mg/dL meet the criteria for diagnosis of diabetes.Reference: Standards of Medical Care in Diabetes 2016, [place] [employer]. Diabetes Care. 2016.39(Suppl 1). Performed By: #### 2 4323-8, 2776-10, ####[facility] LABCLIA [id number] [address] [address] [place] Potassium [Moles/Vol] 4.2 mmol/L Normal 3.7-5.1 [facility] Comment on above: Order Comment: Speci men Type: BLOOD SPECIMENOrdering Facility: [facility] Address: [address] [place] [phone] Performed By: #### 2 4323-8, 2776-10, ####[facility] LABCLIA [id number] [address] [address] [place] Protein [Mass/Vol] 6.0 g/dL Low 6.3-8.[address] [facility] Comment on above: Order Comment: Speci men Type: BLOOD SPECIMENOrdering Facility: [facility] Address: [address] [place] [phone] Performed By: #### 2 4323-8, 2776-10, ####[facility] LABCLIA [id number] [address] [address] [place] Sodium [Moles/Vol] 140 mmol/L Normal 136-[address] [facility] Comment on above: Order Comment: Speci men Type: BLOOD SPECIMENOrdering Facility: [facility] Address: [address] [place] [address] Performed By: #### 2 4323-8, 2776-10, ####[facility] LABCLIA [id number] [address] [address] [place] Urea nitrogen [Mass/Vol] 16 mg/dL Normal 7-21 [facility] Comment on above: Order Comment: Speci men Type: BLOOD SPECIMENOrdering Facility: [facility] Address: [place] [address] Performed By: #### 2 4323-8, 2777-1, 49460-3 ####[facility] LABCLIA [id number] [place] [id number] [place] [facility] Magnesium SerPl-mCncon 11-20 Magnesium [Mass/Vol] 2.3 mg/dL Normal 1.7-2.3 [facility] Comment on above: Order Comment: Speci men Type: BLOOD SPECIMENOrdering Facility: [facility] Address: [address] [place] [phone] Performed By: #### 2 4323-8, 2777-, ####[facility] LABIA [id number] [address] OF [facility] PT panel Coag (PPP)on 2022 INR Coag (PPP) [Relative time] {INR} Low 0.9-1.3 [facility] Comment on above: Order Comment: Speci men Type: BLOOD SPECIMENOrdering Facility: [facility] Address: [address] [place] [phone] Result Comment: Sandra min K Antagonist (VKA) Therapeutic Range: INR 2 to 3 (Target INR of 2.5)Note: For patients treated with VKA drugs, such as warfarin, the [place] [employer] 2012 Guideline recommends a therapeutic INR range of 2 to 3 (target INR of 2.5). This recommendation includes high-risk patients with antiphospholipid syndrome with previous arterial or venous thromboembolism, current-generation mechanical or bioprosthetic aortic heart valve replacement.Note: Patients with mechanical aortic valve replacement and additional risk factors for thromboembolic events (atrial fibrillation, previous thromboembolism, LV dysfunction, hypercoagulable conditions) or an older generation mechanical AVR (i.e., ball in-Cage) or any mechanical MVR should have a INR therapeutic range of 2.5 to 3.5 (target INR of 3).Linda GH, et al. Chest 2012, 141:7S-47SNishimura RA, et al. [facility] 2017, 70: 252-289 Performed By: #### 3 4528-0 ####[facility] LABCLIA [id number] [place] [address] [place] PT Coag (PPP) [Time] 9.4 s Low 9.7-13.0 [facility] Comment on above: Order Comment: Speci men Type: BLOOD SPECIMENOrdering Facility: [facility] Address: [address] [place] [address] Performed By: #### 3 4528-0 ####[facility] LABIA [id number] [place] [address] [place] Phosphate SerPl-mCncon 11-20 Phosphate [Mass/Vol] 4.0 mg/dL Normal 2.7-4.8 [facility] Comment on above: Order Comment: Speci men Type: BLOOD SPECIMENOrdering Facility: [facility] Address: [address] [place] [address] Performed By: #### 2 4323-8, 2777-1, 10216-1 ####[facility] LABIA [id number] [place] [address] [place] ALLIED HEALTHon 11-19-2022 ALLIED HEALTH Normal [facility] ALLIED HEALTH Normal [facility] ALLIED HEALTH Normal [facility] CBC W Auto Differential pane l (Bld)on 11-19-2022 Basophils (Bld) [#/Vol] 0.05 10*3/uL Normal <0.11 [facility] Comment on above: Order Comment: Speci men Type: BLOOD SPECIMENOrdering Facility: [facility] Address: [address] [place] [address] Performed By: #### 5 7021-8 ####[facility] LABCLIA [id number] [place] [address] [place] Basophils/100 WBC (Bld) 0.4 % Normal [facility] Comment on above: Order Comment: Speci men Type: BLOOD SPECIMENOrdering Facility: [facility] Address: [address] Performed By: #### 5 7021-8 ####[facility] LABCLIA [id number] [place] [address] [place] Differential cell count method Nom (Bld) Auto Normal [facility] Comment on above: Order Comment: Speci men Type: BLOOD SPECIMENOrdering Facility: [facility] Address: [address] Performed By: #### 5 7021-8 ####[facility] LABCLIA [id number] [place] [address] [place] Eosinophils (Bld) [#/Vol] 0.71 10*3/uL High <0.46 [facility] Comment on above: Order Comment: Speci men Type: BLOOD SPECIMENOrdering Facility: [facility] Address: [address] [place], [place] [address] Performed By: #### 5 7021-8 ####[facility] LABCLIA [id number] [place] [address] [place] Eosinophils/100 WBC (Bld) 6.0 % Normal [facility] Comment on above: Order Comment: Speci men Type: BLOOD SPECIMENOrdering Facility: [facility] Address: [address] [place], [place] [address] Performed By: #### 5 7021-8 ####[facility] LABCLIA [id number] [place] [address] [place] Erythrocyte distribution width (RBC) [Ratio] 18.8 % High 11.5-15.0 [facility] Comment on above: Order Comment: Speci men Type: BLOOD SPECIMENOrdering Facility: [facility] Address: [address] [place], [place] [address] Performed By: #### 5 7021-8 ####[facility] LABCLIA [id number] [place] [address] [place] Hematocrit (Bld) [Volume fraction] 26.7 % Low 36.0-46.0 [facility] Comment on above: Order Comment: Speci men Type: BLOOD SPECIMENOrdering Facility: [facility] Address: [address] [place] [address] Performed By: #### 5 7021-8 ####[facility] LABIA [id number] [place] [address] [place] Hemoglobin (Bld) [Mass/Vol] 8.0 g/dL Low 11.5-15.5 [facility] Comment on above: Order Comment: Speci men Type: BLOOD SPECIMENOrdering Facility: [facility] Address: [address] [place] [address] Performed By: #### 5 7021-8 ####[facility] [id number] [place] [address] [place] Immature granulocytes (Bld) [#/Vol] 0.11 10*3/uL High <0.10 [facility] Comment on above: Order Comment: Speci men Type: BLOOD SPECIMENOrdering Facility: [facility] Address: [address] [place] [address] Performed By: #### 5 7021-8 ####[facility] [id number] [place] [address] [place] Immature granulocytes/100 WBC (Bld) 0.9 % Normal [facility] Comment on above: Order Comment: Speci men Type: BLOOD SPECIMENOrdering Facility: [facility] Address: [address] [place], [place] [address] Performed By: #### 5 7021-8 ####[facility] [id number] [place] [address] [place] Lymphocytes (Bld) [#/Vol] 1.44 10*3/uL Normal 1.00-4.00 [facility] Comment on above: Order Comment: Speci men Type: BLOOD SPECIMENOrdering Facility: [facility] Address: [address] [place], [place] [address] Performed By: #### 5 7021-8 ####[facility] [id number] [address] [place] Lymphocytes/100 WBC (Bld) 12.1 % Normal [facility] Comment on above: Order Comment: Speci men Type: BLOOD SPECIMENOrdering Facility: [facility] Address: [address] [place] [address] Performed By: #### 5 7021-8 ####[facility] [id number] [address] [place] MCH (RBC) [Entitic mass] 27.6 pg Normal 26.0-34.0 [facility] Comment on above: Order Comment: Speci men Type: BLOOD SPECIMENOrdering Facility: [facility] Address: [address] [place], [place] [address] Performed By: #### 5 7021-8 ####[facility] [id number] [address] [place] MCHC (RBC) [Mass/Vol] 30.0 g/dL Low 30.5-36.0 [facility] Comment on above: Order Comment: Speci men Type: BLOOD SPECIMENOrdering Facility: [facility] Address: [address] Performed By: #### 5 7021-8 ####[facility] [id number] [place] [address] [place] MCV (RBC) [Entitic vol] 92.1 fL Normal 80.0-100.0 [facility] Comment on above: Order Comment: Speci men Type: BLOOD SPECIMENOrdering Facility: [facility] Address: [address] [place], [place] [address] Performed By: #### 5 7021-8 ####[facility] [id number] [place] [address] [place] Monocytes (Bld) [#/Vol] 0.72 10*3/uL Normal <0.87 [facility] Comment on above: Order Comment: Speci men Type: BLOOD SPECIMENOrdering Facility: [facility] Address: [address] Performed By: #### 5 7021-8 ####[facility] [id number] [place] [address] [place] Monocytes/100 WBC (Bld) 6.1 % Normal [facility] Comment on above: Order Comment: Speci men Type: BLOOD SPECIMENOrdering Facility: [facility] Address: [address] [place], [place] [address] Performed By: #### 5 7021-8 ####[facility] [id number] [place] [address] [place] Neutrophils (Bld) [#/Vol] 8.84 10*3/uL High 1.45-7.50 [facility] Comment on above: Order Comment: Speci men Type: BLOOD SPECIMENOrdering Facility: [facility] Address: [address] [place], [place] [address] Performed By: #### 5 7021-8 ####[facility] [id number] [place] [address] [place] Neutrophils/100 WBC (Bld) 74.5 % Normal [facility] Comment on above: Order Comment: Speci men Type: BLOOD SPECIMENOrdering Facility: [facility] Address: [address] [place], [place] [address] Performed By: #### 5 7021-8 ####[facility] [id number] [place] [address] [place] Nucleated RBC (Bld) [#/Vol] 0.02 10*3/uL High <0.01 [facility] Comment on above: Order Comment: Speci men Type: BLOOD SPECIMENOrdering Facility: [facility] Address: [address] [place] [address] Performed By: #### 5 7021-8 ####[facility] [id number] [place] [address] [place] Nucleated RBC/100 WBC (Bld) [Ratio] 0.2 /100 WBC Normal [facility] Comment on above: Order Comment: Speci men Type: BLOOD SPECIMENOrdering Facility: [facility] Address: [address] [place] [address] Performed By: #### 5 7021-8 ####[facility] [id number] [place] [address] [place] Platelet mean volume (Bld) [Entitic vol] 11.5 fL Normal 9.0-12.7 [facility] Comment on above: Order Comment: Speci men Type: BLOOD SPECIMENOrdering Facility: [facility] Address: [address] [place], [place] [address] Performed By: #### 5 7021-8 ####[facility] [id number] [place] [address] [place] Platelets (Bld) [#/Vol] 193 10*3/uL Normal 150-400 [facility] Comment on above: Order Comment: Speci men Type: BLOOD SPECIMENOrdering Facility: [facility] Address: [address] [place], [place] [address] Performed By: #### 5 7021-8 ####[facility] [id number] [place] [address] [place] RBC (Bld) [#/Vol] 2.90 10*6/uL Low 3.90-5.20 [facility] Comment on above: Order Comment: Speci men Type: BLOOD SPECIMENOrdering Facility: [facility] Address: [address] [place], [place] [address] Performed By: #### 5 7021-8 ####[facility] [id number] [place] [address] [place] WBC (Bld) [#/Vol] 11.87 10*3/uL High 3.70-11.00 [facility] Comment on above: Order Comment: Speci men Type: BLOOD SPECIMENOrdering Facility: [facility] Address: [address] [place], [place] [address] Performed By: #### 5 7021-8 ####[facility] [id number] [place] [address] [place] CONSULT PROGon 11-19-2022 CONSULT PROG Normal [facility] Comprehensive metabolic 2000 panelon 11-19-2022 Albumin [Mass/Vol] 2.8 g/dL Low 3.9-4.[address] [facility] Comment on above: Order Comment: Speci men Type: BLOOD SPECIMENOrdering Facility: [facility] Address: [address] [place], [place] [address] Performed By: #### 2 4323-8, , 2776- ####[facility] [id number] [place] [address] [place] ALP [Catalytic activity/Vol] 158 U/L High 34-123 [facility] Comment on above: Order Comment: Speci men Type: BLOOD SPECIMENOrdering Facility: [facility] Address: [address] Performed By: #### 2 4323-8, , 2777-1 ####[facility] [id number] [place] [address] [place] ALT [Catalytic activity/Vol] 55 U/L High 7-38 [facility] Comment on above: Order Comment: Speci men Type: BLOOD SPECIMENOrdering Facility: [facility] Address: [address] [place] [address] Performed By: #### 2 4323-8, , 2776-10 ####[facility] [id number] [place] [address] [place] Anion gap [Moles/Vol] 7 mmol/L Low 9-18 [facility] Comment on above: Order Comment: Speci men Type: BLOOD SPECIMENOrdering Facility: [facility] Address: [address] [place] [address] Performed By: #### 2 4323-8, , 2776-10 ####[facility] [id number] [place] [address] [place] AST [Catalytic activity/Vol] 28 U/L Normal 13-35 [facility] Comment on above: Order Comment: Speci men Type: BLOOD SPECIMENOrdering Facility: [facility] Address: [address] [place] [address] Performed By: #### 2 4323-8, , 2776-10 ####[facility] [id number] [place] [address] [place] Bilirubin [Mass/Vol] 1.1 mg/dL Normal 0.2-1.3 [facility] Comment on above: Order Comment: Speci men Type: BLOOD SPECIMENOrdering Facility: [facility] Address: [address] [place] [address] Performed By: #### 2 4323-8, , 2776-10 ####[facility] [id number] [place] [address] [place] Calcium [Mass/Vol] 8.9 mg/dL Normal 8.5-10.[address] [facility] Comment on above: Order Comment: Speci men Type: BLOOD SPECIMENOrdering Facility: [facility] Address: [address] Performed By: #### 2 4323-8, 72631-1, 2776-10 ####[facility] [id number] [place] [address] [place] Chloride [Moles/Vol] 99 mmol/L Normal 97-105 [facility] Comment on above: Order Comment: Speci men Type: BLOOD SPECIMENOrdering Facility: [facility] Address: [address] [address] Performed By: #### 2 4323-8, 72235-6, 2776-10 ####[facility] [id number] [place] [address] [place] CO2 [Moles/Vol] 35 mmol/L High 22-30 [facility] Comment on above: Order Comment: Speci men Type: BLOOD SPECIMENOrdering Facility: [facility] Address: [address] [place] [address] Performed By: #### 2 4323-8, , 2776-10 ####[facility] [id number] [place] [address] [place] Creatinine [Mass/Vol] 0.73 mg/dL Normal 0.58-0.96 [facility] Comment on above: Order Comment: Speci men Type: BLOOD SPECIMENOrdering Facility: [facility] Address: [address] [place], [place] [address] Performed By: #### 2 4323-8, 45979-4, 2776-10 ####[facility] [id number] [place] [address] [place] ESTIMATED GLOMERULAR FILTRATION RATE 97 mL/min/1.73m??? Normal >=60 [facility] Comment on above: Order Comment: Speci men Type: BLOOD SPECIMENOrdering Facility: [facility] Address: [address] [place], [place] [address] Result Comment: Karen mated Glomerular Filtration Rate (eGFR) is calculated using the 2020 CKD-EPI creatinine equation. This equation utilizes serum creatinine, sex, and age as parameters. The creatinine assay has traceable calibration to isotope dilution-mass spectrometry. Refer to KDIGO guidelines for clinical interpretation. In patients with unstable renal function, e.g. those with acute kidney injury, the eGFR may not accurately reflect actual GFR. Performed By: #### 2 4323-8, , 2776-10 ####[facility] [id number] [address] [address] [place] Glucose [Mass/Vol] 148 mg/dL High 74-[address] [facility] Comment on above: Order Comment: Matti bernal Type: BLOOD SPECIMENOrdering Facility: [facility] Address: [address] [phone] Result Comment: The [place] [employer] (ADA) provides guidance for cutoff values for fasting glucose and random glucose. The ADA defines fasting as no caloric intake for at least 8 hours. Fasting plasma glucose results between 100 to 125 mg/dL indicate increased risk for diabetes (prediabetes).Fasting plasma glucose results greater than or equal to 126 mg/dL meet the criteria for diagnosis of diabetes. In the absence of unequivocal hyperglycemia, results should be confirmed by repeat testing. In a patient with classic symptoms of hyperglycemia or hyperglycemic crisis, random plasma glucose results greater than or equal to 200 mg/dL meet the criteria for diagnosis of diabetes.Reference: Standards of Medical Care in Diabetes 2016, [place] [employer]. Diabetes Care. 2016.39(Suppl 1). Performed By: #### 2 4323-8, , 2776-10 ####[facility] [id number] [address] [address] [place] Potassium [Moles/Vol] 3.2 mmol/L Low 3.7-5.1 [facility] Comment on above: Order Comment: Matti bernal Type: BLOOD SPECIMENOrdering Facility: [facility] Address: [address] [place] [address] Performed By: #### 2 4323-8, , 2776-10 ####[facility] [id number] [place] [address] [place] Protein [Mass/Vol] 5.7 g/dL Low 6.3-8.[address] [facility] Comment on above: Order Comment: Speci men Type: BLOOD SPECIMENOrdering Facility: [facility] Address: [address] [address] Performed By: #### 2 4323-8, , 2776-10 ####[facility] [id number] [place] [address] [place] Sodium [Moles/Vol] 141 mmol/L Normal 136-[address] [facility] Comment on above: Order Comment: Speci men Type: BLOOD SPECIMENOrdering Facility: [facility] Address: [address] [place] [address] Performed By: #### 2 8, , 2776-10 ####[facility] [id number] [place] [address] [place] Urea nitrogen [Mass/Vol] 13 mg/dL Normal 7-21 [facility] Comment on above: Order Comment: Speci men Type: BLOOD SPECIMENOrdering Facility: [facility] Address: [address] [place], [place] [address] Performed By: #### 2 432-8, , 2776-10 ####[facility] [id number] [place] [id number] [place] IR CENTRAL CATH PLACEMENTon 11-19-2022 IR CENTRAL CATH PLACEMENT Normal [facility] Magnesium SerPl-mCncon 11-19 Magnesium [Mass/Vol] 2.2 mg/dL Normal 1.7-2.3 [facility] Comment on above: Order Comment: Speci men Type: BLOOD SPECIMENOrdering Facility: [facility] Address: [address] Performed By: #### 2 4323-8, 61674-4, 2777-1 ####[facility] [id number] [place] [address] [place] PT EDon 11-19-2022 PT ED Normal [facility] PT ED Normal [facility] PT panel Coag (PPP)on 2022 INR Coag (PPP) [Relative time] {INR} Low 0.9-1.3 [facility] Comment on above: Order Comment: Speci men Type: BLOOD SPECIMENOrdering Facility: [facility] Address: [address] [address] Result Comment: Sandra min K Antagonist (VKA) Therapeutic Range: INR 2 to 3 (Target INR of 2.5)Note: For patients treated with VKA drugs, such as warfarin, the [place] [employer] 2012 Guideline recommends a therapeutic INR range of 2 to 3 (target INR of 2.5). This recommendation includes high-risk patients with antiphospholipid syndrome with previous arterial or venous thromboembolism, current-generation mechanical or bioprosthetic aortic heart valve replacement.Note: Patients with mechanical aortic valve replacement and additional risk factors for thromboembolic events (atrial fibrillation, previous thromboembolism, LV dysfunction, hypercoagulable conditions) or an older generation mechanical AVR (i.e., ball in-Cage) or any mechanical MVR should have a INR therapeutic range of 2.5 to 3.5 (target INR of 3).Linda GH, et al. Chest 2012, 141:7S-47SNishimura RA, et al. [facility] 2017, 70: 252-289Result rechecked.Sample checked for clot. Performed By: #### 3 4528-0 ####[facility] [id number] [place] [address] [place] PT Coag (PPP) [Time] 9.6 s Low 9.7-13.0 [facility] Comment on above: Order Comment: Speci men Type: BLOOD SPECIMENOrdering Facility: [facility] Address: [address] [phone] Performed By: #### 3 4528-0 ####[facility] [id number] [place] [address] [place] Phosphate SerPl-mCncon 11-19 Phosphate [Mass/Vol] 3.8 mg/dL Normal 2.7-4.8 [facility] Comment on above: Order Comment: Speci men Type: BLOOD SPECIMENOrdering Facility: [facility] Address: [address] [place], [place] [address] Performed By: #### 2 4323-8, 77660-9, 2777-1 ####[facility] [id number] [place] [address] [place] ALLIED HEALTHon 11-18-2022 ALLIED HEALTH Normal [facility] CASE MANAGEMon 11-18-2022 CASE MANAGEM Normal [facility] CBC W Auto Differential pane l (Bld)on 11-18-2022 Basophils (Bld) [#/Vol] 0.03 10*3/uL Normal <0.11 [facility] Comment on above: Order Comment: Speci men Type: BLOOD SPECIMENOrdering Facility: [facility] Address: [address] [place], [place] [address] Performed By: #### 5 7021-8 ####[facility] [id number] [place] [address] [place] Basophils/100 WBC (Bld) 0.3 % Normal [facility] Comment on above: Order Comment: Speci men Type: BLOOD SPECIMENOrdering Facility: [facility] Address: [address] Performed By: #### 5 7021-8 ####[facility] [id number] [place] [address] [place] Differential cell count method Nom (Bld) Auto Normal [facility] Comment on above: Order Comment: Speci men Type: BLOOD SPECIMENOrdering Facility: [facility] Address: [address] Performed By: #### 5 7021-8 ####[facility] [id number] [place] [address] [place] [facility] [place] Eosinophils (Bld) [#/Vol] 0.09 10*3/uL Normal <0.46 [facility] Comment on above: Order Comment: Speci men Type: BLOOD SPECIMENOrdering Facility: [facility] Address: [address] [address] Performed By: #### 5 7021-8 ####[facility] [id number] [place] [address] [place] Eosinophils/100 WBC (Bld) 0.8 % Normal [facility] Comment on above: Order Comment: Speci men Type: BLOOD SPECIMENOrdering Facility: [facility] Address: [address] [place], [place] [address] Performed By: #### 5 7021-8 ####[facility] [id number] [place] [address] [place] Erythrocyte distribution width (RBC) [Ratio] 18.9 % High 11.5-15.0 [facility] Comment on above: Order Comment: Speci men Type: BLOOD SPECIMENOrdering Facility: [facility] Address: [address] [place], [place] [address] Performed By: #### 5 7021-8 ####[facility] [id number] [place] [address] [place] Hematocrit (Bld) [Volume fraction] 28.4 % Low 36.0-46.0 [facility] Comment on above: Order Comment: Speci men Type: BLOOD SPECIMENOrdering Facility: [facility] Address: [address] Performed By: #### 5 7021-8 ####[facility] [id number] [place] [address] [place] Hemoglobin (Bld) [Mass/Vol] 8.5 g/dL Low 11.5-15.5 [facility] Comment on above: Order Comment: Speci men Type: BLOOD SPECIMENOrdering Facility: [facility] Address: [address] [place] [address] Performed By: #### 5 7021-8 ####[facility] [id number] [place] [address] [place] Immature granulocytes (Bld) [#/Vol] 0.06 10*3/uL Normal <0.10 [facility] Comment on above: Order Comment: Speci men Type: BLOOD SPECIMENOrdering Facility: [facility] Address: [address] [place] [address] Performed By: #### 5 7021-8 ####[facility] [id number] [place] [address] [place] Immature granulocytes/100 WBC (Bld) 0.5 % Normal [facility] Comment on above: Order Comment: Speci men Type: BLOOD SPECIMENOrdering Facility: [facility] Address: [address] [place] [address] Performed By: #### 5 7021-8 ####[facility] [id number] [place] [address] [place] Lymphocytes (Bld) [#/Vol] 1.41 10*3/uL Normal 1.00-4.00 [facility] Comment on above: Order Comment: Speci men Type: BLOOD SPECIMENOrdering Facility: [facility] Address: [address] [place] [address] Performed By: #### 5 7021-8 ####[facility] [id number] [place] [address] [place] Lymphocytes/100 WBC (Bld) 12.3 % Normal [facility] Comment on above: Order Comment: Speci men Type: BLOOD SPECIMENOrdering Facility: [facility] Address: [address] [address] Performed By: #### 5 7021-8 ####[facility] [id number] [place] [address] [place] MCH (RBC) [Entitic mass] 27.7 pg Normal 26.0-34.0 [facility] Comment on above: Order Comment: Speci men Type: BLOOD SPECIMENOrdering Facility: [facility] Address: [address] [address] Performed By: #### 5 7021-8 ####[facility] [id number] [place] [address] [place] MCHC (RBC) [Mass/Vol] 29.9 g/dL Low 30.5-36.0 [facility] Comment on above: Order Comment: Speci men Type: BLOOD SPECIMENOrdering Facility: [facility] Address: [address] [place], [place] [address] Performed By: #### 5 7021-8 ####[facility] [id number] [place] [address] [place] MCV (RBC) [Entitic vol] 92.5 fL Normal 80.0-100.0 [facility] Comment on above: Order Comment: Speci men Type: BLOOD SPECIMENOrdering Facility: [facility] Address: [address] [place], [place] [address] Performed By: #### 5 7021-8 ####[facility] [id number] [place] [address] [place] Monocytes (Bld) [#/Vol] 1.16 10*3/uL High <0.87 [facility] Comment on above: Order Comment: Speci men Type: BLOOD SPECIMENOrdering Facility: [facility] Address: [address] [place], [place] [address] Performed By: #### 5 7021-8 ####[facility] [id number] [place] [address] [place] Monocytes/100 WBC (Bld) 10.1 % Normal [facility] Comment on above: Order Comment: Speci men Type: BLOOD SPECIMENOrdering Facility: [facility] Address: [address] Performed By: #### 5 7021-8 ####[facility] [id number] [place] [address] [place] Neutrophils (Bld) [#/Vol] 8.75 10*3/uL High 1.45-7.50 [facility] Comment on above: Order Comment: Speci men Type: BLOOD SPECIMENOrdering Facility: [facility] Address: [address] [place], [place] [address] Performed By: #### 5 7021-8 ####[facility] [id number] [place] [address] [place] Neutrophils/100 WBC (Bld) 76.0 % Normal [facility] Comment on above: Order Comment: Speci men Type: BLOOD SPECIMENOrdering Facility: [facility] Address: [address] [place], [place] [address] Performed By: #### 5 7021-8 ####[facility] [id number] [place] [address] [place] Nucleated RBC (Bld) [#/Vol] 10*3/uL Normal <0.01 [facility] Comment on above: Order Comment: Speci men Type: BLOOD SPECIMENOrdering Facility: [facility] Address: [address] [place] [address] Performed By: #### 5 7021-8 ####[facility] [id number] [place] [address] [place] Nucleated RBC/100 WBC (Bld) [Ratio] 0.0 /100 WBC Normal [facility] Comment on above: Order Comment: Speci men Type: BLOOD SPECIMENOrdering Facility: [facility] Address: [address] [place], [place] [address] Performed By: #### 5 7021-8 ####[facility] LABCLIA [id number] [place] [address] [place] Platelet mean volume (Bld) [Entitic vol] 11.2 fL Normal 9.0-12.7 [facility] Comment on above: Order Comment: Speci men Type: BLOOD SPECIMENOrdering Facility: [facility] Address: [address] [place], [place] [address] Performed By: #### 5 7021-8 ####[facility] LABCLIA [id number] [place] [address] [place] Platelets (Bld) [#/Vol] 161 10*3/uL Normal 150-400 [facility] Comment on above: Order Comment: Speci men Type: BLOOD SPECIMENOrdering Facility: [facility] Address: [address] [place], [place] [address] Performed By: #### 5 7021-8 ####[facility] LABIA [id number] [place] [address] [place] RBC (Bld) [#/Vol] 3.07 10*6/uL Low 3.90-5.20 [facility] Comment on above: Order Comment: Speci men Type: BLOOD SPECIMENOrdering Facility: [facility] Address: [address] [place], [place] [address] Performed By: #### 5 7021-8 ####[facility] LABCLIA [id number] [place] [address] [place] WBC (Bld) [#/Vol] 11.50 10*3/uL High 3.70-11.00 [facility] Comment on above: Order Comment: Speci men Type: BLOOD SPECIMENOrdering Facility: [facility] Address: [address] Performed By: #### 5 7021-8 ####[facility] LABCLIA [id number] [place] [address] [place] CONSULT PROGon 11-18-2022 CONSULT PROG Normal [facility] Comprehensive metabolic 2000 panelon 11-18-2022 Albumin [Mass/Vol] 3.2 g/dL Low 3.9-4.[address] [facility] Comment on above: Order Comment: Speci men Type: BLOOD SPECIMENOrdering Facility: [facility] Address: [address] [place], [place] [address] Performed By: #### 1 9123-9, 2777-, 93276-9 ####[facility] LABCLIA [id number] [place] [address] [place] ALP [Catalytic activity/Vol] 201 U/L High 34-123 [facility] Comment on above: Order Comment: Speci men Type: BLOOD SPECIMENOrdering Facility: [facility] Address: [address] [place], [place] [address] Performed By: #### 1 9123-9, 2777-, 95411-2 ####[facility] LABCLIA [id number] [place] [address] [place] ALT [Catalytic activity/Vol] 80 U/L High 7-38 [facility] Comment on above: Order Comment: Speci men Type: BLOOD SPECIMENOrdering Facility: [facility] Address: [address] [place], [place] [address] Performed By: #### 1 9123-9, 27704-08, 31103-8 ####[facility] LABCLIA [id number] [place] [address] [place] Anion gap [Moles/Vol] 6 mmol/L Low 9-18 [facility] Comment on above: Order Comment: Speci men Type: BLOOD SPECIMENOrdering Facility: [facility] Address: [address] [place] [phone] Performed By: #### 1 9123-9, 2776-10, ####[facility] LABCLIA [id number] [place] [address] [place] AST [Catalytic activity/Vol] 45 U/L High 13-35 [facility] Comment on above: Order Comment: Speci men Type: BLOOD SPECIMENOrdering Facility: [facility] Address: [address] [place] [address] Performed By: #### 1 9123-9, 27704-08, 14639-4 ####[facility] LABCLIA [id number] [place] [address] [place] Bilirubin [Mass/Vol] 3.3 mg/dL High 0.2-1.3 [facility] Comment on above: Order Comment: Speci men Type: BLOOD SPECIMENOrdering Facility: [facility] Address: [address] [place] [address] Performed By: #### 1 9123-9, 2776-10, ####[facility] LABCLIA [id number] [place] [address] [place] Calcium [Mass/Vol] 8.9 mg/dL Normal 8.5-10.[address] [facility] Comment on above: Order Comment: Speci men Type: BLOOD SPECIMENOrdering Facility: [facility] Address: [address] [place] [address] Performed By: #### 1 9123-9, 27704-08, 76562-2 ####[facility] LABCLIA [id number] [place] [address] [place] Chloride [Moles/Vol] 97 mmol/L Normal 97-105 [facility] Comment on above: Order Comment: Speci men Type: BLOOD SPECIMENOrdering Facility: [facility] Address: [address] [place] [address] Performed By: #### 1 9123-9, 2777, 45807-1 ####[facility] LABCLIA [id number] [place] [address] [place] CO2 [Moles/Vol] 37 mmol/L High 22-30 [facility] Comment on above: Order Comment: Speci men Type: BLOOD SPECIMENOrdering Facility: [facility] Address: [address] [place] [address] Performed By: #### 1 9123-9, 27704-08, ####[facility] LABCLIA [id number] [place] [address] [place] Creatinine [Mass/Vol] 0.83 mg/dL Normal 0.58-0.96 [facility] Comment on above: Order Comment: Speci men Type: BLOOD SPECIMENOrdering Facility: [facility] Address: [address] [place] [address] Performed By: #### 1 9123-9, 27704-08, ####[facility] LABCLIA [id number] [place] ESTIMATED GLOMERULAR FILTRATION RATE 83 mL/min/1.73m??? Normal >=60 [facility] Comment on above: Order Comment: Speci men Type: BLOOD SPECIMENOrdering Facility: [facility] Address: [address] [place] [address] Result Comment: Karen mated Glomerular Filtration Rate (eGFR) is calculated using the 2020 CKD-EPI creatinine equation. This equation utilizes serum creatinine, sex, and age as parameters. The creatinine assay has traceable calibration to isotope dilution-mass spectrometry. Refer to KDIGO guidelines for clinical interpretation. In patients with unstable renal function, e.g. those with acute kidney injury, the eGFR may not accurately reflect actual GFR. Performed By: #### 1 9123-9, 2777-, 64763-6 ####[facility] LABCLIA [id number] [place] [address] [place] Glucose [Mass/Vol] 136 mg/dL High 74-[address] [facility] Comment on above: Order Comment: Speci men Type: BLOOD SPECIMENOrdering Facility: [facility] Address: [address] [place] [address] Result Comment: The [place] Diabetes [employer] (ADA) provides guidance for cutoff values for fasting glucose and random glucose. The ADA defines fasting as no caloric intake for at least 8 hours. Fasting plasma glucose results between 100 to 125 mg/dL indicate increased risk for diabetes (prediabetes).Fasting plasma glucose results greater than or equal to 126 mg/dL meet the criteria for diagnosis of diabetes. In the absence of unequivocal hyperglycemia, results should be confirmed by repeat testing. In a patient with classic symptoms of hyperglycemia or hyperglycemic crisis, random plasma glucose results greater than or equal to 200 mg/dL meet the criteria for diagnosis of diabetes.Reference: Standards of Medical Care in Diabetes 2016, [place] [employer]. Diabetes Care. 2016.39(Suppl 1). Performed By: #### 1 9123-9, 2777-, 15517-6 ####[facility] LABIA [id number] [place] [address] [place] Potassium [Moles/Vol] 3.5 mmol/L Low 3.7-5.1 [facility] Comment on above: Order Comment: Speci men Type: BLOOD SPECIMENOrdering Facility: [facility] Address: [address] [place] [address] Performed By: #### 1 9123-9, 2777-, 30028-8 ####[facility] LABIA [id number] [place] [address] [place] Protein [Mass/Vol] 5.5 g/dL Low 6.3-8.[address] [facility] Comment on above: Order Comment: Speci men Type: BLOOD SPECIMENOrdering Facility: [facility] Address: [address] [place] [address] Performed By: #### 1 9123-9, 27704-08, 30211-1 ####[facility] LABIA [id number] [place] [id number] [place] Sodium [Moles/Vol] 140 mmol/L Normal 136-[address] [facility] Comment on above: Order Comment: Speci men Type: BLOOD SPECIMENOrdering Facility: [facility] Address: [address] [place] [address] Performed By: #### 1 9123-9, 27704-08, ####[facility] LABIA [id number] [place] [address] [place] Urea nitrogen [Mass/Vol] 9 mg/dL Normal 7-21 [facility] Comment on above: Order Comment: Speci men Type: BLOOD SPECIMENOrdering Facility: [facility] Address: [address] [place] [address] Performed By: #### 1 9123-9, 27704-08, ####[facility] [id number] [place] [id number] [place] Magnesium SerPl-mCncon 11-18 Magnesium [Mass/Vol] 2.0 mg/dL Normal 1.7-2.3 [facility] Comment on above: Order Comment: Speci men Type: BLOOD SPECIMENOrdering Facility: [facility] Address: [address] [place], [place] [address] Performed By: #### 1 9123-9, 27704-08, ####[facility] [id number] [place] [address] [place] PT panel Coag (PPP)on 2022 INR Coag (PPP) [Relative time] 1.0 {INR} Normal 0.9-1.3 [facility] Comment on above: Order Comment: Speci men Type: BLOOD SPECIMENOrdering Facility: [facility] Address: [address] [place], [place] [address] Result Comment: Sandra min K Antagonist (VKA) Therapeutic Range: INR 2 to 3 (Target INR of 2.5)Note: For patients treated with VKA drugs, such as warfarin, the [place] [employer] 2012 Guideline recommends a therapeutic INR range of 2 to 3 (target INR of 2.5). This recommendation includes high-risk patients with antiphospholipid syndrome with previous arterial or venous thromboembolism, current-generation mechanical or bioprosthetic aortic heart valve replacement.Note: Patients with mechanical aortic valve replacement and additional risk factors for thromboembolic events (atrial fibrillation, previous thromboembolism, LV dysfunction, hypercoagulable conditions) or an older generation mechanical AVR (i.e., ball in-Cage) or any mechanical MVR should have a INR therapeutic range of 2.5 to 3.5 (target INR of 3).Linda GH, et al. Chest 2012, 141:7S-47SNishcandice RA, et al. [facility] 2017, 70: 252-289 Performed By: #### 3 4528-0 ####[facility] LABIA [id number] [place] [address] [place] PT Coag (PPP) [Time] 10.6 s Normal 9.7-13.0 [facility] Comment on above: Order Comment: Speci men Type: BLOOD SPECIMENOrdering Facility: [facility] Address: [address] [place] [address] Performed By: #### 3 4528-0 ####[facility] LABIA [id number] [place] [address] [place] Phosphate SerPl-mCncon 11-18 Phosphate [Mass/Vol] 2.5 mg/dL Low 2.7-4.8 [facility] Comment on above: Order Comment: Speci men Type: BLOOD SPECIMENOrdering Facility: [facility] Address: [address] [place] [address] Performed By: #### 1 9123-9, 2777-1, 07986-6 ####[facility] LABIA [id number] [place] [id number] [place] ALLIED HEALTHon 11-17-2022 ALLIED HEALTH Normal [facility] ANES POSTPROC EVALon 023 ANES POSTPROC EVAL Normal [facility] Basic metabolic 2000 panelon 11-17-2022 Anion gap [Moles/Vol] 9 mmol/L Normal 9-18 [facility] Comment on above: Order Comment: Speci men Type: BLOOD SPECIMENOrdering Facility: [facility] Address: [address] [place] [address] Performed By: #### 2 4320-11, 1988-02, ####[facility] LABCLIA [id number] [place] [address] [place] Calcium [Mass/Vol] 8.8 mg/dL Normal 8.5-10.[address] [facility] Comment on above: Order Comment: Speci men Type: BLOOD SPECIMENOrdering Facility: [facility] Address: [address] [place] [address] Performed By: #### 2 4320-11, 1988-02, ####[facility] LABCLIA [id number] [place] [address] [place] Chloride [Moles/Vol] 106 mmol/L High 97-105 [facility] Comment on above: Order Comment: Speci men Type: BLOOD SPECIMENOrdering Facility: [facility] Address: [address] [place], [place] Performed By: #### 2 4320-11, 1988-02, ####[facility] LABCLIA [id number] [place] [id number] [place] CO2 [Moles/Vol] 27 mmol/L Normal 22-30 [facility] Comment on above: Order Comment: Speci men Type: BLOOD SPECIMENOrdering Facility: [facility] Address: [address] [place], [place] Performed By: #### 2 4320-11, 1988-02, ####[facility] LABIA [id number] [place] [address] [place] Creatinine [Mass/Vol] 0.81 mg/dL Normal 0.58-0.96 [facility] Comment on above: Order Comment: Speci men Type: BLOOD SPECIMENOrdering Facility: [facility] Address: [address] [place] [address] Performed By: #### 2 4320-11, 1988-02, ####[facility] LABIA [id number] [place] [address] [place] ESTIMATED GLOMERULAR FILTRATION RATE 85 mL/min/1.73m??? Normal >=60 [facility] Comment on above: Order Comment: Speci men Type: BLOOD SPECIMENOrdering Facility: [facility] Address: [address] [place] [address] Result Comment: Karen mated Glomerular Filtration Rate (eGFR) is calculated using the 2020 CKD-EPI creatinine equation. This equation utilizes serum creatinine, sex, and age as parameters. The creatinine assay has traceable calibration to isotope dilution-mass spectrometry. Refer to KDIGO guidelines for clinical interpretation. In patients with unstable renal function, e.g. those with acute kidney injury, the eGFR may not accurately reflect actual GFR. Performed By: #### 2 4320-11, 1988-02, ####[facility] LABIA [id number] [place] [address] [place] Glucose [Mass/Vol] 128 mg/dL High 74-[address] [facility] Comment on above: Order Comment: Speci men Type: BLOOD SPECIMENOrdering Facility: [facility] Address: [address] [place] [address] Result Comment: The [place] Diabetes [employer] (ADA) provides guidance for cutoff values for fasting glucose and random glucose. The ADA defines fasting as no caloric intake for at least 8 hours. Fasting plasma glucose results between 100 to 125 mg/dL indicate increased risk for diabetes (prediabetes).Fasting plasma glucose results greater than or equal to 126 mg/dL meet the criteria for diagnosis of diabetes. In the absence of unequivocal hyperglycemia, results should be confirmed by repeat testing. In a patient with classic symptoms of hyperglycemia or hyperglycemic crisis, random plasma glucose results greater than or equal to 200 mg/dL meet the criteria for diagnosis of diabetes.Reference: Standards of Medical Care in Diabetes 2016, [place] [employer]. Diabetes Care. 2016.39(Suppl 1). Performed By: #### 2 4320-11, 1988-02, ####[facility] LABCLIA [id number] [place] [address] [place] Potassium [Moles/Vol] 4.7 mmol/L Normal 3.7-5.1 [facility] Comment on above: Order Comment: Sathishi dolores Type: BLOOD SPECIMENOrdering Facility: [facility] Address: [address] [place], [place] [address] Performed By: #### 2 4320-11, 1988-02, ####[facility] LABCLIA [id number] [place] [address] [place] Sodium [Moles/Vol] 142 mmol/L Normal 136-[address] [facility] Comment on above: Order Comment: Matti bernal Type: BLOOD SPECIMENOrdering Facility: [facility] Address: [address] [place], [place] [address] Performed By: #### 2 4320-11, 1988-02, ####[facility] LABCLIA [id number] [place] [address] [place] Urea nitrogen [Mass/Vol] 8 mg/dL Normal 7-21 [facility] Comment on above: Order Comment: Sathishi men Type: BLOOD SPECIMENOrdering Facility: [facility] Address: [address] [place] [address] Performed By: #### 2 4320-11, 1988-02, ####[facility] LABCLIA [id number] [place] [id number] CBC panel Auto (Bld)on 11-17 Erythrocyte distribution width (RBC) [Ratio] 18.9 % High 11.5-15.0 [facility] Comment on above: Order Comment: Speci men Type: BLOOD SPECIMENOrdering Facility: [facility] Address: [address] [place] [address] Performed By: #### 5 8410-2 ####[facility] LABIA [id number] [address] Hematocrit (Bld) [Volume fraction] 29.8 % Low 36.0-46.0 [facility] Comment on above: Order Comment: Speci men Type: BLOOD SPECIMENOrdering Facility: [facility] Address: [address] [place] [address] Performed By: #### 5 8410-2 ####[facility] LABIA [id number] [address] [facility] Hemoglobin (Bld) [Mass/Vol] 9.3 g/dL Low 11.5-15.5 [facility] Comment on above: Order Comment: Speci men Type: BLOOD SPECIMENOrdering Facility: [facility] Address: [address] [place] [address] Performed By: #### 5 8410-2 ####[facility] LABIA [id number] [place] [address] [place] MCH (RBC) [Entitic mass] 28.7 pg Normal 26.0-34.0 [facility] Comment on above: Order Comment: Speci men Type: BLOOD SPECIMENOrdering Facility: [facility] Address: [address] [place], [place] [address] Performed By: #### 5 8410-2 ####[facility] LABCLIA [id number] [place] MCHC (RBC) [Mass/Vol] 31.2 g/dL Normal 30.5-36.0 [facility] Comment on above: Order Comment: Speci men Type: BLOOD SPECIMENOrdering Facility: [facility] Address: [address] Performed By: #### 5 8410-2 ####[facility] [id number] [place] [address] [place] MCV (RBC) [Entitic vol] 92.0 fL Normal 80.0-100.0 [facility] Comment on above: Order Comment: Speci men Type: BLOOD SPECIMENOrdering Facility: [facility] Address: [address] Performed By: #### 5 8410-2 ####[facility] [id number] [place] [address] [place] Nucleated RBC (Bld) [#/Vol] 0.02 10*3/uL High <0.01 [facility] Comment on above: Order Comment: Speci men Type: BLOOD SPECIMENOrdering Facility: [facility] Address: [address] [place], [place] [address] Performed By: #### 5 8410-2 ####[facility] [id number] [place] [address] [place] Platelet mean volume (Bld) [Entitic vol] 10.8 fL Normal 9.0-12.7 [facility] Comment on above: Order Comment: Speci men Type: BLOOD SPECIMENOrdering Facility: [facility] Address: [address] Performed By: #### 5 8410-2 ####[facility] LABIA [id number] [place] [address] [place] Platelets (Bld) [#/Vol] 202 10*3/uL Normal 150-400 [facility] Comment on above: Order Comment: Speci men Type: BLOOD SPECIMENOrdering Facility: [facility] Address: [address] [place] [address] Performed By: #### 5 8410-2 ####[facility] LABCLIA [id number] [place] [address] [place] RBC (Bld) [#/Vol] 3.24 10*6/uL Low 3.90-5.20 [facility] Comment on above: Order Comment: Speci men Type: BLOOD SPECIMENOrdering Facility: [facility] Address: [address] Performed By: #### 5 8410-2 ####[facility] LABIA [id number] [place] [address] [place] WBC (Bld) [#/Vol] 15.33 10*3/uL High 3.70-11.00 [facility] Comment on above: Order Comment: Speci men Type: BLOOD SPECIMENOrdering Facility: [facility] Address: [address] Performed By: #### 5 8410-2 ####[facility] LABIA [id number] [place] [address] [place] CNDSon 11-17-2022 CNDS Normal [facility] CONSULT PROGon 11-17-2022 CONSULT PROG Normal [facility] CRP SerPl-mCncon 11-17-2022 CRP [Mass/Vol] 17.7 mg/dL High <0.9 [facility] Comment on above: Order Comment: Speci men Type: BLOOD SPECIMENOrdering Facility: [facility] Address: [address] Performed By: #### 2 4321-2, 1987-, 03575-7 ####[facility] LABCLIA [id number] [place] [address] [place] ECG COMPLETEon 11-17-2022 ECG COMPLETE Normal [facility] MEDICAL EMERon 11-17-2022 MEDICAL ANITRA Normal [facility] Magnesium SerPl-mCncon 11-17 Magnesium [Mass/Vol] 2.3 mg/dL Normal 1.7-2.3 [facility] Comment on above: Order Comment: Matti bernal Type: BLOOD SPECIMENOrdering Facility: [facility] Address: [address] [place] [address] Performed By: #### 1 9123-9, 08824-3 ####[facility] LABCLIA [id number] [place] PT panel Coag (PPP)on 2022 INR Coag (PPP) [Relative time] 1.0 {INR} Normal 0.9-1.3 [facility] Comment on above: Order Comment: Matti bernal Type: BLOOD SPECIMENOrdering Facility: [facility] Address: [address] [place] [address] Result Comment: Sandra min K Antagonist (VKA) Therapeutic Range: INR 2 to 3 (Target INR of 2.5)Note: For patients treated with VKA drugs, such as warfarin, the [place] [employer] 2012 Guideline recommends a therapeutic INR range of 2 to 3 (target INR of 2.5). This recommendation includes high-risk patients with antiphospholipid syndrome with previous arterial or venous thromboembolism, current-generation mechanical or bioprosthetic aortic heart valve replacement.Note: Patients with mechanical aortic valve replacement and additional risk factors for thromboembolic events (atrial fibrillation, previous thromboembolism, LV dysfunction, hypercoagulable conditions) or an older generation mechanical AVR (i.e., ball in-Cage) or any mechanical MVR should have a INR therapeutic range of 2.5 to 3.5 (target INR of 3).Linda GH, et al. Chest 2012, 141:7S-47SNishimura RA, et al. [facility] 2017, 70: 252-289 Performed By: #### 3 4528-0 ####[facility] LABCLIA [id number] [place] [address] [place] PT Coag (PPP) [Time] 10.5 s Normal 9.7-13.0 [facility] Comment on above: Order Comment: Speci men Type: BLOOD SPECIMENOrdering Facility: [facility] Address: [address] Performed By: #### 3 4528-0 ####[facility] LABCLIA [id number] [place] [address] [place] Prealb SerPl-mCncon 11-17-19 Prealbumin [Mass/Vol] 13 mg/dL Low 17-36 [facility] Comment on above: Order Comment: Speci men Type: BLOOD SPECIMENOrdering Facility: [facility] Address: [address] [place] [address] Performed By: #### 2 4321-2, 1987-5, 16366-4 ####[facility] LABCLIA [id number] [place] [address] [place] Renal function 2000 panelon 11-17-2022 Albumin [Mass/Vol] 2.9 g/dL Low 3.9-4.[address] [facility] Comment on above: Order Comment: Speci men Type: BLOOD SPECIMENOrdering Facility: [facility] Address: [address] Performed By: #### 1 9123-9, 28811-7 ####[facility] LABCLIA [id number] [place] [address] [place] Anion gap [Moles/Vol] 6 mmol/L Low 9-18 [facility] Comment on above: Order Comment: Speci men Type: BLOOD SPECIMENOrdering Facility: [facility] Address: [address] Performed By: #### 1 9123-9, 60134-1 ####[facility] LABCLIA [id number] [place] [id number] [place] Calcium [Mass/Vol] 8.0 mg/dL Low 8.5-10.[address] [facility] Comment on above: Order Comment: Speci men Type: BLOOD SPECIMENOrdering Facility: [facility] Address: [address] [place] [address] Performed By: #### 1 9123-9, 23952-4 ####[facility] LABCLIA [id number] [place] [address] [place] Chloride [Moles/Vol] 108 mmol/L High 97-105 [facility] Comment on above: Order Comment: Speci men Type: BLOOD SPECIMENOrdering Facility: [facility] Address: [address] [place] [address] Performed By: #### 1 9123-9, 10050-5 ####[facility] LABCLIA [id number] [place] [address] [place] CO2 [Moles/Vol] 27 mmol/L Normal 22-30 [facility] Comment on above: Order Comment: Speci men Type: BLOOD SPECIMENOrdering Facility: [facility] Address: [address] [place] [address] Performed By: #### 1 9123-9, 26891-8 ####[facility] LABCLIA [id number] [place] [address] [place] Creatinine [Mass/Vol] 0.84 mg/dL Normal 0.58-0.96 [facility] Comment on above: Order Comment: Speci men Type: BLOOD SPECIMENOrdering Facility: [facility] Address: [address] Performed By: #### 1 9123-9, 59932-5 ####[facility] LABCLIA [id number] [place] [address] [place] ESTIMATED GLOMERULAR FILTRATION RATE 82 mL/min/1.73m??? Normal >=60 [facility] Comment on above: Order Comment: Speci men Type: BLOOD SPECIMENOrdering Facility: [facility] Address: [address] Result Comment: Karen mated Glomerular Filtration Rate (eGFR) is calculated using the 2020 CKD-EPI creatinine equation. This equation utilizes serum creatinine, sex, and age as parameters. The creatinine assay has traceable calibration to isotope dilution-mass spectrometry. Refer to KDIGO guidelines for clinical interpretation. In patients with unstable renal function, e.g. those with acute kidney injury, the eGFR may not accurately reflect actual GFR. Performed By: #### 1 9123-9, 83552-8 ####[facility] LABCLIA [id number] [place] [address] [place] Glucose [Mass/Vol] 151 mg/dL High 74-[address] [facility] Comment on above: Order Comment: Matti bernal Type: BLOOD SPECIMENOrdering Facility: [facility] Address: [address] [place] [address] Result Comment: The [place] Diabetes Association (ADA) provides guidance for cutoff values for fasting glucose and random glucose. The ADA defines fasting as no caloric intake for at least 8 hours. Fasting plasma glucose results between 100 to 125 mg/dL indicate increased risk for diabetes (prediabetes).Fasting plasma glucose results greater than or equal to 126 mg/dL meet the criteria for diagnosis of diabetes. In the absence of unequivocal hyperglycemia, results should be confirmed by repeat testing. In a patient with classic symptoms of hyperglycemia or hyperglycemic crisis, random plasma glucose results greater than or equal to 200 mg/dL meet the criteria for diagnosis of diabetes.Reference: Standards of Medical Care in Diabetes 2016, [place] Diabetes Association. Diabetes Care. 2016.39(Suppl 1). Performed By: #### 1 9123-9, 79558-4 ####[facility] LABIA [id number] [place] [address] [place] Phosphate [Mass/Vol] 2.8 mg/dL Normal 2.7-4.8 [facility] Comment on above: Order Comment: Matti bernal Type: BLOOD SPECIMENOrdering Facility: [facility] Address: [address] [place], [place] [address] Performed By: #### 1 9123-9, 50028-6 ####[facility] LABCLIA [id number] [place] [address] [place] Potassium [Moles/Vol] 4.6 mmol/L Normal 3.7-5.1 [facility] Comment on above: Order Comment: Speci men Type: BLOOD SPECIMENOrdering Facility: [facility] Address: [address] [place] [address] Performed By: #### 1 9123-9, 42530-8 ####[facility] LABCLIA [id number] [place] [address] [place] Sodium [Moles/Vol] 141 mmol/L Normal 136-[address] [facility] Comment on above: Order Comment: Speci men Type: BLOOD SPECIMENOrdering Facility: [facility] Address: [address] [place] [address] Performed By: #### 1 9123-9, 24548-7 ####[facility] LABCLIA [id number] [place] [address] [place] Urea nitrogen [Mass/Vol] 9 mg/dL Normal 7-21 [facility] Comment on above: Order Comment: Speci men Type: BLOOD SPECIMENOrdering Facility: [facility] Address: [address] [place] [address] Performed By: #### 1 9123-9, 60403-1 ####[facility] LABIA [id number] [place] [address] [place] XR ABDOMEN 1V SUPINEon 11-17 XR ABDOMEN 1V SUPINE Normal [facility] XR CHEST 1V FRONTAL PORTon 0 11-17-2022 XR CHEST 1V FRONTAL PORT Normal [facility] ANES PRE-OPon 11-16-2022 ANES PRE-OP Normal [facility] BRIEF OP NOTon 11-16-2022 BRIEF OP NOT Normal [facility] CBC panel Auto (Bld)on 11-16 Erythrocyte distribution width (RBC) [Ratio] 18.8 % High 11.5-15.0 [facility] Comment on above: Order Comment: Speci men Type: BLOOD SPECIMENOrdering Facility: [facility] Address: [address] Performed By: #### 5 8410-2 ####[facility] LABIA [id number] [place] [address] [place] Hematocrit (Bld) [Volume fraction] 38.4 % Normal 36.0-46.0 [facility] Comment on above: Order Comment: Speci men Type: BLOOD SPECIMENOrdering Facility: [facility] Address: [address] Performed By: #### 5 8410-2 ####[facility] LABIA [id number] [place] [address] [place] Hemoglobin (Bld) [Mass/Vol] 11.5 g/dL Normal 11.5-15.5 [facility] Comment on above: Order Comment: Speci men Type: BLOOD SPECIMENOrdering Facility: [facility] Address: [address] Performed By: #### 5 8410-2 ####[facility] LABIA [id number] [place] [address] [place] MCH (RBC) [Entitic mass] 27.8 pg Normal 26.0-34.0 [facility] Comment on above: Order Comment: Speci men Type: BLOOD SPECIMENOrdering Facility: [facility] Address: [address] Performed By: #### 5 8410-2 ####[facility] LABIA [id number] [place] [address] [place] MCHC (RBC) [Mass/Vol] 29.9 g/dL Low 30.5-36.0 [facility] Comment on above: Order Comment: Speci men Type: BLOOD SPECIMENOrdering Facility: [facility] Address: [address] Performed By: #### 5 8410-2 ####[facility] LABIA [id number] [address] [place] MCV (RBC) [Entitic vol] 92.8 fL Normal 80.0-100.0 [facility] Comment on above: Order Comment: Speci men Type: BLOOD SPECIMENOrdering Facility: [facility] Address: [address] [place], [place] [address] Performed By: #### 5 8410-2 ####[facility] LABIA [id number] [place] [address] [place] Nucleated RBC (Bld) [#/Vol] 10*3/uL Normal <0.01 [facility] Comment on above: Order Comment: Speci men Type: BLOOD SPECIMENOrdering Facility: [facility] Address: [address] [place], [place] [address] Performed By: #### 5 8410-2 ####[facility] LABIA [id number] [place] [address] [place] Platelet mean volume (Bld) [Entitic vol] 10.8 fL Normal 9.0-12.7 [facility] Comment on above: Order Comment: Speci men Type: BLOOD SPECIMENOrdering Facility: [facility] Address: [address] [place] [address] Performed By: #### 5 8410-2 ####[facility] LABIA [id number] [place] [address] [place] Platelets (Bld) [#/Vol] 248 10*3/uL Normal 150-400 [facility] Comment on above: Order Comment: Speci men Type: BLOOD SPECIMENOrdering Facility: [facility] Address: [address] [place] [address] Performed By: #### 5 8410-2 ####[facility] LABIA [id number] [place] [address] [place] RBC (Bld) [#/Vol] 4.14 10*6/uL Normal 3.90-5.20 [facility] Comment on above: Order Comment: Speci men Type: BLOOD SPECIMENOrdering Facility: [facility] Address: [address] [place] [address] Performed By: #### 5 8410-2 ####[facility] LABCLIA [id number] [place] [address] [place] WBC (Bld) [#/Vol] 13.99 10*3/uL High 3.70-11.00 [facility] Comment on above: Order Comment: Speci men Type: BLOOD SPECIMENOrdering Facility: [facility] Address: [address] [place] [address] Performed By: #### 5 8410-2 ####[facility] LABCLIA [id number] [place] [address] [place] CONSULT PROGon 11-16-2022 CONSULT PROG Normal [facility] CONSULT PROG Normal [facility] Comprehensive metabolic 2000 panelon 11-16-2022 Albumin [Mass/Vol] 3.2 g/dL Low 3.9-4.[address] [facility] Comment on above: Order Comment: Speci men Type: BLOOD SPECIMENOrdering Facility: [facility] Address: [address] [place], [place] [address] Performed By: #### 2 777-1, 13022-7, ####[facility] LABCLIA [id number] [place] [address] [place] ALP [Catalytic activity/Vol] 217 U/L High 34-123 [facility] Comment on above: Order Comment: Speci men Type: BLOOD SPECIMENOrdering Facility: [facility] Address: [address] [place], [place] [address] Performed By: #### 2 777-1, 20260-6, ####[facility] LABCLIA [id number] [place] [address] [place] ALT [Catalytic activity/Vol] 124 U/L High 7-38 [facility] Comment on above: Order Comment: Speci men Type: BLOOD SPECIMENOrdering Facility: [facility] Address: [address] [place] [address] Performed By: #### 2 777-1, 82605-2, ####[facility] LABCLIA [id number] [place] [address] [place] Anion gap [Moles/Vol] 13 mmol/L Normal 9-18 [facility] Comment on above: Order Comment: Speci men Type: BLOOD SPECIMENOrdering Facility: [facility] Address: [address] [place] [address] Performed By: #### 2 777-1, , ####[facility] LABCLIA [id number] [place] [address] [place] AST [Catalytic activity/Vol] 74 U/L High 13-35 [facility] Comment on above: Order Comment: Speci men Type: BLOOD SPECIMENOrdering Facility: [facility] Address: [address] [place] [address] Performed By: #### 2 777-1, 04863-5, ####[facility] LABCLIA [id number] [place] [address] [place] Bilirubin [Mass/Vol] 1.4 mg/dL High 0.2-1.3 [facility] Comment on above: Order Comment: Speci men Type: BLOOD SPECIMENOrdering Facility: [facility] Address: [address] [place] [address] Performed By: #### 2 777-1, 36102-7, 23465-7 ####[facility] LABCLIA [id number] [place] [address] [place] Calcium [Mass/Vol] 8.2 mg/dL Low 8.5-10.[address] [facility] Comment on above: Order Comment: Speci men Type: BLOOD SPECIMENOrdering Facility: [facility] Address: [address] [place] [address] Performed By: #### 2 777-1, 49707-1, ####[facility] LABCLIA [id number] [place] [address] [place] Chloride [Moles/Vol] 108 mmol/L High 97-105 [facility] Comment on above: Order Comment: Speci men Type: BLOOD SPECIMENOrdering Facility: [facility] Address: [address] [place] [address] Performed By: #### 2 777-1, 84902-9, ####[facility] LABCLIA [id number] [place] [address] [place] CO2 [Moles/Vol] 23 mmol/L Normal 22-30 [facility] Comment on above: Order Comment: Speci men Type: BLOOD SPECIMENOrdering Facility: [facility] Address: [address] [place] [address] Performed By: #### 2 777-1, 11197-5, ####[facility] LABCLIA [id number] [place] [address] [place] Creatinine [Mass/Vol] 0.76 mg/dL Normal 0.58-0.96 [facility] Comment on above: Order Comment: Speci men Type: BLOOD SPECIMENOrdering Facility: [facility] Address: [address] [place], [place] [address] Performed By: #### 2 777-1, 82992-1, ####[facility] LABCLIA [id number] [address] [id number] [address] [place] ESTIMATED GLOMERULAR FILTRATION RATE 92 mL/min/1.73m??? Normal >=60 [facility] Comment on above: Order Comment: Matti bernal Type: BLOOD SPECIMENOrdering Facility: [facility] Address: [place] [address] Result Comment: Karen mated Glomerular Filtration Rate (eGFR) is calculated using the 2020 CKD-EPI creatinine equation. This equation utilizes serum creatinine, sex, and age as parameters. The creatinine assay has traceable calibration to isotope dilution-mass spectrometry. Refer to KDIGO guidelines for clinical interpretation. In patients with unstable renal function, e.g. those with acute kidney injury, the eGFR may not accurately reflect actual GFR. Performed By: #### 2 777-1, 68965-4, ####[facility] LABIA [id number] [place] [id number] [place] Glucose [Mass/Vol] 224 mg/dL High 74-[address] [facility] Comment on above: Order Comment: Matti bernal Type: BLOOD SPECIMENOrdering Facility: [facility] Address: [address] [place] [phone] Result Comment: The [place] Diabetes Association (ADA) provides guidance for cutoff values for fasting glucose and random glucose. The ADA defines fasting as no caloric intake for at least 8 hours. Fasting plasma glucose results between 100 to 125 mg/dL indicate increased risk for diabetes (prediabetes).Fasting plasma glucose results greater than or equal to 126 mg/dL meet the criteria for diagnosis of diabetes. In the absence of unequivocal hyperglycemia, results should be confirmed by repeat testing. In a patient with classic symptoms of hyperglycemia or hyperglycemic crisis, random plasma glucose results greater than or equal to 200 mg/dL meet the criteria for diagnosis of diabetes.Reference: Standards of Medical Care in Diabetes 2016, [place] Diabetes Association. Diabetes Care. 2016.39(Suppl 1). Performed By: #### 2 777-1, 82333-6, ####[facility] LABIA [id number] [address] [address] [place] Potassium [Moles/Vol] 4.6 mmol/L Normal 3.7-5.1 [facility] Comment on above: Order Comment: Speci men Type: BLOOD SPECIMENOrdering Facility: [facility] Address: [address] Performed By: #### 2 777-1, , ####[facility] LABCLIA [id number] [place] [address] [place] Protein [Mass/Vol] 5.5 g/dL Low 6.3-8.[address] [facility] Comment on above: Order Comment: Speci men Type: BLOOD SPECIMENOrdering Facility: [facility] Address: [address] [place] [address] Performed By: #### 2 777-1, , ####[facility] LABCLIA [id number] [place] [address] [place] Sodium [Moles/Vol] 144 mmol/L Normal 136-[address] [facility] Comment on above: Order Comment: Speci men Type: BLOOD SPECIMENOrdering Facility: [facility] Address: [address] [place], [place] [address] Performed By: #### 2 777-1, , ####[facility] LABCLIA [id number] [place] [address] [place] Urea nitrogen [Mass/Vol] 5 mg/dL Low 7-21 [facility] Comment on above: Order Comment: Speci men Type: BLOOD SPECIMENOrdering Facility: [facility] Address: [address] Performed By: #### 2 777-1, , ####[facility] LABCLIA [id number] [address] [address] [place] HFE (HEMOCHROMATOSIS)on INTERPRETATION (HEMDNA) Normal [facility] Comment on above: Order Comment: Speci men Type: BLOOD SPECIMENOrdering Facility: [facility] Address: [address] [place] [id number] Result Comment: HFE (Hemochromatosis)Laboratory Accession Number: [id number]:C282Y: WTH63D: WTS65C: WTInterpretation:No variant detected:The DNA sample is negative for the C282Y, H63D and S65C variants ofthe HFE gene. Variants at these loci are commonly associated withhereditary hemochromatosis (HH). Approximately 13% of clinicallyaffected individuals may have this negative result, suggesting otheretiologies for hereditary hemochromatosis.Methodology:Patient DNA is evaluated for C282Y (c.845G>A, p.Kbg584Got,NM_000410.3), H63D (c.187C>G, p.Acw87Kjs, NM_000410.3) and E46Tydjxqni (c.193A>T, p.Iao79Poy, NM_000410.3) missense variants in theHFE gene (NM_000410.3, GRCh37(hg19)) by multiplex polymerase chainreaction (PCR) followed by melting curve analysis.Disclaimer:This test was developed and its performance characteristics determinedby [facility] [place] ([facility]). It has not been cleared or approved bythe FDA. -[facility] is regulated under CLIA as certified to perform high-complexity testing. This test is used for clinical purposes. It shouldnot be regarded as investigational or for research.Testing and interpretation performed at [facility], [address] [place] [address]. CLIA Number: [id number] reviewed by Martha Davis, PhD, [facility] Performed By: #### H EMDLOU ####[facility] [id number] [place] [address] [place] Magnesium SerPl-mCncon 11-16 Magnesium [Mass/Vol] 1.3 mg/dL Low 1.7-2.3 [facility] Comment on above: Order Comment: Speci men Type: BLOOD SPECIMENOrdering Facility: [facility] Address: [address] [place] [address] Performed By: #### 2 777-1, 12329-3, ####[facility] LABCLIA [id number] [place] [id number] [place] OPERATIVE NOon 11-16-2022 OPERATIVE NO Normal [facility] Phosphate SerPl-mCncon 11-16 Phosphate [Mass/Vol] 4.5 mg/dL Normal 2.7-4.8 [facility] Comment on above: Order Comment: Speci men Type: BLOOD SPECIMENOrdering Facility: [facility] Address: [address] [place] [address] Performed By: #### 2 777-1, , ####[facility] LABCLIA [id number] [address] OF [place] SURGICAL PATHOLOGYon 023 CASE REPORT Normal [facility] Comment on above: Order Comment: Speci men Type: TISSUE SPECIMENOrdering Facility: [facility] Address: [address] [place] [address] Result Comment: Surg ical Pathology Report Case: [id number] Provider: Edy No DO Collected: 11/16/2022 06:00 PMOrdering Location: Admitting Received: 11/17/2022 07:45 AMPathologist: Ana Parker MD, PhDSpecimens: A) - ILEUM RESECTION, Ileocolic Anastomosis B) - LIVER BIOPSY, Liver Biopsy Performed By: #### S ####[facility] LABCLIA [id number] [place] [address] [place] CLINICAL HISTORY Normal [facility] Comment on above: Order Comment: Speci men Type: TISSUE SPECIMENOrdering Facility: [facility] Address: [address] [place] [address] Result Comment: Pre- op diagnosis:Bowel obstruction (HCC) [K56.609] Performed By: #### S ####[facility] LABCLIA [id number] [id number] [address] [place] DIAGNOSIS COMMENT Normal [facility] [place] Comment on above: Order Comment: Speci men Type: TISSUE SPECIMENOrdering Facility: [facility] Address: [address] [facility] [place] [address] Result Comment: A. M ultiple strictured areas are noted grossly in the small bowel. The histologic sections demonstrate chronic active enteritis, pseudopolyps, submucosal fibrosis, transmural lymphoid aggregates as well as patchy pyloric gland metaplasia. Well-formed granulomas are not evident. The sections from the colon are largely unremarkable. There is no definite evidence of dysplasia or viral inclusions. Overall, the histologic changes are in keeping with the patient's history of Crohn's disease. Immunostains for CMV and adenovirus are negative for viral inclusions.B. The histologic sections demonstrate liver parenchyma with intact lobular architecture. The portal tracts contain no significant inflammation. The kashia bile ducts are intact with no significant ductular reaction. The lobular parenchyma is remarkable for moderate macrovesicular steatosis (both large and small droplet, involving about 45% of the parenchyma). mild lobular inflammation consisting of neutrophils and lymphocytes, associated with scattered clusters of pigment-laden Kupffer cells. There is no evidence of cholestasis. The trichrome stain demonstrates no definitive evidence of fibrosis. The PASD stain reveals no evidence of rflsg-4-fwsfmksaryu globules. An iron stain is positive for moderate iron deposition predominantly within Kupffer cells. Given the patient's history of chronic elevation of alkaline phosphatase, a Rhodanine stain has been performed which is negative for copper deposition.Overall, the liver biopsy demonstrates moderate macrovesicular steatosis and moderate hemosiderosis within Kupffer cells. Clinical correlation is recommended for the etiology of hemosiderosis.Laboratory Developed Test (LDT) Disclaimer:Performance characteristics of immunohistochemical, immunofluorescent and chromogenic in-situ hybridization tests have been determined by the performing laboratory within [facility]???[facility] [place] ([facility], [facility], [facility], [facility], [facility], or [facility]) in a manner consistent with CLIA requirements. One or more of these tests have not been cleared or approved by the FDA. [facility] is regulated under CLIA as qualified to perform high-complexity testing. These tests are used for clinical purposes. They should not be regarded as investigational or for research. Positive and negative controls stain appropriately. Performed By: #### S ####[facility] LABCLIA [id number] [address] FINAL DIAGNOSIS Normal [facility] Comment on above: Order Comment: Matti bernal Type: TISSUE SPECIMENOrdering Facility: [facility] Address: [address] [address] Result Comment: A. I leum and colon, ileocolic resection:- Patchy chronic active enteritis with features consistent with the patient's known history of Crohn's disease.- Features of prior anastomosis site and possible ostomy site changes.- Benign lymph nodes.- See comment.B. Liver, biopsy:- Moderate macrovesicular steatosis.- Moderate hemosiderosis.- See comment. Performed By: #### S ####[facility] LABIA [id number] [address] STATES OF [facility] FINAL PERFORMING LAB Normal [facility] Comment on above: Order Comment: Matti bernal Type: TISSUE SPECIMENOrdering Facility: [facility] Address: [address] [address] Result Comment: Diag nostic interpretation performed at [facility], [address] [address] CLIA# [id number] Director: Trever Sun M.D. Performed By: #### S ####[facility] LABIA [id number] [address] OF [facility] GROSS DESCRIPTION Normal [facility] Comment on above: Order Comment: Matti bernal Type: TISSUE SPECIMENOrdering Facility: [facility] Address: [address] [address] Result Comment: A. I LEUM RESECTIONReceived fresh, labeled Ileum resection: Ileocolic Anastomosis is a segment of small bowel (18.5 cm in length) anastomosed to a segment of possible colon 9.0 cm in length by 7.8 cm in internal circumference). The anastomotic site is intact, without exudate or fistula tracts. The small bowel mesenteric fat is thickened and fat wrapping is identified. The serosal surface of the small bowel is pink-schultz and contains multiple adhesions. An opening is present along the small bowel, with cautery and irregular mucosa consistent with an ostomy. This area measures 3.4 x 1.5 cm and is 9.5 cm from the proximal margin and 7.5 cm from the distal margin.On opening, the bowel does not lie flat, and the small intestinal mucosa is erythematous and granular in appearance with areas of edema. Three strictures are identified. The first is 2.5 cm from the proximal margin, 4.0 from the closest mesenteric margin, and extends for a length of 3.0 cm, with an internal circumference of 1.8 cm and a wall thickness of 1.0 cm. The second is 6.5 from the proximal margin, 4.5 from the closest mesenteric margin, and extends for a length of 1.0 cm, with an internal circumference of 2.0 cm and a wall thickness of 0.8 cm. The third stricture is identified directly proximal to the anastomosis and is 0.9 cm in length, with an internal circumference of 0.9 cm, and a wall thickness of 0.6 cm. The closest mesenteric margin is 5.0 cm away. Proximal to these strictures, the internal circumference is 6.0 cm with a wall thickness of 0.6 cm. Sectioning through these strictures reveals intact bowel wall layers without evidence of a mass lesion. Proximal to the strictured areas, the mucosa is schultz-red and granular. A possible polypoid structure is identified 3.5 cm from the proximal margin, which measures 0.4 x 0.3 x 0.3 cm.The segment small bowel is anastomosed to an irregular pouch of large bowel. The anastomosis is 0.8 cm from the distal margin. Two blind ends are appreciated opposing the distal mucosal margin. The presumed colonic mucosa is schultz with the usual mucosal folds. Gross photographs are taken.Neurological Surgeon sections are submitted as follows:A1: Proximal and distal margins, perpendicularA2: Transition from non-stricture to stricture #1 at 2.5 cm from proximal margin, to include entire polypoid structureA3: StrictureA4: Transition from stricture to non-stricture #1 at 5.0 cm from proximal marginA5: Transition from stricture to non-stricture #2 at 6.5 cm from proximal marginA6: Ostomy siteA7-A9: Transition from stricture #3 through possible anastomotic site to second possible anastomotic site. Possible proximal ends inked orange, submitted sequentially from more proximal.A10: Possible anastomotic siteA11: Four possible lymph nodesGross examination performed at [facility], [address] [place] [address] 11/17/22 3:25 PMB. LIVER BIOPSYReceived in formalin on Telfa gauze are multiple segments of cylindrical tissue aggregating to 1.4 x 0.4 x 0.2 cm, schultz and of a friable consistency. Totally submitted in one cassette.CL November 17, 2022 12:02 PMGross [place] [address] Performed By: #### S ####[facility] LABCLIA [id number] [place] [address] [place] ALLIED HEALTHon 11-15-2022 ALLIED HEALTH Normal [facility] ALLIED HEALTH Normal [facility] ALPHA 1 ANTITRYPSIN PHENOTYP Mumtaz 11-15-2022 ALPHA 1 ANTITRYP PHENOTYPE M1M1 Normal [facility] Comment on above: Order Comment: Speci men Type: BLOOD SPECIMENOrdering Facility: [facility] Address: [address] [place] [address] Result Comment: The patient appears to have a normal phenotype. All M alleles(including subtypes M1, M2, and M3) produce normal serumconcentrations of ugmim-4-lofiwyfd inhibitor and are notassociated with clinical disease. Caution in interpretation isadvised if the patient has been transfused within the previous 21days.Performed By: [facility] [place], [place] [address]Cnlvxguzly Director: Kyle Ledesma MD, PhD Performed By: #### A 1APHE ####[facility] [id number] [place] [address] ALPHA 1 ANTITRYP SERUM 166 mg/dL Normal 90-200 [facility] Comment on above: Order Comment: Speci men Type: BLOOD SPECIMENOrdering Facility: [facility] Address: [address] [place] [address] Result Comment: To c onvert to umol/L, multiply mg/dL by 0.185 Performed By: #### A 1APHE ####[facility]IA [id number] [place] [address] CASE MANAGEMon 11-15-2022 CASE MANAGEM Normal [facility] CBC panel Auto (Bld)on 11-15 Erythrocyte distribution width (RBC) [Ratio] 18.1 % High 11.5-15.0 [facility] Comment on above: Order Comment: Speci men Type: BLOOD SPECIMENOrdering Facility: [facility] Address: [address] [place] [address] Performed By: #### 5 8410-2 ####[facility] LABCLIA [id number] [address] [place] Hematocrit (Bld) [Volume fraction] 37.1 % Normal 36.0-46.0 [facility] Comment on above: Order Comment: Speci men Type: BLOOD SPECIMENOrdering Facility: [facility] Address: [address] [place] [address] Performed By: #### 5 8410-2 ####[facility] LABCLIA [id number] [place] [address] [place] Hemoglobin (Bld) [Mass/Vol] 11.7 g/dL Normal 11.5-15.5 [facility] Comment on above: Order Comment: Speci men Type: BLOOD SPECIMENOrdering Facility: [facility] Address: [address] [place] [address] Performed By: #### 5 8410-2 ####[facility] LABCLIA [id number] [facility] [place] [address] [place] MCH (RBC) [Entitic mass] 27.3 pg Normal 26.0-34.0 [facility] Comment on above: Order Comment: Speci men Type: BLOOD SPECIMENOrdering Facility: [facility] Address: [address] Performed By: #### 5 8410-2 ####[facility] LABIA [id number] [place] [address] [place] MCHC (RBC) [Mass/Vol] 31.5 g/dL Normal 30.5-36.0 [facility] Comment on above: Order Comment: Speci men Type: BLOOD SPECIMENOrdering Facility: [facility] Address: [address] [place], [place] [address] Performed By: #### 5 8410-2 ####[facility] LABIA [id number] [place] [address] [place] MCV (RBC) [Entitic vol] 86.7 fL Normal 80.0-100.0 [facility] Comment on above: Order Comment: Speci men Type: BLOOD SPECIMENOrdering Facility: [facility] Address: [address] [place], [place] [address] Performed By: #### 5 8410-2 ####[facility] LABIA [id number] [place] [address] [place] Nucleated RBC (Bld) [#/Vol] 10*3/uL Normal <0.01 [facility] Comment on above: Order Comment: Speci men Type: BLOOD SPECIMENOrdering Facility: [facility] Address: [address] Performed By: #### 5 8410-2 ####[facility] LABIA [id number] [place] [address] [place] Platelet mean volume (Bld) [Entitic vol] 10.5 fL Normal 9.0-12.7 [facility] Comment on above: Order Comment: Speci men Type: BLOOD SPECIMENOrdering Facility: [facility] Address: [address] [place] [id number] Performed By: #### 5 8410-2 ####[facility] LABCLIA [id number] [place] [address] [place] Platelets (Bld) [#/Vol] 297 10*3/uL Normal 150-400 [facility] Comment on above: Order Comment: Speci men Type: BLOOD SPECIMENOrdering Facility: [facility] Address: [address] Performed By: #### 5 8410-2 ####[facility] LABIA [id number] [address] OF [facility] RBC (Bld) [#/Vol] 4.28 10*6/uL Normal 3.90-5.20 [facility] Comment on above: Order Comment: Speci men Type: BLOOD SPECIMENOrdering Facility: [facility] Address: [address] Performed By: #### 5 8410-2 ####[facility] LABIA [id number] [address] [place] WBC (Bld) [#/Vol] 9.78 10*3/uL Normal 3.70-11.00 [facility] Comment on above: Order Comment: Speci men Type: BLOOD SPECIMENOrdering Facility: [facility] Address: [address] [place] [address] Performed By: #### 5 8410-2 ####[facility] LABIA [id number] [place] [address] [place] Erythrocyte distribution width (RBC) [Ratio] 17.6 % High 11.5-15.0 [facility] Comment on above: Order Comment: Speci men Type: BLOOD SPECIMENOrdering Facility: [facility] Address: [address] [place], [place] [address] Performed By: #### 5 8410-2 ####[facility] LABIA [id number] [place] [address] [place] Hematocrit (Bld) [Volume fraction] 34.4 % Low 36.0-46.0 [facility] Comment on above: Order Comment: Speci men Type: BLOOD SPECIMENOrdering Facility: [facility] Address: [address] [place] [address] Performed By: #### 5 8410-2 ####[facility] [id number] [place] [address] [place] Hemoglobin (Bld) [Mass/Vol] 10.6 g/dL Low 11.5-15.5 [facility] Comment on above: Order Comment: Speci men Type: BLOOD SPECIMENOrdering Facility: [facility] Address: [address] [place] [address] Performed By: #### 5 8410-2 ####[facility] [id number] [address] [place] MCH (RBC) [Entitic mass] 27.5 pg Normal 26.0-34.0 [facility] Comment on above: Order Comment: Speci men Type: BLOOD SPECIMENOrdering Facility: [facility] Address: [address] [place] [address] Performed By: #### 5 8410-2 ####[facility] [id number] [place] [address] [place] MCHC (RBC) [Mass/Vol] 30.8 g/dL Normal 30.5-36.0 [facility] Comment on above: Order Comment: Speci men Type: BLOOD SPECIMENOrdering Facility: [facility] Address: [address] [place] [address] Performed By: #### 5 8410-2 ####[facility] [id number] [place] [address] [place] MCV (RBC) [Entitic vol] 89.4 fL Normal 80.0-100.0 [facility] Comment on above: Order Comment: Speci men Type: BLOOD SPECIMENOrdering Facility: [facility] Address: [address] [place], [place] [address] Performed By: #### 5 8410-2 ####[facility] LABCLIA [id number] [place] [address] [place] Nucleated RBC (Bld) [#/Vol] 10*3/uL Normal <0.01 [facility] Comment on above: Order Comment: Speci men Type: BLOOD SPECIMENOrdering Facility: [facility] Address: [address] [place], [place] [address] Performed By: #### 5 8410-2 ####[facility] LABIA [id number] [place] [address] [place] Platelet mean volume (Bld) [Entitic vol] 10.8 fL Normal 9.0-12.7 [facility] Comment on above: Order Comment: Speci men Type: BLOOD SPECIMENOrdering Facility: [facility] Address: [address] [place], [place] [address] Performed By: #### 5 8410-2 ####[facility] LABIA [id number] [place] [address] [place] Platelets (Bld) [#/Vol] 279 10*3/uL Normal 150-400 [facility] Comment on above: Order Comment: Speci men Type: BLOOD SPECIMENOrdering Facility: [facility] Address: [address] [place] [address] Performed By: #### 5 8410-2 ####[facility] LABIA [id number] [place] [address] [place] RBC (Bld) [#/Vol] 3.85 10*6/uL Low 3.90-5.20 [facility] Comment on above: Order Comment: Speci men Type: BLOOD SPECIMENOrdering Facility: [facility] Address: [address] [address] Performed By: #### 5 8410-2 ####[facility] [id number] [place] [address] [place] WBC (Bld) [#/Vol] 5.31 10*3/uL Normal 3.70-11.00 [facility] Comment on above: Order Comment: Speci men Type: BLOOD SPECIMENOrdering Facility: [facility] Address: [address] [place] [address] Performed By: #### 5 8410-2 ####[facility] [id number] [address] OF [facility] CONSULTon 11-15-2022 CONSULT Normal [facility] CONSULT PROGon 11-15-2022 CONSULT PROG Normal [facility] CONSULT PROG Normal [facility] COPPER BLOODon 11-15-2022 Copper [Mass/Vol] 74 ug/dL Low 80-155 [facility] Comment on above: Order Comment: Speci men Type: BLOOD SPECIMENOrdering Facility: [facility] Address: [address] [place] [address] Result Comment: This test was developed and its performance characteristics determined by [facility]'s [facility] Pathology and Laboratory Medicine [place] (-PL[facility]). It has not been cleared or approved by the FDA. [facility] is regulated under CLIA as qualified to perform high-complexity testing. This test is used for clinical purposes. It should not be regarded as investigational or for research. Performed By: #### C OPPER ####[facility] [id number] [place] [address] [place] Comprehensive metabolic 2000 panelon 11-15-2022 Albumin [Mass/Vol] 4.2 g/dL Normal 3.9-4.[address] [facility] Comment on above: Order Comment: Speci men Type: BLOOD SPECIMENOrdering Facility: [facility] Address: [address] [place] [address] Performed By: #### 2 4323-8, 72417-9, 2776- ####[facility] LABCLIA [id number] [place] [address] [place] ALP [Catalytic activity/Vol] 298 U/L High 34-123 [facility] Comment on above: Order Comment: Speci men Type: BLOOD SPECIMENOrdering Facility: [facility] Address: [address] Performed By: #### 2 4323-8, , 2776-10 ####[facility] LABIA [id number] [place] [address] [place] ALT [Catalytic activity/Vol] 192 U/L High 7-38 [facility] Comment on above: Order Comment: Speci men Type: BLOOD SPECIMENOrdering Facility: [facility] Address: [address] Performed By: #### 2 432-8, , 2776-10 ####[facility] LABIA [id number] [place] [address] [place] Anion gap [Moles/Vol] 13 mmol/L Normal 9-18 [facility] Comment on above: Order Comment: Speci men Type: BLOOD SPECIMENOrdering Facility: [facility] Address: [address] Performed By: #### 2 4323-8, , 2776-10 ####[facility] LABIA [id number] [place] [address] [place] AST [Catalytic activity/Vol] 64 U/L High 13-35 [facility] Comment on above: Order Comment: Speci men Type: BLOOD SPECIMENOrdering Facility: [facility] Address: [address] Performed By: #### 2 4323-8, , 2776-10 ####[facility] LABCLIA [id number] [place] [address] [place] Bilirubin [Mass/Vol] 0.8 mg/dL Normal 0.2-1.3 [facility] Comment on above: Order Comment: Speci men Type: BLOOD SPECIMENOrdering Facility: [facility] Address: [address] [address] Performed By: #### 2 4323-8, , 2776-10 ####[facility] LABCLIA [id number] [place] [address] [place] Calcium [Mass/Vol] 9.1 mg/dL Normal 8.5-10.[address] [facility] Comment on above: Order Comment: Speci men Type: BLOOD SPECIMENOrdering Facility: [facility] Address: [address] Performed By: #### 2 4323-8, , 2776-10 ####[facility] LABCLIA [id number] [place] [address] [place] Chloride [Moles/Vol] 101 mmol/L Normal 97-105 [facility] Comment on above: Order Comment: Speci men Type: BLOOD SPECIMENOrdering Facility: [facility] Address: [address] Performed By: #### 2 4323-8, , 2776-10 ####[facility] LABCLIA [id number] [place] [address] [place] CO2 [Moles/Vol] 26 mmol/L Normal 22-30 [facility] Comment on above: Order Comment: Speci men Type: BLOOD SPECIMENOrdering Facility: [facility] Address: [address] Performed By: #### 2 4323-8, , 2776-10 ####[facility] LABCLIA [id number] [place] [address] [place] Creatinine [Mass/Vol] 0.68 mg/dL Normal 0.58-0.96 [facility] Comment on above: Order Comment: Matti bernal Type: BLOOD SPECIMENOrdering Facility: [facility] Address: [address] [address] Performed By: #### 2 4323-8, , 2776-10 ####[facility] LABIA [id number] [place] [address] [place] ESTIMATED GLOMERULAR FILTRATION RATE 102 mL/min/1.73m??? Normal >=60 [facility] Comment on above: Order Comment: Matti bernal Type: BLOOD SPECIMENOrdering Facility: [facility] Address: [address] [place] [address] Result Comment: Karen mated Glomerular Filtration Rate (eGFR) is calculated using the 2020 CKD-EPI creatinine equation. This equation utilizes serum creatinine, sex, and age as parameters. The creatinine assay has traceable calibration to isotope dilution-mass spectrometry. Refer to KDIGO guidelines for clinical interpretation. In patients with unstable renal function, e.g. those with acute kidney injury, the eGFR may not accurately reflect actual GFR. Performed By: #### 2 4323-8, , 2776-10 ####[facility] LABIA [id number] [place] [address] [place] Glucose [Mass/Vol] 123 mg/dL High 74-[address] [facility] Comment on above: Order Comment: Matti bernal Type: BLOOD SPECIMENOrdering Facility: [facility] Address: [address] [address] Result Comment: The [place] Diabetes Association (ADA) provides guidance for cutoff values for fasting glucose and random glucose. The ADA defines fasting as no caloric intake for at least 8 hours. Fasting plasma glucose results between 100 to 125 mg/dL indicate increased risk for diabetes (prediabetes).Fasting plasma glucose results greater than or equal to 126 mg/dL meet the criteria for diagnosis of diabetes. In the absence of unequivocal hyperglycemia, results should be confirmed by repeat testing. In a patient with classic symptoms of hyperglycemia or hyperglycemic crisis, random plasma glucose results greater than or equal to 200 mg/dL meet the criteria for diagnosis of diabetes.Reference: Standards of Medical Care in Diabetes 2016, [place] [employer] Association. Diabetes Care. 2016.39(Suppl 1). Performed By: #### 2 4323-8, , 2776-10 ####[facility] LABCLIA [id number] [place] [address] [place] Potassium [Moles/Vol] 3.4 mmol/L Low 3.7-5.1 [facility] Comment on above: Order Comment: Speci men Type: BLOOD SPECIMENOrdering Facility: [facility] Address: [address] [place] [address] Performed By: #### 2 4328, , 2776-10 ####[facility] LABCLIA [id number] [place] [address] [place] Protein [Mass/Vol] 7.2 g/dL Normal 6.3-8.[address] [facility] Comment on above: Order Comment: Speci men Type: BLOOD SPECIMENOrdering Facility: [facility] Address: [address] [place], [place] [address] Performed By: #### 2 432-8, , 2776-10 ####[facility] LABCLIA [id number] [place] [address] [place] Sodium [Moles/Vol] 140 mmol/L Normal 136-[address] [facility] Comment on above: Order Comment: Speci men Type: BLOOD SPECIMENOrdering Facility: [facility] Address: [address] [place] [address] Performed By: #### 2 432-8, , 2776-10 ####[facility] LABCLIA [id number] [place] [id number] [place] Urea nitrogen [Mass/Vol] 4 mg/dL Low 7-21 [facility] Comment on above: Order Comment: Speci men Type: BLOOD SPECIMENOrdering Facility: [facility] Address: [address] [place], [place] [address] Performed By: #### 2 4323-8, 79821-8, 2776-1 ####[facility]CLIA [id number] [place] [address] [place] Albumin [Mass/Vol] 3.7 g/dL Low 3.9-4.[address] [facility] Comment on above: Order Comment: Speci men Type: BLOOD SPECIMENOrdering Facility: [facility] Address: [address] [place] [address] Performed By: #### 1 9123-9, 27704-08, 75805-7 ####[facility] LABCLIA [id number] [place] [address] [place] ALP [Catalytic activity/Vol] 312 U/L High 34-123 [facility] Comment on above: Order Comment: Speci men Type: BLOOD SPECIMENOrdering Facility: [facility] Address: [address] [place], [place] [address] Performed By: #### 1 9123-9, 2776-10, 95338-9 ####[facility]CL[facility] [id number] [place] [address] [place] ALT [Catalytic activity/Vol] 237 U/L High 7-38 [facility] Comment on above: Order Comment: Speci men Type: BLOOD SPECIMENOrdering Facility: [facility] Address: [address] [place], [place] [address] Performed By: #### 1 9123-9, 2776-10, 41388-5 ####[facility] LABCLIA [id number] [place] [id number] [place] Anion gap [Moles/Vol] 12 mmol/L Normal 9-18 [facility] Comment on above: Order Comment: Speci men Type: BLOOD SPECIMENOrdering Facility: [facility] Address: [address] Performed By: #### 1 9123-9, 2776-10, ####[facility] LABCLIA [id number] [place] [address] [place] AST [Catalytic activity/Vol] 120 U/L High 13-35 [facility] Comment on above: Order Comment: Speci men Type: BLOOD SPECIMENOrdering Facility: [facility] Address: [address] [place], [place] [address] Performed By: #### 1 9123-9, 2776-10, ####[facility] LABCLIA [id number] [place] [address] [place] Bilirubin [Mass/Vol] 1.0 mg/dL Normal 0.2-1.3 [facility] Comment on above: Order Comment: Speci men Type: BLOOD SPECIMENOrdering Facility: [facility] Address: [address] [place], [place] [address] Performed By: #### 1 9123-9, 2776-10, ####[facility] LABCLIA [id number] [place] [address] [place] Calcium [Mass/Vol] 9.0 mg/dL Normal 8.5-10.[address] [facility] Comment on above: Order Comment: Speci men Type: BLOOD SPECIMENOrdering Facility: [facility] Address: [address] [place], [place] [address] Performed By: #### 1 9123-9, 2776-10, 26472-4 ####[facility] LABCLIA [id number] [place] [address] [place] Chloride [Moles/Vol] 102 mmol/L Normal 97-105 [facility] Comment on above: Order Comment: Speci men Type: BLOOD SPECIMENOrdering Facility: [facility] Address: [address] [address] Performed By: #### 1 9123-9, 2777, ####[facility] LABCLIA [id number] [place] [address] [place] CO2 [Moles/Vol] 25 mmol/L Normal 22-30 [facility] Comment on above: Order Comment: Speci men Type: BLOOD SPECIMENOrdering Facility: [facility] Address: [address] [place] [address] Performed By: #### 1 9123-9, 27704-08, ####[facility] LABIA [id number] [address] [place] Creatinine [Mass/Vol] 0.65 mg/dL Normal 0.58-0.96 [facility] Comment on above: Order Comment: Speci men Type: BLOOD SPECIMENOrdering Facility: [facility] Address: [address] [place] [address] Performed By: #### 1 9123-9, 2776-10, ####[facility] LABIA [id number] [address] [place] ESTIMATED GLOMERULAR FILTRATION RATE 103 mL/min/1.73m??? Normal >=60 [facility] Comment on above: Order Comment: Speci men Type: BLOOD SPECIMENOrdering Facility: [facility] Address: [address] [place] [address] Result Comment: Karen mated Glomerular Filtration Rate (eGFR) is calculated using the 2020 CKD-EPI creatinine equation. This equation utilizes serum creatinine, sex, and age as parameters. The creatinine assay has traceable calibration to isotope dilution-mass spectrometry. Refer to KDIGO guidelines for clinical interpretation. In patients with unstable renal function, e.g. those with acute kidney injury, the eGFR may not accurately reflect actual GFR. Performed By: #### 1 9123-9, 2777, ####[facility] LABIA [id number] [place] [address] [place] Glucose [Mass/Vol] 123 mg/dL High 74-[address] [facility] Comment on above: Order Comment: Speci men Type: BLOOD SPECIMENOrdering Facility: [facility] Address: [address] [place] [address] Result Comment: The [place] Diabetes Association (ADA) provides guidance for cutoff values for fasting glucose and random glucose. The ADA defines fasting as no caloric intake for at least 8 hours. Fasting plasma glucose results between 100 to 125 mg/dL indicate increased risk for diabetes (prediabetes).Fasting plasma glucose results greater than or equal to 126 mg/dL meet the criteria for diagnosis of diabetes. In the absence of unequivocal hyperglycemia, results should be confirmed by repeat testing. In a patient with classic symptoms of hyperglycemia or hyperglycemic crisis, random plasma glucose results greater than or equal to 200 mg/dL meet the criteria for diagnosis of diabetes.Reference: Standards of Medical Care in Diabetes 2016, [place] Diabetes Association. Diabetes Care. 2016.39(Suppl 1). Performed By: #### 1 9123-9, 2777-1, 24005-5 ####[facility] LABIA [id number] [place] [address] [place] Potassium [Moles/Vol] 3.9 mmol/L Normal 3.7-5.1 [facility] Comment on above: Order Comment: Speci men Type: BLOOD SPECIMENOrdering Facility: [facility] Address: [address] [place], [place] [address] Performed By: #### 1 9123-9, 2777-1, 01566-7 ####[facility] LABIA [id number] [place] [id number] [place] Protein [Mass/Vol] 6.3 g/dL Normal 6.3-8.[address] [facility] Comment on above: Order Comment: Speci men Type: BLOOD SPECIMENOrdering Facility: [facility] Address: [address] [place] [address] Performed By: #### 1 9123-9, 2777-, 99599-6 ####[facility] LABCLIA [id number] [place] [address] [place] Sodium [Moles/Vol] 139 mmol/L Normal 136-[address] [facility] Comment on above: Order Comment: Speci men Type: BLOOD SPECIMENOrdering Facility: [facility] Address: [address] [place] [address] Performed By: #### 1 9123-9, 27704-08, ####[facility] LABCLIA [id number] [place] [address] [place] Urea nitrogen [Mass/Vol] 4 mg/dL Low 7-21 [facility] Comment on above: Order Comment: Speci men Type: BLOOD SPECIMENOrdering Facility: [facility] Address: [address] [place] [address] Performed By: #### 1 9123-9, 27704-08, ####[facility] LABCLIA [id number] [place] [address] [place] HEP DELTA ABon 11-15-2022 HEP DELTA AB Negative Normal Negative [facility] Comment on above: Order Comment: Speci men Type: BLOOD SPECIMENOrdering Facility: [facility] Address: [address] [place] [address] Result Comment: No a ntibody to Hepatitis Delta agent was detected. Order anti-HDVtesting only when Hepatitis B virus infection has been confirmed.INTERPRETIVE INFORMATION: Hepatitis Delta AbThis test was developed and its performance characteristicsdetermined by [facility]. It has not been cleared orapproved by the [place] Food and Drug Administration. This test wasperformed in a CLIA certified laboratory and is intended forclinical purposes.Performed by [facility],[address] [place] [id number] hep.[employer], Kyle Ledesma MD, PHD, Lab. Director Performed By: #### A HD, HEPIGM ####[facility] [employer] SoftwareIA [id number] [place] [address] HEPATITIS E ANTIBODY IGMon 0 11-15-2022 HEPATITIS E AB, IGM Negative Normal Negative [facility] Comment on above: Order Comment: Matti bernal Type: BLOOD SPECIMENOrdering Facility: [facility] Address: [address] [place] [address] Result Comment: INTE RPRETIVE INFORMATION: Hepatitis E Virus Ab, IgM by ELISAThis test was developed and its performance characteristicsdetermined by [facility]. It has not been cleared orapproved by the [place] Food and Drug Administration. This test wasperformed in a CLIA certified laboratory and is intended forclinical purposes.Performed by [facility],[address] [place] [address] mkf.[employer], Kyle Ledesma MD, PHD, Lab. Director Performed By: #### A HD, HEPIGM ####[facility] [employer] [id number] [place] [id number] LKM ABon 11-15-2022 LIVER-KIDNEY MICROSOMAL ABS <1:20 Normal <1:20 [facility] Comment on above: Order Comment: Matti bernal Type: BLOOD SPECIMENOrdering Facility: [facility] Address: [address] [place] [address] Result Comment: INTE RPRETIVE INFORMATION: Nwbkz-Vqeymo-Yzfvtycqp Abs, IgGLiver-Kidney Microsome IgG antibody (anti-LKM), as detected byindirect immunofluorescent antibody (IFA) techniques, may beobserved in patients with autoimmune hepatitis type 2 (AIH-2),AIH-2 associated with hswxxwrmyrenzzqfpbidotkgiojt-ymbgqnzsocy-vgmifdzqpr dystrophy (APECED),viral hepatitis C or D, and some forms of drug-induced hepatitis.This IFA does not differentiate among the four types of LKMantibodies (LKM-1, LKM-2, LKM-3, and a fourth type that hbyaerwixkIFR9B5 and CY antigens). Of these, anti-LKM-1 (rhrcojhghgV298IRX0) IgG antibodies are considered specific for AIH-2.This test was developed and its performance characteristicsdetermined by [facility]. It has not been cleared orapproved by the [place] Food and Drug Administration. This test wasperformed in a CLIA certified laboratory and is intended forclinical purposes.Performed By: [facility] [place], [place] [address]Iynsavbbmb Director: Kyle Ledesma MD, PhD Performed By: #### V CONCHITA, BRANDI ####[facility] [id number] [place] [address] MRI 3D POST PROCESSINGon MRI 3D POST PROCESSING Normal [facility] MRI PANC/JANAY WO/W IVCONon MRI PANC/JANAY WO/W IVCON Normal [facility] Magnesium SerPl-mCncon 11-15 Magnesium [Mass/Vol] 2.1 mg/dL Normal 1.7-2.3 [facility] Comment on above: Order Comment: Speci men Type: BLOOD SPECIMENOrdering Facility: [facility] Address: [address] [place] [address] Performed By: #### 2 4323-8, 10552-6, 2777-1 ####[facility] [id number] [address] [place] Magnesium [Mass/Vol] 1.3 mg/dL Low 1.7-2.3 [facility] Comment on above: Order Comment: Speci men Type: BLOOD SPECIMENOrdering Facility: [facility] Address: [address] [place] [address] Performed By: #### 1 9123-9, 2777-1, 21590-9 ####[facility] [id number] [place] [address] [place] Mitochondria Ab IF Ql (S)on 11-15-2022 Mitochondria M2 Ab IA Qn (S) 2.0 Units Normal <=20.0 [facility] Comment on above: Order Comment: Speci men Type: BLOOD SPECIMENOrdering Facility: [facility] Address: [address] [place] [address] Performed By: #### 1 7284-1, 39434-4 ####[facility] LABCLIA [id number] [place] [address] [place] Mitochondria M2 Ab Ql (S) Negative Normal Negative [facility] Comment on above: Order Comment: Speci men Type: BLOOD SPECIMENOrdering Facility: [facility] Address: [address] [address] Result Comment: Anti -mitochondrial antibody test is used as an aid in diagnosis of primary biliary cholangitis. Clinical correlation is required. Performed By: #### 1 7284-1, 80963-0 ####[facility] LABCLIA [id number] [place] [address] [place] PT EDon 11-15-2022 PT ED Normal [facility] Phosphate SerPl-mCncon 11-15 Phosphate [Mass/Vol] 2.0 mg/dL Low 2.7-4.8 [facility] Comment on above: Order Comment: Speci men Type: BLOOD SPECIMENOrdering Facility: [facility] Address: [address] [place] [address] Performed By: #### 2 4323-8, 38470-7, 2777-1 ####[facility] LABCLIA [id number] [place] [address] [place] Phosphate [Mass/Vol] 1.5 mg/dL Low 2.7-4.8 [facility] Comment on above: Order Comment: Speci men Type: BLOOD SPECIMENOrdering Facility: [facility] Address: [address] [address] Performed By: #### 1 9123-9, 2777-1, 50731-8 ####[facility] LABCLIA [id number] [place] [address] [place] Smooth muscle Ab Ql (S)on ACTIN SMOOTH MUSCLE IGG QUALITATIVE Negative Normal Negative [facility] Comment on above: Order Comment: Speci men Type: BLOOD SPECIMENOrdering Facility: [facility] Address: [address] [address] Performed By: #### 1 7284-1, 62253-5 ####[facility] LABCLIA [id number] [place] [address] [place] ACTIN SMOOTH MUSCLE IGG QUANTITATIVE 15 Units Normal <20 [facility] Comment on above: Order Comment: Speci men Type: BLOOD SPECIMENOrdering Facility: [facility] Address: [address] [place] [address] Performed By: #### 1 7284-1, 48161-5 ####[facility] LABCLIA [id number] [place] [address] [place] US ABD LIVER VASCULARon 02-0 US ABD LIVER VASCULAR Normal [facility] US DOPPLER COMPLETEon 2022 US DOPPLER COMPLETE Normal [facility] VARICELLA ZOSTER IGMon 11-15 VARICELLA ZOSTER, IGM 0.09 ISR Normal <=0.90 [facility] Comment on above: Order Comment: Speci dolores Type: BLOOD SPECIMENOrdering Facility: [facility] Address: [address] [place] [address] Result Comment: INTE RPRETIVE INFORMATION: Varicella-Zoster Virus Antibody, IgM 0.90 ISR or less ........ Negative - No significant level of detectable varicella-zoster virus IgM antibody. 0.91-1.09 ISR ........... Equivocal - Repeat testing in 10-14 days may be helpful. 1.10 ISR or greater ..... Positive - Significant level of detectable varicella-zoster virus IgM antibody. Indicative of current or recent infection. However, low levels of IgM antibodies may occasionally persist for more than 12 months post-infection or immunization.Performed By: [facility] [place] [id number] Director: Kyle Ledesma MD, PhD Performed By: #### V BRANDI ARANGO ####[facility] [employer] [id number] [place] [address] ALLIED HEALTHon 11-14-2022 ALLIED HEALTH Normal [facility] APAP SerPl-mCncon 11-14-2022 Acetaminophen [Mass/Vol] ug/mL Low 10-30 [facility] Comment on above: Order Comment: Matti bernal Type: BLOOD SPECIMENOrdering Facility: [facility] Address: [address] [address] Result Comment: Toxi c > 150 ug/mL 4 hours post ingestionThe Rashmi Hernadez nomogram can be used to estimate the probability of hepatotoxicity via the relationship of plasma acetaminophen concentration to the post ingestion interval. (Hector. Pediatrics. 1975. 55:871 to 876 and Rashmi et al. Arch Microwave Supervisor Med. 1981. 141:380 to 385).Reference ranges and high/low indicator flags are provided as general guidelines only. The treating physician must determine appropriate target levels/dosing based on the specific clinical situation. Performed By: #### 3 298-7 ####[facility] LABIA [id number] [place] [address] [place] C diff Tox gens Stl Ql SHAKA+p robeon 11-14-2022 C. difficile toxin genes SHAKA+probe Ql (Stl) Negative Normal Negative for C. difficile toxin by PCR [facility] Comment on above: Order Comment: Matti bernal Type: STOOL SPECIMENOrdering Facility: [facility] Address: [address] [place] [address] Performed By: #### 5 4067-4 ####[facility] [id number] [place] [address] [place] CASE MGT INIT ASSESon 2022 CASE MGT INIT ASSES Normal [facility] CMV DNA DETECTION AND QUANTo n 11-14-2022 CMV DNA SHAKA+probe Qn (P) Not detected Normal Not Detected [facility] Comment on above: Order Comment: Matti bernal Type: BLOOD SPECIMENOrdering Facility: [facility] Address: [address] [address] Performed By: #### C MVQNT ####[facility] LABCLIA [id number] [place] [address] [place] CNPNon 11-14-2022 CNPN Normal [facility] CONSULTon 11-14-2022 CONSULT Normal [facility] CONSULT Normal [facility] Calprotectin Stl-mCnton 02-0 Calprotectin (Stl) [Mass/Mass] 127.9 mg/kg High 0-50 [facility] Comment on above: Order Comment: Speci men Type: STOOL SPECIMENOrdering Facility: [facility] Address: [address] [place] [address] Result Comment: INTE RPRETIVE INFORMATION:Calprotectin, Fecal<50.0 mg/kg : Azwvkq59.0-120.0 mg/kg: Borderline. Test should be re-evaluated in 4-6 wks.>120.0 mg/kg: Abnormal Performed By: #### 3 8445-3 ####[facility] LABCLIA [id number] [place] [address] [place] JORGE LUIS HERNANDEZ PANELon 023 EBV NA AB, QUAL Negative Normal Negative [facility] Comment on above: Order Comment: Speci men Type: BLOOD SPECIMENOrdering Facility: [facility] Address: [address] [place] [address] Performed By: #### E BVPNL ####[facility] LABCLIA [id number] [place] [address] [place] EBV VCA IGG, QUAL Positive Abnormal Negative [facility] Comment on above: Order Comment: Speci men Type: BLOOD SPECIMENOrdering Facility: [facility] Address: [address] [place] [address] Performed By: #### E BVPNL ####[facility] LABCLIA [id number] [place] [address] [place] EBV VCA IGM, QUAL Negative Normal Negative [facility] Comment on above: Order Comment: Speci men Type: BLOOD SPECIMENOrdering Facility: [facility] Address: [address] [place] [address] Performed By: #### E BVPNL ####[facility] LABCLIA [id number] [place] [address] [place] INTERPRETATION (EBVPNL) Normal [facility] Comment on above: Order Comment: Speci men Type: BLOOD SPECIMENOrdering Facility: [facility] Address: [address] [place] [address] Performed By: #### E BVPNL ####[facility] LABCLIA [id number] [address] [place] HAV IgM Ser Qlon 11-14-2022 HAV IgM Ql (S) Negative Normal Negative [facility] Comment on above: Order Comment: Speci men Type: BLOOD SPECIMENOrdering Facility: [facility] Address: [address] [place] [address] Result Comment: No e vidence of recent infection with Hepatitis A virus. Performed By: #### 2 2314-9, 5195-3, 21848-0 ####[facility] LABCLIA [id number] [address] [place] HBV core IgM Ser Qlon 2022 HBV core IgM Ql (S) Negative Normal Negative [facility] Comment on above: Order Comment: Speci [facility] Type: BLOOD SPECIMENOrdering Facility: [facility] Address: [address] [place] [address] Result Comment: No e vidence of recent infection with Hepatitis B virus. Should recent infection be suspected, repeat testing may be considered 3-4 weeks after this draw. Performed By: #### 2 2314-9, 5195-3, 44873-8 ####[facility] LABCLIA [id number] [address] [place] HBV surface Ag Ser Qlon 02-0 6-2023 HBV surface Ag Ql (S) Negative Normal Negative [facility] Comment on above: Order Comment: Speci men Type: BLOOD SPECIMENOrdering Facility: [facility] Address: [address] [place] [address] Performed By: #### 2 2314-9, 5195-3, 63382-1 ####[facility] LABIA [id number] [address] [place] HCG Preg Ur Qlon 11-14-2022 HCG ( test) Ql (U) Negative Normal Negative [facility] Comment on above: Order Comment: Speci men Type: URINE SPECIMENOrdering Facility: [facility] Address: [address] [place] [address] Result Comment: This test is intended to aid in the early detection of . Very dilute urine samples, as indicated by a low specific gravity, may not contain client support representative levels of hCG. This test detects intact hCG only. This test does not reliably detect hCG degradation products, including free-beta subunit and beta-core fragment. Therefore, this test may show reduced reactivity in urine after 8 weeks gestation. A number of conditions other than , including trophoblastic disease and certain non-trophoblastic neoplasms cause elevated levels of hCG. As with any assay employing mouse antibodies, the possibility exists for interference by human anti-mouse antibodies (HAMA) in the specimen. The test provides a presumptive diagnosis for . Performed By: #### 2 106-3 ####[facility] LABIA [id number] [address] [place] HCV RNA SerPl SHAKA+probe-aCnc on 11-14-2022 HCV RNA SHAKA+probe Qn Not detected Normal HCV RNA not detected by PCR. [facility] Comment on above: Order Comment: Speci men Type: BLOOD SPECIMENOrdering Facility: [facility] Address: [address] [place] [address] Performed By: #### 1 1011-4 ####[facility] LABIA [id number] [address] [place] NURSING PROGon 11-14-2022 NURSING PROG Normal [facility] NUTRITIONon 11-14-2022 NUTRITION Normal [facility] XR COLON SINGLE CONTRASTon 0 11-14-2022 XR COLON SINGLE CONTRAST Normal [facility] CBC W Auto Differential pane l (Bld)on 11-13-2022 Basophils (Bld) [#/Vol] 0.07 10*3/uL Normal <0.11 [facility] Comment on above: Order Comment: Speci men Type: BLOOD SPECIMENOrdering Facility: [facility] Address: [address] [address] Performed By: #### 5 7021-8 ####[facility] LABCLIA [id number] [address] [place] Basophils/100 WBC (Bld) 1.2 % Normal [facility] Comment on above: Order Comment: Speci men Type: BLOOD SPECIMENOrdering Facility: [facility] Address: [address] [place] [address] Performed By: #### 5 7021-8 ####[facility] LABCLIA [id number] [place] [address] [place] Differential cell count method Nom (Bld) Auto Normal [facility] Comment on above: Order Comment: Speci men Type: BLOOD SPECIMENOrdering Facility: [facility] Address: [address] Performed By: #### 5 7021-8 ####[facility] LABCLIA [id number] [place] [address] [place] Eosinophils (Bld) [#/Vol] 0.42 10*3/uL Normal <0.46 [facility] Comment on above: Order Comment: Speci men Type: BLOOD SPECIMENOrdering Facility: [facility] Address: [address] Performed By: #### 5 7021-8 ####[facility] LABCLIA [id number] [place] [address] [place] Eosinophils/100 WBC (Bld) 7.1 % Normal [facility] Comment on above: Order Comment: Speci men Type: BLOOD SPECIMENOrdering Facility: [facility] Address: [address] [place] [address] Performed By: #### 5 7021-8 ####[facility] LABCLIA [id number] [place] [address] [place] Erythrocyte distribution width (RBC) [Ratio] 17.6 % High 11.5-15.0 [facility] Comment on above: Order Comment: Speci men Type: BLOOD SPECIMENOrdering Facility: [facility] Address: [address] [place] [address] Performed By: #### 5 7021-8 ####[facility]CLIA [id number] [place] [address] [place] Hematocrit (Bld) [Volume fraction] 36.0 % Normal 36.0-46.0 [facility] Comment on above: Order Comment: Speci men Type: BLOOD SPECIMENOrdering Facility: [facility] Address: [address] [place] [address] Performed By: #### 5 7021-8 ####[facility] LABIA [id number] [place] [address] [place] Hemoglobin (Bld) [Mass/Vol] 11.3 g/dL Low 11.5-15.5 [facility] Comment on above: Order Comment: Speci men Type: BLOOD SPECIMENOrdering Facility: [facility] Address: [address] [place], [place] [address] Performed By: #### 5 7021-8 ####[facility]CLIA [id number] [place] [address] [place] Immature granulocytes (Bld) [#/Vol] 10*3/uL Normal <0.10 [facility] Comment on above: Order Comment: Speci men Type: BLOOD SPECIMENOrdering Facility: [facility] Address: [address] Performed By: #### 5 7021-8 ####[facility] LABCLIA [id number] [address] Immature granulocytes/100 WBC (Bld) 0.2 % Normal [facility] Comment on above: Order Comment: Speci men Type: BLOOD SPECIMENOrdering Facility: [facility] Address: [address] Performed By: #### 5 7021-8 ####[facility] LABCLIA [id number] [place] [address] [place] Lymphocytes (Bld) [#/Vol] 1.78 10*3/uL Normal 1.00-4.00 [facility] Comment on above: Order Comment: Speci men Type: BLOOD SPECIMENOrdering Facility: [facility] Address: [address] Performed By: #### 5 7021-8 ####[facility] LABCLIA [id number] [address] STATES [facility] Lymphocytes/100 WBC (Bld) 30.0 % Normal [facility] Comment on above: Order Comment: Speci men Type: BLOOD SPECIMENOrdering Facility: [facility] Address: [address] Performed By: #### 5 7021-8 ####[facility] LABCLIA [id number] [place] [address] [place] MCH (RBC) [Entitic mass] 28.3 pg Normal 26.0-34.0 [facility] Comment on above: Order Comment: Speci men Type: BLOOD SPECIMENOrdering Facility: [facility] Address: [address] Performed By: #### 5 7021-8 ####[facility] LABCLIA [id number] [place] [address] [place] MCHC (RBC) [Mass/Vol] 31.4 g/dL Normal 30.5-36.0 [facility] Comment on above: Order Comment: Speci men Type: BLOOD SPECIMENOrdering Facility: [facility] Address: [address] [place] [address] Performed By: #### 5 7021-8 ####[facility] LABIA [id number] [place] [address] [place] MCV (RBC) [Entitic vol] 90.0 fL Normal 80.0-100.0 [facility] Comment on above: Order Comment: Speci men Type: BLOOD SPECIMENOrdering Facility: [facility] Address: [address] [place] [address] Performed By: #### 5 7021-8 ####[facility] LABIA [id number] [place] [address] [place] Monocytes (Bld) [#/Vol] 0.57 10*3/uL Normal <0.87 [facility] Comment on above: Order Comment: Speci men Type: BLOOD SPECIMENOrdering Facility: [facility] Address: [address] [place], [place] [address] Performed By: #### 5 7021-8 ####[facility] LABIA [id number] [address] [place] Monocytes/100 WBC (Bld) 9.6 % Normal [facility] Comment on above: Order Comment: Speci men Type: BLOOD SPECIMENOrdering Facility: [facility] Address: [address] [place], [place] [address] Performed By: #### 5 7021-8 ####[facility] LABCLIA [id number] [place] [address] [place] Neutrophils (Bld) [#/Vol] 3.08 10*3/uL Normal 1.45-7.50 [facility] Comment on above: Order Comment: Speci men Type: BLOOD SPECIMENOrdering Facility: [facility] Address: [address] Performed By: #### 5 7021-8 ####[facility] LABCLIA [id number] [place] [address] [place] Neutrophils/100 WBC (Bld) 51.9 % Normal [facility] Comment on above: Order Comment: Speci men Type: BLOOD SPECIMENOrdering Facility: [facility] Address: [address] Performed By: #### 5 7021-8 ####[facility] LABCLIA [id number] [place] [address] [place] Nucleated RBC (Bld) [#/Vol] 10*3/uL Normal <0.01 [facility] Comment on above: Order Comment: Speci men Type: BLOOD SPECIMENOrdering Facility: [facility] Address: [address] Performed By: #### 5 7021-8 ####[facility] LABIA [id number] [place] [address] [place] Nucleated RBC/100 WBC (Bld) [Ratio] 0.0 /100 WBC Normal [facility] Comment on above: Order Comment: Speci men Type: BLOOD SPECIMENOrdering Facility: [facility] Address: [address] Performed By: #### 5 7021-8 ####[facility] LABIA [id number] [place] [address] [place] Platelet mean volume (Bld) [Entitic vol] 10.4 fL Normal 9.0-12.7 [facility] Comment on above: Order Comment: Speci men Type: BLOOD SPECIMENOrdering Facility: [facility] Address: [address] Performed By: #### 5 7021-8 ####[facility] LABIA [id number] [place] [address] [place] Platelets (Bld) [#/Vol] 235 10*3/uL Normal 150-400 [facility] Comment on above: Order Comment: Speci men Type: BLOOD SPECIMENOrdering Facility: [facility] Address: [address] [place] [address] Performed By: #### 5 7021-8 ####[facility] [id number] [place] [address] [place] RBC (Bld) [#/Vol] 4.00 10*6/uL Normal 3.90-5.20 [facility] Comment on above: Order Comment: Speci men Type: BLOOD SPECIMENOrdering Facility: [facility] Address: [address] [place] [address] Performed By: #### 5 7021-8 ####[facility] [id number] [place] [address] [place] WBC (Bld) [#/Vol] 5.93 10*3/uL Normal 3.70-11.00 [facility] Comment on above: Order Comment: Speci men Type: BLOOD SPECIMENOrdering Facility: [facility] Address: [address] [place] [address] Performed By: #### 5 7021-8 ####[facility] [id number] [place] [address] [place] COVID-19, Rapidon 11-13-2022 SARS-CoV-2 (COVID-19) RdRp gene SHAKA+probe Ql (Resp) Not detected Not Detected [facility] Comment on above: Rapid NAAT: The specimen is NEGATIVE for SARS-CoV-2, the novel coronavirus associated with COVID-19. The ID NOW COVID-19 assay is designed to detect the virus that causes COVID-19 in patients with signs and symptoms of infection who are suspected of COVID-19. An individual without symptoms of COVID-19 and who is not shedding SARS-CoV-2 virus would expect to have a negative (not detected) result in this assay. Negative results should be treated as presumptive and, if inconsistent with clinical signs and symptoms or necessary for patient management, should be tested with an alternative molecular assay. Negative results do not preclude SARS-CoV-2 infection and should not be used as the sole basis for patient management decisions. Fact sheet for Healthcare Providers: https://www.fda.gov/media/691800/download Fact sheet for Patients: https://www.fda.gov/media/222223/download Methodology: Isothermal Nucleic Acid Amplification Specimen Description .NASOPHARYNGEAL SWAB [facility] CRP SerPl-mCncon 11-13-2022 CRP [Mass/Vol] 0.3 mg/dL Normal <0.9 [facility] Comment on above: Order Comment: Specmegan bernal Type: BLOOD SPECIMENOrdering Facility: [facility] Address: [address] [place] [address] Performed By: #### 2 4323-8, 05164-8, 2276-4, 4-4, 2324-2, 85586-3, 1988-02 ####[facility] LABIA [id number] [address] [place] ABDOMEN PELVIS W IV CONTR Jose C 11-13-2022 CT ABDOMEN PELVIS W IV CONTRAST Normal [facility] Ceruloplasmin SerPl-mCncon 0 11-13-2022 Ceruloplasmin [Mass/Vol] 18 mg/dL Normal 16-45 [facility] Comment on above: Order Comment: Specmegan bernal Type: BLOOD SPECIMENOrdering Facility: [facility] Address: [address] [place] [address] Performed By: #### 2 4323-8, 49437-0, 2276-4, 2064-4, 2324-2, 70810-8, 1988-02 ####[facility] LABCLIA [id number] [place] [id number] [place] Comprehensive metabolic 2000 panelon 11-13-2022 Albumin [Mass/Vol] 3.7 g/dL Low 3.9-4.[address] [facility] Comment on above: Order Comment: Speci men Type: BLOOD SPECIMENOrdering Facility: [facility] Address: [address] [place], [place] [address] Performed By: #### 2 4323-8, 64269-4, 6-4, 4-4, 2324-2, 68501-4, 1988-02 ####[facility] LABCLIA [id number] [place] [id number] [place] ALP [Catalytic activity/Vol] 325 U/L High 34-123 [facility] Comment on above: Order Comment: Speci men Type: BLOOD SPECIMENOrdering Facility: [facility] Address: [address] [place], [place] [address] Performed By: #### 2 4323-8, 96212-2, 6-4, 4-4, 2324-2, 97666-6, 1988-02 ####[facility] LABCLIA [id number] [place] [id number] [place] ALT [Catalytic activity/Vol] 379 U/L High 7-38 [facility] Comment on above: Order Comment: Speci men Type: BLOOD SPECIMENOrdering Facility: [facility] Address: [address] [place], [place] [address] Performed By: #### 2 4323-8, 34563-1, 6-4, 4-4, 2324-2, 16801-8, 1988-02 ####[facility] LABIA [id number] [place] [id number] [place] Anion gap [Moles/Vol] 14 mmol/L Normal 9-18 [facility] Comment on above: Order Comment: Speci men Type: BLOOD SPECIMENOrdering Facility: [facility] Address: [address] [place], [place] [address] Performed By: #### 2 4323-8, 05935-4, 6-4, 2063-4, 2323-2, 37375-7, 1988-02 ####[facility] LABCLIA [id number] [address] [address] [place] AST [Catalytic activity/Vol] 359 U/L High 13-35 [facility] Comment on above: Order Comment: Speci men Type: BLOOD SPECIMENOrdering Facility: [facility] Address: [address] [place] [address] Performed By: #### 2 4323-8, 31255-1, 2275-4, 2063-4, 2323-2, 34492-7, 1988-02 ####[facility] LABCLIA [id number] [address] [address] [place] Bilirubin [Mass/Vol] 2.1 mg/dL High 0.2-1.3 [facility] Comment on above: Order Comment: Speci men Type: BLOOD SPECIMENOrdering Facility: [facility] Address: [address] [place] [address] Performed By: #### 2 3-8, 79545-3, 2275-4, 2063-4, 2323-2, 41996-6, 1988-02 ####[facility] LABCLIA [id number] [address] [address] [place] Calcium [Mass/Vol] 9.3 mg/dL Normal 8.5-10.[address] [facility] Comment on above: Order Comment: Speci men Type: BLOOD SPECIMENOrdering Facility: [facility] Address: [address] [place] Performed By: #### 2 4323-8, 84673-2, 6-4, 2063-4, 4-2, 71347-8, 1988-02 ####[facility] LABCLIA [id number] [address] [address] [place] Chloride [Moles/Vol] 108 mmol/L High 97-105 [facility] Comment on above: Order Comment: Speci men Type: BLOOD SPECIMENOrdering Facility: [facility] Address: [address] [place], [place] [address] Performed By: #### 2 4323-8, 90898-9, 6-4, 4-4, 4-2, 34918-7, 1988-02 ####[facility] LABCLIA [id number] [place] [id number] [place] CO2 [Moles/Vol] 20 mmol/L Low 22-30 [facility] Comment on above: Order Comment: Speci men Type: BLOOD SPECIMENOrdering Facility: [facility] Address: [address] [place], [place] [address] Performed By: #### 2 4323-8, 64917-9, 6-4, 2063-4, 2323-2, 56630-8, 1988-02 ####[facility] LABIA [id number] [place] [id number] [place] Creatinine [Mass/Vol] 0.82 mg/dL Normal 0.58-0.96 [facility] Comment on above: Order Comment: Speci men Type: BLOOD SPECIMENOrdering Facility: [facility] Address: [address] [place], [place] [address] Performed By: #### 2 4323-8, 01960-9, 2275-4, 2063-4, 2323-2, 19055-0, 1988-02 ####[facility] LABIA [id number] [place] [id number] [place] ESTIMATED GLOMERULAR FILTRATION RATE 84 mL/min/1.73m??? Normal >=60 [facility] Comment on above: Order Comment: Speci men Type: BLOOD SPECIMENOrdering Facility: [facility] Address: [address] [place] [address] Result Comment: Karen mated Glomerular Filtration Rate (eGFR) is calculated using the 2020 CKD-EPI creatinine equation. This equation utilizes serum creatinine, sex, and age as parameters. The creatinine assay has traceable calibration to isotope dilution-mass spectrometry. Refer to KDIGO guidelines for clinical interpretation. In patients with unstable renal function, e.g. those with acute kidney injury, the eGFR may not accurately reflect actual GFR. Performed By: #### 2 4323-8, 64184-9, 6-4, 4-4, 2324-2, 84474-5, 1988-02 ####[facility] LABCLIA [id number] [address] [address] [place] Glucose [Mass/Vol] 62 mg/dL Low 74-[address] [facility] Comment on above: Order Comment: Matti bernal Type: BLOOD SPECIMENOrdering Facility: [facility] Address: [address] [place] [address] Result Comment: The [place] Diabetes Association (ADA) provides guidance for cutoff values for fasting glucose and random glucose. The ADA defines fasting as no caloric intake for at least 8 hours. Fasting plasma glucose results between 100 to 125 mg/dL indicate increased risk for diabetes (prediabetes).Fasting plasma glucose results greater than or equal to 126 mg/dL meet the criteria for diagnosis of diabetes. In the absence of unequivocal hyperglycemia, results should be confirmed by repeat testing. In a patient with classic symptoms of hyperglycemia or hyperglycemic crisis, random plasma glucose results greater than or equal to 200 mg/dL meet the criteria for diagnosis of diabetes.Reference: Standards of Medical Care in Diabetes 2016, [place] [employer] Association. Diabetes Care. 2016.39(Suppl 1). Performed By: #### 2 4323-8, 38670-7, 6-4, 4-4, 2324-2, 66544-6, 1988-02 ####[facility] LABIA [id number] [place] [id number] [place] Potassium [Moles/Vol] 4.4 mmol/L Normal 3.7-5.1 [facility] Comment on above: Order Comment: aMtti men Type: BLOOD SPECIMENOrdering Facility: [facility] Address: [address] [place], [place] Performed By: #### 2 4323-8, 74231-2, 6-4, 2063-4, 2323-2, 44014-3, 1988-02 ####[facility] LABCLIA [id number] [address] [place] Protein [Mass/Vol] 6.5 g/dL Normal 6.3-8.[address] [facility] Comment on above: Order Comment: Speci men Type: BLOOD SPECIMENOrdering Facility: [facility] Address: [address] [facility] [place] Performed By: #### 2 4323-8, 28601-0, 2275-4, 2063-4, 2323-2, 34938-3, 1988-02 ####[facility] LABCLIA [id number] [address] [place] Sodium [Moles/Vol] 142 mmol/L Normal 136-[address] [facility] Comment on above: Order Comment: Speci men Type: BLOOD SPECIMENOrdering Facility: [facility] Address: [address] [place] [address] Performed By: #### 2 4323-8, 12480-9, 2275-4, 2063-4, 2323-2, 76256-3, 1988-02 ####[facility] LABCLIA [id number] [address] [place] Urea nitrogen [Mass/Vol] 7 mg/dL Normal 7-21 [facility] Comment on above: Order Comment: Speci men Type: BLOOD SPECIMENOrdering Facility: [facility] Address: [address] [place] [address] Performed By: #### 2 4323-8, 08934-7, 2275-4, 2063-4, 2323-2, 35217-0, 1988-02 ####[facility] LABCLIA [id number] [address] [place] ECG COMPLETEon 11-13-2022 ECG COMPLETE Normal [facility] EKG 12 LeadOrdered By: Hernando Allen hmad on 11-13-2022 Atrial Rate 97 BPM [employer] Work Phone: P [place] 64 degrees [employer] Work Phone: P-R Interval 116 ms [employer] Work Phone: Q-T Interval 348 ms [employer] Work Phone: QRS Duration 80 ms [employer] Work Phone: QTc Calculation (Bazett) 441 ms [employer] Work Phone: R [place] 76 degrees [employer] Work Phone: T [place] 63 degrees [employer] Work Phone: Ventricular Rate 97 BPM [employer] Work Phone: [employer] Work Phone: EKG 12 Leadon 11-13-2022 Poor data qualit y, interpretation may be adversely affected Normal sinus rhythm Normal ECG No previous ECGs available Confirmed by Hernando Rollins MD ([id number]) on 11/13/2022 11:58:36 AM [facility] RADIOLOGY Hernando Rollins MD - 11/13/2022 Poor data quality, interpretation may be adversely affected Normal sinus rhythm Normal ECG No previous ECGs available Confirmed by Hernando Rollins MD ([id number]) on 11/13/2022 11:58:36 AM [employer] Work Phone: Ferritin SerPl-mCncon 2022 Ferritin [Mass/Vol] 2619.0 ng/mL High 14.7-205.1 [facility] Comment on above: Order Comment: Speci men Type: BLOOD SPECIMENOrdering Facility: [facility] Address: [address] [place] [address] [place] [address] Performed By: #### 2 4323-8, 26962-8, 6-4, 2063-4, 4-2, 38452-6, 1988-02 ####[facility] LABCLIA [id number] [place] [id number] [place] Flu A/B Ag Detectionon 11-13 Flu A Ag Detection Negative Normal NEG [facility] Comment on above: Result Comment: for Influenza A Antigen Performed By: #### F SUSAN ####[facility] [place] [address] Lab Director: Samuel Ayers MD Flu B Ag Detection Negative Normal NEG [facility] Comment on above: Result Comment: for Influenza B Antigen. Performed By: #### F SUSAN ####[facility] [place] [address] Lab Director: Samuel yAers MD GGT SerPl-cCncon 11-13-2022 Gamma glutamyl transferase [Catalytic activity/Vol] 142 U/L High 6-46 [facility] Comment on above: Order Comment: Speci men Type: BLOOD SPECIMENOrdering Facility: [facility] Address: [address] [place] [address] Performed By: #### 2 4323-8, 21366-1, 2275-4, 2063-4, 2323-2, 74068-3, 1988-02 ####[facility] LABIA [id number] [place] [id number] [place] HISTORY PHYSICALon HISTORY PHYSICAL Normal [facility] Iron and Iron binding capaci ty panelon 11-13-2022 Iron [Mass/Vol] 129 ug/dL Normal 41-186 [facility] Comment on above: Order Comment: Speci men Type: BLOOD SPECIMENOrdering Facility: [facility] Address: [address] [place] [id number] Performed By: #### 2 4323-8, 87027-8, 2275-4, 2064-4, 2324-2, 03977-6, 1988-02 ####[facility] LABCLIA [id number] [place] [address] [place] Iron binding capacity [Mass/Vol] 260 ug/dL Normal 232-386 [facility] Comment on above: Order Comment: Speci men Type: BLOOD SPECIMENOrdering Facility: [facility] Address: [address] [place], [place] [address] Performed By: #### 2 4323-8, 87409-4, 4, 2064-01, 2, 36526-3, 1988-02 ####[facility] LABCLIA [id number] [place] [address] [place] Iron/TIBC [Molar ratio] 49.6 % Normal 15.0-57.0 [facility] Comment on above: Order Comment: Speci men Type: BLOOD SPECIMENOrdering Facility: [facility] Address: [address] Performed By: #### 2 4323-8, 15810-8, 2276-01, 2064-01, 2323-11, 64722-0, 1988-02 ####[facility] LABCLIA [id number] [place] [address] [place] bilirubin panel [Ma ss/Vol]on 11-13-2022 Bilirubin [Mass/Vol] 2.2 mg/dL High 0.2-1.3 [facility] Comment on above: Order Comment: Speci men Type: BLOOD SPECIMENOrdering Facility: [facility] Address: [address] [place] [address] Performed By: #### 2 4323-8, 06776-7, 2275-4, 2064-01, 2323-2, 00191-7, 1988-02 ####[facility] LABCLIA [id number] [place] [address] [place] Bilirubin.conjugated [Mass/Vol] 1.3 mg/dL High <0.2 [facility] Comment on above: Order Comment: Matti bernal Type: BLOOD SPECIMENOrdering Facility: [facility] Address: [address] [place] [address] Performed By: #### 2 4323-8, 73867-5, 6-4, 4-4, 4-2, 21032-7, 1988-02 ####[facility] LABCLIA [id number] [place] [address] [place] Bilirubin.indirect [Mass/Vol] 0.9 mg/dL Normal <1.4 [facility] Comment on above: Order Comment: Matti bernal Type: BLOOD SPECIMENOrdering Facility: [facility] Address: [address] [place] [address] Performed By: #### 2 4323-8, 60524-4, 6-4, 2063-4, 2323-2, 31212-9, 1988-02 ####[facility] LABCLIA [id number] [place] [address] [place] PT panel Coag (PPP)on 2022 INR Coag (PPP) [Relative time] 1.0 {INR} Normal 0.9-1.3 [facility] Comment on above: Order Comment: Matti bernal Type: BLOOD SPECIMENOrdering Facility: [facility] Address: [address] [place] [address] Result Comment: Sandra min K Antagonist (VKA) Therapeutic Range: INR 2 to 3 (Target INR of 2.5)Note: For patients treated with VKA drugs, such as warfarin, the [place] [employer] 2012 Guideline recommends a therapeutic INR range of 2 to 3 (target INR of 2.5). This recommendation includes high-risk patients with antiphospholipid syndrome with previous arterial or venous thromboembolism, current-generation mechanical or bioprosthetic aortic heart valve replacement.Note: Patients with mechanical aortic valve replacement and additional risk factors for thromboembolic events (atrial fibrillation, previous thromboembolism, LV dysfunction, hypercoagulable conditions) or an older generation mechanical AVR (i.e., ball in-Cage) or any mechanical MVR should have a INR therapeutic range of 2.5 to 3.5 (target INR of 3).Linda GH, et al. Chest 2012, 141:7S-47SNishimura RA, et al. [facility] 2017, 70: 252-289 Performed By: #### 3 4528-0, 69342-9 ####[facility] LABCLIA [id number] [place] [address] [place] PT Coag (PPP) [Time] 10.3 s Normal 9.7-13.0 [facility] Comment on above: Order Comment: Speci men Type: BLOOD SPECIMENOrdering Facility: [facility] Address: [address] [place] [id number] Performed By: #### 3 4528-0, 39398-1 ####[facility] LABCLIA [id number] [address] [place] Rapid influenza A/B antigens on 11-13-2022 FLUAV Ag Ql (Unsp spec) Negative NEGATIVE [facility] Comment on above: for Influenza A Anti gen FLUBV Ag Ql (Unsp spec) Negative NEGATIVE [facility] Comment on above: for Influenza B Anti gen. [facility] [id number] 11-13-2022 SARS-CoV-2 (COVID-19) RNA SHAKA+probe Ql (Unsp spec) Not detected Normal [facility] Comment on above: Result Comment: Rapi d NAAT: The specimen is NEGATIVE for SARS-CoV-2, the novel coronavirus associated with COVID-19.The ID NOW COVID-19 assay is designed to detect the virus that causes COVID-19 in patients with signs and symptoms of infection who are suspected of COVID-19.An individual without symptoms of COVID-19 and who is not shedding SARS-CoV-2 virus would expect to have a negative (not detected) result in this assay.Negative results should be treated as presumptive and, if inconsistent with clinical signs and symptoms or necessary for patient management,should be tested with an alternative molecular assay. Negative results do not preclude SARS-CoV-2 infection andshould not be used as the sole basis for patient management decisions.Fact sheet for Healthcare Providers: https://www.fda.gov/media/413013/downloadFact sheet for Patients: https://www.fda.gov/media/269834/downloadMethodology: Isothermal Nucleic Acid Amplification Performed By: #### C OVRB ####[address] [place] [address] lab Director: Samuel Ayers MD SARS-CoV-2 RNA Resp Ql SHAKA+p robeon 11-13-2022 SARS-CoV-2 (COVID-19) RNA SHAKA+probe Ql (Resp) COVID 19 RESULT: Not detected The method used is RT-PCR or an equivalent NAAT method. Reference Range(the expected result in uninfected individuals): Not detected Normal [facility] Comment on above: Performed By: #### 9 4500-6 ####[facility] LABCLIA [id number] [address] [place] TYPE + SCREENon 11-13-2022 ABO A Normal [facility] Comment on above: Order Comment: Speci men Type: BLOOD SPECIMENOrdering Facility: [facility] Address: [address] [place] [address] Performed By: #### T SCR ####[facility] BLOOD BANKIA [id number] [address] [place] HISTORICAL AB SCR STATUS Negative Normal [facility] Comment on above: Order Comment: Speci men Type: BLOOD SPECIMENOrdering Facility: [facility] Address: [address] [place] [address] Performed By: #### T SCR ####[facility] BLOOD BANKIA [id number] [address] [place] Rh Nom (Bld) Positive Normal [facility] Comment on above: Order Comment: Speci men Type: BLOOD SPECIMENOrdering Facility: [facility] Address: [address] [place], [place] [id number] Performed By: #### T SCR ####[facility] BLOOD BANKCLIA [id number] [address] [place] TYPE AND SCREEN EXPIRATION 11/16/2022 23:59 Normal [facility] Comment on above: Order Comment: Speci men Type: BLOOD SPECIMENOrdering Facility: [facility] Address: [address] [place] [address] Performed By: #### T SCR ####[facility] BLOOD BANKCLIA [id number] [address] [place] aPTT PPPon 11-13-2022 aPTT Coag (PPP) [Time] 23.1 s Normal 23.0-32.4 [facility] Comment on above: Order Comment: Speci men Type: BLOOD SPECIMENOrdering Facility: [facility] Address: [address] [place] [address] Performed By: #### 3 4528-0, 53826-9 ####[facility] LABCLIA [id number] [address] C-Reactive Proteinon 023 CRP [Mass/Vol] mg/L Normal 0.0-5.0 [facility] Comment on above: Performed By: #### T LENA GENTILE, CRP ####[facility] [place] [address] [place] [address] [facility] Director: Samuel Ayers MD CRP High sensitivity method [Mass/Vol] mg/L 0.0 - 5.0 mg/L [facility] CBC with Auto Differentialon 11-12-2022 Absolute Eos # 0.67 High [facility] Absolute Immature Granulocyte 0.03 [facility] Absolute Lymph # 2.57 [facility] Absolute Graham # 0.92 [facility] Basophils (Bld) [#/Vol] 0.10 10*3/uL [facility] Basophils/100 WBC (Bld) 1 % 0 - 2 % [facility] Eosinophils/100 WBC (Bld) 5 % High 1 - 4 % [facility] Hematocrit (Bld) [Volume fraction] 43.4 % 36.3 - 47.1 % [facility] Hemoglobin (Bld) [Mass/Vol] 13.2 g/dL 11.9 - 15.1 g/dL [facility] Immature granulocytes/100 WBC (Bld) 0 % 0 [facility] Interpretation and review of laboratory results Abnormal [facility] Lymphocytes/100 WBC (Bld) 20 % Low 24 - 43 % [facility] MCH (RBC) [Entitic mass] 28.3 pg 25.2 - 33.5 pg [facility] MCHC (RBC) [Mass/Vol] 30.4 g/dL 28.4 - 34.8 g/dL [facility] MCV (RBC) [Entitic vol] 93.1 fL 82.6 - 102.9 fL [facility] Monocytes/100 WBC (Bld) 7 % 3 - 12 % [facility] NRBC Automated 0.0 0.0 per 100 WBC [facility] Platelet distribution width (Bld) [Ratio] 17.6 % High 11.8 - 14.4 % [facility] Platelet mean volume (Bld) [Entitic vol] 10.0 fL 8.1 - 13.5 fL [facility] Platelets (Bld) [#/Vol] 364 10*3/uL [facility] RBC (Bld) [#/Vol] 4.66 10*6/uL 3.95 - 5.11 m/uL [facility] Segmented neutrophils/100 WBC (Bld) 67 % High 36 - 65 % [facility] Segs Absolute 8.87 High [facility] WBC (Bld) [#/Vol] 13.2 10*3/uL High [facility] CBC with Diffon 11-12-2022 Abs. Basophil 0.10 k/uL Normal 0.00-0.20 [facility] Comment on above: Performed By: #### C P, CDP, LIP ####[address] [place] [address] Lab Director: Samuel Ayers MD Abs.Imm.Granulocyte 0.03 k/uL Normal 0.00-0.30 [facility] Comment on above: Performed By: #### C P, CDP, LIP ####[address] , [place] [address])[phone] Director: Samuel Ayers MD Abs.Neutrophil (Seg) 8.87 k/uL High 1.50-8.10 [facility] Comment on above: Performed By: #### C P, CDP, LIP ####[address] [place], [place] [address])[phone] Director: Samuel Ayers MD Basophils/100 WBC (Bld) 1 % Normal 0-2 [facility] Comment on above: Performed By: #### C P, CDP, LIP ####[address] , [place] [address])[phone] Director: Samuel Ayers MD Eosinophils (Bld) [#/Vol] 0.67 10*3/uL High 0.00-0.44 [facility] Comment on above: Performed By: #### C P, CDP, LIP ####[address] , [place] [address])[phone] Director: Samuel Ayers MD Eosinophils/100 WBC (Bld) 5 % High 1-4 [facility] Comment on above: Performed By: #### C P, CDP, LIP ####[address] [place], [place] [address])[phone] Director: Samuel Ayers MD Erythrocyte distribution width (RBC) [Ratio] 17.6 % High 11.8-14.4 [facility] Comment on above: Performed By: #### C P, CDP, LIP ####[address] , [place] [address] Lab Director: Samuel Ayers MD Hematocrit (Bld) [Volume fraction] 43.4 % Normal 36.3-47.1 [facility] Comment on above: Performed By: #### C P, CDP, LIP ####[address] , [place] [address] Lab Director: Samuel Ayers MD Hemoglobin (Bld) [Mass/Vol] 13.2 g/dL Normal 11.9-15.1 [facility] Comment on above: Performed By: #### C P, CDP, LIP ####[address] [place] [address] Lab Director: Samuel Ayers MD Immature granulocytes/100 WBC (Bld) 0 % Normal 0 [facility] Comment on above: Performed By: #### C P, CDP, LIP ####[address] , [facility]83 Lab Director: Samuel Ayers MD Lymphocytes (Bld) [#/Vol] 2.57 10*3/uL Normal 1.10-3.70 [facility] Comment on above: Performed By: #### C P, CDP, LIP ####[address] , [facility]83 Lab Director: Samuel Ayers MD Lymphocytes/100 WBC (Bld) 20 % Low 24-43 [facility] Comment on above: Performed By: #### C P, CDP, LIP ####[address] , [place] [address] Lab Director: Samuel Ayers MD MCH (RBC) [Entitic mass] 28.3 pg Normal 25.2-33.5 [facility] Comment on above: Performed By: #### C P, CDP, LIP ####[address] , [facility]83 Lab Director: Samuel Ayers MD MCHC (RBC) [Mass/Vol] 30.4 g/dL Normal 28.4-34.8 [facility] Comment on above: Performed By: #### C P, CDP, LIP ####[address] , [place] [id number] Lab Director: Samuel Ayers MD MCV (RBC) [Entitic vol] 93.1 fL Normal 82.6-102.9 [facility] Comment on above: Performed By: #### C P, CDP, LIP ####[address] , [place] [address] Lab Director: Samuel Ayers MD Monocytes (Bld) [#/Vol] 0.92 10*3/uL Normal 0.10-1.20 [facility] Comment on above: Performed By: #### C P, CDP, LIP ####[address] [place] [address] Lab Director: Samuel Ayers MD Monocytes/100 WBC (Bld) 7 % Normal 3-12 [facility] Comment on above: Performed By: #### C P, CDP, LIP ####[address] [place] [address] Lab Director: Samuel Ayers MD Neutrophil (Seg) 67 % High 36-65 [facility] Comment on above: Performed By: #### C P, CDP, LIP ####[address] [place] [address] Lab Director: Samuel Ayers MD NRBC Automated 0.0 per [address] [facility] Comment on above: Performed By: #### C P, CDP, LIP ####[address] , [place] [address] Lab Director: Samuel Ayers MD Platelet mean volume (Bld) [Entitic vol] 10.0 fL Normal 8.1-13.5 [facility] Comment on above: Performed By: #### C P, CDP, LIP ####[address] , [place] [phone] Director: Samuel Ayers MD Platelets (Bld) [#/Vol] 364 10*3/uL Normal 138-453 [facility] Comment on above: Performed By: #### C P, CDP, LIP ####[address] , [place] [phone] Director: Samuel Ayers MD RBC (Bld) [#/Vol] 4.66 10*6/uL Normal 3.95-5.11 [facility] Comment on above: Performed By: #### C P, CDP, LIP ####[address] [place] [address] Lab Director: Samuel Ayers MD WBC (Bld) [#/Vol] 13.2 10*3/uL High 3.5-11.3 [facility] Comment on above: Performed By: #### C P, CDP, LIP ####[address] , [place] [phone] Director: Samuel Ayers MD CT ABDOMEN PELVIS W IV CONTR AST Additional Contrast? Noneon 11-12-2022 1. Dilated fluid-tami led colon with possible transition point in the descending colon. Findings are similar to prior study in 2020. Recurrent colitis or ileus versus large bowel obstruction are considerations. Findings could be related to history of Crohn's disease. There may be chronic mucosal thickening of the terminal ileum. Consider direct visualization to exclude mucosal abnormality in the descending colon. No free air or pneumatosis. 2. Biliary ductal dilatation is increased from exam in 2019. Findings are most likely related to prior cholecystectomy, however correlate with laboratory values, MRCP if clinical concern for acute biliary pathology. 3. Otherwise no acute findings. [facility] RIS CONSOLIDATED EXAMINATION: CT OF THE ABDOMEN AND PELVIS WITH CONTRAST 11/12/2022 8:11 pm TECHNIQUE: CT of the abdomen and pelvis was performed with the administration of intravenous contrast. Multiplanar reformatted images are provided for review. Automated exposure control, iterative reconstruction, and/or weight based adjustment of the mA/kV was utilized to reduce the radiation dose to as low as reasonably achievable. COMPARISON: None. HISTORY: ORDERING SYSTEM PROVIDED HISTORY: H/O Crohn's and multiple SBO. Now with LLQ abd pain. TECHNOLOGIST PROVIDED HISTORY: H/O Crohn's and multiple SBO. Now with LLQ abd pain. Decision Support Exception - unselect if not a suspected or confirmed emergency medical condition->Emergency Medical Condition (MA) FINDINGS: Lower Chest: No focal consolidation at the lung bases. The heart is not enlarged. No pericardial effusion. Organs: Liver: Normal appearance of the liver. Gallbladder: Biliary ductal dilitation in keeping with prior cholecystectomy. Spleen: Unremarkable spleen. Pancreas: No peripancreatic inflammatory changes. Adrenal Glands: No focal adrenal abnormalities identified. Kidneys: No hydronephrosis. GI/Bowel: Stomach: The stomach is nondistended. Small bowel: No evidence of small bowel obstruction. Some fluid-filled loops of small bowel without evidence of small-bowel obstruction. Perhaps chronic thickening of the terminal ileum on page 89 of series 2, similar to prior study. Colon: The colon is moderately distended with fluid. This is most significant in the right colon and transverse colon. There is possible transition point in the left colon on page 107 of series 2. The rectosigmoid colon is relatively decompressed compared to the remainder of the colon. Obstruction or mucosal abnormality in the large bowel is difficult to exclude. No free air or pneumatosis. Appendix: The appendix may be air-filled within the cecum or retrocecal on pages 97 through 101 of series 2. No localized inflammatory changes in this location. Pelvis: This cecum extends into the pelvis. No free fluid in the pelvis. Incomplete distension of the urinary bladder. Peritoneum/Retroperitoneum : Normal caliber abdominal aorta. No retroperitoneal lymphadenopathy by CT criteria. Bones/Soft Tissues: No acute findings within the subcutaneous soft tissues. Spondylosis of the visualized spine. PN RIS CONSOLIDATED Flakita Arce D O - 11/12/2022 EXAMINATION: CT OF THE ABDOMEN AND PELVIS WITH CONTRAST 11/12/2022 8:11 pm TECHNIQUE: CT of the abdomen and pelvis was performed with the administration of intravenous contrast. Multiplanar reformatted images are provided for review. Automated exposure control, iterative reconstruction, and/or weight based adjustment of the mA/kV was utilized to reduce the radiation dose to as low as reasonably achievable. COMPARISON: None. HISTORY: ORDERING SYSTEM PROVIDED HISTORY: H/O Crohn's and multiple SBO. Now with LLQ abd pain. TECHNOLOGIST PROVIDED HISTORY: H/O Crohn's and multiple SBO. Now with LLQ abd pain. Decision Support Exception - unselect if not a suspected or confirmed emergency medical condition->Emergency Medical Condition (MA) FINDINGS: Lower Chest: No focal consolidation at the lung bases. The heart is not enlarged. No pericardial effusion. Organs: Liver: Normal appearance of the liver. Gallbladder: Biliary ductal dilitation in keeping with prior cholecystectomy. Spleen: Unremarkable spleen. Pancreas: No peripancreatic inflammatory changes. Adrenal Glands: No focal adrenal abnormalities identified. Kidneys: No hydronephrosis. GI/Bowel: Stomach: The stomach is nondistended. Small bowel: No evidence of small bowel obstruction. Some fluid-filled loops of small bowel without evidence of small-bowel obstruction. Perhaps chronic thickening of the terminal ileum on page 89 of series 2, similar to prior study. Colon: The colon is moderately distended with fluid. This is most significant in the right colon and transverse colon. There is possible transition point in the left colon on page 107 of series 2. The rectosigmoid colon is relatively decompressed compared to the remainder of the colon. Obstruction or mucosal abnormality in the large bowel is difficult to exclude. No free air or pneumatosis. Appendix: The appendix may be air-filled within the cecum or retrocecal on pages 97 through 101 of series 2. No localized inflammatory changes in this location. Pelvis: This cecum extends into the pelvis. No free fluid in the pelvis. Incomplete distension of the urinary bladder. Peritoneum/Retroperitoneum : Normal caliber abdominal aorta. No retroperitoneal lymphadenopathy by CT criteria. Bones/Soft Tissues: No acute findings within the subcutaneous soft tissues. Spondylosis of the visualized spine. IMPRESSION: 1. Dilated fluid-filled colon with possible transition point in the descending colon. Findings are similar to prior study in 2020. Recurrent colitis or ileus versus large bowel obstruction are considerations. Findings could be related to history of Crohn's disease. There may be chronic mucosal thickening of the terminal ileum. Consider direct visualization to exclude mucosal abnormality in the descending colon. No free air or pneumatosis. 2. Biliary ductal dilatation is increased from exam in 2020. Findings are most likely related to prior cholecystectomy, however correlate with laboratory values, MRCP if clinical concern for acute biliary pathology. 3. Otherwise no acute findings. [facility] [employer] Work Phone: Radiology Study observation (narrative) [facility] Phone: CT ABDOMEN PELVIS W IV CONTR AST Additional Contrast? NoneOrdered By: Flakita Arce on 11-12-2022 [facility] Work Phone: Comp Metabolic Profon 2022 Albumin [Mass/Vol] 4.4 g/dL Normal 3.5-5.2 [facility] Comment on above: Performed By: #### C P, CDP, LIP ####[address] [place], [place] [id number] [facility] Director: Samuel Ayers MD Albumin/Glob Ratio 1.2 Normal 1.0-2.5 [facility] Comment on above: Performed By: #### C P, CDP, LIP ####[address] [place] [address] Lab Director: Samuel Ayers MD Alkaline Phos 202 U/L High 35-104 [facility] Comment on above: Performed By: #### C P, CDP, LIP ####[address] [place] [address] lab Director: Samuel Ayers MD ALT [Catalytic activity/Vol] 156 U/L High 5-33 [facility] Comment on above: Performed By: #### C P, CDP, LIP ####[address] , [place] [id number] lab Director: Samuel Ayers MD Anion gap [Moles/Vol] 14 mmol/L Normal 9-17 [facility] Comment on above: Performed By: #### C P, CDP, LIP ####[address] , [place] [id number] Lab Director: Samuel Ayers MD AST [Catalytic activity/Vol] 352 U/L High <32 [facility] Comment on above: Performed By: #### C P, CDP, LIP ####[address] , [place] [address] Lab Director: Samuel Ayers MD Bilirubin [Mass/Vol] 0.8 mg/dL Normal 0.3-1.2 [facility] Comment on above: Performed By: #### C P, CDP, LIP ####[address] , [place] [address] Lab Director: Samuel Ayers MD BUN/CRE Ratio 13 Normal 9-20 [facility] Comment on above: Performed By: #### C P, CDP, LIP ####[address] , [place] 90[address] Lab Director: Samuel Ayers MD Calcium [Mass/Vol] 10.4 mg/dL Normal 8.6-10.4 [facility] Comment on above: Performed By: #### C P, CDP, LIP ####[address] , [place] 7[address] Lab Director: Samuel Ayers MD Chloride [Moles/Vol] 104 mmol/L Normal 98-107 [facility] Comment on above: Performed By: #### C P, CDP, LIP ####[address] , [place] 0[address] Lab Director: Samuel Ayers MD CO2 [Moles/Vol] 23 mmol/L Normal 20-31 [facility] Comment on above: Performed By: #### C P, CDP, LIP ####[address] , [place] 77[address] Lab Director: Samuel Ayers MD Creatinine [Mass/Vol] 0.94 mg/dL High 0.50-0.90 [facility] Comment on above: Performed By: #### C P, CDP, LIP ####[address] [place] [address] lab Director: Samuel Ayers MD GFR/1.73 sq M.predicted among non-blacks MDRD (S/P/Bld) [Vol rate/Area] mL/min/{1.73_m2} Normal >60 [facility] Comment on above: Result Comment: Thes e results are not intended for use in patients <18 years of age.eGFR results are calculated without a race factor using the 2020 CKD-EPI equation.Careful clinical correlation is recommended, particularly when comparing to results calculated using previous equations.The CKD-EPI equation is less accurate in patients with extremes of muscle mass, extra-renal metabolism of creatine, excessive creatine ingestion, or following therapy that affects renal tubular secretion. Performed By: #### C P, CDP, LIP ####[address] , [place] 8[address] lab Director: Samuel Ayers MD Glucose [Mass/Vol] 93 mg/dL Normal 70-99 [facility] Comment on above: Performed By: #### C P, CDP, LIP ####[address] [place] [address] lab Director: Samuel Ayers MD Potassium [Moles/Vol] 4.0 mmol/L Normal 3.7-5.3 [facility] Comment on above: Performed By: #### C P, CDP, LIP ####[address] , [place] 26[address] lab Director: Samuel Ayers MD Protein [Mass/Vol] 8.2 g/dL Normal 6.4-8.3 [facility] Comment on above: Performed By: #### C P, CDP, LIP ####[address] , [place] [address] lab Director: Samuel Ayers MD Sodium [Moles/Vol] 141 mmol/L Normal 135-144 [facility] Comment on above: Performed By: #### C P, CDP, LIP ####[facility] [place] [address] lab Director: Samuel Ayers MD Urea nitrogen [Mass/Vol] 12 mg/dL Normal 6-20 [facility] Comment on above: Performed By: #### C P, CDP, LIP ####[facility] [place] [address] lab Director: Samuel Ayers MD Comprehensive Metabolic Pane [facility] 11-12-2022 Albumin [Mass/Vol] 4.4 g/dL 3.5 - 5.2 g/dL [facility] Albumin/Globulin [Mass ratio] 1.2 {ratio} 1.0 - 2.5 [facility] ALP [Catalytic activity/Vol] 202 U/L High 35 - 104 U/L [facility] ALT [Catalytic activity/Vol] 156 U/L High 5 - 33 U/L [facility] Anion gap [Moles/Vol] 14 mmol/L 9 - 17 mmol/L [facility] AST [Catalytic activity/Vol] 352 U/L High NINF - 32 U/L [facility] Bilirubin [Mass/Vol] 0.8 mg/dL 0.3 - 1 .2 mg/dL [facility] Calcium [Mass/Vol] 10.4 mg/dL 8.6 - 10. 4 mg/dL [facility] Chloride [Moles/Vol] 104 mmol/L 98 - 10 7 mmol/L [facility] CO2 [Moles/Vol] 23 mmol/L 20 - 31 mmol/L [facility] Creatinine [Mass/Vol] 0.94 mg/dL High 0.50 - 0.90 mg/dL [facility] GFR/1.73 sq M.predicted MDRD (S/P/Bld) [Vol rate/Area] - PINF [facility] Comment on above: These results are not intended for use in patients <18 years of age. eGFR results are calculated without a race factor using the 2020 CKD-EPI equation. Careful clinical correlation is recommended, particularly when comparing to results calculated using previous equations. The CKD-EPI equation is less accurate in patients with extremes of muscle mass, extra-renal metabolism of creatine, excessive creatine ingestion, or following therapy that affects renal tubular secretion. Glucose [Mass/Vol] 93 mg/dL 70 - 99 mg/dL [facility] Interpretation and review of laboratory results Abnormal [facility] Potassium [Moles/Vol] 4.0 mmol/L 3.7 - 5.3 mmol/L [facility] Protein [Mass/Vol] 8.2 g/dL 6.4 - 8.3 g/dL [facility] Sodium [Moles/Vol] 141 mmol/L 135 - 144 mmol/L [facility] Urea nitrogen [Mass/Vol] 12 mg/dL 6 - 20 mg/dL [facility] Urea nitrogen/Creatinine (Bld) [Mass ratio] 13 9 - 20 [facility] Lactic Acidon 11-12-2022 Lactate [Moles/Vol] 1.2 mmol/L Normal 0.5-2.2 [facility] Comment on above: Performed By: #### L ACTIC ####[facility] [place] [address] [place] [id number] [facility] Director: Samuel Ayers MD Lactate (P shoaib) [Moles/Vol] 1.2 mmol/L 0.5 - 2.2 mmol/L [facility] Lipaseon 11-12-2022 Lipase [Catalytic activity/Vol] 740 U/L Critically high 13-60 [facility] Comment on above: Performed By: #### C P, CDP, LIP ####[facility] [place] [id number] lab Director: Samuel Ayers MD Interpretation and review of laboratory results Abnormal [facility] Lipase [Catalytic activity/Vol] 740 U/L Critically high 13 - 60 U/L [facility] Sedimentation Rateon 023 Sedimentation Rate 33 mm/Hr High 0-30 [facility] Comment on above: Performed By: #### T LENA GENTILE, CRP ####[facility] [place] , [place] [id number] Lab Director: Samuel Ayers MD ESR (Bld) [Velocity] 33 mm/h High [facility] Interpretation and review of laboratory results Abnormal [facility] Troponinon 11-12-2022 Troponin, High Sens 6 ng/L Normal 0-14 [facility] Comment on above: Result Comment: High Sensitivity Troponin values cannot be compared with other Troponin methodologies. Performed By: #### T LENA GENTILE, CRP ####[address] , [place] [id number] Lab Director: Samuel Ayers MD Troponin I.cardiac DL <= 0.01 ng/mL [Mass/Vol] 6 ng/L 0 - 14 ng/L [facility] Comment on above: High Sensitivity Tro ponin values cannot be compared with other Troponin methodologies. [facility] Urinalysis w/ Microon 2022 Bilirubin, SemiQt,Ur Negative Normal NEG [facility] Comment on above: Performed By: #### U AMIC ####[address] , [place] [id number] Lab Director: Samuel Ayers MD Blood, Urine Negative Normal NEG [facility] [facility] Comment on above: Performed By: #### U AMIC ####[facility] [place] , [place] [id number] lab Director: Samuel Ayers MD Clarity (U) Clear Normal CLEAR [facility] Comment on above: Performed By: #### U AMIC ####[facility] [place] , [place] [id number] Lab Director: Samuel Ayers MD Color (U) Yellow Normal YEL [facility] Comment on above: Performed By: #### U AMIC ####[address] , [place] [id number] Lab Director: Samuel Ayers MD Epithelial cells LM Ql (Urine sed) None Normal 0-25 [facility] Comment on above: Performed By: #### U AMIC ####[address] , [place] [id number] Lab Director: Samuel Ayers MD Glucose Ql (U) Negative Normal NEG [facility] Comment on above: Performed By: #### U AMIC ####[address] , [place] [id number] lab Director: Samuel Ayers MD Ketones Ql (U) Negative Normal NEG [facility] Comment on above: Performed By: #### U AMIC ####[address] , [place] [id number] Lab Director: Samuel Ayers MD Leukocyte esterase Test strip Ql (U) Negative Normal NEG [facility] Comment on above: Performed By: #### U AMIC ####[address] , [place] [id number] lab Director: Samuel Ayers MD Nitrite,Ur Negative Normal NEG [facility] Comment on above: Performed By: #### U AMIC ####[address] , [place] [id number] Lab Director: Samuel Ayers MD PH,Ur 5.5 Normal 5.0-9.0 [facility] Comment on above: Performed By: #### U AMIC ####[address] , [place] [id number] lab Director: Samuel Ayers MD Protein Ql (U) Negative Normal NEG [facility] Comment on above: Performed By: #### U AMIC ####[address] , [place] [id number] Lab Director: Samuel Ayers MD Spec. [place],Ur 1.010 Normal 1.010-1.[address] [facility] Comment on above: Performed By: #### U AMIC ####[facility] [place] [address] Lab Director: Samuel Ayers MD Urine RBC's None Normal 0-2 [facility] Comment on above: Performed By: #### U AMIC ####[facility] [place] [address] Lab Director: Samuel Ayers MD Urine WBC's None Normal 0-5 [facility] Comment on above: Performed By: #### U AMIC ####[address] , [place] [id number] Lab Director: Samuel Ayers MD Urobilinogen,Ur Normal Normal NORM [facility] Comment on above: Performed By: #### U AMIC ####[address] , [place] [id number] Lab Director: Samuel Ayers MD Urinalysis with Microscopico n 11-12-2022 Bilirubin Urine Negative NEGATIVE [facility] Color, UA Yellow Yellow [facility] Epithelial Cells UA None [facility] Glucose Auto test strip (U) [Mass/Vol] Negative NEGATIVE [facility] Ketones (U) [Mass/Vol] Negative NEGATIVE [facility] Leukocyte esterase Auto test strip Ql (U) Negative NEGATIVE [facility] Nitrite Auto test strip Ql (U) Negative NEGATIVE [facility] Protein (U) [Mass/Vol] 5.5 mg/dL 5.0 - 9.0 [facility] Protein (U) [Mass/Vol] Negative NEGATIVE [facility] RBC clumps Auto (Urine sed) [#/Area] None [facility] Specific [place], UA 1.010 1.010 - 1.020 [facility] Turbidity UA Clear Clear [facility] Urine Hgb Negative NEGATIVE [facility] Urobilinogen, Urine Normal Normal [facility] WBC, UA None [facility] XR CHEST PORTABLEon 11-12-19 XR CHEST PORTABLE [facility] No acute cardiopulmo nary abnormality. Pulmonary hyperinflation and interstitial prominence. Correlate for COPD. [facility] EXAMINATION: ONE XRAY VIEW OF THE CHEST 11/12/2022 8:21 pm COMPARISON: August 04, 2009 HISTORY: ORDERING SYSTEM PROVIDED HISTORY: chest pain TECHNOLOGIST PROVIDED HISTORY: chest pain FINDINGS: The cardiomediastinal silhouette is not enlarged. No pleural effusion or pneumothorax. No focal consolidation. Pulmonary hyperinflation. [facility] Flakita Arce D O - 11/12/2022 EXAMINATION: ONE XRAY VIEW OF THE CHEST 11/12/2022 8:21 pm COMPARISON: August 04, 2009 HISTORY: ORDERING SYSTEM PROVIDED HISTORY: chest pain TECHNOLOGIST PROVIDED HISTORY: chest pain FINDINGS: The cardiomediastinal silhouette is not enlarged. No pleural effusion or pneumothorax. No focal consolidation. Pulmonary hyperinflation. IMPRESSION: No acute cardiopulmonary abnormality. Pulmonary hyperinflation and interstitial prominence. Correlate for COPD. [facility] Work Phone: [facility] Work Phone: Radiology Study observation (narrative) [facility] Work Phone: CNPNon 11-10-2022 CNPN Normal [facility] CNSWon 10-14-2022 CNSW Normal [facility] CNPNon 10-04-2022 CNPN Normal [facility]NPNon [facility] -- ELVIRA SYED ([id number]) 1965 F Date Time Provider Department 09/22/22 RICKY GARCES During your visit today, we recorded the following information about you: Weight Height 44.5 kg 1.473 m Ricky Garces APRN.MICHAEL 09/22/2022 10:00 AM Signed Call made to patient at this time to discuss recent lab results from OSH. Will scan results into system, below are the abnormal labs supporting the IV venofer beacon plan. Hgb 9.4 Iron: 47 TIBC 458 TSaturation: 10 Ferritin 26 Cr:1.06 BUN: 21 Assessment/Plan: Elvira Syed is a 57yo female who presented to anemia virtual clinic on 09/16 for evaluation of anemia. Complete anemia gillespie completed with CBC, CMP, iron studies, B12 and folate. Found to have underlying renal disease and iron deficiency. With hx of chrons disease, likely a decreased absorption issue. Does not tolerate PO iron Anemia of renal disease Other iron deficiency anemia Chrons disease -Venofer 200mg IV weekly x4 doses, beacon plan in place -Will have iron infusions at [place] location -repeat CBC, CMP, iron studies 7 weeks after last infusion, 12/15/2022 with a VV follow up 1-2 days later Discussed common infusion reaction and SE of IV iron. Patient amenable to above plan. [place]nut plan signed and sent to [place]. Patient to call with any questions or concerns. Ricky Garces APRN.MICHAEL September 22, 2022 9:56 AM Allergies As of Date: 09/22/2022 Noted Allergy Reaction CIPRO (CIPROFLOXACIN) 05/19/2010 Date Reviewed: 09/16/2022 Reviewed by: Ricky Garces APRN.MICHAEL - Fully Assessed Reason for Visit: Returning Patient's Call [[id number]] Visit Diagnoses:Anemia of renal disease [N18.9, D63.1] Other iron deficiency anemia [D50.8] Prescriptions as of 09/22/2022 - methotrexate 2.5 mg tablet Take 6 tablets by mouth every Monday. Take by mouth as instructed once each week. - ustekinumab (STELARA) 90 mg/mL injection Inject 1 syringe (90 mg) under the skin every 6 weeks - predniSONE (DELTASONE) 5 mg tablet Take 1 tablet by mouth twice daily. - predniSONE (DELTASONE) 10 mg tablet Take 2 tablets by mouth once daily. - DULoxetine (CYMBALTA) 30 mg capsule Take 30 mg by mouth once daily. - loperamide (IMODIUM) 2 mg cap(s) Take 2 mg by mouth as needed. - Lactobacillus acidophilus (PROBIOTIC ORAL) Take 14 Billion Particle Units by mouth twice daily. - ustekinumab (STELARA) 90 mg/mL injection Inject 1 mL subcutaneously every 8 weeks. - diphenoxylate-atropine (LOMOTIL) 2.5-0.025 mg per tablet TAKE ONE TABLET BY MOUTH FOUR TIMES A DAY - ustekinumab (STELARA) 130 mg/26 mL injection Inject 26 mL intravenously one time only for 1 dose. - acyclovir (ZOVIRAX) 400 mg tablet Take 400 mg by mouth three times daily as needed. - NIFEdipine ER (PROCARDIA XL) 30 mg 24 hr tablet Take 30 mg by mouth once daily. - cyanocobalamin (VITAMIN B-12) 1,000 mcg/mL soln Inject 1,000 mcg intramuscularly once every month. - busPIRone HCl 7.5 mg tablet Take 15 mg by mouth twice daily. - COMPOUNDED PRESCRIPTION Probiotic Digestive System Support - ALPRAZolam (XANAX) 0.25 mg ORAL tablet Take 0.25 mg by mouth as needed. - ZOLPIDEM 10 MG TAB Take 10 mg by mouth at bedtime as needed. - duloxetine hcl(CYMBALTA 60 MG CAP) Take 60 mg by mouth once daily. Meds Comments as of 07/22/2016: Pt states that medication is current. Problem List As Of Date 09/22/2022 Noted Resolved MYALGIA AND MYOSITIS NOS [OLG2248] 08/02/2004 OSTEOPOROSIS NOS [M81.0] 08/02/2004 Crohn's disease of small and large intestines (*01/19/2011 Small bowel obstruction (HCC) [K56.609] 04/22/2017 04/25/2017 Essential hypertension [I10] 06/26/2020 Anxiety [F41.9] 06/26/2020 Anemia [D64.9] 09/16/2022 Anemia of renal disease [N18.9, D63.1] 09/22/2022 Iron deficiency anemia [D50.9] 09/22/2022 Encounter Status:Closed by RICKY GARCES on 09/22/[address] [facility] B12/Folate Panelon Folic Acid >20.0 Normal >4.8 [facility] Comment on above: Performed By: #### B 12FOL, FERI, FEBC, CDP, CP #### [address] [address] Visitor Services Representative: Ganesh Moyer MD Cobalamin (Vitamin B12) [Mass/Vol] 508 pg/mL Normal 232-1245 [facility] Comment on above: Performed By: #### B 12FOL, FERI, FEBC, CDP, CP #### [facility] [employer] [address] [place] [phone] Visitor Services Representative: Ganesh Moyer MD CBC with Diffon 09-20-2022 Abs. Basophil 0.07 k/uL Normal 0.00-0.20 [facility] Comment on above: Performed By: #### B 12FOL, FERI, FEBC, CDP, CP #### [facility] [employer] [address] [place] [phone] Visitor Services Representative: Ganesh Moyer MD Abs.Imm.Granulocyte 0.06 k/uL Normal 0.00-0.30 [facility] Comment on above: Performed By: #### B 12FOL, FERI, FEBC, CDP, CP #### [facility] [employer] [address] [place] [phone] Visitor Services Representative: Ganesh Moyer MD Abs.Neutrophil (Seg) 3.89 k/uL Normal 1.50-8.10 [facility] Comment on above: Performed By: #### B 12FOL, FERI, FEBC, CDP, CP #### [facility] [employer] [address] [place] [phone] Visitor Services Representative: Ganesh Moyer MD Basophils/100 WBC (Bld) 1 % Normal 0-2 [facility] Comment on above: Performed By: #### B 12FOL, FERI, FEBC, CDP, CP #### [address] [address] Visitor Services Representative: Ganesh Moyer MD Eosinophils (Bld) [#/Vol] 0.19 10*3/uL Normal 0.00-0.44 [facility] Comment on above: Performed By: #### B 12FOL, FERI, FEBC, CDP, CP #### [address] [address] Visitor Services Representative: Ganesh Moyer MD Eosinophils/100 WBC (Bld) 3 % Normal 1-4 [facility] Comment on above: Performed By: #### B 12FOL, FERI, FEBC, CDP, CP #### [address] [address] Visitor Services Representative: Ganesh Moyer MD Erythrocyte distribution width (RBC) [Ratio] 16.6 % High 11.8-14.4 [facility] Comment on above: Performed By: #### B 12FOL, FERI, FEBC, CDP, CP #### [facility] [employer] [address] [place] [phone] Visitor Services Representative: Ganesh Moyer MD Hematocrit (Bld) [Volume fraction] 33.0 % Low 36.3-47.1 [facility] Comment on above: Performed By: #### B 12FOL, FERI, FEBC, CDP, CP #### [address] [address] Visitor Services Representative: Ganesh Moyer MD Hemoglobin (Bld) [Mass/Vol] 9.4 g/dL Low 11.9-15.1 [facility] Comment on above: Performed By: #### B 12FOL, FERI, FEBC, CDP, CP #### [facility] [employer] [address] [place] [phone] Visitor Services Representative: Ganesh Moyer MD Immature granulocytes/100 WBC (Bld) 1 % High 0 [facility] Comment on above: Performed By: #### B 12FOL, FERI, FEBC, CDP, CP #### [address] [address] Visitor Services Representative: Ganesh Moyer MD Lymphocytes (Bld) [#/Vol] 2.07 10*3/uL Normal 1.10-3.70 [facility] Comment on above: Performed By: #### B 12FOL, FERI, FEBC, CDP, CP #### [address] [address] Visitor Services Representative: Ganesh Moyer MD Lymphocytes/100 WBC (Bld) 30 % Normal 24-43 [facility] Comment on above: Performed By: #### B 12FOL, FERI, FEBC, CDP, CP #### [address] [address] Visitor Services Representative: Ganesh Moyer MD MCH (RBC) [Entitic mass] 26.0 pg Normal 25.2-33.5 [facility] Comment on above: Performed By: #### B 12FOL, FERI, FEBC, CDP, CP #### [address] [address] Visitor Services Representative: Ganesh Moyer MD MCHC (RBC) [Mass/Vol] 28.5 g/dL Normal 28.4-34.8 [facility] Comment on above: Performed By: #### B 12FOL, FERI, FEBC, CDP, CP #### [address] [address] Visitor Services Representative: Ganesh Moyer MD MCV (RBC) [Entitic vol] 91.2 fL Normal 82.6-102.9 [facility] Comment on above: Performed By: #### B 12FOL, FERI, FEBC, CDP, CP #### [address] [address] Visitor Services Representative: Ganesh Moyer MD Monocytes (Bld) [#/Vol] 0.59 10*3/uL Normal 0.10-1.20 [facility] Comment on above: Performed By: #### B 12FOL, FERI, FEBC, CDP, CP #### [address] [address] Visitor Services Representative: Ganesh Moyer MD Monocytes/100 WBC (Bld) 9 % Normal 3-12 [facility] Comment on above: Performed By: #### B 12FOL, FERI, FEBC, CDP, CP #### [address] [address] Visitor Services Representative: Ganesh Moyer MD Neutrophil (Seg) 56 % Normal 36-65 [facility] Comment on above: Performed By: #### B 12FOL, FERI, FEBC, CDP, CP #### [address] [address] Visitor Services Representative: Ganesh Moyer MD NRBC Automated 0.0 per 100 WBC Normal 0.0 [facility] Comment on above: Performed By: #### B 12FOL, FERI, FEBC, CDP, CP #### [address] [address] Visitor Services Representative: Ganesh Moyer MD Platelet mean volume (Bld) [Entitic vol] 10.2 fL Normal 8.1-13.5 [facility] Comment on above: Performed By: #### B 12FOL, FERI, FEBC, CDP, CP #### [address] [address] Visitor Services Representative: Ganesh Moyer MD Platelets (Bld) [#/Vol] 442 10*3/uL Normal 138-453 [facility] Comment on above: Performed By: #### B 12FOL, FERI, FEBC, CDP, CP #### [address] [address] Visitor Services Representative: Ganesh Moyer MD RBC (Bld) [#/Vol] 3.62 10*6/uL Low 3.95-5.11 [facility] Comment on above: Performed By: #### B 12FOL, FERI, FEBC, CDP, CP #### [facility] [employer] [address] [place] [phone] Visitor Services Representative: Ganesh Moyer MD RBC morphology finding Nom (Bld) ANISOCYTOSIS PRESENT Normal [facility] Comment on above: Performed By: #### B 12FOL, FERI, FEBC, CDP, CP #### [address] [address] Visitor Services Representative: Ganesh Moyer MD WBC (Bld) [#/Vol] 6.9 10*3/uL Normal 3.5-11.3 [facility] Comment on above: Performed By: #### B 12FOL, FERI, FEBC, CDP, CP #### [address] [address] Visitor Services Representative: Ganesh Moyer MD Comp Metabolic Profon 2021 Albumin [Mass/Vol] 4.0 g/dL Normal 3.5-5.2 [facility] Comment on above: Performed By: #### B 12FOL, FERI, FEBC, CDP, CP #### [address] [address] Visitor Services Representative: Ganesh Moyer MD Albumin/Glob Ratio 1.3 Normal 1.0-2.5 [facility] Comment on above: Performed By: #### B 12FOL, FERI, FEBC, CDP, CP #### [address] [address] Visitor Services Representative: Ganesh Moyer MD Alkaline Phos 78 U/L Normal 35-104 [facility] Comment on above: Performed By: #### B 12FOL, FERI, FEBC, CDP, CP #### [address] [address] Visitor Services Representative: Ganesh Moyer MD ALT [Catalytic activity/Vol] 28 U/L Normal 5-33 [facility] Comment on above: Performed By: #### B 12FOL, FERI, FEBC, CDP, CP #### [address] [address] Visitor Services Representative: Ganesh Moyer MD Anion gap [Moles/Vol] 14 mmol/L Normal 9-17 [facility] Comment on above: Performed By: #### B 12FOL, FERI, FEBC, CDP, CP #### [address] [address] Visitor Services Representative: Ganesh Moyer MD AST [Catalytic activity/Vol] 32 U/L High <32 [facility] Comment on above: Performed By: #### B 12FOL, FERI, FEBC, CDP, CP #### [address] [address] Visitor Services Representative: Ganesh Moyer MD Bilirubin [Mass/Vol] 0.3 mg/dL Normal 0.3-1.2 [facility] Comment on above: Performed By: #### B 12FOL, FERI, FEBC, CDP, CP #### [address] [address] Visitor Services Representative: Ganesh Moyer MD Calcium [Mass/Vol] 9.4 mg/dL Normal 8.6-10.4 [facility] Comment on above: Performed By: #### B 12FOL, FERI, FEBC, CDP, CP #### [facility] [place] [address] Visitor Services Representative: Ganesh Moyer MD Chloride [Moles/Vol] 111 mmol/L High 98-107 [facility] Comment on above: Performed By: #### B 12FOL, FERI, FEBC, CDP, CP #### [facility] [place] [address] Visitor Services Representative: Ganesh Moyer MD CO2 [Moles/Vol] 16 mmol/L Low 20-31 [facility] Comment on above: Performed By: #### B 12FOL, FERI, FEBC, CDP, CP #### [facility] [address] [place] [phone] Visitor Services Representative: Ganesh Moyer MD Creatinine [Mass/Vol] 1.06 mg/dL High 0.50-0.90 [facility] Comment on above: Performed By: #### B 12FOL, FERI, FEBC, CDP, CP #### [facility] [address] [place] [phone] Visitor Services Representative: Ganesh Moyer MD GFR/1.73 sq M.predicted among non-blacks MDRD (S/P/Bld) [Vol rate/Area] mL/min/{1.73_m2} Normal >60 [facility] Comment on above: Result Comment: Effective Jul 11, 2022 These results are not intended for use in patients <18 years of age. eGFR results are calculated without a race factor using the 2020 CKD-EPI equation. Careful clinical correlation is recommended, particularly when comparing to results calculated using previous equations. The CKD-EPI equation is less accurate in patients with extremes of muscle mass, extra-renal metabolism of creatine, excessive creatine ingestion, or following therapy that affects renal tubular secretion. Performed By: #### B 12FOL, FERI, FEBC, CDP, CP #### [facility] [place], [place] [id number] Visitor Services Representative: Ganesh Moyer MD Glucose [Mass/Vol] 86 mg/dL Normal 70-99 [facility] Comment on above: Performed By: #### B 12FOL, FERI, FEBC, CDP, CP #### [facility] [address] [place] [address] Visitor Services Representative: Ganesh Moyer MD Potassium [Moles/Vol] 4.9 mmol/L Normal 3.7-5.3 [facility] Comment on above: Performed By: #### B 12FOL, FERI, FEBC, CDP, CP #### [facility] [employer] [address] [place] [phone] Visitor Services Representative: Ganesh Moyer MD Protein [Mass/Vol] 7.0 g/dL Normal 6.4-8.3 [facility] Comment on above: Performed By: #### B 12FOL, FERI, FEBC, CDP, CP #### [facility] [address] [place] [address] Visitor Services Representative: Ganesh Moyer MD Sodium [Moles/Vol] 141 mmol/L Normal 135-144 [facility] Comment on above: Performed By: #### B 12FOL, FERI, FEBC, CDP, CP #### [facility] [address] [place] [phone] Visitor Services Representative: Ganesh Moyer MD Urea nitrogen [Mass/Vol] 21 mg/dL High 6-20 [facility] Comment on above: Performed By: #### B 12FOL, FERI, FEBC, CDP, CP #### [facility] [address] [place] [address] Visitor Services Representative: Ganesh Moyer MD Ferritinon 09-20-2022 Ferritin [Mass/Vol] 26 ng/mL Normal 13-150 [facility] Comment on above: Performed By: #### B 12FOL, FERI, FEBC, CDP, CP #### [facility] [address] [place] [address] Visitor Services Representative: Ganesh Moyer MD Iron Binding Cap.on 09-20-20 22 % Fe Saturation 10 % Low 20-55 [facility] Comment on above: Performed By: #### B 12FOL, FERI, FEBC, CDP, CP #### [facility] [employer] [address] [place] [phone] Visitor Services Representative: Ganesh Moyer MD Iron [Mass/Vol] 47 ug/dL Normal 37-145 [facility] Comment on above: Performed By: #### B 12FOL, FERI, FEBC, CDP, CP #### [facility] [employer] [address] [place] [phone] Visitor Services Representative: Ganesh Moyer MD Total Fe Binding Cap 458 ug/dL High 250-450 [facility] Comment on above: Performed By: #### B 12FOL, FERI, FEBC, CDP, CP #### [facility] [employer] [address] [place] [phone] Visitor Services Representative: Ganesh Moyer MD Unbound Fe Bind Cap 411 ug/dL High 112-347 [facility] Comment on above: Performed By: #### B 12FOL, FERI, FEBC, CDP, CP #### [facility] [employer] [address] [place] [phone] Visitor Services Representative: Ganesh Moyer MD CREATININE, BLOOD (POC)on Creatinine [Mass/Vol] 1.30 mg/dL 0.7 - 1.4 mg/dL [facility] eGFR (POCT) 48 mL/min/1.[address] [facility] [address] ENTEROGRAPHY W IVCONon CT ENTEROGRAPHY W IVCON Normal [facility] Panel Informationon 09-12 [facility] CBC with Diffon 08-17-2022 Abs. Basophil 0.06 k/uL Normal 0.00-0.20 [facility] Comment on above: Performed By: #### C MPF, VD25, CDP, LIPRF #### [place] [address] Visitor Services Representative: Ganesh Moyer MD Abs.Imm.Granulocyte 0.04 k/uL Normal 0.00-0.30 [facility] Comment on above: Performed By: #### C MPF, VD25, CDP, LIPRF #### [place] [address] Visitor Services Representative: Ganesh Moyer MD Abs.Neutrophil (Seg) 7.24 k/uL Normal 1.50-8.10 [facility] Comment on above: Performed By: #### C MPF, VD25, CDP, LIPRF #### [place] [address] Visitor Services Representative: Ganesh Moyer MD Basophils/100 WBC (Bld) 1 % Normal 0-2 [facility] Comment on above: Performed By: #### C MPF, VD25, CDP, LIPRF #### [place] [address] Visitor Services Representative: Ganesh Moyer MD Eosinophils (Bld) [#/Vol] 0.13 10*3/uL Normal 0.00-0.44 [facility] Comment on above: Performed By: #### C MPF, VD25, CDP, LIPRF #### [place] [address] Visitor Services Representative: Ganesh Moyer MD Eosinophils/100 WBC (Bld) 1 % Normal 1-4 [facility] Comment on above: Performed By: #### C MPF, VD25, CDP, LIPRF #### [place] [address] Visitor Services Representative: Ganesh Moyer MD Erythrocyte distribution width (RBC) [Ratio] 17.7 % High 11.8-14.4 [facility] Comment on above: Performed By: #### C MPF, VD25, CDP, LIPRF #### [address] [address] Visitor Services Representative: Ganesh Moyer MD Hematocrit (Bld) [Volume fraction] 31.3 % Low 36.3-47.1 [facility] Comment on above: Performed By: #### C MPF, VD25, CDP, LIPRF #### [address] [address] Visitor Services Representative: Ganesh Moyer MD Hemoglobin (Bld) [Mass/Vol] 9.1 g/dL Low 11.9-15.1 [facility] Comment on above: Performed By: #### C MPF, VD25, CDP, LIPRF #### [address] [address] Visitor Services Representative: Gaensh Moyer MD Immature granulocytes/100 WBC (Bld) 0 % Normal 0 [facility] Comment on above: Performed By: #### C MPF, VD25, CDP, LIPRF #### [address] [address] Visitor Services Representative: Ganesh Moyer MD Lymphocytes (Bld) [#/Vol] 3.22 10*3/uL Normal 1.10-3.70 [facility] Comment on above: Performed By: #### C MPF, VD25, CDP, LIPRF #### [address] [address] Visitor Services Representative: Ganesh Moyer MD Lymphocytes/100 WBC (Bld) 27 % Normal 24-43 [facility] Comment on above: Performed By: #### C MPF, VD25, CDP, LIPRF #### [address] [address] Visitor Services Representative: Ganesh Moyer MD MCH (RBC) [Entitic mass] 26.2 pg Normal 25.2-33.5 [facility] Comment on above: Performed By: #### C MPF, VD25, CDP, LIPRF #### [address] [address] Visitor Services Representative: Ganesh Moyer MD MCHC (RBC) [Mass/Vol] 29.1 g/dL Normal 28.4-34.8 [facility] Comment on above: Performed By: #### C MPF, VD25, CDP, LIPRF #### [address] [address] Visitor Services Representative: Ganesh Moyer MD MCV (RBC) [Entitic vol] 90.2 fL Normal 82.6-102.9 [facility] Comment on above: Performed By: #### C MPF, VD25, CDP, LIPRF #### [address] [address] Visitor Services Representative: Ganesh Moyer MD Monocytes (Bld) [#/Vol] 1.10 10*3/uL Normal 0.10-1.20 [facility] Comment on above: Performed By: #### C MPF, VD25, CDP, LIPRF #### [address] [address] Visitor Services Representative: Ganesh Moyer MD Monocytes/100 WBC (Bld) 9 % Normal 3-12 [facility] Comment on above: Performed By: #### C MPF, VD25, CDP, LIPRF #### [address] [address] Visitor Services Representative: Ganesh Moyer MD Neutrophil (Seg) 62 % Normal 36-65 [facility] Comment on above: Performed By: #### C MPF, VD25, CDP, LIPRF #### [address] [address] Visitor Services Representative: Ganesh Moyer MD NRBC Automated 0.0 per 100 WBC Normal 0.0 [facility] Comment on above: Performed By: #### C MPF, VD25, CDP, LIPRF #### [address] [address] Visitor Services Representative: Ganesh Moyer MD Platelet mean volume (Bld) [Entitic vol] 9.7 fL Normal 8.1-13.5 [facility] Comment on above: Performed By: #### C MPF, VD25, CDP, LIPRF #### [address] [address] Visitor Services Representative: Ganesh Moyer MD Platelets (Bld) [#/Vol] 336 10*3/uL Normal 138-453 [facility] Comment on above: Performed By: #### C MPF, VD25, CDP, LIPRF #### [address] [address] Visitor Services Representative: Ganesh Moyer MD RBC (Bld) [#/Vol] 3.47 10*6/uL Low 3.95-5.11 [facility] Comment on above: Performed By: #### C MPF, VD25, CDP, LIPRF #### [address] [address] Visitor Services Representative: Ganesh Moyer MD RBC morphology finding Nom (Bld) ANISOCYTOSIS PRESENT Normal [facility] Comment on above: Performed By: #### C MPF, VD25, CDP, LIPRF #### [address] [address] Visitor Services Representative: Ganesh Moyer MD WBC (Bld) [#/Vol] 11.8 10*3/uL High 3.5-11.3 [facility] Comment on above: Performed By: #### C MPF, VD25, CDP, LIPRF #### [address] [address] Visitor Services Representative: Ganesh Moyer MD Comp Metabol,Fastingon 08-17 Albumin [Mass/Vol] 3.7 g/dL Normal 3.5-5.2 [facility] Comment on above: Performed By: #### C MPF, VD25, CDP, LIPRF #### [address] [address] Visitor Services Representative: Ganesh Moyer MD Albumin/Glob Ratio 1.4 Normal 1.0-2.5 [facility] Comment on above: Performed By: #### C MPF, VD25, CDP, LIPRF #### [address] [address] Visitor Services Representative: Ganesh Moyer MD Alkaline Phos 80 U/L Normal 35-104 [facility] Comment on above: Performed By: #### C MPF, VD25, CDP, LIPRF #### [address] [address] Visitor Services Representative: Ganesh Moyer MD ALT [Catalytic activity/Vol] 18 U/L Normal 5-33 [facility] Comment on above: Performed By: #### C MPF, VD25, CDP, LIPRF #### [address] [address] Visitor Services Representative: Ganesh Moyer MD Anion gap [Moles/Vol] 9 mmol/L Normal 9-17 [facility] Comment on above: Performed By: #### C MPF, VD25, CDP, LIPRF #### [address] [address] Visitor Services Representative: Ganesh Moyer MD AST [Catalytic activity/Vol] 12 U/L Normal <32 [facility] Comment on above: Performed By: #### C MPF, VD25, CDP, LIPRF #### [facility] [employer] [address] [place] [address] Visitor Services Representative: Ganesh Moyer MD Bilirubin [Mass/Vol] 0.2 mg/dL Low 0.3-1.2 [facility] Comment on above: Performed By: #### C MPF, VD25, CDP, LIPRF #### [address] [address] Visitor Services Representative: Ganesh Moyer MD Calcium [Mass/Vol] 8.8 mg/dL Normal 8.6-10.4 [facility] Comment on above: Performed By: #### C MPF, VD25, CDP, LIPRF #### [address] [address] Visitor Services Representative: Ganesh Moyer MD Chloride [Moles/Vol] 111 mmol/L High 98-107 [facility] Comment on above: Performed By: #### C MPF, VD25, CDP, LIPRF #### [address] [address] Visitor Services Representative: Ganesh Moyer MD CO2 [Moles/Vol] 20 mmol/L Normal 20-31 [facility] Comment on above: Performed By: #### C MPF, VD25, CDP, LIPRF #### [facility] [employer] [address] [place] [address] Visitor Services Representative: Ganesh Moyer MD Creatinine [Mass/Vol] 1.06 mg/dL High 0.50-0.90 [facility] Comment on above: Performed By: #### C MPF, VD25, CDP, LIPRF #### [facility] [employer] [address] [place] [address] Visitor Services Representative: Ganesh Moyer MD GFR/1.73 sq M.predicted among non-blacks MDRD (S/P/Bld) [Vol rate/Area] mL/min/{1.73_m2} Normal >60 [facility] Comment on above: Result Comment: Effective Jul 11, 2022 These results are not intended for use in patients <18 years of age. eGFR results are calculated without a race factor using the 2020 CKD-EPI equation. Careful clinical correlation is recommended, particularly when comparing to results calculated using previous equations. The CKD-EPI equation is less accurate in patients with extremes of muscle mass, extra-renal metabolism of creatine, excessive creatine ingestion, or following therapy that affects renal tubular secretion. Performed By: #### C MPF, VD25, CDP, LIPRF #### [facility] [employer] [address] [place] [address] Visitor Services Representative: Ganesh Moyer MD Glucose [Mass/Vol] 85 mg/dL Normal 70-99 [facility] Comment on above: Performed By: #### C MPF, VD25, CDP, LIPRF #### [address] [address] Visitor Services Representative: Ganesh Moyer MD Potassium [Moles/Vol] 4.1 mmol/L Normal 3.7-5.3 [facility] Comment on above: Performed By: #### C MPF, VD25, CDP, LIPRF #### [address] [address] Visitor Services Representative: Ganesh Moyer MD Protein [Mass/Vol] 6.4 g/dL Normal 6.4-8.3 [facility] Comment on above: Performed By: #### C MPF, VD25, CDP, LIPRF #### [facility] [employer] [address] [place] [address] Visitor Services Representative: Ganesh Moyer MD Sodium [Moles/Vol] 140 mmol/L Normal 135-144 [facility] Comment on above: Performed By: #### C MPF, VD25, CDP, LIPRF #### [facility] [employer] [address] [place] [phone] Visitor Services Representative: Ganesh Moyer MD Urea nitrogen [Mass/Vol] 27 mg/dL High 6-20 [facility] Comment on above: Performed By: #### C MPF, VD25, CDP, LIPRF #### [facility] [employer] [address] [place] [phone] Visitor Services Representative: Ganesh Moyer MD Lipid Prof, Fastingon 2021 Cholesterol [Mass/Vol] 152 mg/dL Normal <200 [facility] Comment on above: Result Comment: Cholesterol Guidelines: <200 Desirable 200-240 Borderline >240 Undesirable Performed By: #### C MPF, VD25, CDP, LIPRF #### [address] [address] Visitor Services Representative: Ganesh Moyer MD Cholesterol in HDL [Mass/Vol] 61 mg/dL Normal >40 [facility] Comment on above: Result Comment: HDL Guidelines: <40 Undesirable 40-59 Borderline >59 Desirable Performed By: #### C MPF, VD25, CDP, LIPRF #### [address] [address] Visitor Services Representative: Ganesh Moyer MD Cholesterol in LDL [Mass/Vol] 63 mg/dL Normal 0-130 [facility] Comment on above: Result Comment: LDL Guidelines: <100 Desirable 100-129 Near to/above Desirable 130-159 Borderline >159 Undesirable Direct (measured) LDL and calculated LDL are not interchangeable tests. Performed By: #### C MPF, VD25, CDP, LIPRF #### [address] [address] Visitor Services Representative: Ganesh Moyer MD Cholesterol.total/Cho lesterol in HDL [Mass ratio] 2.5 {ratio} Normal <5 [facility] Comment on above: Performed By: #### C MPF, VD25, CDP, LIPRF #### [facility] [employer] [address] [place] [address] Visitor Services Representative: Ganesh Moyer MD Triglyceride,Fasting 138 mg/dL Normal <150 [facility] Comment on above: Result Comment: Triglyceride Guidelines: <150 Desirable 150-199 Borderline 200-499 High >499 Very high Based on AHA Guidelines for fasting triglyceride, July 2012. Performed By: #### C MPF, VD25, CDP, LIPRF #### [employer] [address] [place], [place] [phone] Visitor Services Representative: Ganesh Moyer MD Vitamin D 25 OHon 08-17-2022 Vitamin D 25 OH 26.9 ng/mL Low >29.9 [facility] Comment on above: Result Comment: Reference Range: Vitamin D status Range Deficiency <20 ng/mL Mild Deficiency 20-30 ng/mL Sufficiency 30-100 ng/mL Toxicity >100 ng/mL Performed By: #### C MPF, VD25, CDP, LIPRF #### [employer] [address] [place] [address] Visitor Services Representative: Ganesh Moyer MD CBC Auto Differentialon 08-10 Absolute Eos # 0.05 [facility] th Absolute Immature Granulocyte 0.00 [employer] Absolute Lymph # 2.40 [facility] alth Absolute Graham # 0.20 [facility] lth Basophils (Bld) [#/Vol] 0.00 10*3/uL [facility] Basophils/100 WBC (Bld) 0 % 0 - 2 % [facility] Differential Type NOT REPORTED [facility] Eosinophils/100 WBC (Bld) 1 % 1 - 4 % [facility] Hematocrit (Bld) [Volume fraction] 43.5 % 36.3 - 47.1 % [facility] Hemoglobin.gastrointe stinal spec 1 Ql (Stl) 13.8 g/dL 11.9 - 15.1 g/dL [facility] Immature granulocytes/100 WBC (Bld) 0 % 0 [facility] Interpretation and review of laboratory results Abnormal [facility] Lymphocytes/100 WBC (Bld) 49 % High 24 - 43 % [facility] MCH (RBC) [Entitic mass] 27.1 pg 25.2 - 33.5 pg [facility] [employer] MCHC (RBC) [Mass/Vol] 31.7 g/dL 28.4 - 34.8 g/dL [facility] MCV (RBC) [Entitic vol] 85.5 fL 82.6 - 102.9 fL [facility] Monocytes/100 WBC (Bld) 4 % 3 - 12 % [facility] Morphology Nathaniel (Bld) [Interp] Normal [facility] NRBC Automated 0.0 0.0 per 100 WBC [facility] Platelet distribution width (Bld) [Ratio] 13.6 % 11.8 - 14.4 % [facility] Platelet Estimate NOT REPORTED [facility] Platelet mean volume (Bld) [Entitic vol] 9.9 fL 8.1 - 13.5 fL [facility] Platelets (Bld) [#/Vol] 413 10*3/uL [facility] RBC (Bld) [#/Vol] 5.09 10*6/uL 3.95 - 5.11 m/uL [facility] RBC (Bld) [#/Vol] NOT REPORTED [facility] Segmented neutrophils/100 WBC (Bld) 46 % 36 - 65 % [facility] [#/Vol] 4.9 10*3/uL [facility] WBC (Bld) [#/Vol] NOT REPORTED [facility] Comprehensive Metabolic Pane l w/ Reflex to MGon 08-28-2021 Albumin [Mass/Vol] 3.7 g/dL 3.5 - 5.2 g/dL [facility] Albumin/Globulin [Mass ratio] 1.0 {ratio} [facility] ALP (Bld) [Catalytic activity/Vol] 171 U/L High 35 - 104 U/L [facility] ALT [Catalytic activity/Vol] 31 U/L 5 - 33 U/L [facility] Anion gap [Moles/Vol] 17 mmol/L 9 - 17 mmol/L [facility] AST [Catalytic activity/Vol] 29 U/L <32 [facility] Bilirubin [Mass/Vol] 0.30 mg/dL 0.3 - 1 .2 mg/dL [facility] Calcium [Mass/Vol] 9.2 mg/dL 8.6 - 10. 4 mg/dL [facility] Chloride [Moles/Vol] 104 mmol/L 98 - 10 7 mmol/L [facility] CO2 [Moles/Vol] 15 mmol/L Low 20 - 31 mmol/L [facility] Creatinine [Mass/Vol] 1.11 mg/dL High 0.50 - 0.90 mg/dL [facility] Free PSA/Total PSA [Mass fraction] 7.4 g/dL 6.4 - 8.3 g/dL [facility] GFR >60 >60 mL/min [facility] GFR Non- 51 mL/min Low >60 [facility] Glucose [Mass/Vol] 73 mg/dL 70 - 99 mg/dL [facility] Interpretation and review of laboratory results Abnormal [facility] Potassium [Moles/Vol] 3.0 mmol/L Low 3.7 - 5.3 mmol/L [facility] Sodium [Moles/Vol] 136 mmol/L 135 - 144 mmol/L [facility] Urea nitrogen (BldV) [Mass/Vol] 16 mg/dL 6 - 20 mg/dL [facility] Urea nitrogen/Creatinine (Bld) [Mass ratio] 14 [facility] Laboratory - Chemistry and C hemistry - challengeon 08-28-2021 GFR/1.73 sq M.predicted MDRD (S/P/Bld) [Vol rate/Area] [facility] Comment on above: Average GFR for 50-5 9 years old: 93 mL/min/1.73sq m Chronic Kidney Disease: <60 mL/min/1.73sq m Kidney failure: <15 mL/min/1.73sq m eGFR calculated using average adult body mass. Additional eGFR calculator available at: http://www.SinDelantal/multiple_crcl_2012.htm Stage 1: Some kidney damage normal GFR Stage 2: Mild kidney damage GFR 60-89 Stage 3: Moderate kidney damage GFR 30-59 Stage 4: Severe kidney damage GFR 15-29 Stage 5: Severe kidney damage GFR <15 ESRD - chronic treatment by dialysis or transplant Magnesiumon 08-28-2021 Magnesium [Mass/Vol] 1.9 mg/dL 1.6 - 2 .6 mg/dL [facility] CBC Auto DifferentialOrdered By: Josué Joe on 03-12-2021 Absolute Eos # 0.16 [facility] Work Phone: Absolute Immature Granulocyte 0.00 [facility] Work Phone: Absolute Lymph # 2.48 [facility] Work Phone: Absolute [place] # 0.72 [place] Work Phone: Basophils (Bld) [#/Vol] 0.08 10*3/uL [facility] Phone: Basophils/100 WBC (Bld) 1 % 0 - 2 % [facility] Phone: Differential Type NOT REPORTED [facility] Phone: Eosinophils/100 WBC (Bld) 2 % 1 - 4 % [facility] Phone: Hematocrit (Bld) [Volume fraction] 40.4 % 36.3 - 47.1 % [facility] Phone: Hemoglobin.gastrointe stinal spec 1 Ql (Stl) 12.7 g/dL 11.9 - 15.1 g/dL [facility] Phone: Immature granulocytes/100 WBC (Bld) 0 % 0 [facility] Phone: Lymphocytes/100 WBC (Bld) 31 % 24 - 43 % [facility] Phone: MCH (RBC) [Entitic mass] 28.2 pg 25.2 - 33.5 pg [facility] Phone: MCHC (RBC) [Mass/Vol] 31.4 g/dL 28.4 - 34.8 g/dL [facility] Phone: MCV (RBC) [Entitic vol] 89.6 fL 82.6 - 102.9 fL [facility] Phone: Monocytes/100 WBC (Bld) 9 % 3 - 12 % [facility] Phone: Morphology Nathaniel (Bld) [Interp] Normal [facility] Phone: NRBC Automated 0.0 0.0 per 100 WBC [facility] Phone: Platelet distribution width (Bld) [Ratio] 13.4 % 11.8 - 14.4 % [facility] Phone: Platelet Estimate NOT REPORTED [facility] Phone: Platelet mean volume (Bld) [Entitic vol] 10.1 fL 8.1 - 13.5 fL [employer] Work Phone: Platelets (Bld) [#/Vol] 394 10*3/uL [facility] Phone: RBC (Bld) [#/Vol] 4.51 10*6/uL 3.95 - 5.11 m/uL [employer] Work Phone: RBC (Bld) [#/Vol] NOT REPORTED [facility] Work Phone: Segmented neutrophils/100 WBC (Bld) 57 % 36 - 65 % [facility] Work Phone: Segs Absolute 4.56 [employer] Work Phone: WBC (Bld) [#/Vol] 8.0 10*3/uL [facility] Work Phone: WBC (Bld) [#/Vol] NOT REPORTED [facility] Phone: [employer] Work Phone: Comprehensive Metabolic Pane l, FastingOrdered By: Josué Joe on 03-12-2021 Albumin [Mass/Vol] 3.8 g/dL 3.5 - 5.2 g/dL [facility] Phone: Albumin/Globulin [Mass ratio] 1.1 {ratio} [facility] Phone: ALP (Bld) [Catalytic activity/Vol] 130 U/L High 35 - 104 U/L [facility] Phone: ALT [Catalytic activity/Vol] 18 U/L 5 - 33 U/L [facility] Phone: Anion gap [Moles/Vol] 11 mmol/L 9 - 17 mmol/L [facility] Phone: AST [Catalytic activity/Vol] 17 U/L <32 [facility] Phone: Bilirubin [Mass/Vol] 0.60 mg/dL 0.3 - 1 .2 mg/dL [facility] Phone: Calcium [Mass/Vol] 9.2 mg/dL 8.6 - 10. 4 mg/dL [facility] Phone: Chloride [Moles/Vol] 111 mmol/L High 98 - 10 7 mmol/L [facility] Phone: CO2 [Moles/Vol] 21 mmol/L 20 - 31 mmol/L [facility] Phone: Creatinine [Mass/Vol] 0.78 mg/dL 0.50 - 0.90 mg/dL [facility] Phone: Free PSA/Total PSA [Mass fraction] 7.2 g/dL 6.4 - 8.3 g/dL [facility] Phone: GFR >60 >60 mL/min [employer] Phone: GFR Non- >60 >60 mL/min [facility] Phone: Glucose [Mass/Vol] 91 mg/dL 70 - 99 mg/dL [facility] Phone: Interpretation and review of laboratory results Abnormal [facility] Phone: Potassium [Moles/Vol] 3.8 mmol/L 3.7 - 5.3 mmol/L [facility] Phone: Sodium [Moles/Vol] 143 mmol/L 135 - 144 mmol/L [facility] Phone: Urea nitrogen (BldV) [Mass/Vol] 17 mg/dL 6 - 20 mg/dL [facility] Phone: Urea nitrogen/Creatinine (Bld) [Mass ratio] 22 High [facility] Phone: [facility] Phone: Laboratory - Chemistry and C hemistry - challengeOrdered By: Josué Joe on 03-12-2021 GFR/1.73 sq M.predicted MDRD (S/P/Bld) [Vol rate/Area] [facility] Work Phone: Comment on above: Average GFR for 50-5 9 years old: 93 mL/min/1.73sq m Chronic Kidney Disease: <60 mL/min/1.73sq m Kidney failure: <15 mL/min/1.73sq m eGFR calculated using average adult body mass. Additional eGFR calculator available at: http://www.SinDelantal/multiple_crcl_2012.htm Stage 1: Some kidney damage normal GFR Stage 2: Mild kidney damage GFR 60-89 Stage 3: Moderate kidney damage GFR 30-59 Stage 4: Severe kidney damage GFR 15-29 Stage 5: Severe kidney damage GFR <15 ESRD - chronic treatment by dialysis or transplant Vitamin [id number] By: Josué Joe on 03-12-2021 Cobalamin (Vitamin B12) [Mass/Vol] 898 pg/mL 232 - 1245 pg/mL [facility] Work Phone: [employer] Work Phone: Vital Signs Date Time Vital Sign Value Performing Clinician Facility 07-24-2023 10:03-0400 Body height 147.3 cm Edyalejandro PrabhakarOptisort Work Phone: [facility] 07-24-2023 10:03-0400 Body weight 46.54 kg Edyalejandro LopezOneal DO Work Phone: [facility] 06-17-2023 19:10-0400 Body temperature 99 [degF] Josué Joe MD Work Phone: [facility] [employer] 06-17-2023 19:10-0400 Diastolic blood pressure 95 mm[Hg] Josué Joe MD Work Phone: [facility] [employer] 06-17-2023 19:10-0400 Heart rate 88 /min Josué Joe MD Work Phone: [facility] [employer] 06-17-2023 19:10-0400 Respiratory rate 14 /min Josué Joe MD Work Phone: [facility] 06-17-2023 19:10-0400 SaO2% (BldA) [Mass fraction] 98 % Josué Joe MD Work Phone: [facility] 06-17-2023 19:10-0400 Systolic blood pressure 157 mm[Hg] Josué Joe MD Work Phone: [facility] 05-18-2023 13:00-0400 Body height 147.3 cm Melba Shahan VOICE INTERCEPT TECHNICIAN.INGOT SUPERVISOR Work Phone: [facility] 05-18-2023 13:00-0400 Body weight 45.81 kg Melba Shahan VOICE INTERCEPT TECHNICIAN.INGOT SUPERVISOR Work Phone: [facility] 04-19-2023 13:53-0400 Body height 147.3 cm Edy Oneal DO Work Phone: [facility] 04-19-2023 13:53-0400 Body weight 44.91 kg Edy Oneal DO Work Phone: [facility] 04-19-2023 11:57-0400 Body height 147.3 cm Pacc 2 Work Phone: [facility] 04-19-2023 11:57-0400 Body temperature 97.7 [degF] Pacc 2 Work Phone: [facility] 04-19-2023 11:57-0400 Body weight 44.91 kg Pacc 2 Work Phone: [facility] 04-19-2023 11:57-0400 Diastolic blood pressure 71 mm[Hg] Pacc 2 Work Phone: [facility] 04-19-2023 11:57-0400 Heart rate 66 /min Pacc 2 Work Phone: [facility] 04-19-2023 11:57-0400 SaO2% (BldA) [Mass fraction] 99 % Pacc 2 Work Phone: [facility] 04-19-2023 11:57-0400 Systolic blood pressure 131 mm[Hg] Pacc 2 Work Phone: [facility] 12-23-2022 11:29-0400 Body height 147.3 cm Janell Kaplan MD Work Phone: [facility] 12-23-2022 11:29-0400 Body temperature 98.29 [degF] Janell Kaplan MD Work Phone: [facility] 12-23-2022 11:29-0400 Body weight 43.73 kg Janell Kaplan MD Work Phone: [facility] 12-23-2022 11:29-0400 Diastolic blood pressure 64 mm[Hg] Janell Kaplan MD Work Phone: [facility] 12-23-2022 11:29-0400 Heart rate 91 /min Janell Kaplan MD Work Phone: [facility] 12-23-2022 11:29-0400 SaO2% (BldA) [Mass fraction] 95 % Janell Kaplan MD Work Phone: [facility] 12-23-2022 11:29-0400 Systolic blood pressure 98 mm[Hg] Janell Kaplan MD Work Phone: [facility] 11-30-2022 13:42-0500 Body height 147.3 cm Melba Reina APRN.INGOT SUPERVISOR Work Phone: [facility] 11-30-2022 13:42-0500 Body weight 43.09 kg Melba Reina APRN.INGOT SUPERVISOR Work Phone: [facility] 11-13-2022 11:44-0500 Respiratory rate 18 /min [facility] 11-13-2022 11:15-0500 Diastolic blood pressure 64 mm[Hg] Harry [facility] 11-13-2022 11:15-0500 Heart rate 81 /min [facility] 11-13-2022 11:15-0500 SaO2% (BldA) [Mass fraction] 95 % Harry Yuan MD [facility] 11-13-2022 11:15-0500 Systolic blood pressure 139 mm[Hg] Harry Yuan MD [facility] 11-12-2022 19:07-0500 Body mass index (BMI) [Ratio] 19.65 kg/m2 Harry Yuan MD [facility] 11-12-2022 19:07-0500 Body temperature 96.91 [degF] Harry Yuan MD [facility] 11-12-2022 19:07-0500 Body weight 42.64 kg Harry Yuan MD [facility] 11-11-2022 13:15-0500 Body temperature 98.49 [degF] Chair [place] Work Phone: [facility] 11-11-2022 13:15-0500 Diastolic blood pressure 67 mm[Hg] Chair Patrick Work Phone: [facility] 11-11-2022 13:15-0500 Heart rate 77 /min Chair [place] Work Phone: [facility] 11-11-2022 13:15-0500 Respiratory rate 16 /min Chair [place] Work Phone: [facility] 11-11-2022 13:15-0500 SaO2% (BldA) [Mass fraction] 94 % Chair [place] Work Phone: [facility] [facility] 11-11-2022 13:15-0500 Systolic blood pressure 96 mm[Hg] Chair [place] Work Phone: [facility] 11-04-2022 13:02-0500 Body temperature 97.9 [degF] Chair [place] Work Phone: [facility] 11-04-2022 13:02-0500 Diastolic blood pressure 82 mm[Hg] Chair [place] Work Phone: [facility] 11-04-2022 13:02-0500 Heart rate 73 /min Chair [place] Work Phone: [facility] 11-04-2022 13:02-0500 Respiratory rate 18 /min Chair [place] Work Phone: [facility] 11-04-2022 13:02-0500 SaO2% (BldA) [Mass fraction] 98 % Chair [place] Work Phone: [facility] 11-04-2022 13:02-0500 Systolic blood pressure 125 mm[Hg] Chair [place] Work Phone: [facility] 10-28-2022 13:16-0500 Body temperature 98.2 [degF] Chair [place] Work Phone: [facility] 10-28-2022 13:16-0500 Diastolic blood pressure 78 mm[Hg] Chair [place] Work Phone: [facility] 10-28-2022 13:16-0500 Heart rate 82 /min Chair Patrick Work Phone: [facility] 10-28-2022 13:16-0500 Respiratory rate 16 /min Chair Patrick Work Phone: [facility] 10-28-2022 13:16-0500 SaO2% (BldA) [Mass fraction] 100 % Chair Patrick Work Phone: [facility] 10-28-2022 13:16-0500 Systolic blood pressure 133 mm[Hg] Chair [place] Work Phone: [facility] 09-22-2022 09:47-0500 Body height 147.3 cm Ricky Garces APRN.INGOT SUPERVISOR Work Phone: [facility] 09-22-2022 09:47-0500 Body weight 44.45 kg Ricky Garces APRN.INGOT SUPERVISOR Work Phone: [facility] 08-28-2021 17:19-0500 Diastolic blood pressure 60 mm[Hg] Jonah Falcon Jr., MD Work Phone: [facility] 08-28-2021 17:19-0500 Heart rate 77 /min Jonah Falcon Jr., MD Work Phone: [facility] 08-28-2021 17:19-0500 Respiratory rate 18 /min Jonah Falcon Jr., MD Work Phone: [facility] 08-28-2021 17:19-0500 SaO2% (BldA) [Mass fraction] 100 % Jonah Falcon Jr., MD Work Phone: [facility] 08-28-2021 17:19-0500 Systolic blood pressure 118 mm[Hg] Jonah Falcon Jr., MD Work Phone: [facility] 08-28-2021 11:29-0500 Body temperature 99.5 [degF] Jonah Falcon Jr., MD Work Phone: [facility] 08-27-2021 09:45-0500 Diastolic blood pressure 77 mm[Hg] [address] 08-27-2021 09:45-0500 Heart rate 86 /min [address] 08-27-2021 09:45-0500 SaO2% (BldA) [Mass fraction] 96 % [address] 08-27-2021 09:45-0500 Systolic blood pressure 128 mm[Hg] [address] 08-27-2021 09:15-0500 Respiratory rate 18 /min [address] 08-27-2021 08:15-0500 Body temperature 97.59 [degF] [address] Encounters Encounter Date Encounter Type Care Provider Facility Start: 09-25-[address] [facility] Start: 09-18-2023 End: 09-19-2023 ambulatory COMFORT AVITIA [facility] Start: 09-11-2023 End: 09-12-2023 ambulatory COMFORT Catherine AVITIA [facility] Start: 09-04-2023 End: 09-05-[address] [facility] Start: 08-28-2023 End: 08-29-2023 ambulatory COMFORT Catherine AVITIA [facility] Start: 08-21-2023 End: 08-22-[address] 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); On total parenteral nutrition (TPN); Therapeutic drug monitoring Start: 08-16-2023 End: 08-16-2023 Telemedicine consultation with patient Janell Kaplan MD Work Phone: [facility] Start: 08-15-2023 Chart abstracting Cgrt Dietiti an Work Phone: Gastroenterology Start: 08-14-2023 End: 08-15-2023 ambulatory [facility] Start: 08-07-2023 End: 08-08-2023 ambulatory COMFORT [facility]ry [facility] Start: 07-28-2023 ambulatory Janell Kaplan MD Work Phone: Gastroenterology Comment on above: Tpn Start: 07-24-2023 End: 07-25-2023 ambulatory [facility] Facility:[facility] Start: 07-24-2023 End: 07-24-2023 Patient encounter procedure Edy Oneal DO Work Phone: Colorectal Surgery Comment on above: 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) Start: 07-21-2023 Telephone encounter Marce ivey PA-C Work Phone: Gastroenterology Comment on above: Manager Strategic Partnerships - O ther Start: 07-21-2023 End: 07-21-2023 ambulatory Marce Hsu PA-C Work Phone: Gastroenterology Comment on above: Crohn's disease of s mall and large intestines with complication (HCC) (Primary Dx) Start: 07-21-2023 End: 07-21-2023 Telemedicine consultation with patient Marce Hsu PA-C Work Phone: [facility] Start: 07-17-2023 End: 07-18-2023 ambulatory JOSUÉ TREVIZO [facility] Start: 06-17-2023 End: 06-17-2023 Emergency department patient visit [facility] Start: 06-17-2023 End: 06-17-2023 Emergency department patient visit Josué Joe MD Work Phone: [facility] ED Comment on above: Abscess of leg (Prim ramya Dx) Start: 06-06-2023 Chart abstracting Cgrt Dietiti an Work Phone: Gastroenterology Comment on above: Refill Request Start: 06-06-2023 End: 06-07-2023 ambulatory [facility] Facility:[facility] Start: 05-29-2023 Telephone encounter Marce ivey PA-C Work Phone: Gastroenterology Comment on above: Appointment Start: 05-29-2023 End: 05-30-2023 ambulatory [facility] Start: 05-29-2023 End: 05-29-2023 Subsequent hospital visit by physician Josué Joe MD Work Phone: [facility] Start: 05-22-2023 End: 05-23-2023 ambulatory [facility] Start: 05-18-2023 End: 05-18-2023 ambulatory [facility] Facility:[facility] Start: 05-18-2023 E-mail encounter fro m caregiver Leilani Stokes APRN.INGOT SUPERVISOR Work Phone: [facility] Start: 05-18-2023 Follow-up encounter Leilani pickens APRN.INGOT SUPERVISOR Work Phone: Gastroenterology Comment on above: Follow Up Appointmen t for IBD Start: 05-18-2023 End: 05-18-2023 Patient encounter procedure Melba Reina APRN.INGOT SUPERVISOR Work Phone: Colorectal Surgery Comment on above: Postoperative examin ation (Primary Dx) Start: 05-15-2023 End: 05-16-2023 ambulatory COMFORT AVITIA [facility] Start: 05-08-2023 End: 05-09-2023 ambulatory COFMORT Thomas MD [facility] Start: 05-04-2023 End: 05-05-2023 ambulatory GRETA Nguyen [facility] Start: 05-04-2023 End: 05-04-2023 Subsequent hospital visit by physician Josué Joe MD Work Phone: [facility] Start: 05-01-2023 End: 05-02-[address] [facility] Start: 04-28-2023 End: 04-29-2023 ambulatory [facility] Start: 04-27-2023 Telephone encounter Josué Joe MD Work Phone: NOC Comment on above: Follow Up Phone Call (Post Discharge F/U - attempt made. No answer) Start: 04-25-2023 End: 04-26-2023 ambulatory [facility] Start: 04-20-2023 End: 04-23-2023 Evaluation and management of inpatient JOSUÉ TREVIZO TATYANA Facility:[facility] Start: 04-19-2023 End: 04-20-2023 ambulatory JOSUÉ TREVIZO TATYANA Facility:[facility] Start: 04-19-2023 End: 04-20-2023 ambulatory JOSUÉ TREVIZO [facility] Facility:[facility] Start: 04-19-2023 End: 04-20-2023 Patient encounter procedure Edy No DO Work Phone: Colorectal Surgery Comment on above: Attention to ileosto my (HCC) (Primary Dx) Start: 04-19-2023 End: 04-20-2023 ambulatory Nurse Pt Ed Cors Work Phone: Colorectal Surgery Comment on above: Patient Education Start: 04-19-2023 ambulatory JOSUÉ JOE Facil ity:[facility] Start: 04-19-2023 End: 04-19-2023 Admission to [facility] Pacc Main 2 Work Phone: [facility] Start: 04-19-2023 End: 04-19-2023 Nutrition therapy Pac Main 2 Work Phone: Pre Anesthesia Comment on above: Ileostomy in place ( [facility]); Essential hypertension; Anxiety; History of DVT (deep vein thrombosis); Anemia, unspecified type; SERENITY (acute kidney injury) ([facility]); Medical marijuana use; Anemia of renal disease; On total parenteral nutrition (TPN); Fibromyalgia Start: 04-17-2023 End: 04-18-2023 ambulatory JANELLEVAN WERNER [facility] Start: 04-17-2023 End: 04-17-2023 Subsequent hospital visit by physician Josué Joe MD Work Phone: [facility] Start: 04-13-2023 End: 04-13-2023 ambulatory JOSUÉ JOE Facility:[facility] Start: 04-10-2023 End: 04-10-2023 Subsequent hospital visit by physician Josué Joe MD Work Phone: [facility] Start: 04-10-2023 End: 04-11-2023 ambulatory Edy No Work Phone: Colorectal Surgery Comment on above: Blood thinner Start: 04-04-2023 Telephone encounter Hpn Dietic angella Work Phone: Gastroenterology Comment on above: return a call Start: 04-03-2023 End: 04-04-2023 ambulatory JOSUÉ SANTHOSH TATYANA [facility] Start: 03-31-2023 ambulatory Comfort sharif MD Work Phone: Infectious Disease Comment on above: [employer] Stop Start: 03-28-2023 End: 03-29-[address] [facility] Start: 03-23-[address] Gastroe nterology Comment on above: Refill Request Start: 03-21-2023 Telephone encounter Hpn Dietic angella Work Phone: Gastroenterology Comment on above: Refill Request Start: 03-20-2023 End: 03-21-2023 ambulatory COMFORT AVITIA [facility] Start: 03-20-2023 End: 03-20-2023 ambulatory [facility] Start: 03-16-2023 End: 03-17-2023 ambulatory [facility] Start: 03-14-2023 End: 03-14-2023 ambulatory Comfort Avitia MD Work Phone: [facility] Comment on above: CoPat Start [employer] Agency Start: 03-08-2023 End: 03-08-2023 Evaluation and management of inpatient PHILIPSharee BRIGGS Facility:[facility] Start: 03-02-2023 End: 03-14-2023 Evaluation and management of inpatient TALIA MATTHEWSUTAZia Facility:[facility] Start: 03-01-2023 End: 03-01-[address] JOSUÉ JOE Facility: Start: 02-25-2023 End: 02-28-2023 [facility] Start: 02-24-2023 End: 02-25-2023 ambulatory JOSUÉ TREVIZO TATYANA Facility:[facility] Start: 02-21-2023 End: 02-21-2023 ambulatory Jared Cardenas APRN.INGOT SUPERVISOR Work Phone: Colorectal Surgery Comment on above: stoma Start: 02-21-2023 E-mail encounter fro m caregiver Jared Cardenas VOICE INTERCEPT TECHNICIAN.INGOT SUPERVISOR Work Phone: [facility] Start: 02-20-2023 Telephone encounter Edy muller DO Work Phone: Colorectal Surgery Comment on above: Patient Update Start: 02-16-2023 End: 02-17-2023 Emergency department patient visit JOSUÉ TREVIZO TATYANA [facility] Start: 02-15-2023 End: 02-15-2023 ambulatory JOSUÉ TREVIZO TATYANA Facility:[facility] Start: 02-15-2023 End: 02-15-2023 ambulatory Edy No DO Work Phone: Colorectal Surgery Comment on above: 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) Start: 02-15-2023 End: 02-15-2023 Telemedicine consultation with patient Edy Prabhakark DO Work Phone: [facility] Start: 02-13-2023 Telephone encounter Barrett perales Work Phone: Gastroenterology Comment on above: Refill Request Start: 02-07-2023 End: 02-08-[address] [facility] Start: 02-07-2023 End: 02-07-2023 Subsequent hospital visit by physician Josué Joe MD Work Phone: [facility] Start: 02-01-2023 Telephone encounter Edy Aki muller DO Work Phone: Colorectal Surgery Comment on above: Return To Work Lette r Start: 01-31-2023 Telephone encounter Edy muller DO Work Phone: Colorectal Surgery Comment on above: Patient Question Start: 01-25-2023 End: 01-26-2023 ambulatory Melba Reina VOICE INTERCEPT TECHNICIAN.INGOT SUPERVISOR Work Phone: Colorectal Surgery Comment on above: Return to work form Start: 01-25-2023 End: 01-25-2023 Subsequent hospital visit by physician Josué Joe MD Work Phone[facility] Comment on above: Anxiety; Vitamin D deficiency Start: 01-23-2023 ambulatory Melba sharif VOICE INTERCEPT TECHNICIAN.INGOT SUPERVISOR Work Phone: Colorectal Surgery Comment on above: Return to work Start: 01-19-2023 ambulatory Janell Kaplan MD Work Phone: Gastroenterology Comment on above: Codeine Start: 01-18-2023 End: 01-19-2023 ambulatory Melba Renia VOICE INTERCEPT TECHNICIAN.INGOT SUPERVISOR Work Phone: Colorectal Surgery Comment on above: Return to work Start: 01-18-2023 End: 01-18-2023 Subsequent hospital visit by physician Josué Joe MD Work Phone: [facility] Start: 01-16-2023 Telephone encounter Hns Kamille perales Work Phone: Gastroenterology Comment on above: Question Start: 01-13-2023 Refill Hns Human Capital Analyst Work Phone: Gastroenterology Comment on above: Refill Request Start: 01-03-2023 Telephone encounter Hns Dietic angella Work Phone: Gastroenterology Comment on above: Patient Update Start: 01-02-2023 End: 01-03-2023 ambulatory [facility] Start: 01-02-2023 End: 01-02-2023 Subsequent hospital visit by physician Josué Joe MD Work Phone: [facility] Start: 12-29-2022 Telephone encounter Hns Dietic angella Work Phone: Gastroenterology Comment on above: Question Start: 12-27-2022 ambulatory Edy No DO Work Phone: Colorectal Surgery Start: 12-26-2022 End: 12-27-2022 ambulatory Melba Reina APRN.CNP Work Phone: Colorectal Surgery Comment on above: Work Start: 12-26-2022 End: 12-26-2022 Subsequent hospital visit by physician Josué Joe MD Work Phone: [facility] Start: 12-23-2022 Chart abstracting Hns Dieticia n Work Phone: Gastroenterology Start: 12-23-2022 End: 12-23-2022 ambulatory JOSUÉ JOE Facility:[facility] Start: 12-23-2022 End: 12-23-2022 Patient encounter procedure Hns Human Capital Analyst Work Phone: Gastroenterology Comment on above: Feeding difficulties (Primary Dx) Diarrhea, unspecifie d type (Primary Dx); Short bowel syndrome; On total parenteral nutrition (TPN); Therapeutic drug monitoring Start: 12-19-2022 End: 12-20-2022 [facility] Start: 12-14-2022 End: 12-14-2022 ambulatory JOSUÉ JOE Facility:[facility] Start: 12-12-2022 End: 12-13-2022 ambulatory [facility] Start: 12-12-2022 End: 12-12-2022 Subsequent hospital visit by physician Josué Joe MD Work Phone: [facility] Start: 12-09-2022 Telephone encounter Edy muller DO Work Phone: Colorectal Surgery Comment on above: Manager Strategic Partnerships - O ther Start: 12-08-2022 Telephone encounter Edy umller DO Work Phone: Colorectal Surgery Comment on above: Patient Question Start: 12-06-2022 End: 12-07-2022 ambulatory [facility] Start: 12-06-2022 End: 12-06-2022 Subsequent hospital visit by physician Josué Joe MD Work Phone: [facility] Start: 12-05-2022 End: 12-06-2022 ambulatory Melba Reina APRN.INGOT SUPERVISOR Work Phone: Colorectal Surgery Comment on above: Stelara Start: 12-01-2022 ambulatory Melba sharif APRN.INGOT SUPERVISOR Work Phone: Colorectal Surgery Comment on above: Stelara Start: 12-01-2022 E-mail encounter fro m caregiver Melba Reina APRN.INGOT SUPERVISOR Work Phone: [facility] Start: 12-01-2022 Follow-up encounter Melba Reina APRN.INGOT SUPERVISOR Work Phone: Colorectal Surgery Comment on above: Follow up from yeste rday visit. Start: 12-01-2022 Telephone encounter Sebastián perales Work Phone: Gastroenterology Comment on above: Question Start: 11-30-2022 End: 12-01-2022 ambulatory JOSUÉ JOE Facility:[facility] Start: 11-30-2022 End: 11-30-2022 Patient encounter procedure Melba Reina APRN.INGOT SUPERVISOR Work Phone: Colorectal Surgery Comment on above: Postoperative examin ation (Primary Dx) Start: 11-28-2022 End: 11-29-[address] [facility] Start: 11-28-2022 End: 11-28-2022 Subsequent hospital visit by physician Josué Joe MD Work Phone: [facility] Start: 11-23-2022 End: 11-23-2022 Evaluation and management of inpatient JOSUÉ JOE Facility:[facility] Start: 11-17-2022 Telephone encounter Arnie shabazz MD Work Phone: Gastroenterology Comment on above: Appointment Start: 11-14-2022 Telephone encounter Stephy Eden RN Colorectal Surgery Comment on above: Manager Strategic Partnerships - O ther Start: 11-14-2022 ambulatory COLTEN GUTIERREZ Facility :[facility] Start: 11-13-2022 End: 11-23-2022 Evaluation and management of inpatient JOSUÉ SANTHOSH TATYANA Facility:[facility] Start: 11-12-2022 End: 11-13-2022 Emergency department patient visit LESLIE DELGADILLO [facility] Start: 11-12-2022 End: 11-13-2022 Emergency department patient visit Harry Yuan MD [facility] ED Comment on above: Large bowel obstruct ion (HCC) (Primary Dx) Start: 11-11-2022 End: 11-12-2022 ambulatory Chair 11 [place] Work Phone: Hematology/Oncology Comment on above: Anemia of renal dise ase (Primary Dx); Other iron deficiency anemia Start: 11-10-2022 Orders Only Arnie Lion MD Work Phone: Gastroenterology Comment on above: Crohn's disease of s mall and large intestines with complication (HCC) (Primary Dx) Manager Strategic Partnerships - O ther Start: 11-04-2022 End: 11-04-2022 ambulatory Chair 11 [place] Work Phone: Hematology/Oncology Comment on above: Anemia of renal dise ase (Primary Dx); Other iron deficiency anemia Start: 10-28-2022 End: 10-28-2022 ambulatory Chair 11 Patrick Work Phone: Hematology/Oncology Comment on above: Anemia of renal dise ase (Primary Dx); Other iron deficiency anemia Start: 10-21-2022 End: 10-22-2022 ambulatory RICKY GARCES Facility:[facility] Start: 10-04-2022 Telephone encounter Ricky akhtar APRN.INGOT SUPERVISOR Work Phone: Cancer [facility] Comment on above: Appointment Start: 09-22-2022 Telephone encounter Ricky akhtar VOICE INTERCEPT TECHNICIAN.INGOT SUPERVISOR Work Phone: Hematology/Medical Oncology Comment on above: Returning Patient's Call Start: 09-20-2022 ambulatory Katherine sharif [facility] Comment on above: Opened In Error Start: 09-19-2022 End: 09-20-2022 ambulatory JOSUÉ JOE [facility] Start: 09-19-2022 End: 09-19-2022 Subsequent hospital visit by physician Josué Joe MD Work Phone: [facility] Start: 09-16-2022 End: 09-16-2022 ambulatory Ricky Garces VOICE INTERCEPT TECHNICIAN.INGOT SUPERVISOR Work Phone: Hematology/Oncology Comment on above: Anemia, unspecified type (Primary Dx); Crohn's disease of small and large intestines with complication (HCC) Start: 09-16-2022 E-mail encounter yudith thomas caregiver Ricky Garces APRN.INGOT SUPERVISOR Work Phone: [facility] Start: 09-16-2022 Follow-up encounter Ricky akhtar APRN.INGOT SUPERVISOR Work Phone: Hematology/Medical Oncology Comment on above: Anemia follow up Start: 09-16-2022 End: 09-16-2022 Telemedicine consultation with patient [facility] Start: 09-15-2022 End: 09-26-[address] [facility] Comment on above: SPP Inflammatory Con ditions - Patient Assistance (Stelara - JJPAF program transition) Start: 09-15-2022 E-mail encounter yudith m caregiver [facility] Start: 09-13-2022 End: 09-13-2022 ambulatory Arnie Lion MD Work Phone: Gastroenterology Comment on above: Crohn's disease of s mall and large intestines with complication (HCC) (Primary Dx) Start: 09-13-2022 End: 09-13-2022 Telemedicine consultation with patient Arnie Lion MD Work Phone: [facility] Start: 09-12-2022 End: 09-12-2022 ambulatory ARNIE LION Facility:[facility] Start: 09-12-2022 End: 09-12-2022 Subsequent hospital visit by physician Ct 2 Main Qb (I-Stat) Radiology Comment on above: Diarrhea, unspecifie d type [R19.7] Start: 08-17-2022 ambulatory Arnie Lion MD Work Phone: Gastroenterology Comment on above: Steroids Start: 08-16-2022 End: 08-17-2022 ambulatory JOSUÉ SANTHOSH TATYANA [facility] Start: 08-15-2022 Specialty Pharmacy Ellen hernadez [facility] Comment on above: SPP Inflammatory Con ditions - Medication Refill (Stelara) Start: 08-12-2022 ambulatory Arnie Lion MD Work Phone: Gastroenterology Comment on above: Steriods Start: 07-25-2022 ambulatory Arnie Lion MD Work Phone: Gastroenterology Comment on above: Stelara Start: 07-04-2022 Specialty Pharmacy Ellen hernadez [facility] Comment on above: SPP Inflammatory Con ditions - Medication Refill (Stelara) Start: 05-23-2022 Specialty Pharmacy Ellen hernadez [facility] Comment on above: SPP Inflammatory Con ditions - Medication Refill (Stelara 90mg - q6w dosing) Start: 05-09-2022 Refill Arnie Lion MD Work Phone: Gastroenterology Comment on above: Refill Request Start: 04-12-2022 Specialty Pharmacy Ellen hernadez [facility] Comment on above: SPP Inflammatory Con ditions - Medication Refill (Stelara) Start: 03-03-2022 Refill Arnie Lion MD Work Phone: Gastroenterology Comment on above: Refill Request Start: 01-17-2022 Specialty Pharmacy Katherine Nash govearadha [facility] Comment on above: SPP Inflammatory Con ditions - Medication Refill (Stelara) Start: 08-28-2021 End: 08-28-2021 Emergency department patient visit Jonah Falcon MD Work Phone: [facility] ED Comment on above: Dehydration (Primary Dx); Nausea vomiting and diarrhea; COVID-19; Hypokalemia Start: 08-27-2021 End: 08-27-2021 Subsequent hospital visit by physician [facility] Op Treatment 06 [facility] ([facility]) Comment on above: COVID-19 (Primary Dx ) Start: 07-09-2021 End: 07-11-2021 Subsequent hospital visit by physician Josué Joe MD Work Phone: [facility] Radiology Start: 03-12-2021 End: 03-12-2021 Subsequent hospital visit by physician Josué Joe MD Work Phone: [facility] Laboratory Comment on above: Crohn's disease of b oth small and large intestine with intestinal obstruction (HCC) Procedures Date Procedure Procedure Detail Performing Clinician Start: 06-17-2023 Radex ankle complete minimum 3 views Nasim Sanon PA-C Work Phone: Start: 05-29-2023 Comprehensive metabo lic panel Janell Kaplan MD Work Phone: Start: 05-04-2023 Comprehensive metabo lic panel Janell Kaplan MD Work Phone: Start: 04-19-2023 Antibody screen RICKY HARRISON Comment on above: Order Comment: Speci men Type: BLOOD SPECIMENOrdering Facility: [facility] Address: [address] [place], [place] [id number] Performed By: #### T [id number] ####CC MAIN BLOOD BANKCLIA [id number] Start: 04-17-2023 Comprehensive metabo lic panel Janell Kaplan MD Work Phone: Start: 04-10-2023 Comprehensive metabo lic panel Janell Kaplan MD Work Phone: Start: 03-03-2023 Echocardiography RICKY GARCES Start: 02-07-2023 Comprehensive metabo lic panel Janell Kaplan MD Work Phone: Start: 01-25-2023 25 hydroxy includes fractions if performed Josué Joe MD Work Phone: Start: 01-25-2023 Drug tst prsmv instr mnt chem analyzers pr date Josué Joe MD Work Phone: Start: 01-18-2023 Comprehensive metabo lic panel Janell Kaplan MD Work Phone: Start: 01-02-2023 Comprehensive metabo lic panel Janell Kaplan MD Work Phone: Start: 12-26-2022 Comprehensive metabo lic panel Janell Kaplan MD Work Phone: Start: 12-12-2022 Comprehensive metabo lic panel Janell Kaplan MD Work Phone: Start: 11-28-2022 Comprehensive metabo lic panel Janell Kaplan MD Work Phone: Start: 11-13-2022 Antibody screen RICKY HARRISON Comment on above: Order Comment: Speci men Type: BLOOD SPECIMENOrdering Facility: [facility] Address: [address] [place] [address] Performed By: #### T SCR ####CC MAIN BLOOD BANKCLIA [id number] [address] Start: 11-12-2022 COVID-19, RAPID Harry castle MD Start: 11-12-2022 Iaadiadoo influenza Patrick Yuan MD Start: 02-04-2023 Urnls dip stick/tabl et reagent auto microscopy Harry Yuan MD Start: 11-12-2022 Ecg routine ecg w/le ast 12 lds w/i&r Harry Yuan MD Start: 11-12-2022 Radiologic exam ches t single view Harry Yuan MD Start: 11-12-2022 Ct abdomen & pelvis w/contrast material Harry Yuan MD Start: 11-12-2022 C-reactive protein Harry Yuan MD Start: 11-12-2022 Comprehensive metabo lic panel Harry Yuan MD Start: 09-12-2022 Ct abdomen & pelvis w/contrast material Arnie Lion MD Work Phone: Start: 09-12-2022 Creatinine [Mass/vol ume] in Serum or Plasma [facility] Start: 08-28-2021 Assay of magnesium Will jose david Falcon MD Work Phone: Start: 03-12-2021 Cyanocobalamin vitamin b-12 Josué Joe MD Work Phone: Start: 06-29-2020 Colonoscopy [facility] Start: 06-19-2019 Microscopic observat ion [Identifier] in Cervix by Cyto stain Josué Joe MD Work Phone: Start: 06-26-2017 Colonoscopy Josué Joe MD Work Phone: Plan of Treatment Date Care Activity Detail Author Start: 06-29-2030 Screening for malign ant neoplasm of colon [facility] Start: 08-16-2027 Lipid panel Lipids [facility] Start: 06-26-2027 Screening for malign ant neoplasm of colon [facility] Start: 2026 HEPATITIS B (1 of 3 - Risk 3-dose series) HEPATITIS B (1 of 3 - Risk 3-dose series) [facility] Start: 2026 Hepatitis B Vaccine (1 of 3 - Risk 3-dose series) Hepatitis B Vaccine (1 of 3 - Risk 3-dose series) [facility] Start: 04-23-2026 DIABETES SCREEN DIABETES SCREEN [facility] Start: 04-23-2026 Diabetes Screening Diabetes Screenin g [facility] Start: 04-20-2026 DIABETES SCREEN DIABETES SCREEN [facility] Start: 03-14-2026 DIABETES SCREEN DIABETES SCREEN [facility] Start: 11-23-2025 DIABETES SCREEN DIABETES SCREEN [facility] Start: 11-17-2025 DIABETES SCREEN DIABETES SCREEN [facility] Start: 11-13-2025 DIABETES SCREEN DIABETES SCREEN [facility] Start: 05-04-2024 GFR test (Diabetes, CKD 3-4, OR last GFR 15-59) GFR test (Diabetes, CKD 3-4, OR last GFR 15-59) [facility] Start: 04-28-2024 Depression Screen Depression Screen [facility] Start: 04-10-2024 GFR test (Diabetes, CKD 3-4, OR last GFR 15-59) GFR test (Diabetes, CKD 3-4, OR last GFR 15-59) [facility] Start: 04-03-2024 GFR test (Diabetes, CKD 3-4, OR last GFR 15-59) GFR test (Diabetes, CKD 3-4, OR last GFR 15-59) [facility] Start: 03-17-2024 Depression Screen Depression Screen [facility] Start: 01-26-2024 Depression Screen Depression Screen [facility] Start: 12-24-2023 BP CONTROLLED (<130/80) BP CONTROLLE D (<130/80) [facility] Start: 11-28-2023 GFR test (Diabetes, CKD 3-4, OR last GFR 15-59) GFR test (Diabetes, CKD 3-4, OR last GFR 15-59) [facility] Start: 09-29-2023 Screening for malign ant neoplasm of breast Breast cancer screen [facility] Start: 07-28-2023 End: 07-28-2023 Patient encounter procedure Josué Joe MD Start: 07-26-2023 Depression Screen Depression Screen [facility] Start: 07-26-2023 DTaP/Tdap/Td vaccine (1 - Tdap) DTaP/Tdap/Td vaccine (1 - Tdap) [facility] Comment on above: Postponed from 05/26 (Patient Refused) Start: 07-26-2023 Shingles vaccine (1 of 2) Shingles vaccine (1 of 2) [facility] Comment on above: Postponed from 05/26 (Patient Refused) Start: 07-09-2023 COVID-19 Vaccine (2 - Booster for Mohit series) COVID-19 Vaccine (2 - Booster for Mohit series) [facility] Comment on above: Postponed from 03/09 (Not Indicated) Start: 06-26-2023 DIABETES SCREEN DIABETES SCREEN [facility] Start: 06-09-2023 Covid-19 Vaccine () Covid-19 Vaccine () [facility] Start: 06-09-2023 Influenza vaccination C [facility] Start: 05-09-2023 Influenza vaccination B [facility] Start: 04-28-2023 End: 04-28-2023 Patient encounter procedure 04/28/2023 Office Visit Internal Medicine Josué Joe MD [address] [place] [address], [place] [address] Josué Joe MD Start: 04-19-2023 End: 06-19-2023 CBC panel - Blood by Automated count CBC Lab Routine Crohn's disease of small and large intestines with complication (HCC) Expected: 04/19/2023 (Approximate), Expires: 06/19/2023 [facility] Work Phone: Comment on above: Expected: 04/19/2023 (Approximate), Expires: 06/19/2023 Start: 04-19-2023 End: 06-19-2023 Comprehensive metabolic 2000 panel - Serum or Plasma COMP METABOLIC PANEL Lab Routine Crohn's disease of small and large intestines with complication (HCC) Expected: 04/19/2023, Expires: 06/19/2023 [facility] Work Phone: Comment on above: Expected: 04/19/2023 , Expires: 06/19/2023 Start: 04-19-2023 End: 06-19-2023 CONFIRM BLOOD TYPE CONFIRM BLOOD TYPE Blood Bank Routine Crohn's disease of small and large intestines with complication (HCC) Expected: 04/19/2023, Expires: 06/19/2023 [facility] Work Phone: Comment on above: Expected: 04/19/2023 , Expires: 06/19/2023 Start: 04-19-2023 End: 06-19-2023 TYPE AND SCREEN,30 DAY TYPE AND SCREEN,30 DAY Blood Bank Routine Crohn's disease of small and large intestines with complication (HCC) Expected: 04/19/2023, Expires: 06/19/2023 [facility] Work Phone: Comment on above: Expected: 04/19/2023 , Expires: 06/19/2023 Start: 02-25-2023 Annual Wellness Visi t (AWV) Annual Wellness Visit (AWV) [facility] Start: 01-25-2023 End: 01-25-2023 Patient encounter procedure 01/25/2023 Office Visit Internal Medicine Josué Joe MD [address] [place] [address], [place] [address] Josué Joe MD Start: 10-09-2022 DEPRESSION ASSESSMENT DEPRESSION ASS ESSMENT [facility] Start: 09-16-2022 End: 11-16-2022 CBC W Auto Differential panel - Blood CBC + DIFF Lab Routine Anemia, unspecified type Expected: 09/16/2022, Expires: 11/16/2022 [facility] Work Phone: Comment on above: Expected: 09/16/2022 , Expires: 11/16/2022 Start: 09-16-2022 End: 11-16-2022 Cobalamin (Vitamin B12) [Mass/volume] in Serum or Plasma VITAMIN B12 BLOOD Lab Routine Anemia, unspecified type Expected: 09/16/2022, Expires: 11/16/2022 [facility] Work Phone: Comment on above: Expected: 09/16/2022 , Expires: 11/16/2022 Start: 09-16-2022 End: 11-16-2022 Comprehensive metabolic 2000 panel - Serum or Plasma COMP METABOLIC PANEL Lab Routine Anemia, unspecified type Expected: 09/16/2022, Expires: 11/16/2022 [facility] Work Phone: Comment on above: Expected: 09/16/2022 , Expires: 11/16/2022 Start: 09-16-2022 End: 11-16-2022 Ferritin [Mass/volume] in Serum or Plasma FERRITIN BLD Lab Routine Anemia, unspecified type Expected: 09/16/2022, Expires: 11/16/2022 [facility] Work Phone: Comment on above: Expected: 09/16/2022 , Expires: 11/16/2022 Start: 09-16-2022 End: 11-16-2022 Folate [Mass/volume] in Serum or Plasma FOLATE SERUM Lab Routine Anemia, unspecified type Expected: 09/16/2022, Expires: 11/16/2022 [facility] Work Phone: Comment on above: Expected: 09/16/2022 , Expires: 11/16/2022 Start: 09-16-2022 End: 11-16-2022 Iron and Iron binding capacity panel - Serum or Plasma IRON + TIBC Lab Routine Anemia, unspecified type Expected: 09/16/2022, Expires: 11/16/2022 [facility] Work Phone: Comment on above: Expected: 09/16/2022 , Expires: 11/16/2022 Start: 09-11-2022 End: 09-11-2023 Ct abdomen & pelvis w/contrast material CT ENTEROGRAPHY W IVCON Radiology Routine Diarrhea, unspecified type Expected: 09/11/2022, Expires: 09/11/2023 [facility] Work Phone: Comment on above: Expected: 09/11/2022 , Expires: 09/11/2023 Start: 08-28-2022 Creatinine measurement Creatinine mo [facility] Start: 08-28-2022 Potassium monitoring Potassium monit [facility] Start: 07-26-2022 End: 07-26-2022 Patient encounter procedure 07/26/2022 Office Visit Internal Medicine Josué Joe MD [address] [place] [address], [place] [address] Josué Joe MD Start: 07-24-2022 Annual Wellness Visi t (AWV) Annual Wellness Visit (AWV) [facility] Start: 07-09-2022 DTaP/Tdap/Td vaccine (1 - Tdap) DTaP/Tdap/Td vaccine (1 - Tdap) [facility] Comment on above: Postponed from 05/26 (Insurance / Financial) Start: 06-19-2022 Screening for malign ant neoplasm of cervix [facility] Start: 06-15-2022 Lipid panel Lipid screen [facility] Start: 06-09-2022 [facility] Start: 05-09-2022 Influenza vaccination Flu vaccine (# 1) [facility] Start: 03-12-2022 Creatinine measurement Creatinine mo nitoring [facility] Start: 03-12-2022 Potassium monitoring Potassium monit [facility] Start: 01-25-2022 End: 01-25-2022 Patient encounter procedure 01/25/2022 Office Visit Internal Medicine Josué Joe MD [address] [place] [id number] Josué Joe MD Start: 10-09-2021 [facility] Start: 09-29-2021 End: 09-29-2021 Patient encounter procedure 09/29/[address] [facility] Start: 08-27-2021 Annual Wellness Visi t (AWV) Annual Wellness Visit (AWV) [facility] Start: 07-23-2021 End: 07-23-2021 Patient encounter procedure 07/23/2021 Office Visit Internal Medicine Josué Joe MD [address] [place] [phone] Josué Joe MD Start: 07-18-2021 Annual Wellness Visi t (AWV) Annual Wellness Visit (AWV) [facility] Work Phone: Start: 06-29-2021 Colonoscopy COLONOSCOPY [facility] Start: 06-29-2021 COLORECTAL CANCER SCREENING COLORECTAL CANCER SCREENING [facility] Start: 06-09-2021 Influenza vaccination Flu vaccine (# 1) [facility] Work Phone: Start: 03-09-2021 COVID-19 Vaccine (2 - Booster for Mohit series) COVID-19 Vaccine (2 - Booster for Mohit series) [facility] Start: 02-09-2021 COVID-19 VACCINE (2 - Mohit risk 3-dose series) COVID-19 VACCINE (2 - Mohit risk 3-dose series) [facility] Start: 02-09-2021 COVID-19 VACCINE (2 - Mohit risk series) COVID-19 VACCINE (2 - Mohit risk series) [facility] Start: 07-27-2019 Screening for malign ant neoplasm of breast Breast cancer screen [facility] Start: 2016 Shingles Vaccine (1 of 2) Shingles Vaccine (1 of 2) [facility] Start: 2016 SHINGRIX VACCINE (1 of 2) SHINGRIX VACCINE (1 of 2) [facility] Start: 2011 COLOGUARD (FIT-DNA) COLOGUARD (FIT-D NA) [facility] Start: [address] COLONOGRAPHY [facility] Start: 2011 FECAL OCCULT BLOOD FECAL OCCULT BLOO D [facility] Start: 2011 Lipid 1996 panel - Serum or Plasma Lipid Screening [facility] Start: 2011 LIPID SCREEN LIPID SCREEN [facility] Start: 2011 Screening for malign ant neoplasm of colon [facility] Start: 2011 SIGMOIDOSCOPY SIGMOIDOSCOPY [facility] Start: 2006 Mammography [facility] Start: 1996 HPV TESTING HPV TESTING [facility] Start: 1996 Screening for malign ant neoplasm of cervix HPV (without or with Pap) [facility] Start: 1987 PAP TESTING PAP TESTING [facility] Start: 1985 DTaP/Tdap/Td vaccine (1 - Tdap) DTaP/Tdap/Td vaccine (1 - Tdap) [facility] Work Phone: Start: 1985 HEPATITIS A (1 of 2 - Risk 2-dose series) HEPATITIS A (1 of 2 - Risk 2-dose series) [facility] Start: 1985 Hepatitis A Vaccine (1 of 2 - Risk 2-dose series) Hepatitis A Vaccine (1 of 2 - Risk 2-dose series) [facility] Start: 1985 HEPATITIS B (1 of 3 - Risk 3-dose series) HEPATITIS B (1 of 3 - Risk 3-dose series) [facility] Start: 1985 SHINGRIX VACCINE (1 of 2) SHINGRIX VACCINE (1 of 2) [facility] Start: 1985 Urine microalbumin profile [facility] Start: 1984 ANNUAL PCP TEAM CRIMINAL INTELLIGENCE SPECIALIST PRIYANKA DISEASE VISIT ANNUAL PCP TEAM CHRONIC DISEASE VISIT [facility] Start: 1984 BP CONTROLLED (<130/80) BP CONTROLLE D (<130/80) [facility] Start: 1984 HIV SCREENING HIV SCREENING [facility] Start: 1984 MMR (1 of 2 - Risk 2-dose series) MMR (1 of 2 - Risk 2-dose series) [facility] Start: 1984 MMR Vaccine (1 of 2 - Risk 2-dose series) MMR Vaccine (1 of 2 - Risk 2-dose series) [facility] Start: 1978 Adult depression screening assessment DEPRESSION SCREENING [facility] Start: 1976 Meningococcal B Vaccine: Consider Based On Risk (1 of 4 - Increased Risk) Meningococcal B Vaccine: Consider Based On Risk (1 of 4 - Increased Risk) [facility] Start: 1976 MENINGOCOCCAL B: Consider based on risk (1 of 4 - Increased Risk Bexsero 2-dose series) MENINGOCOCCAL B: Consider based on risk (1 of 4 - Increased Risk Bexsero 2-dose series) [facility] Start: 1976 MENINGOCOCCAL B: Consider based on risk (1 of 4 - Increased Risk) MENINGOCOCCAL B: Consider based on risk (1 of 4 - Increased Risk) [facility] Start: 1972 PNEUMOCOCCAL (1 - PCV) PNEUMOCOCCAL (1 - PCV) [facility] Start: 1967 HEPATITIS A (1 of 2 - Risk 2-dose series) HEPATITIS A (1 of 2 - Risk 2-dose series) [facility] Start: 1966 Hepatitis B vaccine (1 of 3 - 3-dose series) Hepatitis B vaccine (1 of 3 - 3-dose series) [facility] End: 09-19-2022 CBC W Auto Differential panel - Blood [facility] Phone: Comment on above: Once for 1 Occurrenc es starting 09/19/2022 until 09/19/2022 End: 09-19-2022 Comprehensive metabolic 2000 panel - Serum or Plasma [facility] Phone: Comment on above: Once for 1 Occurrenc es starting 09/19/2022 until 09/19/2022 End: 09-19-2022 Ferritin [Mass/volume] in Serum or Plasma [facility] Phone: Comment on above: Once for 1 Occurrenc es starting 09/19/2022 until 09/19/2022 H&P for surgery H&P FOR SURGERY Procedures Routine Crohn's disease of small and large intestines with complication (HCC) Ordered: 12/30/2022 [facility] [employer] Work Phone: Comment on above: Ordered: 12/30/2022 End: 03-19-2024 Injection sinus tract diagnostic XR ILEOSTOMY INJECTION Radiology Routine 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) 1 Occurrences starting 02/18/2023 until 03/19/2024 [facility] Work Phone: Comment on above: 1 Occurrences starti ng 02/18/2023 until 03/19/2024 End: 09-19-2022 Iron and TIBC [facility] Phone: Comment on above: Once for 1 Occurrenc es starting 09/19/2022 until 09/19/2022 End: 12-06-2022 Manganese [facility] Phone: Comment on above: Once for 1 Occurrenc es starting 12/06/2022 until 12/06/2022 End: 01-18-2023 MISCELLANEOUS TESTING [facility] Phone: Comment on above: Once for 1 Occurrenc es starting 01/18/2023 until 01/18/2023 End: 01-26-2024 Radiologic exam colon single contrast study XR COLON SINGLE CONTRAST Radiology Routine Crohn's disease of small and large intestines with complication (HCC) 1 Occurrences starting 12/30/2022 until 01/26/2024 [facility] Work Phone: Comment on above: 1 Occurrences starti ng 12/30/2022 until 01/26/2024 REFER FOR ADMIT INTERVIEW REFER FOR ADMIT INTERVIEW Procedures Routine Crohn's disease of small and large intestines with complication (HCC) Ordered: 12/30/2022 [facility] Work Phone: Comment on above: Ordered: 12/30/2022 End: 01-18-2023 Vitamin B1 [facility] Work Phone: Comment on above: Once for 1 Occurrenc es starting 01/18/2023 until 01/18/2023 End: 09-19-2022 Vitamin B12 & Folate [facility] Comment on above: Once for 1 Occurrenc es starting 09/19/2022 until 09/19/2022 End: 01-18-2023 Vitamin B6 [facility] Work Phone: Comment on above: Once for 1 Occurrenc es starting 01/18/2023 until 01/18/2023 [facility] Immunizations Immunization Date Immunization Notes Care Provider Mary quiroz 07-19-2021 Seasonal, quadrivale nt, recombinant, injectable influenza vaccine, preservative free [facility] Work Phone: 07-19-2021 influenza virus vaccine, unspecified formulation Marce Hsu PA-C Work Phone: [facility] 01-12-2021 COVID-19, J&J, PF, 0 .5 mL Josué Joe MD [facility] Work Phone: 07-17-2020 influenza, injectabl e, quadrivalent, contains preservative Josué Joe MD Work Phone: [facility] Work Phone: 07-15-2019 influenza virus vaccine, unspecified formulation Josué Joe MD Work Phone: [facility] Work Phone: 07-15-2019 influenza, injectabl e, quadrivalent, contains preservative Josué Joe MD Work Phone: [facility] Work Phone: 08-09-2018 Influenza Vaccine, unspecified formulation Josué Joe MD Work Phone: [facility] 08-09-2018 influenza virus vaccine, unspecified formulation Josué Jeo MD Work Phone: [facility] [employer] Work Phone: 08-09-2018 influenza, injectabl e, quadrivalent, contains preservative Josué Joe MD Work Phone: [facility] 12-02-2015 influenza virus vaccine, unspecified formulation Josué Joe MD Work Phone: [facility] Work Phone: 08-15-2014 influenza virus vaccine, unspecified formulation Josué Joe MD Work Phone: [facility] [employer] 08-31-2009 novel [id number], preservative-free, injectable Josué Joe MD Work Phone: [facility] Work Phone: Payers Date Payer Category Payer Medicare DEVOTED MEDICARE DEVOTED HEALTH [id number] 2021-Present [phone] [address] JANA FLORENCE [address] [facility] [id number] 2021 Medicare [id number] .[id number] 2021 Unknown [id number] .7.3.455218.315 2021 Private Health Insurance [id number] [id number] .7.3.388789.315 2019 Medicare MEDICARE MEDICAR E PART A AND B [id number] 2019-Present [phone] [place] [address] [id number] 1.2.840.577838.1.13.239.2 .7.3.135610.315 1966 Unknown [id number] 2.16.840.1.825000.3.579.2 .175 1966 Unknown [id number] 2.16.840.1.619364.3.579.2 .175 1966 Unknown [id number] 2.16.840.1.313568.3.579.2 .593 1966 Unknown [id number] 2.16.840.1.526941.3.579.2 .173 1966 Unknown [id number] 2.16.840.1.026814.3.579.2 .173 1966 Unknown [id number] 2.16.840.1.782307.3.579.2 .173 1966 Unknown [id number] 2.16.840.1.765181.3.579.2 .173 1966 Unknown [id number] 2.16.840.1.490945.3.579.2 .173 1966 Unknown [id number] 2.16.840.1.127561.3.579.2 .173 1966 Unknown [id number] 2.16.840.1.946546.3.579.2 .173 1966 Unknown [id number] 2.16.840.1.627653.3.579.2 .173 1966 Unknown [id number] 2.16.840.1.999794.3.579.2 .173 1966 Unknown [id number] 2.16.840.1.711008.3.579.2 .1966 Unknown [id number] 2.16.840.1.995932.3.579.2 .173 1966 Unknown [id number] 2.16.840.1.103963.3.579.2 .1966 Unknown [id number] 2.16.840.1.536437.3.579.2 .173 1966 Unknown [id number] 2.16.840.1.297294.3.579.2 .1966 Unknown [id number] 2.16.840.1.565390.3.579.2 .173 1966 Unknown [id number] 2.16.840.1.698807.3.579.2 .1966 Unknown [id number] 2.16.840.1.470607.3.579.2 .173 1966 Unknown [id number] 2.16.840.1.816848.3.579.2 .1966 Unknown [id number] 2.16.840.1.974198.3.579.2 .173 1966 Unknown [id number] 2.16.840.1.513296.3.579.2 .173 1966 Unknown [id number] 2.16.840.1.519136.3.579.2 .1966 Unknown [id number] 2.16.840.1.221760.3.579.2 .173 1966 Unknown [id number] 2.16.840.1.826353.3.579.2 .173 1966 Unknown [id number] 2.16.840.1.386550.3.579.2 .173 1966 Unknown [id number] 2.16.840.1.171821.3.579.2 .1966 Unknown [id number] 2.16.840.1.408789.3.579.2 .173 1966 Unknown [id number] 2.16.840.1.370414.3.579.2 .1966 Unknown [id number] 2.16.840.1.280357.3.579.2 .1966 Unknown [id number] 2.16.840.1.555678.3.579.2 .1966 Unknown [id number] 2.16.840.1.665066.3.579.2 .1966 Unknown [id number] 2.16.840.1.251990.3.579.2 .1966 Unknown [id number] 2.16.840.1.788699.3.579.2 .1966 Unknown [id number] 2.16.840.1.432806.3.579.2 .1966 Unknown [id number] 2.16.840.1.798856.3.579.2 .1966 Unknown [id number] 2.16.840.1.605140.3.579.2 .1966 Unknown [id number] 2.16.840.1.868078.3.579.2 .1966 Unknown [id number] 2.16.840.1.758281.3.579.2 .1966 Unknown [id number] 2.16.840.1.167672.3.579.2 .1966 Unknown [id number] 2.16.840.1.883136.3.579.2 .1966 Unknown [id number] 2.16.840.1.388473.3.579.2 .173 1966 Unknown [id number] 2.16.840.1.700441.3.579.2 .173 1959 Unknown [id number] 1.2.840.605926.1.13.239.2 .7.3.870356.315 Social History Date Type Detail Facility Start: 01-20-2021 End: 04-19-2023 Tobacco smoking status AZIS Never smoker [facility] Phone: Start: 01-20-2021 End: 04-19-2023 Tobacco use and exposure Never used [facility] Start: 01-20-2021 End: 04-28-2023 Alcohol intake Lifetime non-drinker (finding) [facility] Phone: Start: 07-17-2020 End: 01-25-2023 History SDOH Alcohol Frequency 1 [employer] Work Phone: Start: 07-17-2020 History SDOH Alcohol Std Drinks 98 [facility] Phone: Start: 07-17-2020 End: 01-25-2023 History SDOH Social Connections Phone 5 [facility] Phone: Start: 07-17-2020 End: 01-25-2023 History SDOH Social Connections Get Together 2 [facility] Phone: Start: 07-17-2020 End: 07-26-2022 History SDOH Social Connections Living 3 [facility] Phone: Start: 07-17-2020 End: 07-26-2022 History SDOH Physical Activity DPW 0 [facility] Phone: Start: 06-19-2019 Alcohol Comment social [employer] Work Phone: Start: 1965 Sex Assigned At Not on file M [employer] Work Phone: Start: 09-02-2022 End: 11-12-2022 Exposure to SARS-CoV-2 (event) Not sure [facility] Start: 06-29-2020 End: 07-24-2023 Alcohol intake Current non-drinker of alcohol (finding) [facility] Start: 11-14-2022 History SDOH Financial 4 [facility] History of tobacco use Passive smoker [facility] Start: 02-15-2023 End: 04-19-2023 History of Social function [facility] Work Phone: Start: 02-15-2023 End: 04-19-2023 Tobacco use panel [facility] Work Phone: How hard is it for y ou to pay for the very basics like food, housing, medical care, and heating Not very hard [facility] Work Phone: (I/We) worried natalie er (my/our) food would run out before (I/we) got money to buy more. Never true [facility] Work Phone: In the past 12 month s, has lack of transportation kept you from medical appointments or from getting medications? No [facility] Work Phone: In the past 12 month s, was there a time when you were not able to pay the mortgage or rent on time? No [facility] Work Phone: Are you now , , , , never or living with a partner? [facility] [employer] How often to you hav e a drink containing alcohol? Never [facility] [employer] Do you feel stress - tense, restless, nervous, or anxious, or unable to sleep at night because your mind is troubled all the time - these days [OSQ] To some extent [employer] [facility] [employer] Medical Equipment Procedure Code Equipment Code Equipment Origin al Text Equipment Identifier Dates Catheter Archer [employer] 9.6fr 3.2mm 1.6mm 2 Branch 90cm Central Venous 1 - [id number] Start: 11-19-2022 Use as instructed Start: 11-23-2022 End: 08-16-2023 Comment on above: Use as instructed Catheter Archer Surecuff 9.6fr 3.2mm 1.6mm 2 Branch 90cm Central Venous 1 - [id number] Start: 03-07-2023 Clinical Notes 04-22-2017 to 08-16-[address] - 08/16/2023 10:06 AM Janell Miller MD - 08/16/2023 8:[address] - 08/15/2023 2:23 PM Edy Sandoval DO - 07/24/2023 10:30 AM EDTDischarge Instructions Note Date & Type Note [facility] 08-16-2023 Note [facility] 08-16-2023 Note [facility] 08-16-2023 History of Presen t illness Narrative [facility] ([facility]) Virtual Visit Follow-up This is a 58 year old female with underlying stricturing Crohn's disease of small and large intestine (dx 1978) s/p multiple abdominal surgeries/resections resulting in SBS (original date unknown) and chronic intestinal failure since 11/2022. She was previously followed by [facility] HPN, following recent stoma takedown 02/2023 she was referred to the [facility] at discharge. Patient was last seen in a virtual visit with Dr. Kaplan 06/06/23 where she reported doing well. At this time, PN was reduced from 6 to 5 days a week (+1L IVF on one PN off day). Since this time, PN has been further weaned to 3 days wk (reduced from 5 to 4 d/wk on 06/22/23, and from 4 to 3 d/wk on 08/07/23). Patient sent a [facility] message on 07/05/23 stating she is no longer taking Imodium and codeine and was instead taking liquid marijuana. She reports ongoing diarrhea w/o cramping but reported rectal pain. Dr. Kaplan suggested the patient try increasing the citrucell caps or psyllium fiber to increase stool bulk. Patient saw GI on 07/21/23 who noted plan to start Skyrizi, CTE/MRE in 3-6 months and scope in 6-12 months. Patient saw [facility] on 07/24/23 (no recs noted). Today, the patient reports doing well with recent reduction in PN frequency. She is no longer taking bowel stoppers and states the medical marijuana has helped to reduce her stool output. She reports not yet starting Skyrizi because she has to have a TB test first. Patient has been on home PN since 11/2022 for a condition of SBS. Plans are to continue with PN until patient transitions to enteral nutrition. Patient reports no problems with TPN infusions at this time. Patient reports no fevers, chills or SOB during infusions. Patient's right sided 2 lumen Archer catheter was placed 03/07/23 with the tip terminating in the RA per placement report. Patient reports No swelling, tenderness, redness, or drainage at the catheter exit site. Does patient have homecare nursing? YES If not attending this visit virtually, patient would travelled via automobile. Patient lives in [place]. Intestinal Surgical History: 04/20/23: Ileostomy closure 11/13/22: Ex lap, resection of ileocolic anastomosis, stricturoplasty, DLI, right STC 11/19/02: Laparoscopic cholecystectomy Multiple previous resections/Ex laps - last 1993 Intestinal Anatomy: Per surgical history: intact stomach, duodenum, ~110 cm SB to 50% of colon (ileo-transverse anastomosis) , no ICV, + rectum,+ anus. Co-morbidities: HPN 11/2022 - present CRBSI: 03/02/23: unknown bug - possible contamination Liver Bx 11/2022: moderate macrovesicular steatosis; chronic elevated LFT's Multiple SERENITY H/o DVT Intake: Appetite is fair. She tries to eat 3 meals with a starch at each daily. She has been eating more candy recently d/t but otherwise doesn't eat a lot of simple sugar. She recently ran out of Drip Drop and has been drinking regular gatorade. Daily fluid intake is 5L/day. Patient denies dehydration symptoms even on days she does not infuse PN or IVF. This is not nutritionally adequate and the patient relies on PN for nutritional support. Diet recall: Breakfast: muffin Lunch: chicken sandwich Dinner: meat + starch Snacks: Gummy bears Beverages: water (135 oz), gatorade (20 oz), coffee (8 oz) PN/IV/EN: Patient takes 2L of PN over 12hr 3 days per week. This includes 85 g AA and 228 g dextrose per bag. She receives 500 mL SMOF ILE 2x/wk. Averaged calories are 764 kcals/d. She infuses 1L 1/2NS once weekly on PN off day. Extra IVF: She does not have or use extra hydration bags. This is managed by [facility] HPN/Dr Kaplan Home Care: [facility] P: [phone] F: [phone] IV Pharmacy: [facility], , and Output: Urine output is not measured but is estimated to be adequate in volume. Patient reports having 7 BM/day (increased from previous report of 5-6 BM/d). Stools start as large in volume and reduce throughout the day. She reports stools are becoming more formed in consistency and are no longer immediately following meals. Laboratory: Lab Collected Date 07/24/2023 07/03/2023 Lab Source [facility] Na (mEq) 140 137 K (mEq) 4 3.7 Cl (mEq) 100 107 CO2 (mmol/L) 29 23 BUN (mg/dL) 30? 31? Creatinine (mg/dL) 0.7 0.84 Glucose (mg/dL) 139? 131? Calcium (mg/dL) 9.7 8.5 Total Protein (g/dL) 8.1 7.4 Alb (g/dL) 4.3 3.3 AST (SGOT, U/L) 18 19 Alk Phos (g/dL) 153? 120 Total Bili (mg/dL) 0.9 1.1 ALT (U/L) 17 19 Mg (mg/dL) 2 2 PO4 (mg/dL) 3.5 3 WBC (K/uL) 8.9 10.6 Hgb (g/dL) 11.6? 10.1? Hct (%) 37.1 29.9? MCV (fL) 86.5 82 RDW (%) 14.1 14.2 Platelet (K/uL) 291 312 Pro-Time (sec) Lab Collected Date 07/24/2023 07/24/2023 06/19/2023 06/06/2023 01/25/2023 01/02/2023 Lab Source [facility] Vitamin A (ug/dL) Vitamin E (ug/dL) Vitamin D 25 (ng/mL) 39.4 Vitamin B6 (ug/L) 29.4 Vitamin B12 (pg/mL) 756 Zinc (ug/dL) 153.9? Manganese (ug/dL) 8.4 Copper (ug/dL) 124.4 Free Copper Serum (ug/dL) Selenium (ug/L) 149.2 Chromium (ug/dL) 2.8 Phospholipid Fatty Acids 0.011 Triglycerides (mg/dL) 92 C-Reactive Protein (mg/dL) MMA (nmol/L) 0.37 04/24/23: Vitamin B1: 94.4 WNL Medications: Prior response to CGRT therapy: ORS: Previously used Drip Drop but ran out. Now using undiluted gatorade. Verbal edu provided today. Benefiber: Tried - caused constipation and mild obstructive sx. Plan to retrial citrucel. Imodium: previously used 4 mg QID but stopped because she thought it made stooling worse. Lomotil: never started d/t [place] Codeine: 30 mg TID - helping some, not timing correctly. No longer taking. Tincture of Opium: never tried Pancreatic Enzymes: never tried Probiotics: never tried Antimicrobials: not for SIBO Antisecretory: n/a Bile acid binding resin: never tried Growth Hormone: n/a GLP2: never tried I have reviewed allergies and medications. PAST MEDICAL HISTORY Diagnosis Date Crohn's disease (HCC) History of DVT (deep vein thrombosis) 04/19/2023 Medical marijuana use 04/19/2023 Regional enteritis of small intestine (HCC) Severe pre-eclampsia, antepartum Steroid-induced avascular necrosis of knee PAST SURGICAL HISTORY Procedure Laterality Date PAST SURGICAL HISTORY OF 1992,1993 ileostomy reversal PAST SURGICAL HISTORY OF 2002 galbladder PAST SURGICAL HISTORY OF 1994,1997 c-sections PAST SURGICAL HISTORY OF left breast reduction PAST SURGICAL HISTORY OF 2008 right breast reduction PAST SURGICAL HISTORY OF 2004 sinus surgery Anthropometrics: Height: 147.3 cm (4' 10 ) Weight: no weight today (08/16/23); 102 lb (08/09/23 pt reported); 102 lb (07/24/23); 101 lb (07/03/23); 101 lb (06/06/23); 105 lb (02/21/23) Usual weight: 98-102 lb per pt Goal weight: 100 lb BMI 21 kg/m2 - normal Weight change: Stable weight. Estimated Daily Nutritional Needs: 5480-8654 kcals/day = 30 - 35 kcals/kg dosing weight 70-90 g protein/day = 1.5-2.0 g/kg dosing weight Nutrition Focused Physical Exam: Unable to perform exam due to: virtual visit. Will re-attempt during next in person office visit reassessment. 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 Oral Rehydration Solution (ORS): aim for 1.5-2 L sipped between meals. If using gatorade, patient instructed to mix 1:1 with water. She denied need for ORS handout. Supplemental Fiber: Trial Citrucel 1-2 servings per day (capsules) PN: - Reduce PN volume from 2 to 1.2L with next shipment. Continue 3 days a week infusion. - Macronutrient changes per HPN - Continue 1L IVF once weekly. - Patient to request extra prn IVF bags. Vitamin & Mineral Supplements: - Continue Tralement + 0.3 mg Cu. No MVI in PN since January, d/t elevated B1 and B6 with sx (neuropathy in both hands/fingers) - Start chewable multivitamin daily (Example: Forvia) - Continue Calcium + Vitamin D3 once daily Probiotics: taking daily Other: zofran prn Labs (managed by HPN): routine labs per HPN. CRP and TE due 09/04/23. Will add vitamins A and E to next lab draw. Patient Group: CGRT + HPN Follow Up: Return to clinic in [address] Kaplan and RD. Signed by: Fany Phan RD Date: August 16, 2023 Images from the original note were not included. SMALL BOWEL DISEASES AND NUTRITION FOLLOW-UP VISIT Date of direct communication: 08/16/2023 [x] I have communicated my name and active licensure. The patient's identity and physical location were verified at the time of this visit. Either the patient or their legal client support representative has been informed of the risks and benefits of -- and alternatives to -- treatment through a remote evaluation and consents to proceed with the evaluation remotely. Patient consented to video visit. Assessment IMPRESSION: Elvira Syed is a 58 year old female with a history of stricturing enterocolonic Crohn's disease diagnosed in 1977 status post multiple surgical resections, most recently ileocolonic anastomotic resection, stricturoplasty, and diverting loop ileostomy ~90cm distal to LOT November 2022. She had ileostomy takedown 04-20-2023. Current anatomy is ~110cm proximal small bowel anastomosed to proximal transverse colon. She has been on TPN for nutrition support after surgery 2-2022. Goal is to wean off TPN completely, which will require a pretty sustained diet/lifestyle/medication management plan and also Crohns disease in remission to support. DIAGNOSTIC ISSUES AND PLAN: #) Short bowel syndrome #) High output ileostomy -Try to adhere to diet/lifestyle strategies for SBS without colon -Oral rehydration solution as the beverage of choice, sipped between meals - can water down Gatorade 1:1 -Continue to wean down TPN --> reduce volume to 1200cc -Try Citrucel as a soluble fiber to form up stools as it is a little less gassy than the Benefiber. 2 capsules twice a day -Ability to wean off TPN will depend on ability to eat and drink sufficiently to meet her needs with short gut as well as having Crohns disease in remission. -Start MVI with mineral supplement daily, eg Flintstones or Forvia chewable #) Therapeutic drug (TPN) monitoring -Continue standard monitoring #) Attn to central catheter (Archer) -Current Archer functioning without problems #) Crohns disease -Follows with Dr Christensen, planning to start Skyrizi once TB test is done FOLLOW-UP: 2 months or sooner if needed Janell Kaplan MD 08/16/2023 Staff [employer] Real [employer] Director, [facility] [place] PRIMARY PROBLEM: short bowel syndrome, on TPN INTERVAL HISTORY: -Continues on TPN --> weaned down to 3 days a week -Eating more, paying more attention to eat starch -Yesterday B muffin, L chicken sandwich from [employer], D chips -Usual dinner would be meat, starch, veg -Appetite is still limited, needs to force herself to eat -Eating some gummies as snacks from [employer] -Drinking 135 oz water per day, 20 oz Gatorade per day, cup of coffee in am -Stopped the drip drop -Medical MJ helpful to reduce diarrhea, thicker stools -Currently with 7 BM's per day, volumes are smaller -More BM's with strenuous activity -Urine output has been good, even on non-TPN/non-hydration days -Just moved into a new house - busy times! -Off the Imodium and codeine. Thought it was making it worse. -Wants to try the fiber again too. Suggested capsules for ease of use -Takes calcium with D daily, also on probiotics. -No MVI/mineral supplement -Needs TB test done before starting Skyrizi -No problems with central line -No symptoms of infection CURRENT NUTRITION SUPPORT: TPN: 2000 ml volume over 12 hours 3 days per week with 1 hour ramp up and 2 hour down 85 g amino acids 228 g dextrose 100 g Smoflipid 2 days per week 8 mEq calcium gluconate 14 mEq mag sulfate 0 mEq potassium phosphate 24 mEq sodium phosphate 0 mEq potassium chloride 55 mEq potassium acetate 140 mEq sodium chloride 30 mEq sodium acetate 1 mL Tralement No MVI in the TPN IV hydration: 1/2 NS 1L over 1h over 4 hours on a non-TPN days 1/2 NS 1L over 4h prn for dehydration Weight history: 102 lbs last week Last Wt 07/24/23 : 46.5 kg (102 lb 9.6 oz) 05/18/23 : 45.8 kg (101 lb) 04/19/23 : 44.9 kg (99 lb) 04/19/23 : 44.9 kg (99 lb) 03/13/23 : 47.8 kg (105 lb 6.1 oz) CURRENT MEDICATIONS: Current Outpatient Medications Medication Sig Dispense Refill glucagon (GLUCAGEN) 1 mg/mL injection Inject 1 mg intravenously one time only for 1 dose. For MRI Enterography, Inject 1 mg intravenously, as directed. Slow push at the appropriate time during MRI Scan 1 Each 0 [START ON 08/22/2023] codeine 30 mg tablet Take 1 tablet by mouth three times daily for 30 days. Do not start before August 22, 2023. 90 tablet 0 codeine 30 mg tablet Take 1 tablet by mouth three times daily for 30 days. Do not start before July 23, 2023. 90 tablet 0 oxyCODONE IR (ROXICODONE) 5 mg immediate release tablet Take 1 tablet by mouth every 6 hours as needed. 10 tablet 0 acetaminophen (TYLENOL) 325 mg tablet Take 2 tablets by mouth every 6 hours as needed for pain. DULoxetine (CYMBALTA) 60 mg capsule Take 1 capsule by mouth once daily. fluticasone (FLONASE ALLERGY RELIEF) 50 mcg/actuation nasal spray Use 1 [place] in each nostril once daily as needed. calcium carbonate/vitamin D3 (CALTRATE-600 PLUS VITAMIN D3 ORAL) Take 1 tablet by mouth once daily. ondansetron (ZOFRAN) 4 mg tablet Take 4 mg by mouth every 8 hours as needed for nausea/vomiting. loperamide (IMODIUM A-D) 1 mg/7.5 mL oral liquid Take 30 mL by mouth four times daily as needed. 236 mL 1 Lancets lancets Use as instructed 100 Each 5 blood sugar diagnostic (BLOOD GLUCOSE TEST) test strip Use as instructed (Patient not taking: Reported on 07/24/2023) 50 Strip 5 traZODone (DESYREL) 50 mg tablet Take 100 mg by mouth daily at bedtime. Lactobacillus acidophilus (PROBIOTIC ORAL) Take 14 Billion Particle Units by mouth once daily. NIFEdipine ER (PROCARDIA XL) 30 mg 24 hr tablet Take 30 mg by mouth once daily. busPIRone HCl 7.5 mg tablet Take 15 mg by mouth twice daily. ALPRAZolam (XANAX) 0.25 mg tablet Take 0.25 mg by mouth as needed. 0 No current facility-administered medications for this visit. ALLERGIES: ALLERGIES Allergen Reactions Cipro [Ciprofloxaci* Methotrexate Other: See Comments Dizziness, Rash, brain fog/felt drunk Vancomycin Other: See Comments acute renal failure with vancomycin use February 2023 hospital admission PAST MEDICAL/SURGICAL HISTORY, SOCIAL HISTORY, AND FAMILY HISTORY: Reviewed and is unchanged aside from the changes documented in HPI. REVIEW OF SYSTEMS: ROS completed and negative outside of the systems documented in the HPI. INVESTIGATIONS: All available pertinent interval investigations were reviewed and were notable for: T:T 0.011 Triglycerides 92 Labs : CRP <3 Labs Manganese 8.4 Zinc 153 Copper 124 Selenium 149 Chromium 2.8 PHYSICAL EXAM: Limited with video visit. General: Appears healthy and well developed. Total time spent on this patient encounter today was >45 mins including: preparation for the visit, review and interpretation of records, direct discussion with the patient, physical examination, documentation, and co-ordination of care. Shared visit with Fany Phan RD. documented in this encounter [facility] 08-15-2023 Note [facility] 08-15-2023 History of Presen t illness Narrative Abstract moved to [facility] with Dr. Kaplan 08/16/23. Fany Phan RD, LD, [facility] ([facility]RT) documented in this encounter [facility] 08-03-2023 Miscellaneous Notes See MyChart response. documented in this encounter [facility] 07-24-2023 Note [facility] 07-24-2023 History of Presen t illness Narrative COLORECTAL SURGERY Post-Op Visit July 20, 2023 Elvira Syed returns for a post-operative visit after undergoing ileostomy closure , on 04/20/23. Her post-operative period was uncomplicated. She is tolerating diet with an improving appetite, stable weight, and energy level is improving . She has no specific complaints. Current pain medications: none Current bowel related medications: none Bowel movement frequency: multiple a day She is having 7-8 Bms a day , taking CBG supplement and it is helping her. Her weight is stable, she is not eating much. No appetite. She is doing THD for pain. Imodium cramps her , she will try citrucel and fiber per Dr. Kaplan recommendation. Current Outpatient Medications Medication Sig Dispense Refill acetaminophen (TYLENOL) 325 mg tablet Take 2 tablets by mouth every 6 hours as needed for pain. ALPRAZolam (XANAX) 0.25 mg tablet Take 0.25 mg by mouth as needed. 0 blood sugar diagnostic (BLOOD GLUCOSE TEST) test strip Use as instructed (Patient not taking: Reported on 07/24/2023) 50 Strip 5 busPIRone HCl 7.5 mg tablet Take 15 mg by mouth twice daily. calcium carbonate/vitamin D3 (CALTRATE-600 PLUS VITAMIN D3 ORAL) Take 1 tablet by mouth once daily. [START ON 08/22/2023] codeine 30 mg tablet Take 1 tablet by mouth three times daily for 30 days. Do not start before August 22, 2023. 90 tablet 0 codeine 30 mg tablet Take 1 tablet by mouth three times daily for 30 days. Do not start before July 23, 2023. 90 tablet 0 DULoxetine (CYMBALTA) 60 mg capsule Take 1 capsule by mouth once daily. fluticasone (FLONASE ALLERGY RELIEF) 50 mcg/actuation nasal spray Use 1 [place] in each nostril once daily as needed. glucagon (GLUCAGEN) 1 mg/mL injection Inject 1 mg intravenously one time only for 1 dose. For MRI Enterography, Inject 1 mg intravenously, as directed. Slow push at the appropriate time during MRI Scan 1 Each 0 Lactobacillus acidophilus (PROBIOTIC ORAL) Take 14 Billion Particle Units by mouth once daily. Lancets lancets Use as instructed 100 Each 5 loperamide (IMODIUM A-D) 1 mg/7.5 mL oral liquid Take 30 mL by mouth four times daily as needed. 236 mL 1 NIFEdipine ER (PROCARDIA XL) 30 mg 24 hr tablet Take 30 mg by mouth once daily. ondansetron (ZOFRAN) 4 mg tablet Take 4 mg by mouth every 8 hours as needed for nausea/vomiting. oxyCODONE IR (ROXICODONE) 5 mg immediate release tablet Take 1 tablet by mouth every 6 hours as needed. 10 tablet 0 traZODone (DESYREL) 50 mg tablet Take 100 mg by mouth daily at bedtime. No current facility-administered medications for this visit. ALLERGIES Allergen Reactions Cipro [Ciprofloxaci* Methotrexate Other: See Comments Dizziness, Rash, brain fog/felt drunk Vancomycin Other: See Comments acute renal failure with vancomycin use February 2023 hospital admission Ht 147.3 cm (4' 10 ) Wt 46.5 kg (102 lb 9.6 oz) BMI 21.44 kg/m Abdominal examination: soft, non-distended, and non-tender without masses or hernias. Wound is well healed. Anorectal: deferred Abrasive Grader Helper present: Yes Assessment Assessment: Elvira Syed is a 58 year old female who is 3 months status post ileostomy closure . Plan Plan: She is doing very well. Off TPN, drinking proteins supplements. She will discuss short gut management with Dr. Kaplan Follow up as needed. Edy No DO documented in this encounter [facility] 07-21-2023 Note [facility] 07-21-2023 Miscellaneous Notes Spoke to pt. She would like to have infusions done at [facility]. Therapy plan sent to MARLA Lutz to sign. Labs also pended for signature. Stephy Bradford RN Manager Strategic Partnerships, IBD Attempted to reach [facility] to inquire if they would be able to administer Skyrizi infusion for this pt who lives in [place]. Inquired to see what the process was in getting rx to them if able. My contact info left on Stephy Bradford RN Manager Strategic Partnerships, IBD documented in this encounter [facility] 07-21-2023 Note [facility] 07-21-2023 History of Presen t illness Narrative Virtual Follow Up Visit Provider Location: [facility] Patient Location: Patient Home or Place of Residence SUBJECTIVE Elvira Syed [id number] has requested a video telemedicine for follow up of Crohn's disease. Last seen 12/14/2022. IBD History (copied and updated from my prior notes) Ms. Syed, is a 58-year-old female with a long history of Crohn's disease diagnosed in 1977 and has had multiple surgical resections with the most recent in November 2022 when she underwent an ex lap with resection ileocolic anastomosis stricturoplasty and diverting loop ileostomy. She has been treated in the past with 6-MP monotherapy and then Remicade and initially did well but had issues with IV access. She was then switched to Humira and did well from a disease perspective but had chronic sinus infections and was eventually changed to Stelara and dose optimized every 6 weeks. She was on methotrexate in combination with ustekinumab with severe side effects so this was stopped. She then underwent surgery due to her severe stricturing though unclear if this was a stricture and prior to starting Stelara. Of note has also been on azathioprine in combination with Humira. Changes and test results since last visit: Continues to have frequency no blood. Still with some urgency and some leakage Still on TPN. Is eating and tolerating diet Gets some some skin sores that come and go. 04/20/2023 DLI reversal 11/13/2022 Exploratory laparotomy, resection of ileocolic anastomosis, stricturoplasty, diverting loop ileostomy, tap block, Ron-Cut liver biopsy Current Clinical Symptoms # of bowel movements daily: 5+ Consistency: loose Bloody bowel movements: no Urgency: no Abdominal pain: no Abdominal distention: no Nausea/vomiting: no Weight loss over last 3 months: no Diagnosis Crohn's Disease: Date of diagnosis (year): 1976 Phenotype Location affected: jejunum ileum Behavior: inflammatory fibrostenotic penetrating Perianal disease: no Prior Medications/Dates/Reason for Switch Surgery: Multiple small bowel resections most recent 11/13/2022 ex lap resection of ileocolic anastomosis stricturoplasty diverting loop ileostomy Systemic steroids last year: Has been on multiple courses over the years Enteric or rectal steroids last year: No Systemic 5-ASA: No Local 5-ASA: No Thiopurines: 6-MP as a monotherapy after diagnosis also has been on azathioprine this combination therapy Methotrexate: In combination with Stelara recently stopped due to side effects Biologics: Infliximab stopped due to lack of IV access Adalimumab stopped due to recurrent sinus infections Ustekinumab dose optimized to every 6 weeks with disease progression requiring surgery though unclear if disease was too far gone prior to starting Small molecules: No Vaccines if on biologic therapy (Instructed to avoid live vaccines): Immunization History Administered Date(s) Administered COVID-19 vaccine ([employer]) 01/12/2021 Current Outpatient Medications Medication Sig Dispense Refill acetaminophen (TYLENOL) 325 mg tablet Take 2 tablets by mouth every 6 hours as needed for pain. ALPRAZolam (XANAX) 0.25 mg tablet Take 0.25 mg by mouth as needed. 0 blood sugar diagnostic (BLOOD GLUCOSE TEST) test strip Use as instructed 50 Strip 5 busPIRone HCl 7.5 mg tablet Take 15 mg by mouth twice daily. calcium carbonate/vitamin D3 (CALTRATE-600 PLUS VITAMIN D3 ORAL) Take 1 tablet by mouth once daily. [START ON 08/22/2023] codeine 30 mg tablet Take 1 tablet by mouth three times daily for 30 days. Do not start before August 22, 2023. 90 tablet 0 [START ON 07/23/2023] codeine 30 mg tablet Take 1 tablet by mouth three times daily for 30 days. Do not start before July 23, 2023. 90 tablet 0 codeine 30 mg tablet Take 1 tablet by mouth three times daily for 30 days. Do not start before June 23, 2023. 90 tablet 0 DULoxetine (CYMBALTA) 60 mg capsule Take 1 capsule by mouth once daily. fluticasone (FLONASE ALLERGY RELIEF) 50 mcg/actuation nasal spray Use 1 [place] in each nostril once daily as needed. Lactobacillus acidophilus (PROBIOTIC ORAL) Take 14 Billion Particle Units by mouth once daily. Lancets lancets Use as instructed 100 Each 5 loperamide (IMODIUM A-D) 1 mg/7.5 mL oral liquid Take 30 mL by mouth four times daily as needed. 236 mL 1 NIFEdipine ER (PROCARDIA XL) 30 mg 24 hr tablet Take 30 mg by mouth once daily. ondansetron (ZOFRAN) 4 mg tablet Take 4 mg by mouth every 8 hours as needed for nausea/vomiting. oxyCODONE IR (ROXICODONE) 5 mg immediate release tablet Take 1 tablet by mouth every 6 hours as needed. 10 tablet 0 traZODone (DESYREL) 50 mg tablet Take 100 mg by mouth daily at bedtime. No current facility-administered medications for this visit. ALLERGIES Allergen Reactions Cipro [Ciprofloxaci* Methotrexate Other: See Comments Dizziness, Rash, brain fog/felt drunk Vancomycin Other: See Comments acute renal failure with vancomycin use February 2023 hospital admission PAST SURGICAL HISTORY Procedure Laterality Date PAST SURGICAL HISTORY OF 1992,1993 ileostomy reversal PAST SURGICAL HISTORY OF 2002 galbladder PAST SURGICAL HISTORY OF 1994,1997 c-sections PAST SURGICAL HISTORY OF left breast reduction PAST SURGICAL HISTORY OF 2008 right breast reduction PAST SURGICAL HISTORY OF 2004 sinus surgery Review of Systems: GENERAL:No weight loss, malaise or fevers HEENT:Negative for frequent or significant headaches, No changes in hearing or vision, no nose bleeds or other nasal problems NECK:Negative for lumps, goiter, pain and significant neck swelling RESPIRATORY: Negative for cough, hemoptysis, wheezing, COPD, dyspnea or shortness of breath CARDIOVASCULAR: Negative for chest pain, leg swelling, hypertension, CHF or palpitations GASTROINTESTINAL: See HPI GENITOURINARY: No history of dysuria, frequency or incontinence SECURITY DOOR INSTALLER: Negative for abnormal vaginal bleeding, abnormal vaginal discharge MUSCULOSKELETAL: Negative for joint pain or swelling, back pain or muscle pain NEUROLOGIC:Negative for focal numbness or weakness, headaches and dizziness or syncope. SKIN:Negative for lesions, rash, and itching PSYCHIATRIC: Negative for sleep disturbance, mood disorder and recent psychosocial stressors. HEMATOLOGIC/LYMPHATIC/IMMUNOLOGI C:Negative for prolonged bleeding, bruising easily or swollen nodes ENDOCRINE: Negative for cold or heat intolerance, polyuria, polydipsia and goiter The remainder of the ROS was negative. PHYSICAL EXAMINATION General: alert and appropriate, in no distress and well-hydrated, well nourished , Head: normocephalic, no abnormality or lesion noted, Eyes: visual acuity is grossly normal, no injection,, and EOMI, Oropharynx: moist mucus membranes, no tonsillar hypertrophy/exudate, uvula midline and pharynx non-erythematous, lips, teeth and gums are without obvious lesion, Neck: full ROM, no cervical LNs noted, Respiratory: breathing non-labored, and no grunting/flaring/retractions, Chest: equal chest rise with normal respiratory effort, Abdomen: flat appearing. Visible protrusions or hernias: No Incisions/scars: None Areas of pain/tenderness: Denies Skin: no rash noted, Neuro: Patient seen sitting with normal appearing strength and coordination. No focal motor deficits. Psych: Appropriate mood and interaction Most recent labs: CBC: WBC (k/uL) Date Value 04/22/2023 7.64 Hematocrit (%) Date Value 04/22/2023 29.9 (L) MCV (fL) Date Value 04/22/2023 90.6 Platelet Count (k/uL) Date Value 04/22/2023 283 Lymphocytes % (%) Date Value 04/22/2023 26.3 Hepatic Function Panel: Albumin (g/dL) Date Value 04/21/2023 3.4 (L) Bilirubin, Total (mg/dL) Date Value 04/21/2023 0.9 Bilirubin, Conjugated (mg/dL) Date Value 04/21/2023 0.3 (H) Alkaline Phosphatase (U/L) Date Value 04/21/2023 116 AST (U/L) Date Value 04/21/2023 31 ALT (U/L) Date Value 04/21/2023 33 Protein, Total (g/dL) Date Value 04/21/2023 6.0 (L) CRP: CRP Date Value Ref Range Status 04/23/2023 1.8 (H) <0.9 mg/dL Final No results found for: QTBGOLD Interpretation (Hep Remote Pnl) Date Value Ref Range Status 07/02/2004 Final These results are negative for previous exposure to the hepatitis B and C Comment: viruses. No results found for: TBTEST No results found for: PTMPT No results found for: FOLATE No results found for: B12 Iron Date Value Ref Range Status 11/13/2022 129 41 - 186 ug/dL Final TIBC Date Value Ref Range Status 11/13/2022 260 232 - 386 ug/dL Final Vitamin D 25 Hydroxy Date Value Ref Range Status 07/02/2004 59.7 Final Comment: (NOTE) UNIT OF MEASURE: ng/mL NORMAL RANGE: 10.0-60.0 REFERENCE RANGE for Vitamin D (25-hydroxy): Greater than 20 ng/mL . . . . . Vitamin D sufficiency 10 - 20 ng/mL . . . . . . . . . Vitamin D insufficiency Less than 10 ng/mL . . . . . . Vitamin D deficiency This test was performed using a modified kit approved by the U.S. Food and Drug Administration (FDA). The modification involves one or more of the following: a) media or materials different than those specified in the kit, b) testing was performed on specimen types not specified on the kit insert and/or c) the test procedure has been modified from that provided on the kit insert. The modified test kit has not been cleared or approved by the FDA. The performance characteristics of this test were established through validation by [facility], which is regulated under the Clinical Laboratory Improvement Amendments of 1988 ( CLIA ) as qualified to perform high complexity clinical testing. @ Test Performed By: [facility] [address] [place] [id number] CLIA #[id number] Assessment IMPRESSION (as copied and updated from my / note and reflects medical decision making today): 57-year-old female with a long history of Crohn's disease diagnosed in 1977 and has had multiple surgical resections with the most recent in November 2022 when she underwent an ex lap with resection ileocolic anastomosis stricturoplasty and diverting loop ileostomy. She has been treated in the past with 6-MP monotherapy and then Remicade and initially did well but had issues with IV access. She was then switched to Humira and did well from a disease perspective but had chronic sinus infections and was eventually changed to Stelara and dose optimized every 6 weeks. She was on methotrexate in combination with ustekinumab with severe side effects so this was stopped. She then underwent surgery due to her severe stricturing though unclear if this was a stricture and prior to starting Stelara. Of note has also been on azathioprine in combination with Humira. She presents today as a routine health operative virtual follow-up. Continues to have frequency with no blood some urgency some leakage still TPN eating and tolerating diet. Does get some occasional skin rashes but they do not last a long time. Of note since I last saw her she underwent a ileocolic resection and stricturoplasty with DLI and subsequent reversal. We will now plan to start her on a new biologic which would be Skyrizi we will plan for follow-up labs and fecal calprotectin we will plan for CT enterography/MR enterography in 3 to 6 months with repeat colonoscopy in 6 to 12 months to fully evaluate. PLAN Plan to initiate skyrizi Follow up with labs and fecal alexsandra in 3 months Plan for CTE/MRE in 3-6 months and repeat scope in 6-12 months Medical Decision Making: Problems: Low: Stable chronic illness Data: Unique source(s) for external note(s) reviewed: 1 Unique test result(s) reviewed: 2 Unique test(s) ordered: 1 Risk: High: Drug therapy requiring intensive monitoring Medical Decision Making Level: 4 - Moderate I spent 25 minutes in the virtual visit, with more than 50% of the total [id number] time of the visit in counseling / coordination of care. I have confirmed and edited as necessary, the PFSH and ROS obtained by others. I will communicate my recommendations and prescriptions to the patient's primary care provider. Unrelated to E/M, telemedicine, or virtual visit service provided within previous 7 days. No E/M service or procedure anticipated within next 24 hours. I have communicated my name and active licensure. The patient's identity and physical location were verified at the time of this visit. Either the patient or their legal client support representative has been informed of the risks and benefits of -- and alternatives to -- treatment through a remote evaluation and consents to proceed with the evaluation remotely. Marce Hsu PA-C July 21, 2023 9:05 AM documented in this encounter [facility] 06-17-2023 Hospital Discharg e instructions Nasim Sanon PA-C - 06/17/2023 8:57 PM EDT Wash with gentle soap and water follow-up with primary care return to if any symptoms worsen or new symptoms well. Limit weight bearing. The following attachments cannot be sent through Care Everywhere.Abscess: Skin ([place])documented in this encounter [facility] 06-06-2023 Note [facility] 06-06-2023 Miscellaneous Notes I have reviewed the dosage, timing and amount of medication to be dispensed. I approve this prescription to be reviewed and signed by a Nutrition Support physician. Physician: Rosaura Refills requested by pt during virtual clinic visit today Requested Prescriptions Pending Prescriptions Disp Refills codeine 30 mg tablet 90 tablet 0 Sig: Take 1 tablet by mouth three times daily for 30 days. Do not start before August 22, 2023. codeine 30 mg tablet 90 tablet 0 Sig: Take 1 tablet by mouth three times daily for 30 days. Do not start before July 23, 2023. codeine 30 mg tablet 90 tablet 0 Sig: Take 1 tablet by mouth three times daily for 30 days. Do not start before June 23, 2023. Hoang Apodaca RD, CNSC documented in this encounter [facility] 06-06-2023 Note [facility] 06-06-2023 Note HNO ID: [id number] Author: James Crespo RD Service: ? Author Type: Registered Dietitian Type: Progress Notes Filed: 06/06/2023 4:07 PM Note Text: Abstract has been moved to virtual visit with Dr Kaplan on 06/06/23. [facility] History of Presen t illness Narrative Abstract has been moved to virtual visit with Dr Kaplan on 06/06/23. Hoang Apodaca RD, CNSC documented in this encounter [facility] 05-29-2023 Miscellaneous Notes Can you help her get scheduled to discuss restarting meds Marce Hsu PA-C Called pt and left a VM message for pt to call and schedule an appt with Malaika Hsu PA-C magali to re-start her medications. Scheduling number left. Also left a MyChart message for pt as well. Corry Ross RN May 29, 2023 12:04 PM documented in this encounter [facility] 05-18-2023 Note [facility] 05-18-2023 Instructions Melba Reina APRN.INGOT SUPERVISOR - 05/18/2023 1:28 PM EDT Start transitioning into regular diet. Trying one new food a day. Start to slowly increase activity do not do any strenous activity or heavy lifting for 2 more months. Start fiber daily use the following formula. Use Benefiber Fiber POWDER (metamucil, benefiber, citrucelle) - 1/2 tsp of powder mixed in 4-8 ounces of liquid every morning x 1 week; increase 1 tsp of powder mixed in 4-8 ounces of liquid every morning x 1 week; then increase to 1 heaping tablespoon of powder mixed in 4-8 ounces of liquid x 1 week, indefinitely. Adjust dose as needed to achieve formed soft stool. Drink plenty of fluids to maintain regular bowel habits. Ask Nutrition at next visit about weaning off TPN. Wean off codeine first as you see bowel movements decrease. Call with any questions or concerns. documented in this encounter [facility] 05-18-2023 History of Presen t illness Narrative COLORECTAL SURGERY Post-Op Visit Elvira Syed returns for a post-operative visit after undergoing surgery, on 04/20/[address]. PREOPERATIVE DIAGNOSIS: Undesirable ileostomy POSTOPERATIVE DIAGNOSIS: Undesirable ileostomy OPERATION PERFORMED: Ileostomy reversal INDICATIONS: 57-year-old woman with longstanding history of Crohn's disease who underwent exploratory laparotomy, resection of ileocolic anastomosis, stricturoplasty, diverting loop ileostomy and liver biopsy on November 13, 2022. Presents today for reversal of loop ileostomy. She has not been on Biologics. She has been maintained on TPN, she has history of short gut with approximately 110 cm of small bowel. She presents today for ileostomy reversal OPERATIVE FINDINGS: Normal-appearing small bowel. Parastomal hernia Reason for Hospitalization 04/20/2023-04/23/2023: Elvira Syed is a 57 year old female with Crohn's disease (diagnosed 1977), on TPN at home, s/p multiple bowel resections, and most recently s/p ileocolonic anastomotic resection, stricturoplasty, and DLI (11/2022). She was recently admitted for bacteremia and acute renal failure on 03/02/23, but has since resolved. She presents to the hospital 04/20/23 for stoma closure with Dr. No. Hospital Course: Elvira Syed came to the hospital to have surgery with Edy No DO. Please see operative report for full details. Afterward, the patient was transferred to a regular nursing floor. Pain was controlled with oral and IV medication per ERAS protocol and her intake and output was closely monitored. Diet was advanced as tolerated. She was able to void independently prior to discharge. DVT prophylaxis was managed by Heparin 5000 unit(s) TID and intermittent compression stockings. Her electrolytes were monitored with daily labs and replaced as needed. Once the patient's pain was controlled with oral medication, GI soft diet was tolerated, and demonstrated appropriate bowel function, she was deemed fit for discharge. She will be discharged home on home TPN. The patient is asked to please follow up with Melba Reina CNP as scheduled. Her post-operative period was uncomplicated. She is tolerating diet with an improving appetite, stable weight, and energy level is improving . She has no specific complaints, except still has some issues with fatigue. She is having no pain with surgery, but has been having issues with waking up and having bilateral pain in her wrists. She is also on TPN still and is wondering when she will be able to wean from this as well. Lastly patient wants to know how to set up visit about re-starting Crohn's medication, as she has not heard anything from GI office. Bowel movements: daily x10 per day, no bleeding, no pain with bowel movement. Softer to liquid consistency. Bowel stoppers: imodium and codeine. Current diet: gi soft. N/V: no. F/C no. Incision/wound is doing well. Current Outpatient Medications Medication Sig Dispense Refill oxyCODONE IR (ROXICODONE) 5 mg immediate release tablet Take 1 tablet by mouth every 6 hours as needed. 10 tablet 0 acetaminophen (TYLENOL) 325 mg tablet Take 2 tablets by mouth every 6 hours as needed for pain. [START ON 05/24/2023] codeine 30 mg tablet Take 1 tablet by mouth three times daily for 30 days. Do not start before May 24, 2023. 90 tablet 0 DULoxetine (CYMBALTA) 60 mg capsule Take 1 capsule by mouth once daily. fluticasone (FLONASE ALLERGY RELIEF) 50 mcg/actuation nasal spray Use 1 [place] in each nostril once daily as needed. calcium carbonate/vitamin D3 (CALTRATE-600 PLUS VITAMIN D3 ORAL) Take 1 tablet by mouth once daily. ondansetron (ZOFRAN) 4 mg tablet Take 4 mg by mouth every 8 hours as needed for nausea/vomiting. loperamide (IMODIUM A-D) 1 mg/7.5 mL oral liquid Take 30 mL by mouth four times daily as needed. 236 mL 1 traZODone (DESYREL) 50 mg tablet Take 100 mg by mouth daily at bedtime. Lactobacillus acidophilus (PROBIOTIC ORAL) Take 14 Billion Particle Units by mouth once daily. NIFEdipine ER (PROCARDIA XL) 30 mg 24 hr tablet Take 30 mg by mouth once daily. busPIRone HCl 7.5 mg tablet Take 15 mg by mouth twice daily. ALPRAZolam (XANAX) 0.25 mg tablet Take 0.25 mg by mouth as needed. 0 [facility] SKIN PROTECTIVE PASTE Apply to affected area as needed (Apply to buttocks after bowel movements). 240 g 0 codeine 30 mg tablet Take 1 tablet by mouth three times daily for 30 days. Do not start before April 23, 2023. 90 tablet 0 apixaban (ELIQUIS) 5 mg tab(s) Take 1 tablet by mouth twice daily. (Patient not taking: Reported on 05/18/2023) 60 tablet 2 Lancets lancets Use as instructed 100 Each 5 blood sugar diagnostic (BLOOD GLUCOSE TEST) test strip Use as instructed 50 Strip 5 No current facility-administered medications for this visit. ALLERGIES Allergen Reactions Cipro [Ciprofloxaci* Methotrexate Other: See Comments Dizziness, Rash, brain fog/felt drunk Vancomycin Other: See Comments acute renal failure with vancomycin use February 2023 hospital admission Ht 147.3 cm (4' 10 ) Wt 45.8 kg (101 lb) BMI 21.11 kg/m Abdominal examination: soft, non-distended, and non-tender without masses or hernias. Wound is well healed. Stitch was protruding in which was removed today from skin without incident. Anorectal: perianal area intact. Slight excoriation from frequency of bowel movements. Patient encouraged to use cream daily to help with irritated skin, no fissure or hemorrhoids seen. Small skin tag present left anteriorly. Abrasive Grader Helper present: Yes, Cathryn Brownlee Assessment Assessment: Appetite: Eating and drinking well BMs: See HPI Incision/wound: well-healed Overall doing ok, patient encouraged to slowly transition into regular diet as well as slowly increase activity. She has returned to work and is doing well. Provider will reach out to GI about getting visit scheduled for re-starting Crohn's medication. Patient will start fiber supplement to see if she can start to slowly wean off her bowel stoppers. As far as TPN CORS will defer to nutrtiion team for when this can be stopped. Patient was also encouraged to follow up with PCP in regards to her bilateral wrist pain the morning to r/o any RA or OA. Patient will follow up as scheduled. Plan: Start transitioning into regular diet. Trying one new food a day. Start to slowly increase activity do not do any strenous activity or heavy lifting for 2 more months. Start fiber daily use the following formula. Use Benefiber Fiber POWDER (metamucil, benefiber, citrucelle) - 1/2 tsp of powder mixed in 4-8 ounces of liquid every morning x 1 week; increase 1 tsp of powder mixed in 4-8 ounces of liquid every morning x 1 week; then increase to 1 heaping tablespoon of powder mixed in 4-8 ounces of liquid x 1 week, indefinitely. Adjust dose as needed to achieve formed soft stool. Drink plenty of fluids to maintain regular bowel habits. Ask Nutrition at next visit about weaning off TPN. Wean off codeine first as you see bowel movements decrease. Call with any questions or concerns. Melba Reina APRN.INGOT SUPERVISOR documented in this encounter [facility] 04-23-2023 Note [facility] 04-23-2023 Note [facility] 04-22-2023 Note [facility] 04-21-2023 Note [facility] 04-20-2023 Note [facility] 04-20-2023 Note [facility] 04-19-2023 Note [facility] 04-19-2023 Note [facility] 04-19-2023 Note [facility] 04-19-2023 History of Presen t illness Narrative COLON AND RECTAL HISTORY AND PHYSICAL EXAMINATION SERVICE DATE: 04/05/2023 Primary Care Physician: Josué Joe MD Chief complaint: crohns disease, undesirable ileostomy HPI: Elvira Syed is a 57 year old female s/p Exploratory laparotomy, resection of ileocolic anastomosis, stricturoplasty, diverting loop ileostomy, tap block, Ron-Cut liver biopsy on 11/13/22 Did not start biologics. Reach out to [facility] about biologic treatment She has been on TPN and gained 10 lbs . Today 99 lbs ( from 90 lbs) , she is eating as well. Physical Exam: Ht 147.3 cm (4' 10 ) Wt 44.9 kg (99 lb) BMI 20.69 kg/m General: Alert and oriented Skin: Normal color, no rash, no lesions. HEENT: EOM, pupils equal, round and reactive. Cardiovascular: Normal S1 & S2, no rubs, murmurs or gallops. No JVD. Pulse regular. Lungs: Normal breath sounds, no wheezes or crackles. Abdomen: Soft, non-tender, no rigidity. Extremities: No deformity, no edema or tenderness, no joint swelling or clubbing. Neurological: Normal cognition and motor skills. Pulses: Carotid and radial pulses normal +2. Anorectal: Deferred Abrasive Grader Helper present: Yes Assessment Medical Decision Making: Assessment & Diagnosis: Elvira Syed is a 57 year old female with undesirable ileostomy There is no known pertinent medical condition which may affect helen-operative course Data Reviewed: Tests & Documents Reviewed/ordered: Review of prior notes from chart I have independently interpreted: xray I have discussed Elvira Syed's treatment plan and/or results with patient . Treatment plan: I have reviewed with the patient their current symptoms, changes since our last visit, the above listed documents and physical exam. Based on this, the following surgery is planned: ileostomy reversal . The risks, benefits and anticipated outcomes of the procedure, the risks and benefits of the alternatives to the procedure and the roles and tasks of the personnel to be involved were discussed with the patient and the patient consents to the procedure and agrees to proceed. Informed consent has been obtained. The following details surrounding surgery were discussed: Preoperative prep: No Bowel Prep Length of hospital stay: 3 -5 days Anticipated diet at time of discharge from the hospital: Regular and Low Residue Anticipated activity restrictions at time of discharge from the hospital: Lifting is restricted to 15 lbs for 6 weeks. Prior to surgery, the following consults have been requested: Anesthesia Prior to surgery, the following lab tests have been ordered: None Additional counseling: Patient given verbal and written preop instructions and voices comprehension and compliance. Risk of morbidity, mortality and/or complications of treatment plan: moderate documented in this encounter [facility] 04-19-2023 History of Presen t illness Narrative AMBULATORY PATIENT EDUCATION NOTE READINESS TO LEARN COGNITIVE ABILITY: Alert and oriented MOTIVATION TO LEARN: Eager FAMILY SUPPORT: High - Very involved in pt care INSTRUCTION PROVIDED TO: Patient and family member PATIENT LEARNS BEST BY: Written Instruction - Hand-outs Verbal Instruction FACTORS AFFECTING LEARNING: None PHYSICAL LIMITATIONS AFFECTING LEARNING: None LEARNING RESPONSE DIAGNOSIS: Crohn's disease TEACHING POINTS: Procedure / Surgery: Pre-op Teaching: Logistics / Protocols / Complication Prevention METHOD OF INSTRUCTION: Written instruction - handouts Verbal instruction PATIENT / FAMILY RESPONSE: Verbalizes understanding of: pre op check list, map/directions, NPO at midnight and arrival time/location given. Ileostomy closure packet given. FOLLOW-UP PLAN: Patient instructed to call with any further issues Electronically Signed By Sangeetha Muñiz RN in Department: COLORECTAL SURGERY documented in this encounter [facility] 04-19-2023 Instructions Leon Branham APRN.INGOT SUPERVISOR - 04/19/2023 12:37 PM EDT PATIENT PREOPERATIVE INSTRUCTIONS Edy No DO has scheduled you for your procedure at this surgery center: [facility] Scheduling Office: [phone] --[address] [place] [address]. Please read below carefully for your personalized instructions. Dietary Restrictions: - No solid food after midnight. - You may have 12 ounces of clear liquids (water, clear juices such as apple juice or gatorade, carbonated beverages, clear tea, black coffee, jello) until 2 hours before scheduled arrival at facility. - Formula must be stopped 6 hours prior to scheduled arrival at facility. Is Patient Diabetic:No Medications: Unless instructed differently below, stay on all of your medications until your surgery. Approved medications to take the morning of surgery with a sip of water: DULoxetine (CYMBALTA) NIFEdipine ER (PROCARDIA XL) busPIRone ALPRAZolam (XANAX) - Your pain medication may cause thinning of your blood. Please see directions for Blood Thinning Medications. If you start any new medications after today's visit, please contact the surgeon's office. Blood Thinning Medications: - Stop NSAIDS (Ibuprofen, Advil, Aleve, Motrin, Celebrex, Mobic, etc.) 7 days before surgery, as directed by your surgeon. - Stop Aspirin 7 days before surgery, as directed by your surgeon. - Stop Vitamin E, ALL multi-vitamins, herbals and dietary supplements 7 days before surgery. - You may take Tylenol (Acetaminophen) or any of your pain medications that do not contain aspirin or NSAIDS as needed. - Stop Eliquis as instructed by your prescribing physician. Patient states instructed to stop, last dose 04/13/23 Important Reminders: - Candy, mints, and tobacco products are NOT permitted the morning of surgery. - Hearing aids, dentures and glasses may be worn the morning of surgery. - NO jewelry, body piercings, makeup, hairpins or contacts are to be worn the day of surgery. If you develop symptoms such as a fever, cold, or flu, or have other changes to your health within TWO DAYS of scheduled surgery or the morning of surgery, please contact the surgery center above. Personal Belongings: -Please have photo ID and insurance cards. -If you do not have a copy of advance directives on file with us, please bring a copy with you on the day of surgery. - Leave ALL valuables and money at home or with family members. Arrival Time for Surgery: - To obtain your arrival time for surgery, call your physician's office the day before your surgery. - If your surgery is scheduled for Monday, call the Monday before. Your surgeon s energy scheduler will tell you what time to call the office. - If you have not reached the departmental energy scheduler by 5 P.M., call [phone] after 5 P.M. the day before your surgery. Please be aware that emergency situations arise, which may delay or change your surgical time. If this happens, we will notify you as soon as possible and regret any inconvenience. If you already have an Advance Directive, please fax a copy to [phone] or email to for it to be added to your chart. If you do not have an Advance Directive, you can find the appropriate form and more information at [email or web address]. We recommend that you complete the Advance Directive form found on the website and bring it with you the day of your surgery. It can be witnessed and scanned into your chart that day. Leon Branham APRN.MICHAEL documented in this encounter [facility] 04-19-2023 History and physical note HISTORY AND PHYSICAL EXAMINATION SERVICE DATE: 04/19/2023 SERVICE TIME: 12:46 PM PRIMARY CARE PHYSICIAN: Josué Joe MD REASON FOR VISIT: Elvira Syed is a 57 year old female who is scheduled for Procedure(s): CLOSURE ILEOSTOMY (N/A) at the request of Edy Bird DO for consultation. My final recommendation will be communicated back to the requesting physician by way of shared medical record or letter. Subjective The patient has the following: ACTIVE PROBLEM LIST Myalgia and Myositis, Unspecified Osteoporosis, Unspecified Crohn's Disease of Small and Large Intestines (Hcc) Essential Hypertension Anxiety Anemia Anemia of Renal Disease Iron Deficiency Anemia Crohn's Disease of Colon With Fistula (Hcc) Nicotine use disorder, F17.2 Malnutrition of Mild Degree (Hcc) Fibromyalgia Hypoalbuminemia Ileostomy in Place (Hcc) Postoperative Pain Coag Negative Staphylococcus Bacteremia Lft Elevation On Total Parenteral Nutrition (Tpn) Central Line Infection, Initial Encounter Central Line Complication Hyponatremia Hyperphosphatemia Atn (Acute Tubular Necrosis) (Hcc) Metabolic Acidosis Volume Depletion Positive Blood Cultures Short Gut Syndrome Seernity (Acute Kidney Injury) (Hcc) Acute Deep Vein Thrombosis (Dvt) of Brachial Vein of Left Upper Extremity (Hcc) Short Bowel Syndrome Feeding Difficulties History of Dvt (Deep Vein Thrombosis) Medical Marijuana Use COVID-19 Immunization Status Overdue - COVID-19 VACCINE (2 - Booster for Mohit series) Overdue since 03/09/2021 01/12/2021 Imm Admin: COVID-19 vaccine (MOHIT) Patient reports being fully vaccinated against COVID-19. Patient reports a prior COVID-19 infection, with an infection date of 2019. CHIEF COMPLAINT: Pre-Op Visit HPI: 57 year old female who has Crohn's disease that has been present since 1977 seen for PACC. Patient was seen for PACC the day before scheduled procedure. She has Crohn's disease which was diagnosed in 1977. History of multiple bowel resections including ileocolonic anastomotic resection, stricturoplasty, and DLI in 11/2022. Scheduled for CLOSURE ILEOSTOMY on 04/19/23. She is currently on TPN for 12 hours at night. Denies any fever, chills, nausea, vomiting, SOB, dizziness, lightheadedness, palpitations, syncope, chest pain or abdominal pain. She has elected to proceed with the surgical procedure. REVIEW OF SYSTEMS: General: No weight loss, malaise or fevers. Neurological: Negative for: seizures, TIA and strokes. Respiratory: Positive for: prior COVID-19 infection. Date of COVID-19 infection: 2019. Negative for: asthma, bronchitis, COPD, current cough, dyspnea, orthopnea, pneumonia within 6 weeks, tobacco use, URI < 2 weeks and obstructive sleep apnea. Cardiovascular: Positive for: anticoagulation therapy (Eliquis, last dose taken 04/13/23), DVT/PE (+ DVT LUE on Eliquis) and hypertension Negative for: AICD/PPM, arrhythmia, atrial fibrillation, CAD, chest pain, CHF, hyperlipidemia and murmur/valvular heart disease. GI: See HPI. + Ileostomy in place Positive for: inflammatory bowel disease Negative for: abdominal pain, colon cancer, diverticulitis, GERD, hepatitis, liver disease, pancreatitis and rectal cancer. : No history of dysuria, frequency or incontinence, stones or chronic kidney disease. No difficulty urinating, nocturia > 1 time per night or hematuria. 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 Endocrine: No history of diabetes. Has not taken steroids within the past 30 days. No history of endocrinological symptoms or problems. Hematology: Positive for: anemia and anemia associated with chronic kidney disease. Oncology: No history of CA metastasis, chemo within 30 days, or radiotherapy within 90 days. No history of oncological symptoms or problems. Psych: Positive for: anxiety. Negative for: bipolar disorder, depression and drug dependency. Musculoskeletal: Negative for joint pain or swelling, back pain or muscle pain. Skin: Negative for lesions, rash and itching. PAST MEDICAL HISTORY Diagnosis Date Crohn's disease (HCC) History of DVT (deep vein thrombosis) 04/19/2023 Medical marijuana use 04/19/2023 Regional enteritis of small intestine (HCC) Severe pre-eclampsia, antepartum Steroid-induced avascular necrosis of knee PAST SURGICAL HISTORY Procedure Laterality Date PAST SURGICAL HISTORY OF 1992,1993 ileostomy reversal PAST SURGICAL HISTORY OF 2002 galbladder PAST SURGICAL HISTORY OF 1994,1997 c-sections PAST SURGICAL HISTORY OF left breast reduction PAST SURGICAL HISTORY OF 2008 right breast reduction PAST SURGICAL HISTORY OF 2004 sinus surgery FAMILY HISTORY Problem Relation Age of Onset Coronary Artery Disease Mother Hypertension Mother Lipids Mother Stroke Mother Asthma Father GI Father Social History Tobacco Use Smoking status: Never Passive exposure: Current Smokeless tobacco: Never Substance Use Topics Alcohol use: No Drug use: Yes Comment: Medical Marijuana(last used 04/19/2023) per pt 04/19/2023 Prior to Admission medications as of 04/19/23 1234 Medication Sig Last Dose Taking codeine 30 mg tablet Take 1 tablet by mouth three times daily for 30 days. Do not start before May 24, 2023. Taking Yes DULoxetine (CYMBALTA) 60 mg capsule Take 1 capsule by mouth once daily. Taking Yes apixaban (ELIQUIS) 5 mg tab(s) Take 1 tablet by mouth twice daily. Taking Yes fluticasone (FLONASE ALLERGY RELIEF) 50 mcg/actuation nasal spray Use 1 [place] in each nostril once daily as needed. Taking Yes calcium carbonate/vitamin D3 (CALTRATE-600 PLUS VITAMIN D3 ORAL) Take 1 tablet by mouth once daily. Taking Yes ondansetron (ZOFRAN) 4 mg tablet Take 4 mg by mouth every 8 hours as needed for nausea/vomiting. Taking Yes traZODone (DESYREL) 50 mg tablet Take 100 mg by mouth daily at bedtime. Taking Yes Lactobacillus acidophilus (PROBIOTIC ORAL) Take 14 Billion Particle Units by mouth once daily. Taking Yes NIFEdipine ER (PROCARDIA XL) 30 mg 24 hr tablet Take 30 mg by mouth once daily. Taking Yes busPIRone HCl 7.5 mg tablet Take 15 mg by mouth twice daily. Taking Yes ALPRAZolam (XANAX) 0.25 mg tablet Take 0.25 mg by mouth as needed. Taking Yes codeine 30 mg tablet Take 1 tablet by mouth three times daily for 30 days. Do not start before April 23, 2023. codeine 30 mg tablet Take 1 tablet by mouth three times daily for 30 days. loperamide (IMODIUM A-D) 1 mg/7.5 mL oral liquid Take 30 mL by mouth four times daily as needed. Lancets lancets Use as instructed blood sugar diagnostic (BLOOD GLUCOSE TEST) test strip Use as instructed Medication Comments documented by Layne Redding on 07/22/2016 at 1026. Pt states that medication is current. ALLERGIES Allergen Reactions Cipro [Ciprofloxaci* Methotrexate Other: See Comments Dizziness, Rash, brain fog/felt drunk Vancomycin Other: See Comments acute renal failure with vancomycin use February 2023 hospital admission Objective PHYSICAL EXAM: General: alert and oriented and healthy appearance. Skin: normal color, no rash or lesions. Right Chest Archer. HEENT: pupils equal round and pupils reactive to light. Cardiovascular: regular rate and rhythm, normal S1 and S2, no rub, murmurs, or gallop. Respiratory: normal breath sounds, no wheezes or crackles. No chest wall deformity or tenderness. Abdomen: bowel sounds present, soft and stoma present. Extremities: no deformity, no edema or tenderness, no joint swelling or clubbing. Neurological: normal cognition and motor skills. Gait normal. No weakness or sensory deficit. PAIN ASSESSMENT: VITALS: BP 131/71 Pulse 66 Temp (Src) 97.7 (Oral) Ht 4' 10 (1.47m) Wt 99 lb (44.9kg) SpO2 99% BMI 20.70 kg/(m^2). Diagnostic tests reviewed for today's visit: Lab Value Units Date High Low HB 7.4 g/dL 03/14/2023 15.5 11.5 HCT 23.3 % 03/14/2023 46.0 36.0 WBC 4.66 k/uL 03/14/2023 11.00 3.70 PLT 252 k/uL 03/14/2023 400 150 NA 140 mmol/L 03/14/2023 144 136 K 4.1 mmol/L 03/14/2023 5.1 3.7 GLUC 121 mg/dL 03/14/2023 99 74 BUN 70 mg/dL 03/14/2023 21 7 CREAT 4.20 mg/dL 03/14/2023 0.96 0.58 PTSEC 10.9 sec 03/09/2023 13.0 9.7 INR 1.1 no uni* 03/09/2023 1.3 0.9 APTT 59.1 sec 03/14/2023 32.4 23.0 ALT 17 U/L 03/13/2023 38 7 AST 27 U/L 03/13/2023 35 13 TBILI 0.5 mg/dL 03/13/2023 1.3 0.2 TSH No results within date range. Lab Value Units Date High Low HCGQT No results within date range. UHCG No results within date range. HCG, BODY* No results within date range. Lab Value Units Date High Low ABORHD No results within date range. ABSCREEN No results within date range. No results found for: HBA1C Recent Results (from the past 8760 hour(s)) ECG COMPLETE Collection Time: 03/02/23 5:27 PM Result Value Ventricular Rate 71 Atrial Rate 71 P-R Interval 130 QRS Duration 76 QT Interval 394 QTC Calculation (Bazett) 428 Calculated P [place] 40 Calculated R [place] 67 Calculated T [place] 63 Impression NORMAL SINUS RHYTHM NORMAL ECG Confirmed by RUIZ MCKEON M.D. ([id number]), material expeditor SANGEETHA SALGADO ([id number]) on 03/04/2023 7:01:54 AM Recent Results (from the past 58283 hour(s)) ECHO Collection Time: 03/03/23 5:45 AM Impression CONCLUSIONS: - Exam indication: Initial evaluation of infective endocarditis with positive blood cultures - The left ventricle is normal in size. Left ventricular systolic function is normal. EF = 59 5% (2D biplane) Normal left ventricular diastolic function. - The right ventricle is normal in size. Right ventricular systolic function is normal. - There are no significant valvular abnormalities. - There are no 2D findings suggestive of endocarditis. - The patient has not had a prior [facility] echocardiographic exam for comparison. * * * Final * * * Assessment Patient has the following medical conditions which may affect helen-operative course: Ileostomy in place ([facility]) Dx with Crohn's Disease 1978 11/2022 ileocolonic anastomotic resection, stricturoplasty, and DLI. Essential hypertension Managed with NIFEdipine ER (PROCARDIA XL) BP this visit 131/71 Patient denies SOB, dizziness, lightheadedness, palpitations, syncope and chest pain Anxiety Managed with DULoxetine (CYMBALTA) busPIRone and ALPRAZolam (XANAX) Followed by PCP History of DVT (deep vein thrombosis) Deep Vein Thrombosis (Dvt) of Brachial Vein of Left Upper Extremity Managed with apixaban (ELIQUIS) Patient stated instructed to stop for surgery, last dose taken 04/13/23 Anemia 04/17/23 H&H was 9.5/29.1 04/10/23 H&H was 8.6/27.1 SERENITY (acute kidney injury) ([facility]) 03/28/23 BUN/CREAT 60/1.6 GFR 37 04/17/23 Component Ref Range & Units 2 d ago Glucose 70 - 99 mg/dL 116 High BUN 6 - 20 mg/dL 48 High Creatinine 0.50 - 0.90 mg/dL 1.4 High Est, Glom Filt Rate >60 mL/min/1.73m2 44 Low Bun/Cre Ratio 9 - 20 34 High Medical marijuana use Used for Fibromyalgia and anxiety, last use this morning Instructed hold for surgery On total parenteral nutrition (TPN) TPN at night [address] Kaplan Fibromyalgia Followed by PCP Patient states stable and controlled at this time Panda Activity Status Index: METS: Walk indoors, such as around the house (1.75 METs) Do light work around the house, such as dusting or washing dishes (2.70 METs) Take care of self; that is eating, dressing, bathing, using the toilet (2.75 METs) Walk a block or two on level ground (2.75 METs) Do moderate work around the house, such as vacuuming, sweeping floors, or carrying in groceries (3.50 METs) Climb a flight of stairs or walk up a hill (5.50 METs) DASI Score: 18.95 Patient denies any chest pain or undue shortness of breath with the above physical activity. STOP-Bang Score: Snores loudly Has or is being treated for high blood pressure Patient over 50 years old Denies feeling tired, fatigued, or sleepy during the daytime Has not been observed to stop breathing or choking/gasping during sleep BMI less than or equal to 35 kg/m^2 Non-male patient STOP-Bang Score: 3 [id number] Score: Hypertension history: Yes [id number] Score: 1 ASA Class: 3 ANESTHESIA FINDINGS: Intubation History: No abnormal airway history Significant Anesthesia Considerations: + Right Chest Archer potential difficult IV/vein access Airway History: No abnormal airway history I - PHYSICAL EVALUATION AIRWAY Patient intubated: No. Tracheostomy tube not present Mallampati: I. TM distance: >3 FB. Neck ROM: full ROM without neurological symptoms. Mouth opening: adequate. Short neck: no. Thick neck: no Godoy present: no Lip Bite Test: I II - ANESTHESIA PLAN ASA Score: 3 Anesthetic plan additional comments: *PACC/TCI - anesthesia choice. Beta Parviz Monitoring Plan Post Procedure Analgesic Plan Prepared for Surgery: optimally prepared for surgery, pending [see comment]. DOS exam Patient seen in PACC day before surgery CONSULTS: Patient does not require consults for optimization at this time Planned Anesthetic: anesthesia choice The Following Tests/Procedures Have Been Initiated: No orders of the defined types were placed in this encounter. Instructions Given to Patient: Instructions located in the after visit summary. Patient given verbal and written preop instructions and voices comprehension and compliance. SIGNATURE: Leon Branham APRN.CNP PATIENT NAME: Elvira Syed DATE: April 19, 2023 TIME: 12:15 PM PAGER/CONTACT #: documented in this encounter [facility] 04-04-2023 Miscellaneous Notes Home Nutrition Support Service Spoke with patient. Discussed low K+, slightly improved along with sCr. She does report some tingling in her extremities that is not new-was reported to our office previously. Advised that pt discuss with PCP. Rec: Formula faxed with increase in K+. Suspect pt will continue to require more K+ as kidney function is improving. Edy Gurrola, MS, RD, LD, CNSC Pt returned a call to Edy. [phone] documented in this encounter [facility] 03-31-2023 Note [facility] 03-31-2023 History of Presen t illness Narrative Per orders of stop copat and maintain archer for TPN so managed by nutrition. Message sent to Pharmacy. Adelita Esteves Adm Asst I documented in this encounter [facility] 03-23-2023 Miscellaneous Notes Per JHONNY Ambrose report run and patient last filled 02/24/23. Okay to provide codeine refills. Rec: - Codeine refills for 30mg TID x 3 months provided. MyChart message to patient to let her know Kathryn Ansari RD Reviewed hospital notes and noted patient was increased to codeine 30mg TID during most recent hospital admission by NST team. Per Epic, it appears as those Rx for this was provided on 03/14 at hospital d/c. Patient reports the only med she was given at hospital d/c was Elequis. She also had an Rx for Cymbalta listed, which she reports she also did not receive. She checked through d/c paper work and also did not receive paper scripts. She will run out of codeine today. Rec: - Message to patient's provider, Dr. Kaplan, to run [facility] report to ensure patient was not already provided codeine Rx Kathryn Ansari RD Pt codeine increased while in hospital to 30 mg 3 times a day. Needs refill sent to [facility] pharmacy. [phone] documented in this encounter [facility] 03-17-2023 Note [facility] 03-14-2023 Note [facility] 03-14-2023 Note [facility] 03-14-2023 Note [facility] 03-14-2023 Note [facility] 03-13-2023 Note [facility] 03-12-2023 Note [facility] 03-12-2023 Note [facility] 03-11-2023 Note [facility] 03-11-2023 Note [facility] 03-10-2023 Note [facility] 03-09-2023 Note [facility] 03-08-2023 Note [facility] 03-07-2023 Note [facility] 03-06-2023 Note [facility] 03-06-2023 Note [facility] 03-06-2023 Note [facility] 03-05-2023 Note [facility] 03-05-2023 Note [facility] 03-04-2023 Note [facility] 03-04-2023 Note [facility] 03-04-2023 Note [facility] 03-03-2023 Note [facility] 03-03-2023 Note [facility] 03-03-2023 Note [facility] 02-24-2023 Note [facility] 02-21-2023 Note [facility] 02-20-2023 Miscellaneous Notes Elvira Syed [phone], not feeling well, went to ED over the weekend. Stoma has doubled in size. documented in this encounter [facility] 02-18-2023 Miscellaneous Notes Addended by: EDY NO on: 02/18/2023 01:35 PM Modules accepted: Orders documented in this encounter [facility] 02-15-2023 Note [facility] 02-15-2023 History of Presen t illness Narrative COLORECTAL SURGERY VIRTUAL VISIT FOLLOW UP I have communicated my name and active licensure. The patient's identity and physical location were verified at the time of this visit. Either the patient or their legal client support representative has been informed of the risks and benefits of -- and alternatives to -- treatment through a remote evaluation and consents to proceed with the evaluation remotely. I had a virtual visit with Ms. Syed today for follow up of after Exploratory laparotomy, resection of ileocolic anastomosis, stricturoplasty, diverting loop ileostomy, tap block, Ron-Cut liver biopsy. UPDATED HISTORY: Elvira Syed is a 57 year old female 3 months after Exploratory laparotomy, resection of ileocolic anastomosis, stricturoplasty, diverting loop ileostomy, tap block, Ron-Cut liver biopsy. Her stoma output has been low and stoma output was up. She takes 8 imodium a day and 2 codein. She is still on TPN , she is not eating much. She gained some weight, now a 100 lbs She did not restart biologics yet. PHYSICAL FINDINGS OF NOTE: Patient reported weight 100 lbs General - Normal, healthy, cooperative, in no acute distress Able to interact verbally by video conference Pulmonary - respiratory effort normal Abdominal - Not performed Motor - patient seen sitting with Normal appearing strength and coordination Anorectal exam - Not Performed Medical Decision Making: Assessment Assessment & Diagnosis: Elvira Syed is a 57 year old female s/p Exploratory laparotomy, resection of ileocolic anastomosis, stricturoplasty, diverting loop ileostomy, tap block, Ron-Cut liver biopsy Data Reviewed: Tests & Documents Reviewed/ordered: Review of prior notes from chart I have discussed Elvira Syed's treatment plan and/or results with patient . Treatment plan: Will reach out to Marce Hamlin -- to start biologics Will need contrast study via efferent limb to evaluate stricturoplasty Edy No DO Pelvic Floor Department of Colorectal Surgery Risk of morbidity, mortality and/or complications of treatment plan: moderate I spent a total of 25 minutes on the date of the service which included communicating with other HCPs (not separately reported) and independently interpreting results (not separately reported). documented in this encounter [facility] 02-13-2023 Miscellaneous Notes Returned call to patient. Let her know she has two more months left on Rx- can call pharmacy to fill. Patient reports she is tolerating codeine well, no side-effects. She thinks it is working somewhat, but not a lot. Patient with ~4L of stoma output daily over past few days. She did have vomiting last night and felt unwell, laying in bed all day taking it easy today. She felt a bit feverish (body aches, ? Warm forehead) but never took her temp, wonders if she has a GI bug. [place] dehydrated and [facility] RN advised her to do 1L IVF today which she did. Plans to do 1L the next two days as well. Advised patient to start taking her temperature twice daily and report any fevers. She will let us know if she experiences shaking, chills, night sweats with infusions as well. She will closely monitor stoma output. If stoma output remains high next week, can discuss increasing codeine with Dr. Kaplan. This does seem to be above patient's baseline and could in fact be related to a GI bug. Denies s/s of SIBO at this time. Rec: - Patient can call pharmacy to have codeine refilled. Continue twice daily for now - Patient to call office with any s/s of CRBSI, fevers - If stoma output remains high next week, can ask Dr. Kaplan if we should increase codeine - Patient overdue for clinic visit. Added to sunshine list, could also discuss codeine increase at that visit Kathryn Ansari RD Pt needs refill on codeine sent to [facility]. Availibility has been verified. Also question of whether she should be continuing to take [phone] documented in this encounter [facility] 02-01-2023 Miscellaneous Notes Elvira M Boy [phone], has called several times concerning returning to work. Since FMLA form can't be completed. She now requests updated return to work letter stating she had emergency surgery 11/16, return to work light duty 01/02, until next surgery date, 04/20. Fax to [facility], . documented in this encounter [facility] 01-31-2023 Miscellaneous Notes Elvira M Boy [phone], have questions concerning FMLA forms being completed. documented in this encounter [facility] 01-16-2023 Miscellaneous Notes Home Nutrition Support Service Returned call to Sonia. She states labs will be drawn Weds this week to ensure she has all of the correct tubes for additional vitamins and that pt will be fasting from MVI prior to B6 draw. She states that whole blood Mn has been redrawn and will send results to [facility] Celine Schroeder RD, LD, MFN, CNSC VM-Questions about lab order for today. [phone] documented in this encounter [facility] 01-13-2023 Miscellaneous Notes Home Nutrition Support Service Received signed medication agreement. Coordinators to obtain Dr Kaplan's signature and have agreement scanned into patient's chart. Rec. Rx for codeine 15mg BID routed to Dr Kaplan for signature. Pt notified. Alfreda Salvador RD, LD, CNSC Home Nutrition Support Service Dr Kaplan responded next step is codeine if patient is agreeable. Starting a little lower 15mg bid - qid should be ok with her low weight. Called pt and discussed plan to trial codeine and explained I do not know what the cost will be ahead of time. She is agreeable w/ plan. Emailed her CGRT medication agreement d/t controlled substance. Pt to read, sign if she agrees, and send back to [facility]. Rec. Plan to start codeine once pt returns signed medication agreement. Alfreda Salvador RD, LD, CNSC Home Nutrition Support Service Dr. Irizarry suggested patient taking Lomotil twice/day instead of 4x/day to reduce the cost since the $90/month was with the GoodRx discount or waiting for Dr. Kaplan to return to further advise. Called patient who would rather wait for Dr. Kaplan to returns since $45/month is still expensive and if the full dose works for her she will not be able to afford it. Recs: forward to Dr. Kaplan to advise when she returns Keily Saab RD, CNSC Home Nutrition Support Service Call to patient today who reports that she has increased Imodium to 4mg ACHS and is has not helped reduce stoma output; patient does not think it is helping at all. She tried to fill Lomotil that was prescribed at 12/23/[address] Kaplan but cost was $90/month which she cannot afford. She is limiting PO fluid intake to 1-1.5L/day and has 2-3L stoma output/day. Patient reports that bag breaks and only lasts 2 days; sometimes 3. Patient is asking if there is something else she can tried to reduce stoma output however she reports immediate transit time. I don't see that she has tried octreotide though unknown at this time if insurance will cover it. Stoma closure is scheduled for 04/20/23. Recs: will forward to [facility] provider to advise in Dr. Kaplan's absence Keily Saab RD, CNSC documented in this encounter [facility] 01-13-2023 Miscellaneous Notes Home Nutrition Support Service I have reviewed the dosage, timing and amount of medication to be dispensed. I approve this prescription to be reviewed and signed by a Nutrition Support physician. Prescription Disposition: Escript Alfreda Salvador RD, LD, CNSC documented in this encounter [facility] 12-29-2022 Miscellaneous Notes Home Nutrition Support Service Returned call to patient who reports her pre-infusion blood sugars are ranging 60-70 so her has held the 10 units of insulin in PN the last couple of nights for fear of hypoglycemia. She denies any s/s of hyper- or hypoglycemia. Instructed pt to continue to hold insulin from PN. She will check blood sugars before infusion, mid-way through infusion, and 1 hr post-infusion through the weekend and will call [facility] on Tuesday 01/02 with the results. If her blood sugar is >200 tonight, she will call [facility] tomorrow to discuss. Pt repeated instructions back to me accurately. Rec. Pt to hold insulin at this time. She will f/u with [facility] with blood sugar readings. Alfreda Salvador RD, LD, CNSC VM-Blood sugars ranging 60 to 70. has not been putting insulin in her formula. [phone] Electronically signed by Jj Diaz [facility] at 12/29/2022 12:43 PM EDT documented in this encounter [facility] 12-23-2022 Note [facility] 12-23-2022 History of Presen t illness Narrative Home Nutrition Support Service Nutrition Assessment Assessment of Malnutrition Nutritional status: Potential micronutrient deficiency revealed in No deficiency identified RECOMMEND DIAGNOSIS: NO MALNUTRITION IDENTIFIED Nutrition Assessment: Feeding difficulties Normal BMI; below goal weight Iron deficiency anemia - last received IV infusions 10/2022 by [facility] At risk for vitamin B12 deficiency; previously received B12 injections but it has been years since last one PN depdendent Estimated Daily Nutritional Needs: dosing weight 43.7 kg 1529 - 1967 kcals/day = 35 - 45 kcals/kg dosing weight 65 - 87 g protein/day = 1.5-2.0 g/kg dosing weight Overall Assessment: Crohn's disease s/p DLI Small bowel obstruction Intestinal malabsorption RECOMMENDATIONS: This patient does not need to be evaluated for iron deficiency anemia and metabolic bone disease (DXA). Changes to be made to the patient's PN formula are: none at this time -Continue 2.8L PN over 12 hours; continue to assess need to further increase PN volume Continue to use PRN IVF for s/s dehydration (UOP < 1L/day) Continue chewable MVI BID (Flinstones) d/t IV MVI shortage Continue low sugar diet as tolerated Oral Rehydration Solution (ORS): trial Pedialyte; sip between meals Continue intake and output records and send to our office weekly Antidiarrheal Medication: Imodium 2, 2mg caplet(s), 30 minutes before meals and bedtime Lomotil 2.5 mg tab, take 2 tabs, 30 minutes before meals and bedtime Labs: Vitamin B12 and MMA with next blood draw. Anthropometrics: Height: 4'10 (1.47 m) Weight: 96.4 lb (12/23/22), 95.6 lb (11/13/22 - hospital weight/start of HPN) Usual weight: 100 lb (09/2022) Goal weight: 100 lb BMI: 20.15 kg/m2 - normal Weight has not changed significantly Nutrition Focused Physical Exam: Subcutaneous Fat Loss: Orbital:No fat loss Triceps: No fat loss Mid-axillary at the iliac crest: No fat loss Muscle Loss Locations: Temporalis: No muscle loss Pectoralis: No muscle loss Deltoids: No muscle loss Interosseous: No muscle loss Latissimus dorsi, trapezius: No muscle loss Quadriceps: No muscle loss Gastrocnemius: No muscle loss Ascites: No Edema: No Functional status: Functional capacity is unrelated to nutrition status Potential Signs of Inflammation: no identifiable sources Potential micronutrient deficiency revealed in No deficiency identified Intake: Patient is currently taking 2800 mL's of PN over 12 hours (1 hr up, 2 hrs down) 7 days per week providing 1544 calories/day and 85 gms of amino acids/day. This includes 500 mL of 20% SMOFlipid 3 times weekly. This also includes MVI 3x/week (reduced d/t IV shortage), Tralement, 0.3 mg Cu, 2 mg Zn, and 10 units insulin. Patient utilizes PRN IVF bags frequently though hoping to reduce use with increase in PN volume to 2.8L (occurred this week) Liquid PO intake is recorded at home and is 6878-7865 mL/day and diet is GI soft. Poor appetite. Eats a small meal twice daily. Chicken strips, pasta and garlic bread. +bloating. No nausea but taking Zofran BID Drinks: Body [place], water; patient has tried DripDrop and doesn't like the taste; reports Gatorade and G zero cause more output Output: Urine output is 800-1550mL/day, and patient has the following measurable drainage type(s): ileostomy 0500-2121 mL's. The patient has varying bowel movements per day - sometimes mucous; sometimes stool. The output is watery. Relation to food/ fluid immediately. Keily Saab RD, [facility] Increments: 2 documented in this encounter [facility] 12-23-2022 Note [facility] 12-23-2022 Note [facility] 12-23-2022 Instructions Janell Kaplan MD - 12/23/2022 12:24 PM EDT -Increase Imodium to 2 doses 4 times a day -Start Lomotil 1 tab 4 times a day --> if tolerated, increase to 2 tabs 4 times a day -Take the antidiarrheals about 20-30 mins before meals HIGH OUTPUT OSTOMY SUGGESTIONS GENERAL TIPS Digestion starts in the mouth - CHEW your food well! Separate solids and fluids as much as possible. Eat smaller meals more frequently, separate meal into meal + snack. Sip fluids between meals, preferably an oral rehydration solution. Chewable or crushable medications are more likely to be absorbed, including vitamin supplements ORAL REHYDRATION SOLUTIONS Oral rehydration solutions have a specific ratio of sodium, carbohydrate, and water that optimizes absorption of fluid in the small intestine. This ratio is different from what is typically found in commercial sports drinks. Start with 1 quart/liter per day, sipped slowly between meals and increase as tolerated to goal fluid intake. Commercial oral rehydration solutions, generally found in the 'infant' section of stores DripDrop www.dripdrophydration.Pandoo TEK Pedialyte, Rehydralyte, Equalyte www.abbottnutrition.com Ensure Hydration www.abbottstore.com CeraLyte www.ceralyte.com Liquid IV https://liquid-iv.com/ Parent's Choice Pediatric Electrolyte ([employer] brand) 2. Homemade cereal based oral rehydration solution cup dry, pre-cooked baby rice cereal + 2 cups water + teaspoon salt. Mix well, refrigerate. May add Splenda or Eden water flavor drops to taste if desired. 3. Homemade World Health Organization oral rehydration solution teaspoon salt + teaspoon Ruby Salt Substitute + teaspoon baking soda + 2 tablespoons table sugar. Add water to make 1 liter & shake well. May add Splenda or [place] water flavor drops to taste if desired. 4. ORAL REHYDRATION-LIKE SOLUTIONS - DRINK IS OR FREEZE POPSICLES Regular Gatorade - 1 1/2 cups Gatorade + 2 1/2 cups water + 3/4 teaspoon salt Gatorade G2 - 4 cups Gatorade G2 + 1/2 teaspoon salt [place] Organic Lemonade - 1 cup lemonade + 3 cups water + 3/4 teaspoon salt Country Time Lemonade Powder - 2 tablespoons lemonade powder + 4 cups water + 3/4 teaspoon salt Grape or Cranberry Juice - 3/4 cup juice + 3 1/4 cups water + 3/4 teaspoon salt Apple Juice - 3/4 cup juice + 3 1/4 cups water + 3/4 teaspoon salt Tomato Juice - 2 1/2 cups tomato juice + 1 1/2 cups water Chicken Broth -4 cups water + 1 dry chicken bouillion cube + 1/4 teaspoon salt + 2 tablespoons sugar - 2 cups liquid broth + 2 cups water + 2 tablespoons sugar Beef Broth - 2 cubes dry beef broth + 4 cups water + 2 tablespoons sugar Vegetable Broth - 2 cubes dry vegetable bouillion + 4 cups water + 2 tablespoons sugar Miso Broth - 3 tablespoons and 1 teaspoon miso + 1 tablespoon sugar + 4 cups water documented in this encounter [facility] 12-23-2022 History of Presen t illness Narrative Images from the original note were not included. SMALL BOWEL DISEASES AND NUTRITION FOLLOW-UP VISIT Date of direct communication: 12/23/2022 Assessment IMPRESSION: Elvira Syed is a 57 year old female with a history of stricturing enterocolonic Crohn's disease diagnosed in 1977 status post multiple surgical resections, most recently ileocolonic anastomotic resection, stricturoplasty, and diverting loop ileostomy ~90cm distal to LOT November 2022. Current anatomy is ~110cm proximal small bowel anastomosed to proximal transverse colon with a diverting ileostomy. After the surgery, she was started on TPN for fluids and nutrition support. DIAGNOSTIC ISSUES AND PLAN: #) Short bowel syndrome #) High output ileostomy -Try to adhere to diet/lifestyle strategies for SBS without colon -Increase Imodium to 2 doses 4 times a day -Start Lomotil 1 tab 4 times a day --> if tolerated, increase to 2 tabs 4 times a day -Take the antidiarrheals about 20-30 mins before meals -Oral rehydration solution as the beverage of choice, sipped between meals -Continue TPN as prescribed for now. -Next step for anti-diarrheal management would be codeine #) Therapeutic drug (TPN) monitoring -Continue standard monitoring -Volume status, renal insufficiency: If ostomy output is not significantly improved or renal function continues to decline, increase IV support volume up to 3-3.3 L/d -Hx of vitamin B12 deficiency: will check level. Anticipate re-starting B12 injections which she was on in the past. 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 FOLLOW-UP: 2 months or sooner if needed Janell Kaplan MD 12/23/2022 Staff [employer] Real [employer] Director, [facility] [place] PRIMARY PROBLEM: short bowel syndrome, on TPN INTERVAL HISTORY: Since discharge home: -Generally stable on home TPN -No problems with infusions, but sometimes the bag is empty about 45 mins before the infusion is scheduled to end. This happens more frequently with the 2:1 than the 3:1 -Had been doing TPN + hydration, but consolidated by increasing TPN volume -TPN volume has increased from 2.3 --> 2.8L -Creat has increased over the past week -Maintaining >1L/d urine output -Oral intake is limited to about 2 meals a day -Avoiding simple sugars because this exacerbates SIBO symptoms and ostomy output -Hasn't started rifaximin, would prefer dietary management of SIBO symptoms -Doesn't like the taste of ORS. Discussed it's an acquired taste and reason to sip ORS. -Taking minimal antidiarrheals, just imodium 3 times a day -Ostomy output is thin, watery, and ample >2L per day CURRENT NUTRITION SUPPORT: TPN: 2800 ml volume over 12 hours 7 days per week with 1 hour ramp up and 2 hour down 85 g amino acids 228 g dextrose 100 g Smoflipid 3 days per week 8 mEq calcium gluconate 14 mEq mag sulfate 0 mEq potassium phosphate 30 mEq sodium phosphate 50 mEq potassium chloride 0 mEq potassium acetate 275 mEq sodium chloride 0 mEq sodium acetate 1 mL Tralement 0.3 mg copper 2 mg zinc Patient to add 10ml MVI-13 MWF + 10U insulin prior to infusion Weight history: Last Wt 11/30/22 : 43.1 kg (95 lb) 11/13/22 : 43.4 kg (95 lb 9.6 oz) 09/22/22 : 44.5 kg (98 lb) 06/29/20 : 49.4 kg (109 lb) 06/26/20 : 50.6 kg (111 lb 8 oz) CURRENT MEDICATIONS: Current Outpatient Medications Medication Sig Dispense Refill loperamide (IMODIUM A-D) 1 mg/7.5 mL oral liquid Take 30 mL by mouth four times daily as needed. 236 mL 1 ondansetron (ZOFRAN) 4 mg tablet Take 1 tablet by mouth every 8 hours as needed for nausea/vomiting. 90 tablet 0 Blood-Glucose Meter 1 Each three times daily. 1 Each 0 Lancets lancets Use as instructed 100 Each 5 blood sugar diagnostic (BLOOD GLUCOSE TEST) test strip Use as instructed 50 Strip 5 traZODone (DESYREL) 50 mg tablet Take 100 mg by mouth daily at bedtime. ustekinumab (STELARA) 90 mg/mL injection Inject 1 syringe (90 mg) under the skin every 6 weeks (Patient not taking: Reported on 11/30/2022) 1 mL 1 DULoxetine (CYMBALTA) 30 mg capsule Take 30 mg by mouth once daily. Lactobacillus acidophilus (PROBIOTIC ORAL) Take 14 Billion Particle Units by mouth once daily. ustekinumab (STELARA) 130 mg/26 mL injection Inject 26 mL intravenously one time only for 1 dose. 26 mL 0 acyclovir (ZOVIRAX) 400 mg tablet Take 400 mg by mouth three times daily as needed. NIFEdipine ER (PROCARDIA XL) 30 mg 24 hr tablet Take 30 mg by mouth once daily. cyanocobalamin 1,000 mcg/mL Inject 1,000 mcg intramuscularly once every month. (Patient not taking: Reported on 11/30/2022) busPIRone HCl 7.5 mg tablet Take 15 mg by mouth twice daily. ALPRAZolam (XANAX) 0.25 mg tablet Take 0.25 mg by mouth as needed. 0 duloxetine hcl(CYMBALTA 60 MG CAP) Take 60 mg by mouth once daily. 0 No current facility-administered medications for this visit. ALLERGIES: ALLERGIES Allergen Reactions Cipro [Ciprofloxaci* Methotrexate Other: See Comments Dizziness, Rash, brain fog/felt drunk PAST MEDICAL/SURGICAL HISTORY, SOCIAL HISTORY, AND FAMILY HISTORY: Reviewed and is unchanged aside from the changes documented in HPI. REVIEW OF SYSTEMS: ROS completed and negative outside of the systems documented in the HPI. INVESTIGATIONS: All available pertinent interval investigations were reviewed and were notable for: PHYSICAL EXAM: BP 98/64 (BP Site: Left Arm, BP Position: Sitting, BP Cuff Size: Regular Adult) Pulse 91 Temp 36.8 C (98.3 F) (Temporal) Ht 147.3 cm (4' 10 ) Wt 43.7 kg (96 lb 6.4 oz) SpO2 95% BMI 20.15 kg/m Body mass index is 20.15 kg/m . Constitutional: Healthy and well developed HEENT: No icterus Neck: No lymphadenopathy. Resp: Normal resp effort. CVS: PPP bilat. Abdo: Non-distended, soft, non-tender, no masses. Ostomy in place. MANAV: Not done. Extr: Reduced muscle bulk and preserved subQ fat reserves. No edema. Skin: Warm and dry. No rash. Neuro: A&O, normal gait. Psych: Normal affect and memory. Total time spent on this patient encounter today was >70 mins including: preparation for the visit, review and interpretation of records, direct discussion with the patient, physical examination, documentation, and co-ordination of care. Shared visit with Keily Saab RD. Home Nutrition Support Service Follow-up Visit Consult note is not complete until Authenticated by the responsible Staff physician. Physician documentation portion of the note: [facility] STAFF PHYSICIAN NOTE OF PERSONAL INVOLVEMENT IN CARE I have reviewed the history obtained and documented by Keily Saab RD and I personally participated in the carreon components. I have discussed the case and management of the patient's care and have amended/corrected the initial note. The following comments revise or confirm relevant carreon components of the note. Janell Kaplan MD 12/23/2022 Some elements copied from [facility] note on 11/14/22 have been updated and all reflect current decision making for today Nutrition Assessment: Assessment of Malnutrition Nutritional status: Potential micronutrient deficiency revealed in No deficiency identified RECOMMEND DIAGNOSIS: NO MALNUTRITION IDENTIFIED Nutrition Assessment: Feeding difficulties Normal BMI; below goal weight Iron deficiency anemia - last received IV infusions 10/2022 by [facility] At risk for vitamin B12 deficiency; previously received B12 injections but it has been years since last one PN depdendent Estimated Daily Nutritional Needs: dosing weight 43.7 kg 1529 - 1967 kcals/day = 35 - 45 kcals/kg dosing weight 65 - 87 g protein/day = 1.5-2.0 g/kg dosing weight Overall Assessment: Crohn's disease s/p DLI Small bowel obstruction Intestinal malabsorption RECOMMENDATIONS: This patient does not need to be evaluated for iron deficiency anemia and metabolic bone disease (DXA). Changes to be made to the patient's PN formula are: none at this time -Continue 2.8L PN over 12 hours; continue to assess need to further increase PN volume Continue to use PRN IVF for s/s dehydration (UOP < 1L/day) Continue chewable MVI BID (Bottle) d/t IV MVI shortage Continue low sugar diet as tolerated Oral Rehydration Solution (ORS): trial Pedialyte; sip between meals Continue intake and output records and send to our office weekly Antidiarrheal Medication: Imodium 2, 2mg caplet(s), 30 minutes before meals and bedtime Lomotil 2.5 mg tab, take 2 tabs, 30 minutes before meals and bedtime Labs: Vitamin B12 and MMA with next blood draw. Follow Up: Return to clinic in 6-[address] Kaplan and [facility] RD This is a 57 year old female with an underlying diagnosis of Crohn's disease since 1977 with h/o bowel resection and DLI/reversed in c/b large bowel obstruction s/p ileocolic resection and diverting loop ileostomy on 11/16/22. Patient has been on home PN since 11/23/22 for a condition of intestinal malabsorption. Plans are to continue with PN until future surgery for 3-6 months. Patient reports no problems with TPN infusions at this time. Patient reports no fevers at home and is not checking urine or blood glucose; no s/s hypoglycemia post infusion. Since starting PN, patient has had recurrent s/s dehydration so PN volume was increased twice and she had infused PRN IVFs. Patient was taking liquid Imodium but was instructed to switch to tablets this week; currently taking 1 tab ACHS but stoma output remains high. Patient has taken Lomotil in the past. Patient also saw GI on 12/14/22 with plan to possibly initiate biologic prior to surgical reconnection if OK'd by surgeon. Last Intestinal Surgery: 11/16/22: Exploratory laparotomy, resection of ileocolic anastomosis, stricturoplasty, diverting loop ileostomy, tap block, Ron-Cut liver biopsy Anatomy: Per Surgical history, the patient has 100 cm of small bowel to ileostomy and 50% of colon out of continuity (ileo-transverse anastomosis) , no ICV, + rectum, and + anus. PAST MEDICAL HISTORY Diagnosis Date Crohn's disease (HCC) Regional enteritis of small intestine (HCC) Severe pre-eclampsia, antepartum Steroid-induced avascular necrosis of knee PAST SURGICAL HISTORY Procedure Laterality Date PAST SURGICAL HISTORY OF 1992,1993 ileostomy reversal PAST SURGICAL HISTORY OF 2002 galbladder PAST SURGICAL HISTORY OF 1994,1997 c-sections PAST SURGICAL HISTORY OF left breast reduction PAST SURGICAL HISTORY OF 2008 right breast reduction PAST SURGICAL HISTORY OF 2004 sinus surgery Anthropometrics: Height: 4'10 (1.47 m) Weight: 96.4 lb (12/23/22), 95.6 lb (11/13/22 - hospital weight/start of HPN) Usual weight: 100 lb (09/2022) Goal weight: 100 lb BMI: 20.15 kg/m2 - normal Weight has not changed significantly Nutrition Focused Physical Exam: Subcutaneous Fat Loss: Orbital:No fat loss Triceps: No fat loss Mid-axillary at the iliac crest: No fat loss Muscle Loss Locations: Temporalis: No muscle loss Pectoralis: No muscle loss Deltoids: No muscle loss Interosseous: No muscle loss Latissimus dorsi, trapezius: No muscle loss Quadriceps: No muscle loss Gastrocnemius: No muscle loss Ascites: No Edema: No Functional status: Functional capacity is unrelated to nutrition status Potential Signs of Inflammation: no identifiable sources Potential micronutrient deficiency revealed in No deficiency identified GENERAL EXAM: well appearing, alert, and in no acute distress ABDOMEN: stoma(s) Intake: Patient is currently taking 2800 mL's of PN over 12 hours (1 hr up, 2 hrs down) 7 days per week providing 1544 calories/day and 85 gms of amino acids/day. This includes 500 mL of 20% SMOFlipid 3 times weekly. This also includes MVI 3x/week (reduced d/t IV shortage), Tralement, 0.3 mg Cu, 2 mg Zn, and 10 units insulin. Patient utilizes PRN IVF bags frequently though hoping to reduce use with increase in PN volume to 2.8L (occurred this week) Homecare [facility] Name:[facility] Liquid PO intake is recorded at home and is 4952-4319 mL/day and diet is GI soft. Poor appetite. Eats a small meal twice daily. Chicken strips, pasta and garlic bread. +bloating. No nausea but taking Zofran BID Drinks: Body [place], water; patient has tried DripDrop and doesn't like the taste; reports Gatorade and G zero cause more output Output: Urine output is 800-1550mL/day, and patient has the following measurable drainage type(s): ileostomy 9739-2635 mL's. The patient has varying bowel movements per day - sometimes mucous; sometimes stool. The output is watery. Relation to food/ fluid immediately. Patient's right-sided single lumen Archer was placed on 11/19/22. Patient reports No swelling, tenderness, redness, or drainage at the catheter exit site. The stitch has not been removed. The catheter dressing is changed weekly using Chloraprep. Patient is not prescribed 50% ethanol lock therapy d/t lack of availability. Does patient have homecare nursing? YES Laboratory: Lab Collected Date 12/19/2022 12/12/2022 12/05/2022 11/28/2022 11/22/2022 Lab Source [facility] [facility] Na (mEq) 140 140 139 136 137 K (mEq) 3.6? 4.5 3.6? 3.9 4.6 Cl (mEq) 92? 101 97? 94? 102 CO2 (mmol/L) 36? 31 34? 27 24 BUN (mg/dL) 60? 42? 41? 53? 27? Creatinine (mg/dL) 1.16? 0.97? 0.52 1.1? 0.7 Glucose (mg/dL) 122? 101? 107? 150? 132? Calcium (mg/dL) 9.9 9.7 9.3 10.1 9.5 Total Protein (g/dL) 7.6 6.7 6.1? 8.1 6.8 Alb (g/dL) 3.8 3.3? 3? 3.8 3.4? AST (SGOT, U/L) 26 17 16 23 29 Alk Phos (g/dL) 127? 119? 121? 232? 207? Total Bili (mg/dL) 0.8 0.6 0.5 0.5 0.7 ALT (U/L) 41? 18 15 38? 49? Mg (mg/dL) 2.2 2.2 2 2.1 2.2 PO4 (mg/dL) 5? 3.9 3.4 4.4 4 WBC (K/uL) 9.6 7.5 6.6 15.8? 12.82? Hgb (g/dL) 10.9? 10? 8.9? 10.9? 8.8? Hct (%) 35.7? 32.5? 29? 34.8? 28.3? MCV (fL) 92.2 94.8 94.8 93.5 90.1 RDW (%) 14.7? 15.1? 15.6? 17.3? 18.5? Platelet (K/uL) 274 327 489? 815? 372 Zinc (ug/dL) 86.4 Manganese (ug/dL) Copper (ug/dL) 86.1 Free Copper Serum (ug/dL) Selenium (ug/L) 119.4 Chromium (ug/dL) 1.4 Triglycerides (mg/dL) 300? C-Reactive Protein (mg/dL) 3 Latest Reference Range & Units 11/13/22 17:00 Ferritin 14.7 - 205.1 ng/mL 2,619.0 (H) Iron 41 - 186 ug/dL 129 TIBC 232 - 386 ug/dL 260 Transferrin Saturation 15.0 - 57.0 % 49.6 Medications: Current Outpatient Medications Medication Sig Dispense Refill loperamide (IMODIUM A-D) 1 mg/7.5 mL oral liquid Take 30 mL by mouth four times daily as needed. 236 mL 1 ondansetron (ZOFRAN) 4 mg tablet Take 1 tablet by mouth every 8 hours as needed for nausea/vomiting. 90 tablet 0 Blood-Glucose Meter 1 Each three times daily. 1 Each 0 Lancets lancets Use as instructed 100 Each 5 blood sugar diagnostic (BLOOD GLUCOSE TEST) test strip Use as instructed 50 Strip 5 traZODone (DESYREL) 50 mg tablet Take 100 mg by mouth daily at bedtime. DULoxetine (CYMBALTA) 30 mg capsule Take 30 mg by mouth once daily. Lactobacillus acidophilus (PROBIOTIC ORAL) Take 14 Billion Particle Units by mouth once daily. acyclovir (ZOVIRAX) 400 mg tablet Take 400 mg by mouth three times daily as needed. NIFEdipine ER (PROCARDIA XL) 30 mg 24 hr tablet Take 30 mg by mouth once daily. busPIRone HCl 7.5 mg tablet Take 15 mg by mouth twice daily. ALPRAZolam (XANAX) 0.25 mg tablet Take 0.25 mg by mouth as needed. 0 duloxetine hcl(CYMBALTA 60 MG CAP) Take 60 mg by mouth once daily. 0 No current facility-administered medications for this visit. Allergies: ALLERGIES Allergen Reactions Cipro [Ciprofloxaci* Methotrexate Other: See Comments Dizziness, Rash, brain fog/felt drunk This patient was seen by Keily Saab RD in consultation with Dr. Kaplan. documented in this encounter [facility] 12-23-2022 Note HNO ID: [id number] Author: Keily Saab RD Service: ? Author Type: Registered Dietitian Type: Progress Notes Filed: 12/23/2022 3:16 PM Note Text: Abstract moved to office visit with Dr. Kaplan on 12/23/22. [facility] 12-23-2022 History of Presen t illness Narrative Abstract moved to office visit with Dr. Kaplan on 12/23/22. documented in this encounter [facility] 12-14-2022 Note [facility] 12-09-2022 Miscellaneous Notes SPECIALTY CARE COORDINATION FOLLOW-UP NOTE Spoke to Elvira. Explained that I spoke to Dr. No who says that she can advance her diet to a low fiber, GI soft diet: such as, puddings, bananas, no raw fruits or vegetable or salads. Asked her to continue to monitor her output. She stated that she understood. She thanked me for the call. Signature Dora Cui RN December 09, 2022 documented in this encounter [facility] 12-08-2022 Miscellaneous Notes Elvira M Boy [phone], ask if she can up her diet. documented in this encounter [facility] 12-08-2022 Miscellaneous Notes documented in this encounter [facility] 12-06-2022 Miscellaneous Notes Addended by: MELBA REINA on: 12/06/2022 10:09 AM Modules accepted: Orders documented in this encounter [facility] 12-02-2022 Miscellaneous Notes Home Nutrition Support Service See telephone encounter dated 12/02/22. Roger Aguilera RD, LD, CNSC Would like to discuss her diet. [phone] Electronically signed by Jj Diaz [facility] at 12/01/2022 11:10 AM EST documented in this encounter [facility] 11-30-2022 Note [facility] 11-30-2022 Note [facility] 11-30-2022 History of Presen t illness Narrative COLORECTAL SURGERY Post-Op Visit Elvira Syed returns for a post-operative visit after undergoing surgery, on 11/16/[address]. OPERATION PERFORMED: Exploratory laparotomy, resection of ileocolic anastomosis, stricturoplasty, diverting loop ileostomy, tap block, Ron-Cut liver biopsy INDICATIONS: 57-year-old woman with multiple prior laparotomies for ileocolic resections and Crohn's disease small bowel resections for stricturing Crohn's disease presented with acute on chronic obstruction and CTE demonstrated long segment of strictures in jacob terminal ileum, possible jejunal stricture and possible colonic stricture. Gastrografin enema was performed to rule out colonic stricture. Additionally patient had hyperbilirubinemia, liver ultrasound and MRCP were performed prior to operation. Patient was taken to the operating for exploratory laparotomy, ileocolic resection, possible stricturoplasty, diverting ileostomy, and liver biopsy. OPERATIVE FINDINGS: 20 cm segment of very tight strictures approximately 110 cm from ligament of Treitz , short segment stricture at about 90 cm. Long [id number] ileocolic anastomosis with fibrotic changes as well. Normal liver Reason for Hospitalization (11/13/2022-11/23/2022): This is a 57-year-old woman with multiple prior laparotomies for ileocolic resections and Crohn's disease small bowel resections for stricturing Crohn's disease presented with acute on chronic obstruction and CTE demonstrated long segment of strictures in jacob terminal ileum, possible jejunal stricture and possible colonic stricture. Gastrografin enema was performed to rule out colonic stricture. Additionally patient had hyperbilirubinemia, liver ultrasound and MRCP were performed prior to operation. Patient was taken to the operating for exploratory laparotomy, ileocolic resection, possible stricturoplasty, diverting ileostomy, and liver biopsy. Hospital Course: Elvira Syed presented to OSH on 11/12/22 with concerns of lower abdominal pain, nausea, diarrhea. Upon arrival a CT scan was done and revealed dilated fluid-filled colon with possible transition point in descending colon, findings similar to prior study in 2019, recurrent colitis or ileus versus large bowel obstructions with no free air or pneumatosis. She was then transferred to [facility] to be further managed by colorectal surgery by Edy No DO. A PICC line was placed to allow for TPN which was managed by NST. Gastroenterology was consulted and assisted in management. GI recommended she receive MRCP for biliary duct dilation and elevated LFTs. Hepatitis panel was ordered and resulted normal. Hepatology was additionally consulted and their recommendations were followed. A CTAP reread, liver vascular US, and urine tox screen were ordered. MRCP showed no intrahepatic or extrahepatic biliary duct dilation with some iron deposition. Liver vascular US showed patent hepatic vasculature with appropriately directed flow. GGE was done and revealed no stricture or obstruction. She underwent surgery on 11/[address] No. Please see operative report for full details. Afterward, the patient was transferred to a regular nursing floor. An NG tube was inserted 11/16 and was removed before discharge, after performing a clamp trial. Pain was controlled with oral and IV medication per ERAS protocol and her intake and output was closely monitored. Diet was advanced as tolerated. Thompson catheter was removed on postoperative day (POD) 2 and she voided independently. Ureteral stents were removed on POD 1. Stoma emanuel removal was done POD 3. DVT prophylaxis was managed by Heparin 5000 unit(s) BID and intermittent compression stockings. Her electrolytes were monitored with daily labs and replaced as needed. Once the patient's pain was controlled with oral medication, full liquid diet was tolerated, and demonstrated appropriate bowel function, she was deemed fit for discharge. The patient is asked to please follow up with Melba Reina CNP as scheduled. Do to proximal location of ileostomy (~90 cm from LOT), patient will go home on TPN until ileostomy can safely be reversed. Patient states that she has been having TPN managed through nutrition. She currently is on fluids and TPN. They are working on adjusting TPN so that she will not need fluids for dehydration. Patient also per nutrition is on full liquid diet and is wanting to advance diet to solids. She currently also has beck still in place and would like these removed today. She is wondering if she needs to restart Stelara and if she can get temporary handicap sticker for car as well if she is able to restart her B12 injections. Her post-operative period was uncomplicated. She is tolerating diet with an improving appetite, stable weight, and energy level is worsening. She has no specific complaints. Stoma output: over 1000 per day, she is having some issues with leakages here and there. Output is pure liquid and high. She is changing the appliance as whole every 3-4 days and emptying about 5 times a day. Bowel stoppers: none. Current diet: full liquid tolerating and tpn. N/V nausea. F/C no. Incision/wound is healing. Path: FINAL DIAGNOSIS A. Ileum and colon, ileocolic resection: - Patchy chronic active enteritis with features consistent with the patient's known history of Crohn's disease. - Features of prior anastomosis site and possible ostomy site changes. - Benign lymph nodes. - See comment. B. Liver, biopsy: - Moderate macrovesicular steatosis. - Moderate hemosiderosis. - See comment. Current Outpatient Medications Medication Sig Dispense Refill oxyCODONE IR (ROXICODONE) 5 mg immediate release tablet Take 1 tablet by mouth every 6 hours as needed for up to 7 days. 28 tablet 0 Blood-Glucose Meter 1 Each three times daily. 1 Each 0 Lancets lancets Use as instructed 100 Each 5 blood sugar diagnostic (BLOOD GLUCOSE TEST) test strip Use as instructed 50 Strip 5 traZODone (DESYREL) 50 mg tablet Take 100 mg by mouth daily at bedtime. ustekinumab (STELARA) 90 mg/mL injection Inject 1 syringe (90 mg) under the skin every 6 weeks 1 mL 1 DULoxetine (CYMBALTA) 30 mg capsule Take 30 mg by mouth once daily. loperamide (IMODIUM) 2 mg cap(s) Take 2 mg by mouth as needed. Lactobacillus acidophilus (PROBIOTIC ORAL) Take 14 Billion Particle Units by mouth once daily. ustekinumab (STELARA) 130 mg/26 mL injection Inject 26 mL intravenously one time only for 1 dose. 26 mL 0 acyclovir (ZOVIRAX) 400 mg tablet Take 400 mg by mouth three times daily as needed. NIFEdipine ER (PROCARDIA XL) 30 mg 24 hr tablet Take 30 mg by mouth once daily. cyanocobalamin 1,000 mcg/mL Inject 1,000 mcg intramuscularly once every month. busPIRone HCl 7.5 mg tablet Take 15 mg by mouth twice daily. ALPRAZolam (XANAX) 0.25 mg tablet Take 0.25 mg by mouth as needed. 0 duloxetine hcl(CYMBALTA 60 MG CAP) Take 60 mg by mouth once daily. 0 No current facility-administered medications for this visit. ALLERGIES Allergen Reactions Cipro [Ciprofloxaci* Methotrexate Other: See Comments Dizziness, Rash, brain fog/felt drunk There were no vitals taken for this visit. Abdominal examination: soft, non-distended, and non-tender without masses or hernias. Wound is healing midline. Some irritation around stoma itself. Stoma beefy red with liquid stool being seen. . Anorectal: deferred Abrasive Grader Helper present: Yes Assessment Assessment: Appetite: Eating and drinking well BMs: See HPi Incision/wound: healing postoperatively Overall doing ok. Provider will reach out to gastroenterology for follow up and if patient should restart Stelara. Patient will also slowly increase activity. As far as advancing diet will defer this to nutrition for management due to managing TPN at this time. Patient will remain on full liquid diet at this time. Patient will start imodium 4 times a day to help slow down output. She will message in two weeks on progress to see if increase in Imodium is needed. Plan: Nutrition to advance diet. Provider will reach out to gastroenterology for Stelara recommendation. Ok to lift up to 10 lbs, advised to wait at least 3 months before very heavy/strenuous lifting and core work- we discussed hernia risk Call with any questions or concerns. Melba Reina APRN.MICHAEL documented in this encounter [facility] 11-23-2022 Note [facility] 11-22-2022 Note [facility] 11-21-2022 Note [facility] 11-20-2022 Note [facility] 11-19-2022 Note [facility] 11-18-2022 Note [facility] 11-18-2022 Note [facility] 11-17-2022 Miscellaneous Notes Called pt per request of Dr. Lion to change pt's In Person's appointment to a Virtual Visit. Pt states she remains in the hospital and to please cancel her appointment and she will call and re-schedule another time. advised. Coryr Ross RN November 17, 2022 4:38 PM documented in this encounter [facility] 11-17-2022 History of Past i llness Narrative Problem Noted Date Resolved Date Hypokalemia 11/17/2022 11/21/2022 Hyperchloremia 11/17/2022 11/21/2022 Hypocalcemia 11/17/2022 11/21/2022 Hypomagnesemia 11/17/2022 11/21/2022 Hypophosphataemia 11/17/2022 11/21/2022 Small bowel obstruction 04/22/2017 04/25/20 17 documented as of this encounter (statuses as of 12/01/2022) [facility] History of Past illness Narrative* Problem Noted Date Resolved Date Hypokalemia 11/17/2022 11/21/2022 Hyperchloremia 11/17/2022 11/21/2022 Hypocalcemia 11/17/2022 11/21/2022 Hypomagnesemia 11/17/2022 11/21/2022 Hypophosphataemia 11/17/2022 11/21/2022 Small bowel obstruction 04/22/2017 04/25/20 17 documented as of this encounter (statuses as of 12/01/2022) [facility] History of Past illness Narrative* Problem Noted Date Resolved Date Hypokalemia 11/17/2022 11/21/2022 Hyperchloremia 11/17/2022 11/21/2022 Hypocalcemia 11/17/2022 11/21/2022 Hypomagnesemia 11/17/2022 11/21/2022 Hypophosphataemia 11/17/2022 11/21/2022 Small bowel obstruction 04/22/2017 04/25/20 17 documented as of this encounter (statuses as of 12/02/2022) [facility] History of Past illness Narrative* Problem Noted Date Resolved Date Hypokalemia 11/17/2022 11/21/2022 Hyperchloremia 11/17/2022 11/21/2022 Hypocalcemia 11/17/2022 11/21/2022 Hypomagnesemia 11/17/2022 11/21/2022 Hypophosphataemia 11/17/2022 11/21/2022 Small bowel obstruction 04/22/2017 04/25/20 17 documented as of this encounter (statuses as of 12/05/2022) [facility] History of Past illness Narrative* Problem Noted Date Resolved Date Hypokalemia 11/17/2022 11/21/2022 Hyperchloremia 11/17/2022 11/21/2022 Hypocalcemia 11/17/2022 11/21/2022 Hypomagnesemia 11/17/2022 11/21/2022 Hypophosphataemia 11/17/2022 11/21/2022 Small bowel obstruction 04/22/2017 04/25/20 17 documented as of this encounter (statuses as of 12/06/2022) [facility] History of Past illness Narrative* Problem Noted Date Resolved Date Hypokalemia 11/17/2022 11/21/2022 Hyperchloremia 11/17/2022 11/21/2022 Hypocalcemia 11/17/2022 11/21/2022 Hypomagnesemia 11/17/2022 11/21/2022 Hypophosphataemia 11/17/2022 11/21/2022 Small bowel obstruction 04/22/2017 04/25/20 17 documented as of this encounter (statuses as of 12/08/2022) [facility] History of Past illness Narrative* Problem Noted Date Resolved Date Hypokalemia 11/17/2022 11/21/2022 Hyperchloremia 11/17/2022 11/21/2022 Hypocalcemia 11/17/2022 11/21/2022 Hypomagnesemia 11/17/2022 11/21/2022 Hypophosphataemia 11/17/2022 11/21/2022 Small bowel obstruction 04/22/2017 04/25/20 17 documented as of this encounter (statuses as of 12/09/2022) [facility] History of Past illness Narrative* Problem Noted Date Resolved Date Hypokalemia 11/17/2022 11/21/2022 Hyperchloremia 11/17/2022 11/21/2022 Hypocalcemia 11/17/2022 11/21/2022 Hypomagnesemia 11/17/2022 11/21/2022 Hypophosphataemia 11/17/2022 11/21/2022 Small bowel obstruction 04/22/2017 04/25/20 17 documented as of this encounter (statuses as of 12/23/2022) [facility] History of Past illness Narrative* Problem Noted Date Resolved Date Hypokalemia 11/17/2022 11/21/2022 Hyperchloremia 11/17/2022 11/21/2022 Hypocalcemia 11/17/2022 11/21/2022 Hypomagnesemia 11/17/2022 11/21/2022 Hypophosphataemia 11/17/2022 11/21/2022 Small bowel obstruction 04/22/2017 04/25/20 17 documented as of this encounter (statuses as of 12/23/2022) [facility] History of Past illness Narrative* Problem Noted Date Resolved Date Hypokalemia 11/17/2022 11/21/2022 Hyperchloremia 11/17/2022 11/21/2022 Hypocalcemia 11/17/2022 11/21/2022 Hypomagnesemia 11/17/2022 11/21/2022 Hypophosphataemia 11/17/2022 11/21/2022 Small bowel obstruction 04/22/2017 04/25/20 17 documented as of this encounter (statuses as of 12/23/2022) [facility] History of Past illness Narrative* Problem Noted Date Resolved Date Hypokalemia 11/17/2022 11/21/2022 Hyperchloremia 11/17/2022 11/21/2022 Hypocalcemia 11/17/2022 11/21/2022 Hypomagnesemia 11/17/2022 11/21/2022 Hypophosphataemia 11/17/2022 11/21/2022 Small bowel obstruction 04/22/2017 04/25/20 17 documented as of this encounter (statuses as of 12/26/2022) [facility] History of Past illness Narrative* Problem Noted Date Resolved Date Hypokalemia 11/17/2022 11/21/2022 Hyperchloremia 11/17/2022 11/21/2022 Hypocalcemia 11/17/2022 11/21/2022 Hypomagnesemia 11/17/2022 11/21/2022 Hypophosphataemia 11/17/2022 11/21/2022 Small bowel obstruction 04/22/2017 04/25/20 17 documented as of this encounter (statuses as of 12/29/2022) [facility] History of Past illness Narrative* Problem Noted Date Resolved Date Hypokalemia 11/17/2022 11/21/2022 Hyperchloremia 11/17/2022 11/21/2022 Hypocalcemia 11/17/2022 11/21/2022 Hypomagnesemia 11/17/2022 11/21/2022 Hypophosphataemia 11/17/2022 11/21/2022 Small bowel obstruction 04/22/2017 04/25/20 17 documented as of this encounter (statuses as of 12/31/2022) [facility] History of Past illness Narrative* Problem Noted Date Resolved Date Hypokalemia 11/17/2022 11/21/2022 Hyperchloremia 11/17/2022 11/21/2022 Hypocalcemia 11/17/2022 11/21/2022 Hypomagnesemia 11/17/2022 11/21/2022 Hypophosphataemia 11/17/2022 11/21/2022 Small bowel obstruction 04/22/2017 04/25/20 17 documented as of this encounter (statuses as of 01/13/2023) [facility] History of Past illness Narrative* Problem Noted Date Resolved Date Hypokalemia 11/17/2022 11/21/2022 Hyperchloremia 11/17/2022 11/21/2022 Hypocalcemia 11/17/2022 11/21/2022 Hypomagnesemia 11/17/2022 11/21/2022 Hypophosphataemia 11/17/2022 11/21/2022 Small bowel obstruction 04/22/2017 04/25/20 17 documented as of this encounter (statuses as of 01/14/2023) [facility] History of Past illness Narrative* Problem Noted Date Resolved Date Hypokalemia 11/17/2022 11/21/2022 Hyperchloremia 11/17/2022 11/21/2022 Hypocalcemia 11/17/2022 11/21/2022 Hypomagnesemia 11/17/2022 11/21/2022 Hypophosphataemia 11/17/2022 11/21/2022 Small bowel obstruction 04/22/2017 04/25/20 17 documented as of this encounter (statuses as of 01/16/2023) [facility] History of Past illness Narrative* Problem Noted Date Resolved Date Hypokalemia 11/17/2022 11/21/2022 Hyperchloremia 11/17/2022 11/21/2022 Hypocalcemia 11/17/2022 11/21/2022 Hypomagnesemia 11/17/2022 11/21/2022 Hypophosphataemia 11/17/2022 11/21/2022 Small bowel obstruction 04/22/2017 04/25/20 17 documented as of this encounter (statuses as of 01/19/2023) [facility] History of Past illness Narrative* Problem Noted Date Resolved Date Hypokalemia 11/17/2022 11/21/2022 Hyperchloremia 11/17/2022 11/21/2022 Hypocalcemia 11/17/2022 11/21/2022 Hypomagnesemia 11/17/2022 11/21/2022 Hypophosphataemia 11/17/2022 11/21/2022 Small bowel obstruction 04/22/2017 04/25/20 17 documented as of this encounter (statuses as of 01/20/2023) [facility] History of Past illness Narrative* Problem Noted Date Resolved Date Hypokalemia 11/17/2022 11/21/2022 Hyperchloremia 11/17/2022 11/21/2022 Hypocalcemia 11/17/2022 11/21/2022 Hypomagnesemia 11/17/2022 11/21/2022 Hypophosphataemia 11/17/2022 11/21/2022 Small bowel obstruction 04/22/2017 04/25/20 17 documented as of this encounter (statuses as of 01/24/2023) [facility] History of Past illness Narrative* Problem Noted Date Resolved Date Hypokalemia 11/17/2022 11/21/2022 Hyperchloremia 11/17/2022 11/21/2022 Hypocalcemia 11/17/2022 11/21/2022 Hypomagnesemia 11/17/2022 11/21/2022 Hypophosphataemia 11/17/2022 11/21/2022 Small bowel obstruction 04/22/2017 04/25/20 17 documented as of this encounter (statuses as of 01/26/2023) [facility] History of Past illness Narrative* Problem Noted Date Resolved Date Hypokalemia 11/17/2022 11/21/2022 Hyperchloremia 11/17/2022 11/21/2022 Hypocalcemia 11/17/2022 11/21/2022 Hypomagnesemia 11/17/2022 11/21/2022 Hypophosphataemia 11/17/2022 11/21/2022 Small bowel obstruction 04/22/2017 04/25/20 17 documented as of this encounter (statuses as of 01/31/2023) [facility] History of Past illness Narrative* Problem Noted Date Resolved Date Hypokalemia 11/17/2022 11/21/2022 Hyperchloremia 11/17/2022 11/21/2022 Hypocalcemia 11/17/2022 11/21/2022 Hypomagnesemia 11/17/2022 11/21/2022 Hypophosphataemia 11/17/2022 11/21/2022 Small bowel obstruction 04/22/2017 04/25/20 17 documented as of this encounter (statuses as of 02/01/2023) [facility] History of Past illness Narrative* Problem Noted Date Resolved Date Hypokalemia 11/17/2022 11/21/2022 Hyperchloremia 11/17/2022 11/21/2022 Hypocalcemia 11/17/2022 11/21/2022 Hypomagnesemia 11/17/2022 11/21/2022 Hypophosphataemia 11/17/2022 11/21/2022 Small bowel obstruction 04/22/2017 04/25/20 17 documented as of this encounter (statuses as of 02/14/2023) [facility] History of Past illness Narrative* Problem Noted Date Resolved Date Hypokalemia 11/17/2022 11/21/2022 Hyperchloremia 11/17/2022 11/21/2022 Hypocalcemia 11/17/2022 11/21/2022 Hypomagnesemia 11/17/2022 11/21/2022 Hypophosphataemia 11/17/2022 11/21/2022 Small bowel obstruction 04/22/2017 04/25/20 17 documented as of this encounter (statuses as of 02/18/2023) [facility] History of Past illness Narrative* Problem Noted Date Resolved Date Hypokalemia 11/17/2022 11/21/2022 Hyperchloremia 11/17/2022 11/21/2022 Hypocalcemia 11/17/2022 11/21/2022 Hypomagnesemia 11/17/2022 11/21/2022 Hypophosphataemia 11/17/2022 11/21/2022 Small bowel obstruction 04/22/2017 04/25/20 17 documented as of this encounter (statuses as of 02/20/2023) [facility] History of Past illness Narrative* Problem Noted Date Resolved Date Hypokalemia 11/17/2022 11/21/2022 Hyperchloremia 11/17/2022 11/21/2022 Hypocalcemia 11/17/2022 11/21/2022 Hypomagnesemia 11/17/2022 11/21/2022 Hypophosphataemia 11/17/2022 11/21/2022 Small bowel obstruction 04/22/2017 04/25/20 17 documented as of this encounter (statuses as of 02/21/2023) [facility] History of Past illness Narrative* Problem Noted Date Resolved Date Hypokalemia 11/17/2022 11/21/2022 Hyperchloremia 11/17/2022 11/21/2022 Hypocalcemia 11/17/2022 11/21/2022 Hypomagnesemia 11/17/2022 11/21/2022 Hypophosphataemia 11/17/2022 11/21/2022 Small bowel obstruction 04/22/2017 04/25/20 17 documented as of this encounter (statuses as of 03/14/2023) [facility] History of Past illness Narrative* Problem Noted Date Resolved Date Hypokalemia 11/17/2022 11/21/2022 Hyperchloremia 11/17/2022 11/21/2022 Hypocalcemia 11/17/2022 11/21/2022 Hypomagnesemia 11/17/2022 11/21/2022 Hypophosphataemia 11/17/2022 11/21/2022 Small bowel obstruction 04/22/2017 04/25/20 17 documented as of this encounter (statuses as of 03/15/2023) [facility] History of Past illness Narrative* Problem Noted Date Resolved Date Hypokalemia 11/17/2022 11/21/2022 Hyperchloremia 11/17/2022 11/21/2022 Hypocalcemia 11/17/2022 11/21/2022 Hypomagnesemia 11/17/2022 11/21/2022 Hypophosphataemia 11/17/2022 11/21/2022 Small bowel obstruction 04/22/2017 04/25/20 17 documented as of this encounter (statuses as of 03/23/2023) [facility] History of Past illness Narrative* Problem Noted Date Resolved Date Hypokalemia 11/17/2022 11/21/2022 Hyperchloremia 11/17/2022 11/21/2022 Hypocalcemia 11/17/2022 11/21/2022 Hypomagnesemia 11/17/2022 11/21/2022 Hypophosphataemia 11/17/2022 11/21/2022 Small bowel obstruction 04/22/2017 04/25/20 17 documented as of this encounter (statuses as of 03/23/2023) [facility] History of Past illness Narrative* Problem Noted Date Resolved Date Hypokalemia 11/17/2022 11/21/2022 Hyperchloremia 11/17/2022 11/21/2022 Hypocalcemia 11/17/2022 11/21/2022 Hypomagnesemia 11/17/2022 11/21/2022 Hypophosphataemia 11/17/2022 11/21/2022 Small bowel obstruction 04/22/2017 04/25/20 17 documented as of this encounter (statuses as of 03/31/2023) [facility] History of Past illness Narrative* Problem Noted Date Resolved Date Hypokalemia 11/17/2022 11/21/2022 Hyperchloremia 11/17/2022 11/21/2022 Hypocalcemia 11/17/2022 11/21/2022 Hypomagnesemia 11/17/2022 11/21/2022 Hypophosphataemia 11/17/2022 11/21/2022 Small bowel obstruction 04/22/2017 04/25/20 17 documented as of this encounter (statuses as of 04/04/2023) [facility] History of Past illness Narrative* Problem Noted Date Resolved Date Hypokalemia 11/17/2022 11/21/2022 Hyperchloremia 11/17/2022 11/21/2022 Hypocalcemia 11/17/2022 11/21/2022 Hypomagnesemia 11/17/2022 11/21/2022 Hypophosphataemia 11/17/2022 11/21/2022 Small bowel obstruction 04/22/2017 04/25/20 17 documented as of this encounter (statuses as of 04/12/2023) [facility] History of Past illness Narrative* Problem Noted Date Diagnosed Date Resolved Date Hypokalemia 11/17/2022 11/21/2022 Hyperchloremia 11/17/2022 11/21/2022 Hypocalcemia 11/17/2022 11/21/2022 Hypomagnesemia 11/17/2022 11/21/2022 Hypophosphataemia 11/17/2022 11/21/2022 Small bowel obstruction 04/22/201704/08 documented as of this encounter (statuses as of 04/19/2023) [facility] History of Past illness Narrative* Problem Noted Date Diagnosed Date Resolved Date Hypokalemia 11/17/2022 11/21/2022 Hyperchloremia 11/17/2022 11/21/2022 Hypocalcemia 11/17/2022 11/21/2022 Hypomagnesemia 11/17/2022 11/21/2022 Hypophosphataemia 11/17/2022 11/21/2022 Small bowel obstruction 04/22/201704/08 documented as of this encounter (statuses as of 04/20/2023) [facility] History of Past illness Narrative* Problem Noted Date Diagnosed Date Resolved Date Hypokalemia 11/17/2022 11/21/2022 Hyperchloremia 11/17/2022 11/21/2022 Hypocalcemia 11/17/2022 11/21/2022 Hypomagnesemia 11/17/2022 11/21/2022 Hypophosphataemia 11/17/2022 11/21/2022 Small bowel obstruction 04/22/201704/08 documented as of this encounter (statuses as of 04/22/2023) [facility] History of Past illness Narrative* Problem Noted Date Diagnosed Date Resolved Date Hypokalemia 11/17/2022 11/21/2022 Hyperchloremia 11/17/2022 11/21/2022 Hypocalcemia 11/17/2022 11/21/2022 Hypomagnesemia 11/17/2022 11/21/2022 Hypophosphataemia 11/17/2022 11/21/2022 Small bowel obstruction 04/22/201704/08 documented as of this encounter (statuses as of 04/27/2023) [facility] History of Past illness Narrative* Problem Noted Date Diagnosed Date Resolved Date Hypokalemia 11/17/2022 11/21/2022 Hyperchloremia 11/17/2022 11/21/2022 Hypocalcemia 11/17/2022 11/21/2022 Hypomagnesemia 11/17/2022 11/21/2022 Hypophosphataemia 11/17/2022 11/21/2022 Small bowel obstruction 04/22/201704/08 documented as of this encounter (statuses as of 05/18/2023) [facility] History of Past illness Narrative* Problem Noted Date Diagnosed Date Resolved Date Hypokalemia 11/17/2022 11/21/2022 Hyperchloremia 11/17/2022 11/21/2022 Hypocalcemia 11/17/2022 11/21/2022 Hypomagnesemia 11/17/2022 11/21/2022 Hypophosphataemia 11/17/2022 11/21/2022 Small bowel obstruction 04/22/201704/08 documented as of this encounter (statuses as of 05/19/2023) [facility] History of Past illness Narrative* Problem Noted Date Diagnosed Date Resolved Date Hypokalemia 11/17/2022 11/21/2022 Hyperchloremia 11/17/2022 11/21/2022 Hypocalcemia 11/17/2022 11/21/2022 Hypomagnesemia 11/17/2022 11/21/2022 Hypophosphataemia 11/17/2022 11/21/2022 Small bowel obstruction 04/22/201704/08 documented as of this encounter (statuses as of 05/29/2023) [facility] History of Past illness Narrative* Problem Noted Date Diagnosed Date Resolved Date Hypokalemia 11/17/2022 11/21/2022 Hyperchloremia 11/17/2022 11/21/2022 Hypocalcemia 11/17/2022 11/21/2022 Hypomagnesemia 11/17/2022 11/21/2022 Hypophosphataemia 11/17/2022 11/21/2022 Small bowel obstruction 04/22/201704/08 documented as of this encounter (statuses as of 06/07/2023) [facility] History of Past illness Narrative* Problem Noted Date Diagnosed Date Resolved Date Hypokalemia 11/17/2022 11/21/2022 Hyperchloremia 11/17/2022 11/21/2022 Hypocalcemia 11/17/2022 11/21/2022 Hypomagnesemia 11/17/2022 11/21/2022 Hypophosphataemia 11/17/2022 11/21/2022 Small bowel obstruction 04/22/201704/08 documented as of this encounter (statuses as of 06/07/2023) [facility] History of Past illness Narrative* Problem Noted Date Diagnosed Date Resolved Date Hypokalemia 11/17/2022 11/21/2022 Hyperchloremia 11/17/2022 11/21/2022 Hypocalcemia 11/17/2022 11/21/2022 Hypomagnesemia 11/17/2022 11/21/2022 Hypophosphataemia 11/17/2022 11/21/2022 Small bowel obstruction 04/22/201704/08 documented as of this encounter (statuses as of 07/21/2023) [facility] History of Past illness Narrative* Problem Noted Date Diagnosed Date Resolved Date Hypokalemia 11/17/2022 11/21/2022 Hyperchloremia 11/17/2022 11/21/2022 Hypocalcemia 11/17/2022 11/21/2022 Hypomagnesemia 11/17/2022 11/21/2022 Hypophosphataemia 11/17/2022 11/21/2022 Small bowel obstruction 04/22/201704/08 documented as of this encounter (statuses as of 07/23/2023) [facility] History of Past illness Narrative* Problem Noted Date Diagnosed Date Resolved Date Hypokalemia 11/17/2022 11/21/2022 Hyperchloremia 11/17/2022 11/21/2022 Hypocalcemia 11/17/2022 11/21/2022 Hypomagnesemia 11/17/2022 11/21/2022 Hypophosphataemia 11/17/2022 11/21/2022 Small bowel obstruction 04/22/201704/08 documented as of this encounter (statuses as of 08/02/2023) [facility] History of Past illness Narrative* Problem Noted Date Diagnosed Date Resolved Date Hypokalemia 11/17/2022 11/21/2022 Hyperchloremia 11/17/2022 11/21/2022 Hypocalcemia 11/17/2022 11/21/2022 Hypomagnesemia 11/17/2022 11/21/2022 Hypophosphataemia 11/17/2022 11/21/2022 Small bowel obstruction 04/22/201704/08 documented as of this encounter (statuses as of 08/03/2023) [facility] History of Past illness Narrative* Problem Noted Date Diagnosed Date Resolved Date Hypokalemia 11/17/2022 11/21/2022 Hyperchloremia 11/17/2022 11/21/2022 Hypocalcemia 11/17/2022 11/21/2022 Hypomagnesemia 11/17/2022 11/21/2022 Hypophosphataemia 11/17/2022 11/21/2022 Small bowel obstruction 04/22/201704/08 documented as of this encounter (statuses as of 08/17/2023) [facility] History of Past illness Narrative* Problem Noted Date Diagnosed Date Resolved Date Hypokalemia 11/17/2022 11/21/2022 Hyperchloremia 11/17/2022 11/21/2022 Hypocalcemia 11/17/2022 11/21/2022 Hypomagnesemia 11/17/2022 11/21/2022 Hypophosphataemia 11/17/2022 11/21/2022 Small bowel obstruction 04/22/201704/08 documented as of this encounter (statuses as of 08/17/2023) [facility] Miscellaneous Notes* Telephone Encounter - Stephy Eden - 11/14/2022 9:17 AM EST SPECIALTY CARE COORDINATION FOLLOW-UP NOTE Provider Action/FYI scheduling call Patient identified by name and date of . YES Spoke to patient Summary: Patient is currently admitted to hospital. We will follow up with patient after discharge as needed Concerns: none Manager Strategic Partnerships plan for next outreach: No further follow up needed at this time Signature Stephy Eden November 14, 2022 [facility] Miscellaneous Notes* Telephone Encounter - Stephy Eden - 11/10/2022 3:07 PM EST SPECIALTY CARE COORDINATION FOLLOW-UP NOTE Provider Action/FYI scheduling call Summary: Left message on [email or web address] requesting a callback to office to schedule a virtual visit with . Concerns: none Manager Strategic Partnerships plan for next outreach: No further follow up needed at this time Signature Stephy Eden November 10, 2022 documented in this [facility]Kind[facility]01-[facility]23 [facility]12-27-2022 Miscellaneous Notes* Telephone Encounter - Dyan Sr - 10/04/2022 1:00 PM EST Patient called last week to schedule for her Venofer infusions but mentioned she will be switching insurance companies as of October 09 to [employer]. Unable to register insurance until then. I advised patient I will call her in the beginning of the year when I am able to get her insurance registered and scheduled. Patient gave me insurance information and verbalized understanding. Dyan Sr documented in [facility]12[facility]2022 Miscellaneous Notes* Telephone Encounter - Ricky Garces APRN.MICHAEL - 09/22/2022 9:35 AM EST Call made to patient at this time to discuss recent lab results from OSH. Will scan results into system, below are the abnormal labs supporting the IV venofer beacon plan. Hgb 9.4 Iron: 47 TIBC 458 TSaturation: 10 Ferritin 26 Cr:1.06 BUN: 21 Assessment/Plan: Elvira Syed is a 57yo female who presented to anemia virtual clinic on 09/16 for evaluation of anemia. Complete anemia gillespie completed with CBC, CMP, iron studies, B12 and folate. Found to have underlying renal disease and iron deficiency. With hx of chrons disease, likely a decreased absorption issue. Does not tolerate PO iron Anemia of renal disease Other iron deficiency anemia Chrons disease -Venofer 200mg IV weekly x4 doses, beacon plan in place -Will have iron infusions at [place] location -repeat CBC, CMP, iron studies 7 weeks after last infusion, 12/15/2022 with a VV follow up 1-2 days later Discussed common infusion reaction and SE of IV iron. Patient amenable to above plan. [place]nut plan signed and sent to [place]. Patient to call with any questions or concerns. Ricky Garces APRN.CNP September 22, 2022 9:56 AM documented in this encounter[facility]12-[facility]-2022 Instructions* Patient Instructions* Ricky Garces APRN.CNP - 09/16/2022 1:34 PM EST Images from the original note were not included. What is anemia? Anemia is a blood disorder that occurs when there is not enough hemoglobin in a person's blood. Hemoglobin is a substance in the red blood cells that makes it possible for the blood to transport (carry) oxygen through the body. When a person develops anemia, he or she is said to be anemic. There are a number of different types of anemia. Some types present only mild health problems, while others are much more severe. Each type of anemia results from one of these factors: The body cannot make enough hemoglobin The body makes hemoglobin, but the hemoglobin doesn't work right The body does not make enough red blood cells The body breaks down red blood cells too fast What are the symptoms of anemia? There are a number of symptoms that are common to all types of anemia. including: Feeling tired Difficulty breathing Dizziness Headache Feeling cold weakness pale skin What causes anemia? A lack of iron in the body is the most common cause of anemia. This type of anemia is called iron-deficiency anemia. Your body uses iron to make hemoglobin. Without the needed amount of iron, your body cannot make hemoglobin. Factors that can decrease your body's stores of iron include: Blood loss (caused within the body by ulcers, some cancers, and other conditions; and, in women, during monthly periods) An iron-poor diet An increase in the body's need for iron (in women during ) Can iron-deficiency anemia be treated? Yes. This type of anemia can be treated and cured. First, your health care provider will determine if the anemia is being caused by a poor diet or a more serious health problem. Then, you can be treated for both the anemia and its cause. Iron-deficiency anemia is treated with: Iron supplements taken by the mouth: Foods high in iron What foods are high in iron? The following foods are good sources of iron: Oysters Kidney beans Beef liver Tofu Beef (ngoc roast, lean ground beef) Alvin leg Whole wheat bread Tuna Eggs Shrimp Peanut butter Leg-of-kc Brown rice Raisin bran (enriched) molasses documented in this encounter[facility]12[facility] History of Present illness Narrative* Ricky Garces APRN.MICHAEL - 09/16/2022 8:49 AM EST Images from the original note were not included. Distance Health Visit [facility] VIRTUAL ANEMIA CONSULTATION NOTE Hematologic Oncology and Blood Disorders This visit is a Virtual MyChart video visit encounter which required patient- provider interaction for the medical decision making as documented below. Persons Present: patient Elvira Syed has consented to this distance health encounter. PATIENT NAME: Elvira Syed DATE OF SERVICE: September 16, 2022 The patient is referred by Arnie Lion for further evaluation of Anemia. CHIEF COMPLAINT: Anemia HISTORY OF THE PRESENT ILLNESS: Elvira Syed presents today for evaluation of her anemia. Reports history of Chron's since the age of 13. Has had difficulty with absoption and oral iron supplementation intolerance. Has been having chrons exacerbation for quite a while. Started taking steroids recently due to daughters wedding, which improved her symptoms, but recurred once stopped taking the steroids. DevelopedAKI due to her dehydration secondary to exacerbation, labs completed on 09/12 indicating normalized creatinine. Started on MTX with a multivitamin. Recent lab values are indicating anemia, so her doctor recommended her to hematology. Lately has been wanting to sleep all the time, and craving ice. Symptoms/History Related to Anemia: Fatigue: Yes, quite a while. Sleeping a lot. Pica: Yes SOB: No Chest Pain/Palpitations: No Lightheadedness: No Dizziness: No Headache: Yes, over the last several days Brittle hair/nails: No Restless Legs: Yes Bleeding: No Chills: Yes Difficulty concentrating/brain fog: Yes History of anemia: No Oral Iron History: Yes History Blood Transfusions/Intravenous Iron infusions: Yes Family History of Anemia/Blood Disorders: No Alcohol/Drug Use: No History of Pregnancies: , Pre-eclamspia Prior Hematology Consult in Past or Bone Marrow Biopsy: No History of Blood Donation: No Absorption Concerns/Gastric Surgery/Celiac Disease: Yes-->chrons Colonoscopy UTD: No PAST MEDICAL HISTORY: PAST MEDICAL HISTORY Diagnosis Date Crohn's disease (HCC) Regional enteritis of small intestine (HCC) Severe pre-eclampsia, antepartum Steroid-induced avascular necrosis of knee PAST SURGICAL HISTORY: PAST SURGICAL HISTORY Procedure Laterality Date PAST SURGICAL HISTORY OF 1992,1993 ileostomy reversal PAST SURGICAL HISTORY OF 2002 galbladder PAST SURGICAL HISTORY OF 1994,1997 c-sections PAST SURGICAL HISTORY OF left breast reduction PAST SURGICAL HISTORY OF 2008 right breast reduction PAST SURGICAL HISTORY OF 2004 sinus surgery CURRENT MEDICATIONS: methotrexate 2.5 mg tablet Take 6 tablets by mouth every Monday. Take by mouth as instructed once each week. ustekinumab (STELARA) 90 mg/mL injection Inject 1 syringe (90 mg) under the skin every 6 weeks predniSONE (DELTASONE) 5 mg tablet Take 1 tablet by mouth twice daily. predniSONE (DELTASONE) 10 mg tablet Take 2 tablets by mouth once daily. DULoxetine (CYMBALTA) 30 mg capsule Take 30 mg by mouth once daily. loperamide (IMODIUM) 2 mg cap(s) Take 2 mg by mouth as needed. Lactobacillus acidophilus (PROBIOTIC ORAL) Take 14 Billion Particle Units by mouth twice daily. ustekinumab (STELARA) 90 mg/mL injection Inject 1 mL subcutaneously every 8 weeks. diphenoxylate-atropine (LOMOTIL) 2.5-0.025 mg per tablet TAKE ONE TABLET BY MOUTH FOUR TIMES A DAY ustekinumab (STELARA) 130 mg/26 mL injection Inject 26 mL intravenously one time only for 1 dose. acyclovir (ZOVIRAX) 400 mg tablet Take 400 mg by mouth three times daily as needed. NIFEdipine ER (PROCARDIA XL) 30 mg 24 hr tablet Take 30 mg by mouth once daily. cyanocobalamin (VITAMIN B-12) 1,000 mcg/mL soln Inject 1,000 mcg intramuscularly once every month. busPIRone HCl 7.5 mg tablet Take 15 mg by mouth twice daily. COMPOUNDED PRESCRIPTION Probiotic Digestive System Support ALPRAZolam (XANAX) 0.25 mg ORAL tablet Take 0.25 mg by mouth as needed. ZOLPIDEM 10 MG TAB Take 10 mg by mouth at bedtime as needed. duloxetine hcl(CYMBALTA 60 MG CAP) Take 60 mg by mouth once daily. ALLERGIES: ALLERGIES Allergen Reactions Cipro [Ciprofloxaci* FAMILY HISTORY: FAMILY HISTORY Problem Relation Age of Onset Coronary Artery Disease Mother Hypertension Mother Lipids Mother Stroke Mother Asthma Father GI Father SOCIAL HISTORY: Social History Tobacco Use Smoking status: Never Smokeless tobacco: Never Substance Use Topics Alcohol use: No Drug use: No COMPLETE REVIEW OF SYSTEMS: Pertinent positives as above, all other systems reviewed and negative VIDEO PHYSICAL EXAMINATION: (if done, performed via video enabled technology) GENERAL: alert and appropriate, in no distress, well-hydrated, well nourished, and happy, smiling, interactive RESPIRATORY: breathing non-labored NEUROLOGIC: no obvious deficit Laboratory: CBC with Auto Differential Order: [id number] Component Ref Range & Units 1 mo ago WBC 3.5 - 11.3 k/uL 11.8 High RBC 3.95 - 5.11 m/uL 3.47 Low Hemoglobin 11.9 - 15.1 g/dL 9.1 Low Hematocrit 36.3 - 47.1 % 31.3 Low MCV 82.6 - 102.9 fL 90.2 MCH 25.2 - 33.5 pg 26.2 MCHC 28.4 - 34.8 g/dL 29.1 RDW 11.8 - 14.4 % 17.7 High Platelets 138 - 453 k/uL 336 MPV 8.1 - 13.5 fL 9.7 NRBC Automated 0.0 per 100 WBC 0.0 RBC Morphology ANISOCYTOSIS PRESENT Seg Neutrophils 36 - 65 % 62 Lymphocytes 24 - 43 % 27 Monocytes 3 - 12 % 9 Eosinophils % 1 - 4 % 1 Basophils 0 - 2 % 1 Immature Granulocytes 0 % 0 Segs Absolute 1.50 - 8.10 k/uL 7.24 Absolute Lymph # 1.10 - 3.70 k/uL 3.22 Absolute Graham # 0.10 - 1.20 k/uL 1.10 Absolute Eos # 0.00 - 0.44 k/uL 0.13 Basophils Absolute 0.00 - 0.20 k/uL 0.06 Absolute Immature Granulocyte 0.00 - 0.30 k/uL 0.04 Resulting [facility] [employer] Specimen Collected: 08/16/22 3:15 PM Last Resulted: 08/16/22 10:18 PM Received From: [facility] Result Received: 09/07/22 1:45 PM Contains abnormal data Comprehensive Metabolic Panel, Fasting Order: [id number] Component Ref Range & Units 1 mo ago Glucose, Fasting 70 - 99 mg/dL 85 BUN 6 - 20 mg/dL 27 High Creatinine 0.50 - 0.90 mg/dL 1.06 High Est, Glom Filt Rate >60 mL/min/1.73m2 >60 Comment: Effective Jul 11, 2022 These results are not intended for use in patients <18 years of age. eGFR results are calculated without a race factor using the 2020 CKD-EPI equation. Careful clinical correlation is recommended, particularly when comparing to results calculated using previous equations. The CKD-EPI equation is less accurate in patients with extremes of muscle mass, extra-renal metabolism of creatine, excessive creatine ingestion, or following therapy that affects renal tubular secretion. Calcium 8.6 - 10.4 mg/dL 8.8 Sodium 135 - 144 mmol/L 140 Potassium 3.7 - 5.3 mmol/L 4.1 Chloride 98 - 107 mmol/L 111 High CO2 20 - 31 mmol/L 20 Anion Gap 9 - 17 mmol/L 9 Alkaline Phosphatase 35 - 104 U/L 80 ALT 5 - 33 U/L 18 AST <32 U/L 12 Total Bilirubin 0.3 - 1.2 mg/dL 0.2 Low Total Protein 6.4 - 8.3 g/dL 6.4 Albumin 3.5 - 5.2 g/dL 3.7 Albumin/Globulin Ratio 1.0 - 2.5 1.4 Resulting Agency [email or web address] [email or web address] Specimen Collected: 08/16/22 3:15 PM Last Resulted: 08/16/22 11:16 PM Received From: [facility] Result Received: 09/07/22 1:45 PM Assessment and Plan: Anemia, unspecified type [D64.9] SERENITY in August, resolved on labs completed 09/12 Hx of Chron's No bleeding No recent anemia gillespie, will complete gillespie and call with results -CBC, CMP, folate, B12, ferritin, Fe/TIBC faxed to [facility] in [place] -Will call with results and recommendations Crohn's disease of small and large intestines with complication (HCC) [K50.819] On treatment with MTX, and Stelara Will obtain above labs to evaluate for malabsorption The patient's questions were answered to satisfaction. Thank you for the consult, it was a pleasure meeting Elvira Syed today. Total Time Spent: more than 30 minutes [id number] with the patient and/or via video/audio in preparing for today's visit for medical decision making, documentation, and discussion with providers involved with the care, and over half the time was devoted to counseling and/or coordination of care. Ricky Garces APRN.MICHAEL [facility] Hematology Oncology & Blood Disorders 09/16/2022 8:52 AM CC: Arnie Lion [id number] [facility] [id number] documented in this encounterKindred Healthcare12-08-2022 [facility] History of Present illness Narrative* Malathi Boogie (Family Support Worker) - 09/15/2022 10:27 AM EST Rita Lion, Effective 10/09/22, the [facility] free drug program for Tobylara will no longer be covering insured patients. These patients will need to apply for the new [place] PAP program. [facility] will no longer be the filling pharmacy for patients on the new [place] PAP program. As such, we will not be coordinating these patients' applications. The new application can be found at [email or web address] (Patient Enrollment Form). We will do our best to provide one final fill of Stelara for your patient, but we advise that you coordinate with the patient MAGALI to complete the application for enrollment in the new JJPAF program.Note: current dose is due 10/05 and shipment has been arranged for this dose, next dose will be due ~ 11/16/22. Please reach out to me or [facility] at [phone] with any questions. Thanks, Malathi Boogie CPhT, [place], Hepatology/Cardiology [facility] P: [phone] F: [phone] documented in this encounterKindred Healthcare12-08-2022 History of Present illness Narrative* Malathi Boogie (Family Support Worker) - 09/15/2022 10:00 AM EST [facility] Refill Assessment Medication(s): Simon Patient's current medication list and adherence status to current therapy were reviewed by Specialty Pharmacy clinical pharmacist to identify any new drug interactions or non-compliance to therapy. Therapy continues to be appropriate for disease, patient response, and medical condition. Verification of therapeutic benefit and effectiveness with current therapy was completed. Adverse events, barriers in adherence, and side effects were assessed and addressed if applicable. Will proceed with refill with no changes in therapy - patient progressing towards achieving therapeutic goals based on medication- specific laboratory parameters, disease state markers and outcomes. Truck Despatcher Assessment Patient confirmed: Yes Med/dose confirmed: Yes Supplies needed: No supplies needed Missed doses: No Estimated days supply on hand: 0 Next cycle/dose due: 10/05/22 Copay amount: 0 Payment confirmed: Yes Delivery method: FedEx Signature required: No Delivery address: [address] [place] [address], [facility] [id number] Delivery date: 09/20/22 Questions or concerns for the pharmacist?: No [facility] Visit Assessment - Inflammatory Conditions: Assessment to use: Refill Vaccination Assessment: Date of influenza vaccination reminder: 07/05/2022 Date of most recent vaccination assessment: 07/05/2022 Malathi Boogie (Family Support Worker) * Malathi Boogie (Family Support Worker) - 09/15/2022 10:00 AM EST [facility] Discontinuation Assessment: Disease group: Inflammatory Medication: STELARA SUBCUTANEOUS Discontinue reason: Patient assistance program enrollment and Change of pharmacy Patient will apply for new PAP program through [employer], and upon approval [facility] will no [facility] be [facility] for this program. Malathi Boogie CPhT, Brass Chaser, Hepatology/Cardiology [facility] P: [phone] F: [phone] documented in this encounterKindred Healthcare12-06-2022 [facility]12-[facility] History of Present illness Narrative* Arnie Lion MD - 09/13/2022 10:02 AM EST Telephone visit,20 minutes patient agree 57 yo with long standing Crohn's disease and short bowel syndrome. Recent CT scan IMPRESSION: Long segment stricture with imaging findings of active inflammation of the distal ileum (approximately 30 cm segment, beginning 5 cm upstream of the ileocolic anastomosis). Additional short segment jejunal stricture with imaging findings of active inflammation. On Stelara every 6 weeks and is still symptomatic. Steroids have helped in the past, but have too many side effects. Last hgb done locally, 9.1 Crohn's disease - will Continue stelara at current doses (patient assist). If it is denied, will restart Humira. MTX 15mg weekly with a multivitamin daily Hematology consult tor iron infusion. Arnie Lion MD documented in this encounterKindred [facility]12-05-[facility] History of Present illness Narrative* Valorie Boyd RN - 09/12/2022 12:00 PM EST Radiology Service Progress Note DATE OF SERVICE: September 12, 2022 TIME: 11:20 AM PATIENT WEIGHT: 98 LBS PATIENT IDENTITY VERIFICATION COMPLETED USING TWO (2) STANDARD IDENTIFIERS: Name and Date of confirmed by patient verbally and Name and Date of confirmed by identification band. FALL SCREENING: Has the patient had 2 falls in the last year or 1 fall with injury or currently using an Ambulatory Assistive Device (Walker, Cane, Wheelchair, Crutches, etc.)? No PATIENT GENDER DATA: Female. status: : No status: NO. ALLERGIES: Reviewed and unchanged CONTRAST ALLERGY: No EXAM: CT -CONTRAST INDUCED NEPHROPATHY RISK FACTORS: Not applicable CREATININE: Creatinine Date Value Ref Range Status 06/26/2020 0.90 0.58 - 0.96 mg/dL Final 04/25/2017 0.96 0.58 - 0.96 mg/dL Final Creatinine (POCT) Date Value Ref Range Status 09/12/2022 1.30 0.7 - 1.4 mg/dL Final eGFR (POCT) Date Value Ref Range Status 09/12/2022 48 mL/min/1.73 m2 Final eGFR- Date Value Ref Range Status 06/26/2020 >60 Final P.O.C.T. RESULTS: POC done: Yes, See Lab Tab September 12, 2022 TREATMENT: No Hydration needed. IV SITE: Ambulatory: A peripheral IV was started in the Right antecubital site with a Angio cath: 22 gauge. and A Saline lock was inserted per protocol IV SITE APPEARANCE: Clean,Dry and Intact SIGNATURE: Valorie Boyd RN PATIENT NAME: Elvira Syed DATE: September 12, 2022 TIME: 11:20 AM * RT Mark(R) - 09/12/2022 12:00 PM EST Radiology Service Progress Note PATIENT NAME: Elvira Syed DATE OF SERVICE: September 12, 2022 TIME: 12:29 PM PATIENT IDENTITY VERIFICATION COMPLETED USING TWO (2) IDENTIFIERS: Name and Date of confirmedby patient verbally and Name and Date of confirmed by identification band. FALL SCREENING: Has the patient had 2 falls in the last year or 1 fall with injury or currently using an Ambulatory Assistive Device (Walker, Cane, Wheelchair, Crutches, etc.)? No PATIENT GENDER DATA: Female. status: : No status: NO. PATIENT RELEVANT IMPLANT DATA REVIEWED: Yes RADIOLOGY DEPARTMENT: CT; Exam(s) Completed: Abdomen/Pelvis PERIPHERAL IV DATA: Site assessment: Clean,Dry and Intact, Site disposition Discontinued SIGNED BY: RT Mark(R) September 12, 2022 12:29 PM documented in this encounterKindred Healthcare11-23-2022 Miscellaneous Notes* Telephone Encounter - Corry Ross RN - 08/31/2022 3:23 PM EST Called pt and left a VM message inquiring how much more prednisone does she need for her steroid taper. Also indicated pt has not had her labs done since March; since she has questions about her iron levels.Office number left. Corry Ross RN August 31, 2022 3:29 PM documented in this encounterKindred Healthcare11-07-2022 History of Present illness Narrative* Angela Richadelaidekayleen - 08/15/2022 11:38 AM EST [facility] Refill Assessment Medication(s): Simon Patient's current medication list and adherence status to current therapy were reviewed by Specialty Pharmacy clinical pharmacist to identify any new drug interactions or non-compliance to therapy. Therapy continues to be appropriate for disease, patient response, and medical condition. Verification of therapeutic benefit and effectiveness with current therapy was completed. Adverse events, barriers in adherence, and side effects were assessed and addressed if applicable. Will proceed with refill with no changes in therapy - patient progressing towards achieving therapeutic goals based on medication- specific laboratory parameters, disease state markers and outcomes. Truck Despatcher Assessment Med/dose confirmed: Yes Supplies needed: No supplies needed Missed doses: No Estimated days supply on hand: 0 Next cycle/dose due: 08/24/22 Copay amount: 0 Payment confirmed: Yes Delivery method: FedEx Signature required: No Delivery address: [address] [place] [address] [address] [facility] [address] Delivery date: 08/18/22 Questions or concerns for the pharmacist?: No Patient was informed about changes to the JJPAF program next. I advised her to call or go online tostart the process just in case. [facility] Visit Assessment - Inflammatory Conditions: Assessment to use: Refill Vaccination Assessment: Date of influenza vaccination reminder: 07/05/2022 Date of most recent vaccination assessment: 07/05/2022 Refill Assessment: Concurrent med therapy and DMARD screening: Yes Assessment of injection issues: Yes Screening for infection: Yes Adverse reactions and mitigation: Yes COPD monitoring ([place]): N/A Assessment of efficacy: Yes Angela Alvarez CPhT [facility] [phone] Ellen Torres RPh Clinical Pharmacist, Hepatology and Biologics [facility] P: ; F: Pool: P [facility] ([id number]) documented in this encounterKindred Healthcare08-15-2022 History of Present illness Narrative* Michela Pia (Family Support Worker) - 05/23/2022 8:54 AM EDT [facility] Refill Assessment Medication(s): Stelara 90mg - q6w dosing Continues on six week Stelara gastro dosing Patient's current medication list and adherence status to current therapy were reviewed by Specialty Pharmacy clinical pharmacist to identify any new drug interactions or non-compliance to therapy. Therapy continues to be appropriate for disease, patient response, and medical condition. Verification of therapeutic benefit and effectiveness with current therapy was completed. Adverse events, barriers in adherence, and side effects were assessed and addressed if applicable. Will proceed with refill with no changes in therapy - patient progressing towards achieving therapeutic goals based on medication- specific laboratory parameters, disease state markers and outcomes. [facility] Visit Assessment - Inflammatory Conditions: Assessment to use: Refill Non-Clinical Assessment: Patient confirmed: Yes Med/dose confirmed: Yes Supplies needed: No Missed doses: No Estimated days supply on hand: 0 Next cycle/dose due: 06/01/2022 Copay amount: 0 Payment confirmed: Yes Address confirmed: Yes Delivery method: FedEx Delivery address: [address] [place] [address] [address]; [place], [place] Delivery date: 05/25/2022 Patient has questions: No Refill Assessment: Concurrent med therapy and DMARD screening: Yes Assessment of injection issues: Yes Screening for infection: Yes Adverse reactions and mitigation: Yes COPD monitoring ([place]cia): N/A Assessment of efficacy: Yes Michela Palacio (Family Support Worker) Ellen Torres [facility] Clinical Pharmacist, Hepatology and Biologics [facility] P: ; F: Pool: P [facility] ([id number]) documented in this encounterKindred Healthcare08-01-2022 Miscellaneous Notes* Telephone Encounter - Saad Mccormack RP - 05/09/2022 11:33 AM EDT Pt will be due for a refill of Stelara soon. If therapy is being continued, please sign this order request to send refill via eRx to [facility]. Thanks! Saad Mccormack PharmD Clinical Pharmacist, Biologics, Neurology, and Hepatology [facility] ; Pool: P [facility] Pool #: [id number] documented in this encounterKindred Healthcare2022 Miscellaneous Notes* Telephone Encounter - Katherine Wang [facility] - 03/03/2022 11:26 AM EDT Pt will be due for a refill of Stelara soon. If therapy is being continued, please sign this order request to send refill via eRx to [facility]. Thanks! Pending Prescriptions Disp Refills STELARA 90 MG/ML SUBCUTANEOUS SYRINGE 1 mL 1 Sig: Inject 1 syringe (90 mg) under the skin every 6 weeks JOVAN: No Rosibel Wang PharmD Clinical Pharmacist, Biologics, Neurology, and Hepatology [facility] ; Pool: P [facility] Pool #: [id number] documented in this encounterKindred Healthcare04-11-2022 History of Present illness Narrative* Michela KruegerFamily Support Worker) - 01/17/2022 9:24 AM EDT [facility] Refill Assessment Medication(s): Stelara - 42 ds Therapy continues to be appropriate for disease, patient response, and medical condition. Verification of therapeutic benefit and effectiveness with current therapy. Adverse events, barriers in adherence, and side effects assessed and addressed. Will proceed with refill with no changes. [facility] Visit Assessment - Inflammatory Conditions: Assessment to use: Refill Non-Clinical Assessment: Patient confirmed: Yes Med/dose confirmed: Yes Supplies needed: No Missed doses: No Estimated days supply on hand: 0 Next cycle/dose due: 01/26/2022 Copay amount: 0 Payment confirmed: Yes Address confirmed: Yes Delivery method: [employer] Delivery address: [address] [place] [address] [address]; [place], [place] Delivery date: 01/19/2022 Patient has questions: No Vaccination Assessment: Date of influenza vaccination reminder: 06/09/2021 Date of most recent vaccination assessment: 06/25/2021 Michela KruegerMr. Number) documented in this encounterKindred Healthcare11-20-2021 Hospital Discharge instructions* Instructions* Jonah Falcon Jr., MD - 08/28/2021 Drink plenty of fluids. Return if you continue to have vomiting and diarrhea. Isolate yourself for a full 10 days from onset of Covid symptoms. Return if you get worse. * Attachments The following attachments cannot be sent through Care Everywhere. * Nausea and Vomiting ([place]) * Hypokalemia ([place]) * Coronavirus Disease (COVID-19): General Info ([place]) documented in this [facility] Phone: 1(943) 677-344411-19-2021 Hospital Discharge instructions* Instructions* Samantha Dickinson RN - 08/27/2021 CASIRIVIMAB and IMDEVIMAB You received an infusion of CASIRIVIMAB and IMDEVIMAB authorized for emergency use by the FDA. You should continue to self-isolate and use infection control measures (wear mask, isolate, social distance, avoid sharing personal items, clean and disinfect high touch surfaces, and frequent handwashing) according to CDC guidelines. Report all changes in your health to your doctors as soon as po ssible. Symptoms to report to your physician immediately or seek emergency medical care: Fever, Chills, Shakes, Hives, Rash, Itching, Swelling of lips, mouth or throat Shortness of breath, difficulty breathing or wheezing, Chest pain Cough, Sneezing Fatigue, muscle or joint pain/aching, Headache Weakness, numbness, tingling is any part of your body Low blood pressure/Oxygen saturation levels Dizziness, feeling faint Nausea These are not all of the possible side effects. Serious and unexpected side effects may happen. documented in this [employer] Phone: [phone] 579-908211-19-2021 History of Present illness Narrative* Samantha Dickinson RN - 08/27/2021 10:00 AM EST Reviewed FDA EUA Fact sheet and After Infusion Information sheet for discharge. Written copies provided to patient. Verbalized understanding. Encouraged PO fluids and rest. * Samantha Dickinson RN - 08/27/2021 8:33 AM EST Patient presents for scheduled monoclonal antibody infusion. Confirmed meets criteria. VSS. Educated. Infusion in progress and tolerating well. documented in this [employer] Phone: [phone] 308-866807-15-2017 History of Past illness Narrative* Problem Noted Date Resolved Date Small bowel obstruction 04/22/2017 04/25/20 17 documented as of this encounter (statuses as of 01/17/2022) [address]15-2017 History of Past illness Narrative* Problem Noted Date Resolved Date Small bowel obstruction 04/22/2017 04/25/20 17 documented as of this encounter (statuses as of 03/03/2022) [address]15-2017 History of Past illness Narrative* Problem Noted Date Resolved Date Small bowel obstruction 04/22/2017 04/25/20 17 documented as of this encounter (statuses as of 04/12/2022) [address]15-2017 History of Past illness Narrative* Problem Noted Date Resolved Date Small bowel obstruction 04/22/2017 04/25/20 17 documented as of this encounter (statuses as of 05/09/2022) [address]15-2017 History of Past illness Narrative* Problem Noted Date Resolved Date Small bowel obstruction 04/22/2017 04/25/20 17 documented as of this encounter (statuses as of 05/23/2022) [address]15-2017 History of Past illness Narrative* Problem Noted Date Resolved Date Small bowel obstruction 04/22/2017 04/25/20 17 documented as of this encounter (statuses as of 07/04/2022) [address]15-2017 History of Past illness Narrative* Problem Noted Date Resolved Date Small bowel obstruction 04/22/2017 04/25/20 17 documented as of this encounter (statuses as of 07/25/2022) [address]15-2017 History of Past illness Narrative* Problem Noted Date Resolved Date Small bowel obstruction 04/22/2017 04/25/20 17 documented as of this encounter (statuses as of 08/12/2022) [address]15-2017 History of Past illness Narrative* Problem Noted Date Resolved Date Small bowel obstruction 04/22/2017 04/25/20 17 documented as of this encounter (statuses as of 08/15/2022) [address]15-2017 History of Past illness Narrative* Problem Noted Date Resolved Date Small bowel obstruction 04/22/2017 04/25/20 17 documented as of this encounter (statuses as of 08/31/2022) [address]15-2017 History of Past illness Narrative* Problem Noted Date Resolved Date Small bowel obstruction 04/22/2017 04/25/20 17 documented as of this encounter (statuses as of 09/13/2022) [address]15-2017 History of Past illness Narrative* Problem Noted Date Resolved Date Small bowel obstruction 04/22/2017 04/25/20 17 documented as of this encounter (statuses as of 09/13/2022) [address]15-2017 History of Past illness Narrative* Problem Noted Date Resolved Date Small bowel obstruction 04/22/2017 04/25/20 17 documented as of this encounter (statuses as of 09/15/2022) [address]15-2017 History of Past illness Narrative* Problem Noted Date Resolved Date Small bowel obstruction 04/22/2017 04/25/20 17 documented as of this encounter (statuses as of 09/15/2022) [address]15-2017 History of Past illness Narrative* Problem Noted Date Resolved Date Small bowel obstruction 04/22/2017 04/25/20 17 documented as of this encounter (statuses as of 09/15/2022) [address]15[address]2017 History of Past illness Narrative* Problem Noted Date Resolved Date Small bowel obstruction 04/22/2017 04/25/20 17 documented as of this encounter (statuses as of 09/16/2022) [address]15-2017 History of Past illness Narrative* Problem Noted Date Resolved Date Small bowel obstruction 04/22/2017 04/25/20 17 documented as of this encounter (statuses as of 09/16/2022) [address]15-2017 History of Past illness Narrative* Problem Noted Date Resolved Date Small bowel obstruction 04/22/2017 04/25/20 17 documented as of this encounter (statuses as of 09/20/2022) [address]15-2017 History of Past illness Narrative* Problem Noted Date Resolved Date Small bowel obstruction 04/22/2017 04/25/20 17 documented as of this encounter (statuses as of 09/22/2022) [address]15-2017 History of Past illness Narrative* Problem Noted Date Resolved Date Small bowel obstruction 04/22/2017 04/25/20 17 documented as of this encounter (statuses as of 10/10/2022) [address]15-2017 History of Past illness Narrative* Problem Noted Date Resolved Date Small bowel obstruction 04/22/2017 04/25/20 17 documented as of this encounter (statuses as of 10/17/2022) [address]15-2017 History of Past illness Narrative* Problem Noted Date Resolved Date Small bowel obstruction 04/22/2017 04/25/20 17 documented as of this encounter (statuses as of 10/28/2022) [address]15-2017 History of Past illness Narrative* Problem Noted Date Resolved Date Small bowel obstruction 04/22/2017 04/25/20 17 documented as of this encounter (statuses as of 11/04/2022) [address]15-2017 History of Past illness Narrative* Problem Noted Date Resolved Date Small bowel obstruction 04/22/2017 04/25/20 17 documented as of this encounter (statuses as of 11/10/2022) [address]15-2017 History of Past illness Narrative* Problem Noted Date Resolved Date Small bowel obstruction 04/22/2017 04/25/20 17 documented as of this encounter (statuses as of 11/11/2022) [address]15-2017 History of Past illness Narrative* Problem Noted Date Resolved Date Small bowel obstruction 04/22/2017 04/25/20 17 documented as of this encounter (statuses as of 11/14/2022) [address]15-2017 History of Past illness Narrative* Problem Noted Date Resolved Date Small bowel obstruction 04/22/2017 04/25/20 17 documented as of this encounter (statuses as of 11/18/2022) [facility] Diagnosis Crohn's disease of both small and large intestine with intestinal obstruction (HCC) Regional enteritis of small intestine with large intestine documented in this encounter [employer] Phone: evaluation note* Diagnosis COVID-19- Primary documented in this encounter [employer] Phone: evaluation note* Diagnosis Dehydration- Primary Nausea vomiting and diarrhea Nausea with vomiting COVID-19 Hypokalemia Hypopotassemia documented in this encounter [employer] Phone: evaluation note* Diagnosis Crohn's disease of small and large intestines with complication (HCC) documented in this encounter [facility]* Diagnosis Crohn's disease of both small and large intestine without complication (HCC)- Primary Regional enteritis of small intestine with large intestine [facility] [place] [facility]* Diagnosis Crohn's disease of both small and large intestine without complication (HCC)- Primary Regional enteritis of small intestine with large intestine [facility] [place] [facility]* Diagnosis Diarrhea, unspecified type- Primary [facility] [place] [facility]* Diagnosis Crohn's disease of both small and large intestine without complication (HCC)- Primary Regional enteritis of small intestine with large intestine [facility] this [facility] [place] [facility]* Diagnosis Diarrhea, unspecified type documented in this [facility] [place] [facility]* Diagnosis Crohn's disease of small and large intestines with complication (HCC)- Primary [facility] [place] [facility]* Diagnosis Crohn's disease of both small and large intestine without complication (HCC)- Primary Regional enteritis of small intestine with large intestine [facility] [place] [facility]* Diagnosis Anemia, unspecified type- Primary Crohn's disease of small and large intestines with complication (HCC) documented [facility] this [facility] [place] [facility]* Diagnosis Anemia of renal disease Anemia in chronic kidney disease Other iron deficiency anemia documented [facility] this [facility] [place] [facility]* Diagnosis Anemia of renal disease- Primary Anemia in chronic kidney disease Other iron deficiency anemia [facility] [place] [facility]* Diagnosis Anemia of renal disease- Primary Anemia in chronic kidney disease Other iron deficiency anemia [facility] [place] [facility]* Diagnosis Crohn's disease of small and large intestines with complication (HCC)- Primary documented in this [facility] [place] [facility]* Diagnosis Large bowel obstruction (HCC)- Primary Unspecified intestinal obstruction documented in this encounter [facility] [employer] Phone: evaluation note* Diagnosis Postoperative examination- Primary Follow-up examination, following unspecified surgery documented in this encounter [facility] [place] [facility]* Diagnosis Feeding difficulties- Primary Feeding difficulties and mismanagement documented in this [facility] [place] [facility]* Diagnosis Diarrhea, unspecified type- Primary Short bowel syndrome Other and unspecified postsurgical nonabsorption On total parenteral nutrition (TPN) Other specified conditions influencing health status Therapeutic drug monitoring Encounter for therapeutic drug monitoring [facility] [place] [facility]* Diagnosis Crohn's disease of small and large intestines with complication (HCC)- Primary Crohn's disease of small and large intestines with complication (HCC) [facility] [place] [facility]* Diagnosis Diarrhea due to malabsorption- Primary Personal history of other diseases of digestive system Short bowel syndrome Other and unspecified postsurgical nonabsorption Crohn's disease of small and large intestines with complication (HCC) [facility] [place] [facility]* Diagnosis Anxiety Anxiety state, unspecified Vitamin D deficiency Unspecified vitamin D deficiency documented in this encounter [employer] Phone: evaluation note* Diagnosis 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)- Primary Regional enteritis of small intestine with large intestine Crohn's disease of small and large intestines with complication (HCC) documented in this encounter [facility] note* Diagnosis Diarrhea due to malabsorption- Primary Personal history of other diseases of digestive system Crohn's disease of small and large intestines with complication (HCC) [facility] [place] [facility]* Diagnosis Ileostomy in place (HCC) Ileostomy status Essential hypertension Unspecified essential hypertension Anxiety Anxiety state, unspecified History of DVT (deep vein thrombosis) Personal history of venous thrombosis and embolism Anemia, unspecified type SERENITY (acute kidney injury) (HCC) Acute kidney failure, unspecified Medical marijuana use Encounter for long-term (current) use of other medications Anemia of renal disease Anemia in chronic kidney disease On total parenteral nutrition (TPN) Other specified conditions influencing health status Fibromyalgia Mylagia and myositis, unspecified Crohn's disease of small and large intestines with complication (HCC) [facility] [place] [facility]* Diagnosis Attention to ileostomy (HCC)- Primary Attention to ileostomy documented [facility] this [facility] [place] [facility]* Diagnosis Postoperative examination- Primary Follow-up examination, following unspecified surgery documented [facility] [place] [facility]* Diagnosis Diarrhea due to malabsorption Personal history of other diseases of digestive system documented [facility] this encounter [facility] [place] [facility]* Diagnosis Abscess of leg- Primary Cellulitis and abscess of leg, except foot documented in this encounter [facility] note* Diagnosis Crohn's disease of small and large intestines with complication (HCC)- Primary documented in this encounter [facility] note* Diagnosis 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)- Primary Regional enteritis of small intestine with large intestine documented in this encounter [facility] note* Diagnosis On total parenteral nutrition (TPN) [Z78.9]- Primary Other specified conditions influencing health status documented in this encounter [facility] note* Diagnosis 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 On total parenteral nutrition (TPN) Other specified conditions influencing health status Therapeutic drug monitoring Encounter for therapeutic drug monitoring [facility] Diagnostic Procedure Only (Routine) - Pending Review Specialty Diagnoses / Procedures Referred By Luiz garcia Referred To Contact XR IMAGING Diagnoses 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) Procedures XR ILEOSTOMY INJECTION INJECTION SINUS TRACT DIAGNOSTIC Edy No DO [address] [place] [address] Xr Imaging Referral ID Status Reason Start Date Expiration Date Visits Requested Visits Authorized [id number] Pending Review Auto-Generat ed Referral 02/18/2023 03/19/2024 1 1 [facility] for visit Narrative* Treatment Plan and Therapy Plan (Routine) - Incomplete Specialty Diagnoses / Procedures Referred By Luiz garcia Referred To Contact Diagnoses COVID-19 Josué Joe MD [address] [place] [address], [facility] [place] [address] [facility] [address] [place], [place] [id number] Referral ID Status Reason Start Date Expiration Date V isits Requested Visits Authorized [id number] Incomplete 08/26/2021 08/26/2022 1 1 [place] Phone: Advance Directives No Advanced Directives Records FoundDocuments on File Type Date Recorded Patient Neurological Surgeon Expl anation ACP-Advance Directive ACP-Power of Security Guard Supervisor Latest Code Status on File Code Status Date Activated Date Inactivated Comments Full Code 05/01/2020 11:59 PM 05/04/2020 11:56 AM Full Code 08/18/2018 11:35 PM 08/22/2018 1:13 PM Full Code 01/14/2018 11:55 PM 01/18/2018 2:01 PM Full Code 04/21/2017 3:48 PM 04/22/2017 11:46 AM Documents on File Type Date Recorded Patient Neurological Surgeon Expl anation ACP-Advance Directive ACP-Power of Security Guard Supervisor Latest Code Status on File Code Status Date Activated Date Inactivated Comments Full Code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 iopamidol (ISOVUE-370) 76 % injection 75 mL (COMPLETED) 75 mL, IntraVENous, IMG ONCE PRN, 1 dose, Starting on 11/12/22 at 2010, Until 11/12/22 at 2010, Other 2010 (Given - Provider: Ashley Lee) Scheduled Medication Order 06/15/2023 06/16/2023 06/17/2023 mupirocin (BACTROBAN) 2 % ointment Topical, DAILY, First dose on 06/17/23 at 2100, With dsg 2100 (Due) Source Comments (unrecognize d section and content) In the event this informatio n is protected by the Federal Confidentiality of Alcohol and Drug Abuse Patient Records regulations: The Federal rules restrict any use of the information to criminally investigate or prosecute any alcohol or drug abuse patient.[facility] HealthcareIn the event this information is protected by the Federal Confidentiality of Alcohol and Drug Abuse Patient Records regulations: The Federal rules restrict any use of the information to criminally investigate or prosecute any alcohol or drug abuse patient.[facility] HealthcareIn the event this information is protected by the Federal Confidentiality of Alcohol and Drug Abuse Patient Records regulations: The Federal rules restrict any use of the information to criminally investigate or prosecute any alcohol or drug abuse patient.[facility] HealthcareIn the event this information is protected by the Federal Confidentiality of Alcohol and Drug Abuse Patient Records regulations: The Federal rules restrict any use of the information to criminally investigate or prosecute any alcohol or drug abuse patient.[facility] HealthcareIn the event this information is protected by the Federal Confidentiality of Alcohol and Drug Abuse Patient Records regulations: The Federal rules restrict any use of the information to criminally investigate or prosecute any alcohol or drug abuse patient.[facility] HealthcareIn the event this information is protected by the Federal Confidentiality of Alcohol and Drug Abuse Patient Records regulations: The Federal rules restrict any use of the information to criminally investigate or prosecute any alcohol or drug abuse patient.[facility] HealthcareIn the event this information is protected by the Federal Confidentiality of Alcohol and Drug Abuse Patient Records regulations: The Federal rules restrict any use of the information to criminally investigate or prosecute any alcohol or drug abuse patient.[facility] HealthcareIn the event this information is protected by the Federal Confidentiality of Alcohol and Drug Abuse Patient Records regulations: The Federal rules restrict any use of the information to criminally investigate or prosecute any alcohol or drug abuse patient.[facility] HealthcareIn the event this information is protected by the Federal Confidentiality of Alcohol and Drug Abuse Patient Records regulations: The Federal rules restrict any use of the information to criminally investigate or prosecute any alcohol or drug abuse patient.[facility] HealthcareIn the event this information is protected by the Federal Confidentiality of Alcohol and Drug Abuse Patient Records regulations: The Federal rules restrict any use of the information to criminally investigate or prosecute any alcohol or drug abuse patient.[facility] HealthcareIn the event this information is protected by the Federal Confidentiality of Alcohol and Drug Abuse Patient Records regulations: The Federal rules restrict any use of the information to criminally investigate or prosecute any alcohol or drug abuse patient.[facility] HealthcareIn the event this information is protected by the Federal Confidentiality of Alcohol and Drug Abuse Patient Records regulations: The Federal rules restrict any use of the information to criminally investigate or prosecute any alcohol or drug abuse patient.[facility] HealthcareIn the event this information is protected by the Federal Confidentiality of Alcohol and Drug Abuse Patient Records regulations: The Federal rules restrict any use of the information to criminally investigate or prosecute any alcohol or drug abuse patient.[facility] HealthcareIn the event this information is protected by the Federal Confidentiality of Alcohol and Drug Abuse Patient Records regulations: The Federal rules restrict any use of the information to criminally investigate or prosecute any alcohol or drug abuse patient.[facility] HealthcareIn the event this information is protected by the Federal Confidentiality of Alcohol and Drug Abuse Patient Records regulations: The Federal rules restrict any use of the information to criminally investigate or prosecute any alcohol or drug abuse patient.[facility] HealthcareIn the event this information is protected by the Federal Confidentiality of Alcohol and Drug Abuse Patient Records regulations: The Federal rules restrict any use of the information to criminally investigate or prosecute any alcohol or drug abuse patient.[facility] HealthcareIn the event this information is protected by the Federal Confidentiality of Alcohol and Drug Abuse Patient Records regulations: The Federal rules restrict any use of the information to criminally investigate or prosecute any alcohol or drug abuse patient.[facility] HealthcareIn the event this information is protected by the Federal Confidentiality of Alcohol and Drug Abuse Patient Records regulations: The Federal rules restrict any use of the information to criminally investigate or prosecute any alcohol or drug abuse patient.[facility] HealthcareIn the event this information is protected by the Federal Confidentiality of Alcohol and Drug Abuse Patient Records regulations: The Federal rules restrict any use of the information to criminally investigate or prosecute any alcohol or drug abuse patient.[facility] HealthcareIn the event this information is protected by the Federal Confidentiality of Alcohol and Drug Abuse Patient Records regulations: The Federal rules restrict any use of the information to criminally investigate or prosecute any alcohol or drug abuse patient.[facility] HealthcareIn the event this information is protected by the Federal Confidentiality of Alcohol and Drug Abuse Patient Records regulations: The Federal rules restrict any use of the information to criminally investigate or prosecute any alcohol or drug abuse patient.[facility] HealthcareIn the event this information is protected by the Federal Confidentiality of Alcohol and Drug Abuse Patient Records regulations: The Federal rules restrict any use of the information to criminally investigate or prosecute any alcohol or drug abuse patient.[facility] HealthcareIn the event this information is protected by the Federal Confidentiality of Alcohol and Drug Abuse Patient Records regulations: The Federal rules restrict any use of the information to criminally investigate or prosecute any alcohol or drug abuse patient.[facility] HealthcareIn the event this information is protected by the Federal Confidentiality of Alcohol and Drug Abuse Patient Records regulations: The Federal rules restrict any use of the information to criminally investigate or prosecute any alcohol or drug abuse patient.[facility] HealthcareIn the event this information is protected by the Federal Confidentiality of Alcohol and Drug Abuse Patient Records regulations: The Federal rules restrict any use of the information to criminally investigate or prosecute any alcohol or drug abuse patient.[facility] HealthcareIn the event this information is protected by the Federal Confidentiality of Alcohol and Drug Abuse Patient Records regulations: The Federal rules restrict any use of the information to criminally investigate or prosecute any alcohol or drug abuse patient.[facility] HealthcareIn the event this information is protected by the Federal Confidentiality of Alcohol and Drug Abuse Patient Records regulations: The Federal rules restrict any use of the information to criminally investigate or prosecute any alcohol or drug abuse patient.[facility] HealthcareIn the event this information is protected by the Federal Confidentiality of Alcohol and Drug Abuse Patient Records regulations: The Federal rules restrict any use of the information to criminally investigate or prosecute any alcohol or drug abuse patient.[facility] HealthcareIn the event this information is protected by the Federal Confidentiality of Alcohol and Drug Abuse Patient Records regulations: The Federal rules restrict any use of the information to criminally investigate or prosecute any alcohol or drug abuse patient.[facility] HealthcareIn the event this information is protected by the Federal Confidentiality of Alcohol and Drug Abuse Patient Records regulations: The Federal rules restrict any use of the information to criminally investigate or prosecute any alcohol or drug abuse patient.[facility] HealthcareIn the event this information is protected by the Federal Confidentiality of Alcohol and Drug Abuse Patient Records regulations: The Federal rules restrict any use of the information to criminally investigate or prosecute any alcohol or drug abuse patient.[facility] HealthcareIn the event this information is protected by the Federal Confidentiality of Alcohol and Drug Abuse Patient Records regulations: The Federal rules restrict any use of the information to criminally investigate or prosecute any alcohol or drug abuse patient.[facility] HealthcareIn the event this information is protected by the Federal Confidentiality of Alcohol and Drug Abuse Patient Records regulations: The Federal rules restrict any use of the information to criminally investigate or prosecute any alcohol or drug abuse patient.[facility] HealthcareIn the event this information is protected by the Federal Confidentiality of Alcohol and Drug Abuse Patient Records regulations: The Federal rules restrict any use of the information to criminally investigate or prosecute any alcohol or drug abuse patient.[facility] HealthcareIn the event this information is protected by the Federal Confidentiality of Alcohol and Drug Abuse Patient Records regulations: The Federal rules restrict any use of the information to criminally investigate or prosecute any alcohol or drug abuse patient.[facility] HealthcareIn the event this information is protected by the Federal Confidentiality of Alcohol and Drug Abuse Patient Records regulations: The Federal rules restrict any use of the information to criminally investigate or prosecute any alcohol or drug abuse patient.[facility] HealthcareIn the event this information is protected by the Federal Confidentiality of Alcohol and Drug Abuse Patient Records regulations: The Federal rules restrict any use of the information to criminally investigate or prosecute any alcohol or drug abuse patient.[facility] HealthcareIn the event this information is protected by the Federal Confidentiality of Alcohol and Drug Abuse Patient Records regulations: The Federal rules restrict any use of the information to criminally investigate or prosecute any alcohol or drug abuse patient.[facility] HealthcareIn the event this information is protected by the Federal Confidentiality of Alcohol and Drug Abuse Patient Records regulations: The Federal rules restrict any use of the information to criminally investigate or prosecute any alcohol or drug abuse patient.[facility] HealthcareIn the event this information is protected by the Federal Confidentiality of Alcohol and Drug Abuse Patient Records regulations: The Federal rules restrict any use of the information to criminally investigate or prosecute any alcohol or drug abuse patient.[facility] HealthcareIn the event this information is protected by the Federal Confidentiality of Alcohol and Drug Abuse Patient Records regulations: The Federal rules restrict any use of the information to criminally investigate or prosecute any alcohol or drug abuse patient.[facility] HealthcareIn the event this information is protected by the Federal Confidentiality of Alcohol and Drug Abuse Patient Records regulations: The Federal rules restrict any use of the information to criminally investigate or prosecute any alcohol or drug abuse patient.[facility] HealthcareIn the event this information is protected by the Federal Confidentiality of Alcohol and Drug Abuse Patient Records regulations: The Federal rules restrict any use of the information to criminally investigate or prosecute any alcohol or drug abuse patient.[facility] HealthcareIn the event this information is protected by the Federal Confidentiality of Alcohol and Drug Abuse Patient Records regulations: The Federal rules restrict any use of the information to criminally investigate or prosecute any alcohol or drug abuse patient.[facility] HealthcareIn the event this information is protected by the Federal Confidentiality of Alcohol and Drug Abuse Patient Records regulations: The Federal rules restrict any use of the information to criminally investigate or prosecute any alcohol or drug abuse patient.[facility] HealthcareIn the event this information is protected by the Federal Confidentiality of Alcohol and Drug Abuse Patient Records regulations: The Federal rules restrict any use of the information to criminally investigate or prosecute any alcohol or drug abuse patient.[facility] HealthcareIn the event this information is protected by the Federal Confidentiality of Alcohol and Drug Abuse Patient Records regulations: The Federal rules restrict any use of the information to criminally investigate or prosecute any alcohol or drug abuse patient.[facility] HealthcareIn the event this information is protected by the Federal Confidentiality of Alcohol and Drug Abuse Patient Records regulations: The Federal rules restrict any use of the information to criminally investigate or prosecute any alcohol or drug abuse patient.[facility] HealthcareIn the event this information is protected by the Federal Confidentiality of Alcohol and Drug Abuse Patient Records regulations: The Federal rules restrict any use of the information to criminally investigate or prosecute any alcohol or drug abuse patient.[facility] HealthcareIn the event this information is protected by the Federal Confidentiality of Alcohol and Drug Abuse Patient Records regulations: The Federal rules restrict any use of the information to criminally investigate or prosecute any alcohol or drug abuse patient.[facility] HealthcareIn the event this information is protected by the Federal Confidentiality of Alcohol and Drug Abuse Patient Records regulations: The Federal rules restrict any use of the information to criminally investigate or prosecute any alcohol or drug abuse patient.[facility] HealthcareIn the event this information is protected by the Federal Confidentiality of Alcohol and Drug Abuse Patient Records regulations: The Federal rules restrict any use of the information to criminally investigate or prosecute any alcohol or drug abuse patient.[facility] HealthcareIn the event this information is protected by the Federal Confidentiality of Alcohol and Drug Abuse Patient Records regulations: The Federal rules restrict any use of the information to criminally investigate or prosecute any alcohol or drug abuse patient.[facility] HealthcareIn the event this information is protected by the Federal Confidentiality of Alcohol and Drug Abuse Patient Records regulations: The Federal rules restrict any use of the information to criminally investigate or prosecute any alcohol or drug abuse patient.[facility] HealthcareIn the event this information is protected by the Federal Confidentiality of Alcohol and Drug Abuse Patient Records regulations: The Federal rules restrict any use of the information to criminally investigate or prosecute any alcohol or drug abuse patient.[facility] HealthcareIn the event this information is protected by the Federal Confidentiality of Alcohol and Drug Abuse Patient Records regulations: The Federal rules restrict any use of the information to criminally investigate or prosecute any alcohol or drug abuse patient.[facility] HealthcareIn the event this information is protected by the Federal Confidentiality of Alcohol and Drug Abuse Patient Records regulations: The Federal rules restrict any use of the information to criminally investigate or prosecute any alcohol or drug abuse patient.[facility] HealthcareIn the event this information is protected by the Federal Confidentiality of Alcohol and Drug Abuse Patient Records regulations: The Federal rules restrict any use of the information to criminally investigate or prosecute any alcohol or drug abuse patient.[facility] HealthcareIn the event this information is protected by the Federal Confidentiality of Alcohol and Drug Abuse Patient Records regulations: The Federal rules restrict any use of the information to criminally investigate or prosecute any alcohol or drug abuse patient.[facility] HealthcareIn the event this information is protected by the Federal Confidentiality of Alcohol and Drug Abuse Patient Records regulations: The Federal rules restrict any use of the information to criminally investigate or prosecute any alcohol or drug abuse patient.[facility] HealthcareIn the event this information is protected by the Federal Confidentiality of Alcohol and Drug Abuse Patient Records regulations: The Federal rules restrict any use of the information to criminally investigate or prosecute any alcohol or drug abuse patient.[facility] HealthcareIn the event this information is protected by the Federal Confidentiality of Alcohol and Drug Abuse Patient Records regulations: The Federal rules restrict any use of the information to criminally investigate or prosecute any alcohol or drug abuse patient.[facility] HealthcareIn the event this information is protected by the Federal Confidentiality of Alcohol and Drug Abuse Patient Records regulations: The Federal rules restrict any use of the information to criminally investigate or prosecute any alcohol or drug abuse patient.[facility] HealthcareIn the event this information is protected by the Federal Confidentiality of Alcohol and Drug Abuse Patient Records regulations: The Federal rules restrict any use of the information to criminally investigate or prosecute any alcohol or drug abuse patient.[facility] HealthcareIn the event this information is protected by the Federal Confidentiality of Alcohol and Drug Abuse Patient Records regulations: The Federal rules restrict any use of the information to criminally investigate or prosecute any alcohol or drug abuse patient.[facility] HealthcareIn the event this information is protected by the Federal Confidentiality of Alcohol and Drug Abuse Patient Records regulations: The Federal rules restrict any use of the information to criminally investigate or prosecute any alcohol or drug abuse patient.[facility] HealthcareIn the event this information is protected by the Federal Confidentiality of Alcohol and Drug Abuse Patient Records regulations: The Federal rules restrict any use of the information to criminally investigate or prosecute any alcohol or drug abuse patient.[facility] HealthcareIn the event this information is protected by the Federal Confidentiality of Alcohol and Drug Abuse Patient Records regulations: The Federal rules restrict any use of the information to criminally investigate or prosecute any alcohol or drug abuse patient.[facility] HealthcareIn the event this information is protected by the Federal Confidentiality of Alcohol and Drug Abuse Patient Records regulations: The Federal rules restrict any use of the information to criminally investigate or prosecute any alcohol or drug abuse patient.[facility] HealthcareIn the event this information is protected by the Federal Confidentiality of Alcohol and Drug Abuse Patient Records regulations: The Federal rules restrict any use of the information to criminally investigate or prosecute any alcohol or drug abuse patient.[facility] HealthcareIn the event this information is protected by the Federal Confidentiality of Alcohol and Drug Abuse Patient Records regulations: The Federal rules restrict any use of the information to criminally investigate or prosecute any alcohol or drug abuse patient.[facility] HealthcareIn the event this information is protected by the Federal Confidentiality of Alcohol and Drug Abuse Patient Records regulations: The Federal rules restrict any use of the information to criminally investigate or prosecute any alcohol or drug abuse patient.[facility] HealthcareIn the event this information is protected by the Federal Confidentiality of Alcohol and Drug Abuse Patient Records regulations: The Federal rules restrict any use of the information to criminally investigate or prosecute any alcohol or drug abuse patient.[facility] HealthcareIn the event this information is protected by the Federal Confidentiality of Alcohol and Drug Abuse Patient Records regulations: The Federal rules restrict any use of the information to criminally investigate or prosecute any alcohol or drug abuse patient.[facility] HealthcareIn the event this information is protected by the Federal Confidentiality of Alcohol and Drug Abuse Patient Records regulations: The Federal rules restrict any use of the information to criminally investigate or prosecute any alcohol or drug abuse patient.[facility] HealthcareIn the event this information is protected by the Federal Confidentiality of Alcohol and Drug Abuse Patient Records regulations: The Federal rules restrict any use of the information to criminally investigate or prosecute any alcohol or drug abuse patient.[facility] HealthcareIn the event this information is protected by the Federal Confidentiality of Alcohol and Drug Abuse Patient Records regulations: The Federal rules restrict any use of the information to criminally investigate or prosecute any alcohol or drug abuse patient.[facility] HealthcareIn the event this information is protected by the Federal Confidentiality of Alcohol and Drug Abuse Patient Records regulations: The Federal rules restrict any use of the information to criminally investigate or prosecute any alcohol or drug abuse patient.[facility] INFORMATION SOURCE (unrecogn ized section and content) DATE CREATED AUTHOR 09/29/2022 [facility] DATE CREATED AUTHOR AUTHOR'S ORGANIZ ATION 10/01/2022 [facility] DATE CREATED AUTHOR AUTHOR'S ORGANIZ ATION 03/22/2023 [facility] DATE CREATED AUTHOR AUTHOR'S ORGANIZ ATION 08/17/2023 [facility] DATE CREATED AUTHOR AUTHOR'S ORGANIZ ATION 09/25/2023 [facility] FOR RECORDS PERTAINING TO PATIENTS WHO ARE OR HAVE BEEN ENROLLED IN A CHEMICAL DEPENDENCY/SUBSTANCEABUSE PROGRAM, SOME INFORMATION MAY BE OMITTED. This clinical summary was aggregated from multiple sources. Caution should be exercised in using it in the provision of clinical care. This summary normalizes information from multiple sources, and as a consequence, information in this document may materially change the coding, format and clinical context of patient data. In addition, data may be omitted in some cases. CLINICAL DECISIONS SHOULD BE BASED ON THE PRIMARY CLINICAL RECORDS. [facility] [employer] [facility]. provides no warranty or guarantee of the accuracy or completeness of information in this document.
== END 2023-10-05 13:57 | disposition home or self-care (01) ==
LOC: LAB 13:56
DX: K50.118 Crohn's disease of large intestine with other complication (principal); Z93.2 Ileostomy status
CPT/HCPCS: 36415; 82495